=== PATIENT | male | born 1950 | race Caucasian/White ===

== ENCOUNTER 2018-03-16 10:18 | Outpatient (RCR) | payer MEDICARE, BC, SELFPAY ==
--- NOTE | 2018-03-17 09:36 | PT.OIE ---
Current Diagnoses Dizziness and giddiness (03/16/18) Past Surgical History History of carpal tunnel repair History of knee replacement Status post cholecystectomy Status post hernia repair Provider Visit Care Team Role Provider Type Hammad Tucker MD Family Provider Physician Primary Care Provider Specialty: Family Practice Address: [address] [place] [address], [id number] Email: [email or web address] Lior Bejarano MD Attending Provider Physician Specialty: Ear, Nose, Throat Address: [address] [place] [address], [id number] Email: Physical Therapy Initial Evaluation PT-OP-A Visit Information Start: 03/17/18 08:35 Freq: Status: Active Protocol: Document 03/16/18 10:30 DCW (Rec: 03/17/18 08:53 DCW [id number]) Out-Patient Physical Therapy Visit Information Visit Information Visit Type Initial Evaluation Visit Start Time 10:30 Visit Stop Time 11:15 Total Visit Minutes 45 Visit Number 1 Number of ASSOCIATE ACCOUNTANT Visits 0 Evaluation Information Evaluation Date 03/16/18 PT-OP-B Current Condition Start: 03/17/18 08:35 Freq: Status: Active Protocol: Document 03/16/18 10:30 DCW (Rec: 03/17/18 08:53 DCW [id number]) Current Condition History of Current Condition Onset Date s/p one month Current Complaints Worsening balance History of Current Condition Pt is a 67 year old male complaining of a one month history of worsening balance. Pt has previously been treated for BPPV multiple times at this clinic, but feels like his current symptoms are different than they have been in the past. Pt does not that he will still occasionally get some symptoms when rolling over in bed, but it is more an issue when he is walking outside or working in his garden. Patient notes his medical history has not changed since his prior visits , however does admit that his back and neck are worsening, and he has been told he should think about surgical intervention for his low back. Pt denies recent hearing changes, tinnitus, diplopia, dysarthria, discoordination, or decreased mentation/ consciousness. Pt reports symptoms are waxing/waning in nature, noting that they switch off and on constantly. Prior Treatments and Tests Previously successfully treated BPPV with Brittney maneuver Future Testing and Treatments Planned Pt reports he is being sent to [facility] for a full balance work-up. Treatment Goals Patient/Caregiver Goals Pt is curious if his current symptoms are still associated with BPPV, or if he has something else going on. Prior Functional Status Baseline Function- ADL's Independent Baseline Function- Mobility Independent Baseline Function- Recreation/Hobbies Hiking, Fishing, Camping, Gardening Current Functional Impairments (Reported) Functional Limitations- Recreation/ Pt reports he has been more Hobbies active in the garden over the past month, notes that his decreased balance will occasionally bother him, but when he gets out in the [place] walking around, it's generally pretty good. Personal Factors Other Personal Factors That May Effect Cervical and Lumbar DJD Therapy/Recovery PT-OP-C Subjective Start: 03/17/18 08:35 Freq: Status: Active Protocol: Document 03/16/18 10:30 DCW (Rec: 03/17/18 08:53 DCW [id number]) Patient Questionnaires Dizziness Handicap Inventory DHI Score 64 DHI Functional Impairment 60 to 79% Impaired (Score 60- 79) PT-OP-E Functional Tests Start: 03/17/18 08:56 Freq: Status: Active Protocol: Document 03/16/18 10:30 DCW (Rec: 03/17/18 08:58 DCW [id number]) Functional Tests Dynamic Gait Index (DGI) Score 21 DGI Impairment Rating 1 to <20% Impaired (Score 20- 23) Functional Gait Assessment Score 26 Functional Gait Assessment Impairment 1 to <20% Impaired (Score 25- Rating 29) PT-OP-O Vestibular Start: 03/17/18 08:35 Freq: Status: Active Protocol: Document 03/16/18 10:30 DCW (Rec: 03/17/18 08:53 DCW [id number]) Vestibular Assessment Screening Tests Vestibular Artery Screen Negative Auditory Tests Mcgraw Test Negative Rinne Test Negative Air Conduction Results Equal Visual Testing Smooth Pursuits Horizontal Negative Saccades Horizontal Negative Gaze Evoked Nystagmus With Fixation Negative Gaze Evoked Nystagmus Without Fixation Negative Heave Test Negative Thrust Head Negative Positional Testing Locke-Hallpike Negative Left Negative Right Rolling Test Negative Left Negative Right Sidelying Test Negative Left Negative Right PT-OP-T Assessment and Plan Start: 03/17/18 08:35 Freq: Status: Active Protocol: Document 03/16/18 10:30 DCW (Rec: 03/17/18 09:36 DCW [id number]) Physical Therapy Assessment Rehab Potential Rehabilitation Potential Fair Evaluation Complexity Number of Personal Factors/Comorbidities 3 or More Number of Body Systems Impaired 1-2 Clinical Presentation at Evaluation Stable Impairments Impairments Balance Assessment Summary Assessment Patient's vestibular examination is largely negative, with his only impairment being a few points off during both the DGI and FGA, however he is still well within the normal expected limits for his age. discussed findings with the patient, and he agrees that there is nothing specific to work in for skilled therapy, and he is hoping to get more answers from his upcoming complete balance test in [place]. Pt does not have any more appointments scheduled at this time, and he will be discharged, with the understanding that he can return with a new referral if needed after his balance test in [place]. Physical Therapy Plan Frequency and Duration Frequency of Treatment Discharge Duration of Treatment 1 Day Plan of Care Start Date 03/16/18 Plan of Care End Date 03/17/18 Discharge Physical Therapy Discharge Comments Further skilled therapy not indicated at this time. Next Visit Focus/Plan Next Visit Plan Discharge Provider Signature Date
--- NOTE | 2018-03-17 09:36 | PT.OPPOC ---
Current Diagnoses Dizziness and giddiness (03/16/18) Provider Visit Care Team Role Provider Type Hammad Tucker MD Family Provider Physician Primary Care Provider Specialty: Family Practice Address: [address] [place] [address], [id number] Email: [email or web address] Lior Bejarano MD Attending Provider Physician Specialty: Ear, Nose, Throat Address: [address] [place] [address], [phone] Email: Plan Of Care PT-OP-T Assessment and Plan Start: 03/17/18 08:35 Freq: Status: Active Protocol: Document 03/16/18 10:30 DCW (Rec: 03/17/18 09:36 DCW [id number]) Physical Therapy Assessment Rehab Potential Rehabilitation Potential Fair Evaluation Complexity Number of Personal Factors/Comorbidities 3 or More Number of Body Systems Impaired 1-2 Clinical Presentation at Evaluation Stable Impairments Impairments Balance Assessment Summary Assessment Patient's vestibular examination is largely negative, with his only impairment being a few points off during both the DGI and FGA, however he is still well within the normal expected limits for his age. discussed findings with the patient, and he agrees that there is nothing specific to work in for skilled therapy, and he is hoping to get more answers from his upcoming complete balance test in [place]. Pt does not have any more appointments scheduled at this time, and he will be discharged, with the understanding that he can return with a new referral if needed after his balance test in [place]. Physical Therapy Plan Frequency and Duration Frequency of Treatment Discharge Duration of Treatment 1 Day Plan of Care Start Date 03/16/18 Plan of Care End Date 03/17/18 Discharge Physical Therapy Discharge Comments Further skilled therapy not indicated at this time. Next Visit Focus/Plan Next Visit Plan Discharge Plan of Care Dates Plan of Care Start Date 03/16/18 Plan of Care End Date 03/17/18 Please Sign and Return: I have reviewed this Plan of Care and certify that the skilled therapy services above are required to meet the patient???s needs. Physician Signature Date Printed Name and Credentials
== END 2018-04-05 10:47 ==
LOC: PHYS 10:18
PROVIDERS: Family Provider Family Medicine; PCP Family Medicine; Visit Provider Otolaryngology
DX: R42 Dizziness and giddiness (principal)
CPT/HCPCS: 97161

== ENCOUNTER → 2018-04-26 09:30 | Outpatient (CLI) | payer MEDICARE, BC, SELFPAY ==
[2018-04-26 10:16] LABS: Hemoglobin A1C% w Est Avg Glu 7.2 % (4.0-6.0)
[2018-04-26 10:46] LABS: Thyroid Stimulating Hormone 2.77 uIU/mL (0.47-4.68)
== END ==
PROVIDERS: Family Provider Family Medicine; PCP Family Medicine; Visit Provider Family Medicine
DX: E11.9 Type 2 diabetes mellitus without complications (principal)
CPT/HCPCS: 36415; 83036; 84443

== ENCOUNTER → 2018-10-09 12:04 | Outpatient (CLI) | payer MEDICARE, BC, SELFPAY ==
[2018-10-09 13:03] LABS: Hemoglobin A1C% w Est Avg Glu 8.5 % (4.0-6.0)
[2018-10-09 13:57] LABS: BUN Creatinine Ratio 13.8 (6-22); Blood Urea Nitrogen 11 mg/dL (9-20); Calcium 9.8 mg/dL (8.4-10.2); Carbon Dioxide 24 mmol/L (22-32); Chloride 103 mmol/L (98-107); Estimated Glomerular Filt Rate > 60.0 mL/min (>60); Glucose 170 mg/dL (80-110); HEMOLYSIS < 15 (0-50); Potassium 4.4 mmol/L (3.4-5.1); Sodium 141 mmol/L (137-145)
[2018-10-09 14:28] LABS: Thyroid Stimulating Hormone 2.64 uIU/mL (0.47-4.68)
[2018-10-09 15:37] LABS: Creatinine Urine Random 179.9 mg/dL
[2018-10-09 15:42] LABS: Microalbumi Creatinin Ratio Ur 7.7 ug/mg CR (<30); Microalbumin Urine Random 1.4 mg/dL (0-1.6)
== END ==
PROVIDERS: Family Provider Family Medicine; PCP Family Medicine; Visit Provider Family Medicine
DX: E11.9 Type 2 diabetes mellitus without complications (principal); I10 Essential (primary) hypertension
CPT/HCPCS: 36415; 80048; 82043; 82570; 83036; 84443

== ENCOUNTER → 2019-03-12 15:35 | Outpatient (CLI) | payer MEDICARE, BC, SELFPAY ==
[2019-03-12 16:27] LABS: Add Manual Diff / Slide Review NO; Basophils Absolute Auto 0 /uL (0-100); Basophils Percent Auto 0.6 % (0-2); Eosinophils Absolute Auto 200 /uL (0-450); Eosinophils Percent Auto 3.6 % (2-4); Hematocrit 44.6 % (41-53); Hemoglobin 15.6 g/dL (13.5-17.5); Lymphocytes Absolute Auto 1400 /uL (1100-4500); Lymphocytes Percent Auto 22.9 % (25-40); Mean Corpuscular HGB Conc 34.9 % (30-36); Mean Corpuscular Hemoglobin 35.3 PG (26-34); Mean Corpuscular Volume 101.2 fL (80-100); Monocytes Absolute Auto 500 /uL (0-900); Monocytes Percent Auto 7.8 % (3-14); Neutrophils Absolute Auto 4000 /uL (1500-7000); Neutrophils Percent Auto 65.1 % (50-75); Platelet Count 206 X10^3/uL (150-400); Red Blood Cell Count 4.41 X10^6/uL (4.5-5.9); Red Cell Distribution Width 13.1 % (11.6-14.8); White Blood Cell Count 6.1 X10^3/uL (4.5-11.0)
[2019-03-12 16:37] LABS: Hemoglobin A1C% w Est Avg Glu 7.3 % (4.0-6.0)
[2019-03-12 16:57] LABS: Alanine Aminotransferase 36 IU/L (21-72); Albumin 4.3 g/dL (3.5-5.0); Albumin Globulin Ratio 1.9 (1.0-2.8); Alkaline Phosphatase 87 U/L (38-126); Aspartate Aminotransferase 50 IU/L (17-59); BUN Creatinine Ratio 21.1 (6-22); Bilirubin Total 0.6 mg/dL (0.2-1.3); Blood Urea Nitrogen 19 mg/dL (9-20); Calcium 9.9 mg/dL (8.4-10.2); Carbon Dioxide 25 mmol/L (22-32); Chloride 105 mmol/L (98-107); Cholesterol 157 mg/dL (140-199); Estimated Glomerular Filt Rate > 60.0 mL/min (>60); Globulin 2.3 g/dL (1.7-4.1); Glucose 138 mg/dL (80-110); HDL Cholesterol 53 mg/dL (40-60); HEMOLYSIS < 15 (0-50); LDL Cholesterol Calculated 82 mg/dL (<100); Potassium 4.1 mmol/L (3.4-5.1); Sodium 140 mmol/L (137-145); Total Protein 6.6 g/dL (6.3-8.2); Triglycerides 109 mg/dL (35-150)
[2019-03-12 17:25] LABS: Prostate Specific Antigen Scrn 1.37 ng/mL (0.1-4.0); Thyroid Stimulating Hormone 1.64 uIU/mL (0.47-4.68)
== END ==
PROVIDERS: Family Provider Family Medicine; PCP Family Medicine; Visit Provider Family Medicine
DX: E78.2 Mixed hyperlipidemia (principal); E03.9 Hypothyroidism, unspecified; Z12.5 Encounter for screening for malignant neoplasm of prostate; E11.9 Type 2 diabetes mellitus without complications
CPT/HCPCS: 36415; 80053; 80061; 83036; 84443; 85025; G0103

== ENCOUNTER → 2019-07-11 15:24 | Outpatient (CLI) | payer MEDICARE, BC, SELFPAY ==
[2019-07-11 16:17] LABS: Blood Urea Nitrogen 18 mg/dL (9-20); Calcium 9.9 mg/dL (8.4-10.2); Carbon Dioxide 25 mmol/L (22-32); Chloride 104 mmol/L (98-107); Estimated Glomerular Filt Rate > 60.0 mL/min (>60); Glucose 174 mg/dL (80-110); HEMOLYSIS < 15 (0-50); Potassium 4.2 mmol/L (3.4-5.1); Sodium 140 mmol/L (137-145)
== END ==
PROVIDERS: PCP Family Medicine; Visit Provider Family Medicine
DX: E11.9 Type 2 diabetes mellitus without complications (principal)
CPT/HCPCS: 36415; 80048; 83036

== ENCOUNTER → 2019-08-02 10:46 | Outpatient (CLI) | payer MEDICARE, BC, SELFPAY | PROVIDERS: PCP Family Medicine; Visit Provider Family Medicine | DX: M79.601 Pain in right arm (principal); R25.2 Cramp and spasm | CPT/HCPCS: 95885; 95886; 95910 ==

== ENCOUNTER → 2019-08-14 12:13 | Outpatient (CLI) | payer MEDICARE, BC, SELFPAY ==
[2019-08-14 13:46] LABS: BUN Creatinine Ratio 18.6 (6-22); Blood Urea Nitrogen 13 mg/dL (9-20); Calcium 9.6 mg/dL (8.4-10.2); Carbon Dioxide 24 mmol/L (22-32); Chloride 101 mmol/L (98-107); Estimated Glomerular Filt Rate > 60.0 mL/min (>60); Glucose 262 mg/dL (80-110); HEMOLYSIS < 15 (0-50); Potassium 4.1 mmol/L (3.4-5.1); Sodium 138 mmol/L (137-145)
[2019-08-14 13:57] LABS: Vitamin D 25 Hydroxy (D3) 32.7 ng/mL (30.0-100.0)
[2019-08-14 14:29] LABS: Vitamin B12 450 pg/mL (239-931)
[2019-08-16 18:33] LABS: Folate, RBC 440 ng/mL RBC (> 280)
== END ==
PROVIDERS: PCP Family Medicine; Visit Provider Hospitalist
DX: R53.83 Other fatigue (principal); I10 Essential (primary) hypertension
CPT/HCPCS: 36415; 80048; 82306; 82607; 82747

== ENCOUNTER → 2019-08-21 10:43 | Outpatient (CLI) | payer MEDICARE, BC, SELFPAY ==
[2019-08-21 11:45] LABS: Hemoglobin A1C% w Est Avg Glu 7.1 % (4.0-6.0)
[2019-08-21 12:02] LABS: Blood Urea Nitrogen 16 mg/dL (9-20); Calcium 9.8 mg/dL (8.4-10.2); Carbon Dioxide 22 mmol/L (22-32); Chloride 104 mmol/L (98-107); Estimated Glomerular Filt Rate > 60.0 mL/min (>60); Glucose 128 mg/dL (80-110); HEMOLYSIS < 15 (0-50); Potassium 4.5 mmol/L (3.4-5.1); Sodium 138 mmol/L (137-145)
== END ==
PROVIDERS: PCP Family Medicine; Visit Provider Family Medicine
DX: E11.9 Type 2 diabetes mellitus without complications (principal)
CPT/HCPCS: 36415; 80048; 83036

== ENCOUNTER 2019-09-25 16:41 | Emergency (ER) | payer MEDICARE, BC, SELFPAY ==
[2019-09-25 16:48] VITALS: BP 153/101; PULSE 77; RESP 16; TEMP 36.6; O2SAT 95
--- NOTE | 2019-09-25 16:53 | ED.EYEPROB ---
HPI - Eye Problem <Slime Atwood PA-C - Last Filed: 09/25/19 19:25> General Chief complaint: Eye Problems Stated complaint: VISION GWEN BLACK WHEN DRIVING Time Seen by Provider: 09/25/19 16:53 Source: patient Mode of arrival: Ambulatory Limitations: no limitations History of Present Illness HPI Narrative: This 69-year-old gentleman drove to ED secondary to transient visual change while driving. He states that his vision just got somewhat cloudy in both eyes for 3 or 4 seconds, and he felt a little bit flushed, then back to normal. He states that he has been feeling fine today, no recent illness or fever. He states he has had some stress dealing with his 's illness so is somewhat tired but other than that feels normal. He has not had any chest pain, palpitations or dyspnea. He denies any difficulty with speech, swallowing or coordination today, and states he is currently feeling at his baseline. He does have history of atrial fibrillation and had cardioversion for that years ago, not symptomatic now. Has a history of diabetes that is currently diet controlled and hyperlipidemia, denies history of HTN, no history of CVA or PR Related Data Home Medications Medication Instructions Recorded Confirmed omeprazole 20 mg capsule,delayed 20 mg PO BID 08/28/19 09/25/19 release clindamycin phosphate 1 applic TOPICAL DIRECTED 09/25/19 09/25/19 ketoconazole TOPICAL 09/25/19 levothyroxine 100 mcg PO DAILY 09/25/19 09/25/19 Allergies Allergy/AdvReac Type Severity Reaction Status Date / Time No Known Allergies Allergy Uncoded 08/28/19 09:46 Review of Systems <Slime Atwood PA-C - Last Filed: 09/25/19 19:25> Review of Systems ROS Unobtainable: All systems reviewed & are unremarkable except as noted in HPI and below Patient History <Slime Atwood PA-C - Last Filed: 09/25/19 19:25> Medical History (Updated 09/25/19 @ 18:25 by Slime Awtood PA-C) Atrial fibrillation (Resolved 03/12/14) Hyperlipidemia (Chronic) Type 2 diabetes mellitus without complication (Chronic 11/16/17) Surgical History History of carpal tunnel repair History of knee replacement Status post cholecystectomy Status post hernia repair Social History marital status: number of children: 1 household members: spouse lives independently: Yes caregiver/support person: No housing: house pets and animals: No education level: college occupational status: other (Retired) current occupational exposures/hazards: No 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 HEENT: PERRLA, EOMI, vision OS 20/20, OD 20/20, OU 20/15 NECK: Supple LUNGS: Clear to auscultation bilaterally. HEART: Rate and rhythm regular without murmur, normal S1 and S2, no S3 or S4. ABDOMEN: Soft, NT, ND, + BS x 4 quadrants NEUROLOGIC: Alert and oriented, normal speech, gait and coordination. Cranial nerves III-XII grossly intact, strength intact throughout the extremities without pronator drift MUSCULOSKELETAL: No ROM deficit, it help desk associate strength 5/5 bilaterally, hip flexor strength 5/5 bilaterally DERMATOLOGIC: No exanthem Initial Vital Signs Initial Vital Signs: Vital Signs Temperature 97.8 F 09/25/19 16:48 Pulse Rate 77 09/25/19 16:48 Respiratory Rate 16 09/25/19 16:48 Blood Pressure 153/101 H 09/25/19 16:48 Pulse Oximetry 95 09/25/19 16:48 <Kristen Javier DO - Last Filed: 09/26/19 07:50> Initial Vital Signs Initial Vital Signs: Vital Signs Temperature 97.8 F 09/25/19 16:48 Pulse Rate 77 09/25/19 16:48 Respiratory Rate 16 09/25/19 16:48 Blood Pressure 153/101 H 09/25/19 16:48 Pulse Oximetry 95 09/25/19 16:48 Scores <JOEDE Penny Last Filed: 09/25/19 19:25> NIH Stroke Scale Level of Conciousness: Alert, keenly responsive Ask month/age: Answers both questions correctly. Open/close eyes, close hand: Performs both tasks correctly Best gaze horizontal: Normal Visual adorno: No visual loss Facial palsy: Normal symetrical movement Left arm drift: No drift for full 10 sec Right arm drift: No drift for full 10 sec Left leg drift: No drift for full 10 sec Right leg drift: No drift for full 10 sec Limb ataxia: Absent Sensory on face/arms/legs: Normal, no sensory loss Best language: No aphasia, normal Dysarthria: Normal Extinction or inattention: No abnormality Total NIH Stroke scale score: 0 Course <Slime Atwood PA-C - Last Filed: 09/25/19 19:25> Course Additional Information: Reviewed findings with attending Dr. Javier, who agrees binocular symptoms of this nature would be atypical for TIA. Patient is feeling well currently. No acute findings on workup. Advised trial of 81 mg ASA daily while waiting follow-up with PCP since patient does have history of AFib. He is agreeable with this as well as plan to return right away if any recurrent or concerning new symptoms. Orders Ordered: ED Orders 09/25/19 17:00 Basic Metabolic Panel Stat Complete Blood Count AUTO DIFF Stat Partial Thromboplastin Time Stat Prothrombin Time INR Stat 09/25/19 17:05 CT head/brain wo con Stat EKG-12 Lead Stat Vital Signs Vital signs: Vital Signs - 8 hr 09/25/19 16:48 Temperature 97.8 F Pulse Rate 77 Respiratory Rate 16 Blood Pressure 153/101 H Pulse Oximetry 95 <Kristen Javier DO - Last Filed: 09/26/19 07:50> Orders Ordered: ED Orders 09/25/19 17:00 Basic Metabolic Panel Stat Complete Blood Count AUTO DIFF Stat Partial Thromboplastin Time Stat Prothrombin Time INR Stat 09/25/19 17:05 CT head/brain wo con Stat EKG-12 Lead Stat Vital Signs Vital signs: Vital Signs - 8 hr 09/25/19 16:48 Temperature 97.8 F Pulse Rate 77 Respiratory Rate 16 Blood Pressure 153/101 H Pulse Oximetry 95 MDM - Eye Problem <Slime Atwood PA-C - Last Filed: 09/25/19 19:25> Lab Data Attestation: I reviewed the patient's lab results. Result diagrams: 09/25/19 17:00 09/25/19 17:00 Labs: Lab Results 09/25/19 09/25/19 09/25/19 Range/Units 17:00 17:00 17:00 WBC 6.8 (4.5-11.0) X10^3/uL RBC 4.91 (4.5-5.9) X10^6/uL Hgb 17.3 (13.5-17.5) g/dL Hct 49.0 (41-53) % MCV 100.0 (80-100) fL MCH 35.3 H (26-34) PG MCHC 35.3 (30-36) % RDW 13.5 (11.6-14.8) % Plt Count 202 (150-400) X10^3/uL Neut % (Auto) 57.7 (50-75) % Lymph % (Auto) 25.8 (25-40) % Dougherty % (Auto) 11.1 (3-14) % Eos % (Auto) 4.3 H (2-4) % Baso % (Auto) 1.1 (0-2) % Neut # (Auto) 3900 (9387-2201) /uL Lymph # (Auto) 1800 (2883-0474) /uL Dougherty # (Auto) 800 (0-900) /uL Eos # (Auto) 300 (0-450) /uL Baso # (Auto) 100 (0-100) /uL PT 12.4 (10.1-12.7) SECONDS INR 1.1 (0.9-1.3) APTT 31 (26.4-36.2) SECONDS Sodium 136 L (137-145) mmol/L Potassium 4.2 (3.4-5.1) mmol/L Chloride 105 (98-107) mmol/L Carbon Dioxide 22 (22-32) mmol/L BUN 13 (9-20) mg/dL Creatinine 0.80 (0.66-1.25) mg/dL Estimated GFR > 60.0 (>60) mL/min BUN/Creatinine Ratio 16.3 (6-22) Glucose 189 H (80-110) mg/dL Calcium 9.4 (8.4-10.2) mg/dL Point of Care Testing Glucose POC [address] scan - head: Radiologist's impression: [facility] [address] [place] [address] CT Scan Report Signed Patient: Joel Moreland BMR#: [id number] : 8Acct:[id number] Age/Sex: 69 / MDate of Service: 09/25/19 Loc: ED Accession Number: [id number] Procedure: CT head/brain wo con Ordering Provider: Slime Atwood P.A-C PROCEDURE: CT HEAD/BRAIN WO CON INDICATIONS: transient vision change TECHNIQUE: Noncontrast 4.5 mm thick angled axial sections acquired from the foramen magnum to the vertex, with coronal and sagittal reformats. For radiation dose reduction, the following was used: automated exposure control, adjustment of mA and/or kV according to patient size. COMPARISON: [facility], CT, HEAD WITHOUT CONTRAST, 10/30/2014, 12:04. FINDINGS: Image quality: Excellent. CSF spaces: Basal cisterns are patent. No extra-axial fluid collections. The ventricles are symmetric in size and shape. Brain: No intracranial bleeds or masses. There is cerebral volume loss for age, with resultant ventricular and sulcal prominence. There are periventricular and deep white matter chronic small vessel ischemic changes. There is intracranial internal carotid artery atherosclerosis. Skull and face: Calvarium and visualized facial bones appear intact, without suspicious lesions. Sinuses: Visualized sinuses and mastoids are clear. IMPRESSION: 1. No acute intracranial process. 2. Mild atrophy and chronic microvascular ischemic changes. Dictated by: Jeri Castro M.D. on 09/25/2019 at 18:02 Approved by: Jeri Castro M.D. on 09/25/2019 at 18:03 ECG Data Attestation: I personally reviewed and interpreted this ECG as follows: (NSR rate 73, nl axis) Prior ECG tracings: available for review <Kristen Javier, - Last Filed: 09/26/19 07:50> Lab Data Labs: Lab Results 09/25/19 09/25/19 09/25/19 Range/Units 17:00 17:00 17:00 WBC 6.8 (4.5-11.0) X10^3/uL RBC 4.91 (4.5-5.9) X10^6/uL Hgb 17.3 (13.5-17.5) g/dL Hct 49.0 (41-53) % MCV 100.0 (80-100) fL MCH 35.3 H (26-34) PG MCHC 35.3 (30-36) % RDW 13.5 (11.6-14.8) % Plt Count 202 (150-400) X10^3/uL Neut % (Auto) 57.7 (50-75) % Lymph % (Auto) 25.8 (25-40) % Dougherty % (Auto) 11.1 (3-14) % Eos % (Auto) 4.3 H (2-4) % Baso % (Auto) 1.1 (0-2) % Neut # (Auto) 3900 (5046-0936) /uL Lymph # (Auto) 1800 (1320-4925) /uL Dougherty # (Auto) 800 (0-900) /uL Eos # (Auto) 300 (0-450) /uL Baso # (Auto) 100 (0-100) /uL PT 12.4 (10.1-12.7) SECONDS INR 1.1 (0.9-1.3) APTT 31 (26.4-36.2) SECONDS Sodium 136 L (137-145) mmol/L Potassium 4.2 (3.4-5.1) mmol/L Chloride 105 (98-107) mmol/L Carbon Dioxide 22 (22-32) mmol/L BUN 13 (9-20) mg/dL Creatinine 0.80 (0.66-1.25) mg/dL Estimated GFR > 60.0 (>60) mL/min BUN/Creatinine Ratio 16.3 (6-22) Glucose 189 H (80-110) mg/dL Calcium 9.4 (8.4-10.2) mg/dL Point of Care Testing Glucose POC 155 ECG Data Attestation: I personally reviewed and interpreted this ECG as follows: Prior ECG tracings: available for review Interpretation: Normal sinus rhythm rate 73 p.r. interval 156 QRS [address] changes no T-wave inversions similar to previous EKG in 2017 Discharge Plan Departure Patient Disposition: Home Clinical Impression: Binocular visual disturbance Discharge Date/Time: 09/25/19 18:42 Activity Restrictions/Additional Instructions: The source of your brief episode of cloudy vision today is not clear, there was no evidence of a stroke and this was not typical for a TIA or mini-stroke. We did not find any problems on your testing to explain this. It is reasonable for you to monitor at home for now, but please call your PCP office tomorrow and set up a follow-up visit. Please start taking a baby aspirin (81 mg) daily until then and discuss with your PCP when you follow-up since you do have a history of atrial fibrillation. As we talked about, you should return if you have any recurrent symptoms or new symptoms such as weakness, difficulty with speech or swallowing, or irregular heartbeat or palpitations. Thank you for the your service and happy Thanksgiving Prescriptions: No Action omeprazole 20 mg capsule,delayed release(DR/EC) 20 mg PO BID RF: 0 ketoconazole 2 % shampoo TOPICAL RF: 0 levothyroxine 100 mcg tablet 100 mcg PO DAILY RF: 0 clindamycin phosphate 1 % solution 1 applic TOPICAL DIRECTED RF: 0 Referrals: Hammad Tucker MD [Primary Care Provider] -
--- NOTE | 2019-09-25 17:05 | DI.CT.S_ITS ---
PROCEDURE: CT HEAD/BRAIN WO CON INDICATIONS: transient vision change TECHNIQUE: Noncontrast 4.5 mm thick angled axial sections acquired from the foramen magnum to the vertex, with coronal and sagittal reformats. For radiation dose reduction, the following was used: automated exposure control, adjustment of mA and/or kV according to patient size. COMPARISON: [facility], CT, HEAD WITHOUT CONTRAST, 10/30/2014, 12:04. FINDINGS: Image quality: Excellent. CSF spaces: Basal cisterns are patent. No extra-axial fluid collections. The ventricles are symmetric in size and shape. Brain: No intracranial bleeds or masses. There is cerebral volume loss for age, with resultant ventricular and sulcal prominence. There are periventricular and deep white matter chronic small vessel ischemic changes. There is intracranial internal carotid artery atherosclerosis. Skull and face: Calvarium and visualized facial bones appear intact, without suspicious lesions. Sinuses: Visualized sinuses and mastoids are clear. IMPRESSION: 1. No acute intracranial process. 2. Mild atrophy and chronic microvascular ischemic changes. Dictated by: Jeri Castro M.D. on 09/25/2019 at 18:02 Approved by: Jeri Castro M.D. on 09/25/2019 at 18:03
[2019-09-25 17:11] LABS: Add Manual Diff / Slide Review NO; Basophils Absolute Auto 100 /uL (0-100); Basophils Percent Auto 1.1 % (0-2); Eosinophils Absolute Auto 300 /uL (0-450); Eosinophils Percent Auto 4.3 % (2-4); Hemoglobin 17.3 g/dL (13.5-17.5); Lymphocytes Absolute Auto 1800 /uL (1100-4500); Lymphocytes Percent Auto 25.8 % (25-40); Mean Corpuscular HGB Conc 35.3 % (30-36); Mean Corpuscular Hemoglobin 35.3 PG (26-34); Monocytes Absolute Auto 800 /uL (0-900); Monocytes Percent Auto 11.1 % (3-14); Neutrophils Absolute Auto 3900 /uL (1500-7000); Neutrophils Percent Auto 57.7 % (50-75); Platelet Count 202 X10^3/uL (150-400); Red Blood Cell Count 4.91 X10^6/uL (4.5-5.9); Red Cell Distribution Width 13.5 % (11.6-14.8); White Blood Cell Count 6.8 X10^3/uL (4.5-11.0)
[2019-09-25 17:12] LABS: INR 1.1 (0.9-1.3); Prothrombin Time 12.4 SECONDS (10.1-12.7)
[2019-09-25 17:15] LABS: PTT Partial Thromboplastin Tim 31 SECONDS (26.4-36.2)
[2019-09-25 17:16] LABS: BUN Creatinine Ratio 16.3 (6-22); Blood Urea Nitrogen 13 mg/dL (9-20); Calcium 9.4 mg/dL (8.4-10.2); Carbon Dioxide 22 mmol/L (22-32); Chloride 105 mmol/L (98-107); Estimated Glomerular Filt Rate > 60.0 mL/min (>60); Glucose 189 mg/dL (80-110); Potassium 4.2 mmol/L (3.4-5.1); Sodium 136 mmol/L (137-145)
[2019-09-25 17:17] LABS: HEMOLYSIS 51 (0-50)
== END 2019-09-25 18:42 | disposition home or self-care (01) ==
PROVIDERS: Emergency Provider Internal Medicine; PCP Family Medicine
DX: H53.30 Unspecified disorder of binocular vision (principal); E11.9 Type 2 diabetes mellitus without complications; E78.2 Mixed hyperlipidemia
CPT/HCPCS: 36415; 70450; 80048; 82962; 85025; 85610; 85730; 93005; 99283; 99285

== ENCOUNTER → 2019-10-09 10:13 | Outpatient (CLI) | payer MEDICARE, BC, SELFPAY ==
--- NOTE | 2019-10-09 10:14 | DI.US.S_ITS ---
PROCEDURE: US CAROTID DOPPLER BI INDICATIONS: VISION CHANGES, DIZZINESS TECHNIQUE: Color and pulse Doppler interrogation was performed of both carotid systems, with image documentation and velocity measurements. COMPARISON: None. FINDINGS: Stenosis calculations are based on SRU (Society of Radiologists in Ultrasound) criteria. Right side: Brachial blood pressure: 137/84 mm Hg. Common carotid artery peak systolic velocity: 82 cm/sec. Internal carotid artery peak systolic velocity: 60 cm/sec. Internal carotid artery end diastolic velocity: 20 cm/sec. External carotid artery peak systolic velocity: 71 cm/sec. ICA/CCA peak systolic ratio: 0.7. Guerrero scale imaging description: Mild scattered plaque. Percent internal carotid artery stenosis: Less than 50%. Vertebral artery: Flow direction is antegrade. Left side: Brachial blood pressure: 167/94 mm Hg. Common carotid artery peak systolic velocity: 93 cm/sec. Internal carotid artery peak systolic velocity: 70 cm/sec. Internal carotid artery end diastolic velocity: 33 cm/sec. External carotid artery peak systolic velocity: 76 cm/sec. ICA/CCA peak systolic ratio: 0.8. Guerrero scale imaging description: Mild scattered plaque. Percent internal carotid artery stenosis: Less than 50%. Vertebral artery: Flow direction is antegrade. IMPRESSION: Less than 50% bilateral internal carotid artery stenosis. Dictated by: Taj Wall [facility] Interpreted: Jeri Castro MD on 10/09/2019 at 13:03 Approved by: Jeri Castro M.D. on 10/09/2019 at 15:47
--- NOTE | 2019-10-09 10:14 | DI.MRI.S_ITS ---
PROCEDURE: MR STROKE Pre- and post-contrast brain MRI, non-contrast brain MR angiogram, pre- and postcontrast neck MR angiogram INDICATIONS: blurry vision, dizziness TECHNIQUE: Brain: Noncontrast axial T1 spin echo, axial T2 fast spin echo, sagittal and axial FLAIR, coronal T2 fast spin echo, axial gradient echo, axial diffusion and ADC through the brain. After the administration of contrast, axial 3D VIBE of the cranial vasculature and brain. Brain MRA: Non-contrast 3-D time of flight MR angiogram, with multiple xcgdmce-vggwankgq-mxiaxgrdag (MIP) reformats performed. Neck MRA: Axial and sagittal TruFISP through the neck. Coronal dynamic MR angiogram during administration of contrast in the arterial and venous phases, with 3-dimenstional yfyaqpy-efbbqktsn-cdzysfaylf (MIP) reformats constructed from subtraction images. COMPARISON: [facility], MR, BRAIN (IAC) W&WO CONTRAST, 12/06/2012, 8:32. [facility], CT, CT HEAD/BRAIN WO CON, 09/25/2019, 17:35. FINDINGS: Image quality: Excellent. BRAIN: CSF spaces: Ventricles are normal in size and shape. Basal cisterns are patent. No extra-axial fluid collections. Brain: No intracranial bleeds or mass effects. Guerrero-white matter interface is normal. There is a small focus of T2 hyperintensity in the right christiansen radiata. Diffusion weighted images show no acute ischemic insults. Brainstem appears normal. Normal intravascular flow voids are present. No abnormal intracranial enhancement. Skull and face: Calvarial marrow signal is normal. Orbits appear normal. Sinuses: Sinuses and mastoids are clear. BRAIN MR ANGIOGRAM: Anterior circulation: Intracranial internal carotid arteries are normal in size and enhancement. The flow within the paired anterior cerebral arteries is normal and symmetric. The flow within the middle cerebral arteries is normal and symmetric. The anterior communicating artery is seen. No stenoses, occlusions, or aneurysms. Posterior circulation: The visualized portions of the vertebral arteries demonstrate normal caliber, and join to form a normal appearing basilar artery. The flow within the posterior cerebral arteries is normal and symmetric. No stenoses, occlusions, or aneurysms. NECK MR ANGIOGRAM: Carotids: Great vessels demonstrate a conventional anatomy as they arise from the aortic arch. The origins of the common carotid arteries appear patent. The calibers and courses of both common carotid arteries are normal. The bifurcation regions appear normal bilaterally. The internal carotid arteries demonstrate normal course and caliber. Posterior circulation: The origins of the vertebral arteries appear patent. More superior portions of both vertebral arteries demonstrate normal course and caliber, and join to form a normal appearing basilar artery. Miscellaneous: Subclavian arteries appear patent. Pre-contrast images through the neck show no soft tissue abnormalities. IMPRESSION: BRAIN MRI: 1. No acute intracranial abnormalities. 2. There is a small focus of T2 hyperintensity in the right christiansen radiata, most likely secondary to chronic small vessel ischemic change. BRAIN MR ANGIOGRAM: 1. No high-grade stenosis or occlusion in anterior or posterior circulations. NECK MR ANGIOGRAM: 1. No significant stenosis in cervical carotid arteries. 2. No significant stenosis in cervical vertebral arteries. Dictated by: Rosanne Penn M.D. on 10/09/2019 at 14:07 Approved by: Rosanne Penn M.D. on 10/09/2019 at 14:17
== END ==
PROVIDERS: PCP Family Medicine; Referring Provider Orthopaedic Surgery Orthopaedic Surgery of the Spine; Visit Provider Family Medicine
DX: I65.23 Occlusion and stenosis of bilateral carotid arteries (principal); R42 Dizziness and giddiness; H53.8 Other visual disturbances
CPT/HCPCS: 70548; 70553; 93880

== ENCOUNTER → 2019-11-28 06:35 | Outpatient (CLI) | payer MEDICARE, BC, SELFPAY ==
--- NOTE | 2019-11-28 06:37 | DI.ECHO.S_ITS ---
[facility]---------+ [facility] +---------+ : : [address] : : : : [id number] : : : : Phone: [phone]+ Echocardiogram Report + + :Name: AURY ANDREW Study Date: 11/28/2019 Height: 71 in : :[facility] Weight: 210 lb : : Gender: Male BSA: 2.2 m2 : :: 1950 Age: 69 yrs BP: 148/92 mmHg: :Reason For Study: AFIB : :Ordering Physician: Dr. Cueva : :[place] Performed By: Hong Becerra : :Referring: VASU LOPEZ : + + Interpretation Summary The left ventricle is normal in size. The ejection fraction is estimated to be 55-60%. The right ventricle is at the upper limits of normal in size. The right ventricular systolic function is normal. There is mild tricuspid regurgitation. Compared to the prior echo exam, there has been no change in TR severity. Right ventricular systolic pressure is estimated to be 16 mmHg plus the clinically estimated CVP which cannot be estimated on this exam. Procedure: A two-dimensional transthoracic echocardiogram with color flow and Doppler was performed. The study quality was technically adequate. Prior echo performed on 03/07/14. The patient was in sinus bradycardia with heart rates between 54-58 bpm during the exam. Left Ventricle: The left ventricle is normal in size. Left ventricular wall thickness is mildly increased. There is no thrombus. The ejection fraction is estimated to be 55-60%. There are no focal wall motion abnormalities. Diastolic parameters suggest a relaxation abnormality of the left ventricle, consistent with probable normal filling pressures. Right Ventricle: The right ventricle is at the upper limits of normal in size. The right ventricular systolic function is normal. Atria: The left atrium is mildly dilated. The left atrium has remained unchanged in size since the prior echo exam. The right atrium is mild to moderately dilated. The interatrial septum is intact with no evidence for an atrial septal defect. Mitral Valve: There is mild mitral annular calcification. There is trace mitral regurgitation. Aortic Valve: The aortic valve is trileaflet. The aortic valve opens well. There is trace aortic regurgitation. Tricuspid Valve: The tricuspid valve is normal. There is mild tricuspid regurgitation. Right ventricular systolic pressure is estimated to be 16 mmHg plus the clinically estimated CVP which cannot be estimated on this exam. Compared to the prior echo exam, there has been no change in TR severity. Pulmonic Valve: The pulmonic valve is not well seen, but is grossly normal. There is trace pulmonic regurgitation. Great Vessels: The aortic root is normal size. The ascending aorta is at the upper limits of normal in size. The inferior vena cava was not well visualized. Pericardium/ Pleura There is no pericardial effusion. There is no pleural effusion. MMode/2D Measurements & Calculations LVIDd: 4.6 cm LVOT diam: 2.2 cm LVIDs: 3.0 cm Ao root diam: 3.9 cm FS: 33.6 % asc Aorta Diam: 3.9 cm EPSS: 1.0 cm Ao Arch Diam (Prox Trans): 3.0 cm IVSd: 1.2 cm LVPWd: 1.3 cm LV flaherty. diameter/BSA (cm/m^2): 2.1 LV sys. diameter/BSA (cm/m^2): 1.4 LA A2 area: 27.8 cm2 RA long axis: 5.7 cm LA A4 area: 19.3 cm2 RA area: 22.5 cm2 LA length (vol): 5.5 cm RA vol: 76.0 ml LA vol: 83.7 ml RA : 35.3 ml/m2 LA vol index: 38.9 ml/m2 TAPSE: 2.5 cm Doppler Measurements & Calculations Ao V2 max: 118.2 cm/sec LVOT Max Sterling: 119.1 cm/sec Ao V2 mean: 79.7 cm/sec LV V1 max P.7 mmHg Ao max P.6 mmHg LV V1 VTI: 26.8 cm Ao mean P.9 mmHg JEAN(I,D): 4.1 cm2 Ao V2 VTI: 24.3 cm JEAN(V,D): 3.8 cm2 sev ratio: 1.1 JEAN indexed to BSA (cm^2/m^2): 1.9 MV E max sterling: 42.2 cm/sec TR max sterling: 199.8 cm/sec MV A max sterling: 62.2 cm/sec TR max P.0 mmHg MV E/A: 0.68 PA V2 max: 70.6 cm/sec Med Peak E' Sterling: 8.2 cm/sec PA V2 mean: 51.1 cm/sec E/E' med: 5.2 PA mean P.2 mmHg Lat Peak E' Sterling: 8.2 cm/sec PA Accel Time: 0.11 sec E/E' lat: 5.1 E/e' average: 5.2 MV dec time: 0.34 sec SV(LVOT): 100.1 ml Reading Physician:07:23 PM
== END ==
PROVIDERS: PCP Family Medicine; Visit Provider Family Medicine
DX: I07.1 Rheumatic tricuspid insufficiency (principal); I48.91 Unspecified atrial fibrillation
CPT/HCPCS: 93306

== ENCOUNTER → 2019-12-06 09:23 | Outpatient (CLI) | payer MEDICARE, BC, SELFPAY | PROVIDERS: PCP Family Medicine; Referring Provider Family Medicine; Visit Provider Family Medicine | DX: I48.91 Unspecified atrial fibrillation (principal) | CPT/HCPCS: 0296T ==

== ENCOUNTER → 2020-02-22 12:05 | Outpatient (CLI) | payer MEDICARE, BC, SELFPAY ==
[2020-02-22 14:50] LABS: Add Manual Diff / Slide Review NO; Basophils Absolute Auto 0 /uL (0-100); Basophils Percent Auto 0.6 % (0-2); Eosinophils Absolute Auto 200 /uL (0-450); Eosinophils Percent Auto 2.5 % (2-4); Hematocrit 47.2 % (41-53); Hemoglobin 16.7 g/dL (13.5-17.5); Lymphocytes Absolute Auto 1400 /uL (1100-4500); Lymphocytes Percent Auto 22.8 % (25-40); Mean Corpuscular HGB Conc 35.4 % (30-36); Mean Corpuscular Hemoglobin 36.4 PG (26-34); Mean Corpuscular Volume 102.9 fL (80-100); Monocytes Absolute Auto 600 /uL (0-900); Neutrophils Absolute Auto 3900 /uL (1500-7000); Neutrophils Percent Auto 64.1 % (50-75); Platelet Count 193 X10^3/uL (150-400); Red Blood Cell Count 4.59 X10^6/uL (4.5-5.9); Red Cell Distribution Width 13.2 % (11.6-14.8); White Blood Cell Count 6.2 X10^3/uL (4.5-11.0)
[2020-02-22 16:07] LABS: Alanine Aminotransferase 36 IU/L (<50); Albumin 4.3 g/dL (3.5-5.0); Albumin Globulin Ratio 1.5 (1.0-2.8); Alkaline Phosphatase 127 U/L (38-126); Aspartate Aminotransferase 36 IU/L (17-59); BUN Creatinine Ratio 17.3 (6-22); Bilirubin Total 0.6 mg/dL (0.2-1.3); Blood Urea Nitrogen 13 mg/dL (9-20); Calcium 9.8 mg/dL (8.4-10.2); Carbon Dioxide 24 mmol/L (22-32); Chloride 102 mmol/L (98-107); Estimated Glomerular Filt Rate > 60.0 mL/min (>60); Globulin 2.9 g/dL (1.7-4.1); Glucose 282 mg/dL (80-110); HEMOLYSIS < 15 (0-50); Magnesium 1.9 mg/dL (1.6-2.3); Potassium 4.2 mmol/L (3.4-5.1); Sodium 136 mmol/L (137-145); Total Protein 7.2 g/dL (6.3-8.2)
[2020-02-22 16:27] LABS: Hemoglobin A1C% w Est Avg Glu 9.4 % (4.0-6.0)
[2020-02-22 16:30] LABS: Thyroid Stimulating Hormone 4.28 uIU/mL (0.47-4.68)
[2020-02-22 17:00] LABS: TSH w/ Reflex to FT4 4.23 uIU/mL (0.47-4.68)
== END ==
PROVIDERS: PCP Family Medicine; Referring Provider Family Medicine; Visit Provider Family Medicine
DX: I48.91 Unspecified atrial fibrillation (principal)
CPT/HCPCS: 36415; 80053; 83036; 83735; 84443; 85025

== ENCOUNTER → 2020-03-21 09:53 | Outpatient (CLI) | payer MEDICARE, BC, SELFPAY ==
[2020-03-21 11:15] LABS: Hemoglobin A1C% w Est Avg Glu 9.1 % (4.0-6.0)
[2020-03-21 11:27] LABS: Alanine Aminotransferase 33 IU/L (<50); Albumin 4.2 g/dL (3.5-5.0); Albumin Globulin Ratio 1.4 (1.0-2.8); Alkaline Phosphatase 96 U/L (38-126); Aspartate Aminotransferase 40 IU/L (17-59); BUN Creatinine Ratio 18.2 (6-22); Bilirubin Total 0.4 mg/dL (0.2-1.3); Blood Urea Nitrogen 14 mg/dL (9-20); Calcium 9.6 mg/dL (8.4-10.2); Carbon Dioxide 26 mmol/L (22-32); Chloride 102 mmol/L (98-107); Estimated Glomerular Filt Rate > 60.0 mL/min (>60); Globulin 2.9 g/dL (1.7-4.1); Glucose 259 mg/dL (80-110); HEMOLYSIS < 15 (0-50); Potassium 4.2 mmol/L (3.4-5.1); Sodium 136 mmol/L (137-145); Total Protein 7.1 g/dL (6.3-8.2)
[2020-03-21 11:56] LABS: Thyroid Stimulating Hormone 3.26 uIU/mL (0.47-4.68)
== END ==
PROVIDERS: PCP Family Medicine; Referring Provider Family Medicine; Visit Provider Family Medicine
DX: E11.9 Type 2 diabetes mellitus without complications (principal)
CPT/HCPCS: 36415; 80053; 83036; 84443

== ENCOUNTER → 2020-04-30 13:03 | Outpatient (CLI) | payer MEDICARE, BC, SELFPAY ==
--- NOTE | 2020-04-30 13:04 | DI.CT.S_ITS ---
PROCEDURE: CT CERVICAL SPINE WO CON INDICATIONS: pain and swelling of right proximal clavical TECHNIQUE: Noncontrast 3 mm thick sections acquired from the skull base to the T4 level. Sagittal and coronal reformats were then constructed. For radiation dose reduction, the following was used: automated exposure control, adjustment of mA and/or kV according to patient size. COMPARISON: None. FINDINGS: Image quality: Excellent. Bones: No fractures or dislocations. There is mild, approximately 3 mm of C2-C3, 2 mm of C6-C7 and 2 mm of C7-T1 degenerative anterolisthesis. Visualized superior ribs are intact. Postsurgical changes compatible with C4-C6 ACDF are noted. The orthopedic hardware is intact. No lucencies are identified the bone hardware interface. Spine degenerative disc disease and facet arthropathy. No significant central canal narrowing. Severe bilateral C3-C4, C4-C5 and C6-C7 neural foraminal narrowing. Severe left C5-C6 neural foraminal narrowing. Mild osteophytic degenerative changes are noted in the sternoclavicular joints bilaterally. No definite sternoclavicular joint effusions identified. No osseous erosive changes at the sternoclavicular joints. There is widening of the right acromioclavicular joint which could be due to prior acromioplasty; please correlate with surgical history. Soft tissues: Prevertebral soft tissues are normal in thickness. No paravertebral hematomas. No apical pneumothoraces. No soft tissue inflammation or fluid collections noted adjacent to the sternoclavicular joints. IMPRESSION: No abnormal mass, joint effusion or osseous erosive changes involving the right sternoclavicular joint. Dictated by: Evie Man MD, PhD on 04/30/2020 at 15:49 Approved by: Evie Man MD, PhD on 04/30/2020 at 15:58
--- NOTE | 2020-04-30 13:04 | DI.RAD.S_ITS ---
PROCEDURE: FL BARIUM SWALLOW INDICATIONS: swelling and fullness right clavical COMPARISON: None. FINDINGS: Function: There is decreased esophageal peristalsis. Delayed esophageal clearance No elicited gastroesophageal reflux. There is normal transit of a calibrated barium tablet through the esophagus into the stomach. Morphology: Air-contrast images are suboptimal secondary to under distention however grossly unremarkable. Single contrast views show no esophageal strictures, extrinsic mass effects, or diverticula. Limited images of the stomach demonstrate normal appearance. IMPRESSION: Esophageal dysmotility Dictated by: Selvin King M.D. on 04/30/2020 at 15:45 Approved by: Selvin King M.D. on 04/30/2020 at 15:47
== END ==
PROVIDERS: PCP Family Medicine; Referring Provider Family Medicine; Visit Provider Family Medicine
DX: M54.2 Cervicalgia (principal); K22.4 Dyskinesia of esophagus; R22.2 Localized swelling, mass and lump, trunk; M89.8X1 Other specified disorders of bone, shoulder
CPT/HCPCS: 72125; 74220

== ENCOUNTER → 2020-05-05 10:59 | Outpatient (CLI) | payer MEDICARE, BC, SELFPAY ==
[2020-05-05 12:36] LABS: Hemoglobin A1C% w Est Avg Glu 9.3 % (4.0-6.0)
[2020-05-05 12:59] LABS: Alanine Aminotransferase 32 IU/L (<50); Albumin 4.2 g/dL (3.5-5.0); Albumin Globulin Ratio 1.8 (1.0-2.8); Alkaline Phosphatase 123 U/L (38-126); Aspartate Aminotransferase 32 IU/L (17-59); BUN Creatinine Ratio 19.4 (6-22); Bilirubin Total 0.7 mg/dL (0.2-1.3); Blood Urea Nitrogen 14 mg/dL (9-20); Calcium 9.6 mg/dL (8.4-10.2); Carbon Dioxide 27 mmol/L (22-32); Chloride 101 mmol/L (98-107); Estimated Glomerular Filt Rate > 60.0 mL/min (>60); Globulin 2.4 g/dL (1.7-4.1); Glucose 379 mg/dL (80-110); HEMOLYSIS < 15 (0-50); Potassium 4.2 mmol/L (3.4-5.1); Sodium 135 mmol/L (137-145); Total Protein 6.6 g/dL (6.3-8.2)
== END ==
PROVIDERS: PCP Family Medicine; Referring Provider Family Medicine; Visit Provider Family Medicine
DX: E11.9 Type 2 diabetes mellitus without complications (principal); I10 Essential (primary) hypertension
CPT/HCPCS: 36415; 80053; 83036

== ENCOUNTER → 2020-06-26 11:18 | Outpatient (CLI) | payer MEDICARE, BC, SELFPAY ==
[2020-06-26 11:48] LABS: Hematocrit 47.6 % (41-53); Hemoglobin 16.8 g/dL (13.5-17.5)
[2020-06-26 12:18] LABS: BUN Creatinine Ratio 18.5 (6-22); Blood Urea Nitrogen 15 mg/dL (9-20); Calcium 9.8 mg/dL (8.4-10.2); Carbon Dioxide 22 mmol/L (22-32); Chloride 102 mmol/L (98-107); Cholesterol 175 mg/dL (140-199); Estimated Glomerular Filt Rate > 60.0 mL/min (>60); Glucose 316 mg/dL (80-110); HDL Cholesterol 58 mg/dL (40-60); HEMOLYSIS < 15 (0-50); LDL Cholesterol Calculated 86 mg/dL (<100); Potassium 4.4 mmol/L (3.4-5.1); Sodium 133 mmol/L (137-145); Triglycerides 156 mg/dL (35-150)
== END ==
PROVIDERS: PCP Family Medicine; Referring Provider Family Medicine; Visit Provider Family Medicine
DX: E78.5 Hyperlipidemia, unspecified (principal); E11.9 Type 2 diabetes mellitus without complications
CPT/HCPCS: 36415; 80048; 80061; 85014; 85018

== ENCOUNTER → 2020-08-19 11:59 | Outpatient (CLI) | payer MEDICARE, BC, SELFPAY ==
[2020-08-19 15:36] LABS: Hemoglobin A1C% w Est Avg Glu 10.5 % (4.0-6.0)
== END ==
PROVIDERS: Family Provider Family Medicine; PCP Family Medicine; Referring Provider Family Medicine; Visit Provider Family Medicine
DX: E11.9 Type 2 diabetes mellitus without complications (principal); Z12.5 Encounter for screening for malignant neoplasm of prostate
CPT/HCPCS: 36415; 83036; G0103

== ENCOUNTER → 2020-10-20 14:38 | Outpatient (CLI) | payer MEDICARE, BC, SELFPAY ==
[2020-10-20 15:30] LABS: BUN Creatinine Ratio 22.4 (6-22); Blood Urea Nitrogen 15 mg/dL (9-20); Calcium 9.8 mg/dL (8.4-10.2); Carbon Dioxide 28 mmol/L (22-32); Chloride 102 mmol/L (98-107); Estimated Glomerular Filt Rate > 60.0 mL/min (>60); Glucose 408 mg/dL (80-110); HEMOLYSIS < 15 (0-50); Potassium 4.2 mmol/L (3.4-5.1); Sodium 135 mmol/L (137-145)
[2020-10-20 16:01] LABS: TSH w/ Reflex to FT4 6.52 uIU/mL (0.47-4.68)
[2020-10-20 16:25] LABS: Free T4, Direct Thyroxine 0.82 ng/dL (0.78-2.19)
== END ==
PROVIDERS: Family Provider Family Medicine; PCP Internal Medicine; Referring Provider Internal Medicine; Visit Provider Internal Medicine
DX: E11.65 Type 2 diabetes mellitus with hyperglycemia (principal); I10 Essential (primary) hypertension; I48.0 Paroxysmal atrial fibrillation
CPT/HCPCS: 36415; 80048; 83036; 84439; 84443

== ENCOUNTER → 2020-12-23 14:48 | Outpatient (CLI) | payer MEDICARE, BC, SELFPAY ==
[2020-12-23 15:59] LABS: Hemoglobin A1C% w Est Avg Glu 10.2 % (4.0-6.0)
[2020-12-23 16:21] LABS: BUN Creatinine Ratio 22.8 (6-22); Blood Urea Nitrogen 18 mg/dL (9-20); Calcium 9.3 mg/dL (8.4-10.2); Carbon Dioxide 26 mmol/L (22-32); Chloride 100 mmol/L (98-107); Estimated Glomerular Filt Rate > 60.0 mL/min (>60); Glucose 442 mg/dL (80-110); HEMOLYSIS < 15 (0-50); Sodium 134 mmol/L (137-145)
== END ==
PROVIDERS: Family Provider Internal Medicine; PCP Internal Medicine; Referring Provider Internal Medicine; Visit Provider Internal Medicine
DX: E11.65 Type 2 diabetes mellitus with hyperglycemia (principal); I48.0 Paroxysmal atrial fibrillation
CPT/HCPCS: 36415; 80048; 83036

== ENCOUNTER → 2020-12-31 14:43 | Outpatient (CLI) | payer MEDICARE, BC, SELFPAY ==
[2020-12-31 15:14] LABS: COVID19 -Nasal RAPID Negative (Negative)
== END ==
PROVIDERS: Family Provider Internal Medicine; PCP Internal Medicine; Visit Provider Physician Assistant
DX: J34.89 Other specified disorders of nose and nasal sinuses (principal); R05 Cough; Z20.822 Contact with and (suspected) exposure to COVID-19
CPT/HCPCS: 87635

== ENCOUNTER → 2021-01-15 09:26 | Outpatient (CLI) | payer MEDICARE, BC, SELFPAY ==
--- NOTE | 2021-02-18 09:46 | P.HOLT.S_ITS ---
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 Grade Teacher Report Referral & Results Date Patient Seen: 01/15/21 Requesting provider: Tripp Spears Indication: Atrial fibrillation Duration of monitoring (days): 14 Diary information: There were 2 patient triggered events, that were both associated with (within 45 seconds) sinus rhythm and PVCs Data: Minimum heart rate identified was 40 beats per minute at 05:12 on 01/27/2021 Maximum sinus heart rate was 127 beats per minute at 17:23 on 01/24/2021 Maximum overall heart rate was 218 beats per minute at 10:43 on 01/20/2021 during a 5 beat run of SVT Less than 1% of identified beats were supraventricular ectopic in origin which would classify them as rare Approximately 8.3% of identified beats were ventricular ectopic in origin which would classify them as frequent. This includes about 1% couplets which would suggest ventricular couplets are occasional. In addition there were runs of ventricular bigeminy and trigeminy the longest of which was a 2 minutes 12nd run of ventricular trigeminy There were 2 runs of nonsustained monomorphic ventricular tachycardia with the longest lasting 6 beats There were 64 runs of SVT the longest lasting 23.5 seconds at a rate of 152 beats per minute There was atrial fibrillation also identified during this study that was approximately 1% of study time. 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 Clinical correlation suggested
== END ==
PROVIDERS: Family Provider Internal Medicine; PCP Internal Medicine; Referring Provider Internal Medicine; Visit Provider Internal Medicine
DX: I48.91 Unspecified atrial fibrillation (principal)
CPT/HCPCS: 93246; 93248; 93798

== ENCOUNTER → 2021-01-29 13:49 | Outpatient (CLI) | payer MEDICARE, BC, SELFPAY ==
--- NOTE | 2021-01-29 15:14 | DIET.PN ---
Diabetes Intake: Initial Assessment Assess: Mr. Moreland is a 70 yom referred for newly diagnosed type 2 diabetes. He endorses unhealthy eating habits, especially since the loss of his 1 year ago. Since diagnosis, he is eating more fruits/veggies from his garden and nuts, seeds, and grains. 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 He does not have a glucometer, but requests one. Labs: Per pt report: A1c: 10.2 Meds: glipizide BID Diet: per 24 hr recall: B: raisin bran; smoothies w/ seeds, nuts, fruit D: veggies from garden, some protein Wt: 210lb Ht: 71in BMI: 29.3 BP: DX: Altered nutrition related laboratory values related to impaired glucose metabolism, lack of previous exposure to nutrition information as evidenced by pt report, diagnosis of diabetes, previous diet high in refined carbohydrates. Intervention: 1. Completed intake assessment. Discussed barriers to care. 2. Discussed pathophysiology of diabetes. Reviewed A1c and its correlation to blood glucose numbers. Discussed recommended BG ranges. 3. Discussed importance of self-monitoring, how often, and when to check. 4. Reviewed hyper/hypoglycemia and treatment. 5. Reviewed safe disposal of equipment (strip/lancets/insulin needles). 6. Created SMART goals for pt self-care and success. 7. Discussed program curriculum outline and class needs based on individual goals. SMART Goals: 1. Pt goal to lower A1c by monitoring blood glucose 1-2 x/day, learn carbohydrate counting, and daily exercise. Monitor/Evaluate: Pt will attend full DSME program. Basic Nutrition class scheduled for Feb 03.
== END ==
PROVIDERS: Family Provider Internal Medicine; PCP Internal Medicine; Referring Provider Internal Medicine; Visit Provider Internal Medicine
DX: E11.9 Type 2 diabetes mellitus without complications (principal); Z79.84 Long term (current) use of oral hypoglycemic drugs
CPT/HCPCS: G0108

== ENCOUNTER 2021-02-03 11:15 | Outpatient (RCR) | payer MEDICARE, BC, SELFPAY ==
--- NOTE | 2021-01-01 16:57 | PT.OIE ---
Current Diagnoses Primary osteoarthritis, left shoulder (01/01/21) Spinal stenosis, cervical region (01/01/21) Incomplete rotator cuff tear or rupture of left shoulder, not specified as traumatic (01/01/21) Past Medical History (Last Reviewed 10/20/20 @ 14:29 by Tripp Spears MD) Atrial fibrillation (03/12/14) Chronic cholecystitis Esophageal dysmotility Essential hypertension (11/16/17) Hyperlipidemia Hypothyroidism Paroxysmal atrial fibrillation 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/17) Type 2 diabetes mellitus without complication (11/16/17) Unspecified asthma (06/08/11) Past Surgical History (Last Reviewed 10/20/20 @ 14:29 by Tripp Spears MD) History of carpal tunnel repair History of knee replacement Status post cholecystectomy Status post hernia repair Visit Care Team Role Provider Type Tripp Spears MD Family Provider Physician Primary Care Provider Specialty: Internal Medicine Address: [address] [place] [address], [id number] Email: [email or web address] Gavino Stratton MD Attending Provider Physician Referring Provider Specialty: Orthopedic Surgery Address: [address] [place] [address], [id number] Email: [email or web address] Physical Therapy Initial Evaluation PT-OP-A Visit Information Start: 12/25/20 19:24 Freq: Status: Active Protocol: Document 01/01/21 13:42 LRN (Rec: 01/01/21 14:33 LRN [id number]) Out-Patient Physical Therapy Visit Information Visit Information Visit Type Initial Evaluation Visit Start Time 13:42 Visit Stop Time 14:32 Total Visit Minutes 50 Visit Number 1 Evaluation Information Evaluation Date 01/01/21 Precautions Precautions Paroxysmal A. Fib - uncontrolled, Type II Diabetes, Cervical anterior fusion of C3 , C4, C5, C6 - 8 yrs ago, Essential HTN, Hypothyroidism, Hernia repair. PT-OP-B Current Condition Start: 12/25/20 19:24 Freq: Status: Active Protocol: Document 01/01/21 13:42 LRN (Rec: 01/01/21 14:33 LRN [id number]) Current Condition History of Current Condition Onset Date 8 yrs ago after cervical fusion Current Complaints Unable to lower L arm after lifting due to L shoulder pain , & neck pain. History of Current Condition Posterior neck and L shoulder pain onset after anterior cervical fusion C3-C6. Can sit in recliner chair, without neck pain, if pillow placed behind his head to prevent neck from tiring. States he can move his head around for exercise. He states his L shoulder pain is worse than the neck pain. He can only lie down on L side if he doesn 't lie entirely on his side, and he reports shooting pain in the shoulder with reaching upward, and he requires support of opposite arm to lower the L arm, otherwise he gets sharp shocking pain in the shoulder joint. He denies locking or catch or locking of the shoulder. Neck pain is rated 3/10 and at worst 5/ 10, L shoulder pain is 5/10. Prior Treatments and Tests Record review indicates report of partial L shoulder rotator cuff tear. Future Testing and Treatments Planned No scheduled follow up visit with referring physician, Dr. Hoang. Treatment Goals Patient/Caregiver Goals Pt goal is: Learn what to do to prevent neck pain from geting worse. L shoulder goal to use the arm with less pain. Prior Functional Status Baseline Function- ADL's Independent Baseline Function- Mobility Independent Baseline Function- Recreation/Hobbies Able to hold and use chain saw for 3-6 hours. Baseline Function- Other Can only lift arm to shoulder height after neck surgery. No pain with lowering L arm holding a towel before surgery , not able to do after the surgery. Current Functional Impairments (Reported) Functional Limitations- ADL's Now have shocking pain when lowering the L arm after reaching upward. Intermittent neck pain. Personal Factors Other Personal Factors That May Effect Pt lives alone, recently Therapy/Recovery . Significant PMH (see Precautions above) PT-OP-C Subjective Start: 12/25/20 19:24 Freq: Status: Active Protocol: Document 01/01/21 13:42 LRN (Rec: 01/01/21 14:33 LRN [id number]) Patient Questionnaires Neck Disability Index NDI Score 11 Neck Disability Index Impairment 20 to 39% Impaired (Score 10- 19) Quick Dash- Upper Extremity Quick Dash UE Score 36.36 Quick Dash UE Impairment 20 to 39% Impaired (Score 20- 39) OP-PT Pain Assessment Pain Assessment Grid Paper Pain Assessment Grid Completed Yes Location Neck Pain Location Details Suboccipital bilaterally Intensity 5 Scale Used Numeric (0 - 10) Description Throbbing Frequency Intermittent Pain Aggravating Factors Exercise,Bending Other Pain Aggravating Factors Bouncing Other Pain Alleviating Factors Aleve L shoulder Pain Location Details L Posterior acromion to anterior shoulder (Biceps tendon) Intensity 5 Scale Used Numeric (0 - 10) Description Sharp,Stabbing Description- Other Reaching up causes sharp pain on descent, at rest constant dull ache. Frequency Intermittent Pain Duration Sometimes at rest Pain Aggravating Factors Position Other Pain Aggravating Factors Lying on it is worst, constant dull pain. Pain Alleviating Factors Heat Other Pain Alleviating Factors Aleve when aches, occasional heat at neck PT-OP-E Functional Tests Start: 12/25/20 19:24 Freq: Status: Active Protocol: Document 01/01/21 13:42 LRN (Rec: 01/01/21 14:33 LRN [id number]) Functional Tests Apley's Scratch Test Action 1- Left Anterior R shoulder (pec minor ) Action 1- Right Behind the shoulder/neck Action 2- Left T2 Action 2- Right T2 Action 3- Left T6 Action 3- Right L2 PT-OP-H Neuro Start: 12/25/20 19:24 Freq: Status: Active Protocol: Document 01/01/21 13:42 LRN (Rec: 01/01/21 14:33 LRN [id number]) Sensation Evaluation Gross Sensation Gross Sensation WNL PT-OP-J Posture/Palpation/Skin Start: 12/25/20 19:24 Freq: Status: Active Protocol: Document 01/01/21 13:42 LRN (Rec: 01/01/21 14:33 LRN [id number]) Posture Evaluation Position Standing Head/C-Spine Posture Forward Head T-Spine Posture Flattened Shoulder Posture (R) Rounded,(R) Forward Comments Posture Comments R UT muscle tightness. Palpation Assessment Location L Posterior Deltoid & Supraspinatus Palpation Location Posterior Deltoid & Supraspinatus Palpation Details Muscle Atrophy Neck Palpation Location Subacromial, Upper trapezius Palpation Findings Muscle Guarding L shoulder Palpation Location Posterior aspect of Acrominon, subacromial, and anterior shoulder Palpation Findings Tenderness PT-OP-K Range of Motion Start: 12/25/20 19:24 Freq: Status: Active Protocol: Document 01/01/21 13:42 LRN (Rec: 01/01/21 14:33 LRN [id number]) Cervical Spine Range of Motion Cervical Spine Active Degrees Testing Position Sitting Flexion 43 Extension 30 Rotation Left 40 Rotation Right 40 ROM Limitations Pain Comments Posterior neck pain with extension Shoulder Goniometric Range of Motion Shoulder Right Active Shoulder ROM WFL Yes Testing Position Sitting Flexion 150 Extension 55 Abduction 145 Comments Pain with lowering arm Left Active Shoulder ROM WFL No Testing Position Sitting Flexion 155 Extension 55 Abduction 143 Comments Pain with lowering of arm Elbow/Forearm Range of Motion Elbow/Forearm Right Active ROM Testing Position Sitting Comments WNL Left Active ROM Testing Position Sitting Comments WNL PT-OP-L Special Tests Start: 12/25/20 19:24 Freq: Status: Active Protocol: Document 01/01/21 13:42 LRN (Rec: 01/01/21 14:33 LRN [id number]) Special Tests Shoulder Special Tests Drop Arm Rotator Cuff Test Results Positive bilaterally Comments Rotator cuff dysfunction Belly Press Test Results Negative bilaterally PT-OP-M Strength Start: 12/25/20 19:24 Freq: Status: Active Protocol: Document 01/01/21 13:42 LRN (Rec: 01/01/21 14:33 LRN [id number]) Cervical Spine Strength Cervical Spine Manual Muscle Testing Testing Position Sitting Shoulder Strength Shoulder Manual Muscle Testing Right Flexion 3+ Fair+ Abduction (C5) 3 Fair External Rotation 4+ Good+ Internal Rotation 5 Normal Left Flexion 3- Fair- Abduction (C5) 3- Fair- External Rotation 4- Good- Internal Rotation 5 Normal Elbow/Forearm Strength Elbow and Forearm Manual Muscle Testing Right Flexion (C6) 5 Normal Extension (C7) 5 Normal Left Flexion (C6) 5 Normal Extension (C7) 4- Good- PT-OP-Q Treatments Start: 12/25/20 19:24 Freq: Status: Active Protocol: Document 01/01/21 13:42 LRN (Rec: 01/01/21 14:33 LRN [id number]) Self-Care/Home Management Treatment Education Patient Education Home Exercise Program Other Education Discussed and reviewed results of evaluation, goals, and plan of care. PT-OP-T Assessment and Plan Start: 12/25/20 19:24 Freq: Status: Active Protocol: Document 01/01/21 13:42 LRN (Rec: 01/01/21 14:33 LRN [id number]) Physical Therapy Assessment Rehab Potential Rehabilitation Potential Excellent Evaluation Complexity Number of Personal Factors/Comorbidities 3 or More Number of Body Systems Impaired 4 or More Clinical Presentation at Evaluation Evolving Impairments Impairments Activity Tolerance,Pain,ROM, Strength Goals Three Impairment Neck pain Short Term Goal (STG) Pt will be educated in self care neck stabilization and AROM exercises. Senior Sales Operations Analyst Goal (LTG) Decrease onset of neck pain and decrease pain to 3/10. Two Impairment L shoulder pain. Short Term Goal (STG) Pt will be independent on home rotator cuff and shoulder stabilizing exercises. Senior Sales Operations Analyst Goal (LTG) Pt will be able to use the L arm with less shoulder pain on lowering the arm from shoulder height. One Impairment Lacks self care HEP Residential Goal (LTG) Pt will be independent in a self care HEP of neck and shoulder exercises to prevent pain from worsening. Assessment Summary Assessment Pt presents with neck pain due to decreased neck stability due to weakness and limited cervical neck extension due to pain in the suboccipital region. There is no recent imaging reports; therefore it is unknown if he has any bony disfunction associated to his pain. He does show soft tissue dysfunction with muscle guarding and tightness of his cervical region and upper trapezius. The pt's L and R shoulder demonstrates a +Drop Arm Test; therefore indicating rotator cuff dysfunction. Pt 's medical history indicates he has a L rotator cuff tear. The pt will benefit from skilled physical therapy for education in a self care program of neck stabilization and ROM ex's to decrease neck pain, and for rotator cuff strengthening (conc, ecc) to decrease pain with lowering of the arms. Pt's R arm also displays similar symptoms of dysfunction that the L arm exhibits. Physical Therapy Plan Frequency and Duration Frequency of Treatment 2x/Week Plan of Care Start Date 01/01/21 Plan of Care End Date 03/02/21 Therapeutic Interventions Therapeutic Interventions Home Exercise Program,Joint Mobilizations,Manual Therapy, Patient/Caregiver Education, Self-Care/Home Management,Soft Tissue Mobilization,Taping, Therapeutic Exercises Modalities Cold Pack/Ice Massage,Electric Stimulation,Hot Packs, Ultrasound Other Therapeutic Interventions Neck - only MH/Ice. EStim & US only to the shoulders. Next Visit Focus/Plan Next Note Type Treatment Note Next Visit Plan Initiate Cervical stabilization and rotator cuff and shoulder ext strengthening exercises, and issue HEP. Use of US to subacromial region and STM to neck/shoulders. 2-[address] on HEP, then weekly to progress his program. End ice if needed.
--- NOTE | 2021-01-01 16:58 | PT.OPPOC ---
Physical, Occupational & Speech Therapy At [facility] Current Diagnoses Primary osteoarthritis, left shoulder (01/01/21) Spinal stenosis, cervical region (01/01/21) Incomplete rotator cuff tear or rupture of left shoulder, not specified as traumatic (01/01/21) Visit Care Team Role Provider Type Tripp Spears MD Family Provider Physician Primary Care Provider Specialty: Internal Medicine Address: [address] [place] [address], [address], [place], [address] Email: [email or web address] Gavino Stratton MD Attending Provider Physician Referring Provider Specialty: Orthopedic Surgery Address: [address] [place] [address], [id number] Email: [email or web address] Plan Of Care PT-OP-T Assessment and Plan Start: 12/25/20 19:24 Freq: Status: Active Protocol: Document 01/01/21 13:42 LRN (Rec: 01/01/21 14:33 LRN [id number]) Physical Therapy Assessment Rehab Potential Rehabilitation Potential Excellent Evaluation Complexity Number of Personal Factors/Comorbidities 3 or More Number of Body Systems Impaired 4 or More Clinical Presentation at Evaluation Evolving Impairments Impairments Activity Tolerance,Pain,ROM, Strength Goals Three Impairment Neck pain Short Term Goal (STG) Pt will be educated in self care neck stabilization and AROM exercises. Mcc Goal (LTG) Decrease onset of neck pain and decrease pain to 3/10. Two Impairment L shoulder pain. Short Term Goal (STG) Pt will be independent on home rotator cuff and shoulder stabilizing exercises. Mcc Goal (LTG) Pt will be able to use the L arm with less shoulder pain on lowering the arm from shoulder height. One Impairment Lacks self care HEP Mcc Goal (LTG) Pt will be independent in a self care HEP of neck and shoulder exercises to prevent pain from worsening. Assessment Summary Assessment Pt presents with neck pain due to decreased neck stability due to weakness and limited cervical neck extension due to pain in the suboccipital region. There is no recent imaging reports; therefore it is unknown if he has any bony disfunction associated to his pain. He does show soft tissue dysfunction with muscle guarding and tightness of his cervical region and upper trapezius. The pt's L and R shoulder demonstrates a +Drop Arm Test; therefore indicating rotator cuff dysfunction. Pt 's medical history indicates he has a L rotator cuff tear. The pt will benefit from skilled physical therapy for education in a self care program of neck stabilization and ROM ex's to decrease neck pain, and for rotator cuff strengthening (conc, ecc) to decrease pain with lowering of the arms. Pt's R arm also displays similar symptoms of dysfunction that the L arm exhibits. Physical Therapy Plan Frequency and Duration Frequency of Treatment 2x/Week Plan of Care Start Date 01/01/21 Plan of Care End Date 03/02/21 Therapeutic Interventions Therapeutic Interventions Home Exercise Program,Joint Mobilizations,Manual Therapy, Patient/Caregiver Education, Self-Care/Home Management,Soft Tissue Mobilization,Taping, Therapeutic Exercises Modalities Cold Pack/Ice Massage,Electric Stimulation,Hot Packs, Ultrasound Other Therapeutic Interventions Neck - only MH/Ice. EStim & US only to the shoulders. Next Visit Focus/Plan Next Note Type Treatment Note Next Visit Plan Initiate Cervical stabilization and rotator cuff and shoulder ext strengthening exercises, and issue HEP. Use of US to subacromial region and STM to neck/shoulders. 2-[address] on HEP, then weekly to progress his program. End ice if needed. Plan of Care Dates Plan of Care Start Date 01/01/21 Plan of Care End Date 03/02/21 Electronically Signed by: Darby Lewis, PT 01/02/21 3517 Please Sign and Return: I have reviewed this Plan of Care and certify that the skilled therapy services above are required to meet the patient?s needs. Physician Signature Date Printed Name and Credentials Clinical Instructor Signature Printed Name and Credentials
--- NOTE | 2021-01-02 15:30 | PT.OPPOC ---
Physical, Occupational & Speech Therapy At [facility] Current Diagnoses Primary osteoarthritis, left shoulder (01/06/21) Spinal stenosis, cervical region (01/06/21) Incomplete rotator cuff tear or rupture of left shoulder, not specified as traumatic (01/06/21) Visit Care Team Role Provider Type Tripp Spears MD Family Provider Physician Primary Care Provider Specialty: Internal Medicine Address: [address] [place] [address], [address], [address] Email: [email or web address] Gavino Stratton MD Attending Provider Physician Referring Provider Specialty: Orthopedic Surgery Address: [address] [place] [address], [id number] Email: [email or web address] Plan Of Care PT-OP-T Assessment and Plan Start: 12/25/20 19:24 Freq: Status: Active Protocol: Document 01/01/21 13:42 LRN (Rec: 01/01/21 14:33 LRN [id number]) Physical Therapy Assessment Rehab Potential Rehabilitation Potential Excellent Evaluation Complexity Number of Personal Factors/Comorbidities 3 or More Number of Body Systems Impaired 4 or More Clinical Presentation at Evaluation Evolving Impairments Impairments Activity Tolerance,Pain,ROM, Strength Goals Three Impairment Neck pain Short Term Goal (STG) Pt will be educated in self care neck stabilization and AROM exercises. STG Duration 01/31/21 Buncher Machine Goal (LTG) Decrease onset of neck pain and decrease pain to 3/10. LTG Duration 03/02/21 Two Impairment L shoulder pain. Short Term Goal (STG) Pt will be independent on home rotator cuff and shoulder stabilizing exercises. STG Duration 01/31/21 Buncher Machine Goal (LTG) Pt will be able to use the L arm with less shoulder pain on lowering the arm from shoulder height. LTG Duration 03/02/21 One Impairment Lacks self care HEP Buncher Machine Goal (LTG) Pt will be independent in a self care HEP of neck and shoulder exercises to prevent pain from worsening. LTG Duration 03/02/21 Assessment Summary Assessment Pt presents with neck pain due to decreased neck stability due to weakness and limited cervical neck extension due to pain in the suboccipital region. There is no recent imaging reports; therefore it is unknown if he has any bony disfunction associated to his pain. He does show soft tissue dysfunction with muscle guarding and tightness of his cervical region and upper trapezius. The pt's L and R shoulder demonstrates a +Drop Arm Test; therefore indicating rotator cuff dysfunction. Pt 's medical history indicates he has a L rotator cuff tear. The pt will benefit from skilled physical therapy for education in a self care program of neck stabilization and ROM ex's to decrease neck pain, and for rotator cuff strengthening (conc, ecc) to decrease pain with lowering of the arms. Pt's R arm also displays similar symptoms of dysfunction that the L arm exhibits. Physical Therapy Plan Frequency and Duration Frequency of Treatment 2x/Week Plan of Care Start Date 01/01/21 Plan of Care End Date 03/02/21 Therapeutic Interventions Therapeutic Interventions Home Exercise Program,Joint Mobilizations,Manual Therapy, Patient/Caregiver Education, Self-Care/Home Management,Soft Tissue Mobilization,Taping, Therapeutic Exercises Modalities Cold Pack/Ice Massage,Electric Stimulation,Hot Packs, Ultrasound Other Therapeutic Interventions Neck - only MH/Ice. EStim & US only to the shoulders. Next Visit Focus/Plan Next Note Type Treatment Note Next Visit Plan Initiate Cervical stabilization and rotator cuff and shoulder ext strengthening exercises, and issue HEP. Use of US to subacromial region and STM to neck/shoulders. 2-[address] on HEP, then weekly to progress his program. End ice if needed. Plan of Care Dates Plan of Care Start Date 01/01/21 Plan of Care End Date 03/02/21 Electronically Signed by: Darby Lewis, PT 01/06/21 [id number] Please Sign and Return: I have reviewed this Plan of Care and certify that the skilled therapy services above are required to meet the patient?s needs. Physician Signature Date Printed Name and Credentials Clinical Instructor Signature Printed Name and Credentials
--- NOTE | 2021-01-02 15:30 | PT.OIE ---
Current Diagnoses Primary osteoarthritis, left shoulder (01/06/21) Spinal stenosis, cervical region (01/06/21) Incomplete rotator cuff tear or rupture of left shoulder, not specified as traumatic (01/06/21) Past Medical History (Last Reviewed 10/20/20 @ 14:29 by Tripp Spears MD) Atrial fibrillation (03/12/14) Chronic cholecystitis Esophageal dysmotility Essential hypertension (11/16/17) Hyperlipidemia Hypothyroidism Paroxysmal atrial fibrillation 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/17) Type 2 diabetes mellitus without complication (11/16/17) Unspecified asthma (06/08/11) Past Surgical History (Last Reviewed 10/20/20 @ 14:29 by Tripp Spears MD) History of carpal tunnel repair History of knee replacement Status post cholecystectomy Status post hernia repair Visit Care Team Role Provider Type Tripp Spears MD Family Provider Physician Primary Care Provider Specialty: Internal Medicine Address: [address] [place] [address], [address] Email: [email or web address] Gavino Stratton MD Attending Provider Physician Referring Provider Specialty: Orthopedic Surgery Address: [address] [place] [address], [address] Email: [email or web address] Physical Therapy Initial Evaluation PT-OP-A Visit Information Start: 12/25/20 19:24 Freq: Status: Active Protocol: Document 01/01/21 13:42 LRN (Rec: 01/01/21 14:33 LRN [id number]) Out-Patient Physical Therapy Visit Information Visit Information Visit Type Initial Evaluation Visit Start Time 13:42 Visit Stop Time 14:32 Total Visit Minutes 50 Visit Number 1 Evaluation Information Evaluation Date 01/01/21 Precautions Precautions Paroxysmal A. Fib - uncontrolled, Type II Diabetes, Cervical anterior fusion of C3 , C4, C5, C6 - 8 yrs ago, Essential HTN, Hypothyroidism, Hernia repair. PT-OP-B Current Condition Start: 12/25/20 19:24 Freq: Status: Active Protocol: Document 01/01/21 13:42 LRN (Rec: 01/01/21 14:33 LRN [id number]) Current Condition History of Current Condition Onset Date 8 yrs ago after cervical fusion Current Complaints Unable to lower L arm after lifting due to L shoulder pain , & neck pain. History of Current Condition Posterior neck and L shoulder pain onset after anterior cervical fusion C3-C6. Can sit in recliner chair, without neck pain, if pillow placed behind his head to prevent neck from tiring. States he can move his head around for exercise. He states his L shoulder pain is worse than the neck pain. He can only lie down on L side if he doesn 't lie entirely on his side, and he reports shooting pain in the shoulder with reaching upward, and he requires support of opposite arm to lower the L arm, otherwise he gets sharp shocking pain in the shoulder joint. He denies locking or catch or locking of the shoulder. Neck pain is rated 3/10 and at worst 5/ 10, L shoulder pain is 5/10. Prior Treatments and Tests Record review indicates report of partial L shoulder rotator cuff tear. Future Testing and Treatments Planned No scheduled follow up visit with referring physician, Dr. Hoang. Treatment Goals Patient/Caregiver Goals Pt goal is: Learn what to do to prevent neck pain from geting worse. L shoulder goal to use the arm with less pain. Prior Functional Status Baseline Function- ADL's Independent Baseline Function- Mobility Independent Baseline Function- Recreation/Hobbies Able to hold and use chain saw for 3-6 hours. Baseline Function- Other Can only lift arm to shoulder height after neck surgery. No pain with lowering L arm holding a towel before surgery , not able to do after the surgery. Current Functional Impairments (Reported) Functional Limitations- ADL's Now have shocking pain when lowering the L arm after reaching upward. Intermittent neck pain. Personal Factors Other Personal Factors That May Effect Pt lives alone, recently Therapy/Recovery . Significant PMH (see Precautions above) PT-OP-C Subjective Start: 12/25/20 19:24 Freq: Status: Active Protocol: Document 01/01/21 13:42 LRN (Rec: 01/01/21 14:33 LRN [id number]) Patient Questionnaires Neck Disability Index NDI Score 11 Neck Disability Index Impairment 20 to 39% Impaired (Score 10- 19) Quick Dash- Upper Extremity Quick Dash UE Score 36.36 Quick Dash UE Impairment 20 to 39% Impaired (Score 20- 39) OP-PT Pain Assessment Pain Assessment Grid Paper Pain Assessment Grid Completed Yes Location Neck Pain Location Details Suboccipital bilaterally Intensity 5 Scale Used Numeric (0 - 10) Description Throbbing Frequency Intermittent Pain Aggravating Factors Exercise,Bending Other Pain Aggravating Factors Bouncing Other Pain Alleviating Factors Aleve L shoulder Pain Location Details L Posterior acromion to anterior shoulder (Biceps tendon) Intensity 5 Scale Used Numeric (0 - 10) Description Sharp,Stabbing Description- Other Reaching up causes sharp pain on descent, at rest constant dull ache. Frequency Intermittent Pain Duration Sometimes at rest Pain Aggravating Factors Position Other Pain Aggravating Factors Lying on it is worst, constant dull pain. Pain Alleviating Factors Heat Other Pain Alleviating Factors Aleve when aches, occasional heat at neck PT-OP-E Functional Tests Start: 12/25/20 19:24 Freq: Status: Active Protocol: Document 01/01/21 13:42 LRN (Rec: 01/01/21 14:33 LRN [id number]) Functional Tests Apley's Scratch Test Action 1- Left Anterior R shoulder (pec minor ) Action 1- Right Behind the shoulder/neck Action 2- Left T2 Action 2- Right T2 Action 3- Left T6 Action 3- Right L2 PT-OP-H Neuro Start: 12/25/20 19:24 Freq: Status: Active Protocol: Document 01/01/21 13:42 LRN (Rec: 01/01/21 14:33 LRN [id number]) Sensation Evaluation Gross Sensation Gross Sensation WNL PT-OP-J Posture/Palpation/Skin Start: 12/25/20 19:24 Freq: Status: Active Protocol: Document 01/01/21 13:42 LRN (Rec: 01/01/21 14:33 LRN [id number]) Posture Evaluation Position Standing Head/C-Spine Posture Forward Head T-Spine Posture Flattened Shoulder Posture (R) Rounded,(R) Forward Comments Posture Comments R UT muscle tightness. Palpation Assessment Location L Posterior Deltoid & Supraspinatus Palpation Location Posterior Deltoid & Supraspinatus Palpation Details Muscle Atrophy Neck Palpation Location Subacromial, Upper trapezius Palpation Findings Muscle Guarding L shoulder Palpation Location Posterior aspect of Acrominon, subacromial, and anterior shoulder Palpation Findings Tenderness PT-OP-K Range of Motion Start: 12/25/20 19:24 Freq: Status: Active Protocol: Document 01/01/21 13:42 LRN (Rec: 01/01/21 14:33 LRN [id number]) Cervical Spine Range of Motion Cervical Spine Active Degrees Testing Position Sitting Flexion 43 Extension 30 Rotation Left 40 Rotation Right 40 ROM Limitations Pain Comments Posterior neck pain with extension Shoulder Goniometric Range of Motion Shoulder Right Active Shoulder ROM WFL Yes Testing Position Sitting Flexion 150 Extension 55 Abduction 145 Comments Pain with lowering arm Left Active Shoulder ROM WFL No Testing Position Sitting Flexion 155 Extension 55 Abduction 143 Comments Pain with lowering of arm Elbow/Forearm Range of Motion Elbow/Forearm Right Active ROM Testing Position Sitting Comments WNL Left Active ROM Testing Position Sitting Comments WNL PT-OP-L Special Tests Start: 12/25/20 19:24 Freq: Status: Active Protocol: Document 01/01/21 13:42 LRN (Rec: 01/01/21 14:33 LRN [id number]) Special Tests Shoulder Special Tests Drop Arm Rotator Cuff Test Results Positive bilaterally Comments Rotator cuff dysfunction Belly Press Test Results Negative bilaterally PT-OP-M Strength Start: 12/25/20 19:24 Freq: Status: Active Protocol: Document 01/01/21 13:42 LRN (Rec: 01/01/21 14:33 LRN [id number]) Cervical Spine Strength Cervical Spine Manual Muscle Testing Testing Position Sitting Shoulder Strength Shoulder Manual Muscle Testing Right Flexion 3+ Fair+ Abduction (C5) 3 Fair External Rotation 4+ Good+ Internal Rotation 5 Normal Left Flexion 3- Fair- Abduction (C5) 3- Fair- External Rotation 4- Good- Internal Rotation 5 Normal Elbow/Forearm Strength Elbow and Forearm Manual Muscle Testing Right Flexion (C6) 5 Normal Extension (C7) 5 Normal Left Flexion (C6) 5 Normal Extension (C7) 4- Good- PT-OP-Q Treatments Start: 12/25/20 19:24 Freq: Status: Active Protocol: Document 01/01/21 13:42 LRN (Rec: 01/01/21 14:33 LRN [id number]) Self-Care/Home Management Treatment Education Patient Education Home Exercise Program Other Education Discussed and reviewed results of evaluation, goals, and plan of care. PT-OP-T Assessment and Plan Start: 12/25/20 19:24 Freq: Status: Active Protocol: Document 01/01/21 13:42 LRN (Rec: 01/01/21 14:33 LRN [id number]) Physical Therapy Assessment Rehab Potential Rehabilitation Potential Excellent Evaluation Complexity Number of Personal Factors/Comorbidities 3 or More Number of Body Systems Impaired 4 or More Clinical Presentation at Evaluation Evolving Impairments Impairments Activity Tolerance,Pain,ROM, Strength Goals Three Impairment Neck pain Short Term Goal (STG) Pt will be educated in self care neck stabilization and AROM exercises. STG Duration 01/31/21 Assisted Goal (LTG) Decrease onset of neck pain and decrease pain to 3/10. LTG Duration 03/02/21 Two Impairment L shoulder pain. Short Term Goal (STG) Pt will be independent on home rotator cuff and shoulder stabilizing exercises. STG Duration 01/31/21 Glass Blowing Lathe Operator Goal (LTG) Pt will be able to use the L arm with less shoulder pain on lowering the arm from shoulder height. LTG Duration 03/02/21 One Impairment Lacks self care HEP Assisted Goal (LTG) Pt will be independent in a self care HEP of neck and shoulder exercises to prevent pain from worsening. LTG Duration 03/02/21 Assessment Summary Assessment Pt presents with neck pain due to decreased neck stability due to weakness and limited cervical neck extension due to pain in the suboccipital region. There is no recent imaging reports; therefore it is unknown if he has any bony disfunction associated to his pain. He does show soft tissue dysfunction with muscle guarding and tightness of his cervical region and upper trapezius. The pt's L and R shoulder demonstrates a +Drop Arm Test; therefore indicating rotator cuff dysfunction. Pt 's medical history indicates he has a L rotator cuff tear. The pt will benefit from skilled physical therapy for education in a self care program of neck stabilization and ROM ex's to decrease neck pain, and for rotator cuff strengthening (conc, ecc) to decrease pain with lowering of the arms. Pt's R arm also displays similar symptoms of dysfunction that the L arm exhibits. Physical Therapy Plan Frequency and Duration Frequency of Treatment 2x/Week Plan of Care Start Date 01/01/21 Plan of Care End Date 03/02/21 Therapeutic Interventions Therapeutic Interventions Home Exercise Program,Joint Mobilizations,Manual Therapy, Patient/Caregiver Education, Self-Care/Home Management,Soft Tissue Mobilization,Taping, Therapeutic Exercises Modalities Cold Pack/Ice Massage,Electric Stimulation,Hot Packs, Ultrasound Other Therapeutic Interventions Neck - only MH/Ice. EStim & US only to the shoulders. Next Visit Focus/Plan Next Note Type Treatment Note Next Visit Plan Initiate Cervical stabilization and rotator cuff and shoulder ext strengthening exercises, and issue HEP. Use of US to subacromial region and STM to neck/shoulders. 2-[address] on HEP, then weekly to progress his program. End ice if needed.
--- NOTE | 2021-01-06 12:27 | PT.OTN ---
Current Diagnoses Primary osteoarthritis, left shoulder (01/06/21) Spinal stenosis, cervical region (01/06/21) Incomplete rotator cuff tear or rupture of left shoulder, not specified as traumatic (01/06/21) Physical Therapy Treatment Note PT-OP-A Visit Information Start: 12/25/20 19:24 Freq: Status: Active Protocol: Document 01/06/21 11:20 LRN (Rec: 01/06/21 12:26 LRN [id number]) Out-Patient Physical Therapy Visit Information Visit Information Visit Type Treatment Note Visit Start Time 11:20 Visit Stop Time 12:15 Total Visit Minutes 55 Visit Number 2 Evaluation Information Evaluation Date 01/01/21 Precautions Precautions Paroxysmal A. Fib - uncontrolled, Type II Diabetes, Cervical anterior fusion of C3 , C4, C5, C6 - 8 yrs ago, Essential HTN, Hypothyroidism, Hernia repair. PT-OP-B Current Condition Start: 12/25/20 19:24 Freq: Status: Active Protocol: Document 01/01/21 13:42 LRN (Rec: 01/01/21 14:33 LRN [id number]) Current Condition History of Current Condition Onset Date 8 yrs ago after cervical fusion Current Complaints Unable to lower L arm after lifting due to L shoulder pain , & neck pain. History of Current Condition Posterior neck and L shoulder pain onset after anterior cervical fusion C3-C6. Can sit in recliner chair, without neck pain, if pillow placed behind his head to prevent neck from tiring. States he can move his head around for exercise. He states his L shoulder pain is worse than the neck pain. He can only lie down on L side if he doesn 't lie entirely on his side, and he reports shooting pain in the shoulder with reaching upward, and he requires support of opposite arm to lower the L arm, otherwise he gets sharp shocking pain in the shoulder joint. He denies locking or catch or locking of the shoulder. Neck pain is rated 3/10 and at worst 5/ 10, L shoulder pain is 5/10. Prior Treatments and Tests Record review indicates report of partial L shoulder rotator cuff tear. Future Testing and Treatments Planned No scheduled follow up visit with referring physician, Dr. Hoang. Treatment Goals Patient/Caregiver Goals Pt goal is: Learn what to do to prevent neck pain from geting worse. L shoulder goal to use the arm with less pain. Prior Functional Status Baseline Function- ADL's Independent Baseline Function- Mobility Independent Baseline Function- Recreation/Hobbies Able to hold and use chain saw for 3-6 hours. Baseline Function- Other Can only lift arm to shoulder height after neck surgery. No pain with lowering L arm holding a towel before surgery , not able to do after the surgery. Current Functional Impairments (Reported) Functional Limitations- ADL's Now have shocking pain when lowering the L arm after reaching upward. Intermittent neck pain. Personal Factors Other Personal Factors That May Effect Pt lives alone, recently Therapy/Recovery . Significant PMH (see Precautions above) PT-OP-C Subjective Start: 12/25/20 19:24 Freq: Status: Active Protocol: Document 01/06/21 11:20 LRN (Rec: 01/06/21 12:26 LRN [id number]) OP-PT Subjective Patient Comments Patient Comments Doing better, doing ex's and can sleep on L shoulder and it is not the reason for waking at night. PT-OP-E Functional Tests Start: 12/25/20 19:24 Freq: Status: Active Protocol: Document 01/01/21 13:42 LRN (Rec: 01/01/21 14:33 LRN [id number]) Functional Tests Apley's Scratch Test Action 1- Left Anterior R shoulder (pec minor ) Action 1- Right Behind the shoulder/neck Action 2- Left T2 Action 2- Right T2 Action 3- Left T6 Action 3- Right L2 PT-OP-H Neuro Start: 12/25/20 19:24 Freq: Status: Active Protocol: Document 01/01/21 13:42 LRN (Rec: 01/01/21 14:33 LRN [id number]) Sensation Evaluation Gross Sensation Gross Sensation WNL PT-OP-J Posture/Palpation/Skin Start: 12/25/20 19:24 Freq: Status: Active Protocol: Document 01/01/21 13:42 LRN (Rec: 01/01/21 14:33 LRN [id number]) Posture Evaluation Position Standing Head/C-Spine Posture Forward Head T-Spine Posture Flattened Shoulder Posture (R) Rounded,(R) Forward Comments Posture Comments R UT muscle tightness. Palpation Assessment Location L Posterior Deltoid & Supraspinatus Palpation Location Posterior Deltoid & Supraspinatus Palpation Details Muscle Atrophy Neck Palpation Location Subacromial, Upper trapezius Palpation Findings Muscle Guarding L shoulder Palpation Location Posterior aspect of Acrominon, subacromial, and anterior shoulder Palpation Findings Tenderness PT-OP-K Range of Motion Start: 12/25/20 19:24 Freq: Status: Active Protocol: Document 01/01/21 13:42 LRN (Rec: 01/01/21 14:33 LRN [id number]) Cervical Spine Range of Motion Cervical Spine Active Degrees Testing Position Sitting Flexion 43 Extension 30 Rotation Left 40 Rotation Right 40 ROM Limitations Pain Comments Posterior neck pain with extension Shoulder Goniometric Range of Motion Shoulder Right Active Shoulder ROM WFL Yes Testing Position Sitting Flexion 150 Extension 55 Abduction 145 Comments Pain with lowering arm Left Active Shoulder ROM WFL No Testing Position Sitting Flexion 155 Extension 55 Abduction 143 Comments Pain with lowering of arm Elbow/Forearm Range of Motion Elbow/Forearm Right Active ROM Testing Position Sitting Comments WNL Left Active ROM Testing Position Sitting Comments WNL PT-OP-L Special Tests Start: 12/25/20 19:24 Freq: Status: Active Protocol: Document 01/01/21 13:42 LRN (Rec: 01/01/21 14:33 LRN [id number]) Special Tests Shoulder Special Tests Drop Arm Rotator Cuff Test Results Positive bilaterally Comments Rotator cuff dysfunction Belly Press Test Results Negative bilaterally PT-OP-M Strength Start: 12/25/20 19:24 Freq: Status: Active Protocol: Document 01/01/21 13:42 LRN (Rec: 01/01/21 14:33 LRN [id number]) Cervical Spine Strength Cervical Spine Manual Muscle Testing Testing Position Sitting Shoulder Strength Shoulder Manual Muscle Testing Right Flexion 3+ Fair+ Abduction (C5) 3 Fair External Rotation 4+ Good+ Internal Rotation 5 Normal Left Flexion 3- Fair- Abduction (C5) 3- Fair- External Rotation 4- Good- Internal Rotation 5 Normal Elbow/Forearm Strength Elbow and Forearm Manual Muscle Testing Right Flexion (C6) 5 Normal Extension (C7) 5 Normal Left Flexion (C6) 5 Normal Extension (C7) 4- Good- PT-OP-Q Treatments Start: 12/25/20 19:24 Freq: Status: Active Protocol: Document 01/06/21 11:20 LRN (Rec: 01/06/21 12:26 LRN [id number]) Therapeutic Exercises Sitting Exercises Shoulder EXT Sitting Exercise Name Isometric Shoulder EXT Reps/Minutes 4' Shoulder AB Sitting Exercise Name Active shoulder AB Side bilateral Reps/Minutes 10x each Standing Exercises Scapular retract/depression Standing Exercise Name Lat pull down scapular action Side bilateral Reps/Minutes 10x Shoulder IR Standing Exercise Name Shoulder IR Equipment Used Lev 1 Shoulder ER Standing Exercise Name Shoulder ER Side bilateral Equipment Used Lev 1 Reps/Minutes 3 on left, 10x on right Row Standing Exercise Name Row Side bilateral Equipment Used Lev 1 Other Exercises Semi-reclined Other Exercise Name Cervical isometric ext/flex Reps/Minutes 6' Comments Extra time for training. Self-Care/Home Management Treatment Education Patient Education Home Exercise Program Other Education Educated pt in Cervical Isometric Ext and Isometric Deep Cervical neck flex ex while sitting in home recliner . Discussed precautions of limiting pressure of extension and working to tolerance of isometric neck flex. Activities Self-Care/Home Management Activities Issued white strap & Lev 1 TB for home ex's. Issued & reviewed HEP: STRENGTHENING: TBand: * Shoulder ER, *Shoulder IR, * Scapular retract, *Row PT-OP-R Modalities Start: 12/25/20 19:24 Freq: Status: Active Protocol: Document 01/06/21 11:20 LRN (Rec: 01/06/21 12:26 LRN [id number]) Hot Pack/Cold Pack Treatment Cold Pack Location Bilateral shoulders Treatment Duration (minutes) 10 Comments Position: Semi-reclined. PT-OP-T Assessment and Plan Start: 12/25/20 19:24 Freq: Status: Active Protocol: Document 01/06/21 11:20 LRN (Rec: 01/06/21 12:26 LRN [id number]) Physical Therapy Assessment Goals Three Impairment Neck pain Short Term Goal (STG) Pt will be educated in self care neck stabilization and AROM exercises. (01/06/21: Pt I/S in cervical Gideon neck ext and deep cervical neck flex, sitting in recliner chair at home) STG Duration 01/31/21 (01/06/21: Progressing) Residential Goal (LTG) Decrease onset of neck pain and decrease pain to 3/10. LTG Duration 03/02/21 Two Impairment L shoulder pain. Short Term Goal (STG) Pt will be independent on home rotator cuff and shoulder stabilizing exercises. (01/06/21: HEP: STRENGTHENING: TBand: *Shoulder ER, * Shoulder IR, *Scapular retract , *Row) STG Duration 01/31/21 (01/06/21: Progressing) Machine Shorthand Teacher Goal (LTG) Pt will be able to use the L arm with less shoulder pain on lowering the arm from shoulder height. LTG Duration 03/02/21 One Impairment Lacks self care HEP Machine Shorthand Teacher Goal (LTG) Pt will be independent in a self care HEP of neck and shoulder exercises to prevent pain from worsening. (01/06/21: HEP: STRENGTHENING: TBand: *Shoulder ER, * Shoulder IR, *Scapular retract , *Row) LTG Duration 03/02/21 (01/06/21: Progressing ) Progress Towards Goals Progress Comments Started HEP. Assessment Summary Assessment Pt doing some online ex's and is feeling better (Pendulums, shoulder: ER/IR/AB and CKC shoulder flex). Good tolerance to ex except ER restricted due to posterior shoulder pain. Physical Therapy Plan Frequency and Duration Frequency of Treatment 2x/Week Plan of Care Start Date 01/01/21 Plan of Care End Date 03/02/21 Next Visit Focus/Plan Next Note Type Treatment Note Next Visit Plan HEP for Cervical stabilization . Review rotator cuff and cervical gideon stab ex. Progress shoulder ext strengthening. STM to neck/ shoulders. 2-[address] on HEP, then weekly to progress his program. Use of US to subacromial region if needed. End ice .
--- NOTE | 2021-01-08 16:25 | PT.OTN ---
Current Diagnoses Primary osteoarthritis, left shoulder (01/08/21) Spinal stenosis, cervical region (01/08/21) Incomplete rotator cuff tear or rupture of left shoulder, not specified as traumatic (01/08/21) Physical Therapy Treatment Note PT-OP-A Visit Information Start: 12/25/20 19:24 Freq: Status: Active Protocol: Document 01/08/21 13:40 LRN (Rec: 01/08/21 14:24 LRN [id number]) Out-Patient Physical Therapy Visit Information Visit Information Visit Type Treatment Note Visit Start Time 13:40 Visit Stop Time 14:23 Total Visit Minutes 43 Visit Number 3 Evaluation Information Evaluation Date 01/01/21 Precautions Precautions Paroxysmal A. Fib - uncontrolled, Type II Diabetes, Cervical anterior fusion of C3 , C4, C5, C6 - 8 yrs ago, Essential HTN, Hypothyroidism, Hernia repair. PT-OP-B Current Condition Start: 12/25/20 19:24 Freq: Status: Active Protocol: Document 01/01/21 13:42 LRN (Rec: 01/01/21 14:33 LRN [id number]) Current Condition History of Current Condition Onset Date 8 yrs ago after cervical fusion Current Complaints Unable to lower L arm after lifting due to L shoulder pain , & neck pain. History of Current Condition Posterior neck and L shoulder pain onset after anterior cervical fusion C3-C6. Can sit in recliner chair, without neck pain, if pillow placed behind his head to prevent neck from tiring. States he can move his head around for exercise. He states his L shoulder pain is worse than the neck pain. He can only lie down on L side if he doesn 't lie entirely on his side, and he reports shooting pain in the shoulder with reaching upward, and he requires support of opposite arm to lower the L arm, otherwise he gets sharp shocking pain in the shoulder joint. He denies locking or catch or locking of the shoulder. Neck pain is rated 3/10 and at worst 5/ 10, L shoulder pain is 5/10. Prior Treatments and Tests Record review indicates report of partial L shoulder rotator cuff tear. Future Testing and Treatments Planned No scheduled follow up visit with referring physician, Dr. Hoang. Treatment Goals Patient/Caregiver Goals Pt goal is: Learn what to do to prevent neck pain from geting worse. L shoulder goal to use the arm with less pain. Prior Functional Status Baseline Function- ADL's Independent Baseline Function- Mobility Independent Baseline Function- Recreation/Hobbies Able to hold and use chain saw for 3-6 hours. Baseline Function- Other Can only lift arm to shoulder height after neck surgery. No pain with lowering L arm holding a towel before surgery , not able to do after the surgery. Current Functional Impairments (Reported) Functional Limitations- ADL's Now have shocking pain when lowering the L arm after reaching upward. Intermittent neck pain. Personal Factors Other Personal Factors That May Effect Pt lives alone, recently Therapy/Recovery . Significant PMH (see Precautions above) PT-OP-C Subjective Start: 12/25/20 19:24 Freq: Status: Active Protocol: Document 01/08/21 13:40 LRN (Rec: 01/08/21 14:24 LRN [id number]) OP-PT Subjective Patient Comments Patient Comments States he is using his cultivator for strengthening. Has headache, nothing in the back of the head. L shoulder is without pain today. PT-OP-E Functional Tests Start: 12/25/20 19:24 Freq: Status: Active Protocol: Document 01/01/21 13:42 LRN (Rec: 01/01/21 14:33 LRN [id number]) Functional Tests Apley's Scratch Test Action 1- Left Anterior R shoulder (pec minor ) Action 1- Right Behind the shoulder/neck Action 2- Left T2 Action 2- Right T2 Action 3- Left T6 Action 3- Right L2 PT-OP-H Neuro Start: 12/25/20 19:24 Freq: Status: Active Protocol: Document 01/01/21 13:42 LRN (Rec: 01/01/21 14:33 LRN [id number]) Sensation Evaluation Gross Sensation Gross Sensation WNL PT-OP-J Posture/Palpation/Skin Start: 12/25/20 19:24 Freq: Status: Active Protocol: Document 01/01/21 13:42 LRN (Rec: 01/01/21 14:33 LRN [id number]) Posture Evaluation Position Standing Head/C-Spine Posture Forward Head T-Spine Posture Flattened Shoulder Posture (R) Rounded,(R) Forward Comments Posture Comments R UT muscle tightness. Palpation Assessment Location L Posterior Deltoid & Supraspinatus Palpation Location Posterior Deltoid & Supraspinatus Palpation Details Muscle Atrophy Neck Palpation Location Subacromial, Upper trapezius Palpation Findings Muscle Guarding L shoulder Palpation Location Posterior aspect of Acrominon, subacromial, and anterior shoulder Palpation Findings Tenderness PT-OP-K Range of Motion Start: 12/25/20 19:24 Freq: Status: Active Protocol: Document 01/01/21 13:42 LRN (Rec: 01/01/21 14:33 LRN [id number]) Cervical Spine Range of Motion Cervical Spine Active Degrees Testing Position Sitting Flexion 43 Extension 30 Rotation Left 40 Rotation Right 40 ROM Limitations Pain Comments Posterior neck pain with extension Shoulder Goniometric Range of Motion Shoulder Right Active Shoulder ROM WFL Yes Testing Position Sitting Flexion 150 Extension 55 Abduction 145 Comments Pain with lowering arm Left Active Shoulder ROM WFL No Testing Position Sitting Flexion 155 Extension 55 Abduction 143 Comments Pain with lowering of arm Elbow/Forearm Range of Motion Elbow/Forearm Right Active ROM Testing Position Sitting Comments WNL Left Active ROM Testing Position Sitting Comments WNL PT-OP-L Special Tests Start: 12/25/20 19:24 Freq: Status: Active Protocol: Document 01/01/21 13:42 LRN (Rec: 01/01/21 14:33 LRN [id number]) Special Tests Shoulder Special Tests Drop Arm Rotator Cuff Test Results Positive bilaterally Comments Rotator cuff dysfunction Belly Press Test Results Negative bilaterally PT-OP-M Strength Start: 12/25/20 19:24 Freq: Status: Active Protocol: Document 01/01/21 13:42 LRN (Rec: 01/01/21 14:33 LRN [id number]) Cervical Spine Strength Cervical Spine Manual Muscle Testing Testing Position Sitting Shoulder Strength Shoulder Manual Muscle Testing Right Flexion 3+ Fair+ Abduction (C5) 3 Fair External Rotation 4+ Good+ Internal Rotation 5 Normal Left Flexion 3- Fair- Abduction (C5) 3- Fair- External Rotation 4- Good- Internal Rotation 5 Normal Elbow/Forearm Strength Elbow and Forearm Manual Muscle Testing Right Flexion (C6) 5 Normal Extension (C7) 5 Normal Left Flexion (C6) 5 Normal Extension (C7) 4- Good- PT-OP-Q Treatments Start: 12/25/20 19:24 Freq: Status: Active Protocol: Document 01/08/21 13:40 LRN (Rec: 01/08/21 14:24 LRN [id number]) Cardio Equipment Upper Body Ergometer (UBE) Duration (Minutes) 8 RPM 70 Seat Position 13 Height 2.5 Therapeutic Exercises Standing Exercises Shoulder Ext Standing Exercise Name Shoulder Ext Reps/Minutes 4' Comments Phys cuing to keep shoulders from shrugging Scapular retract/depression Standing Exercise Name Lat pull down scapular action Side bilateral Reps/Minutes 8' Shoulder IR Standing Exercise Name Shoulder IR Equipment Used Lev 1 Reps/Minutes 10x 3 Comments Extra time for proper positioning Shoulder ER Standing Exercise Name Shoulder ER Side bilateral Equipment Used Lev 1 Reps/Minutes 5x on left, 10x on right Comments Extra time for proper positioning Other Exercises Semi-reclined Other Exercise Name Cervical isometric ext/flex/SB , I/S in rot Reps/Minutes 10' Comments Extra time for training. Self-Care/Home Management Treatment Education Patient Education Home Exercise Program Activities Self-Care/Home Management Activities Issued & reviewed HEP: SHOULDERS: *Ext w/TB. NECK: GIDEON: *flex, *ext, *SB, *rot. PT-OP-R Modalities Start: 12/25/20 19:24 Freq: Status: Active Protocol: Document 01/06/21 11:20 LRN (Rec: 01/06/21 12:26 LRN [id number]) Hot Pack/Cold Pack Treatment Cold Pack Location Bilateral shoulders Treatment Duration (minutes) 10 Comments Position: Semi-reclined. PT-OP-T Assessment and Plan Start: 12/25/20 19:24 Freq: Status: Active Protocol: Document 01/08/21 13:40 LRN (Rec: 01/08/21 14:24 LRN [id number]) Physical Therapy Assessment Goals Three Impairment Neck pain Short Term Goal (STG) Pt will be educated in self care neck stabilization and AROM exercises. (01/06/21: Pt I/S in cervical Gideon neck ext and deep cervical neck flex, sitting in recliner chair at home) STG Duration 01/31/21 (01/06/21: Progressing) Dry Wall Sprayer Goal (LTG) Decrease onset of neck pain and decrease pain to 01/07. LTG Duration 03/02/21 Two Impairment L shoulder pain. Short Term Goal (STG) Pt will be independent on home rotator cuff and shoulder stabilizing exercises. (01/06/21: HEP: STRENGTHENING: TBand: *Shoulder ER, * Shoulder IR, *Scapular retract , *Row STRENGTHENING: TBand: *Shoulder ER, *Shoulder IR, * Scapular retract, *Row) STG Duration 01/31/21 (01/08/21: MET GOAL, Initial HEP) Dry Wall Sprayer Goal (LTG) Pt will be able to use the L arm with less shoulder pain on lowering the arm from shoulder height. LTG Duration 03/02/21 One Impairment Lacks self care HEP Dry Wall Sprayer Goal (LTG) Pt will be independent in a self care HEP of neck and shoulder exercises to prevent pain from worsening. HEP TO DATE: STRENGTHENING: TBand: SHOULDERS: * ER, * IR , *Row, *Ext w/TB. SCAPULA: *Retract. NECK: GIDEON: *flex, *ext, *SB, *rot. LTG Duration 03/02/21 (01/08/21: Progressing) Progress Towards Goals Progress Comments Progressed HEP. Pt is on a RC strengthening program (STG #2 MET) Assessment Summary Assessment Pt does well with HEP. Good tolerance to strengthening, but L shoulder ER tolerance is less than R side. Pt has poor scapular depression ability. Physical Therapy Plan Frequency and Duration Frequency of Treatment 2x/Week Plan of Care Start Date 01/01/21 Plan of Care End Date 03/02/21 Next Visit Focus/Plan Next Note Type Treatment Note Next Visit Plan Review HEP of Cervical stabilization and add C AROM ex to home program with handouts. Review shoulder ex' s and cervical gideon stab ex. Progress strengthening. STM to neck/shoulders. 2-[address] on HEP, then weekly to progress his program. Use of US to subacromial region if needed. End ice. Recheck painfree AROM of shoulders.
--- NOTE | 2021-01-13 12:17 | PT.OTN ---
Current Diagnoses Primary osteoarthritis, left shoulder (01/13/21) Spinal stenosis, cervical region (01/13/21) Incomplete rotator cuff tear or rupture of left shoulder, not specified as traumatic (01/13/21) Physical Therapy Treatment Note PT-OP-A Visit Information Start: 12/25/20 19:24 Freq: Status: Active Protocol: Document 01/13/21 11:16 LRN (Rec: 01/13/21 12:13 LRN [id number]) Out-Patient Physical Therapy Visit Information Visit Information Visit Type Treatment Note Visit Start Time 11:16 Visit Stop Time 12:02 Total Visit Minutes 46 Visit Number 4 Evaluation Information Evaluation Date 01/01/21 Precautions Precautions Paroxysmal A. Fib - uncontrolled, Type II Diabetes, Cervical anterior fusion of C3 , C4, C5, C6 - 8 yrs ago, Essential HTN, Hypothyroidism, Hernia repair. PT-OP-B Current Condition Start: 12/25/20 19:24 Freq: Status: Active Protocol: Document 01/01/21 13:42 LRN (Rec: 01/01/21 14:33 LRN [id number]) Current Condition History of Current Condition Onset Date 8 yrs ago after cervical fusion Current Complaints Unable to lower L arm after lifting due to L shoulder pain , & neck pain. History of Current Condition Posterior neck and L shoulder pain onset after anterior cervical fusion C3-C6. Can sit in recliner chair, without neck pain, if pillow placed behind his head to prevent neck from tiring. States he can move his head around for exercise. He states his L shoulder pain is worse than the neck pain. He can only lie down on L side if he doesn 't lie entirely on his side, and he reports shooting pain in the shoulder with reaching upward, and he requires support of opposite arm to lower the L arm, otherwise he gets sharp shocking pain in the shoulder joint. He denies locking or catch or locking of the shoulder. Neck pain is rated 3/10 and at worst 5/ 10, L shoulder pain is 5/10. Prior Treatments and Tests Record review indicates report of partial L shoulder rotator cuff tear. Future Testing and Treatments Planned No scheduled follow up visit with referring physician, Dr. Hoang. Treatment Goals Patient/Caregiver Goals Pt goal is: Learn what to do to prevent neck pain from geting worse. L shoulder goal to use the arm with less pain. Prior Functional Status Baseline Function- ADL's Independent Baseline Function- Mobility Independent Baseline Function- Recreation/Hobbies Able to hold and use chain saw for 3-6 hours. Baseline Function- Other Can only lift arm to shoulder height after neck surgery. No pain with lowering L arm holding a towel before surgery , not able to do after the surgery. Current Functional Impairments (Reported) Functional Limitations- ADL's Now have shocking pain when lowering the L arm after reaching upward. Intermittent neck pain. Personal Factors Other Personal Factors That May Effect Pt lives alone, recently Therapy/Recovery . Significant PMH (see Precautions above) PT-OP-C Subjective Start: 12/25/20 19:24 Freq: Status: Active Protocol: Document 01/13/21 11:16 LRN (Rec: 01/13/21 12:13 LRN [id number]) OP-PT Subjective Patient Comments Patient Comments Able to sleep on L shoulder for a little bit uncomfortable. PT-OP-E Functional Tests Start: 12/25/20 19:24 Freq: Status: Active Protocol: Document 01/01/21 13:42 LRN (Rec: 01/01/21 14:33 LRN [id number]) Functional Tests Apley's Scratch Test Action 1- Left Anterior R shoulder (pec minor ) Action 1- Right Behind the shoulder/neck Action 2- Left T2 Action 2- Right T2 Action 3- Left T6 Action 3- Right L2 PT-OP-H Neuro Start: 12/25/20 19:24 Freq: Status: Active Protocol: Document 01/01/21 13:42 LRN (Rec: 01/01/21 14:33 LRN [id number]) Sensation Evaluation Gross Sensation Gross Sensation WNL PT-OP-J Posture/Palpation/Skin Start: 12/25/20 19:24 Freq: Status: Active Protocol: Document 01/01/21 13:42 LRN (Rec: 01/01/21 14:33 LRN [id number]) Posture Evaluation Position Standing Head/C-Spine Posture Forward Head T-Spine Posture Flattened Shoulder Posture (R) Rounded,(R) Forward Comments Posture Comments R UT muscle tightness. Palpation Assessment Location L Posterior Deltoid & Supraspinatus Palpation Location Posterior Deltoid & Supraspinatus Palpation Details Muscle Atrophy Neck Palpation Location Subacromial, Upper trapezius Palpation Findings Muscle Guarding L shoulder Palpation Location Posterior aspect of Acrominon, subacromial, and anterior shoulder Palpation Findings Tenderness PT-OP-K Range of Motion Start: 12/25/20 19:24 Freq: Status: Active Protocol: Document 01/01/21 13:42 LRN (Rec: 01/01/21 14:33 LRN [id number]) Cervical Spine Range of Motion Cervical Spine Active Degrees Testing Position Sitting Flexion 43 Extension 30 Rotation Left 40 Rotation Right 40 ROM Limitations Pain Comments Posterior neck pain with extension Shoulder Goniometric Range of Motion Shoulder Right Active Shoulder ROM WFL Yes Testing Position Sitting Flexion 150 Extension 55 Abduction 145 Comments Pain with lowering arm Left Active Shoulder ROM WFL No Testing Position Sitting Flexion 155 Extension 55 Abduction 143 Comments Pain with lowering of arm Elbow/Forearm Range of Motion Elbow/Forearm Right Active ROM Testing Position Sitting Comments WNL Left Active ROM Testing Position Sitting Comments WNL PT-OP-L Special Tests Start: 12/25/20 19:24 Freq: Status: Active Protocol: Document 01/01/21 13:42 LRN (Rec: 01/01/21 14:33 LRN [id number]) Special Tests Shoulder Special Tests Drop Arm Rotator Cuff Test Results Positive bilaterally Comments Rotator cuff dysfunction Belly Press Test Results Negative bilaterally PT-OP-M Strength Start: 12/25/20 19:24 Freq: Status: Active Protocol: Document 01/01/21 13:42 LRN (Rec: 01/01/21 14:33 LRN [id number]) Cervical Spine Strength Cervical Spine Manual Muscle Testing Testing Position Sitting Shoulder Strength Shoulder Manual Muscle Testing Right Flexion 3+ Fair+ Abduction (C5) 3 Fair External Rotation 4+ Good+ Internal Rotation 5 Normal Left Flexion 3- Fair- Abduction (C5) 3- Fair- External Rotation 4- Good- Internal Rotation 5 Normal Elbow/Forearm Strength Elbow and Forearm Manual Muscle Testing Right Flexion (C6) 5 Normal Extension (C7) 5 Normal Left Flexion (C6) 5 Normal Extension (C7) 4- Good- PT-OP-Q Treatments Start: 12/25/20 19:24 Freq: Status: Active Protocol: Document 01/13/21 11:16 LRN (Rec: 01/13/21 12:13 LRN [id number]) Cardio Equipment Upper Body Ergometer (UBE) Duration (Minutes) 9 RPM 70 Seat Position 12 Height 2.5 Other 2' back/fwd, last 1' - [address] Therapeutic Exercises Sitting Exercises C AROM Sitting Exercise Name C. AROM: ext, rotation Side bilateral Reps/Minutes 3' Shoulder AB Sitting Exercise Name Active shoulder AB Side bilateral Reps/Minutes 4x each Standing Exercises Shoulder Ext Standing Exercise Name Shoulder Ext Equipment Used Lev 2 Reps/Minutes 4' Comments Phys cuing to keep shoulders from shrugging Shoulder IR Standing Exercise Name Shoulder IR Equipment Used Lev 2 Reps/Minutes 10x 2 Comments Extra time for proper positioning Shoulder ER Standing Exercise Name Shoulder ER Side bilateral Equipment Used Lev 2 TB Reps/Minutes 2' Comments Extra time for proper positioning Row Standing Exercise Name Row Side bilateral Equipment Used Lev 2 Reps/Minutes 10 x 2 Other Exercises Semi-reclined Other Exercise Name Cervical isometric ext/flex/SB , I/S in rot Reps/Minutes 8' Comments Extra time for review Self-Care/Home Management Treatment Education Patient Education Home Exercise Program Activities Self-Care/Home Management Activities Issued & reviewed HEP: C. AROM: rot & ext exercise. PT-OP-R Modalities Start: 12/25/20 19:24 Freq: Status: Active Protocol: Document 01/06/21 11:20 LRN (Rec: 01/06/21 12:26 LRN [id number]) Hot Pack/Cold Pack Treatment Cold Pack Location Bilateral shoulders Treatment Duration (minutes) 10 Comments Position: Semi-reclined. PT-OP-T Assessment and Plan Start: 12/25/20 19:24 Freq: Status: Active Protocol: Document 01/13/21 11:16 LRN (Rec: 01/13/21 12:13 LRN [id number]) Physical Therapy Assessment Goals Three Impairment Neck pain Short Term Goal (STG) Pt will be educated in self care neck stabilization and AROM exercises. (01/13/21: HEP issued for C. isometrics, and C. AROM ext & rot) STG Duration 01/31/21 (01/13/21: GOALS MET) Tow Operator Goal (LTG) Decrease onset of neck pain and decrease pain to 3/10. LTG Duration 03/02/21 Two Impairment L shoulder pain. Short Term Goal (STG) Pt will be independent on home rotator cuff and shoulder stabilizing exercises. (01/06/21: HEP: STRENGTHENING: TBand: *Shoulder ER, * Shoulder IR, *Scapular retract , *Row STRENGTHENING: TBand: *Shoulder ER, *Shoulder IR, * Scapular retract, *Row) STG Duration 01/31/21 (01/08/21: MET GOAL, Initial HEP) Long-Term Goal (LTG) Pt will be able to use the L arm with less shoulder pain on lowering the arm from shoulder height. (01/13/21: A little pain on return from AB on L shoulder). LTG Duration 03/02/21 (01/13/21: Progressing) One Impairment Lacks self care HEP Tow Operator Goal (LTG) Pt will be independent in a self care HEP of neck and shoulder exercises to prevent pain from worsening. HEP TO DATE: STRENGTHENING: TBand: SHOULDERS: * ER, * IR , *Row, *Ext w/TB. SCAPULA: *Retract. NECK: YOUSUF: *flex, *ext, *SB, *rot. AROM: *Rot & *Ext. LTG Duration 03/02/21 (01/13/21: Progressing) Progress Towards Goals Progress Comments Progressed HEP. Improved tolerance to shoulder strengthening and neck isometric exercises. Able to increase reps and and position for yousuf ex with less onset of R shoulder pain. Assessment Summary Assessment Pt appears to have good understanding of his HEP previously issued. Shoulder endurance is low, pt fatigued after 8' on UBE, but tolerated 1' more today. Scapular depression increased Lateral R shoulder pain. Pt having less pain with active descent of arms in AB. No pain in neck with ROM ex's and generally at rest. Physical Therapy Plan Frequency and Duration Frequency of Treatment 2x/Week Plan of Care Start Date 01/01/21 Plan of Care End Date 03/02/21 Next Visit Focus/Plan Next Note Type Treatment Note Next Visit Plan Review HEP of C AROM ex's. Progress to 10 on UBE for endurance strengthening. STM to neck/shoulders if needed. If pt able to lower arms with mild to no pain from overhead (flex, AB), then DC to HEP or 1-2 visits for painfree L shoulder & independence on HEP . US to subacromial region or ice if needed. Recheck painfree AROM of shoulders.
--- NOTE | 2021-01-15 14:27 | PT.OTN ---
Current Diagnoses Primary osteoarthritis, left shoulder (01/15/21) Spinal stenosis, cervical region (01/15/21) Incomplete rotator cuff tear or rupture of left shoulder, not specified as traumatic (01/15/21) Physical Therapy Treatment Note PT-OP-A Visit Information Start: 12/25/20 19:24 Freq: Status: Active Protocol: Document 01/15/21 13:43 LRN (Rec: 01/15/21 14:26 LRN [id number]) Out-Patient Physical Therapy Visit Information Visit Information Visit Type Treatment Note Visit Start Time 13:43 Visit Stop Time 14:23 Total Visit Minutes 40 Visit Number 5 Evaluation Information Evaluation Date 01/01/21 Precautions Precautions Paroxysmal A. Fib - uncontrolled, Type II Diabetes, Cervical anterior fusion of C3 , C4, C5, C6 - 8 yrs ago, Essential HTN, Hypothyroidism, Hernia repair. PT-OP-B Current Condition Start: 12/25/20 19:24 Freq: Status: Active Protocol: Document 01/01/21 13:42 LRN (Rec: 01/01/21 14:33 LRN [id number]) Current Condition History of Current Condition Onset Date 8 yrs ago after cervical fusion Current Complaints Unable to lower L arm after lifting due to L shoulder pain , & neck pain. History of Current Condition Posterior neck and L shoulder pain onset after anterior cervical fusion C3-C6. Can sit in recliner chair, without neck pain, if pillow placed behind his head to prevent neck from tiring. States he can move his head around for exercise. He states his L shoulder pain is worse than the neck pain. He can only lie down on L side if he doesn 't lie entirely on his side, and he reports shooting pain in the shoulder with reaching upward, and he requires support of opposite arm to lower the L arm, otherwise he gets sharp shocking pain in the shoulder joint. He denies locking or catch or locking of the shoulder. Neck pain is rated 3/10 and at worst 5/ 10, L shoulder pain is 5/10. Prior Treatments and Tests Record review indicates report of partial L shoulder rotator cuff tear. Future Testing and Treatments Planned No scheduled follow up visit with referring physician, Dr. Hoang. Treatment Goals Patient/Caregiver Goals Pt goal is: Learn what to do to prevent neck pain from geting worse. L shoulder goal to use the arm with less pain. Prior Functional Status Baseline Function- ADL's Independent Baseline Function- Mobility Independent Baseline Function- Recreation/Hobbies Able to hold and use chain saw for 3-6 hours. Baseline Function- Other Can only lift arm to shoulder height after neck surgery. No pain with lowering L arm holding a towel before surgery , not able to do after the surgery. Current Functional Impairments (Reported) Functional Limitations- ADL's Now have shocking pain when lowering the L arm after reaching upward. Intermittent neck pain. Personal Factors Other Personal Factors That May Effect Pt lives alone, recently Therapy/Recovery . Significant PMH (see Precautions above) PT-OP-C Subjective Start: 12/25/20 19:24 Freq: Status: Active Protocol: Document 01/15/21 13:43 LRN (Rec: 01/15/21 14:26 LRN [id number]) OP-PT Subjective Patient Comments Patient Comments States he is 80% better in L shoulder. Was using a demo hammer without pain I know how to use it properly. Depending on what he does, his neck can still bother him, like use of laptop or the way he sleeps at night. Able to lift bath towel off hook and lower it down without the L shoulder hurting. PT-OP-E Functional Tests Start: 12/25/20 19:24 Freq: Status: Active Protocol: Document 01/01/21 13:42 LRN (Rec: 01/01/21 14:33 LRN [id number]) Functional Tests Apley's Scratch Test Action 1- Left Anterior R shoulder (pec minor ) Action 1- Right Behind the shoulder/neck Action 2- Left T2 Action 2- Right T2 Action 3- Left T6 Action 3- Right L2 PT-OP-H Neuro Start: 12/25/20 19:24 Freq: Status: Active Protocol: Document 01/01/21 13:42 LRN (Rec: 01/01/21 14:33 LRN [id number]) Sensation Evaluation Gross Sensation Gross Sensation WNL PT-OP-J Posture/Palpation/Skin Start: 12/25/20 19:24 Freq: Status: Active Protocol: Document 01/01/21 13:42 LRN (Rec: 01/01/21 14:33 LRN [id number]) Posture Evaluation Position Standing Head/C-Spine Posture Forward Head T-Spine Posture Flattened Shoulder Posture (R) Rounded,(R) Forward Comments Posture Comments R UT muscle tightness. Palpation Assessment Location L Posterior Deltoid & Supraspinatus Palpation Location Posterior Deltoid & Supraspinatus Palpation Details Muscle Atrophy Neck Palpation Location Subacromial, Upper trapezius Palpation Findings Muscle Guarding L shoulder Palpation Location Posterior aspect of Acrominon, subacromial, and anterior shoulder Palpation Findings Tenderness PT-OP-K Range of Motion Start: 12/25/20 19:24 Freq: Status: Active Protocol: Document 01/01/21 13:42 LRN (Rec: 01/01/21 14:33 LRN [id number]) Cervical Spine Range of Motion Cervical Spine Active Degrees Testing Position Sitting Flexion 43 Extension 30 Rotation Left 40 Rotation Right 40 ROM Limitations Pain Comments Posterior neck pain with extension Shoulder Goniometric Range of Motion Shoulder Right Active Shoulder ROM WFL Yes Testing Position Sitting Flexion 150 Extension 55 Abduction 145 Comments Pain with lowering arm Left Active Shoulder ROM WFL No Testing Position Sitting Flexion 155 Extension 55 Abduction 143 Comments Pain with lowering of arm Elbow/Forearm Range of Motion Elbow/Forearm Right Active ROM Testing Position Sitting Comments WNL Left Active ROM Testing Position Sitting Comments WNL PT-OP-L Special Tests Start: 12/25/20 19:24 Freq: Status: Active Protocol: Document 01/01/21 13:42 LRN (Rec: 01/01/21 14:33 LRN [id number]) Special Tests Shoulder Special Tests Drop Arm Rotator Cuff Test Results Positive bilaterally Comments Rotator cuff dysfunction Belly Press Test Results Negative bilaterally PT-OP-M Strength Start: 12/25/20 19:24 Freq: Status: Active Protocol: Document 01/01/21 13:42 LRN (Rec: 01/01/21 14:33 LRN [id number]) Cervical Spine Strength Cervical Spine Manual Muscle Testing Testing Position Sitting Shoulder Strength Shoulder Manual Muscle Testing Right Flexion 3+ Fair+ Abduction (C5) 3 Fair External Rotation 4+ Good+ Internal Rotation 5 Normal Left Flexion 3- Fair- Abduction (C5) 3- Fair- External Rotation 4- Good- Internal Rotation 5 Normal Elbow/Forearm Strength Elbow and Forearm Manual Muscle Testing Right Flexion (C6) 5 Normal Extension (C7) 5 Normal Left Flexion (C6) 5 Normal Extension (C7) 4- Good- PT-OP-Q Treatments Start: 12/25/20 19:24 Freq: Status: Active Protocol: Document 01/15/21 13:43 LRN (Rec: 01/15/21 14:26 LRN [id number]) Cardio Equipment Upper Body Ergometer (UBE) Duration (Minutes) 10 RPM 70 Seat Position 12 Height 2.5 Other 2' back/fwd, last 1' - [address] Therapeutic Exercises Sitting Exercises C. Gideon ex Sitting Exercise Name C. Isometric ext, SB Reps/Minutes 8' C AROM Sitting Exercise Name C. AROM: ext, rotation Side bilateral Reps/Minutes 3' Shoulder AB Sitting Exercise Name Active shoulder AB Side bilateral Reps/Minutes 10x each Standing Exercises Shoulder Ext Standing Exercise Name Shoulder Ext Equipment Used Lev 2 Reps/Minutes 15 x 2 Comments Phys cuing to keep shoulders from shrugging Shoulder IR Standing Exercise Name Shoulder IR Equipment Used Lev 2 Reps/Minutes 15x 2 Comments Extra time for proper positioning Shoulder ER Standing Exercise Name Shoulder ER Side bilateral Equipment Used Lev 2 TB Reps/Minutes 15 x 2 Comments Extra time for proper positioning Row Standing Exercise Name Row Side bilateral Equipment Used Lev 2 Reps/Minutes 15 x 2 Comments Burning at medial scapular border at end PT-OP-R Modalities Start: 12/25/20 19:24 Freq: Status: Active Protocol: Document 01/06/21 11:20 LRN (Rec: 01/06/21 12:26 LRN [id number]) Hot Pack/Cold Pack Treatment Cold Pack Location Bilateral shoulders Treatment Duration (minutes) 10 Comments Position: Semi-reclined. PT-OP-T Assessment and Plan Start: 12/25/20 19:24 Freq: Status: Active Protocol: Document 01/15/21 13:43 LRN (Rec: 01/15/21 14:26 LRN [id number]) Physical Therapy Assessment Goals Three Impairment Neck pain Short Term Goal (STG) Pt will be educated in self care neck stabilization and AROM exercises. (01/13/21: HEP issued for C. isometrics, and C. AROM ext & rot) STG Duration 01/31/21 (01/13/21: GOALS MET) Retirement Goal (LTG) Decrease onset of neck pain and decrease pain to 3/10. LTG Duration 03/02/21 Two Impairment L shoulder pain. Short Term Goal (STG) Pt will be independent on home rotator cuff and shoulder stabilizing exercises. (01/06/21: HEP: STRENGTHENING: TBand: *Shoulder ER, * Shoulder IR, *Scapular retract , *Row STRENGTHENING: TBand: *Shoulder ER, *Shoulder IR, * Scapular retract, *Row) STG Duration 01/31/21 (01/08/21: MET GOAL, Initial HEP) Retirement Goal (LTG) Pt will be able to use the L arm with less shoulder pain on lowering the arm from shoulder height. (01/15/21: No pain on return from AB on L shoulder). LTG Duration 03/02/21 (01/15/21: MET GOAL) One Impairment Lacks self care HEP Retirement Goal (LTG) Pt will be independent in a self care HEP of neck and shoulder exercises to prevent pain from worsening. HEP TO DATE: STRENGTHENING: TBand: SHOULDERS: * ER, * IR , *Row, *Ext w/TB. SCAPULA: *Retract. NECK: GIDEON: *flex, *ext, *SB, *rot. AROM: *Rot & *Ext. LTG Duration 03/02/21 (01/13/21: Progressing) Progress Towards Goals Progress Comments Increasing ex tolerance. LTGoal #2 MET. Assessment Summary Assessment Pt able to perform ex's without pain or discomfort. Good tolerance to isometric cervical exercises. Pt endurance improving. Pt now able to lower arms without shoulder pain. Physical Therapy Plan Frequency and Duration Frequency of Treatment 2x/Week Plan of Care Start Date 01/01/21 Plan of Care End Date 03/02/21 Next Visit Focus/Plan Next Note Type Treatment Note Next Visit Plan STM to neck/shoulders if needed. Pt able to lower arms with mild to no pain from overhead (flex, AB); therefore DC to HEP 1-2 visits for painfree L shoulder & independence on HEP. US to subacromial region or ice if needed. Recheck painfree AROM of shoulders.
--- NOTE | 2021-01-23 12:11 | PT.OTN ---
Current Diagnoses Primary osteoarthritis, left shoulder (01/23/21) Spinal stenosis, cervical region (01/23/21) Incomplete rotator cuff tear or rupture of left shoulder, not specified as traumatic (01/23/21) Physical Therapy Treatment Note PT-OP-A Visit Information Start: 12/25/20 19:24 Freq: Status: Active Protocol: Document 01/23/21 11:17 LRN (Rec: 01/23/21 12:08 LRN [id number]) Out-Patient Physical Therapy Visit Information Visit Information Visit Type Treatment Note Visit Start Time 11:17 Visit Stop Time 12:07 Total Visit Minutes 50 Visit Number 6 Evaluation Information Evaluation Date 01/01/21 Precautions Precautions Paroxysmal A. Fib - uncontrolled, Type II Diabetes, Cervical anterior fusion of C3 , C4, C5, C6 - 8 yrs ago, Essential HTN, Hypothyroidism, Hernia repair. PT-OP-B Current Condition Start: 12/25/20 19:24 Freq: Status: Active Protocol: Document 01/01/21 13:42 LRN (Rec: 01/01/21 14:33 LRN [id number]) Current Condition History of Current Condition Onset Date 8 yrs ago after cervical fusion Current Complaints Unable to lower L arm after lifting due to L shoulder pain , & neck pain. History of Current Condition Posterior neck and L shoulder pain onset after anterior cervical fusion C3-C6. Can sit in recliner chair, without neck pain, if pillow placed behind his head to prevent neck from tiring. States he can move his head around for exercise. He states his L shoulder pain is worse than the neck pain. He can only lie down on L side if he doesn 't lie entirely on his side, and he reports shooting pain in the shoulder with reaching upward, and he requires support of opposite arm to lower the L arm, otherwise he gets sharp shocking pain in the shoulder joint. He denies locking or catch or locking of the shoulder. Neck pain is rated 3/10 and at worst 5/ 10, L shoulder pain is 5/10. Prior Treatments and Tests Record review indicates report of partial L shoulder rotator cuff tear. Future Testing and Treatments Planned No scheduled follow up visit with referring physician, Dr. Hoang. Treatment Goals Patient/Caregiver Goals Pt goal is: Learn what to do to prevent neck pain from geting worse. L shoulder goal to use the arm with less pain. Prior Functional Status Baseline Function- ADL's Independent Baseline Function- Mobility Independent Baseline Function- Recreation/Hobbies Able to hold and use chain saw for 3-6 hours. Baseline Function- Other Can only lift arm to shoulder height after neck surgery. No pain with lowering L arm holding a towel before surgery , not able to do after the surgery. Current Functional Impairments (Reported) Functional Limitations- ADL's Now have shocking pain when lowering the L arm after reaching upward. Intermittent neck pain. Personal Factors Other Personal Factors That May Effect Pt lives alone, recently Therapy/Recovery . Significant PMH (see Precautions above) PT-OP-C Subjective Start: 12/25/20 19:24 Freq: Status: Active Protocol: Document 01/23/21 11:17 LRN (Rec: 01/23/21 12:08 LRN [id number]) OP-PT Subjective Patient Comments Patient Comments R shoulder is sore from sleeping on it and using it to drive his tractor. 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 PT-OP-E Functional Tests Start: 12/25/20 19:24 Freq: Status: Active Protocol: Document 01/01/21 13:42 LRN (Rec: 01/01/21 14:33 LRN [id number]) Functional Tests Apley's Scratch Test Action 1- Left Anterior R shoulder (pec minor ) Action 1- Right Behind the shoulder/neck Action 2- Left T2 Action 2- Right T2 Action 3- Left T6 Action 3- Right L2 PT-OP-H Neuro Start: 12/25/20 19:24 Freq: Status: Active Protocol: Document 01/01/21 13:42 LRN (Rec: 01/01/21 14:33 LRN [id number]) Sensation Evaluation Gross Sensation Gross Sensation WNL PT-OP-J Posture/Palpation/Skin Start: 12/25/20 19:24 Freq: Status: Active Protocol: Document 01/01/21 13:42 LRN (Rec: 01/01/21 14:33 LRN [id number]) Posture Evaluation Position Standing Head/C-Spine Posture Forward Head T-Spine Posture Flattened Shoulder Posture (R) Rounded,(R) Forward Comments Posture Comments R UT muscle tightness. Palpation Assessment Location L Posterior Deltoid & Supraspinatus Palpation Location Posterior Deltoid & Supraspinatus Palpation Details Muscle Atrophy Neck Palpation Location Subacromial, Upper trapezius Palpation Findings Muscle Guarding L shoulder Palpation Location Posterior aspect of Acrominon, subacromial, and anterior shoulder Palpation Findings Tenderness PT-OP-K Range of Motion Start: 12/25/20 19:24 Freq: Status: Active Protocol: Document 01/01/21 13:42 LRN (Rec: 01/01/21 14:33 LRN [id number]) Cervical Spine Range of Motion Cervical Spine Active Degrees Testing Position Sitting Flexion 43 Extension 30 Rotation Left 40 Rotation Right 40 ROM Limitations Pain Comments Posterior neck pain with extension Shoulder Goniometric Range of Motion Shoulder Right Active Shoulder ROM WFL Yes Testing Position Sitting Flexion 150 Extension 55 Abduction 145 Comments Pain with lowering arm Left Active Shoulder ROM WFL No Testing Position Sitting Flexion 155 Extension 55 Abduction 143 Comments Pain with lowering of arm Elbow/Forearm Range of Motion Elbow/Forearm Right Active ROM Testing Position Sitting Comments WNL Left Active ROM Testing Position Sitting Comments WNL PT-OP-L Special Tests Start: 12/25/20 19:24 Freq: Status: Active Protocol: Document 01/01/21 13:42 LRN (Rec: 01/01/21 14:33 LRN [id number]) Special Tests Shoulder Special Tests Drop Arm Rotator Cuff Test Results Positive bilaterally Comments Rotator cuff dysfunction Belly Press Test Results Negative bilaterally PT-OP-M Strength Start: 12/25/20 19:24 Freq: Status: Active Protocol: Document 01/01/21 13:42 LRN (Rec: 01/01/21 14:33 LRN [id number]) Cervical Spine Strength Cervical Spine Manual Muscle Testing Testing Position Sitting Shoulder Strength Shoulder Manual Muscle Testing Right Flexion 3+ Fair+ Abduction (C5) 3 Fair External Rotation 4+ Good+ Internal Rotation 5 Normal Left Flexion 3- Fair- Abduction (C5) 3- Fair- External Rotation 4- Good- Internal Rotation 5 Normal Elbow/Forearm Strength Elbow and Forearm Manual Muscle Testing Right Flexion (C6) 5 Normal Extension (C7) 5 Normal Left Flexion (C6) 5 Normal Extension (C7) 4- Good- PT-OP-Q Treatments Start: 12/25/20 19:24 Freq: Status: Active Protocol: Document 01/23/21 11:17 LRN (Rec: 01/23/21 12:08 LRN [id number]) Cardio Equipment Upper Body Ergometer (UBE) Duration (Minutes) 10 RPM 70 Seat Position 12 Height 2.5 Other 2' back/fwd, last 1' - [address] Therapeutic Exercises Supine Exercises Shoulder ER stretch Supine Exercise Name Shoulder ER stretch Side bilateral Reps/Minutes 4' Standing Exercises Shoulder AROM Standing Exercise Name Flex/AB Side bilateral Comments Pain on return with R shoulder , discomfort on L shoulder [facility] Shoulder Flex Standing Exercise Name FITTER: [facility] Shoulder Flex Equipment Used Small Band, Ext w/med band Reps/Minutes 6' [facility] Horiz AB/AD Standing Exercise Name FITTER: [facility] Shoulder Horiz AB /AD Side bilateral Equipment Used Small band, Reps/Minutes 3' Shoulder IR Standing Exercise Name Shoulder IR Equipment Used Lev 2 Reps/Minutes 15x 2 Shoulder ER Standing Exercise Name Shoulder ER Side bilateral Equipment Used Lev 1 & Lev 2 TB Reps/Minutes 15 x each Row Standing Exercise Name Row Side bilateral Equipment Used Lev 2 Reps/Minutes 15 x 2 Self-Care/Home Management Treatment Activities Self-Care/Home Management Activities Pt I/S to do ROW ex as well as shoulder ext exercise with HEP. PT-OP-R Modalities Start: 12/25/20 19:24 Freq: Status: Active Protocol: Document 01/06/21 11:20 LRN (Rec: 01/06/21 12:26 LRN [id number]) Hot Pack/Cold Pack Treatment Cold Pack Location Bilateral shoulders Treatment Duration (minutes) 10 Comments Position: Semi-reclined. PT-OP-T Assessment and Plan Start: 12/25/20 19:24 Freq: Status: Active Protocol: Document 01/23/21 11:17 LRN (Rec: 01/23/21 12:08 LRN [id number]) Physical Therapy Assessment Goals Three Impairment Neck pain Short Term Goal (STG) Pt will be educated in self care neck stabilization and AROM exercises. (01/13/21: HEP issued for C. isometrics, and C. AROM ext & rot) STG Duration 01/31/21 (01/13/21: GOALS MET) [facility] Goal (LTG) Decrease onset of neck pain and decrease pain to 3/10. LTG Duration 03/02/21 Two Impairment L shoulder pain. Short Term Goal (STG) Pt will be independent on home rotator cuff and shoulder stabilizing exercises. (01/06/21: HEP: STRENGTHENING: TBand: *Shoulder ER, * Shoulder IR, *Scapular retract , *Row STRENGTHENING: TBand: *Shoulder ER, *Shoulder IR, * Scapular retract, *Row) STG Duration 01/31/21 (01/08/21: MET GOAL, Initial HEP) [facility] Goal (LTG) Pt will be able to use the L arm with less shoulder pain on lowering the arm from shoulder height. (01/15/21: No pain on return from AB on L shoulder). LTG Duration 03/02/21 (01/15/21: MET GOAL) One Impairment Lacks self care HEP [facility] Goal (LTG) Pt will be independent in a self care HEP of neck and shoulder exercises to prevent pain from worsening. HEP TO DATE: STRENGTHENING: TBand: SHOULDERS: * ER, * IR , *Row, *Ext w/TB. SCAPULA: *Retract. NECK: YOUSUF: *flex, *ext, *SB, *rot. AROM: *Rot & *Ext. LTG Duration 03/02/21 (01/13/21: Progressing) Assessment Summary Assessment Pt increasing in level of activity; therefore he has onset of R shoulder pain, mild L shoulder pain, and neck discomfort today. Pt demonstrates improved range during shoulder ER strengthening. Pt shows substitution of R shoulder with shoulder flex & AB, L shoulder mobility is normal. Physical Therapy Plan Frequency and Duration Frequency of Treatment 2x/Week Plan of Care Start Date 01/01/21 Plan of Care End Date 03/02/21 Next Visit Focus/Plan Next Note Type Treatment Note Next Visit Plan Recheck painfree AROM of shoulders. Cont strengthen posterior shoulder muscles. If pt able to lower arms with mild to no pain from overhead (flex, AB); therefore DC to HEP 1-2 visits for painfree L shoulder & independence on HEP . US to subacromial region, STM to neck/shoulders, or ice if needed.
--- NOTE | 2021-01-29 12:30 | PT.OTN ---
Current Diagnoses Primary osteoarthritis, left shoulder (01/29/21) Spinal stenosis, cervical region (01/29/21) Incomplete rotator cuff tear or rupture of left shoulder, not specified as traumatic (01/29/21) Physical Therapy Treatment Note PT-OP-A Visit Information Start: 12/25/20 19:24 Freq: Status: Active Protocol: Document 01/29/21 11:20 LRN (Rec: 01/29/21 12:08 LRN [id number]) Out-Patient Physical Therapy Visit Information Visit Information Visit Type Treatment Note Visit Start Time 11:20 Visit Stop Time 12:00 Total Visit Minutes 40 Visit Number 7 Evaluation Information Evaluation Date 01/01/21 Precautions Precautions Paroxysmal A. Fib - uncontrolled, Type II Diabetes, Cervical anterior fusion of C3 , C4, C5, C6 - 8 yrs ago, Essential HTN, Hypothyroidism, Hernia repair. PT-OP-B Current Condition Start: 12/25/20 19:24 Freq: Status: Active Protocol: Document 01/01/21 13:42 LRN (Rec: 01/01/21 14:33 LRN [id number]) Current Condition History of Current Condition Onset Date 8 yrs ago after cervical fusion Current Complaints Unable to lower L arm after lifting due to L shoulder pain , & neck pain. History of Current Condition Posterior neck and L shoulder pain onset after anterior cervical fusion C3-C6. Can sit in recliner chair, without neck pain, if pillow placed behind his head to prevent neck from tiring. States he can move his head around for exercise. He states his L shoulder pain is worse than the neck pain. He can only lie down on L side if he doesn 't lie entirely on his side, and he reports shooting pain in the shoulder with reaching upward, and he requires support of opposite arm to lower the L arm, otherwise he gets sharp shocking pain in the shoulder joint. He denies locking or catch or locking of the shoulder. Neck pain is rated 3/10 and at worst 5/ 10, L shoulder pain is 5/10. Prior Treatments and Tests Record review indicates report of partial L shoulder rotator cuff tear. Future Testing and Treatments Planned No scheduled follow up visit with referring physician, Dr. Hoang. Treatment Goals Patient/Caregiver Goals Pt goal is: Learn what to do to prevent neck pain from geting worse. L shoulder goal to use the arm with less pain. Prior Functional Status Baseline Function- ADL's Independent Baseline Function- Mobility Independent Baseline Function- Recreation/Hobbies Able to hold and use chain saw for 3-6 hours. Baseline Function- Other Can only lift arm to shoulder height after neck surgery. No pain with lowering L arm holding a towel before surgery , not able to do after the surgery. Current Functional Impairments (Reported) Functional Limitations- ADL's Now have shocking pain when lowering the L arm after reaching upward. Intermittent neck pain. Personal Factors Other Personal Factors That May Effect Pt lives alone, recently Therapy/Recovery . Significant PMH (see Precautions above) PT-OP-C Subjective Start: 12/25/20 19:24 Freq: Status: Active Protocol: Document 01/29/21 11:20 LRN (Rec: 01/29/21 12:08 LRN [id number]) OP-PT Subjective Patient Comments Patient Comments States shoulder feels fine, neck still bothers with pain level 5-6/10, it pretty much goes away when stopping working. Feel neck when sleeping wrong or when bending over. PT-OP-E Functional Tests Start: 12/25/20 19:24 Freq: Status: Active Protocol: Document 01/01/21 13:42 LRN (Rec: 01/01/21 14:33 LRN [id number]) Functional Tests Apley's Scratch Test Action 1- Left Anterior R shoulder (pec minor ) Action 1- Right Behind the shoulder/neck Action 2- Left T2 Action 2- Right T2 Action 3- Left T6 Action 3- Right L2 PT-OP-H Neuro Start: 12/25/20 19:24 Freq: Status: Active Protocol: Document 01/01/21 13:42 LRN (Rec: 01/01/21 14:33 LRN [id number]) Sensation Evaluation Gross Sensation Gross Sensation WNL PT-OP-J Posture/Palpation/Skin Start: 12/25/20 19:24 Freq: Status: Active Protocol: Document 01/01/21 13:42 LRN (Rec: 01/01/21 14:33 LRN [id number]) Posture Evaluation Position Standing Head/C-Spine Posture Forward Head T-Spine Posture Flattened Shoulder Posture (R) Rounded,(R) Forward Comments Posture Comments R UT muscle tightness. Palpation Assessment Location L Posterior Deltoid & Supraspinatus Palpation Location Posterior Deltoid & Supraspinatus Palpation Details Muscle Atrophy Neck Palpation Location Subacromial, Upper trapezius Palpation Findings Muscle Guarding L shoulder Palpation Location Posterior aspect of Acrominon, subacromial, and anterior shoulder Palpation Findings Tenderness PT-OP-K Range of Motion Start: 12/25/20 19:24 Freq: Status: Active Protocol: Document 01/29/21 11:20 LRN (Rec: 01/29/21 12:08 LRN [id number]) Shoulder Goniometric Range of Motion Shoulder Right Active Testing Position Sitting Flexion 158 Abduction 180 Internal Rotation Behind Back (text) L2 Left Active Testing Position Sitting Flexion 165 Abduction 180 External Rotation at 0 degrees Abduction 48 Internal Rotation Behind Back (text) T8 PT-OP-L Special Tests Start: 12/25/20 19:24 Freq: Status: Active Protocol: Document 01/01/21 13:42 LRN (Rec: 01/01/21 14:33 LRN [id number]) Special Tests Shoulder Special Tests Drop Arm Rotator Cuff Test Results Positive bilaterally Comments Rotator cuff dysfunction Belly Press Test Results Negative bilaterally PT-OP-M Strength Start: 12/25/20 19:24 Freq: Status: Active Protocol: Document 01/01/21 13:42 LRN (Rec: 01/01/21 14:33 LRN [id number]) Cervical Spine Strength Cervical Spine Manual Muscle Testing Testing Position Sitting Shoulder Strength Shoulder Manual Muscle Testing Right Flexion 3+ Fair+ Abduction (C5) 3 Fair External Rotation 4+ Good+ Internal Rotation 5 Normal Left Flexion 3- Fair- Abduction (C5) 3- Fair- External Rotation 4- Good- Internal Rotation 5 Normal Elbow/Forearm Strength Elbow and Forearm Manual Muscle Testing Right Flexion (C6) 5 Normal Extension (C7) 5 Normal Left Flexion (C6) 5 Normal Extension (C7) 4- Good- PT-OP-Q Treatments Start: 12/25/20 19:24 Freq: Status: Active Protocol: Document 01/29/21 11:20 LRN (Rec: 01/29/21 12:08 LRN [id number]) Cardio Equipment Upper Body Ergometer (UBE) Duration (Minutes) 10 RPM 70 Seat Position 12 Height 3 Other 2' back/fwd Therapeutic Exercises Sitting Exercises Trunk rot Sitting Exercise Name Trunk Rot Reps/Minutes 5' C. Gideon ex Sitting Exercise Name C. Isometric ext, SB, rot in semi-reclined Reps/Minutes 8' C AROM Sitting Exercise Name C. AROM: ext, rotation Side bilateral Reps/Minutes 3' Shoulder AB Sitting Exercise Name Active shoulder AB Side bilateral Reps/Minutes 4' Manual Therapy Treatment Soft Tissue Mobilization Cervical posterior paraspinals Body Location Cervical posterior paraspinals Mobilization Type Strumming,Sustained Pressure Intensity/Depth Superficial > Moderate Body Position Semi-reclined supine Comments Some complaints of suboccipital pain. Anterior Scalenes Body Location Anterior Scalenes Mobilization Type Strumming,Sustained Pressure Intensity/Depth Superficial Body Position Semi-reclined supine Comments Some complaints of Lateral neck and ear pain. PT-OP-R Modalities Start: 12/25/20 19:24 Freq: Status: Active Protocol: Document 01/06/21 11:20 LRN (Rec: 01/06/21 12:26 LRN [id number]) Hot Pack/Cold Pack Treatment Cold Pack Location Bilateral shoulders Treatment Duration (minutes) 10 Comments Position: Semi-reclined. PT-OP-T Assessment and Plan Start: 12/25/20 19:24 Freq: Status: Active Protocol: Document 01/29/21 11:20 LRN (Rec: 01/29/21 12:08 LRN [id number]) Physical Therapy Assessment Goals Three Impairment Neck pain Short Term Goal (STG) Pt will be educated in self care neck stabilization and AROM exercises. (01/13/21: HEP issued for C. isometrics, and C. AROM ext & rot) STG Duration 01/31/21 (01/13/21: GOALS MET) [employer] Goal (LTG) Decrease onset of neck pain and decrease pain to 3/10. LTG Duration 03/02/21 Two Impairment L shoulder pain. Short Term Goal (STG) Pt will be independent on home rotator cuff and shoulder stabilizing exercises. (01/06/21: HEP: STRENGTHENING: TBand: *Shoulder ER, * Shoulder IR, *Scapular retract , *Row STRENGTHENING: TBand: *Shoulder ER, *Shoulder IR, * Scapular retract, *Row) STG Duration 01/31/21 (01/08/21: MET GOAL, Initial HEP) [employer] Goal (LTG) Pt will be able to use the L arm with less shoulder pain on lowering the arm from shoulder height. (01/15/21: No pain on return from AB on L shoulder). LTG Duration 03/02/21 (01/15/21: MET GOAL) One Impairment Lacks self care HEP [facility] Goal (LTG) Pt will be independent in a self care HEP of neck and shoulder exercises to prevent pain from worsening. HEP TO DATE: STRENGTHENING: TBand: SHOULDERS: * ER, * IR , *Row, *Ext w/TB. SCAPULA: *Retract. NECK: GIDEON: *flex, *ext, *SB, *rot. AROM: *Rot & *Ext. LTG Duration 03/02/21 (01/13/21: Progressing) Progress Towards Goals Progress Towards Goals Slow Progress due to Activity Tolerance Progress Comments Today deep cervical neck strengthening was limited due to onset of pain Assessment Summary Assessment Pt shoulders show very good AROM with minimal pain from AB . Assess pain with return from flexion. Pt neck is primary area of variable pain. He has pain first in AM and with bending over; probably from strain on neck extensors. The pt has neck pain with strengthening of his deep cervical neck flexors, showing low tolerance due to pain. Massage may be benefical to help decrease his pain since the anterior neck muscles are tight and pt is not able to stretch them due to his cervical fusion. Physical Therapy Plan Frequency and Duration Frequency of Treatment 2x/Week Plan of Care Start Date 01/01/21 Plan of Care End Date 03/02/21 Next Visit Focus/Plan Next Note Type Treatment Note Next Visit Plan Recheck painfree AROM of shoulders. Focus treatment on Neck/Back STM to see if ROM/ strengthening neck pain can be reduced following STM. If no change, then pain is probably due to strain; therefore would recommend massage therapy for post activity pain management. If pt able to lower arms with mild to no pain from overhead (flex, AB); DC to HEP. US to subacromial region, STM to neck/shoulders, or ice if needed.
--- NOTE | 2021-02-03 12:30 | PT.OTN ---
Current Diagnoses Primary osteoarthritis, left shoulder (02/03/21) Spinal stenosis, cervical region (02/03/21) Incomplete rotator cuff tear or rupture of left shoulder, not specified as traumatic (02/03/21) Physical Therapy Treatment Note PT-OP-A Visit Information Start: 12/25/20 19:24 Freq: Status: Active Protocol: Document 02/03/21 11:10 LRN (Rec: 02/03/21 12:28 LRN [id number]) Out-Patient Physical Therapy Visit Information Visit Information Visit Type Treatment Note Visit Start Time 11:15 Visit Stop Time 12:00 Total Visit Minutes 45 Visit Number 8 Evaluation Information Evaluation Date 01/01/21 Precautions Precautions Paroxysmal A. Fib - uncontrolled, Type II Diabetes, Cervical anterior fusion of C3 , C4, C5, C6 - 8 yrs ago, Essential HTN, Hypothyroidism, Hernia repair. PT-OP-B Current Condition Start: 12/25/20 19:24 Freq: Status: Active Protocol: Document 01/01/21 13:42 LRN (Rec: 01/01/21 14:33 LRN [id number]) Current Condition History of Current Condition Onset Date 8 yrs ago after cervical fusion Current Complaints Unable to lower L arm after lifting due to L shoulder pain , & neck pain. History of Current Condition Posterior neck and L shoulder pain onset after anterior cervical fusion C3-C6. Can sit in recliner chair, without neck pain, if pillow placed behind his head to prevent neck from tiring. States he can move his head around for exercise. He states his L shoulder pain is worse than the neck pain. He can only lie down on L side if he doesn 't lie entirely on his side, and he reports shooting pain in the shoulder with reaching upward, and he requires support of opposite arm to lower the L arm, otherwise he gets sharp shocking pain in the shoulder joint. He denies locking or catch or locking of the shoulder. Neck pain is rated 3/10 and at worst 5/ 10, L shoulder pain is 5/10. Prior Treatments and Tests Record review indicates report of partial L shoulder rotator cuff tear. Future Testing and Treatments Planned No scheduled follow up visit with referring physician, Dr. Hoang. Treatment Goals Patient/Caregiver Goals Pt goal is: Learn what to do to prevent neck pain from geting worse. L shoulder goal to use the arm with less pain. Prior Functional Status Baseline Function- ADL's Independent Baseline Function- Mobility Independent Baseline Function- Recreation/Hobbies Able to hold and use chain saw for 3-6 hours. Baseline Function- Other Can only lift arm to shoulder height after neck surgery. No pain with lowering L arm holding a towel before surgery , not able to do after the surgery. Current Functional Impairments (Reported) Functional Limitations- ADL's Now have shocking pain when lowering the L arm after reaching upward. Intermittent neck pain. Personal Factors Other Personal Factors That May Effect Pt lives alone, recently Therapy/Recovery . 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 States after last session had no lasting pain in the neck. Uses Alleve to get pain under control but gets up hurting all over. Can sleep on L shoulder, but it wakes him up. Patient Questionnaires Neck Disability Index NDI Score 28 Quick Dash- Upper Extremity Quick Dash UE Score 29.54 Quick Dash UE Impairment 20 to 39% Impaired (Score 20- 39) OP-PT Pain Assessment Pain Assessment Grid Paper Pain Assessment Grid Completed Yes Location Neck Pain Location Details Suboccipital bilaterally Intensity 3 Scale Used Numeric (0 - 10) L shoulder Pain Location Details L Posterior acromion to anterior shoulder (Biceps tendon) Intensity 1 Scale Used Numeric (0 - 10) PT-OP-E Functional Tests Start: 12/25/20 19:24 Freq: Status: Active Protocol: Document 01/01/21 13:42 LRN (Rec: 01/01/21 14:33 LRN [id number]) Functional Tests Apley's Scratch Test Action 1- Left Anterior R shoulder (pec minor ) Action 1- Right Behind the shoulder/neck Action 2- Left T2 Action 2- Right T2 Action 3- Left T6 Action 3- Right L2 PT-OP-H Neuro Start: 12/25/20 19:24 Freq: Status: Active Protocol: Document 01/01/21 13:42 LRN (Rec: 01/01/21 14:33 LRN [id number]) Sensation Evaluation Gross Sensation Gross Sensation WNL PT-OP-J Posture/Palpation/Skin Start: 12/25/20 19:24 Freq: Status: Active Protocol: Document 01/01/21 13:42 LRN (Rec: 01/01/21 14:33 LRN [id number]) Posture Evaluation Position Standing Head/C-Spine Posture Forward Head T-Spine Posture Flattened Shoulder Posture (R) Rounded,(R) Forward Comments Posture Comments R UT muscle tightness. Palpation Assessment Location L Posterior Deltoid & Supraspinatus Palpation Location Posterior Deltoid & Supraspinatus Palpation Details Muscle Atrophy Neck Palpation Location Subacromial, Upper trapezius Palpation Findings Muscle Guarding L shoulder Palpation Location Posterior aspect of Acrominon, subacromial, and anterior shoulder Palpation Findings Tenderness PT-OP-K Range of Motion Start: 12/25/20 19:24 Freq: Status: Active Protocol: Document 02/03/21 11:10 LRN (Rec: 02/03/21 12:28 LRN [id number]) Shoulder Goniometric Range of Motion Shoulder Right Active Testing Position Sitting Flexion 155 Abduction 155 Internal Rotation Behind Back (text) L2 Left Active Testing Position Sitting Flexion 165 Abduction 180 Internal Rotation Behind Back (text) T8 PT-OP-L Special Tests Start: 12/25/20 19:24 Freq: Status: Active Protocol: Document 01/01/21 13:42 LRN (Rec: 01/01/21 14:33 LRN [id number]) Special Tests Shoulder Special Tests Drop Arm Rotator Cuff Test Results Positive bilaterally Comments Rotator cuff dysfunction Belly Press Test Results Negative bilaterally PT-OP-M Strength Start: 12/25/20 19:24 Freq: Status: Active Protocol: Document 01/01/21 13:42 LRN (Rec: 01/01/21 14:33 LRN [id number]) Cervical Spine Strength Cervical Spine Manual Muscle Testing Testing Position Sitting Shoulder Strength Shoulder Manual Muscle Testing Right Flexion 3+ Fair+ Abduction (C5) 3 Fair External Rotation 4+ Good+ Internal Rotation 5 Normal Left Flexion 3- Fair- Abduction (C5) 3- Fair- External Rotation 4- Good- Internal Rotation 5 Normal Elbow/Forearm Strength Elbow and Forearm Manual Muscle Testing Right Flexion (C6) 5 Normal Extension (C7) 5 Normal Left Flexion (C6) 5 Normal Extension (C7) 4- Good- PT-OP-Q Treatments Start: 02/25/21 19:24 Freq: Status: Active Protocol: Document 02/03/21 11:10 LRN (Rec: 02/03/21 12:28 LRN [id number]) Cardio Equipment Upper Body Ergometer (UBE) Duration (Minutes) 10 RPM 70 Seat Position 12 Height 3 Other 5' back/fwd Therapeutic Exercises Standing Exercises Shoulder AROM Standing Exercise Name Flex/AB Side bilateral Comments ROM taken Shoulder Ext Standing Exercise Name Shoulder Ext Side bilateral Reps/Minutes 3' Shoulder IR Standing Exercise Name Shoulder IR Side left Equipment Used Lev 2 Reps/Minutes 15x 2 Shoulder ER Standing Exercise Name Shoulder ER Side bilateral Equipment Used Lev 2 TB Reps/Minutes 6' Manual Therapy Treatment Soft Tissue Mobilization UT Body Location R > L UT Mobilization Type Trigger Point Release Intensity/Depth Moderate Comments Multiple trigger points presesnt. R Lev Scapula Body Location R Lev Scapula Mobilization Type Trigger Point Release Intensity/Depth Moderate Body Position Supine Cervical posterior paraspinals Body Location Cervical posterior paraspinals Mobilization Type Strumming,Sustained Pressure Intensity/Depth Superficial > Moderate Body Position Semi-reclined supine Comments Some complaints of suboccipital pain. Self-Care/Home Management Treatment Education Patient Education Home Exercise Program Activities Self-Care/Home Management Activities Reviewed pt's self long term program. PT-OP-R Modalities Start: 12/25/20 19:24 Freq: Status: Active Protocol: Document 01/06/21 11:20 LRN (Rec: 01/06/21 12:26 LRN [id number]) Hot Pack/Cold Pack Treatment Cold Pack Location Bilateral shoulders Treatment Duration (minutes) 10 Comments Position: Semi-reclined. PT-OP-T Assessment and Plan Start: 12/25/20 19:24 Freq: Status: Active Protocol: Document 02/03/21 11:10 LRN (Rec: 02/03/21 12:28 LRN [id number]) Physical Therapy Assessment Goals Three Impairment Neck pain Short Term Goal (STG) Pt will be educated in self care neck stabilization and AROM exercises. (01/13/21: HEP issued for C. isometrics, and C. AROM ext & rot) STG Duration 01/31/21 (01/13/21: GOALS MET) Back Winder Goal (LTG) Decrease onset of neck pain and decrease pain to 3/10. LTG Duration 03/02/21 (02/03/21: MET GOAL) Two Impairment L shoulder pain. Short Term Goal (STG) Pt will be independent on home rotator cuff and shoulder stabilizing exercises. (01/06/21: HEP: STRENGTHENING: TBand: *Shoulder ER, * Shoulder IR, *Scapular retract , *Row STRENGTHENING: TBand: *Shoulder ER, *Shoulder IR, * Scapular retract, *Row) STG Duration 01/31/21 (01/08/21: MET GOAL) Back Winder Goal (LTG) Pt will be able to use the L arm with less shoulder pain on lowering the arm from shoulder height. (01/15/21: No pain on return from AB on L shoulder). LTG Duration 03/02/21 (01/15/21: MET GOAL) One Impairment Lacks self care HEP Back Winder Goal (LTG) Pt will be independent in a self care HEP of neck and shoulder exercises to prevent pain from worsening. HEP TO DATE: STRENGTHENING: TBand: SHOULDERS: * ER, * IR , *Row, *Ext w/TB. SCAPULA: *Retract. NECK: YOUSUF: *flex, *ext, *SB, *rot. AROM: *Rot & *Ext. LTG Duration 03/02/21 (02/02/21: MET GOAL) Progress Towards Goals Progress Comments Function mildly improved from score 36.36 to 29. 54 (20 to 39% Impaired (Score 20-39)). Neck pain is 3/5 (was 5/5) Shoulder pain is 1/5 (was 5/5) . Assessment Summary Assessment Pt presents with pain free L shoulder ROM with raising and lowering the arm from flex and AB. Today he is having more discomfort from his R shoulder with lowering his arm. The pt demonstrated good knowledge of his HEP with review of exercises. He has weakness in his neck muscles due to pain limitations with strengtheniing. He appears to have good knowledge of his physical limitations and takes appropriate rests as needed. Occasioinal massage to the neck and shoulders would probably be beneficial in helping the pt manage his cervical pain. The pt is ready for discharge to his self care HEP. Physical Therapy Plan Discharge Physical Therapy Discharge Reasons Goals Met Discharge Comments Thank you for your referral.
== END 2021-02-04 08:20 | disposition home or self-care (01) ==
LOC: PHYS 11:15
PROVIDERS: Family Provider Internal Medicine; PCP Internal Medicine; Referring Provider Orthopaedic Surgery; Visit Provider Orthopaedic Surgery
DX: M48.02 Spinal stenosis, cervical region (principal); M19.012 Primary osteoarthritis, left shoulder; M75.112 Incomplete rotator cuff tear or rupture of left shoulder, not specified as traumatic
CPT/HCPCS: 97110; 97140; 97162; 97535

== ENCOUNTER → 2021-02-03 13:45 | Outpatient (CLI) | payer MEDICARE, BC, SELFPAY ==
--- NOTE | 2021-02-03 15:17 | DIET.PN ---
Diabetes: Healthy Eating 1 Intervention: ? Discussed pathophysiology of diabetes and impact of nutrition/diet on blood sugar control.? Discussed fed versus non-fed state.?? ? Reviewed importance of Balance, Variety, and Moderation. ? Discussed the effect of carbohydrates/protein/fat on blood sugar control.? ? Stressed importance of consistent carbohydrate intake at each meal and provided instructions for recommended servings/portions of carbohydrates/protein per meal. Provided educational material. ? Reviewed carbohydrate counting and measuring carbohydrate content via serving sizes and reading nutrition labels.? Provided handouts.?? ? Discussed the difference between simple versus complex carbohydrates and the effect of fiber on blood sugar control.? Discussed various methods to increase fiber content in diet. ? Discussed the plate method for creating more carbohydrate conscious balanced meals. ? Stressed importance of meal timing and not going >4-5 hours between meals. Encouraged adding protein to evening snack to support glucose control overnight. ? Discussed importance of making dietary habits part of lifestyle change.
== END ==
PROVIDERS: Family Provider Internal Medicine; PCP Internal Medicine; Referring Provider Internal Medicine; Visit Provider Internal Medicine
DX: E11.9 Type 2 diabetes mellitus without complications (principal); Z71.3 Dietary counseling and surveillance
CPT/HCPCS: G0109

== ENCOUNTER → 2021-02-10 13:40 | Outpatient (CLI) | payer MEDICARE, BC, SELFPAY ==
--- NOTE | 2021-02-10 15:56 | DIET.PN ---
Diabetes: Healthy Eating 2 Intervention: Fats effects on glucose, weight, heart disease, cholesterol Sat Vs Unsat Protein- animal and plant based options Low, med, high fat meats Sugar substitutes Sodium Health claims Grocery shopping guidelines Eating away from home Alcohol Sick day guidelines Ketone Testing
== END ==
PROVIDERS: Family Provider Internal Medicine; PCP Internal Medicine; Referring Provider Internal Medicine; Visit Provider Internal Medicine
DX: E11.9 Type 2 diabetes mellitus without complications (principal); Z71.3 Dietary counseling and surveillance
CPT/HCPCS: G0109

== ENCOUNTER → 2021-04-08 12:08 | Outpatient (CLI) | payer MEDICARE, BC, SELFPAY ==
[2021-04-08 13:15] LABS: Hemoglobin A1C% w Est Avg Glu 7.2 % (4.0-6.0)
[2021-04-08 13:16] LABS: BUN Creatinine Ratio 25.4 (6-22); Blood Urea Nitrogen 17 mg/dL (9-20); Calcium 9.6 mg/dL (8.4-10.2); Carbon Dioxide 23 mmol/L (22-32); Chloride 108 mmol/L (98-107); Estimated Glomerular Filt Rate > 60.0 mL/min (>60); Glucose 118 mg/dL (80-110); HEMOLYSIS < 15 (0-50); Potassium 4.2 mmol/L (3.4-5.1); Sodium 138 mmol/L (137-145)
== END ==
PROVIDERS: Family Provider Internal Medicine; PCP Internal Medicine; Referring Provider Internal Medicine; Visit Provider Internal Medicine
DX: E11.65 Type 2 diabetes mellitus with hyperglycemia (principal); I10 Essential (primary) hypertension; I48.0 Paroxysmal atrial fibrillation
CPT/HCPCS: 36415; 80048; 83036

== ENCOUNTER 2021-04-10 15:15 | Emergency (ER) | payer MEDICARE, BC, SELFPAY ==
[2021-04-10 15:21] VITALS: PULSE 75; RESP 17; O2SAT 96
[2021-04-10 15:23] VITALS: BP 126/91; PULSE 76; RESP 18; TEMP 36.3; O2SAT 96; BMI 29.2
--- NOTE | 2021-04-10 15:27 | DI.RAD.S_ITS ---
PROCEDURE: XR CHEST 1V INDICATIONS: Chest pain TECHNIQUE: One view of the chest was acquired. COMPARISON: None. FINDINGS: Surgical changes and devices: None. Lungs and pleura: Lungs are clear. No pleural effusions or pneumothorax. Mediastinum: Mediastinal contours appear normal. Heart size is normal. Bones and chest wall: No suspicious bony lesions. Overlying soft tissues appear unremarkable. IMPRESSION: No acute cardiopulmonary process demonstrated radiographically. Dictated by: Kumar Richter M.D. on 04/10/2021 at 16:13 Approved by: Kumar Richter M.D. on 04/10/2021 at 16:13
--- NOTE | 2021-04-10 15:28 | ED_ITS ---
HPI - Weakness General Chief complaint: Weakness Stated complaint: WEAKNESS FAINTING Time Seen by Provider: 04/10/21 15:28 Source: patient Mode of arrival: Ambulatory Limitations: no limitations History of Present Illness HPI Narrative: 70M nonsmoker with a history of diabetes, hypertension and PVCs presents with upwards of 6 months of occasional dizziness, light headedness and fluttering in his chest. He denies any new symptoms but states he was unable to get a hold of his primary care doctor so he came here. He is not currently dizzy and denies any blurred vision, trouble speech or trouble ambulating. He denies any chest pain or shortness of breath. He denies any fever or chills. He has had no nausea, vomiting or diarrhea. He denies any dysuria, frequency or urgency. Denies any recent medication change or dietary change. He states that he thinks he symptoms probably started when he started taking glipizide a few months ago MD Complaint: generalized weakness Onset (ago): month(s) Duration: intermittent Location: generalized Severity: moderate Relieving factors: none Exacerbating factors: none Related Data Home Medications Medication Instructions Recorded Confirmed clindamycin phosphate 1 applic TOPICAL DIRECTED 09/25/19 02/23/21 Previous Rx's Medication Instructions Recorded glipizide 5 mg tablet 5 mg PO BID #60 tab 10/21/20 metoprolol succinate 50 mg 50 mg PO DAILY #30 tab 03/20/21 tablet,extended release 24 hr blood sugar diagnostic #100 ea 04/03/21 blood-glucose meter #1 ea 04/03/21 lancets #100 ea 04/03/21 Allergies Allergy/AdvReac Type Severity Reaction Status Date / Time metformin AdvReac Intermediate unkown Verified 04/10/21 15:26 Review of Systems Constitutional Constitutional: Denies chills, Reports fatigue, Denies fever(s), Denies frequent falls, Denies lethargy and Denies weakness Eyes Eyes: Denies change in vision, Denies eye discharge, Denies irritation and Denies loss of vision ENT Ears, Nose, Mouth, and Throat: Denies change in voice, Reports dizziness, Denies neck pain, Denies sore throat and Denies throat swelling Cardiovascular Cardiovascular: Denies chest pain, Denies irregular heart rhythm, Denies lightheadedness, Denies palpitations, Denies dyspnea, Denies dyspnea on exertion and Denies orthopnea Respiratory Respiratory: Denies cough, Denies dyspnea, Denies dyspnea on exertion and Denies wheezing Gastrointestinal Gastrointestinal: Denies abdominal pain, Denies change in bowel habits, Denies diarrhea, Denies nausea and Denies vomiting Musculoskeletal Musculoskeletal: Denies neck pain and Denies numbness Integumentary/Breasts Skin/Breast: Denies pruritus, Denies erythema, Denies rash and Denies wounds Neurologic Neurologic: Denies behavioral changes, Denies confusion, Reports dizziness, Denies frequent falls, Denies loss of vision, Denies numbness and Denies weakness Psychiatric Psychiatric: Denies anxiety, Denies behavioral changes, Denies confusion, Denies depression, Denies homicidal ideation and Denies suicidal ideation Endocrine Endocrine: Reports fatigue, Denies flushing and Denies palpitations Hematologic/Lymphatic Hematologic/Lymphatic: Denies easy bruising Allergic/Immunologic Allergic/Immunologic: Denies urticaria, Denies throat swelling and Denies wheezing Patient History Medical History Atrial fibrillation (03/12/14) Chronic cholecystitis Esophageal dysmotility Essential hypertension (11/16/17) Hyperlipidemia Hypothyroidism Paroxysmal atrial fibrillation 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/17) Type 2 diabetes mellitus without complication (11/16/17) Unspecified asthma (06/08/11) Surgical History History of carpal tunnel repair History of knee replacement Status post cholecystectomy Status post hernia repair Family History Mother Hypertension Gallstones Father Hypertension Cancer Grandmother Hypertension Heart disease Cancer Social History marital status: number of children: 1 household members: spouse lives independently: Yes caregiver/support person: No housing: house pets and animals: No education level: college occupational status: other (Retired) current occupational exposures/hazards: No 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 Well- developed patient, in mild distress. HEAD: Atraumatic. Normocephalic. EYES: Pupils equal round and reactive. Extraocular motions intact. No scleral icterus. No injection or drainage. ENT: Nose without bleeding, purulent drainage. Throat without erythema, tonsillar hypertrophy or exudate. Airway patent. NECK: Trachea midline. Non tender CARDIOVASCULAR: Regular rate and rhythm without murmurs, gallops, or rubs. RESPIRATORY: Clear to auscultation. Breath sounds equal bilaterally. No wheezes, rales, or rhonchi. GASTROINTESTINAL: Abdomen soft, non-tender, nondistended. EXTREMITIES: No edema or joint tenderness. BACK: Nontender without deformity or crepitance. No flank tenderness. NEURO: AOx3. SKIN: No rash or erythema of visible areas NIH Stroke Scale 1a. LOC: Patient is alert and keenly responsive (0) 1b. LOC Questions: Patient answers both LOC questions accurately (0) 1c. LOC Commands: Patient performs both tasks correctly (0) 2. Best Gaze: Normal (0) 3. Visual: No visual loss (0) 4. Facial palsy: Normal symmetrical movements (0) 5. Motor arm: No drift (0) 6. Motor leg: No drift (0) 7. Limb ataxia: Absent (0) 8. Sensory: Normal (0) 9. Best language: No aphasia; normal (0) 10. Dysarthria: Normal (0) 11. Extinction and inattention: No abnormality (0) NIHSS: 0 Initial Vital Signs Initial Vital Signs: Vital Signs Pulse Rate 75 04/10/21 15:21 Respiratory Rate 17 04/10/21 15:21 Pulse Oximetry 96 04/10/21 15:21 Course Orders Ordered: ED Orders 04/10/21 15:27 XR chest 1V Stat Complete Blood Count AUTO DIFF Stat Comprehensive Metabolic Panel Stat Lipase Stat Troponin & CK Cardiac Panel Stat EKG-12 Lead Stat Vital Signs Vital signs: Vital Signs - 8 hr 04/10/21 15:23 Temperature 97.4 F L Pulse Rate 76 Respiratory Rate 18 Blood Pressure 126/91 H Pulse Oximetry 96 MDM - Weakness Lab Data Result diagrams: 04/10/21 15:35 04/10/21 15:35 Labs: Lab Results 04/10/21 04/10/21 Range/Units 15:35 15:35 WBC 4.9 (4.5-11.0) X10^3/uL RBC 4.54 (4.5-5.9) X10^6/uL Hgb 16.0 (13.5-17.5) g/dL Hct 46.4 (41-53) % MCV 102.2 H (80-100) fL MCH 35.3 H (26-34) PG MCHC 34.5 (30-36) % RDW 13.6 (11.6-14.8) % Plt Count 161 (150-400) X10^3/uL Neut % (Auto) 65.3 (50-75) % Lymph % (Auto) 21.3 L (25-40) % Maries % (Auto) 9.8 (3-14) % Eos % (Auto) 2.8 (2-4) % Baso % (Auto) 0.8 (0-2) % Neut # (Auto) 3200 (5029-1881) /uL Lymph # (Auto) 1100 (4128-1573) /uL Maries # (Auto) 500 (0-900) /uL Eos # (Auto) 100 (0-450) /uL Baso # (Auto) 0 (0-100) /uL Sodium 136 L (137-145) mmol/L Potassium 3.7 (3.4-5.1) mmol/L Chloride 104 (98-107) mmol/L Carbon Dioxide 24 (22-32) mmol/L BUN 17 (9-20) mg/dL Creatinine 0.68 (0.66-1.25) mg/dL Estimated GFR > 60.0 (>60) mL/min BUN/Creatinine Ratio 25.0 H (6-22) Glucose 190 H (80-110) mg/dL Calcium 9.5 (8.4-10.2) mg/dL Total Bilirubin 0.6 (0.2-1.3) mg/dL AST 35 (17-59) IU/L ALT 27 (<50) IU/L Alkaline Phosphatase 82 (38-126) U/L Total Creatine Kinase 79 (55-170) U/L CK-MB (CK-2) TNP CK-MB (CK-2) Rel Index TNP Troponin I < 0.012 (0.01-0.034) ng/mL Total Protein 7.0 (6.3-8.2) g/dL Albumin 4.2 (3.5-5.0) g/dL Globulin 2.8 (1.7-4.1) g/dL Albumin/Globulin Ratio 1.5 (1.0-2.8) Lipase 122 (23-300) U/L ECG Data Interpretation: Normal sinus rhythm with rate of 70, NE 140, QRS 98, occasional PVCs. No ST segmental elevation or depression. No T-wave inversions or hyper acuity. MDM Narrative Medical decision making narrative: Multiple etiologies for patient's symptoms considered including: [Side effect of glipizide versus occasional hypoglycemia versus symptomatic PVCs versus other] Patient's symptoms improved over duration of stay with above-stated therapies. Findings and discharge diagnosis discussed with patient/family followed by verbalization of understanding Return precautions discussed with patient/family whom verbalize understanding. Discharge Plan Departure Patient Disposition: Home Clinical Impression: Frequent unifocal PVCs Fatigue Qualifiers: Fatigue type: chronic, unspecified Qualified Code(s): R53.82 - Chronic fatigue, unspecified Activity Restrictions/Additional Instructions: *You have been diagnosed with [chronic fatigue and dizziness, could certainly be a consequence of your medications or dietary change. Today your physical exam, labs, EKG are very reassuring] *What to do: *Please continue to take your regular medications as directed. [ ] New medication prescriptions sent to your pharmacy: [ ] [ ] New medication written as a paper prescription [x ] No new medications given *Please follow up with your primary care provider in 2-3 days, call for an appointment. Let them know you were seen in the Emergency Department and that we ask that you be seen in follow up. We will electronically transmit a record of dru navas's note if your PCP is in our system *If you do not have a primary care provider please contact the [facility] Resource line at [phone]. They will ask some questions about your medical history and help get you set up with a doctor in the community. *Return to Emergency Department if you should have any new, worsening or concerning symptoms, such as [fever greater than 101 F, shaking chills, worsening pain, persistent vomiting or other bothersome symptoms] Prescriptions: No Action glipizide 5 mg tablet 5 mg PO BID Qty: 60 RF: 5 metoprolol succinate 50 mg tablet extended release 24 hr 50 mg PO DAILY Qty: 30 RF: 3 (DME) blood-glucose meter Misc See Rx Instructions .ROUTE .MEDSUPPLY Qty: 1 RF: 0 (DME) Blood Glucose Test Strip See Rx Instructions .ROUTE .MEDSUPPLY Qty: 100 RF: 3 (DME) lancets Misc See Rx Instructions .ROUTE .MEDSUPPLY Qty: 100 RF: 0 clindamycin phosphate 1 % solution 1 applic TOPICAL DIRECTED RF: 0 Referrals: Tripp Spears MD [Primary Care Provider] -
[2021-04-10 15:30] VITALS: BP 103/70; PULSE 71; RESP 17; O2SAT 94
[2021-04-10 15:44] LABS: Add Manual Diff / Slide Review NO; Basophils Absolute Auto 0 /uL (0-100); Basophils Percent Auto 0.8 % (0-2); Eosinophils Absolute Auto 100 /uL (0-450); Eosinophils Percent Auto 2.8 % (2-4); Hematocrit 46.4 % (41-53); Lymphocytes Absolute Auto 1100 /uL (1100-4500); Lymphocytes Percent Auto 21.3 % (25-40); Mean Corpuscular HGB Conc 34.5 % (30-36); Mean Corpuscular Hemoglobin 35.3 PG (26-34); Mean Corpuscular Volume 102.2 fL (80-100); Monocytes Absolute Auto 500 /uL (0-900); Monocytes Percent Auto 9.8 % (3-14); Neutrophils Absolute Auto 3200 /uL (1500-7000); Neutrophils Percent Auto 65.3 % (50-75); Platelet Count 161 X10^3/uL (150-400); Red Blood Cell Count 4.54 X10^6/uL (4.5-5.9); Red Cell Distribution Width 13.6 % (11.6-14.8); White Blood Cell Count 4.9 X10^3/uL (4.5-11.0)
[2021-04-10 15:56] LABS: Alanine Aminotransferase 27 IU/L (<50); Albumin 4.2 g/dL (3.5-5.0); Albumin Globulin Ratio 1.5 (1.0-2.8); Alkaline Phosphatase 82 U/L (38-126); Aspartate Aminotransferase 35 IU/L (17-59); Bilirubin Total 0.6 mg/dL (0.2-1.3); Blood Urea Nitrogen 17 mg/dL (9-20); Calcium 9.5 mg/dL (8.4-10.2); Carbon Dioxide 24 mmol/L (22-32); Chloride 104 mmol/L (98-107); Creatine Kinase 79 U/L (55-170); Estimated Glomerular Filt Rate > 60.0 mL/min (>60); Globulin 2.8 g/dL (1.7-4.1); Glucose 190 mg/dL (80-110); HEMOLYSIS < 15 (0-50); Lipase 122 U/L (23-300); Potassium 3.7 mmol/L (3.4-5.1); Sodium 136 mmol/L (137-145)
[2021-04-10 16:00] VITALS: BP 116/76; PULSE 75; RESP 28; O2SAT 94
[2021-04-10 16:07] LABS: Troponin I < 0.012 ng/mL (0.01-0.034)
== END 2021-04-10 16:33 | disposition home or self-care (01) ==
PROVIDERS: Emergency Medicine; Emergency Provider Emergency Medicine; Family Provider Internal Medicine; PCP Internal Medicine
DX: I49.3 Ventricular premature depolarization (principal); R53.82 Chronic fatigue, unspecified
CPT/HCPCS: 36415; 71045; 80053; 82550; 83690; 84484; 85025; 93005; 99283; 99284

== ENCOUNTER → 2021-04-29 09:39 | Outpatient (CLI) | payer MEDICARE, BC, SELFPAY | PROVIDERS: Family Provider Internal Medicine; PCP Internal Medicine; Referring Provider Orthopaedic Surgery; Visit Provider Orthopaedic Surgery | DX: M19.012 Primary osteoarthritis, left shoulder (principal); Z53.20 Procedure and treatment not carried out because of patient's decision for unspecified reasons ==

== ENCOUNTER → 2021-07-29 14:57 | Outpatient (CLI) | payer MEDICARE, BC, SELFPAY ==
[2021-07-29 15:47] LABS: Hemoglobin A1C% w Est Avg Glu 8.3 % (4.0-6.0)
[2021-07-29 15:58] LABS: Alanine Aminotransferase 25 IU/L (<50); Albumin 4.1 g/dL (3.5-5.0); Albumin Globulin Ratio 1.6 (1.0-2.8); Alkaline Phosphatase 81 U/L (38-126); Aspartate Aminotransferase 31 IU/L (17-59); BUN Creatinine Ratio 20.8 (6-22); Bilirubin Total 0.7 mg/dL (0.2-1.3); Blood Urea Nitrogen 15 mg/dL (9-20); Carbon Dioxide 26 mmol/L (22-32); Chloride 103 mmol/L (98-107); Estimated Glomerular Filt Rate > 60.0 mL/min (>60); Globulin 2.6 g/dL (1.7-4.1); Glucose 294 mg/dL (80-110); HEMOLYSIS < 15 (0-50); Potassium 3.8 mmol/L (3.4-5.1); Sodium 135 mmol/L (137-145); Total Protein 6.7 g/dL (6.3-8.2)
== END ==
PROVIDERS: Family Provider Internal Medicine; PCP Internal Medicine; Referring Provider Internal Medicine; Visit Provider Internal Medicine
DX: E11.65 Type 2 diabetes mellitus with hyperglycemia (principal); I10 Essential (primary) hypertension
CPT/HCPCS: 36415; 80053; 83036

== ENCOUNTER 2021-09-19 11:39 | Emergency (ER) | payer MEDICARE, BC, SELFPAY ==
[2021-09-19 11:57] VITALS: PULSE 80; RESP 27; O2SAT 95
[2021-09-19 11:58] VITALS: BP 159/87; PULSE 74; RESP 20; O2SAT 94
[2021-09-19 12:00] VITALS: BP 158/97; PULSE 74; PULSE 76; RESP 18; RESP 32; TEMP 36.8; O2SAT 94; O2SAT 95; BMI 29.2
--- NOTE | 2021-09-19 12:11 | DI.RAD.S_ITS ---
PROCEDURE: XR CHEST 1V INDICATIONS: chest pain TECHNIQUE: One view of the chest was acquired. COMPARISON: [facility], CHEST 1 VIEW, 10/08/2017, 13:24. [facility], , XR CHEST 1V, 04/10/2021, 15:52. FINDINGS: Surgical changes and devices: Cervical spine fixation hardware is seen. Prior surgical truncation of the right distal clavicle can be seen. Lungs and pleura: Lungs are clear. No pleural effusions or pneumothorax. Mediastinum: The cardiac contours are within normal limits. The aorta demonstrates calcification and tortuosity. Bones and chest wall: No suspicious bony lesions. Age-appropriate bony degenerative changes are seen. Mild dextroconvex scoliotic curvature is seen. Overlying soft tissues appear unremarkable. IMPRESSION: Portable chest within normal limits for age. Dictated by: Warner Ross M.D. on 09/19/2021 at 11:32 Approved by: Warner Ross M.D. on 09/19/2021 at 11:33
[2021-09-19 12:20] LABS: Add Manual Diff / Slide Review NO; Basophils Absolute Auto 0 /uL (0-100); Basophils Percent Auto 0.7 % (0-2); Eosinophils Absolute Auto 200 /uL (0-450); Eosinophils Percent Auto 2.8 % (2-4); Hematocrit 46.9 % (41-53); Hemoglobin 16.4 g/dL (13.5-17.5); Lymphocytes Absolute Auto 1400 /uL (1100-4500); Lymphocytes Percent Auto 25.6 % (25-40); Mean Corpuscular HGB Conc 34.9 % (30-36); Mean Corpuscular Hemoglobin 35.1 PG (26-34); Mean Corpuscular Volume 100.6 fL (80-100); Monocytes Absolute Auto 500 /uL (0-900); Monocytes Percent Auto 9.4 % (3-14); Neutrophils Absolute Auto 3400 /uL (1500-7000); Neutrophils Percent Auto 61.5 % (50-75); Platelet Count 174 X10^3/uL (150-400); Red Blood Cell Count 4.67 X10^6/uL (4.5-5.9); Red Cell Distribution Width 13.4 % (11.6-14.8); White Blood Cell Count 5.5 X10^3/uL (4.5-11.0)
[2021-09-19 12:27] LABS: Alanine Aminotransferase 34 IU/L (<50); Albumin 4.3 g/dL (3.5-5.0); Albumin Globulin Ratio 1.7 (1.0-2.8); Alkaline Phosphatase 104 U/L (38-126); Aspartate Aminotransferase 40 IU/L (17-59); BUN Creatinine Ratio 15.9 (6-22); Bilirubin Total 1.1 mg/dL (0.2-1.3); Blood Urea Nitrogen 11 mg/dL (9-20); Calcium 9.3 mg/dL (8.4-10.2); Carbon Dioxide 24 mmol/L (22-32); Chloride 99 mmol/L (98-107); Creatine Kinase 65 U/L (55-170); Estimated Glomerular Filt Rate > 60.0 mL/min (>60); Globulin 2.5 g/dL (1.7-4.1); Glucose 369 mg/dL (80-110); HEMOLYSIS < 15 (0-50); Lipase 48 U/L (23-300); Sodium 133 mmol/L (137-145); Total Protein 6.8 g/dL (6.3-8.2)
[2021-09-19 12:30] VITALS: BP 165/109; PULSE 81; RESP 22; O2SAT 95
[2021-09-19 12:35] LABS: NT-proBNP (BNP-Adult 18+) 69 pg/mL (<125)
[2021-09-19 12:39] LABS: Troponin I < 0.012 ng/mL (0.01-0.034)
[2021-09-19 12:50] LABS: COVID19 -Nasal RAPID Negative (Negative)
--- NOTE | 2021-09-19 13:07 | ED.ARRPALP ---
HPI - Arrhythmia/Palpitations General Chief Complaint: Arrhythmia/Palpitations Stated Complaint: Dizzy spells, afib, borderline diabetic Time Seen by Provider: 09/19/21 12:23 Source: patient Mode of arrival: Ambulatory Limitations: no limitations History of Present Illness HPI narrative: The patient has vague symptoms of dizziness. He has a history of AFib. He has periodic palpitations, none at this moment. He is followed by cardiology. Is noted he takes metoprolol. He denies chest pain, or dyspnea at this time. He denies URI symptoms, headache or sore throat. He has no fever. He denies cough or dyspnea. He has no peripheral edema. He is a , with more time injuries resulting in a fractured clavicle, and seirous neck injuries. He require delayed neck surgery, about 9 years ago. His of 47 years 2 years ago. He has moments of depression still associated with her . He is having flashbacks. He has no suicidal or homicidal thoughts. He describes 2 relationships since his 's that have not worked out, not that he has actively being working for relationship. He denies insomnia. He has occasional sad/tearful moments. He feels depressed. We discussed depression. He is not interested in taking medications for depression. Related Data Home Medications Medication Instructions Recorded Confirmed clindamycin phosphate 1 % topical 1 applic TOPICAL DIRECTED 09/25/19 08/04/21 solution Previous Rx's Medication Instructions Recorded metoprolol succinate 50 mg 50 mg PO DAILY #30 tab 03/20/21 tablet,extended release 24 hr blood sugar diagnostic (Blood #100 ea 04/03/21 Glucose Test) blood-glucose meter #1 ea 04/03/21 lancets #100 ea 04/03/21 Allergies Allergy/AdvReac Type Severity Reaction Status Date / Time metformin AdvReac Intermediate unkown Verified 09/19/21 12:00 Review of Systems Constitutional Constitutional: Reports as per HPI, Denies chills, Denies fatigue, Denies fever(s), Denies headache(s) and Denies night sweats Comments: Complains of dizziness. Eyes Eyes: Denies change in vision and Denies diplopia ENT Ears, Nose, Mouth, and Throat: Denies vertigo, Reports dizziness, Denies headache(s) and Denies neck pain Comments: No ENT complaints. See HPI. Cardiovascular Cardiovascular: Denies chest pain, Denies syncope, Reports irregular heart rhythm, Denies leg edema, Reports lightheadedness and Denies dyspnea Respiratory Respiratory: Denies chest congestion, Denies cough and Denies dyspnea Gastrointestinal Gastrointestinal: Denies abdominal pain, Denies nausea and Denies vomiting Genitourinary Comments: No urinary complaints Musculoskeletal Musculoskeletal: Denies back pain, Denies deformity and Denies neck pain Integumentary/Breasts Skin/Breast: Denies pruritus, Denies lesions and Denies rash Neurologic Neurologic: Denies confusion, Denies vertigo, Reports dizziness, Denies syncope, Denies headache(s) and Denies localized weakness Psychiatric Psychiatric: Denies confusion Endocrine Endocrine: Denies fatigue Patient History Medical History Atrial fibrillation (03/12/14) Chronic cholecystitis Esophageal dysmotility Essential hypertension (11/16/17) Hyperlipidemia Hypothyroidism Paroxysmal atrial fibrillation 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/17) Type 2 diabetes mellitus without complication (11/16/17) Unspecified asthma (06/08/11) Surgical History History of carpal tunnel repair History of knee replacement Status post cholecystectomy Status post hernia repair Family History Mother Hypertension Gallstones Father Hypertension Cancer Grandmother Hypertension Heart disease Cancer Social History marital status: number of children: 1 household members: spouse lives independently: Yes caregiver/support person: No housing: house pets and animals: No education level: college occupational status: other (Retired) current occupational exposures/hazards: No 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: None leisure activities: fishing and other (Shooting, working in the [place], gardening.) Smoking Status: Never smoker Tobacco: How many years used: 0 quit status: quit date established (Never Started) second hand exposure: Yes alcohol intake: never substance use type: does not use eating out: 1-3 times/week Type(s) of exercise: other and normal ROM and activity Smoking Status: Never smoker alcohol intake frequency: holidays/special occasions only Substance Use Type: does not use Exam Initial Vital Signs Initial Vital Signs: Vital Signs Pulse Rate 80 09/19/21 11:57 Respiratory Rate 27 H 09/19/21 11:57 Pulse Oximetry 95 09/19/21 11:57 Const General: cooperative, healthy appearing, comfortable, well developed and well groomed [facility] Head: normocephalic and atraumatic Eyes Sclera: sclerae normal Cornea: corneas normal Pupils: PERRL EOM: EOM intact bilaterally Neck Neck: No JVD Thyroid: thyroid normal Resp Auscultation: clear to auscultation bilaterally Cardio Rate: regular rate Rhythm: regular rhythm Heart Sounds: S1 normal, S2 normal and no murmurs Back/Spine/Pelvis Back: No CVA tenderness Skin General: no rashes or lesions noted Neuro General: patient alert, patient awake, patient oriented x3 and no focal motor deficits Extrem General: normal to inspection, full ROM, no pedal edema and no calf tenderness Psych Speech and Movement: speech and movement normal Mood: congruent mood Affect: normal affect Attitude: cooperative Thought Content: no homicidality and suicidality Other: See HPI. Course Course Course Narrative: We discussed his cardiac workup. His vitals are stable, his EKG looks good. His labs have no significant changes. We discussed his were experience, and his emotional/social status since his . I believehe has depression. He declined medications. I am recommending he talk to his PCM about seeing a therapist. Orders Ordered: ED Orders 09/19/21 11:45 EKG-12 Lead Stat 09/19/21 12:00 COVID19 -Nasal swab/Pre-Proc Stat 09/19/21 12:01 BNP [NT-proBNP (BNP-Adult 18+)] Stat Complete Blood Count AUTO DIFF Stat Comprehensive Metabolic Panel Stat Lipase Stat Troponin & CK Cardiac Panel Stat 09/19/21 12:11 XR chest 1V Stat Vital Signs Vital signs: Vital Signs - 8 hr 09/19/21 11:57 09/19/21 11:58 09/19/21 12:00 Temperature 98.3 F Pulse Rate 80 74 76 Respiratory Rate 27 H 20 32 H Blood Pressure 159/87 H 158/97 H Pulse Oximetry 95 94 94 MDM - Arrhythmia/Palpitations Lab Data Result diagrams: 09/19/21 12:01 11/20/21 12:01 Labs: Lab Results 09/19/21 09/19/21 09/19/21 Range/Units 12:00 12:01 12:01 WBC 5.5 (4.5-11.0) X10^3/uL RBC 4.67 (4.5-5.9) X10^6/uL Hgb 16.4 (13.5-17.5) g/dL Hct 46.9 (41-53) % MCV 100.6 H (80-100) fL MCH 35.1 H (26-34) PG MCHC 34.9 (30-36) % RDW 13.4 (11.6-14.8) % Plt Count 174 (150-400) X10^3/uL Neut % (Auto) 61.5 (50-75) % Lymph % (Auto) 25.6 (25-40) % Hanson % (Auto) 9.4 (3-14) % Eos % (Auto) 2.8 (2-4) % Baso % (Auto) 0.7 (0-2) % Neut # (Auto) 3400 (2895-8805) /uL Lymph # (Auto) 1400 (3525-0426) /uL Hanson # (Auto) 500 (0-900) /uL Eos # (Auto) 200 (0-450) /uL Baso # (Auto) 0 (0-100) /uL Sodium 133 L (137-145) mmol/L Potassium 4.0 (3.4-5.1) mmol/L Chloride 99 (98-107) mmol/L Carbon Dioxide 24 (22-32) mmol/L BUN 11 (9-20) mg/dL Creatinine 0.69 (0.66-1.25) mg/dL Estimated GFR > 60.0 (>60) mL/min BUN/Creatinine Ratio 15.9 (6-22) Glucose 369 H (80-110) mg/dL Calcium 9.3 (8.4-10.2) mg/dL Total Bilirubin 1.1 (0.2-1.3) mg/dL AST 40 (17-59) IU/L ALT 34 (<50) IU/L Alkaline Phosphatase 104 (38-126) U/L Total Creatine Kinase 65 (55-170) U/L CK-MB (CK-2) TNP CK-MB (CK-2) Rel Index TNP Troponin I < 0.012 (0.01-0.034) ng/mL NT-Pro-B Natriuret Pep (<125) pg/mL Total Protein 6.8 (6.3-8.2) g/dL Albumin 4.3 (3.5-5.0) g/dL Globulin 2.5 (1.7-4.1) g/dL Albumin/Globulin Ratio 1.7 (1.0-2.8) Lipase 48 (23-300) U/L SARS-CoV-2 (PCR) Negative (Negative) 09/19/21 Range/Units 12:01 WBC (4.5-11.0) X10^3/uL RBC (4.5-5.9) X10^6/uL Hgb (13.5-17.5) g/dL Hct (41-53) % MCV (80-100) fL MCH (26-34) PG MCHC (30-36) % RDW (11.6-14.8) % Plt Count (150-400) X10^3/uL Neut % (Auto) (50-75) % Lymph % (Auto) (25-40) % Hanson % (Auto) (3-14) % Eos % (Auto) (2-4) % Baso % (Auto) (0-2) % Neut # (Auto) (5941-1219) /uL Lymph # (Auto) (9065-4034) /uL Hanson # (Auto) (0-900) /uL Eos # (Auto) (0-450) /uL Baso # (Auto) (0-100) /uL Sodium (137-145) mmol/L Potassium (3.4-5.1) mmol/L Chloride (98-107) mmol/L Carbon Dioxide (22-32) mmol/L BUN (9-20) mg/dL Creatinine (0.66-1.25) mg/dL Estimated GFR (>60) mL/min BUN/Creatinine Ratio (6-22) Glucose (80-110) mg/dL Calcium (8.4-10.2) mg/dL Total Bilirubin (0.2-1.3) mg/dL AST (17-59) IU/L ALT (<50) IU/L Alkaline Phosphatase (38-126) U/L Total Creatine Kinase (55-170) U/L CK-MB (CK-2) CK-MB (CK-2) Rel Index Troponin I (0.01-0.034) ng/mL NT-Pro-B Natriuret Pep 69 (<125) pg/mL Total Protein (6.3-8.2) g/dL Albumin (3.5-5.0) g/dL Globulin (1.7-4.1) g/dL Albumin/Globulin Ratio (1.0-2.8) Lipase (23-300) U/L SARS-CoV-2 (PCR) (Negative) Imaging Data Chest x-ray: Radiologist's Impresson: No acute findings. ECG Data Attestation: I personally reviewed and interpreted this ECG as follows: (Normal sinus rhythm. Frequent PVCs. Normal intervals. No acute ST T wave changes.) Prior ECG tracings: available for review Discharge Plan Departure Patient Disposition: Home Clinical Impression: Heart palpitations, Atrial fibrillation, Depression Instructions: Depression Activity Restrictions/Additional Instructions: You may benefit from counseling. Discussed this with her PCM. If he of returns of chest pain, difficulty breathing, or weakness/dizziness return the ER. Prescriptions: No Action metoprolol succinate 50 mg tablet extended release 24 hr 50 mg PO DAILY Qty: 30 3RF (DME) blood-glucose meter Misc See Rx Instructions .ROUTE .MEDSUPPLY Qty: 1 0RF Rx Instructions: As directed (DME) Blood Glucose Test Strip See Rx Instructions .ROUTE .MEDSUPPLY Qty: 100 3RF Rx Instructions: Use to check 1-2x a day for blood sugar (DME) lancets Misc See Rx Instructions .ROUTE .MEDSUPPLY Qty: 100 0RF Rx Instructions: Use to check blood sugars 1-2x a day clindamycin phosphate 1 % solution 1 applic TOPICAL DIRECTED 0RF Referrals: Tripp Spears MD [Primary Care Provider] -
[2021-09-19 14:08] VITALS: BP 171/93; PULSE 75; RESP 20; O2SAT 97
== END 2021-09-19 14:10 | disposition home or self-care (01) ==
PROVIDERS: Emergency Provider Emergency Medicine; Family Provider Internal Medicine; PCP Internal Medicine
DX: I48.0 Paroxysmal atrial fibrillation (principal); F32.9 Major depressive disorder, single episode, unspecified; Z20.822 Contact with and (suspected) exposure to COVID-19
CPT/HCPCS: 36415; 71045; 80053; 82550; 83690; 83880; 84484; 85025; 87635; 93005; 99284; C9803

== ENCOUNTER → 2021-10-29 11:18 | Outpatient (CLI) | payer MEDICARE, BC, SELFPAY ==
[2021-10-29 12:38] LABS: Hemoglobin A1C% w Est Avg Glu 11.2 % (4.0-6.0)
[2021-10-29 12:46] LABS: BUN Creatinine Ratio 16.7 (6-22); Blood Urea Nitrogen 13 mg/dL (9-20); Calcium 9.7 mg/dL (8.4-10.2); Carbon Dioxide 25 mmol/L (22-32); Chloride 102 mmol/L (98-107); Estimated Glomerular Filt Rate > 60.0 mL/min (>60); Glucose 337 mg/dL (80-110); HEMOLYSIS < 15 (0-50); Potassium 4.1 mmol/L (3.4-5.1); Sodium 135 mmol/L (137-145)
[2021-10-29 13:03] LABS: Free T4, Direct Thyroxine 0.78 ng/dL (0.78-2.19)
[2021-10-29 13:17] LABS: Thyroid Stimulating Hormone 5.48 uIU/mL (0.47-4.68)
== END ==
PROVIDERS: Family Provider Internal Medicine; PCP Internal Medicine; Referring Provider Internal Medicine; Visit Provider Internal Medicine
DX: E11.65 Type 2 diabetes mellitus with hyperglycemia (principal); E78.5 Hyperlipidemia, unspecified; E03.9 Hypothyroidism, unspecified
CPT/HCPCS: 36415; 80048; 83036; 84439; 84443

== ENCOUNTER → 2022-01-22 10:48 | Outpatient (CLI) | payer MEDICARE, BC, SELFPAY ==
[2022-01-22 12:22] LABS: BUN Creatinine Ratio 15.8 (6-22); Blood Urea Nitrogen 12 mg/dL (9-20); Calcium 9.8 mg/dL (8.4-10.2); Carbon Dioxide 23 mmol/L (22-32); Chloride 102 mmol/L (98-107); Estimated Glomerular Filt Rate > 60.0 mL/min (>60); Glucose 367 mg/dL (80-110); HEMOLYSIS < 15 (0-50); Potassium 4.1 mmol/L (3.4-5.1); Sodium 135 mmol/L (137-145)
[2022-01-22 12:28] LABS: Hemoglobin A1C% w Est Avg Glu 11.7 % (4.0-6.0)
== END ==
PROVIDERS: Family Provider Internal Medicine; PCP Internal Medicine; Referring Provider Internal Medicine; Visit Provider Internal Medicine
DX: E11.65 Type 2 diabetes mellitus with hyperglycemia (principal)
CPT/HCPCS: 36415; 80048; 83036

== ENCOUNTER → 2022-04-18 10:23 | Outpatient (CLI) | payer MEDICARE, BC, SELFPAY ==
--- NOTE | 2022-04-18 10:24 | DI.MRI.S_ITS ---
PROCEDURE: MR LUMBAR SPINE WO CON INDICATIONS: LUMBAR PAIN TECHNIQUE: Noncontrast sagittal T1 spin echo and T2 fast echo, sagittal STIR, and T2 fast spin echo through the lumbar spine. In cases with scoliosis, additional coronal T2 fast spin echo may be performed. COMPARISON: [facility], MR, L-SPINE WITHOUT CONTRAST, 03/14/2017, 7:15. FINDINGS: Image quality: Excellent. Alignment and Curvature: There is normal bony alignment. Bone Marrow: Mild Modic type 1 degenerative endplate changes noted at L1-2 Spinal Cord: Conus medullaris terminates at the L1 level. Visualized cord demonstrates normal signal and size. Paraspinous Soft Tissues: No paravertebral masses. T12-L1: Disc space narrowing and circumferential disc bulge results in mild central stenosis. No foraminal stenosis. L1-L2: Disc space narrowing and circumferential disc bulge results in mild central stenosis. Mild bilateral foraminal stenosis L2-L3: Disc space narrowing and circumferential disc bulge with hypertrophic facet joints results in moderate central stenosis. Moderate bilateral foraminal stenosis. L3-L4: Disc space narrowing with circumferential disc bulge and hypertrophic facet joints combined with ligamentum flavum laxity to result in severe central stenosis. Moderate bilateral foraminal stenosis present. L4-L5: Disc space narrowing and circumferential disc bulge with hypertrophic facet joints results in moderate central stenosis. Moderate bilateral foraminal stenosis is greater on the left. L5-S1: Disc space narrowing with circumferential disc bulge and hypertrophic facet joints present. No central stenosis. Moderate right and severe left foraminal stenosis. IMPRESSION: Multilevel degenerative disc disease and arthropathy results in varying degrees of central and foraminal stenosis including severe central stenosis at L3-4, increased from the prior exam Approved by: Dinesh Sanchez M.D. on 04/18/2022 at 10:40
== END ==
PROVIDERS: Family Provider Internal Medicine; PCP Internal Medicine; Referring Provider Orthopaedic Surgery Orthopaedic Surgery of the Spine; Visit Provider Orthopaedic Surgery Orthopaedic Surgery of the Spine
DX: M48.061 Spinal stenosis, lumbar region without neurogenic claudication (principal); M48.07 Spinal stenosis, lumbosacral region; M51.36 Other intervertebral disc degeneration, lumbar region; M51.37 Other intervertebral disc degeneration, lumbosacral region; M47.816 Spondylosis without myelopathy or radiculopathy, lumbar region; M47.817 Spondylosis without myelopathy or radiculopathy, lumbosacral region
CPT/HCPCS: 72148

== ENCOUNTER → 2022-05-04 08:14 | Outpatient (CLI) | payer MEDICARE, BC, SELFPAY ==
[2022-05-04 09:39] LABS: Hemoglobin A1C% w Est Avg Glu 8.4 % (4.0-6.0)
[2022-05-04 10:43] LABS: Vitamin B12 364 pg/mL (239-931)
== END ==
PROVIDERS: Family Provider Internal Medicine; PCP Internal Medicine; Referring Provider Internal Medicine; Visit Provider Internal Medicine
DX: E11.65 Type 2 diabetes mellitus with hyperglycemia (principal); R53.83 Other fatigue
CPT/HCPCS: 36415; 82607; 83036

== ENCOUNTER → 2022-06-04 16:19 | Outpatient (CLI) | payer MEDICARE, BC, SELFPAY ==
--- NOTE | 2022-06-04 16:20 | DI.MRI.S_ITS ---
PROCEDURE: MR STROKE Pre- and post-contrast brain MRI, non-contrast brain MR angiogram, pre- and postcontrast neck MR angiogram INDICATIONS: dizziness/headache TECHNIQUE: Brain: Noncontrast axial T1 spin echo, axial T2 fast spin echo, sagittal and axial FLAIR, coronal T2 fast spin echo, axial gradient echo, axial diffusion and ADC through the brain. After the administration of contrast, axial 3D VIBE of the cranial vasculature and brain. Brain MRA: Non-contrast 3-D time of flight MR angiogram, with multiple jvpusbh-agwvbcbmv-qklcrqsvgd (MIP) reformats performed. Neck MRA: Axial and sagittal TruFISP through the neck. Coronal dynamic MR angiogram during administration of contrast in the arterial and venous phases, with 3-dimenstional imgthpu-dmfmozonk-jezdbrjrlu (MIP) reformats constructed from subtraction images. COMPARISON: [facility], , MR STROKE, 10/09/2019, 11:54. FINDINGS: Image quality: There is mild motion artifact. CSF spaces: There is mild cerebral volume loss with prominence of the ventricles and sulci. Basal cisterns are patent. No extra-axial fluid collections. Brain: Diffusion weighted images demonstrate no acute infarcts. No intracranial hemorrhage, mass, or mass effect. There are a few periventricular foci of white matter T2 hyperintensity consistent with mild chronic small vessel ischemic changes. Brainstem appears normal. Normal intravascular flow voids are present. No abnormal intracranial enhancement. Skull and face: Calvarial marrow signal is normal. Orbits appear normal. Sinuses: There is mild mucosal thickening within the ethmoid and maxillary sinuses. Mastoid air cells are clear. The BRAIN MR ANGIOGRAM: Anterior circulation: Intracranial internal carotid arteries are normal in size and patent bilaterally. The flow within the paired anterior cerebral arteries is symmetric and patent bilaterally. The flow within the middle cerebral arteries is symmetric and patent bilaterally. The anterior communicating artery is patent. No high-grade stenoses, occlusions, or aneurysms. Posterior circulation: The visualized portions of the vertebral arteries are patent and join to form a patent basilar artery. The flow within the posterior cerebral arteries is symmetric and patent bilaterally. No high-grade stenoses, occlusions, or aneurysms. NECK MR ANGIOGRAM: Carotids: Great vessels demonstrate conventional anatomy as they arise from the aortic arch. The origins of the common carotid arteries appear patent. The calibers and courses of both common carotid arteries are normal. The carotid bulbs appear widely patent. The internal carotid arteries demonstrate normal course and caliber. Posterior circulation: The origins of the vertebral arteries appear patent. More superior portions of both vertebral arteries demonstrate normal course and caliber, and join to form a normal appearing basilar artery. Miscellaneous: Subclavian arteries appear patent. Pre-contrast images through the neck demonstrate no soft tissue abnormalities. IMPRESSION: BRAIN MRI: 1. No infarct or other acute intracranial abnormality. 2. Mild cerebral volume loss and mild chronic white matter small vessel ischemic changes. BRAIN MR ANGIOGRAM: 1. No high-grade stenosis or occlusion of the central intracranial arteries. NECK MR ANGIOGRAM: 1. No high-grade stenosis or occlusion of the head and neck arteries. The carotid bulbs appear widely patent. Dictated by: Nayan Perez M.D. on 06/05/2022 at 1:08 Approved by: Nayan Perez M.D. on 06/05/2022 at 1:15
--- NOTE | 2022-06-04 16:20 | DI.US.S_ITS ---
PROCEDURE: US CAROTID DOPPLER BI INDICATIONS: dizziness TECHNIQUE: Color and pulse Doppler interrogation was performed of both carotid systems, with image documentation and velocity measurements. COMPARISON: [facility], , CAROTID DOPPLER BI, 10/09/2019, 10:35. FINDINGS: Stenosis calculations are based on SRU (Society of Radiologists in Ultrasound) criteria. The flow velocities and the arterial waveforms are normal within both carotid arterial systems. Mild atherosclerotic plaque is seen on both sides. The estimated degree of internal carotid artery stenosis is less than 50%. Antegrade flow is confirmed within both vertebral arteries. IMPRESSION: No hemodynamically significant stenosis is seen. No significant change from the prior. Dictated by: Warner Ross M.D. on 06/04/2022 at 17:06 Approved by: Warner Ross M.D. on 06/04/2022 at 17:06
== END ==
PROVIDERS: Family Provider Internal Medicine; PCP Internal Medicine; Referring Provider Internal Medicine; Visit Provider Internal Medicine
DX: R42 Dizziness and giddiness (principal); R51.9 Headache, unspecified; E11.65 Type 2 diabetes mellitus with hyperglycemia; I10 Essential (primary) hypertension
CPT/HCPCS: 70548; 70553; 93880; A9579

== ENCOUNTER → 2022-06-18 07:52 | Outpatient (CLI) | payer MEDICARE, BC, SELFPAY ==
[2022-06-18 09:11] LABS: Hemoglobin A1C% w Est Avg Glu 8.3 % (4.0-6.0)
[2022-06-18 09:43] LABS: BUN Creatinine Ratio 22.5 (6-22); Blood Urea Nitrogen 18 mg/dL (9-20); Carbon Dioxide 23 mmol/L (22-32); Chloride 105 mmol/L (98-107); Estimated Glomerular Filt Rate > 60 mL/min (>60); Glucose 176 mg/dL (80-110); HEMOLYSIS < 15 (0-50); Potassium 4.4 mmol/L (3.4-5.1); Sodium 135 mmol/L (137-145)
== END ==
PROVIDERS: Family Provider Internal Medicine; PCP Internal Medicine; Referring Provider Internal Medicine; Visit Provider Internal Medicine
DX: E11.65 Type 2 diabetes mellitus with hyperglycemia (principal); I10 Essential (primary) hypertension
CPT/HCPCS: 36415; 80048; 83036

== ENCOUNTER → 2022-08-17 07:32 | Outpatient (CLI) | payer MEDICARE, BC, SELFPAY ==
[2022-08-17 09:00] LABS: Hemoglobin A1C% w Est Avg Glu 8.2 % (4.0-6.0)
[2022-08-17 09:17] LABS: BUN Creatinine Ratio 20.5 (6-22); Blood Urea Nitrogen 15 mg/dL (9-20); Carbon Dioxide 23 mmol/L (22-32); Chloride 103 mmol/L (98-107); Estimated Glomerular Filt Rate > 60 mL/min (>60); Glucose 168 mg/dL (80-110); HEMOLYSIS 16 (0-50); Potassium 3.9 mmol/L (3.4-5.1); Sodium 138 mmol/L (137-145)
== END ==
PROVIDERS: Family Provider Internal Medicine; PCP Internal Medicine; Referring Provider Internal Medicine; Visit Provider Internal Medicine
DX: E11.65 Type 2 diabetes mellitus with hyperglycemia (principal); I10 Essential (primary) hypertension
CPT/HCPCS: 36415; 80048; 83036

== ENCOUNTER 2023-01-27 09:00 | Outpatient (RCR) | payer MEDICARE, BC, SELFPAY ==
--- NOTE | 2022-11-08 13:38 | PT.OIE ---
Current Diagnoses Cervicalgia (11/08/22) Other abnormalities of gait and mobility (11/08/22) Abnormal posture (11/08/22) Weakness (11/08/22) Arthrodesis status (11/08/22) Past Medical History (Last Reviewed 09/19/21 @ 13:33 by Yoan Bray MD) Atrial fibrillation (03/12/14) Chronic cholecystitis Esophageal dysmotility Essential hypertension (11/16/17) Hyperlipidemia Hypothyroidism Paroxysmal atrial fibrillation 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/17) Type 2 diabetes mellitus without complication (11/16/17) Unspecified asthma (06/08/11) Past Surgical History (Last Reviewed 09/19/21 @ 13:33 by Yoan Bray MD) History of carpal tunnel repair History of knee replacement Status post cholecystectomy Status post hernia repair Visit Care Team Role Provider Type Tripp Spears MD Attending Provider Physician Family Provider Primary Care Provider Referring Provider Specialty: Internal Medicine Address: [address] [place] [address], [address], [facility] Email: [email or web address] Physical Therapy Initial Evaluation PT-OP-A Visit Information Start: 11/03/22 13:37 Freq: Status: Active Protocol: Document 11/08/22 10:35 [facility] (Rec: 11/08/22 11:30 [facility] [id number]) Out-Patient Physical Therapy Visit Information Visit Information Visit Type Initial Evaluation Visit Start Time 10:38 Visit Stop Time 11:16 Total Visit Minutes 38 Number of COATING MIXER Visits 0 PT-OP-B Current Condition Start: 11/03/22 13:37 Freq: Status: Active Protocol: Document 11/08/22 10:35 [facility] (Rec: 11/08/22 11:30 [facility] [id number]) Current Condition History of Current Condition Onset Date neck pain about 12 years ago; balance 3 years ago or more Current Complaints Neck pain/head pain and balance issues History of Current Condition Pt reportsbroke his [place] in [place] is an attack but was pushed out of the hospital too quickly before Xrays and was off for 6 days. 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 He was working [employer] at the same time. Pt had C3-6 fusion about 11 years ago. about 7 months later, he lost some of the muscle in post shoulders. Pt reports head pain on R side of head and R arm has some problems sometimes. 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 he has been doing balance exercises from [employer]. Pt has issue w/clavicle pressing on trachea and some things cause coughing. He started [employer] a while ago but stopped unsure why. He has managed it okay so far.He can feel the pressure when rolling in bed. B RC issues. Pt has hx of L HS tear about 9 years ago Prior Treatments and Tests Carotid Doppler: IMPRESSION: No hemodynamically significant stenosis is seen. No significant change from the prior. Massage therapy: helps Brain MRI: IMPRESSION: BRAIN MRI: 1. No infarct or other acute intracranial abnormality. 2. Mild cerebral volume loss and mild chronic white matter small vessel ischemic changes. BRAIN MR ANGIOGRAM: 1. No high-grade stenosis or occlusion of the central intracranial arteries. NECK MR ANGIOGRAM: 1. No high-grade stenosis or occlusion of the head and neck arteries. The carotid bulbs appear widely patent. Cervical CT: Bones: No fractures or dislocations. There is mild, approximately 3 mm of C2-C3, 2 mm of C6-C7 and 2 mm of C7-T1 degenerative anterolisthesis. Visualized superior ribs are intact. Postsurgical changes compatible with C4-C6 ACDF are noted. The orthopedic hardware is intact. No lucencies are identified the bone hardware interface. Spine degenerative disc disease and facet arthropathy. No significant central canal narrowing. Severe bilateral C3-C4, C4-C5 and C6-C7 neural foraminal narrowing. Severe left C5-C6 neural foraminal narrowing. Mild osteophytic degenerative changes are noted in the sternoclavicular joints bilaterally. No definite sternoclavicular joint effusions identified. No osseous erosive changes at the sternoclavicular joints. There is widening of the right acromioclavicular joint which could be due to prior acromioplasty; please correlate with surgical history. Soft tissues: Prevertebral soft tissues are normal in thickness. No paravertebral hematomas. No apical pneumothoraces. No soft tissue inflammation or fluid collections noted adjacent to the sternoclavicular joints. Treatment Goals Patient/Caregiver Goals improve strength & balance PT-OP-C Subjective Start: 11/03/22 13:37 Freq: Status: Active Protocol: Document 11/08/22 10:35 [facility] (Rec: 11/08/22 11[facility]30 [id number] Patient Questionnaires ABC- Activity Specific Balance Confidence Scale ABC Score 75 OP-PT Pain Assessment Location cervical Pain Location Details R side neck and head Intensity 4 Scale Used worst 8/10 Frequency Intermittent Pain Aggravating Factors Sitting Other Pain Aggravating Factors pulling on things, comes/goes Pain Alleviating Factors Heat PT-OP-D Balance Start: 11/03/22 13:37 Freq: Status: Active Protocol: Document 11/08/22 10:35 [facility] (Rec: 11/08/22 11:30 [id number] Balance Tests Single Limb Standing Single Limb- Right 9 sec Single Limb- Left 5 sec PT-OP-E Functional Tests Start: 11/03/22 13:37 Freq: Status: Active Protocol: Document 11/08/22 10:35 [facility] (Rec: 11/08/22 11:30 [id number] Functional Tests Dynamic Gait Index (DGI) Score 22 Functional Gait Assessment Score PT-OP-F Manual Assessment Start: 11/03/22 13:37 Freq: Status: Active Protocol: Document 11/08/22 10:35 [facility] (Rec: 11/08/22 11:30 [id number] Manual Assessments Soft Tissue Assessment Soft Tissue Mobility Assessment R>L cervical and cranial tightness PT-OP-G Mobility & Gait Start: 11/03/22 13:37 Freq: Status: Active Protocol: Document 11/08/22 10:35 [facility] (Rec: 11/08/22 11:30 [facility] [id number]) OP Gait Assessment Comments Gait Comments dec push off PT-OP-J Posture/Palpation/Skin Start: 11/03/22 13:37 Freq: Status: Active Protocol: Document 11/08/22 10:35 [facility] (Rec: 11/08/22 11:30 [facility] [id number]) Posture Evaluation Comments Posture Comments fwd head and neck & inc kyphosis PT-OP-K Range of Motion Start: 11/03/22 13:37 Freq: Status: Active Protocol: Document 11/08/22 10:35 [facility] (Rec: 11/08/22 11:30 [facility] [id number]) Cervical Spine Range of Motion Cervical Spine Active Degrees Flexion 55 Extension 21 Rotation Left 36 Rotation Right 37 Lateral Flexion Left 10 Lateral Flexion Right 10 ROM Limitations Pain PT-OP-L Special Tests Start: 11/03/22 13:37 Freq: Status: Active Protocol: Document 11/08/22 10:35 [facility] (Rec: 11/08/22 11:30 [facility] [id number]) Special Tests Cervical Spine Special Tests Spurling's Test Test Results neg Vertebral Artery Test Results neg Alar Ligament Test Results neg Neural Special Tests- Upper Body Median Nerve Tension Test Results positive B Ulnar Nerve Tension Test Results neg B Radial Nerve Tension Test Results neg B PT-OP-M Strength Start: 11/03/22 13:37 Freq: Status: Active Protocol: Document 11/08/22 10:35 [facility] (Rec: 11/08/22 11:30 [facility] [id number]) Shoulder Strength Shoulder Manual Muscle Testing Right Flexion 3+ Fair+ Extension 4 Good Abduction (C5) 3+ Fair+ External Rotation 3+ Fair+ Internal Rotation 4+ Good+ Left Flexion 3+ Fair+ Extension 4 Good Abduction (C5) 3+ Fair+ External Rotation 3 Fair Internal Rotation 4+ Good+ Hip Strength Hip Manual Muscle Testing Right Flexion (L2) 4- Good- Extension (S1) 3+ Fair+ Abduction 4- Good- External Rotation 3+ Fair+ Internal Rotation 5 Normal Left Flexion (L2) 4- Good- Extension (S1) 3+ Fair+ Abduction 4- Good- External Rotation 3+ Fair+ Internal Rotation 5 Normal Knee Strength Knee Manual Muscle Testing Right Flexion (S2) 5 Normal Extension (L3) 5 Normal Left Flexion (S2) 5 Normal Extension (L3) 5 Normal Ankle/Foot Strength Ankle and Foot Manual Muscle Testing Right Dorsiflexion (L4) 5 Normal Plantarflexion (S1) 5 Normal Inversion 4+ Good+ Eversion (S1) 5 Normal Left Dorsiflexion (L4) 5 Normal Plantarflexion (S1) 5 Normal Inversion 4+ Good+ Eversion (S1) 5 Normal Comments PF tested seated B PT-OP-T Assessment and Plan Start: 11/03/22 13:37 Freq: Status: Active Protocol: Document 11/08/22 10:35 [facility] (Rec: 11/08/22 11:30 [facility] [id number]) Physical Therapy Assessment Rehab Potential Rehabilitation Potential Good Evaluation Complexity Number of Personal Factors/Comorbidities 3 or More Number of Body Systems Impaired 4 or More Clinical Presentation at Evaluation Evolving Impairments Impairments Activity Tolerance,Balance, Functional Activities, Functional Mobility,Gait,Pain, Posture,ROM,Soft Tissue Mobility,Strength Goals pain Green Pipefitter Goal (LTG) Pt will report worst pain in neck for a week to be no greater than 4/10. LTG Duration 01.31.23 Strength Short Term Goal (STG) Pt will be indep w/HEP STG Duration 12/29/22 Snf Goal (LTG) Pt will score at least 4+/5 on all LE strength to imrpove LE stability and improve balance LTG Duration 01/31 ROM Short Term Goal (STG) Pt will improve rotation B cervically to at least 45 deg. STG Duration 12/29/22 Green Pipefitter Goal (LTG) Pt will report min pain w/all ROM in cervical region. LTG Duration 01/31/23 SLS Green Pipefitter Goal (LTG) Pt will be able to do SLS for 15 sec B. LTG Duration 01/31/23 Assessment Summary Assessment Pt presents with c/o dec balance and neck pain worsening recently. He still is very active, but has changed all his yard tools to battery operated vs pull start . He does cont to do [place] and can feel off balance when bending over. He has long history of neck issues since [place] where he thinks he fractured his neck but wasn't treated ( recent MD found old fractures) . He does show some dec overall balance, but did overall well iwth testing.He does do very high level activities outside though so the deficits that were noted in his balance do make him at greater risk for falls d/t the activities he still continues in his yard. He has significnat restriction in neck ROM, posture and UE strength (complicated by B RC tears and multilevel fusion). He would beneift from skilled PT to improve neck ROM & dec pain and improve balance. Physical Therapy Plan Frequency and Duration Frequency of Treatment 1-2x/wk Duration of treatment (weeks) 12 Plan of Care Start Date 11/08/22 Plan of Care End Date 01/31/23 Therapeutic Interventions Therapeutic Interventions Aquatic Therapy,Balance Training,Gait Training,Home Exercise Program,Joint Mobilizations,Manual Therapy, Neuromuscular Re-education, Orthotic/Prosthetic Management ,Patient/Caregiver Education, Self-Care/Home Management,Soft Tissue Mobilization,Taping, Therapeutic Activities, Therapeutic Exercises, Vestibular Rehabilitation Modalities Cold Pack/Ice Massage,Electric Stimulation,Hot Packs, Infrared Therapy,Ultrasound Next Visit Focus/Plan Next Note Type Treatment Note Next Visit Plan red clips balance, SLS activities, uneven surfaces w/ hurdles, rows,
--- NOTE | 2022-11-08 13:38 | PT.OPPOC ---
Physical, Occupational & Speech Therapy At [facility] Current Diagnoses Cervicalgia (11/08/22) Other abnormalities of gait and mobility (11/08/22) Abnormal posture (11/08/22) Weakness (11/08/22) Arthrodesis status (11/08/22) Visit Care Team Role Provider Type Tripp Spears MD Attending Provider Physician Family Provider Primary Care Provider Referring Provider Specialty: Internal Medicine Address: [address] [place] [address], [address], [facility] Email: [email or web address] Plan Of Care PT-OP-T Assessment and Plan Start: 11/03/22 13:37 Freq: Status: Active Protocol: Document 11/08/22 10:35 [facility] (Rec: 11/08/22 11:30 [facility] [id number]) Physical Therapy Assessment Rehab Potential Rehabilitation Potential Good Evaluation Complexity Number of Personal Factors/Comorbidities 3 or More Number of Body Systems Impaired 4 or More Clinical Presentation at Evaluation Evolving Impairments Impairments Activity Tolerance,Balance, Functional Activities, Functional Mobility,Gait,Pain, Posture,ROM,Soft Tissue Mobility,Strength Goals pain Prison Goal (LTG) Pt will report worst pain in neck for a week to be no greater than 4/10. LTG Duration 01.31.23 Strength Short Term Goal (STG) Pt will be indep w/HEP STG Duration 12/29/22 Lumber Inspector Goal (LTG) Pt will score at least 4+/5 on all LE strength to imrpove LE stability and improve balance LTG Duration 01/31 ROM Short Term Goal (STG) Pt will improve rotation B cervically to at least 45 deg. STG Duration 12/29/22 Lumber Inspector Goal (LTG) Pt will report min pain w/all ROM in cervical region. LTG Duration 01/31/23 SLS Prison Goal (LTG) Pt will be able to do SLS for 15 sec B. LTG Duration 01/31/23 Assessment Summary Assessment Pt presents with c/o dec balance and neck pain worsening recently. He still is very active, but has changed all his yard tools to battery operated vs pull start . He does cont to do [place] and can feel off balance when bending over. He has long history of neck issues since [place] where he thinks he fractured his neck but wasn't treated ( recent MD found old fractures) . He does show some dec overall balance, but did overall well iwth testing.He does do very high level activities outside though so the deficits that were noted in his balance do make him at greater risk for falls d/t the activities he still continues in his yard. He has significnat restriction in neck ROM, posture and UE strength (complicated by B RC tears and multilevel fusion). He would beneift from skilled PT to improve neck ROM & dec pain and improve balance. Physical Therapy Plan Frequency and Duration Frequency of Treatment 1-2x/wk Duration of treatment (weeks) 12 Plan of Care Start Date 11/08/22 Plan of Care End Date 01/31/23 Therapeutic Interventions Therapeutic Interventions Aquatic Therapy,Balance Training,Gait Training,Home Exercise Program,Joint Mobilizations,Manual Therapy, Neuromuscular Re-education, Orthotic/Prosthetic Management ,Patient/Caregiver Education, Self-Care/Home Management,Soft Tissue Mobilization,Taping, Therapeutic Activities, Therapeutic Exercises, Vestibular Rehabilitation Modalities Cold Pack/Ice Massage,Electric Stimulation,Hot Packs, Infrared Therapy,Ultrasound Next Visit Focus/Plan Next Note Type Treatment Note Next Visit Plan red clips balance, SLS activities, uneven surfaces w/ hurdles, rows, Plan of Care Dates Plan of Care Start Date 11/08/22 Plan of Care End Date 01/31/23 Electronically Signed by: Shelly Bejarano, PT 11/08/22 6125 If you are in agreement with this Plan of Care, please return a signed and dated copy. I have reviewed this Plan of Care and certify that the skilled therapy services above are required to meet the patient?s needs. Physician Signature Date Printed Name and Credentials Clinical Instructor Signature Printed Name and Credentials
--- NOTE | 2022-11-11 13:10 | PT.OTN ---
Current Diagnoses Cervicalgia (11/11/22) Other abnormalities of gait and mobility (11/11/22) Abnormal posture (11/11/22) Weakness (11/11/22) Arthrodesis status (11/11/22) Physical Therapy Treatment Note PT-OP-A Visit Information Start: 11/03/22 13:37 Freq: Status: Active Protocol: Document 11/11/22 10:33 [facility] (Rec: 11/11/22 13:09 [facility] [id number]) Out-Patient Physical Therapy Visit Information Visit Information Visit Type Treatment Note Visit Note 12/10 Visit Start Time 10:38 Visit Stop Time 11:31 Total Visit Minutes 53 Visit Number 2 Number of WELLNESS NURSE Visits 0 PT-OP-B Current Condition Start: 11/03/22 13:37 Freq: Status: Active Protocol: Document 11/08/22 10:35 [facility] (Rec: 11/08/22 11:30 [facility] [id number]) Current Condition History of Current Condition Onset Date neck pain about 12 years ago; balance 3 years ago or more Current Complaints Neck pain/head pain and balance issues History of Current Condition Pt reportsbroke his neck in [place] is an attack but was pushed out of the hospital too quickly before Xrays and was off for 6 days. 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 He was working [employer] at the same time. Pt had C3-6 fusion about 11 years ago. about 7 months later, he lost some of the muscle in post shoulders. Pt reports head pain on R side of head and R arm has some problems sometimes. 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 he has been doing balance exercises from [employer]. Pt has issue w/clavicle pressing on trachea and some things cause coughing. 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 He has managed it okay so far.He can feel the pressure when rolling in bed. B RC issues. Pt has hx of L HS tear about 9 years ago Prior Treatments and Tests Carotid Doppler: IMPRESSION: No hemodynamically significant stenosis is seen. No significant change from the prior. Massage therapy: helps Brain MRI: IMPRESSION: BRAIN MRI: 1. No infarct or other acute intracranial abnormality. 2. Mild cerebral volume loss and mild chronic white matter small vessel ischemic changes. BRAIN MR ANGIOGRAM: 1. No high-grade stenosis or occlusion of the central intracranial arteries. NECK MR ANGIOGRAM: 1. No high-grade stenosis or occlusion of the head and neck arteries. The carotid bulbs appear widely patent. Cervical CT: Bones: No fractures or dislocations. There is mild, approximately 3 mm of C2-C3, 2 mm of C6-C7 and 2 mm of C7-T1 degenerative anterolisthesis. Visualized superior ribs are intact. Postsurgical changes compatible with C4-C6 ACDF are noted. The orthopedic hardware is intact. No lucencies are identified the bone hardware interface. Spine degenerative disc disease and facet arthropathy. No significant central canal narrowing. Severe bilateral C3-C4, C4-C5 and C6-C7 neural foraminal narrowing. Severe left C5-C6 neural foraminal narrowing. Mild osteophytic degenerative changes are noted in the sternoclavicular joints bilaterally. No definite sternoclavicular joint effusions identified. No osseous erosive changes at the sternoclavicular joints. There is widening of the right acromioclavicular joint which could be due to prior acromioplasty; please correlate with surgical history. Soft tissues: Prevertebral soft tissues are normal in thickness. No paravertebral hematomas. No apical pneumothoraces. No soft tissue inflammation or fluid collections noted adjacent to the sternoclavicular joints. Treatment Goals Patient/Caregiver Goals improve strength & balance PT-OP-C Subjective Start: 11/03/22 13:37 Freq: Status: Active Protocol: Document 11/11/22 10:33 [facility] (Rec: 11/11/22 13:09 [facility] [id number]) OP-PT Subjective Patient Comments Patient Comments pt reports doing [employer] balance PT-OP-D Balance Start: 11/03/22 13:37 Freq: Status: Active Protocol: Document 11/08/22 10:35 [facility] (Rec: 11/08/22 11:30 [facility] [id number]) Balance Tests Single Limb Standing Single Limb- Right 9 sec Single Limb- Left 5 sec PT-OP-E Functional Tests Start: 11/03/22 13:37 Freq: Status: Active Protocol: Document 11/08/22 10:35 [facility] (Rec: 11/08/22 11:30 [facility] [id number]) Functional Tests Dynamic Gait Index (DGI) Score 22 Functional Gait Assessment Score PT-OP-F Manual Assessment Start: 11/03/22 13:37 Freq: Status: Active Protocol: Document 11/08/22 10:35 [facility] (Rec: 11/08/22 11:30 [facility] [id number]) Manual Assessments Soft Tissue Assessment Soft Tissue Mobility Assessment R>L cervical and cranial tightness PT-OP-G Mobility & Gait Start: 11/03/22 13:37 Freq: Status: Active Protocol: Document 11/08/22 10:35 [facility] (Rec: 11/08/22 11:30 [facility] [id number]) OP Gait Assessment Comments Gait Comments dec push off PT-OP-J Posture/Palpation/Skin Start: 11/03/22 13:37 Freq: Status: Active Protocol: Document 11/08/22 10:35 [facility] (Rec: 11/08/22 11:30 [facility] [id number]) Posture Evaluation Comments Posture Comments fwd head and neck & inc kyphosis PT-OP-K Range of Motion Start: 11/03/22 13:37 Freq: Status: Active Protocol: Document 11/08/22 10:35 [facility] (Rec: 11/08/22 11:30 [facility] [id number]) Cervical Spine Range of Motion Cervical Spine Active Degrees Flexion 55 Extension 21 Rotation Left 36 Rotation Right 37 Lateral Flexion Left 10 Lateral Flexion Right 10 ROM Limitations Pain PT-OP-L Special Tests Start: 11/03/22 13:37 Freq: Status: Active Protocol: Document 11/08/22 10:35 [facility] (Rec: 11/08/22 11:30 [facility] [id number]) Special Tests Cervical Spine Special Tests Spurling's Test Test Results neg Vertebral Artery Test Results neg Alar Ligament Test Results neg Neural Special Tests- Upper Body Median Nerve Tension Test Results positive B Ulnar Nerve Tension Test Results neg B Radial Nerve Tension Test Results neg B PT-OP-M Strength Start: 11/03/22 13:37 Freq: Status: Active Protocol: Document 11/08/22 10:35 [facility] (Rec: 11/08/22 11:30 [facility] [id number]) Shoulder Strength Shoulder Manual Muscle Testing Right Flexion 3+ Fair+ Extension 4 Good Abduction (C5) 3+ Fair+ External Rotation 3+ Fair+ Internal Rotation 4+ Good+ Left Flexion 3+ Fair+ Extension 4 Good Abduction (C5) 3+ Fair+ External Rotation 3 Fair Internal Rotation 4+ Good+ Hip Strength Hip Manual Muscle Testing Right Flexion (L2) 4- Good- Extension (S1) 3+ Fair+ Abduction 4- Good- External Rotation 3+ Fair+ Internal Rotation 5 Normal Left Flexion (L2) 4- Good- Extension (S1) 3+ Fair+ Abduction 4- Good- External Rotation 3+ Fair+ Internal Rotation 5 Normal Knee Strength Knee Manual Muscle Testing Right Flexion (S2) 5 Normal Extension (L3) 5 Normal Left Flexion (S2) 5 Normal Extension (L3) 5 Normal Ankle/Foot Strength Ankle and Foot Manual Muscle Testing Right Dorsiflexion (L4) 5 Normal Plantarflexion (S1) 5 Normal Inversion 4+ Good+ Eversion (S1) 5 Normal Left Dorsiflexion (L4) 5 Normal Plantarflexion (S1) 5 Normal Inversion 4+ Good+ Eversion (S1) 5 Normal Comments PF tested seated B PT-OP-Q Treatments Start: 11/03/22 13:37 Freq: Status: Active Protocol: Document 11/11/22 10:33 [facility] (Rec: 11/11/22 13:09 [facility] [id number]) Gym Equipment Shuttle Balance red clips Comments fwd & side: WBOS & NBOS fwd: staggered stance Therapeutic Exercises Sidelying Exercises open book Side bilateral Reps/Minutes 10 ea Sitting Exercises stretches Sitting Exercise Name 1. UT 2. LS Side bilateral Reps/Minutes 30 sec ea Standing Exercises rows Side bilateral Equipment Used L2 Reps/Minutes 15 Manual Therapy Treatment Soft Tissue Mobilization UT/LS Body Location B Mobilization Type Rolling Intensity/Depth Moderate SCM/scalenes Body Location B Mobilization Type Rolling Intensity/Depth Moderate Body Position Supine paraspinals Body Location B Mobilization Type Rolling,Strumming Intensity/Depth Moderate Body Position Supine Neuro Re-Education Treatment Balance Activities tandem stance Details B trials hurdles Details fwd Surface tpads btwn Equipment hurdles Reps/Duration 6 hurdles x8 PT-OP-R Modalities Start: 11/03/22 13:37 Freq: Status: Active Protocol: Document 11/11/22 10:33 [facility] (Rec: 11/11/22 13:09 [facility] [id number]) Hot Pack/Cold Pack Treatment Hot Pack Location cervical Patient Position Hooklying Treatment Duration (minutes) 15 PT-OP-T Assessment and Plan Start: 11/03/22 13:37 Freq: Status: Active Protocol: Document 11/11/22 10:33 [facility] (Rec: 11/11/22 13:09 [facility] [id number]) Physical Therapy Assessment Goals pain Design Printer Balloon Goal (LTG) Pt will report worst pain in neck for a week to be no greater than 4/10. LTG Duration 01.31.23 Strength Short Term Goal (STG) Pt will be indep w/HEP STG Duration 12/29/22 Retirement Goal (LTG) Pt will score at least 4+/5 on all LE strength to imrpove LE stability and improve balance LTG Duration 01/31 ROM Short Term Goal (STG) Pt will improve rotation B cervically to at least 45 deg. STG Duration 12/29/22 Design Printer Balloon Goal (LTG) Pt will report min pain w/all ROM in cervical region. LTG Duration 01/31/23 SLS Retirement Goal (LTG) Pt will be able to do SLS for 15 sec B. LTG Duration 01/31/23 Assessment Summary Assessment Pt did well with cueing for exercises especially with rows for scap movement and w/ stretcehs to hold for full amt of time. Had some challenge with balance activities but overall did well. Relief noted after. Physical Therapy Plan Frequency and Duration Frequency of Treatment 1-2x/wk Duration of treatment (weeks) 12 Plan of Care Start Date 11/08/22 Plan of Care End Date 01/31/23 Next Visit Focus/Plan Next Note Type Treatment Note Next Visit Plan cont red clips balance, SLS activities, uneven surfaces w/ hurdles, review rows, and stretches
--- NOTE | 2022-11-15 11:39 | PT.OTN ---
Current Diagnoses Cervicalgia (11/15/22) Other abnormalities of gait and mobility (11/15/22) Abnormal posture (11/15/22) Weakness (11/15/22) Arthrodesis status (11/15/22) Physical Therapy Treatment Note PT-OP-A Visit Information Start: 11/03/22 13:37 Freq: Status: Active Protocol: Document 11/15/22 10:36 [facility] (Rec: 11/15/22 11:39 [facility] [id number]) Out-Patient Physical Therapy Visit Information Visit Information Visit Type Treatment Note Visit Note 01/07 Visit Start Time 10:36 Visit Stop Time 11:30 Total Visit Minutes 54 Visit Number 3 Number of T[employer] PROTE[employer] SPECIALIST Visits 0 PT-OP-B Current Condition Start: 11/03/22 13:37 Freq: Status: Active Protocol: Document 11/08/22 10:35 [facility] (Rec: 11/08/22 11:30 [facility] [id number]) Current Condition History of Current Condition Onset Date neck pain about 12 years ago; balance 3 years ago or more Current Complaints Neck pain/head pain and balance issues History of Current Condition Pt reportsbroke his neck in [place] is an attack but was pushed out of the hospital too quickly before Xrays and was off for 6 days. 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 He was working [employer] at the same time. Pt had C3-6 fusion about 11 years ago. about 7 months later, he lost some of the muscle in post shoulders. Pt reports head pain on R side of head and R arm has some problems sometimes. 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 he has been doing balance exercises from [employer]. Pt has issue w/clavicle pressing on trachea and some things cause coughing. He started [employer] a while ago but stopped unsure why. He has managed it okay so far.He can feel the pressure when rolling in bed. B RC issues. Pt has hx of L HS tear about 9 years ago Prior Treatments and Tests Carotid Doppler: IMPRESSION: No hemodynamically significant stenosis is seen. No significant change from the prior. Massage therapy: helps Brain MRI: IMPRESSION: BRAIN MRI: 1. No infarct or other acute intracranial abnormality. 2. Mild cerebral volume loss and mild chronic white matter small vessel ischemic changes. BRAIN MR ANGIOGRAM: 1. No high-grade stenosis or occlusion of the central intracranial arteries. NECK MR ANGIOGRAM: 1. No high-grade stenosis or occlusion of the head and neck arteries. The carotid bulbs appear widely patent. Cervical CT: Bones: No fractures or dislocations. There is mild, approximately 3 mm of C2-C3, 2 mm of C6-C7 and 2 mm of C7-T1 degenerative anterolisthesis. Visualized superior ribs are intact. Postsurgical changes compatible with C4-C6 ACDF are noted. The orthopedic hardware is intact. No lucencies are identified the bone hardware interface. Spine degenerative disc disease and facet arthropathy. No significant central canal narrowing. Severe bilateral C3-C4, C4-C5 and C6-C7 neural foraminal narrowing. Severe left C5-C6 neural foraminal narrowing. Mild osteophytic degenerative changes are noted in the sternoclavicular joints bilaterally. No definite sternoclavicular joint effusions identified. No osseous erosive changes at the sternoclavicular joints. There is widening of the right acromioclavicular joint which could be due to prior acromioplasty; please correlate with surgical history. Soft tissues: Prevertebral soft tissues are normal in thickness. No paravertebral hematomas. No apical pneumothoraces. No soft tissue inflammation or fluid collections noted adjacent to the sternoclavicular joints. Treatment Goals Patient/Caregiver Goals improve strength & balance PT-OP-C Subjective Start: 11/03/22 13:37 Freq: Status: Active Protocol: Document 11/15/22 10:36 [facility] (Rec: 11/15/22 11:39 [facility] [id number]) OP-PT Subjective Patient Comments Patient Comments Pt reports he did well after last session PT-OP-D Balance Start: 11/03/22 13:37 Freq: Status: Active Protocol: Document 11/08/22 10:35 [facility] (Rec: 11/08/22 11:30 [facility] [id number]) Balance Tests Single Limb Standing Single Limb- Right 9 sec Single Limb- Left 5 sec PT-OP-E Functional Tests Start: 11/03/22 13:37 Freq: Status: Active Protocol: Document 11/08/22 10:35 [facility] (Rec: 11/08/22 11:30 [facility] [id number]) Functional Tests Dynamic Gait Index (DGI) Score 22 Functional Gait Assessment Score PT-OP-F Manual Assessment Start: 11/03/22 13:37 Freq: Status: Active Protocol: Document 11/08/22 10:35 [facility] (Rec: 11/08/22 11:30 [facility] [id number]) Manual Assessments Soft Tissue Assessment Soft Tissue Mobility Assessment R>L cervical and cranial tightness PT-OP-G Mobility & Gait Start: 11/03/22 13:37 Freq: Status: Active Protocol: Document 11/08/22 10:35 [facility] (Rec: 11/08/22 11:30 [facility] [id number]) OP Gait Assessment Comments Gait Comments dec push off PT-OP-J Posture/Palpation/Skin Start: 11/03/22 13:37 Freq: Status: Active Protocol: Document 11/08/22 10:35 [facility] (Rec: 11/08/22 11:30 [facility] [id number]) Posture Evaluation Comments Posture Comments fwd head and neck & inc kyphosis PT-OP-K Range of Motion Start: 11/03/22 13:37 Freq: Status: Active Protocol: Document 11/08/22 10:35 [facility] (Rec: 11/08/22 11:30 [facility] [id number]) Cervical Spine Range of Motion Cervical Spine Active Degrees Flexion 55 Extension 21 Rotation Left 36 Rotation Right 37 Lateral Flexion Left 10 Lateral Flexion Right 10 ROM Limitations Pain PT-OP-L Special Tests Start: 11/03/22 13:37 Freq: Status: Active Protocol: Document 11/08/22 10:35 [facility] (Rec: 11/08/22 11:30 [facility] [id number]) Special Tests Cervical Spine Special Tests Spurling's Test Test Results neg Vertebral Artery Test Results neg Alar Ligament Test Results neg Neural Special Tests- Upper Body Median Nerve Tension Test Results positive B Ulnar Nerve Tension Test Results neg B Radial Nerve Tension Test Results neg B PT-OP-M Strength Start: 11/03/22 13:37 Freq: Status: Active Protocol: Document 11/08/22 10:35 [facility] (Rec: 11/08/22 11:30 [facility] [id number]) Shoulder Strength Shoulder Manual Muscle Testing Right Flexion 3+ Fair+ Extension 4 Good Abduction (C5) 3+ Fair+ External Rotation 3+ Fair+ Internal Rotation 4+ Good+ Left Flexion 3+ Fair+ Extension 4 Good Abduction (C5) 3+ Fair+ External Rotation 3 Fair Internal Rotation 4+ Good+ Hip Strength Hip Manual Muscle Testing Right Flexion (L2) 4- Good- Extension (S1) 3+ Fair+ Abduction 4- Good- External Rotation 3+ Fair+ Internal Rotation 5 Normal Left Flexion (L2) 4- Good- Extension (S1) 3+ Fair+ Abduction 4- Good- External Rotation 3+ Fair+ Internal Rotation 5 Normal Knee Strength Knee Manual Muscle Testing Right Flexion (S2) 5 Normal Extension (L3) 5 Normal Left Flexion (S2) 5 Normal Extension (L3) 5 Normal Ankle/Foot Strength Ankle and Foot Manual Muscle Testing Right Dorsiflexion (L4) 5 Normal Plantarflexion (S1) 5 Normal Inversion 4+ Good+ Eversion (S1) 5 Normal Left Dorsiflexion (L4) 5 Normal Plantarflexion (S1) 5 Normal Inversion 4+ Good+ Eversion (S1) 5 Normal Comments PF tested seated B PT-OP-Q Treatments Start: 11/03/22 13:37 Freq: Status: Active Protocol: Document 11/15/22 10:36 [facility] (Rec: 11/15/22 11:39 [facility] [id number]) Gym Equipment Shuttle Balance red clips Details head turns when able (WBOS & fwd NBOS) Comments fwd & side: WBOS & NBOS fwd: staggered stance Therapeutic Exercises Sidelying Exercises open book Side bilateral Reps/Minutes 6 ea Sitting Exercises chin tucks Reps/Minutes 15 stretches Sitting Exercise Name 1. UT 2. LS Side bilateral Reps/Minutes 30 sec ea Standing Exercises rows Side bilateral Equipment Used L2 Reps/Minutes 15 Manual Therapy Treatment Soft Tissue Mobilization UT/LS Body Location B Mobilization Type Rolling Intensity/Depth Moderate SCM/scalenes Body Location B Mobilization Type Rolling Intensity/Depth Moderate Body Position Supine paraspinals Body Location B Mobilization Type Rolling,Strumming Intensity/Depth Moderate Body Position Supine Neuro Re-Education Treatment Balance Activities hurdles Details fwd Surface tpads btwn Equipment hurdles Reps/Duration 6 hurdles x8 PT-OP-R Modalities Start: 11/03/22 13:37 Freq: Status: Active Protocol: Document 11/15/22 10:36 [facility] (Rec: 11/15/22 11:39 [facility] [id number]) Hot Pack/Cold Pack Treatment Hot Pack Location cervical Patient Position Hooklying Treatment Duration (minutes) 15 PT-OP-T Assessment and Plan Start: 11/03/22 13:37 Freq: Status: Active Protocol: Document 11/15/22 10:36 [facility] (Rec: 11/15/22 11:39 [facility] [id number]) Physical Therapy Assessment Goals pain Manager Integration Goal (LTG) Pt will report worst pain in neck for a week to be no greater than 4/10. LTG Duration 01.31.23 Strength Short Term Goal (STG) Pt will be indep w/HEP STG Duration 12/29/22 Jail Goal (LTG) Pt will score at least 4+/5 on all LE strength to imrpove LE stability and improve balance LTG Duration 01/31 ROM Short Term Goal (STG) Pt will improve rotation B cervically to at least 45 deg. STG Duration 12/29/22 Manager Integration Goal (LTG) Pt will report min pain w/all ROM in cervical region. LTG Duration 01/31/23 SLS Jail Goal (LTG) Pt will be able to do SLS for 15 sec B. LTG Duration 01/31/23 Assessment Summary Assessment Pt did better with balance today and had added challenge of head utrns in WBOS on red clips. he needed min cues with prior ther ext. Physical Therapy Plan Frequency and Duration Frequency of Treatment 1-2x/wk Duration of treatment (weeks) 12 Plan of Care Start Date 11/08/22 Plan of Care End Date 01/31/23 Next Visit Focus/Plan Next Note Type Treatment Note Next Visit Plan cont red clips balance, SLS activities, uneven surfaces w/ hurdles, review rows, and stretches
--- NOTE | 2022-11-22 11:19 | PT.OTN ---
Current Diagnoses Cervicalgia (11/22/22) Other abnormalities of gait and mobility (11/22/22) Abnormal posture (11/22/22) Weakness (11/22/22) Arthrodesis status (11/22/22) Physical Therapy Treatment Note PT-OP-A Visit Information Start: 11/03/22 13:37 Freq: Status: Active Protocol: Document 11/22/22 10:33 [facility] (Rec: 11/22/22 11:18 [facility] [id number]) Out-Patient Physical Therapy Visit Information Visit Information Visit Type Treatment Note Visit Note 02/07 Visit Start Time 10:34 Visit Stop Time 11:28 Total Visit Minutes 54 Visit Number 4 Number of LINUX KERNEL ENGINEER Visits 0 PT-OP-B Current Condition Start: 11/03/22 13:37 Freq: Status: Active Protocol: Document 11/08/22 10:35 [facility] (Rec: 11/08/22 11:30 [facility] [id number]) Current Condition History of Current Condition Onset Date neck pain about 12 years ago; balance 3 years ago or more Current Complaints Neck pain/head pain and balance issues History of Current Condition Pt reportsbroke his neck in [place] is an attack but was pushed out of the hospital too quickly before Xrays and was off for 6 days. 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 He was working [employer] at the same time. Pt had C3-6 fusion about 11 years ago. about 7 months later, he lost some of the muscle in post shoulders. Pt reports head pain on R side of head and R arm has some problems sometimes. 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 he has been doing balance exercises from judo. Pt has issue w/clavicle pressing on trachea and some things cause coughing. He started [employer] a while ago but stopped unsure why. He has managed it okay so far.He can feel the pressure when rolling in bed. B RC issues. Pt has hx of L HS tear about 9 years ago Prior Treatments and Tests Carotid Doppler: IMPRESSION: No hemodynamically significant stenosis is seen. No significant change from the prior. Massage therapy: helps Brain MRI: IMPRESSION: BRAIN MRI: 1. No infarct or other acute intracranial abnormality. 2. Mild cerebral volume loss and mild chronic white matter small vessel ischemic changes. BRAIN MR ANGIOGRAM: 1. No high-grade stenosis or occlusion of the central intracranial arteries. NECK MR ANGIOGRAM: 1. No high-grade stenosis or occlusion of the head and neck arteries. The carotid bulbs appear widely patent. Cervical CT: Bones: No fractures or dislocations. There is mild, approximately 3 mm of C2-C3, 2 mm of C6-C7 and 2 mm of C7-T1 degenerative anterolisthesis. Visualized superior ribs are intact. Postsurgical changes compatible with C4-C6 ACDF are noted. The orthopedic hardware is intact. No lucencies are identified the bone hardware interface. Spine degenerative disc disease and facet arthropathy. No significant central canal narrowing. Severe bilateral C3-C4, C4-C5 and C6-C7 neural foraminal narrowing. Severe left C5-C6 neural foraminal narrowing. Mild osteophytic degenerative changes are noted in the sternoclavicular joints bilaterally. No definite sternoclavicular joint effusions identified. No osseous erosive changes at the sternoclavicular joints. There is widening of the right acromioclavicular joint which could be due to prior acromioplasty; please correlate with surgical history. Soft tissues: Prevertebral soft tissues are normal in thickness. No paravertebral hematomas. No apical pneumothoraces. No soft tissue inflammation or fluid collections noted adjacent to the sternoclavicular joints. Treatment Goals Patient/Caregiver Goals improve strength & balance PT-OP-C Subjective Start: 11/03/22 13:37 Freq: Status: Active Protocol: Document 11/22/22 10:33 [facility] (Rec: 11/22/22 11:18 [facility] [id number]) OP-PT Subjective Patient Comments Patient Comments Pt reports HR was elevated last week but MD gross told him to go get seen only if it oges over 100 PT-OP-D Balance Start: 11/03/22 13:37 Freq: Status: Active Protocol: Document 11/08/22 10:35 [facility] (Rec: 11/08/22 11:30 [facility] [id number]) Balance Tests Single Limb Standing Single Limb- Right 9 sec Single Limb- Left 5 sec PT-OP-E Functional Tests Start: 11/03/22 13:37 Freq: Status: Active Protocol: Document 11/08/22 10:35 [facility] (Rec: 11/08/22 11:30 [facility] [id number]) Functional Tests Dynamic Gait Index (DGI) Score 22 Functional Gait Assessment Score PT-OP-F Manual Assessment Start: 11/03/22 13:37 Freq: Status: Active Protocol: Document 11/08/22 10:35 [facility] (Rec: 11/08/22 11:30 [facility] [id number]) Manual Assessments Soft Tissue Assessment Soft Tissue Mobility Assessment R>L cervical and cranial tightness PT-OP-G Mobility & Gait Start: 11/03/22 13:37 Freq: Status: Active Protocol: Document 11/08/22 10:35 [facility] (Rec: 11/08/22 11:30 [facility] [id number]) OP Gait Assessment Comments Gait Comments dec push off PT-OP-J Posture/Palpation/Skin Start: 11/03/22 13:37 Freq: Status: Active Protocol: Document 11/08/22 10:35 [facility] (Rec: 11/08/22 11:30 [facility] [id number]) Posture Evaluation Comments Posture Comments fwd head and neck & inc kyphosis PT-OP-K Range of Motion Start: 11/03/22 13:37 Freq: Status: Active Protocol: Document 11/08/22 10:35 [facility] (Rec: 11/08/22 11:30 [facility] [id number]) Cervical Spine Range of Motion Cervical Spine Active Degrees Flexion 55 Extension 21 Rotation Left 36 Rotation Right 37 Lateral Flexion Left 10 Lateral Flexion Right 10 ROM Limitations Pain PT-OP-L Special Tests Start: 11/03/22 13:37 Freq: Status: Active Protocol: Document 11/08/22 10:35 [facility] (Rec: 11/08/22 11:30 [facility] [id number]) Special Tests Cervical Spine Special Tests Spurling's Test Test Results neg Vertebral Artery Test Results neg Alar Ligament Test Results neg Neural Special Tests- Upper Body Median Nerve Tension Test Results positive B Ulnar Nerve Tension Test Results neg B Radial Nerve Tension Test Results neg B PT-OP-M Strength Start: 11/03/22 13:37 Freq: Status: Active Protocol: Document 11/08/22 10:35 [facility] (Rec: 11/08/22 11:30 [facility] [id number]) Shoulder Strength Shoulder Manual Muscle Testing Right Flexion 3+ Fair+ Extension 4 Good Abduction (C5) 3+ Fair+ External Rotation 3+ Fair+ Internal Rotation 4+ Good+ Left Flexion 3+ Fair+ Extension 4 Good Abduction (C5) 3+ Fair+ External Rotation 3 Fair Internal Rotation 4+ Good+ Hip Strength Hip Manual Muscle Testing Right Flexion (L2) 4- Good- Extension (S1) 3+ Fair+ Abduction 4- Good- External Rotation 3+ Fair+ Internal Rotation 5 Normal Left Flexion (L2) 4- Good- Extension (S1) 3+ Fair+ Abduction 4- Good- External Rotation 3+ Fair+ Internal Rotation 5 Normal Knee Strength Knee Manual Muscle Testing Right Flexion (S2) 5 Normal Extension (L3) 5 Normal Left Flexion (S2) 5 Normal Extension (L3) 5 Normal Ankle/Foot Strength Ankle and Foot Manual Muscle Testing Right Dorsiflexion (L4) 5 Normal Plantarflexion (S1) 5 Normal Inversion 4+ Good+ Eversion (S1) 5 Normal Left Dorsiflexion (L4) 5 Normal Plantarflexion (S1) 5 Normal Inversion 4+ Good+ Eversion (S1) 5 Normal Comments PF tested seated B PT-OP-Q Treatments Start: 11/03/22 13:37 Freq: Status: Active Protocol: Document 11/22/22 10:33 [facility] (Rec: 11/22/22 11:18 [facility] [id number]) Gym Equipment Shuttle Balance red clips Details head turns when able (WBOS & NBOS) Comments fwd & side: WBOS & NBOS fwd: staggered stance Therapeutic Exercises Sitting Exercises chin tucks Reps/Minutes 15 Standing Exercises rows Standing Exercise Name B row & B ext Side bilateral Equipment Used L2 Reps/Minutes 15 ea Manual Therapy Treatment Soft Tissue Mobilization SOR Mobilization Type Sustained Pressure UT/LS Body Location B Mobilization Type Rolling Intensity/Depth Moderate SCM/scalenes Body Location B Mobilization Type Rolling Intensity/Depth Moderate Body Position Supine paraspinals Body Location B Mobilization Type Rolling,Strumming Intensity/Depth Moderate Body Position Supine Neuro Re-Education Treatment Balance Activities SLS Comments 1. alt toe taps to 12 in step x10 B 2. SLS w/alt LE ball roll hurdles Details fwd Surface tpads btwn Equipment hurdles Reps/Duration 6 hurdles x6 PT-OP-R Modalities Start: 11/03/22 13:37 Freq: Status: Active Protocol: Document 11/22/22 10:33 [facility] (Rec: 11/22/22 11:18 [facility] [id number]) Hot Pack/Cold Pack Treatment Hot Pack Location cervical Patient Position Hooklying Treatment Duration (minutes) 15 PT-OP-T Assessment and Plan Start: 11/03/22 13:37 Freq: Status: Active Protocol: Document 11/22/22 10:33 [facility] (Rec: 11/22/22 11:18 [facility] [id number]) Physical Therapy Assessment Goals pain Usp Goal (LTG) Pt will report worst pain in neck for a week to be no greater than 4/10. LTG Duration 01.31.23 Strength Short Term Goal (STG) Pt will be indep w/HEP STG Duration 12/29/22 Usp Goal (LTG) Pt will score at least 4+/5 on all LE strength to imrpove LE stability and improve balance LTG Duration 01/31 ROM Short Term Goal (STG) Pt will improve rotation B cervically to at least 45 deg. STG Duration 12/29/22 Health Diagnostics Teacher Goal (LTG) Pt will report min pain w/all ROM in cervical region. LTG Duration 01/31/23 SLS Health Diagnostics Teacher Goal (LTG) Pt will be able to do SLS for 15 sec B. LTG Duration 01/31/23 Assessment Summary Assessment Pt required cues for form w/ cervical retraction and required cues w/exercises to work on more slow and controlled motion Physical Therapy Plan Frequency and Duration Frequency of Treatment 1-2x/wk Duration of treatment (weeks) 12 Plan of Care Start Date 11/08/22 Plan of Care End Date 01/31/23 Next Visit Focus/Plan Next Note Type Treatment Note Next Visit Plan cont red clips balance, SLS activities, uneven surfaces w/ hurdles, review rows, and stretches, advance cervical stabiltiy
--- NOTE | 2022-11-25 13:01 | PT.OTN ---
Current Diagnoses Cervicalgia (11/25/22) Other abnormalities of gait and mobility (11/25/22) Abnormal posture (11/25/22) Weakness (11/25/22) Arthrodesis status (11/25/22) Physical Therapy Treatment Note PT-OP-A Visit Information Start: 11/03/22 13:37 Freq: Status: Active Protocol: Document 11/25/22 10:51 [facility] (Rec: 11/25/22 13:01 [facility] [id number]) Out-Patient Physical Therapy Visit Information Visit Information Visit Type Treatment Note Visit Note 03/09 Visit Start Time 10:37 Visit Stop Time 11:15 Total Visit Minutes 38 Visit Number 5 Number of INSTRUCTIONAL SYSTEMS SPECIALIST Visits 0 PT-OP-B Current Condition Start: 11/03/22 13:37 Freq: Status: Active Protocol: Document 11/08/22 10:35 [facility] (Rec: 11/08/22 11:30 [facility] [id number]) Current Condition History of Current Condition Onset Date neck pain about 12 years ago; balance 3 years ago or more Current Complaints Neck pain/head pain and balance issues History of Current Condition Pt reportsbroke his neck in [place] is an attack but was pushed out of the hospital too quickly before Xrays and was off for 6 days. 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 He was working [employer] at the same time. Pt had C3-6 fusion about 11 years ago. about 7 months later, he lost some of the muscle in post shoulders. Pt reports head pain on R side of head and R arm has some problems sometimes. 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 he has been doing balance exercises from [employer]. Pt has issue w/clavicle pressing on trachea and some things cause coughing. He started [employer] a while ago but stopped unsure why. He has managed it okay so far.He can feel the pressure when rolling in bed. B RC issues. Pt has hx of L HS tear about 9 years ago Prior Treatments and Tests Carotid Doppler: IMPRESSION: No hemodynamically significant stenosis is seen. No significant change from the prior. Massage therapy: helps Brain MRI: IMPRESSION: BRAIN MRI: 1. No infarct or other acute intracranial abnormality. 2. Mild cerebral volume loss and mild chronic white matter small vessel ischemic changes. BRAIN MR ANGIOGRAM: 1. No high-grade stenosis or occlusion of the central intracranial arteries. NECK MR ANGIOGRAM: 1. No high-grade stenosis or occlusion of the head and neck arteries. The carotid bulbs appear widely patent. Cervical CT: Bones: No fractures or dislocations. There is mild, approximately 3 mm of C2-C3, 2 mm of C6-C7 and 2 mm of C7-T1 degenerative anterolisthesis. Visualized superior ribs are intact. Postsurgical changes compatible with C4-C6 ACDF are noted. The orthopedic hardware is intact. No lucencies are identified the bone hardware interface. Spine degenerative disc disease and facet arthropathy. No significant central canal narrowing. Severe bilateral C3-C4, C4-C5 and C6-C7 neural foraminal narrowing. Severe left C5-C6 neural foraminal narrowing. Mild osteophytic degenerative changes are noted in the sternoclavicular joints bilaterally. No definite sternoclavicular joint effusions identified. No osseous erosive changes at the sternoclavicular joints. There is widening of the right acromioclavicular joint which could be due to prior acromioplasty; please correlate with surgical history. Soft tissues: Prevertebral soft tissues are normal in thickness. No paravertebral hematomas. No apical pneumothoraces. No soft tissue inflammation or fluid collections noted adjacent to the sternoclavicular joints. Treatment Goals Patient/Caregiver Goals improve strength & balance PT-OP-C Subjective Start: 11/03/22 13:37 Freq: Status: Active Protocol: Document 11/25/22 10:51 [facility] (Rec: 11/25/22 13:01 [facility] [id number]) OP-PT Subjective Patient Comments Patient Comments Pt reports L ant thigh still uncomfortable PT-OP-D Balance Start: 11/03/22 13:37 Freq: Status: Active Protocol: Document 11/08/22 10:35 [facility] (Rec: 11/08/22 11:30 [facility] [id number]) Balance Tests Single Limb Standing Single Limb- Right 9 sec Single Limb- Left 5 sec PT-OP-E Functional Tests Start: 11/03/22 13:37 Freq: Status: Active Protocol: Document 11/08/22 10:35 [facility] (Rec: 11/08/22 11:30 [facility] [id number]) Functional Tests Dynamic Gait Index (DGI) Score 22 Functional Gait Assessment Score PT-OP-F Manual Assessment Start: 11/03/22 13:37 Freq: Status: Active Protocol: Document 11/08/22 10:35 [facility] (Rec: 11/08/22 11:30 [facility] [id number]) Manual Assessments Soft Tissue Assessment Soft Tissue Mobility Assessment R>L cervical and cranial tightness PT-OP-G Mobility & Gait Start: 11/03/22 13:37 Freq: Status: Active Protocol: Document 11/08/22 10:35 [facility] (Rec: 11/08/22 11:30 [facility] [id number]) OP Gait Assessment Comments Gait Comments dec push off PT-OP-J Posture/Palpation/Skin Start: 11/03/22 13:37 Freq: Status: Active Protocol: Document 11/08/22 10:35 [facility] (Rec: 11/08/22 11:30 [facility] [id number]) Posture Evaluation Comments Posture Comments fwd head and neck & inc kyphosis PT-OP-K Range of Motion Start: 11/03/22 13:37 Freq: Status: Active Protocol: Document 11/08/22 10:35 [facility] (Rec: 11/08/22 11:30 [facility] [id number]) Cervical Spine Range of Motion Cervical Spine Active Degrees Flexion 55 Extension 21 Rotation Left 36 Rotation Right 37 Lateral Flexion Left 10 Lateral Flexion Right 10 ROM Limitations Pain PT-OP-L Special Tests Start: 11/03/22 13:37 Freq: Status: Active Protocol: Document 11/08/22 10:35 [facility] (Rec: 11/08/22 11:30 [facility] [id number]) Special Tests Cervical Spine Special Tests Spurling's Test Test Results neg Vertebral Artery Test Results neg Alar Ligament Test Results neg Neural Special Tests- Upper Body Median Nerve Tension Test Results positive B Ulnar Nerve Tension Test Results neg B Radial Nerve Tension Test Results neg B PT-OP-M Strength Start: 11/03/22 13:37 Freq: Status: Active Protocol: Document 11/08/22 10:35 [facility] (Rec: 11/08/22 11:30 [facility] [id number]) Shoulder Strength Shoulder Manual Muscle Testing Right Flexion 3+ Fair+ Extension 4 Good Abduction (C5) 3+ Fair+ External Rotation 3+ Fair+ Internal Rotation 4+ Good+ Left Flexion 3+ Fair+ Extension 4 Good Abduction (C5) 3+ Fair+ External Rotation 3 Fair Internal Rotation 4+ Good+ Hip Strength Hip Manual Muscle Testing Right Flexion (L2) 4- Good- Extension (S1) 3+ Fair+ Abduction 4- Good- External Rotation 3+ Fair+ Internal Rotation 5 Normal Left Flexion (L2) 4- Good- Extension (S1) 3+ Fair+ Abduction 4- Good- External Rotation 3+ Fair+ Internal Rotation 5 Normal Knee Strength Knee Manual Muscle Testing Right Flexion (S2) 5 Normal Extension (L3) 5 Normal Left Flexion (S2) 5 Normal Extension (L3) 5 Normal Ankle/Foot Strength Ankle and Foot Manual Muscle Testing Right Dorsiflexion (L4) 5 Normal Plantarflexion (S1) 5 Normal Inversion 4+ Good+ Eversion (S1) 5 Normal Left Dorsiflexion (L4) 5 Normal Plantarflexion (S1) 5 Normal Inversion 4+ Good+ Eversion (S1) 5 Normal Comments PF tested seated B PT-OP-Q Treatments Start: 11/03/22 13:37 Freq: Status: Active Protocol: Document 11/25/22 10:51 [facility] (Rec: 11/25/22 13:01 [facility] [id number]) Gym Equipment Shuttle Balance red clips Details head turns Comments fwd & side: WBOS & NBOS fwd: staggered stance Therapeutic Exercises Supine Exercises axial elonation Reps/Minutes 5 sec x8 core engagement Supine Exercise Name B flex isometric Side bilateral Reps/Minutes 2x15 sec Sitting Exercises stretches Sitting Exercise Name 1. HS 2. figure 4 Side left Reps/Minutes 30 sec ea Standing Exercises stretch Standing Exercise Name quad on stool Side left Equipment Used rail Reps/Minutes 1 min Manual Therapy Treatment Soft Tissue Mobilization SOR Mobilization Type Sustained Pressure UT/LS Body Location B Mobilization Type Rolling Intensity/Depth Moderate SCM/scalenes Body Location B Mobilization Type Rolling Intensity/Depth Moderate Body Position Supine paraspinals Body Location B Mobilization Type Rolling,Strumming Intensity/Depth Moderate Body Position Supine Joint Mobilizations Cervical Joint C 1 transerse R Grade I PT-OP-R Modalities Start: 11/03/22 13:37 Freq: Status: Active Protocol: Document 11/22/22 10:33 [facility] (Rec: 11/22/22 11:18 [facility] [id number]) Hot Pack/Cold Pack Treatment Hot Pack Location cervical Patient Position Hooklying Treatment Duration (minutes) 15 PT-OP-T Assessment and Plan Start: 11/03/22 13:37 Freq: Status: Active Protocol: Document 11/25/22 10:51 [facility] (Rec: 11/25/22 13:01 [facility] [id number]) Physical Therapy Assessment Goals pain Pot Liner Goal (LTG) Pt will report worst pain in neck for a week to be no greater than 4/10. LTG Duration 01.31.23 Strength Short Term Goal (STG) Pt will be indep w/HEP STG Duration 12/29/22 Jail Goal (LTG) Pt will score at least 4+/5 on all LE strength to imrpove LE stability and improve balance LTG Duration 01/31 ROM Short Term Goal (STG) Pt will improve rotation B cervically to at least 45 deg. STG Duration 12/29/22 Pot Liner Goal (LTG) Pt will report min pain w/all ROM in cervical region. LTG Duration 01/31/23 SLS Jail Goal (LTG) Pt will be able to do SLS for 15 sec B. LTG Duration 01/31/23 Assessment Summary Assessment Pt did well with exercsies. He is doing well with balance and is showing less difficulty and challenge w/that. he reports relief w/manual. Physical Therapy Plan Frequency and Duration Frequency of Treatment 1-2x/wk Duration of treatment (weeks) 12 Plan of Care Start Date 11/08/22 Plan of Care End Date 01/31/23 Next Visit Focus/Plan Next Note Type Treatment Note Next Visit Plan cont red clips balance, SLS activities, uneven surfaces w/ hurdles, advance cervical stabiltiy
--- NOTE | 2022-12-02 13:30 | PT.OTN ---
Current Diagnoses Cervicalgia (12/02/22) Other abnormalities of gait and mobility (12/02/22) Abnormal posture (12/02/22) Weakness (12/02/22) Arthrodesis status (12/02/22) Physical Therapy Treatment Note PT-OP-A Visit Information Start: 11/03/22 13:37 Freq: Status: Active Protocol: Document 12/02/22 09:00 LRN (Rec: 12/02/22 09:43 LRN [id number]) Out-Patient Physical Therapy Visit Information Visit Information Visit Type Treatment Note Visit Start Time 09:00 Visit Stop Time 09:38 Total Visit Minutes 38 Visit Number 6 PT-OP-B Current Condition Start: 11/03/22 13:37 Freq: Status: Active Protocol: Document 11/08/22 10:35 [facility] (Rec: 11/08/22 11:30 [facility] [id number]) Current Condition History of Current Condition Onset Date neck pain about 12 years ago; balance 3 years ago or more Current Complaints Neck pain/head pain and balance issues History of Current Condition Pt reportsbroke his neck in [place] is an attack but was pushed out of the hospital too quickly before Xrays and was off for 6 days. 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 He was working [employer]ing at the same time. Pt had C3-6 fusion about 11 years ago. about 7 months later, he lost some of the muscle in post shoulders. Pt reports head pain on R side of head and R arm has some problems sometimes. 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 he has been doing balance exercises from [employer]. Pt has issue w/clavicle pressing on trachea and some things cause coughing. 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 He has managed it okay so far.He can feel the pressure when rolling in bed. B RC issues. Pt has hx of L HS tear about 9 years ago Prior Treatments and Tests Carotid Doppler: IMPRESSION: No hemodynamically significant stenosis is seen. No significant change from the prior. Massage therapy: helps Brain MRI: IMPRESSION: BRAIN MRI: 1. No infarct or other acute intracranial abnormality. 2. Mild cerebral volume loss and mild chronic white matter small vessel ischemic changes. BRAIN MR ANGIOGRAM: 1. No high-grade stenosis or occlusion of the central intracranial arteries. NECK MR ANGIOGRAM: 1. No high-grade stenosis or occlusion of the head and neck arteries. The carotid bulbs appear widely patent. Cervical CT: Bones: No fractures or dislocations. There is mild, approximately 3 mm of C2-C3, 2 mm of C6-C7 and 2 mm of C7-T1 degenerative anterolisthesis. Visualized superior ribs are intact. Postsurgical changes compatible with C4-C6 ACDF are noted. The orthopedic hardware is intact. No lucencies are identified the bone hardware interface. Spine degenerative disc disease and facet arthropathy. No significant central canal narrowing. Severe bilateral C3-C4, C4-C5 and C6-C7 neural foraminal narrowing. Severe left C5-C6 neural foraminal narrowing. Mild osteophytic degenerative changes are noted in the sternoclavicular joints bilaterally. No definite sternoclavicular joint effusions identified. No osseous erosive changes at the sternoclavicular joints. There is widening of the right acromioclavicular joint which could be due to prior acromioplasty; please correlate with surgical history. Soft tissues: Prevertebral soft tissues are normal in thickness. No paravertebral hematomas. No apical pneumothoraces. No soft tissue inflammation or fluid collections noted adjacent to the sternoclavicular joints. Treatment Goals Patient/Caregiver Goals improve strength & balance PT-OP-C Subjective Start: 11/03/22 13:37 Freq: Status: Active Protocol: Document 12/02/22 09:00 LRN (Rec: 12/02/22 09:43 LRN [id number]) OP-PT Subjective Patient Comments Patient Comments No change. Neck still bothers him once in a while. Working in the back yard. Have not fallen down in the philip. Can move around in the shower easier. His toe/heel walk is better; therefore overall improvement in balance. Having L UNI-knee pain. PT-OP-D Balance Start: 11/03/22 13:37 Freq: Status: Active Protocol: Document 11/08/22 10:35 LR (Rec: 11/08/22 11:30 [facility] [id number]) Balance Tests Single Limb Standing Single Limb- Right 9 sec Single Limb- Left 5 sec PT-OP-E Functional Tests Start: 11/03/22 13:37 Freq: Status: Active Protocol: Document 11/08/22 10:35 [facility] (Rec: 11/08/22 11:30 [facility] [id number]) Functional Tests Dynamic Gait Index (DGI) Score 22 Functional Gait Assessment Score PT-OP-F Manual Assessment Start: 11/03/22 13:37 Freq: Status: Active Protocol: Document 11/08/22 10:35 [facility] (Rec: 11/08/22 11:30 [facility] [id number]) Manual Assessments Soft Tissue Assessment Soft Tissue Mobility Assessment R>L cervical and cranial tightness PT-OP-G Mobility & Gait Start: 11/03/22 13:37 Freq: Status: Active Protocol: Document 11/08/22 10:35 [facility] (Rec: 11/08/22 11:30 [facility] [id number]) OP Gait Assessment Comments Gait Comments dec push off PT-OP-J Posture/Palpation/Skin Start: 11/03/22 13:37 Freq: Status: Active Protocol: Document 11/08/22 10:35 [facility] (Rec: 11/08/22 11:30 [facility] [id number]) Posture Evaluation Comments Posture Comments fwd head and neck & inc kyphosis PT-OP-K Range of Motion Start: 11/03/22 13:37 Freq: Status: Active Protocol: Document 11/08/22 10:35 [facility] (Rec: 11/08/22 11:30 [facility] [id number]) Cervical Spine Range of Motion Cervical Spine Active Degrees Flexion 55 Extension 21 Rotation Left 36 Rotation Right 37 Lateral Flexion Left 10 Lateral Flexion Right 10 ROM Limitations Pain PT-OP-L Special Tests Start: 11/03/22 13:37 Freq: Status: Active Protocol: Document 11/08/22 10:35 [facility] (Rec: 11/08/22 11:30 [facility] [id number]) Special Tests Cervical Spine Special Tests Spurling's Test Test Results neg Vertebral Artery Test Results neg Alar Ligament Test Results neg Neural Special Tests- Upper Body Median Nerve Tension Test Results positive B Ulnar Nerve Tension Test Results neg B Radial Nerve Tension Test Results neg B PT-OP-M Strength Start: 11/03/22 13:37 Freq: Status: Active Protocol: Document 11/08/22 10:35 [facility] (Rec: 11/08/22 11:30 [facility] [id number]) Shoulder Strength Shoulder Manual Muscle Testing Right Flexion 3+ Fair+ Extension 4 Good Abduction (C5) 3+ Fair+ External Rotation 3+ Fair+ Internal Rotation 4+ Good+ Left Flexion 3+ Fair+ Extension 4 Good Abduction (C5) 3+ Fair+ External Rotation 3 Fair Internal Rotation 4+ Good+ Hip Strength Hip Manual Muscle Testing Right Flexion (L2) 4- Good- Extension (S1) 3+ Fair+ Abduction 4- Good- External Rotation 3+ Fair+ Internal Rotation 5 Normal Left Flexion (L2) 4- Good- Extension (S1) 3+ Fair+ Abduction 4- Good- External Rotation 3+ Fair+ Internal Rotation 5 Normal Knee Strength Knee Manual Muscle Testing Right Flexion (S2) 5 Normal Extension (L3) 5 Normal Left Flexion (S2) 5 Normal Extension (L3) 5 Normal Ankle/Foot Strength Ankle and Foot Manual Muscle Testing Right Dorsiflexion (L4) 5 Normal Plantarflexion (S1) 5 Normal Inversion 4+ Good+ Eversion (S1) 5 Normal Left Dorsiflexion (L4) 5 Normal Plantarflexion (S1) 5 Normal Inversion 4+ Good+ Eversion (S1) 5 Normal Comments PF tested seated B PT-OP-Q Treatments Start: 11/03/22 13:37 Freq: Status: Active Protocol: Document 12/02/22 09:00 LRN (Rec: 12/02/22 09:43 LRN [id number]) Gym Equipment Shuttle Balance red clips Details head turns, arm swings Comments fwd: staggered stance Therapeutic Exercises Supine Exercises axial elonation Reps/Minutes 5 sec x8 core engagement Supine Exercise Name B flex isometric - hands/knees push Side bilateral Reps/Minutes 10 sec x 10 Sitting Exercises Axial Elongation Sitting Exercise Name Elongation with slight resistance for SB [place] Side bilateral Reps/Minutes 5 SH x 8 stretches Sitting Exercise Name 1. HS 2. Fig 4 Side left Reps/Minutes 30 sec ea Comments Break btn stretch due to uniknee pain. Manual Therapy Treatment Soft Tissue Mobilization UT/LS Body Location R Mobilization Type Rolling Intensity/Depth Moderate SCM/scalenes Body Location B Mobilization Type Rolling Intensity/Depth Moderate Body Position Supine paraspinals Body Location L Mobilization Type Rolling,Strumming Intensity/Depth Moderate Body Position Supine Neuro Re-Education Treatment Balance Activities SLS Comments 2. SLS w/alt LE ball roll PT-OP-R Modalities Start: 11/03/22 13:37 Freq: Status: Active Protocol: Document 11/22/22 10:33 LR (Rec: 11/22/22 11:18 LR [id number]) Hot Pack/Cold Pack Treatment Hot Pack Location cervical Patient Position Hooklying Treatment Duration (minutes) 15 PT-OP-T Assessment and Plan Start: 11/03/22 13:37 Freq: Status: Active Protocol: Document 12/02/22 09:00 LRN (Rec: 12/02/22 09:43 LRN [id number]) Physical Therapy Assessment Goals pain Soil Expert Goal (LTG) Pt will report worst pain in neck for a week to be no greater than 4/10. LTG Duration 01.31.23 Strength Short Term Goal (STG) Pt will be indep w/HEP STG Duration 12/29/22 Penitentiary Goal (LTG) Pt will score at least 4+/5 on all LE strength to imrpove LE stability and improve balance LTG Duration 01/31 ROM Short Term Goal (STG) Pt will improve rotation B cervically to at least 45 deg. STG Duration 12/29/22 Penitentiary Goal (LTG) Pt will report min pain w/all ROM in cervical region. LTG Duration 01/31/23 SLS Penitentiary Goal (LTG) Pt will be able to do SLS for 15 sec B. LTG Duration 01/31/23 Assessment Summary Assessment Pt balance improving as subjectively pt notes no falling down in the philip and less instability feeling while in the shower. He still needs to steady himself against the shower tang for safety. Physical Therapy Plan Frequency and Duration Frequency of Treatment 1-2x/wk Duration of treatment (weeks) 12 Plan of Care Start Date 11/08/22 Plan of Care End Date 01/31/23 Next Visit Focus/Plan Next Note Type Treatment Note Next Visit Plan Cont red clips balance, SLS activities, uneven surfaces w/ hurdles, advance cervical stability as tolerated.
--- NOTE | 2022-12-09 16:58 | PT.OTN ---
Current Diagnoses Cervicalgia (12/09/22) Other abnormalities of gait and mobility (12/09/22) Abnormal posture (12/09/22) Weakness (12/09/22) Arthrodesis status (12/09/22) Physical Therapy Treatment Note PT-OP-A Visit Information Start: 11/03/22 13:37 Freq: Status: Active Protocol: Document 12/09/22 13:04 LRN (Rec: 12/09/22 13:43 LRN [id number]) Out-Patient Physical Therapy Visit Information Visit Information Visit Type Treatment Note Visit Start Time 13:04 Visit Stop Time 13:42 Total Visit Minutes 40 Visit Number 7 PT-OP-B Current Condition Start: 11/03/22 13:37 Freq: Status: Active Protocol: Document 11/08/22 10:35 [facility] (Rec: 11/08/22 11:30 [facility] [id number]) Current Condition History of Current Condition Onset Date neck pain about 12 years ago; balance 3 years ago or more Current Complaints Neck pain/head pain and balance issues History of Current Condition Pt reportsbroke his neck in [place] is an attack but was pushed out of the hospital too quickly before Xrays and was off for 6 days. 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 He was working [employer] at the same time. Pt had C3-6 fusion about 11 years ago. about 7 months later, he lost some of the muscle in post shoulders. Pt reports head pain on R side of head and R arm has some problems sometimes. 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 he has been doing balance exercises from [employer]. Pt has issue w/clavicle pressing on trachea and some things cause coughing. 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 He has managed it okay so far.He can feel the pressure when rolling in bed. B RC issues. Pt has hx of L HS tear about 9 years ago Prior Treatments and Tests Carotid Doppler: IMPRESSION: No hemodynamically significant stenosis is seen. No significant change from the prior. Massage therapy: helps Brain MRI: IMPRESSION: BRAIN MRI: 1. No infarct or other acute intracranial abnormality. 2. Mild cerebral volume loss and mild chronic white matter small vessel ischemic changes. BRAIN MR ANGIOGRAM: 1. No high-grade stenosis or occlusion of the central intracranial arteries. NECK MR ANGIOGRAM: 1. No high-grade stenosis or occlusion of the head and neck arteries. The carotid bulbs appear widely patent. Cervical CT: Bones: No fractures or dislocations. There is mild, approximately 3 mm of C2-C3, 2 mm of C6-C7 and 2 mm of C7-T1 degenerative anterolisthesis. Visualized superior ribs are intact. Postsurgical changes compatible with C4-C6 ACDF are noted. The orthopedic hardware is intact. No lucencies are identified the bone hardware interface. Spine degenerative disc disease and facet arthropathy. No significant central canal narrowing. Severe bilateral C3-C4, C4-C5 and C6-C7 neural foraminal narrowing. Severe left C5-C6 neural foraminal narrowing. Mild osteophytic degenerative changes are noted in the sternoclavicular joints bilaterally. No definite sternoclavicular joint effusions identified. No osseous erosive changes at the sternoclavicular joints. There is widening of the right acromioclavicular joint which could be due to prior acromioplasty; please correlate with surgical history. Soft tissues: Prevertebral soft tissues are normal in thickness. No paravertebral hematomas. No apical pneumothoraces. No soft tissue inflammation or fluid collections noted adjacent to the sternoclavicular joints. Treatment Goals Patient/Caregiver Goals improve strength & balance PT-OP-C Subjective Start: 11/03/22 13:37 Freq: Status: Active Protocol: Document 12/09/22 13:04 LRN (Rec: 12/09/22 13:43 N [id number]) OP-PT Subjective Patient Comments Patient Comments Everything is going okay. L knee hurts, has ortho appt the . Neck bothers him once in a while. R now has intermittent R ear and neck pain, rated 3-4/10. PT-OP-D Balance Start: 11/03/22 13:37 Freq: Status: Active Protocol: Document 11/08/22 10:35 LR (Rec: 11/08/22 11:30 [facility] [id number]) Balance Tests Single Limb Standing Single Limb- Right 9 sec Single Limb- Left 5 sec PT-OP-E Functional Tests Start: 11/03/22 13:37 Freq: Status: Active Protocol: Document 11/08/22 10:35 LR (Rec: 11/08/22 11:30 [facility] [id number]) Functional Tests Dynamic Gait Index (DGI) Score 22 Functional Gait Assessment Score PT-OP-F Manual Assessment Start: 11/03/22 13:37 Freq: Status: Active Protocol: Document 11/08/22 10:35 [facility] (Rec: 11/08/22 11:30 [facility] [id number]) Manual Assessments Soft Tissue Assessment Soft Tissue Mobility Assessment R>L cervical and cranial tightness PT-OP-G Mobility & Gait Start: 11/03/22 13:37 Freq: Status: Active Protocol: Document 11/08/22 10:35 [facility] (Rec: 11/08/22 11:30 [facility] [id number]) OP Gait Assessment Comments Gait Comments dec push off PT-OP-J Posture/Palpation/Skin Start: 11/03/22 13:37 Freq: Status: Active Protocol: Document 11/08/22 10:35 [facility] (Rec: 11/08/22 11:30 [facility] [id number]) Posture Evaluation Comments Posture Comments fwd head and neck & inc kyphosis PT-OP-K Range of Motion Start: 11/03/22 13:37 Freq: Status: Active Protocol: Document 11/08/22 10:35 [facility] (Rec: 11/08/22 11:30 [facility] [id number]) Cervical Spine Range of Motion Cervical Spine Active Degrees Flexion 55 Extension 21 Rotation Left 36 Rotation Right 37 Lateral Flexion Left 10 Lateral Flexion Right 10 ROM Limitations Pain PT-OP-L Special Tests Start: 11/03/22 13:37 Freq: Status: Active Protocol: Document 11/08/22 10:35 [facility] (Rec: 11/08/22 11:30 [facility] [id number]) Special Tests Cervical Spine Special Tests Spurling's Test Test Results neg Vertebral Artery Test Results neg Alar Ligament Test Results neg Neural Special Tests- Upper Body Median Nerve Tension Test Results positive B Ulnar Nerve Tension Test Results neg B Radial Nerve Tension Test Results neg B PT-OP-M Strength Start: 11/03/22 13:37 Freq: Status: Active Protocol: Document 11/08/22 10:35 [facility] (Rec: 11/08/22 11:30 [facility] [id number]) Shoulder Strength Shoulder Manual Muscle Testing Right Flexion 3+ Fair+ Extension 4 Good Abduction (C5) 3+ Fair+ External Rotation 3+ Fair+ Internal Rotation 4+ Good+ Left Flexion 3+ Fair+ Extension 4 Good Abduction (C5) 3+ Fair+ External Rotation 3 Fair Internal Rotation 4+ Good+ Hip Strength Hip Manual Muscle Testing Right Flexion (L2) 4- Good- Extension (S1) 3+ Fair+ Abduction 4- Good- External Rotation 3+ Fair+ Internal Rotation 5 Normal Left Flexion (L2) 4- Good- Extension (S1) 3+ Fair+ Abduction 4- Good- External Rotation 3+ Fair+ Internal Rotation 5 Normal Knee Strength Knee Manual Muscle Testing Right Flexion (S2) 5 Normal Extension (L3) 5 Normal Left Flexion (S2) 5 Normal Extension (L3) 5 Normal Ankle/Foot Strength Ankle and Foot Manual Muscle Testing Right Dorsiflexion (L4) 5 Normal Plantarflexion (S1) 5 Normal Inversion 4+ Good+ Eversion (S1) 5 Normal Left Dorsiflexion (L4) 5 Normal Plantarflexion (S1) 5 Normal Inversion 4+ Good+ Eversion (S1) 5 Normal Comments PF tested seated B PT-OP-Q Treatments Start: 11/03/22 13:37 Freq: Status: Active Protocol: Document 12/09/22 13:04 [facility] (Rec: 12/09/22 13:43 [facility] [id number]) Gym Equipment Shuttle Balance red clips Details head turns, arm swings Comments Stances: feet neutral, staggered, and obliques neutral. Manual Therapy Treatment Soft Tissue Mobilization UT/LS Body Location R Mobilization Type Rolling Intensity/Depth Moderate paraspinals Body Location L Mobilization Type Rolling,Strumming Intensity/Depth Moderate Body Position Supine Neuro Re-Education Treatment Balance Activities SLS Details SLS bilaterally Surface Soft (Black mat) Equipment Black mat Comments 1. SLS w/alt LE ball roll. tandem stance Details Tandem Surface Soft (Black mat) Equipment Black mat hurdles Details fwd Surface Level and soft (black mat) Equipment hurdles, Black mat Reps/Duration 6 hurdles x6 PT-OP-R Modalities Start: 11/03/22 13:37 Freq: Status: Active Protocol: Document 11/22/22 10:33 [facility] (Rec: 11/22/22 11:18 [facility] [id number]) Hot Pack/Cold Pack Treatment Hot Pack Location cervical Patient Position Hooklying Treatment Duration (minutes) 15 PT-OP-T Assessment and Plan Start: 11/03/22 13:37 Freq: Status: Active Protocol: Document 12/09/22 13:04 LRN (Rec: 12/09/22 13:43 LRN [id number]) Physical Therapy Assessment Goals pain Senior Living Goal (LTG) Pt will report worst pain in neck for a week to be no greater than 4/10. LTG Duration 01.31.23 Strength Short Term Goal (STG) Pt will be indep w/HEP STG Duration 12/29/22 Filterer Goal (LTG) Pt will score at least 4+/5 on all LE strength to imrpove LE stability and improve balance LTG Duration 01/31 ROM Short Term Goal (STG) Pt will improve rotation B cervically to at least 45 deg. STG Duration 12/29/22 Filterer Goal (LTG) Pt will report min pain w/all ROM in cervical region. LTG Duration 01/31/23 SLS Senior Living Goal (LTG) Pt will be able to do SLS for 15 sec B. LTG Duration 01/31/23 Assessment Summary Assessment Pt has some difficulty with oblique standing on Shuttle Balance. He was able to perform una walking on a mat without LOB. Physical Therapy Plan Frequency and Duration Frequency of Treatment 1-2x/wk Duration of treatment (weeks) 12 Plan of Care Start Date 11/08/22 Plan of Care End Date 01/31/23 Next Visit Focus/Plan Next Note Type Treatment Note Next Visit Plan Try STM treatment in sitting to minimize dizziness at end of treatment. Cont red clips balance, SLS activities adding more challenging uneven surface training, uneven surfaces w/walking, advance cervical stability as tolerated.
--- NOTE | 2022-12-15 07:43 | PT-OP ANOTE ---
Pt did not show for today's appt has been sick for the past 2 days from grandchildren, not feeling well forgot to call and cancel appt. PHYS ASST reminded of [facility] policy and reminded of next appt 12/21/22, verbalized confirmation.
--- NOTE | 2022-12-21 08:15 | PT.OTN ---
Current Diagnoses Cervicalgia (12/21/22) Other abnormalities of gait and mobility (12/21/22) Abnormal posture (12/21/22) Weakness (12/21/22) Arthrodesis status (12/21/22) Physical Therapy Treatment Note PT-OP-A Visit Information Start: 11/03/22 13:37 Freq: Status: Active Protocol: Document 12/21/22 07:34 SP (Rec: 12/21/22 08:16 SP [id number]) Out-Patient Physical Therapy Visit Information Visit Information Visit Type Treatment Note Visit Start Time 07:34 Visit Stop Time 08:15 Total Visit Minutes 41 Visit Number 8 Number of HOGSHEAD ROLLER Visits 1 PT-OP-B Current Condition Start: 11/03/22 13:37 Freq: Status: Active Protocol: Document 11/08/22 10:35 [facility] (Rec: 11/08/22 11:30 [facility] [id number]) Current Condition History of Current Condition Onset Date neck pain about 12 years ago; balance 3 years ago or more Current Complaints Neck pain/head pain and balance issues History of Current Condition Pt reportsbroke his neck in [place] is an attack but was pushed out of the hospital too quickly before Xrays and was off for 6 days. 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 He was working [employer] at the same time. Pt had C3-6 fusion about 11 years ago. about 7 months later, he lost some of the muscle in post shoulders. Pt reports head pain on R side of head and R arm has some problems sometimes. 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 he has been doing balance exercises from [employer]. Pt has issue w/clavicle pressing on trachea and some things cause coughing. 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 He has managed it okay so far.He can feel the pressure when rolling in bed. B RC issues. Pt has hx of L HS tear about 9 years ago Prior Treatments and Tests Carotid Doppler: IMPRESSION: No hemodynamically significant stenosis is seen. No significant change from the prior. Massage therapy: helps Brain MRI: IMPRESSION: BRAIN MRI: 1. No infarct or other acute intracranial abnormality. 2. Mild cerebral volume loss and mild chronic white matter small vessel ischemic changes. BRAIN MR ANGIOGRAM: 1. No high-grade stenosis or occlusion of the central intracranial arteries. NECK MR ANGIOGRAM: 1. No high-grade stenosis or occlusion of the head and neck arteries. The carotid bulbs appear widely patent. Cervical CT: Bones: No fractures or dislocations. There is mild, approximately 3 mm of C2-C3, 2 mm of C6-C7 and 2 mm of C7-T1 degenerative anterolisthesis. Visualized superior ribs are intact. Postsurgical changes compatible with C4-C6 ACDF are noted. The orthopedic hardware is intact. No lucencies are identified the bone hardware interface. Spine degenerative disc disease and facet arthropathy. No significant central canal narrowing. Severe bilateral C3-C4, C4-C5 and C6-C7 neural foraminal narrowing. Severe left C5-C6 neural foraminal narrowing. Mild osteophytic degenerative changes are noted in the sternoclavicular joints bilaterally. No definite sternoclavicular joint effusions identified. No osseous erosive changes at the sternoclavicular joints. There is widening of the right acromioclavicular joint which could be due to prior acromioplasty; please correlate with surgical history. Soft tissues: Prevertebral soft tissues are normal in thickness. No paravertebral hematomas. No apical pneumothoraces. No soft tissue inflammation or fluid collections noted adjacent to the sternoclavicular joints. Treatment Goals Patient/Caregiver Goals improve strength & balance PT-OP-C Subjective Start: 11/03/22 13:37 Freq: Status: Active Protocol: Document 12/21/22 07:34 SP (Rec: 12/21/22 08:16 SP [id number]) OP-PT Subjective Patient Comments Patient Comments Pt reports seeing an orthopedic Dr Joyce for his L knee later this afternoon due to pain having. Neck stiff/bothersome depending on how sleeps want massage this am and avoid balance board today . PT-OP-D Balance Start: 11/03/22 13:37 Freq: Status: Active Protocol: Document 11/08/22 10:35 LR (Rec: 11/08/22 11:30 LR [id number]) Balance Tests Single Limb Standing Single Limb- Right 9 sec Single Limb- Left 5 sec PT-OP-E Functional Tests Start: 11/03/22 13:37 Freq: Status: Active Protocol: Document 11/08/22 10:35 [facility] (Rec: 11/08/22 11:30 [facility] [id number]) Functional Tests Dynamic Gait Index (DGI) Score 22 Functional Gait Assessment Score PT-OP-F Manual Assessment Start: 11/03/22 13:37 Freq: Status: Active Protocol: Document 11/08/22 10:35 [facility] (Rec: 11/08/22 11:30 [facility] [id number]) Manual Assessments Soft Tissue Assessment Soft Tissue Mobility Assessment R>L cervical and cranial tightness PT-OP-G Mobility & Gait Start: 11/03/22 13:37 Freq: Status: Active Protocol: Document 11/08/22 10:35 [facility] (Rec: 11/08/22 11:30 [facility] [id number]) OP Gait Assessment Comments Gait Comments dec push off PT-OP-J Posture/Palpation/Skin Start: 11/03/22 13:37 Freq: Status: Active Protocol: Document 11/08/22 10:35 [facility] (Rec: 11/08/22 11:30 [facility] [id number]) Posture Evaluation Comments Posture Comments fwd head and neck & inc kyphosis PT-OP-K Range of Motion Start: 11/03/22 13:37 Freq: Status: Active Protocol: Document 11/08/22 10:35 [facility] (Rec: 11/08/22 11:30 [facility] [id number]) Cervical Spine Range of Motion Cervical Spine Active Degrees Flexion 55 Extension 21 Rotation Left 36 Rotation Right 37 Lateral Flexion Left 10 Lateral Flexion Right 10 ROM Limitations Pain PT-OP-L Special Tests Start: 11/03/22 13:37 Freq: Status: Active Protocol: Document 11/08/22 10:35 [facility] (Rec: 11/08/22 11:30 [facility] [id number]) Special Tests Cervical Spine Special Tests Spurling's Test Test Results neg Vertebral Artery Test Results neg Alar Ligament Test Results neg Neural Special Tests- Upper Body Median Nerve Tension Test Results positive B Ulnar Nerve Tension Test Results neg B Radial Nerve Tension Test Results neg B PT-OP-M Strength Start: 11/03/22 13:37 Freq: Status: Active Protocol: Document 11/08/22 10:35 [facility] (Rec: 11/08/22 11:30 [facility] [id number]) Shoulder Strength Shoulder Manual Muscle Testing Right Flexion 3+ Fair+ Extension 4 Good Abduction (C5) 3+ Fair+ External Rotation 3+ Fair+ Internal Rotation 4+ Good+ Left Flexion 3+ Fair+ Extension 4 Good Abduction (C5) 3+ Fair+ External Rotation 3 Fair Internal Rotation 4+ Good+ Hip Strength Hip Manual Muscle Testing Right Flexion (L2) 4- Good- Extension (S1) 3+ Fair+ Abduction 4- Good- External Rotation 3+ Fair+ Internal Rotation 5 Normal Left Flexion (L2) 4- Good- Extension (S1) 3+ Fair+ Abduction 4- Good- External Rotation 3+ Fair+ Internal Rotation 5 Normal Knee Strength Knee Manual Muscle Testing Right Flexion (S2) 5 Normal Extension (L3) 5 Normal Left Flexion (S2) 5 Normal Extension (L3) 5 Normal Ankle/Foot Strength Ankle and Foot Manual Muscle Testing Right Dorsiflexion (L4) 5 Normal Plantarflexion (S1) 5 Normal Inversion 4+ Good+ Eversion (S1) 5 Normal Left Dorsiflexion (L4) 5 Normal Plantarflexion (S1) 5 Normal Inversion 4+ Good+ Eversion (S1) 5 Normal Comments PF tested seated B PT-OP-Q Treatments Start: 11/03/22 13:37 Freq: Status: Active Protocol: Document 12/21/22 07:34 SP (Rec: 12/21/22 08:16 SP [id number]) Therapeutic Exercises Supine Exercises axial elonation Supine Exercise Name HEP reviewed Reps/Minutes 5 sec x8 core engagement Supine Exercise Name B flex isometric - hands/knees push Side bilateral Reps/Minutes 10 sec x 10 Sidelying Exercises open book Side bilateral Reps/Minutes 5 ea Sitting Exercises chin tucks Sitting Exercise Name w/ scap retraction Reps/Minutes 5 SH x5 stretches Sitting Exercise Name 1. HS 2. Fig 4 Side left Reps/Minutes 30 sec ea Comments Break btn stretch due to uniknee pain. Standing Exercises lateral band walk Standing Exercise Name initiated in PT Resistance TB #3 loop at mid fried Reps/Minutes 20 ft x2 laps Comments cued slow eccentric control Neuro Re-Education Treatment Balance Activities tandem stance Details Tandem Surface blue oval cushions Equipment near rail Reps/Duration 60SH each position hurdles Details fwd Surface Level and soft (black mat) Equipment hurdles, 4 oval cushions, 1 pod Reps/Duration 6 hurdles x6 Comments Min A, cues for PT-OP-R Modalities Start: 11/03/22 13:37 Freq: Status: Active Protocol: Document 11/22/22 10:33 LR (Rec: 11/22/22 11:18 [facility] [id number]) Hot Pack/Cold Pack Treatment Hot Pack Location cervical Patient Position Hooklying Treatment Duration (minutes) 15 PT-OP-T Assessment and Plan Start: 11/03/22 13:37 Freq: Status: Active Protocol: Document 12/21/22 07:34 SP (Rec: 12/21/22 08:16 SP [id number]) Physical Therapy Assessment Goals pain Correction Goal (LTG) Pt will report worst pain in neck for a week to be no greater than 4/10. LTG Duration 01.31.23 Strength Short Term Goal (STG) Pt will be indep w/HEP STG Duration 12/29/22 Restaurant Line Cook Goal (LTG) Pt will score at least 4+/5 on all LE strength to imrpove LE stability and improve balance LTG Duration 01/31 ROM Short Term Goal (STG) Pt will improve rotation B cervically to at least 45 deg. STG Duration 12/29/22 Restaurant Line Cook Goal (LTG) Pt will report min pain w/all ROM in cervical region. LTG Duration 01/31/23 SLS Correction Goal (LTG) Pt will be able to do SLS for 15 sec B. LTG Duration 01/31/23 Assessment Summary Assessment Pt requires cues for HEP CS alignment and core isometrics. Pt better understanding with cues for posturing and core fac with for improved stability and gait over uneven surfaces. Pt would benefit from continued PT with challenge balance recovery and WB as tolerated. Physical Therapy Plan Frequency and Duration Frequency of Treatment 1-2x/wk Duration of treatment (weeks) 12 Plan of Care Start Date 11/08/22 Plan of Care End Date 01/31/23 Therapeutic Interventions Therapeutic Interventions Aquatic Therapy,Balance Training,Gait Training,Home Exercise Program,Joint Mobilizations,Manual Therapy, Neuromuscular Re-education, Orthotic/Prosthetic Management ,Patient/Caregiver Education, Self-Care/Home Management,Soft Tissue Mobilization,Taping, Therapeutic Activities, Therapeutic Exercises, Vestibular Rehabilitation Modalities Cold Pack/Ice Massage,Electric Stimulation,Hot Packs, Infrared Therapy,Ultrasound Next Visit Focus/Plan Next Note Type Treatment Note Next Visit Plan Ask finding L knee ortho appt. Try STM treatment in sitting to minimize dizziness at end of treatment. Cont red clips balance, SLS activities adding more challenging uneven surface training, uneven surfaces w/walking, advance cervical stability as tolerated.
--- NOTE | 2022-12-28 12:18 | PT.OTN ---
Current Diagnoses Cervicalgia (12/28/22) Other abnormalities of gait and mobility (12/28/22) Abnormal posture (12/28/22) Weakness (12/28/22) Arthrodesis status (12/28/22) Physical Therapy Treatment Note PT-OP-A Visit Information Start: 11/03/22 13:37 Freq: Status: Active Protocol: Document 12/28/22 11:24 NB (Rec: 12/28/22 12:18 NB [id number]) Out-Patient Physical Therapy Visit Information Visit Information Visit Type Treatment Note Visit Start Time 11:24 Visit Stop Time 12:04 Total Visit Minutes 40 Visit Number 9 Number of LOGISTICS PROGRAM MANAGER Visits 2 PT-OP-B Current Condition Start: 11/03/22 13:37 Freq: Status: Active Protocol: Document 11/08/22 10:35 [facility] (Rec: 11/08/22 11:30 [facility] [id number]) Current Condition History of Current Condition Onset Date neck pain about 12 years ago; balance 3 years ago or more Current Complaints Neck pain/head pain and balance issues History of Current Condition Pt reportsbroke his neck in [place] is an attack but was pushed out of the hospital too quickly before Xrays and was off for 6 days. 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 He was working [employer] at the same time. Pt had C3-6 fusion about 11 years ago. about 7 months later, he lost some of the muscle in post shoulders. Pt reports head pain on R side of head and R arm has some problems sometimes. 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 he has been doing balance exercises from [employer]. Pt has issue w/clavicle pressing on trachea and some things cause coughing. 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 He has managed it okay so far.He can feel the pressure when rolling in bed. B RC issues. Pt has hx of L HS tear about 9 years ago Prior Treatments and Tests Carotid Doppler: IMPRESSION: No hemodynamically significant stenosis is seen. No significant change from the prior. Massage therapy: helps Brain MRI: IMPRESSION: BRAIN MRI: 1. No infarct or other acute intracranial abnormality. 2. Mild cerebral volume loss and mild chronic white matter small vessel ischemic changes. BRAIN MR ANGIOGRAM: 1. No high-grade stenosis or occlusion of the central intracranial arteries. NECK MR ANGIOGRAM: 1. No high-grade stenosis or occlusion of the head and neck arteries. The carotid bulbs appear widely patent. Cervical CT: Bones: No fractures or dislocations. There is mild, approximately 3 mm of C2-C3, 2 mm of C6-C7 and 2 mm of C7-T1 degenerative anterolisthesis. Visualized superior ribs are intact. Postsurgical changes compatible with C4-C6 ACDF are noted. The orthopedic hardware is intact. No lucencies are identified the bone hardware interface. Spine degenerative disc disease and facet arthropathy. No significant central canal narrowing. Severe bilateral C3-C4, C4-C5 and C6-C7 neural foraminal narrowing. Severe left C5-C6 neural foraminal narrowing. Mild osteophytic degenerative changes are noted in the sternoclavicular joints bilaterally. No definite sternoclavicular joint effusions identified. No osseous erosive changes at the sternoclavicular joints. There is widening of the right acromioclavicular joint which could be due to prior acromioplasty; please correlate with surgical history. Soft tissues: Prevertebral soft tissues are normal in thickness. No paravertebral hematomas. No apical pneumothoraces. No soft tissue inflammation or fluid collections noted adjacent to the sternoclavicular joints. Treatment Goals Patient/Caregiver Goals improve strength & balance PT-OP-C Subjective Start: 11/03/22 13:37 Freq: Status: Active Protocol: Document 12/28/22 11:24 [facility] (Rec: 12/28/22 12:18 [facility] [id number]) OP-PT Subjective Patient Comments Patient Comments Pt reports ortho advised him he has loose screws in the L knee, and recommends knee replacement. He plans to get a second opinion, but his knee is currently feeling numb, which comes and goes with gentle exercise or walking. PT-OP-D Balance Start: 11/03/22 13:37 Freq: Status: Active Protocol: Document 11/08/22 10:35 [facility] (Rec: 11/08/22 11:30 [facility] [id number]) Balance Tests Single Limb Standing Single Limb- Right 9 sec Single Limb- Left 5 sec PT-OP-E Functional Tests Start: 11/03/22 13:37 Freq: Status: Active Protocol: Document 11/08/22 10:35 [facility] (Rec: 11/08/22 11:30 [facility] [id number]) Functional Tests Dynamic Gait Index (DGI) Score 22 Functional Gait Assessment Score PT-OP-F Manual Assessment Start: 11/03/22 13:37 Freq: Status: Active Protocol: Document 11/08/22 10:35 [facility] (Rec: 11/08/22 11:30 [facility] [id number]) Manual Assessments Soft Tissue Assessment Soft Tissue Mobility Assessment R>L cervical and cranial tightness PT-OP-G Mobility & Gait Start: 11/03/22 13:37 Freq: Status: Active Protocol: Document 11/08/22 10:35 [facility] (Rec: 11/08/22 11:30 [facility] [id number]) OP Gait Assessment Comments Gait Comments dec push off PT-OP-J Posture/Palpation/Skin Start: 11/03/22 13:37 Freq: Status: Active Protocol: Document 11/08/22 10:35 [facility] (Rec: 11/08/22 11:30 [facility] [id number]) Posture Evaluation Comments Posture Comments fwd head and neck & inc kyphosis PT-OP-K Range of Motion Start: 11/03/22 13:37 Freq: Status: Active Protocol: Document 11/08/22 10:35 [facility] (Rec: 11/08/22 11:30 [facility] [id number]) Cervical Spine Range of Motion Cervical Spine Active Degrees Flexion 55 Extension 21 Rotation Left 36 Rotation Right 37 Lateral Flexion Left 10 Lateral Flexion Right 10 ROM Limitations Pain PT-OP-L Special Tests Start: 11/03/22 13:37 Freq: Status: Active Protocol: Document 11/08/22 10:35 [facility] (Rec: 11/08/22 11:30 [facility] [id number]) Special Tests Cervical Spine Special Tests Spurling's Test Test Results neg Vertebral Artery Test Results neg Alar Ligament Test Results neg Neural Special Tests- Upper Body Median Nerve Tension Test Results positive B Ulnar Nerve Tension Test Results neg B Radial Nerve Tension Test Results neg B PT-OP-M Strength Start: 11/03/22 13:37 Freq: Status: Active Protocol: Document 11/08/22 10:35 [facility] (Rec: 11/08/22 11:30 [facility] [id number]) Shoulder Strength Shoulder Manual Muscle Testing Right Flexion 3+ Fair+ Extension 4 Good Abduction (C5) 3+ Fair+ External Rotation 3+ Fair+ Internal Rotation 4+ Good+ Left Flexion 3+ Fair+ Extension 4 Good Abduction (C5) 3+ Fair+ External Rotation 3 Fair Internal Rotation 4+ Good+ Hip Strength Hip Manual Muscle Testing Right Flexion (L2) 4- Good- Extension (S1) 3+ Fair+ Abduction 4- Good- External Rotation 3+ Fair+ Internal Rotation 5 Normal Left Flexion (L2) 4- Good- Extension (S1) 3+ Fair+ Abduction 4- Good- External Rotation 3+ Fair+ Internal Rotation 5 Normal Knee Strength Knee Manual Muscle Testing Right Flexion (S2) 5 Normal Extension (L3) 5 Normal Left Flexion (S2) 5 Normal Extension (L3) 5 Normal Ankle/Foot Strength Ankle and Foot Manual Muscle Testing Right Dorsiflexion (L4) 5 Normal Plantarflexion (S1) 5 Normal Inversion 4+ Good+ Eversion (S1) 5 Normal Left Dorsiflexion (L4) 5 Normal Plantarflexion (S1) 5 Normal Inversion 4+ Good+ Eversion (S1) 5 Normal Comments PF tested seated B PT-OP-Q Treatments Start: 11/03/22 13:37 Freq: Status: Active Protocol: Document 12/28/22 11:24 [facility] (Rec: 12/28/22 12:18 [facility] [id number]) Therapeutic Exercises Supine Exercises PPT Reps/Minutes 10x5SH Comments inital tactile cues core engagement Supine Exercise Name B flex isometric - hands/knees push Side bilateral Reps/Minutes 10 sec x 10 Comments pt cued for TrA activation, improves low back pain but dc' d d/t c/o neck pn Sidelying Exercises open book Side bilateral Reps/Minutes 15 ea Manual Therapy Treatment Soft Tissue Mobilization SOR Mobilization Type Sustained Pressure UT/LS Body Location R Mobilization Type Rolling Intensity/Depth Moderate paraspinals Body Location L Mobilization Type Rolling,Strumming Intensity/Depth Moderate Body Position Supine PT-OP-R Modalities Start: 11/03/22 13:37 Freq: Status: Active Protocol: Document 11/22/22 10:33 [facility] (Rec: 11/22/22 11:18 [facility] [id number]) Hot Pack/Cold Pack Treatment Hot Pack Location cervical Patient Position Hooklying Treatment Duration (minutes) 15 PT-OP-T Assessment and Plan Start: 11/03/22 13:37 Freq: Status: Active Protocol: Document 12/28/22 11:24 [facility] (Rec: 12/28/22 12:18 [facility] [id number]) Physical Therapy Assessment Impairments Impairments Activity Tolerance,Balance, Functional Activities, Functional Mobility,Gait,Pain, Posture,ROM,Soft Tissue Mobility,Strength Goals pain Chcf Goal (LTG) Pt will report worst pain in neck for a week to be no greater than 4/10. LTG Duration 01.31.23 Strength Short Term Goal (STG) Pt will be indep w/HEP STG Duration 12/29/22 [facility] Goal (LTG) Pt will score at least 4+/5 on all LE strength to imrpove LE stability and improve balance LTG Duration 01/31 ROM Short Term Goal (STG) Pt will improve rotation B cervically to at least 45 deg. STG Duration 12/29/22 Category Development Analyst Goal (LTG) Pt will report min pain w/all ROM in cervical region. LTG Duration 01/31/23 SLS Category Development Analyst Goal (LTG) Pt will be able to do SLS for 15 sec B. LTG Duration 01/31/23 Assessment Summary Assessment Treatment focus on core and cervicalgia per pt's report that L knee has loose screws and may need knee replacement. Pt has palbable tightness to [place]/LS which improves w/ manual. Good feedback response to manual cervical traction and suboccipital release. Physical Therapy Plan Frequency and Duration Frequency of Treatment 1-2x/wk Duration of treatment (weeks) 12 Plan of Care Start Date 11/08/22 Plan of Care End Date 01/31/23 Therapeutic Interventions Therapeutic Interventions Aquatic Therapy,Balance Training,Gait Training,Home Exercise Program,Joint Mobilizations,Manual Therapy, Neuromuscular Re-education, Orthotic/Prosthetic Management ,Patient/Caregiver Education, Self-Care/Home Management,Soft Tissue Mobilization,Taping, Therapeutic Activities, Therapeutic Exercises, Vestibular Rehabilitation Modalities Cold Pack/Ice Massage,Electric Stimulation,Hot Packs, Infrared Therapy,Ultrasound Next Visit Focus/Plan Next Note Type Treatment Note Next Visit Plan Ask finding L knee ortho appt. Try STM treatment in sitting to minimize dizziness at end of treatment. Cont red clips balance, SLS activities adding more challenging uneven surface training, uneven surfaces w/walking, advance cervical stability as tolerated.
--- NOTE | 2022-12-31 08:15 | PT.OTN ---
Current Diagnoses Cervicalgia (12/31/22) Other abnormalities of gait and mobility (12/31/22) Abnormal posture (12/31/22) Weakness (12/31/22) Arthrodesis status (12/31/22) Physical Therapy Treatment Note PT-OP-A Visit Information Start: 11/03/22 13:37 Freq: Status: Active Protocol: Document 12/31/22 07:34 SP (Rec: 12/31/22 08:18 SP [id number]) Out-Patient Physical Therapy Visit Information Visit Information Visit Type Treatment Note Visit Start Time 07:34 Visit Stop Time 08:15 Total Visit Minutes 41 Visit Number 10 Number of LASTER HAND Visits 3 PT-OP-B Current Condition Start: 11/03/22 13:37 Freq: Status: Active Protocol: Document 11/08/22 10:35 [facility] (Rec: 11/08/22 11:30 [facility] [id number]) Current Condition History of Current Condition Onset Date neck pain about 12 years ago; balance 3 years ago or more Current Complaints Neck pain/head pain and balance issues History of Current Condition Pt reportsbroke his neck in [place] is an attack but was pushed out of the hospital too quickly before Xrays and was off for 6 days. 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 He was working [employer] at the same time. Pt had C3-6 fusion about 11 years ago. about 7 months later, he lost some of the muscle in post shoulders. Pt reports head pain on R side of head and R arm has some problems sometimes. 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 he has been doing balance exercises from [employer]. Pt has issue w/clavicle pressing on trachea and some things cause coughing. 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 He has managed it okay so far.He can feel the pressure when rolling in bed. B RC issues. Pt has hx of L HS tear about 9 years ago Prior Treatments and Tests Carotid Doppler: IMPRESSION: No hemodynamically significant stenosis is seen. No significant change from the prior. Massage therapy: helps Brain MRI: IMPRESSION: BRAIN MRI: 1. No infarct or other acute intracranial abnormality. 2. Mild cerebral volume loss and mild chronic white matter small vessel ischemic changes. BRAIN MR ANGIOGRAM: 1. No high-grade stenosis or occlusion of the central intracranial arteries. NECK MR ANGIOGRAM: 1. No high-grade stenosis or occlusion of the head and neck arteries. The carotid bulbs appear widely patent. Cervical CT: Bones: No fractures or dislocations. There is mild, approximately 3 mm of C2-C3, 2 mm of C6-C7 and 2 mm of C7-T1 degenerative anterolisthesis. Visualized superior ribs are intact. Postsurgical changes compatible with C4-C6 ACDF are noted. The orthopedic hardware is intact. No lucencies are identified the bone hardware interface. Spine degenerative disc disease and facet arthropathy. No significant central canal narrowing. Severe bilateral C3-C4, C4-C5 and C6-C7 neural foraminal narrowing. Severe left C5-C6 neural foraminal narrowing. Mild osteophytic degenerative changes are noted in the sternoclavicular joints bilaterally. No definite sternoclavicular joint effusions identified. No osseous erosive changes at the sternoclavicular joints. There is widening of the right acromioclavicular joint which could be due to prior acromioplasty; please correlate with surgical history. Soft tissues: Prevertebral soft tissues are normal in thickness. No paravertebral hematomas. No apical pneumothoraces. No soft tissue inflammation or fluid collections noted adjacent to the sternoclavicular joints. Treatment Goals Patient/Caregiver Goals improve strength & balance PT-OP-C Subjective Start: 11/03/22 13:37 Freq: Status: Active Protocol: Document 12/31/22 07:34 SP (Rec: 12/31/22 08:18 SP [id number]) OP-PT Subjective Patient Comments Patient Comments Pt reports saw ortho and told to discontinue working with L knee due to crunching and increased irritation. Looking into L knee replacement, unsure when. Pt wants to focus on neck. PT-OP-D Balance Start: 11/03/22 13:37 Freq: Status: Active Protocol: Document 11/08/22 10:35 [facility] (Rec: 11/08/22 11:30 [facility] [id number]) Balance Tests Single Limb Standing Single Limb- Right 9 sec Single Limb- Left 5 sec PT-OP-E Functional Tests Start: 11/03/22 13:37 Freq: Status: Active Protocol: Document 11/08/22 10:35 [facility] (Rec: 11/08/22 11:30 [facility] [id number]) Functional Tests Dynamic Gait Index (DGI) Score 22 Functional Gait Assessment Score PT-OP-F Manual Assessment Start: 11/03/22 13:37 Freq: Status: Active Protocol: Document 11/08/22 10:35 [facility] (Rec: 11/08/22 11:30 [facility] [id number]) Manual Assessments Soft Tissue Assessment Soft Tissue Mobility Assessment R>L cervical and cranial tightness PT-OP-G Mobility & Gait Start: 11/03/22 13:37 Freq: Status: Active Protocol: Document 11/08/22 10:35 [facility] (Rec: 11/08/22 11:30 [facility] [id number]) OP Gait Assessment Comments Gait Comments dec push off PT-OP-J Posture/Palpation/Skin Start: 11/03/22 13:37 Freq: Status: Active Protocol: Document 11/08/22 10:35 [facility] (Rec: 11/08/22 11:30 [facility] [id number]) Posture Evaluation Comments Posture Comments fwd head and neck & inc kyphosis PT-OP-K Range of Motion Start: 11/03/22 13:37 Freq: Status: Active Protocol: Document 11/08/22 10:35 [facility] (Rec: 11/08/22 11:30 [facility] [id number]) Cervical Spine Range of Motion Cervical Spine Active Degrees Flexion 55 Extension 21 Rotation Left 36 Rotation Right 37 Lateral Flexion Left 10 Lateral Flexion Right 10 ROM Limitations Pain PT-OP-L Special Tests Start: 11/03/22 13:37 Freq: Status: Active Protocol: Document 11/08/22 10:35 [facility] (Rec: 11/08/22 11:30 [facility] [id number]) Special Tests Cervical Spine Special Tests Spurling's Test Test Results neg Vertebral Artery Test Results neg Alar Ligament Test Results neg Neural Special Tests- Upper Body Median Nerve Tension Test Results positive B Ulnar Nerve Tension Test Results neg B Radial Nerve Tension Test Results neg B PT-OP-M Strength Start: 11/03/22 13:37 Freq: Status: Active Protocol: Document 11/08/22 10:35 [facility] (Rec: 11/08/22 11:30 [facility] [id number]) Shoulder Strength Shoulder Manual Muscle Testing Right Flexion 3+ Fair+ Extension 4 Good Abduction (C5) 3+ Fair+ External Rotation 3+ Fair+ Internal Rotation 4+ Good+ Left Flexion 3+ Fair+ Extension 4 Good Abduction (C5) 3+ Fair+ External Rotation 3 Fair Internal Rotation 4+ Good+ Hip Strength Hip Manual Muscle Testing Right Flexion (L2) 4- Good- Extension (S1) 3+ Fair+ Abduction 4- Good- External Rotation 3+ Fair+ Internal Rotation 5 Normal Left Flexion (L2) 4- Good- Extension (S1) 3+ Fair+ Abduction 4- Good- External Rotation 3+ Fair+ Internal Rotation 5 Normal Knee Strength Knee Manual Muscle Testing Right Flexion (S2) 5 Normal Extension (L3) 5 Normal Left Flexion (S2) 5 Normal Extension (L3) 5 Normal Ankle/Foot Strength Ankle and Foot Manual Muscle Testing Right Dorsiflexion (L4) 5 Normal Plantarflexion (S1) 5 Normal Inversion 4+ Good+ Eversion (S1) 5 Normal Left Dorsiflexion (L4) 5 Normal Plantarflexion (S1) 5 Normal Inversion 4+ Good+ Eversion (S1) 5 Normal Comments PF tested seated B PT-OP-Q Treatments Start: 11/03/22 13:37 Freq: Status: Active Protocol: Document 12/31/22 07:34 SP (Rec: 12/31/22 08:18 SP [id number]) Therapeutic Exercises Supine Exercises posture press Supine Exercise Name initiated in PT Side bilateral Reps/Minutes 5SH x10 Comments CS nod neutral, long arm press into table axial elonation Supine Exercise Name HEP reviewed Reps/Minutes 5 sec x8 Sidelying Exercises open book Side bilateral Reps/Minutes 15 ea Comments cued head turn with arm-good fdbk ROM/stretch Standing Exercises wall posture Standing Exercise Name added to HEP- arms at side ER Equipment Used back to wall Reps/Minutes 10SH x5 Comments cued TA, CS chin nod neutral ext- good form stretch Standing Exercise Name CS SB (UT), Rotation Resistance AROM Reps/Minutes 5SH x3 reps B Comments limited SB, increased good stretch response rows Standing Exercise Name B row & B ext Side bilateral Equipment Used L2 Reps/Minutes 15 ea Comments cued CS neutral Manual Therapy Treatment Soft Tissue Mobilization SOR Mobilization Type Sustained Pressure Comments good feedback releases UT/LS Body Location R>L Mobilization Type Myofascial Release,Strumming Intensity/Depth Moderate Body Position Hooklying SCM/scalenes Body Location B Mobilization Type Myofascial Release,Rolling Intensity/Depth Moderate Body Position Supine Comments manual and reviewed self at home- states compliant paraspinals Body Location L CS Mobilization Type Rolling,Strumming Intensity/Depth Moderate Body Position Supine Manual Traction CS Details gentle superior distraction Body Position Hooklying Comments good feedback response PT-OP-R Modalities Start: 11/03/22 13:37 Freq: Status: Active Protocol: Document 11/22/22 10:33 LR (Rec: 11/22/22 11:18 LR [id number]) Hot Pack/Cold Pack Treatment Hot Pack Location cervical Patient Position Hooklying Treatment Duration (minutes) 15 PT-OP-T Assessment and Plan Start: 11/03/22 13:37 Freq: Status: Active Protocol: Document 12/31/22 07:34 SP (Rec: 12/31/22 08:18 SP [id number]) Physical Therapy Assessment Goals pain Mcc Goal (LTG) Pt will report worst pain in neck for a week to be no greater than 4/10. 12/31/22: GOAL MET: occasionally gets a shocking pain when turns head lately 2-3/10. Pt report stopping doing things that irritate it: bending over and looking down to much. Has started holding book up in front read and neck posture with activiteis in front him. LTG Duration 01.31.23 GOAL MET 12/31/22 Strength Short Term Goal (STG) Pt will be indep w/HEP 12/31/22: added open book, wall posture to HEP. STG Duration 12/29/22 Documentation Billing Clerk Goal (LTG) Pt will score at least 4+/5 on all LE strength to imrpove LE stability and improve balance LTG Duration 01/31 ROM Short Term Goal (STG) Pt will improve rotation B cervically to at least 45 deg. STG Duration 12/29/22 Mcc Goal (LTG) Pt will report min pain w/all ROM in cervical region. LTG Duration 01/31/23 SLS Mcc Goal (LTG) Pt will be able to do SLS for 15 sec B. LTG Duration 01/31/23 Assessment Summary Assessment Pt good feedback response to manual and review cervical AROM and stretching. Cues as needed for proper from open book toallow scapuar ROM and TS rotation mobility. Pt good response to added supine posture press and carryover wall posture to allow improved standing posture awareness post performance. Encouraged pt continue stretching and posture HEP in between forward activities as computer, and outdoor activities. Good feedback back/neck more ROM end tx. Physical Therapy Plan Frequency and Duration Frequency of Treatment 1-2x/wk Duration of treatment (weeks) 12 Plan of Care Start Date 11/08/22 Plan of Care End Date 01/31/23 Therapeutic Interventions Therapeutic Interventions Aquatic Therapy,Balance Training,Gait Training,Home Exercise Program,Joint Mobilizations,Manual Therapy, Neuromuscular Re-education, Orthotic/Prosthetic Management ,Patient/Caregiver Education, Self-Care/Home Management,Soft Tissue Mobilization,Taping, Therapeutic Activities, Therapeutic Exercises, Vestibular Rehabilitation Modalities Cold Pack/Ice Massage,Electric Stimulation,Hot Packs, Infrared Therapy,Ultrasound Next Visit Focus/Plan Next Note Type Treatment Note Next Visit Plan Review HEP. Add pec stretch next tx. POC: Try STM treatment in sitting to minimize dizziness at end of treatment. Cont red clips balance, SLS activities adding more challenging uneven surface training, uneven surfaces w/walking, advance cervical stability as tolerated.
--- NOTE | 2023-01-04 12:07 | PT.OTN ---
Current Diagnoses Cervicalgia (01/04/23) Other abnormalities of gait and mobility (01/04/23) Abnormal posture (01/04/23) Weakness (01/04/23) Arthrodesis status (01/04/23) Physical Therapy Treatment Note PT-OP-A Visit Information Start: 11/03/22 13:37 Freq: Status: Active Protocol: Document 01/04/23 11:23 [facility] (Rec: 01/04/23 12:06 [facility] [id number]) Out-Patient Physical Therapy Visit Information Visit Information Visit Type Progress Note Visit Note 11/09 Visit Start Time 11:21 Visit Stop Time 12:15 Total Visit Minutes 54 Visit Number 11 Number of ENTERTAINMENT MANAGER Visits 0 PT-OP-B Current Condition Start: 11/03/22 13:37 Freq: Status: Active Protocol: Document 11/08/22 10:35 [facility] (Rec: 11/08/22 11:30 [facility] [id number]) Current Condition History of Current Condition Onset Date neck pain about 12 years ago; balance 3 years ago or more Current Complaints Neck pain/head pain and balance issues History of Current Condition Pt reportsbroke his neck in [place] is an attack but was pushed out of the hospital too quickly before Xrays and was off for 6 days. 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 He was working [employer] at the same time. Pt had C3-6 fusion about 11 years ago. about 7 months later, he lost some of the muscle in post shoulders. Pt reports head pain on R side of head and R arm has some problems sometimes. 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 he has been doing balance exercises from [employer]. Pt has issue w/clavicle pressing on trachea and some things cause coughing. 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 He has managed it okay so far.He can feel the pressure when rolling in bed. B RC issues. Pt has hx of L HS tear about 9 years ago Prior Treatments and Tests Carotid Doppler: IMPRESSION: No hemodynamically significant stenosis is seen. No significant change from the prior. Massage therapy: helps Brain MRI: IMPRESSION: BRAIN MRI: 1. No infarct or other acute intracranial abnormality. 2. Mild cerebral volume loss and mild chronic white matter small vessel ischemic changes. BRAIN MR ANGIOGRAM: 1. No high-grade stenosis or occlusion of the central intracranial arteries. NECK MR ANGIOGRAM: 1. No high-grade stenosis or occlusion of the head and neck arteries. The carotid bulbs appear widely patent. Cervical CT: Bones: No fractures or dislocations. There is mild, approximately 3 mm of C2-C3, 2 mm of C6-C7 and 2 mm of C7-T1 degenerative anterolisthesis. Visualized superior ribs are intact. Postsurgical changes compatible with C4-C6 ACDF are noted. The orthopedic hardware is intact. No lucencies are identified the bone hardware interface. Spine degenerative disc disease and facet arthropathy. No significant central canal narrowing. Severe bilateral C3-C4, C4-C5 and C6-C7 neural foraminal narrowing. Severe left C5-C6 neural foraminal narrowing. Mild osteophytic degenerative changes are noted in the sternoclavicular joints bilaterally. No definite sternoclavicular joint effusions identified. No osseous erosive changes at the sternoclavicular joints. There is widening of the right acromioclavicular joint which could be due to prior acromioplasty; please correlate with surgical history. Soft tissues: Prevertebral soft tissues are normal in thickness. No paravertebral hematomas. No apical pneumothoraces. No soft tissue inflammation or fluid collections noted adjacent to the sternoclavicular joints. Treatment Goals Patient/Caregiver Goals improve strength & balance PT-OP-C Subjective Start: 11/03/22 13:37 Freq: Status: Active Protocol: Document 01/04/23 11:23 [facility] (Rec: 01/04/23 12:06 [facility] [id number]) OP-PT Subjective Patient Comments Patient Comments Pt reports his neck is up and down but he is careful to move properly PT-OP-D Balance Start: 11/03/22 13:37 Freq: Status: Active Protocol: Document 11/08/22 10:35 [facility] (Rec: 11/08/22 11:30 [facility] [id number]) Balance Tests Single Limb Standing Single Limb- Right 9 sec Single Limb- Left 5 sec PT-OP-E Functional Tests Start: 11/03/22 13:37 Freq: Status: Active Protocol: Document 11/08/22 10:35 [facility] (Rec: 11/08/22 11:30 [facility] [id number]) Functional Tests Dynamic Gait Index (DGI) Score 22 Functional Gait Assessment Score 2430 PT-OP-F Manual Assessment Start: 11/03/22 13:37 Freq: Status: Active Protocol: Document 11/08/22 10:35 [facility] (Rec: 11/08/22 11:30 [facility] [id number]) Manual Assessments Soft Tissue Assessment Soft Tissue Mobility Assessment R>L cervical and cranial tightness PT-OP-G Mobility & Gait Start: 11/03/22 13:37 Freq: Status: Active Protocol: Document 11/08/22 10:35 [facility] (Rec: 11/08/22 11:30 [facility] [id number]) OP Gait Assessment Comments Gait Comments dec push off PT-OP-J Posture/Palpation/Skin Start: 11/03/22 13:37 Freq: Status: Active Protocol: Document 11/08/22 10:35 [facility] (Rec: 11/08/22 11:30 [facility] [id number]) Posture Evaluation Comments Posture Comments fwd head and neck & inc kyphosis PT-OP-K Range of Motion Start: 11/03/22 13:37 Freq: Status: Active Protocol: Document 01/04/23 11:23 [facility] (Rec: 01/04/23 12:06 [facility] [id number]) Cervical Spine Range of Motion Cervical Spine Active Degrees Flexion 57 Extension 32 Rotation Left 56 Rotation Right 60 Lateral Flexion Left 14 Lateral Flexion Right 21 ROM Limitations Pain Comments some pain PT-OP-L Special Tests Start: 11/03/22 13:37 Freq: Status: Active Protocol: Document 11/08/22 10:35 [facility] (Rec: 11/08/22 11:30 [facility] [id number]) Special Tests Cervical Spine Special Tests Spurling's Test Test Results neg Vertebral Artery Test Results neg Alar Ligament Test Results neg Neural Special Tests- Upper Body Median Nerve Tension Test Results positive B Ulnar Nerve Tension Test Results neg B Radial Nerve Tension Test Results neg B PT-OP-M Strength Start: 11/03/22 13:37 Freq: Status: Active Protocol: Document 11/08/22 10:35 [facility] (Rec: 11/08/22 11:30 [facility] [id number]) Shoulder Strength Shoulder Manual Muscle Testing Right Flexion 3+ Fair+ Extension 4 Good Abduction (C5) 3+ Fair+ External Rotation 3+ Fair+ Internal Rotation 4+ Good+ Left Flexion 3+ Fair+ Extension 4 Good Abduction (C5) 3+ Fair+ External Rotation 3 Fair Internal Rotation 4+ Good+ Hip Strength Hip Manual Muscle Testing Right Flexion (L2) 4- Good- Extension (S1) 3+ Fair+ Abduction 4- Good- External Rotation 3+ Fair+ Internal Rotation 5 Normal Left Flexion (L2) 4- Good- Extension (S1) 3+ Fair+ Abduction 4- Good- External Rotation 3+ Fair+ Internal Rotation 5 Normal Knee Strength Knee Manual Muscle Testing Right Flexion (S2) 5 Normal Extension (L3) 5 Normal Left Flexion (S2) 5 Normal Extension (L3) 5 Normal Ankle/Foot Strength Ankle and Foot Manual Muscle Testing Right Dorsiflexion (L4) 5 Normal Plantarflexion (S1) 5 Normal Inversion 4+ Good+ Eversion (S1) 5 Normal Left Dorsiflexion (L4) 5 Normal Plantarflexion (S1) 5 Normal Inversion 4+ Good+ Eversion (S1) 5 Normal Comments PF tested seated B PT-OP-Q Treatments Start: 11/03/22 13:37 Freq: Status: Active Protocol: Document 01/04/23 11:23 [facility] (Rec: 01/04/23 12:06 [facility] [id number]) Therapeutic Exercises Sidelying Exercises open book Side bilateral Reps/Minutes 10 ea Comments cued head turn with arm- requierd cues for set up Standing Exercises wall posture Standing Exercise Name added to HEP- arms at side ER Equipment Used back to wall Reps/Minutes 10SH x5 Comments cued TA, CS chin nod neutral ext- cues all of back on wall stretch Standing Exercise Name doorway straight arm pec stretch Side bilateral Reps/Minutes 30 sec Manual Therapy Treatment Soft Tissue Mobilization SOR Mobilization Type Sustained Pressure UT/LS Body Location R>L Mobilization Type Myofascial Release,Strumming Intensity/Depth Moderate Body Position Hooklying SCM/scalenes Body Location B Mobilization Type Myofascial Release,Rolling Intensity/Depth Moderate Body Position Supine paraspinals Body Location L CS Mobilization Type Rolling,Strumming Intensity/Depth Moderate Body Position Supine Joint Mobilizations thoracic Comments transverse R T1 &2 FM Manual Traction CS Details gentle superior distraction Body Position Hooklying Comments good feedback response PT-OP-R Modalities Start: 11/03/22 13:37 Freq: Status: Active Protocol: Document 01/04/23 11:23 [facility] (Rec: 01/04/23 12:06 [facility] [id number]) Hot Pack/Cold Pack Treatment Hot Pack Location cervical Patient Position Hooklying Treatment Duration (minutes) 15 PT-OP-T Assessment and Plan Start: 11/03/22 13:37 Freq: Status: Active Protocol: Document 01/04/23 11:23 [facility] (Rec: 01/04/23 12:06 [facility] [id number]) Physical Therapy Assessment Goals pain [facility] Goal (LTG) Pt will report worst pain in neck for a week to be no greater than 4/10. 12/31/22: GOAL MET: occasionally gets a shocking pain when turns head lately 2-3. Pt report stopping doing things that irritate it: bending over and looking down to much. Has started holding book up in front read and neck posture with activiteis in front him. LTG Duration 01.31.23 GOAL MET 12/31/22 Strength Short Term Goal (STG) Pt will be indep w/HEP 12/31/22: added open book, wall posture to HEP. STG Duration 12/29/22 Product Applications Engineer Goal (LTG) Pt will score at least 4+/5 on all LE strength to imrpove LE stability and improve balance LTG Duration discontinue d/t ortho MD wanting to discontinue LE strength til surgery ROM Short Term Goal (STG) Pt will improve rotation B cervically to at least 45 deg. STG Duration achieved 01/04 [facility] Goal (LTG) Pt will report min pain w/all ROM in cervical region. LTG Duration 01/31/23 SLS [facility] Goal (LTG) Pt will be able to do SLS for 15 sec B. LTG Duration discontinue goals d/t L knee pain and ortho MD told him to hold on LE ex Assessment Summary Assessment Pt still required cues during exercises for set up but is improving overall w/exercises. he is showing good improvement with ROM at this time, but his L knee ortho MD has asked to stop wokring on L knee as pt needs surgery. Physical Therapy Plan Frequency and Duration Frequency of Treatment 1-2x/wk Duration of treatment (weeks) 12 Plan of Care Start Date 11/08/22 Plan of Care End Date 01/31/23 Therapeutic Interventions Therapeutic Interventions Aquatic Therapy,Balance Training,Gait Training,Home Exercise Program,Joint Mobilizations,Manual Therapy, Neuromuscular Re-education, Orthotic/Prosthetic Management ,Patient/Caregiver Education, Self-Care/Home Management,Soft Tissue Mobilization,Taping, Therapeutic Activities, Therapeutic Exercises, Vestibular Rehabilitation Modalities Cold Pack/Ice Massage,Electric Stimulation,Hot Packs, Infrared Therapy,Ultrasound Next Visit Focus/Plan Next Note Type Treatment Note Next Visit Plan review pec stretch next tx. Work on manual to improve ROM and cont to work on exercises for neck stability
--- NOTE | 2023-01-06 08:15 | PT.OTN ---
Current Diagnoses Cervicalgia (01/06/23) Other abnormalities of gait and mobility (01/06/23) Abnormal posture (01/06/23) Weakness (01/06/23) Arthrodesis status (01/06/23) Physical Therapy Treatment Note PT-OP-A Visit Information Start: 11/03/22 13:37 Freq: Status: Active Protocol: Document 01/06/23 07:33 [facility] (Rec: 01/06/23 08:15 [facility] [id number]) Out-Patient Physical Therapy Visit Information Visit Information Visit Type Treatment Note Visit Note 12/10 Visit Start Time 07:34 Visit Stop Time 08:13 Total Visit Minutes 39 Visit Number 12 Number of ACID POLYMERIZATION OPERATOR Visits 0 PT-OP-B Current Condition Start: 11/03/22 13:37 Freq: Status: Active Protocol: Document 11/08/22 10:35 [facility] (Rec: 11/08/22 11:30 [facility] [id number]) Current Condition History of Current Condition Onset Date neck pain about 12 years ago; balance 3 years ago or more Current Complaints Neck pain/head pain and balance issues History of Current Condition Pt reportsbroke his neck in [place] is an attack but was pushed out of the hospital too quickly before Xrays and was off for 6 days. 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 He was working [employer] at the same time. Pt had C3-6 fusion about 11 years ago. about 7 months later, he lost some of the muscle in post shoulders. Pt reports head pain on R side of head and R arm has some problems sometimes. 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 he has been doing balance exercises from [employer]. Pt has issue w/clavicle pressing on trachea and some things cause coughing. 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 He has managed it okay so far.He can feel the pressure when rolling in bed. B RC issues. Pt has hx of L HS tear about 9 years ago Prior Treatments and Tests Carotid Doppler: IMPRESSION: No hemodynamically significant stenosis is seen. No significant change from the prior. Massage therapy: helps Brain MRI: IMPRESSION: BRAIN MRI: 1. No infarct or other acute intracranial abnormality. 2. Mild cerebral volume loss and mild chronic white matter small vessel ischemic changes. BRAIN MR ANGIOGRAM: 1. No high-grade stenosis or occlusion of the central intracranial arteries. NECK MR ANGIOGRAM: 1. No high-grade stenosis or occlusion of the head and neck arteries. The carotid bulbs appear widely patent. Cervical CT: Bones: No fractures or dislocations. There is mild, approximately 3 mm of C2-C3, 2 mm of C6-C7 and 2 mm of C7-T1 degenerative anterolisthesis. Visualized superior ribs are intact. Postsurgical changes compatible with C4-C6 ACDF are noted. The orthopedic hardware is intact. No lucencies are identified the bone hardware interface. Spine degenerative disc disease and facet arthropathy. No significant central canal narrowing. Severe bilateral C3-C4, C4-C5 and C6-C7 neural foraminal narrowing. Severe left C5-C6 neural foraminal narrowing. Mild osteophytic degenerative changes are noted in the sternoclavicular joints bilaterally. No definite sternoclavicular joint effusions identified. No osseous erosive changes at the sternoclavicular joints. There is widening of the right acromioclavicular joint which could be due to prior acromioplasty; please correlate with surgical history. Soft tissues: Prevertebral soft tissues are normal in thickness. No paravertebral hematomas. No apical pneumothoraces. No soft tissue inflammation or fluid collections noted adjacent to the sternoclavicular joints. Treatment Goals Patient/Caregiver Goals improve strength & balance PT-OP-C Subjective Start: 11/03/22 13:37 Freq: Status: Active Protocol: Document 01/06/23 07:33 [facility] (Rec: 01/06/23 08:15 [facility] [id number]) OP-PT Subjective Patient Comments Patient Comments pt reports neck is feeling pretty good today PT-OP-D Balance Start: 11/03/22 13:37 Freq: Status: Active Protocol: Document 11/08/22 10:35 [facility] (Rec: 11/08/22 11:30 [facility] [id number]) Balance Tests Single Limb Standing Single Limb- Right 9 sec Single Limb- Left 5 sec PT-OP-E Functional Tests Start: 11/03/22 13:37 Freq: Status: Active Protocol: Document 11/08/22 10:35 [facility] (Rec: 11/08/22 11:30 [facility] [id number]) Functional Tests Dynamic Gait Index (DGI) Score 22 Functional Gait Assessment Score PT-OP-F Manual Assessment Start: 11/03/22 13:37 Freq: Status: Active Protocol: Document 11/08/22 10:35 [facility] (Rec: 11/08/22 11:30 [facility] [id number]) Manual Assessments Soft Tissue Assessment Soft Tissue Mobility Assessment R>L cervical and cranial tightness PT-OP-G Mobility & Gait Start: 11/03/22 13:37 Freq: Status: Active Protocol: Document 11/08/22 10:35 [facility] (Rec: 11/08/22 11:30 [facility] [id number]) OP Gait Assessment Comments Gait Comments dec push off PT-OP-J Posture/Palpation/Skin Start: 11/03/22 13:37 Freq: Status: Active Protocol: Document 11/08/22 10:35 [facility] (Rec: 11/08/22 11:30 [facility] [id number]) Posture Evaluation Comments Posture Comments fwd head and neck & inc kyphosis PT-OP-K Range of Motion Start: 11/03/22 13:37 Freq: Status: Active Protocol: Document 01/04/23 11:23 [facility] (Rec: 01/04/23 12:06 [facility] [id number]) Cervical Spine Range of Motion Cervical Spine Active Degrees Flexion 57 Extension 32 Rotation Left 56 Rotation Right 60 Lateral Flexion Left 14 Lateral Flexion Right 21 ROM Limitations Pain Comments some pain PT-OP-L Special Tests Start: 11/03/22 13:37 Freq: Status: Active Protocol: Document 11/08/22 10:35 [facility] (Rec: 11/08/22 11:30 [facility] [id number]) Special Tests Cervical Spine Special Tests Spurling's Test Test Results neg Vertebral Artery Test Results neg Alar Ligament Test Results neg Neural Special Tests- Upper Body Median Nerve Tension Test Results positive B Ulnar Nerve Tension Test Results neg B Radial Nerve Tension Test Results neg B PT-OP-M Strength Start: 11/03/22 13:37 Freq: Status: Active Protocol: Document 11/08/22 10:35 [facility] (Rec: 11/08/22 11:30 [facility] [id number]) Shoulder Strength Shoulder Manual Muscle Testing Right Flexion 3+ Fair+ Extension 4 Good Abduction (C5) 3+ Fair+ External Rotation 3+ Fair+ Internal Rotation 4+ Good+ Left Flexion 3+ Fair+ Extension 4 Good Abduction (C5) 3+ Fair+ External Rotation 3 Fair Internal Rotation 4+ Good+ Hip Strength Hip Manual Muscle Testing Right Flexion (L2) 4- Good- Extension (S1) 3+ Fair+ Abduction 4- Good- External Rotation 3+ Fair+ Internal Rotation 5 Normal Left Flexion (L2) 4- Good- Extension (S1) 3+ Fair+ Abduction 4- Good- External Rotation 3+ Fair+ Internal Rotation 5 Normal Knee Strength Knee Manual Muscle Testing Right Flexion (S2) 5 Normal Extension (L3) 5 Normal Left Flexion (S2) 5 Normal Extension (L3) 5 Normal Ankle/Foot Strength Ankle and Foot Manual Muscle Testing Right Dorsiflexion (L4) 5 Normal Plantarflexion (S1) 5 Normal Inversion 4+ Good+ Eversion (S1) 5 Normal Left Dorsiflexion (L4) 5 Normal Plantarflexion (S1) 5 Normal Inversion 4+ Good+ Eversion (S1) 5 Normal Comments PF tested seated B PT-OP-Q Treatments Start: 11/03/22 13:37 Freq: Status: Active Protocol: Document 01/06/23 07:33 [facility] (Rec: 01/06/23 08:15 [facility] [id number]) Therapeutic Exercises Supine Exercises axial elonation Supine Exercise Name self resisted Reps/Minutes 5 sec x10 Sidelying Exercises open book Side bilateral Reps/Minutes 8ea Sitting Exercises chin tucks Reps/Minutes 10 Standing Exercises wall posture Standing Exercise Name added to HEP- arms at side ER Equipment Used back to wall Reps/Minutes 1 min Comments cued TA, CS chin nod neutral ext- cues all of back on wall stretch Standing Exercise Name doorway straight arm pec stretch Side bilateral Reps/Minutes 30 sec Manual Therapy Treatment Soft Tissue Mobilization SOR Mobilization Type Sustained Pressure UT/LS Body Location R>L Mobilization Type Myofascial Release,Strumming Intensity/Depth Moderate Body Position Hooklying SCM/scalenes Body Location B Mobilization Type Myofascial Release,Rolling Intensity/Depth Moderate Body Position Supine paraspinals Body Location L CS Mobilization Type Rolling,Strumming Intensity/Depth Moderate Body Position Supine Joint Mobilizations thoracic Comments transverse L T1 &2 & 3 FM PA T1-3 FM PT-OP-R Modalities Start: 11/03/22 13:37 Freq: Status: Active Protocol: Document 01/04/23 11:23 [facility] (Rec: 01/04/23 12:06 [facility] [id number]) Hot Pack/Cold Pack Treatment Hot Pack Location cervical Patient Position Hooklying Treatment Duration (minutes) 15 PT-OP-T Assessment and Plan Start: 11/03/22 13:37 Freq: Status: Active Protocol: Document 01/06/23 07:33 [facility] (Rec: 01/06/23 08:15 [facility] [id number]) Physical Therapy Assessment Goals pain Bus Person Dishwasher Goal (LTG) Pt will report worst pain in neck for a week to be no greater than 4/10. 12/31/22: GOAL MET: occasionally gets a shocking pain when turns head lately 2-310. Pt report stopping doing things that irritate it: bending over and looking down to much. Has started holding book up in front read and neck posture with activiteis in front him. LTG Duration 01.31.23 GOAL MET 12/31/22 Strength Short Term Goal (STG) Pt will be indep w/HEP 12/31/22: added open book, wall posture to HEP. STG Duration 12/29/22 Custodial Goal (LTG) Pt will score at least 4+/5 on all LE strength to imrpove LE stability and improve balance LTG Duration discontinue d/t ortho MD wanting to discontinue LE strength til surgery ROM Short Term Goal (STG) Pt will improve rotation B cervically to at least 45 deg. STG Duration achieved 01/04 Bus Person Dishwasher Goal (LTG) Pt will report min pain w/all ROM in cervical region. LTG Duration 01/31/23 SLS Custodial Goal (LTG) Pt will be able to do SLS for 15 sec B. LTG Duration discontinue goals d/t L knee pain and ortho MD told him to hold on LE ex Assessment Summary Assessment Pt required much less cueing for exercises today but still some small cues for form. He does requires cues for his posture duirng exercises. Improved R rot w/manual Physical Therapy Plan Frequency and Duration Frequency of Treatment 1-2x/wk Duration of treatment (weeks) 12 Plan of Care Start Date 11/08/22 Plan of Care End Date 01/31/23 Next Visit Focus/Plan Next Note Type Treatment Note Next Visit Plan Work on manual to improve ROM and cont to work on exercises for neck stability
--- NOTE | 2023-01-10 08:15 | PT.OTN ---
Current Diagnoses Cervicalgia (01/10/23) Other abnormalities of gait and mobility (01/10/23) Abnormal posture (01/10/23) Weakness (01/10/23) Arthrodesis status (01/10/23) Physical Therapy Treatment Note PT-OP-A Visit Information Start: 11/03/22 13:37 Freq: Status: Active Protocol: Document 01/10/23 07:35 [facility] (Rec: 01/10/23 08:17 SP [id number]) Out-Patient Physical Therapy Visit Information Visit Information Visit Type Treatment Note Visit Note 01/07 Visit Start Time 07:35 Visit Stop Time 08:15 Total Visit Minutes 40 Visit Number 13 Number of DAM OPERATOR Visits 1 PT-OP-B Current Condition Start: 11/03/22 13:37 Freq: Status: Active Protocol: Document 11/08/22 10:35 [facility] (Rec: 11/08/22 11:30 [facility] [id number]) Current Condition History of Current Condition Onset Date neck pain about 12 years ago; balance 3 years ago or more Current Complaints Neck pain/head pain and balance issues History of Current Condition Pt reportsbroke his neck in [place] is an attack but was pushed out of the hospital too quickly before Xrays and was off for 6 days. 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 He was working [employer] at the same time. Pt had C3-6 fusion about 11 years ago. about 7 months later, he lost some of the muscle in post shoulders. Pt reports head pain on R side of head and R arm has some problems sometimes. 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 he has been doing balance exercises from [employer]. Pt has issue w/clavicle pressing on trachea and some things cause coughing. 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 He has managed it okay so far.He can feel the pressure when rolling in bed. B RC issues. Pt has hx of L HS tear about 9 years ago Prior Treatments and Tests Carotid Doppler: IMPRESSION: No hemodynamically significant stenosis is seen. No significant change from the prior. Massage therapy: helps Brain MRI: IMPRESSION: BRAIN MRI: 1. No infarct or other acute intracranial abnormality. 2. Mild cerebral volume loss and mild chronic white matter small vessel ischemic changes. BRAIN MR ANGIOGRAM: 1. No high-grade stenosis or occlusion of the central intracranial arteries. NECK MR ANGIOGRAM: 1. No high-grade stenosis or occlusion of the head and neck arteries. The carotid bulbs appear widely patent. Cervical CT: Bones: No fractures or dislocations. There is mild, approximately 3 mm of C2-C3, 2 mm of C6-C7 and 2 mm of C7-T1 degenerative anterolisthesis. Visualized superior ribs are intact. Postsurgical changes compatible with C4-C6 ACDF are noted. The orthopedic hardware is intact. No lucencies are identified the bone hardware interface. Spine degenerative disc disease and facet arthropathy. No significant central canal narrowing. Severe bilateral C3-C4, C4-C5 and C6-C7 neural foraminal narrowing. Severe left C5-C6 neural foraminal narrowing. Mild osteophytic degenerative changes are noted in the sternoclavicular joints bilaterally. No definite sternoclavicular joint effusions identified. No osseous erosive changes at the sternoclavicular joints. There is widening of the right acromioclavicular joint which could be due to prior acromioplasty; please correlate with surgical history. Soft tissues: Prevertebral soft tissues are normal in thickness. No paravertebral hematomas. No apical pneumothoraces. No soft tissue inflammation or fluid collections noted adjacent to the sternoclavicular joints. Treatment Goals Patient/Caregiver Goals improve strength & balance PT-OP-C Subjective Start: 11/03/22 13:37 Freq: Status: Active Protocol: Document 01/10/23 07:35 [facility] (Rec: 01/10/23 08:17 [facility] [id number]) OP-PT Subjective Patient Comments Patient Comments Pt reports neck stiff. Has an appt with neurologist after PT tx in [facility]. PT-OP-D Balance Start: 11/03/22 13:37 Freq: Status: Active Protocol: Document 11/08/22 10:35 [facility] (Rec: 11/08/22 11:30 [facility] [id number]) Balance Tests Single Limb Standing Single Limb- Right 9 sec Single Limb- Left 5 sec PT-OP-E Functional Tests Start: 11/03/22 13:37 Freq: Status: Active Protocol: Document 11/08/22 10:35 [facility] (Rec: 11/08/22 11:30 [facility] [id number]) Functional Tests Dynamic Gait Index (DGI) Score 22 Functional Gait Assessment Score PT-OP-F Manual Assessment Start: 11/03/22 13:37 Freq: Status: Active Protocol: Document 11/08/22 10:35 [facility] (Rec: 11/08/22 11:30 [facility] [id number]) Manual Assessments Soft Tissue Assessment Soft Tissue Mobility Assessment R>L cervical and cranial tightness PT-OP-G Mobility & Gait Start: 11/03/22 13:37 Freq: Status: Active Protocol: Document 11/08/22 10:35 [facility] (Rec: 11/08/22 11:30 [facility] [id number]) OP Gait Assessment Comments Gait Comments dec push off PT-OP-J Posture/Palpation/Skin Start: 11/03/22 13:37 Freq: Status: Active Protocol: Document 11/08/22 10:35 [facility] (Rec: 11/08/22 11:30 [facility] [id number]) Posture Evaluation Comments Posture Comments fwd head and neck & inc kyphosis PT-OP-K Range of Motion Start: 11/03/22 13:37 Freq: Status: Active Protocol: Document 01/04/23 11:23 [facility] (Rec: 01/04/23 12:06 [facility] [id number]) Cervical Spine Range of Motion Cervical Spine Active Degrees Flexion 57 Extension 32 Rotation Left 56 Rotation Right 60 Lateral Flexion Left 14 Lateral Flexion Right 21 ROM Limitations Pain Comments some pain PT-OP-L Special Tests Start: 11/03/22 13:37 Freq: Status: Active Protocol: Document 11/08/22 10:35 [facility] (Rec: 11/08/22 11:30 [facility] [id number]) Special Tests Cervical Spine Special Tests Spurling's Test Test Results neg Vertebral Artery Test Results neg Alar Ligament Test Results neg Neural Special Tests- Upper Body Median Nerve Tension Test Results positive B Ulnar Nerve Tension Test Results neg B Radial Nerve Tension Test Results neg B PT-OP-M Strength Start: 11/03/22 13:37 Freq: Status: Active Protocol: Document 11/08/22 10:35 [facility] (Rec: 11/08/22 11:30 [facility] [id number]) Shoulder Strength Shoulder Manual Muscle Testing Right Flexion 3+ Fair+ Extension 4 Good Abduction (C5) 3+ Fair+ External Rotation 3+ Fair+ Internal Rotation 4+ Good+ Left Flexion 3+ Fair+ Extension 4 Good Abduction (C5) 3+ Fair+ External Rotation 3 Fair Internal Rotation 4+ Good+ Hip Strength Hip Manual Muscle Testing Right Flexion (L2) 4- Good- Extension (S1) 3+ Fair+ Abduction 4- Good- External Rotation 3+ Fair+ Internal Rotation 5 Normal Left Flexion (L2) 4- Good- Extension (S1) 3+ Fair+ Abduction 4- Good- External Rotation 3+ Fair+ Internal Rotation 5 Normal Knee Strength Knee Manual Muscle Testing Right Flexion (S2) 5 Normal Extension (L3) 5 Normal Left Flexion (S2) 5 Normal Extension (L3) 5 Normal Ankle/Foot Strength Ankle and Foot Manual Muscle Testing Right Dorsiflexion (L4) 5 Normal Plantarflexion (S1) 5 Normal Inversion 4+ Good+ Eversion (S1) 5 Normal Left Dorsiflexion (L4) 5 Normal Plantarflexion (S1) 5 Normal Inversion 4+ Good+ Eversion (S1) 5 Normal Comments PF tested seated B PT-OP-Q Treatments Start: 11/03/22 13:37 Freq: Status: Active Protocol: Document 01/10/23 07:35 [facility] (Rec: 01/10/23 08:17 [facility] [id number]) Therapeutic Exercises Sitting Exercises Axial Elongation Sitting Exercise Name w /chin tuck Side bilateral Reps/Minutes 5 SH x 8 Standing Exercises Ys off wall Standing Exercise Name initiated in PT Side bilateral Reps/Minutes x5 reps Comments good feedback response interscap/LT facilitation shld ext/ CS rotation nods Standing Exercise Name sustained hold Side bilateral Resistance TB #2 Reps/Minutes x10 Comments good feedback response wall posture Standing Exercise Name reviewed HEP- arms at side ER Equipment Used back to wall Reps/Minutes 20 SH x5 reps Comments cued TA, CS chin nod neutral, back on wall rows Standing Exercise Name B row & B ext Side bilateral Equipment Used L2>5 Reps/Minutes 15 ea Comments cued CS neutral Manual Therapy Treatment Soft Tissue Mobilization SOR Mobilization Type Sustained Pressure UT/LS Body Location R>L Mobilization Type Myofascial Release,Strumming Intensity/Depth Moderate Body Position Hooklying SCM/scalenes Body Location B Mobilization Type Myofascial Release,Rolling Intensity/Depth Moderate Body Position Supine paraspinals Body Location L CS Mobilization Type Rolling,Strumming Intensity/Depth Moderate Body Position Supine Manual Traction CS Details gentle superior distraction Body Position Hooklying Comments good feedback response PT-OP-R Modalities Start: 11/03/22 13:37 Freq: Status: Active Protocol: Document 01/04/23 11:23 [facility] (Rec: 01/04/23 12:06 [facility] [id number]) Hot Pack/Cold Pack Treatment Hot Pack Location cervical Patient Position Hooklying Treatment Duration (minutes) 15 PT-OP-T Assessment and Plan Start: 11/03/22 13:37 Freq: Status: Active Protocol: Document 01/10/23 07:35 SP (Rec: 01/10/23 08:17 SP [id number]) Physical Therapy Assessment Goals pain Duct Layer Goal (LTG) Pt will report worst pain in neck for a week to be no greater than 4/10. 12/31/22: GOAL MET: occasionally gets a shocking pain when turns head lately 2-310. Pt report stopping doing things that irritate it: bending over and looking down to much. Has started holding book up in front read and neck posture with activiteis in front him. LTG Duration 01.31.23 GOAL MET 12/31/22 Strength Short Term Goal (STG) Pt will be indep w/HEP 12/31/22: added open book, wall posture to HEP. STG Duration 12/29/22 Fdc Goal (LTG) Pt will score at least 4+/5 on all LE strength to imrpove LE stability and improve balance LTG Duration discontinue d/t ortho MD wanting to discontinue LE strength til surgery ROM Short Term Goal (STG) Pt will improve rotation B cervically to at least 45 deg. STG Duration achieved 01/04 Fdc Goal (LTG) Pt will report min pain w/all ROM in cervical region. LTG Duration 01/31/23 SLS Duct Layer Goal (LTG) Pt will be able to do SLS for 15 sec B. LTG Duration discontinue goals d/t L knee pain and ortho MD told him to hold on LE ex Assessment Summary Assessment Pt responded well to manual, able turn head further, good feedback mid thoracic LT recruitment painfree neck resisted rows, ext w/ HT nods this tx and wall posture. Pt feels posture improving, more aware. Little limited FF OH during Ys off wall but felt good interscap recruitment. Physical Therapy Plan Frequency and Duration Frequency of Treatment 1-2x/wk Duration of treatment (weeks) 12 Plan of Care Start Date 11/08/22 Plan of Care End Date 01/31/23 Therapeutic Interventions Therapeutic Interventions Aquatic Therapy,Balance Training,Gait Training,Home Exercise Program,Joint Mobilizations,Manual Therapy, Neuromuscular Re-education, Orthotic/Prosthetic Management ,Patient/Caregiver Education, Self-Care/Home Management,Soft Tissue Mobilization,Taping, Therapeutic Activities, Therapeutic Exercises, Vestibular Rehabilitation Modalities Cold Pack/Ice Massage,Electric Stimulation,Hot Packs, Infrared Therapy,Ultrasound Next Visit Focus/Plan Next Note Type Treatment Note Next Visit Plan Review HEP, recheck if Ys offwall ok for home. Work on manual to improve ROM and cont to work on exercises for neck stability
--- NOTE | 2023-01-12 10:34 | PT.OTN ---
Current Diagnoses Cervicalgia (01/12/23) Other abnormalities of gait and mobility (01/12/23) Abnormal posture (01/12/23) Weakness (01/12/23) Arthrodesis status (01/12/23) Physical Therapy Treatment Note PT-OP-A Visit Information Start: 11/03/22 13:37 Freq: Status: Active Protocol: Document 01/12/23 09:10 [facility] (Rec: 01/12/23 10:34 [facility] [id number]) Out-Patient Physical Therapy Visit Information Visit Information Visit Type Treatment Note Visit Note 02/07 Visit Start Time 09:06 Visit Stop Time 10:00 Total Visit Minutes 54 Visit Number 14 Number of JOINER Visits 0 PT-OP-B Current Condition Start: 11/03/22 13:37 Freq: Status: Active Protocol: Document 11/08/22 10:35 [facility] (Rec: 11/08/22 11:30 [facility] [id number]) Current Condition History of Current Condition Onset Date neck pain about 12 years ago; balance 3 years ago or more Current Complaints Neck pain/head pain and balance issues History of Current Condition Pt reportsbroke his [place] in [place] is an attack but was pushed out of the hospital too quickly before Xrays and was off for 6 days. 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 He was working [employer] at the same time. Pt had C3-6 fusion about 11 years ago. about 7 months later, he lost some of the muscle in post shoulders. Pt reports head pain on R side of head and R arm has some problems sometimes. 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 he has been doing balance exercises from [employer]. Pt has issue w/clavicle pressing on trachea and some things cause coughing. 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 He has managed it okay so far.He can feel the pressure when rolling in bed. B RC issues. Pt has hx of L HS tear about 9 years ago Prior Treatments and Tests Carotid Doppler: IMPRESSION: No hemodynamically significant stenosis is seen. No significant change from the prior. Massage therapy: helps Brain MRI: IMPRESSION: BRAIN MRI: 1. No infarct or other acute intracranial abnormality. 2. Mild cerebral volume loss and mild chronic white matter small vessel ischemic changes. BRAIN MR ANGIOGRAM: 1. No high-grade stenosis or occlusion of the central intracranial arteries. NECK MR ANGIOGRAM: 1. No high-grade stenosis or occlusion of the head and neck arteries. The carotid bulbs appear widely patent. Cervical CT: Bones: No fractures or dislocations. There is mild, approximately 3 mm of C2-C3, 2 mm of C6-C7 and 2 mm of C7-T1 degenerative anterolisthesis. Visualized superior ribs are intact. Postsurgical changes compatible with C4-C6 ACDF are noted. The orthopedic hardware is intact. No lucencies are identified the bone hardware interface. Spine degenerative disc disease and facet arthropathy. No significant central canal narrowing. Severe bilateral C3-C4, C4-C5 and C6-C7 neural foraminal narrowing. Severe left C5-C6 neural foraminal narrowing. Mild osteophytic degenerative changes are noted in the sternoclavicular joints bilaterally. No definite sternoclavicular joint effusions identified. No osseous erosive changes at the sternoclavicular joints. There is widening of the right acromioclavicular joint which could be due to prior acromioplasty; please correlate with surgical history. Soft tissues: Prevertebral soft tissues are normal in thickness. No paravertebral hematomas. No apical pneumothoraces. No soft tissue inflammation or fluid collections noted adjacent to the sternoclavicular joints. Treatment Goals Patient/Caregiver Goals improve strength & balance PT-OP-C Subjective Start: 11/03/22 13:37 Freq: Status: Active Protocol: Document 01/12/23 09:10 [facility] (Rec: 01/12/23 10:34 [facility] [id number]) OP-PT Subjective Patient Comments Patient Comments Pt reports sometimes sleeping, overhead and bending over activities irritate neck PT-OP-D Balance Start: 11/03/22 13:37 Freq: Status: Active Protocol: Document 11/08/22 10:35 [facility] (Rec: 11/08/22 11:30 [facility] [id number]) Balance Tests Single Limb Standing Single Limb- Right 9 sec Single Limb- Left 5 sec PT-OP-E Functional Tests Start: 11/03/22 13:37 Freq: Status: Active Protocol: Document 11/08/22 10:35 [facility] (Rec: 11/08/22 11:30 [facility] [id number]) Functional Tests Dynamic Gait Index (DGI) Score 22 Functional Gait Assessment Score 2430 PT-OP-F Manual Assessment Start: 11/03/22 13:37 Freq: Status: Active Protocol: Document 11/08/22 10:35 [facility] (Rec: 11/08/22 11:30 [facility] [id number]) Manual Assessments Soft Tissue Assessment Soft Tissue Mobility Assessment R>L cervical and cranial tightness PT-OP-G Mobility & Gait Start: 11/03/22 13:37 Freq: Status: Active Protocol: Document 11/08/22 10:35 [facility] (Rec: 11/08/22 11:30 [facility] [id number]) OP Gait Assessment Comments Gait Comments dec push off PT-OP-J Posture/Palpation/Skin Start: 11/03/22 13:37 Freq: Status: Active Protocol: Document 11/08/22 10:35 [facility] (Rec: 11/08/22 11:30 [facility] [id number]) Posture Evaluation Comments Posture Comments fwd head and neck & inc kyphosis PT-OP-K Range of Motion Start: 11/03/22 13:37 Freq: Status: Active Protocol: Document 01/04/23 11:23 [facility] (Rec: 01/04/23 12:06 [facility] [id number]) Cervical Spine Range of Motion Cervical Spine Active Degrees Flexion 57 Extension 32 Rotation Left 56 Rotation Right 60 Lateral Flexion Left 14 Lateral Flexion Right 21 ROM Limitations Pain Comments some pain PT-OP-L Special Tests Start: 11/03/22 13:37 Freq: Status: Active Protocol: Document 11/08/22 10:35 [facility] (Rec: 11/08/22 11:30 [facility] [id number]) Special Tests Cervical Spine Special Tests Spurling's Test Test Results neg Vertebral Artery Test Results neg Alar Ligament Test Results neg Neural Special Tests- Upper Body Median Nerve Tension Test Results positive B Ulnar Nerve Tension Test Results neg B Radial Nerve Tension Test Results neg B PT-OP-M Strength Start: 11/03/22 13:37 Freq: Status: Active Protocol: Document 11/08/22 10:35 [facility] (Rec: 11/08/22 11:30 [facility] [id number]) Shoulder Strength Shoulder Manual Muscle Testing Right Flexion 3+ Fair+ Extension 4 Good Abduction (C5) 3+ Fair+ External Rotation 3+ Fair+ Internal Rotation 4+ Good+ Left Flexion 3+ Fair+ Extension 4 Good Abduction (C5) 3+ Fair+ External Rotation 3 Fair Internal Rotation 4+ Good+ Hip Strength Hip Manual Muscle Testing Right Flexion (L2) 4- Good- Extension (S1) 3+ Fair+ Abduction 4- Good- External Rotation 3+ Fair+ Internal Rotation 5 Normal Left Flexion (L2) 4- Good- Extension (S1) 3+ Fair+ Abduction 4- Good- External Rotation 3+ Fair+ Internal Rotation 5 Normal Knee Strength Knee Manual Muscle Testing Right Flexion (S2) 5 Normal Extension (L3) 5 Normal Left Flexion (S2) 5 Normal Extension (L3) 5 Normal Ankle/Foot Strength Ankle and Foot Manual Muscle Testing Right Dorsiflexion (L4) 5 Normal Plantarflexion (S1) 5 Normal Inversion 4+ Good+ Eversion (S1) 5 Normal Left Dorsiflexion (L4) 5 Normal Plantarflexion (S1) 5 Normal Inversion 4+ Good+ Eversion (S1) 5 Normal Comments PF tested seated B PT-OP-Q Treatments Start: 11/03/22 13:37 Freq: Status: Active Protocol: Document 01/12/23 09:10 [facility] (Rec: 01/12/23 10:34 [facility] [id number]) Therapeutic Exercises Standing Exercises Ys off wall Standing Exercise Name cues for posture Side bilateral Reps/Minutes x5 reps shld ext/ CS rotation nods Standing Exercise Name sustained hold Side bilateral Resistance TB #2 Reps/Minutes x10 Comments good feedback response wall posture Standing Exercise Name reviewed HEP- arms at side ER Equipment Used back to wall Reps/Minutes 30 Sec x2 Comments cued TA, CS chin nod neutral, back on wall, cues to keep feet away from wa Manual Therapy Treatment Soft Tissue Mobilization SOR Mobilization Type Sustained Pressure UT/LS Body Location R>L Mobilization Type Myofascial Release,Strumming Intensity/Depth Moderate Body Position Hooklying SCM/scalenes Body Location B Mobilization Type Myofascial Release,Rolling Intensity/Depth Moderate Body Position Supine paraspinals Body Location L CS Mobilization Type Rolling,Strumming Intensity/Depth Moderate Body Position Supine Joint Mobilizations thoracic Comments PA and L UPA T1-3 FM Cervical Comments C2 transverse R FM Self-Care/Home Management Treatment Education Other Education edu re: lifting head as he lifts his arm vs looking up first when dong over head tasks. Edu w/hip hinge and using availabe hip range first then using knees as able prior to bending at spine at to stay in bent position for only short time. Edu for sleep alignment and how to use towel to offload shoulder 10 min PT-OP-R Modalities Start: 11/03/22 13:37 Freq: Status: Active Protocol: Document 01/12/23 09:10 [facility] (Rec: 01/12/23 10:34 [facility] [id number]) Hot Pack/Cold Pack Treatment Hot Pack Location cervical Patient Position Hooklying Treatment Duration (minutes) 15 PT-OP-T Assessment and Plan Start: 11/03/22 13:37 Freq: Status: Active Protocol: Document 01/12/23 09:10 [facility] (Rec: 01/12/23 10:34 [facility] [id number]) Physical Therapy Assessment Goals pain Fur Joiner Goal (LTG) Pt will report worst pain in neck for a week to be no greater than 4/10. 12/31/22: GOAL MET: occasionally gets a shocking pain when turns head lately 2-3. Pt report stopping doing things that irritate it: bending over and looking down to much. Has started holding book up in front read and neck posture with activiteis in front him. LTG Duration 01.31.23 GOAL MET 12/31/22 Strength Short Term Goal (STG) Pt will be indep w/HEP 12/31/22: added open book, wall posture to HEP. STG Duration 12/29/22 [facility] Goal (LTG) Pt will score at least 4+/5 on all LE strength to imrpove LE stability and improve balance LTG Duration discontinue d/t ortho MD wanting to discontinue LE strength til surgery ROM Short Term Goal (STG) Pt will improve rotation B cervically to at least 45 deg. STG Duration achieved 01/04 Fur Joiner Goal (LTG) Pt will report min pain w/all ROM in cervical region. LTG Duration 01/31/23 SLS [facility] Goal (LTG) Pt will be able to do SLS for 15 sec B. LTG Duration discontinue goals d/t L knee pain and ortho MD told him to hold on LE ex Assessment Summary Assessment Pt did well with education and verbailized understanding. Ceus still needed w/exercises but doing better w/those. He is improving with thoraicc mobility which should help to offload neck w/up/down motions Physical Therapy Plan Frequency and Duration Frequency of Treatment 1-2x/wk Duration of treatment (weeks) 12 Plan of Care Start Date 11/08/22 Plan of Care End Date 01/31/23 Next Visit Focus/Plan Next Note Type Treatment Note Next Visit Plan Work on manual to improve ROM and cont to work on exercises for neck stability
--- NOTE | 2023-01-17 09:45 | PT.OTN ---
Current Diagnoses Cervicalgia (01/17/23) Other abnormalities of gait and mobility (01/17/23) Abnormal posture (01/17/23) Weakness (01/17/23) Arthrodesis status (01/17/23) Physical Therapy Treatment Note PT-OP-A Visit Information Start: 11/03/22 13:37 Freq: Status: Active Protocol: Document 01/17/23 09:02 [facility] (Rec: 01/17/23 09:49 [facility] [id number]) Out-Patient Physical Therapy Visit Information Visit Information Visit Type Treatment Note Visit Note 03/09 POC update pre 01/31. Visit Start Time 09:02 Visit Stop Time 09:45 Total Visit Minutes 43 Visit Number 15 Number of RECYCLING TECH Visits 1 PT-OP-B Current Condition Start: 11/03/22 13:37 Freq: Status: Active Protocol: Document 11/08/22 10:35 [facility] (Rec: 11/08/22 11:30 [facility] [id number]) Current Condition History of Current Condition Onset Date neck pain about 12 years ago; balance 3 years ago or more Current Complaints Neck pain/head pain and balance issues History of Current Condition Pt reportsbroke his neck in [place] is an attack but was pushed out of the hospital too quickly before Xrays and was off for 6 days. 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 He was working [employer] at the same time. Pt had C3-6 fusion about 11 years ago. about 7 months later, he lost some of the muscle in post shoulders. Pt reports head pain on R side of head and R arm has some problems sometimes. 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 he has been doing balance exercises from [email or web address]. Pt has issue w/clavicle pressing on trachea and some things cause coughing. 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 He has managed it okay so far.He can feel the pressure when rolling in bed. B RC issues. Pt has hx of L HS tear about 9 years ago Prior Treatments and Tests Carotid Doppler: IMPRESSION: No hemodynamically significant stenosis is seen. No significant change from the prior. Massage therapy: helps Brain MRI: IMPRESSION: BRAIN MRI: 1. No infarct or other acute intracranial abnormality. 2. Mild cerebral volume loss and mild chronic white matter small vessel ischemic changes. BRAIN MR ANGIOGRAM: 1. No high-grade stenosis or occlusion of the central intracranial arteries. NECK MR ANGIOGRAM: 1. No high-grade stenosis or occlusion of the head and neck arteries. The carotid bulbs appear widely patent. Cervical CT: Bones: No fractures or dislocations. There is mild, approximately 3 mm of C2-C3, 2 mm of C6-C7 and 2 mm of C7-T1 degenerative anterolisthesis. Visualized superior ribs are intact. Postsurgical changes compatible with C4-C6 ACDF are noted. The orthopedic hardware is intact. No lucencies are identified the bone hardware interface. Spine degenerative disc disease and facet arthropathy. No significant central canal narrowing. Severe bilateral C3-C4, C4-C5 and C6-C7 neural foraminal narrowing. Severe left C5-C6 neural foraminal narrowing. Mild osteophytic degenerative changes are noted in the sternoclavicular joints bilaterally. No definite sternoclavicular joint effusions identified. No osseous erosive changes at the sternoclavicular joints. There is widening of the right acromioclavicular joint which could be due to prior acromioplasty; please correlate with surgical history. Soft tissues: Prevertebral soft tissues are normal in thickness. No paravertebral hematomas. No apical pneumothoraces. No soft tissue inflammation or fluid collections noted adjacent to the sternoclavicular joints. Treatment Goals Patient/Caregiver Goals improve strength & balance PT-OP-C Subjective Start: 11/03/22 13:37 Freq: Status: Active Protocol: Document 01/17/23 09:02 [facility] (Rec: 01/17/23 09:49 [facility] [id number]) OP-PT Subjective Patient Comments Patient Comments Pt PT-OP-D Balance Start: 11/03/22 13:37 Freq: Status: Active Protocol: Document 11/08/22 10:35 [facility] (Rec: 11/08/22 11:30 [facility] [id number]) Balance Tests Single Limb Standing Single Limb- Right 9 sec Single Limb- Left 5 sec PT-OP-E Functional Tests Start: 11/03/22 13:37 Freq: Status: Active Protocol: Document 11/08/22 10:35 [facility] (Rec: 11/08/22 11:30 [facility] [id number]) Functional Tests Dynamic Gait Index (DGI) Score 22 Functional Gait Assessment Score 24/30 PT-OP-F Manual Assessment Start: 11/03/22 13:37 Freq: Status: Active Protocol: Document 11/08/22 10:35 [facility] (Rec: 11/08/22 11:30 [facility] [id number]) Manual Assessments Soft Tissue Assessment Soft Tissue Mobility Assessment R>L cervical and cranial tightness PT-OP-G Mobility & Gait Start: 11/03/22 13:37 Freq: Status: Active Protocol: Document 11/08/22 10:35 [facility] (Rec: 11/08/22 11:30 [facility] [id number]) OP Gait Assessment Comments Gait Comments dec push off PT-OP-J Posture/Palpation/Skin Start: 11/03/22 13:37 Freq: Status: Active Protocol: Document 11/08/22 10:35 [facility] (Rec: 11/08/22 11:30 [facility] [id number]) Posture Evaluation Comments Posture Comments fwd head and neck & inc kyphosis PT-OP-K Range of Motion Start: 11/03/22 13:37 Freq: Status: Active Protocol: Document 01/04/23 11:23 [facility] (Rec: 01/04/23 12:06 [facility] [id number]) Cervical Spine Range of Motion Cervical Spine Active Degrees Flexion 57 Extension 32 Rotation Left 56 Rotation Right 60 Lateral Flexion Left 14 Lateral Flexion Right 21 ROM Limitations Pain Comments some pain PT-OP-L Special Tests Start: 11/03/22 13:37 Freq: Status: Active Protocol: Document 11/08/22 10:35 [facility] (Rec: 11/08/22 11:30 [facility] [id number]) Special Tests Cervical Spine Special Tests Spurling's Test Test Results neg Vertebral Artery Test Results neg Alar Ligament Test Results neg Neural Special Tests- Upper Body Median Nerve Tension Test Results positive B Ulnar Nerve Tension Test Results neg B Radial Nerve Tension Test Results neg B PT-OP-M Strength Start: 11/03/22 13:37 Freq: Status: Active Protocol: Document 11/08/22 10:35 [facility] (Rec: 11/08/22 11:30 [facility] [id number]) Shoulder Strength Shoulder Manual Muscle Testing Right Flexion 3+ Fair+ Extension 4 Good Abduction (C5) 3+ Fair+ External Rotation 3+ Fair+ Internal Rotation 4+ Good+ Left Flexion 3+ Fair+ Extension 4 Good Abduction (C5) 3+ Fair+ External Rotation 3 Fair Internal Rotation 4+ Good+ Hip Strength Hip Manual Muscle Testing Right Flexion (L2) 4- Good- Extension (S1) 3+ Fair+ Abduction 4- Good- External Rotation 3+ Fair+ Internal Rotation 5 Normal Left Flexion (L2) 4- Good- Extension (S1) 3+ Fair+ Abduction 4- Good- External Rotation 3+ Fair+ Internal Rotation 5 Normal Knee Strength Knee Manual Muscle Testing Right Flexion (S2) 5 Normal Extension (L3) 5 Normal Left Flexion (S2) 5 Normal Extension (L3) 5 Normal Ankle/Foot Strength Ankle and Foot Manual Muscle Testing Right Dorsiflexion (L4) 5 Normal Plantarflexion (S1) 5 Normal Inversion 4+ Good+ Eversion (S1) 5 Normal Left Dorsiflexion (L4) 5 Normal Plantarflexion (S1) 5 Normal Inversion 4+ Good+ Eversion (S1) 5 Normal Comments PF tested seated B PT-OP-Q Treatments Start: 11/03/22 13:37 Freq: Status: Active Protocol: Document 01/17/23 09:02 [facility] (Rec: 01/17/23 09:49 [facility] [id number]) Therapeutic Exercises Supine Exercises axial elonation Supine Exercise Name self resisted Reps/Minutes 5 sec x10 Sidelying Exercises open book Side bilateral Reps/Minutes 5 Comments good form Standing Exercises shld ext/ CS rotation nods Standing Exercise Name sustained hold Side bilateral Resistance TB #2 Reps/Minutes 5 reps, nod x5 reps each side Comments good feedback response wall posture Standing Exercise Name reviewed HEP- arms at side ER Equipment Used back to wall Reps/Minutes 30 Sec x2 Comments cued TA, CS chin nod neutral, back on wall, cues to keep feet away from wa stretch Standing Exercise Name pec, UT, LS Side bilateral Reps/Minutes 30 sec each Comments good feedback, light over pressure if needed Other Exercises median nerve glide Other Exercise Name initiated in PT Reps/Minutes x3 reps Comments good feedback stretch quadruped Other Exercise Name 1. neck elongation 2. UE ext 3 . thread needle Reps/Minutes x3 reps each Comments initiated in PT 01/17 Manual Therapy Treatment Soft Tissue Mobilization SOR Mobilization Type Sustained Pressure UT/LS Body Location R>L Mobilization Type Myofascial Release,Strumming Intensity/Depth Moderate Body Position Hooklying SCM/scalenes Body Location B Mobilization Type Myofascial Release,Rolling Intensity/Depth Moderate Body Position Supine paraspinals Body Location L CS Mobilization Type Rolling,Strumming Intensity/Depth Moderate Body Position Supine PT-OP-R Modalities Start: 11/03/22 13:37 Freq: Status: Active Protocol: Document 01/12/23 09:10 [facility] (Rec: 01/12/23 10:34 [facility] [id number]) Hot Pack/Cold Pack Treatment Hot Pack Location cervical Patient Position Hooklying Treatment Duration (minutes) 15 PT-OP-T Assessment and Plan Start: 11/03/22 13:37 Freq: Status: Active Protocol: Document 01/17/23 09:02 [facility] (Rec: 01/17/23 09:49 [facility] [id number]) Physical Therapy Assessment Goals pain [facility]iary Goal (LTG) Pt will report worst pain in neck for a week to be no greater than 4/10. 12/31/22: GOAL MET: occasionally gets a shocking pain when turns head lately 2-3/10. Pt report stopping doing things that irritate it: bending over and looking down to much. Has started holding book up in front read and neck posture with activiteis in front him. LTG Duration 01.31.23 GOAL MET 12/31/22 Strength Short Term Goal (STG) Pt will be indep w/HEP 12/31/22: added open book, wall posture to HEP. STG Duration 12/29/22 Pilot Plant Supervisor Goal (LTG) Pt will score at least 4+/5 on all LE strength to imrpove LE stability and improve balance LTG Duration discontinue d/t ortho MD wanting to discontinue LE strength til surgery ROM Short Term Goal (STG) Pt will improve rotation B cervically to at least 45 deg. STG Duration achieved 01/04 [facility] Goal (LTG) Pt will report min pain w/all ROM in cervical region. LTG Duration 01/31/23 SLS [facility] Goal (LTG) Pt will be able to do SLS for 15 sec B. LTG Duration discontinue goals d/t L knee pain and ortho MD told him to hold on LE ex Assessment Summary Assessment Pt good carryover cues for neck elongation, chin nod CS neutral positioning and no UT recruitment during stretches, shld ext nods. Pt reports performs alot stretching/ ROM throughout day. Pt tolerated quadruped if cushion under knees. Reassess next tx for home. Physical Therapy Plan Frequency and Duration Frequency of Treatment 1-2x/wk Duration of treatment (weeks) 12 Plan of Care Start Date 11/08/22 Plan of Care End Date 01/31/23 Therapeutic Interventions Therapeutic Interventions Aquatic Therapy,Balance Training,Gait Training,Home Exercise Program,Joint Mobilizations,Manual Therapy, Neuromuscular Re-education, Orthotic/Prosthetic Management ,Patient/Caregiver Education, Self-Care/Home Management,Soft Tissue Mobilization,Taping, Therapeutic Activities, Therapeutic Exercises, Vestibular Rehabilitation Modalities Cold Pack/Ice Massage,Electric Stimulation,Hot Packs, Infrared Therapy,Ultrasound Next Visit Focus/Plan Next Note Type Treatment Note Next Visit Plan recheck quadruped for HEP. POC: Work on manual to improve ROM and cont to work on exercises for neck stability
--- NOTE | 2023-01-20 09:47 | PT.OPPN ---
Current Diagnoses Cervicalgia (01/20/23) Other abnormalities of gait and mobility (01/20/23) Abnormal posture (01/20/23) Weakness (01/20/23) Arthrodesis status (01/20/23) Physical Therapy Progress Note PT-OP-A Visit Information Start: 11/03/22 13:37 Freq: Status: Active Protocol: Document 01/20/23 08:29 [facility] (Rec: 01/20/23 09:11 [facility] [id number]) Out-Patient Physical Therapy Visit Information Visit Information Visit Type Progress Note Visit Note 04/09 Visit Start Time 08:28 Visit Stop Time 09:10 Total Visit Minutes 42 Visit Number 16 Number of DIRECTOR OF BILLING Visits 0 PT-OP-B Current Condition Start: 11/03/22 13:37 Freq: Status: Active Protocol: Document 11/08/22 10:35 [facility] (Rec: 11/08/22 11:30 [facility] [id number]) Current Condition History of Current Condition Onset Date neck pain about 12 years ago; balance 3 years ago or more Current Complaints Neck pain/head pain and balance issues History of Current Condition Pt reportsbroke his [place] in [place] is an attack but was pushed out of the hospital too quickly before Xrays and was off for 6 days. 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 He was working [employer] at the same time. Pt had C3-6 fusion about 11 years ago. about 7 months later, he lost some of the muscle in post shoulders. Pt reports head pain on R side of head and R arm has some problems sometimes. 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 he has been doing balance exercises from [employer]. Pt has issue w/clavicle pressing on trachea and some things cause coughing. He started [employer] a while ago but stopped unsure why. He has managed it okay so far.He can feel the pressure when rolling in bed. B RC issues. Pt has hx of L HS tear about 9 years ago Prior Treatments and Tests Carotid Doppler: IMPRESSION: No hemodynamically significant stenosis is seen. No significant change from the prior. Massage therapy: helps Brain MRI: IMPRESSION: BRAIN MRI: 1. No infarct or other acute intracranial abnormality. 2. Mild cerebral volume loss and mild chronic white matter small vessel ischemic changes. BRAIN MR ANGIOGRAM: 1. No high-grade stenosis or occlusion of the central intracranial arteries. NECK MR ANGIOGRAM: 1. No high-grade stenosis or occlusion of the head and neck arteries. The carotid bulbs appear widely patent. Cervical CT: Bones: No fractures or dislocations. There is mild, approximately 3 mm of C2-C3, 2 mm of C6-C7 and 2 mm of C7-T1 degenerative anterolisthesis. Visualized superior ribs are intact. Postsurgical changes compatible with C4-C6 ACDF are noted. The orthopedic hardware is intact. No lucencies are identified the bone hardware interface. Spine degenerative disc disease and facet arthropathy. No significant central canal narrowing. Severe bilateral C3-C4, C4-C5 and C6-C7 neural foraminal narrowing. Severe left C5-C6 neural foraminal narrowing. Mild osteophytic degenerative changes are noted in the sternoclavicular joints bilaterally. No definite sternoclavicular joint effusions identified. No osseous erosive changes at the sternoclavicular joints. There is widening of the right acromioclavicular joint which could be due to prior acromioplasty; please correlate with surgical history. Soft tissues: Prevertebral soft tissues are normal in thickness. No paravertebral hematomas. No apical pneumothoraces. No soft tissue inflammation or fluid collections noted adjacent to the sternoclavicular joints. Treatment Goals Patient/Caregiver Goals improve strength & balance PT-OP-C Subjective Start: 11/03/22 13:37 Freq: Status: Active Protocol: Document 01/20/23 08:29 [facility] (Rec: 01/20/23 09:11 [facility] [id number]) OP-PT Subjective Patient Comments Patient Comments Pt reports some stiffness in R neck yesterday. NOtes pain hasn't been more than 3/10. better as the day goes on Patient Questionnaires Neck Disability Index NDI Score 16/50 PT-OP-D Balance Start: 11/03/22 13:37 Freq: Status: Active Protocol: Document 11/08/22 10:35 [facility] (Rec: 11/08/22 11:30 [facility] [id number]) Balance Tests Single Limb Standing Single Limb- Right 9 sec Single Limb- Left 5 sec PT-OP-E Functional Tests Start: 11/03/22 13:37 Freq: Status: Active Protocol: Document 11/08/22 10:35 [facility] (Rec: 11/08/22 11:30 [facility] [id number]) Functional Tests Dynamic Gait Index (DGI) Score 22 Functional Gait Assessment Score PT-OP-F Manual Assessment Start: 11/03/22 13:37 Freq: Status: Active Protocol: Document 11/08/22 10:35 [facility] (Rec: 11/08/22 11:30 [facility] [id number]) Manual Assessments Soft Tissue Assessment Soft Tissue Mobility Assessment R>L cervical and cranial tightness PT-OP-G Mobility & Gait Start: 11/03/22 13:37 Freq: Status: Active Protocol: Document 11/08/22 10:35 [facility] (Rec: 11/08/22 11:30 [facility] [id number]) OP Gait Assessment Comments Gait Comments dec push off PT-OP-J Posture/Palpation/Skin Start: 11/03/22 13:37 Freq: Status: Active Protocol: Document 11/08/22 10:35 [facility] (Rec: 11/08/22 11:30 [facility] [id number]) Posture Evaluation Comments Posture Comments fwd head and neck & inc kyphosis PT-OP-K Range of Motion Start: 11/03/22 13:37 Freq: Status: Active Protocol: Document 01/20/23 08:29 [facility] (Rec: 01/20/23 09:11 [facility] [id number]) Cervical Spine Range of Motion Cervical Spine Active Degrees Flexion 54 Extension 40 Rotation Left 54 Rotation Right 36 Lateral Flexion Left 20 Lateral Flexion Right 21 ROM Limitations Pain Comments stiff flex, some pain ext & to R PT-OP-L Special Tests Start: 11/03/22 13:37 Freq: Status: Active Protocol: Document 11/08/22 10:35 [facility] (Rec: 11/08/22 11:30 [facility] [id number]) Special Tests Cervical Spine Special Tests Spurling's Test Test Results neg Vertebral Artery Test Results neg Alar Ligament Test Results neg Neural Special Tests- Upper Body Median Nerve Tension Test Results positive B Ulnar Nerve Tension Test Results neg B Radial Nerve Tension Test Results neg B PT-OP-M Strength Start: 11/03/22 13:37 Freq: Status: Active Protocol: Document 11/08/22 10:35 [facility] (Rec: 11/08/22 11:30 [facility] [id number]) Shoulder Strength Shoulder Manual Muscle Testing Right Flexion 3+ Fair+ Extension 4 Good Abduction (C5) 3+ Fair+ External Rotation 3+ Fair+ Internal Rotation 4+ Good+ Left Flexion 3+ Fair+ Extension 4 Good Abduction (C5) 3+ Fair+ External Rotation 3 Fair Internal Rotation 4+ Good+ Hip Strength Hip Manual Muscle Testing Right Flexion (L2) 4- Good- Extension (S1) 3+ Fair+ Abduction 4- Good- External Rotation 3+ Fair+ Internal Rotation 5 Normal Left Flexion (L2) 4- Good- Extension (S1) 3+ Fair+ Abduction 4- Good- External Rotation 3+ Fair+ Internal Rotation 5 Normal Knee Strength Knee Manual Muscle Testing Right Flexion (S2) 5 Normal Extension (L3) 5 Normal Left Flexion (S2) 5 Normal Extension (L3) 5 Normal Ankle/Foot Strength Ankle and Foot Manual Muscle Testing Right Dorsiflexion (L4) 5 Normal Plantarflexion (S1) 5 Normal Inversion 4+ Good+ Eversion (S1) 5 Normal Left Dorsiflexion (L4) 5 Normal Plantarflexion (S1) 5 Normal Inversion 4+ Good+ Eversion (S1) 5 Normal Comments PF tested seated B PT-OP-T Assessment and Plan Start: 11/03/22 13:37 Freq: Status: Active Protocol: Document 01/20/23 08:29 [facility] (Rec: 01/20/23 09:11 [facility] [id number]) Physical Therapy Assessment Goals NDI Impairment 16/50 Ehs Teacher Goal (LTG) Pt will improve NDI score to no greater than 8/50 to show improved functional ability LTG Duration 02/17 pain Short Term Goal (STG) Pt will report worst pain in neck for a week to be no greater than 4/10. 12/31/22: GOAL MET: occasionally gets a shocking pain when turns head lately 2-310. Pt report stopping doing things that irritate it: bending over and looking down to much. Has started holding book up in front read and neck posture with activiteis in front him. STG Duration GOAL MET 12/31/22 Ehs Teacher Goal (LTG) Pt will report worst pain in neck for a week to be no greater than 1/10. LTG Duration 02/17 Strength Short Term Goal (STG) Pt will be indep w/HEP 12/31/22: added open book, wall posture to HEP. STG Duration 12/29/22 Ehs Teacher Goal (LTG) Pt will score at least 4+/5 on all LE strength to imrpove LE stability and improve balance LTG Duration discontinue d/t ortho MD wanting to discontinue LE strength til surgery ROM Short Term Goal (STG) Pt will improve rotation B cervically to at least 45 deg. STG Duration achieved 01/04 Care Home Goal (LTG) Pt will report min pain w/all ROM in cervical region. 01/20-improving LTG Duration 02/17/23 SLS Ehs Teacher Goal (LTG) Pt will be able to do SLS for 15 sec B. LTG Duration discontinue goals d/t L knee pain and ortho MD told him to hold on LE ex Assessment Summary Assessment Discontinue hands and knee exercises d/t pt concern re: knee pain as it hurts his knees a lot to be on his knees . He is amking good progess w/ PT at this time and is showing improved range and dec pain. Physical Therapy Plan Frequency and Duration Frequency of Treatment 2x/Week Duration of treatment (weeks) 4 Plan of Care Start Date 01/20/23 Plan of Care End Date 02/17/23 Therapeutic Interventions Therapeutic Interventions Aquatic Therapy,Balance Training,Gait Training,Home Exercise Program,Joint Mobilizations,Manual Therapy, Neuromuscular Re-education, Orthotic/Prosthetic Management ,Patient/Caregiver Education, Self-Care/Home Management,Soft Tissue Mobilization,Taping, Therapeutic Activities, Therapeutic Exercises, Vestibular Rehabilitation Modalities Cold Pack/Ice Massage,Electric Stimulation,Hot Packs, Infrared Therapy,Ultrasound Next Visit Focus/Plan Next Note Type Treatment Note Next Visit Plan POC: Work on manual to improve ROM and cont to work on exercises for neck stability
--- NOTE | 2023-01-20 09:47 | PT.OPPOC ---
Physical, Occupational & Speech Therapy At [facility] Current Diagnoses Cervicalgia (01/20/23) Other abnormalities of gait and mobility (01/20/23) Abnormal posture (01/20/23) Weakness (01/20/23) Arthrodesis status (01/20/23) Visit Care Team Role Provider Type Tripp Spears MD Attending Provider Physician Family Provider Primary Care Provider Referring Provider Specialty: Internal Medicine Address: [address] [place] [address], [address], [address] Email: [email or web address] Plan Of Care PT-OP-T Assessment and Plan Start: 11/03/22 13:37 Freq: Status: Active Protocol: Document 01/20/23 08:29 [facility] (Rec: 01/20/23 09:11 [facility] [id number]) Physical Therapy Assessment Goals NDI Impairment 16/50 [facility] Goal (LTG) Pt will improve NDI score to no greater than 8/50 to show improved functional ability LTG Duration 02/17 pain Short Term Goal (STG) Pt will report worst pain in neck for a week to be no greater than 4/10. 12/31/22: GOAL MET: occasionally gets a shocking pain when turns head lately 2-3/10. Pt report stopping doing things that irritate it: bending over and looking down to much. Has started holding book up in front read and neck posture with activiteis in front him. STG Duration GOAL MET 12/31/22 [facility]iary Goal (LTG) Pt will report worst pain in neck for a week to be no greater than 1/10. LTG Duration 02/17 Strength Short Term Goal (STG) Pt will be indep w/HEP 12/31/22: added open book, wall posture to HEP. STG Duration 12/29/22 [facility]iary Goal (LTG) Pt will score at least 4+/5 on all LE strength to imrpove LE stability and improve balance LTG Duration discontinue d/t ortho MD wanting to discontinue LE strength til surgery ROM Short Term Goal (STG) Pt will improve rotation B cervically to at least 45 deg. STG Duration achieved 01/04 [facility] Goal (LTG) Pt will report min pain w/all ROM in cervical region. 01/20-improving LTG Duration 02/17/23 SLS [facility]iary Goal (LTG) Pt will be able to do SLS for 15 sec B. LTG Duration discontinue goals d/t L knee pain and ortho MD told him to hold on LE ex Assessment Summary Assessment Discontinue hands and knee exercises d/t pt concern re: knee pain as it hurts his knees a lot to be on his knees . He is amking good progess w/ PT at this time and is showing improved range and dec pain. Physical Therapy Plan Frequency and Duration Frequency of Treatment 2x/Week Duration of treatment (weeks) 4 Plan of Care Start Date 01/20/23 Plan of Care End Date 02/17/23 Therapeutic Interventions Therapeutic Interventions Aquatic Therapy,Balance Training,Gait Training,Home Exercise Program,Joint Mobilizations,Manual Therapy, Neuromuscular Re-education, Orthotic/Prosthetic Management ,Patient/Caregiver Education, Self-Care/Home Management,Soft Tissue Mobilization,Taping, Therapeutic Activities, Therapeutic Exercises, Vestibular Rehabilitation Modalities Cold Pack/Ice Massage,Electric Stimulation,Hot Packs, Infrared Therapy,Ultrasound Next Visit Focus/Plan Next Note Type Treatment Note Next Visit Plan POC: Work on manual to improve ROM and cont to work on exercises for neck stability Plan of Care Dates Plan of Care Start Date 01/20/23 Plan of Care End Date 02/17/23 Electronically Signed by: Shelly Bejarano, PT 01/20/23 0947 If you are in agreement with this Plan of Care, please return a signed and dated copy. I have reviewed this Plan of Care and certify that the skilled therapy services above are required to meet the patient?s needs. Physician Signature Date Printed Name and Credentials Clinical Instructor Signature Printed Name and Credentials
--- NOTE | 2023-01-24 09:45 | PT.OTN ---
Current Diagnoses Cervicalgia (01/24/23) Other abnormalities of gait and mobility (01/24/23) Abnormal posture (01/24/23) Weakness (01/24/23) Arthrodesis status (01/24/23) Physical Therapy Treatment Note PT-OP-A Visit Information Start: 11/03/22 13:37 Freq: Status: Active Protocol: Document 01/24/23 09:03 SP (Rec: 01/24/23 09:49 SP [id number]) Out-Patient Physical Therapy Visit Information Visit Information Visit Type Treatment Note Visit Note 11/09 after PN Visit Start Time 09:03 Visit Stop Time 09:45 Total Visit Minutes 42 Visit Number 17 Number of NOZZLE AND SLEEVE WORKER Visits 1 PT-OP-B Current Condition Start: 11/03/22 13:37 Freq: Status: Active Protocol: Document 11/08/22 10:35 [facility] (Rec: 11/08/22 11:30 [facility] [id number]) Current Condition History of Current Condition Onset Date neck pain about 12 years ago; balance 3 years ago or more Current Complaints Neck pain/head pain and balance issues History of Current Condition Pt reportsbroke his neck in [place] is an attack but was pushed out of the hospital too quickly before Xrays and was off for 6 days. 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 He was working [employer] at the same time. Pt had C3-6 fusion about 11 years ago. about 7 months later, he lost some of the muscle in post shoulders. Pt reports head pain on R side of head and R arm has some problems sometimes. 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 he has been doing balance exercises from [employer]. Pt has issue w/clavicle pressing on trachea and some things cause coughing. 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 He has managed it okay so far.He can feel the pressure when rolling in bed. B RC issues. Pt has hx of L HS tear about 9 years ago Prior Treatments and Tests Carotid Doppler: IMPRESSION: No hemodynamically significant stenosis is seen. No significant change from the prior. Massage therapy: helps Brain MRI: IMPRESSION: BRAIN MRI: 1. No infarct or other acute intracranial abnormality. 2. Mild cerebral volume loss and mild chronic white matter small vessel ischemic changes. BRAIN MR ANGIOGRAM: 1. No high-grade stenosis or occlusion of the central intracranial arteries. NECK MR ANGIOGRAM: 1. No high-grade stenosis or occlusion of the head and neck arteries. The carotid bulbs appear widely patent. Cervical CT: Bones: No fractures or dislocations. There is mild, approximately 3 mm of C2-C3, 2 mm of C6-C7 and 2 mm of C7-T1 degenerative anterolisthesis. Visualized superior ribs are intact. Postsurgical changes compatible with C4-C6 ACDF are noted. The orthopedic hardware is intact. No lucencies are identified the bone hardware interface. Spine degenerative disc disease and facet arthropathy. No significant central canal narrowing. Severe bilateral C3-C4, C4-C5 and C6-C7 neural foraminal narrowing. Severe left C5-C6 neural foraminal narrowing. Mild osteophytic degenerative changes are noted in the sternoclavicular joints bilaterally. No definite sternoclavicular joint effusions identified. No osseous erosive changes at the sternoclavicular joints. There is widening of the right acromioclavicular joint which could be due to prior acromioplasty; please correlate with surgical history. Soft tissues: Prevertebral soft tissues are normal in thickness. No paravertebral hematomas. No apical pneumothoraces. No soft tissue inflammation or fluid collections noted adjacent to the sternoclavicular joints. Treatment Goals Patient/Caregiver Goals improve strength & balance PT-OP-C Subjective Start: 11/03/22 13:37 Freq: Status: Active Protocol: Document 01/24/23 09:03 SP (Rec: 01/24/23 09:49 SP [id number]) OP-PT Subjective Patient Comments Patient Comments Pt reports went [place] to mountains and cut down trees with help of older youth. PT-OP-D Balance Start: 11/03/22 13:37 Freq: Status: Active Protocol: Document 11/08/22 10:35 [facility] (Rec: 11/08/22 11:30 [facility] [id number]) Balance Tests Single Limb Standing Single Limb- Right 9 sec Single Limb- Left 5 sec PT-OP-E Functional Tests Start: 11/03/22 13:37 Freq: Status: Active Protocol: Document 11/08/22 10:35 [facility] (Rec: 11/08/22 11:30 [facility] [id number]) Functional Tests Dynamic Gait Index (DGI) Score 22 Functional Gait Assessment Score 2430 PT-OP-F Manual Assessment Start: 11/03/22 13:37 Freq: Status: Active Protocol: Document 11/08/22 10:35 [facility] (Rec: 11/08/22 11:30 [facility] [id number]) Manual Assessments Soft Tissue Assessment Soft Tissue Mobility Assessment R>L cervical and cranial tightness PT-OP-G Mobility & Gait Start: 11/03/22 13:37 Freq: Status: Active Protocol: Document 11/08/22 10:35 [facility] (Rec: 11/08/22 11:30 [facility] [id number]) OP Gait Assessment Comments Gait Comments dec push off PT-OP-J Posture/Palpation/Skin Start: 11/03/22 13:37 Freq: Status: Active Protocol: Document 11/08/22 10:35 [facility] (Rec: 11/08/22 11:30 [facility] [id number]) Posture Evaluation Comments Posture Comments fwd head and neck & inc kyphosis PT-OP-K Range of Motion Start: 11/03/22 13:37 Freq: Status: Active Protocol: Document 01/20/23 08:29 [facility] (Rec: 01/20/23 09:11 [facility] [id number]) Cervical Spine Range of Motion Cervical Spine Active Degrees Flexion 54 Extension 40 Rotation Left 54 Rotation Right 36 Lateral Flexion Left 20 Lateral Flexion Right 21 ROM Limitations Pain Comments stiff flex, some pain ext & to R PT-OP-L Special Tests Start: 11/03/22 13:37 Freq: Status: Active Protocol: Document 11/08/22 10:35 [facility] (Rec: 11/08/22 11:30 [facility] [id number]) Special Tests Cervical Spine Special Tests Spurling's Test Test Results neg Vertebral Artery Test Results neg Alar Ligament Test Results neg Neural Special Tests- Upper Body Median Nerve Tension Test Results positive B Ulnar Nerve Tension Test Results neg B Radial Nerve Tension Test Results neg B PT-OP-M Strength Start: 11/03/22 13:37 Freq: Status: Active Protocol: Document 11/08/22 10:35 [facility] (Rec: 11/08/22 11:30 [facility] [id number]) Shoulder Strength Shoulder Manual Muscle Testing Right Flexion 3+ Fair+ Extension 4 Good Abduction (C5) 3+ Fair+ External Rotation 3+ Fair+ Internal Rotation 4+ Good+ Left Flexion 3+ Fair+ Extension 4 Good Abduction (C5) 3+ Fair+ External Rotation 3 Fair Internal Rotation 4+ Good+ Hip Strength Hip Manual Muscle Testing Right Flexion (L2) 4- Good- Extension (S1) 3+ Fair+ Abduction 4- Good- External Rotation 3+ Fair+ Internal Rotation 5 Normal Left Flexion (L2) 4- Good- Extension (S1) 3+ Fair+ Abduction 4- Good- External Rotation 3+ Fair+ Internal Rotation 5 Normal Knee Strength Knee Manual Muscle Testing Right Flexion (S2) 5 Normal Extension (L3) 5 Normal Left Flexion (S2) 5 Normal Extension (L3) 5 Normal Ankle/Foot Strength Ankle and Foot Manual Muscle Testing Right Dorsiflexion (L4) 5 Normal Plantarflexion (S1) 5 Normal Inversion 4+ Good+ Eversion (S1) 5 Normal Left Dorsiflexion (L4) 5 Normal Plantarflexion (S1) 5 Normal Inversion 4+ Good+ Eversion (S1) 5 Normal Comments PF tested seated B PT-OP-Q Treatments Start: 11/03/22 13:37 Freq: Status: Active Protocol: Document 01/24/23 09:03 SP (Rec: 01/24/23 09:49 SP [id number]) Cardio Equipment Upper Body Ergometer (UBE) Duration (Minutes) 6 RPM 100 Seat Position 12 Height 3 Other 1 min f/b Therapeutic Exercises Supine Exercises axial elonation Supine Exercise Name self resisted Reps/Minutes 5 sec x5 Sidelying Exercises open book Side bilateral Reps/Minutes 5 Comments good form Sitting Exercises cat camel Sitting Exercise Name modified seated Reps/Minutes x5 reps Comments cues for proper form scap and CS Axial Elongation Side bilateral Equipment Used lvl 1 band Reps/Minutes 3 SH x 8 stretches Sitting Exercise Name SB, LS Side bilateral Reps/Minutes 30 sec ea Comments good feedback stretch SL/ rotate R more limited Standing Exercises Ys off wall Standing Exercise Name cues for posture: glides, no lift off wall Side bilateral Reps/Minutes x8 reps, 5 SH Comments cued chin nod CS neutral shld ext/ CS rotation nods Standing Exercise Name isometric ext Side bilateral Resistance TB #2>#3 Reps/Minutes 8 reps, nod x5 reps each side Comments good feedback response wall posture Standing Exercise Name reviewed HEP- straight arms at side ER Equipment Used back to wall Reps/Minutes 30 Sec Comments cued TA, CS chin nod neutral, back on wall, cues to keep feet away from wa Other Exercises quadruped Other Exercise Name declined hurts knees Manual Therapy Treatment Soft Tissue Mobilization SOR Mobilization Type Sustained Pressure Intensity/Depth Moderate Body Position Hooklying UT/LS Body Location R>L Mobilization Type Myofascial Release,Strumming Intensity/Depth Moderate Body Position Hooklying SCM/scalenes Body Location B Mobilization Type Myofascial Release,Rolling Intensity/Depth Moderate Body Position Supine paraspinals Body Location L CS Mobilization Type Rolling,Strumming Intensity/Depth Moderate Body Position Supine PT-OP-R Modalities Start: 11/03/22 13:37 Freq: Status: Active Protocol: Document 01/20/23 08:29 [facility] (Rec: 01/20/23 09:11 [facility] [id number]) Hot Pack/Cold Pack Treatment Hot Pack Location cervical Patient Position Hooklying Treatment Duration (minutes) 10 PT-OP-T Assessment and Plan Start: 11/03/22 13:37 Freq: Status: Active Protocol: Document 01/24/23 09:03 SP (Rec: 01/24/23 09:49 SP [id number]) Physical Therapy Assessment Goals NDI Impairment 16/50 Jail Goal (LTG) Pt will improve NDI score to no greater than 8/50 to show improved functional ability LTG Duration 02/17 pain Short Term Goal (STG) Pt will report worst pain in neck for a week to be no greater than 4/10. 12/31/22: GOAL MET: occasionally gets a shocking pain when turns head lately 2-3/10. Pt report stopping doing things that irritate it: bending over and looking down to much. Has started holding book up in front read and neck posture with activiteis in front him. STG Duration GOAL MET 12/31/22 Jail Goal (LTG) Pt will report worst pain in neck for a week to be no greater than 1/10. LTG Duration 02/17 Strength Short Term Goal (STG) Pt will be indep w/HEP 12/31/22: added open book, wall posture to HEP. STG Duration 12/29/22 Jail Goal (LTG) Pt will score at least 4+/5 on all LE strength to imrpove LE stability and improve balance LTG Duration discontinue d/t ortho MD wanting to discontinue LE strength til surgery ROM Short Term Goal (STG) Pt will improve rotation B cervically to at least 45 deg. STG Duration achieved 01/04 Co Op Goal (LTG) Pt will report min pain w/all ROM in cervical region. 01/20-improving LTG Duration 02/17/23 SLS Co Op Goal (LTG) Pt will be able to do SLS for 15 sec B. LTG Duration discontinue goals d/t L knee pain and ortho MD told him to hold on LE ex Assessment Summary Assessment Pt improved no UT recruitment with cues during HEP. Reports decreased stiffness end tx. Physical Therapy Plan Frequency and Duration Frequency of Treatment 2x/Week Duration of treatment (weeks) 4 Plan of Care Start Date 01/20/23 Plan of Care End Date 02/17/23 Therapeutic Interventions Therapeutic Interventions Aquatic Therapy,Balance Training,Gait Training,Home Exercise Program,Joint Mobilizations,Manual Therapy, Neuromuscular Re-education, Orthotic/Prosthetic Management ,Patient/Caregiver Education, Self-Care/Home Management,Soft Tissue Mobilization,Taping, Therapeutic Activities, Therapeutic Exercises, Vestibular Rehabilitation Modalities Cold Pack/Ice Massage,Electric Stimulation,Hot Packs, Infrared Therapy,Ultrasound Next Visit Focus/Plan Next Note Type Treatment Note Next Visit Plan POC: Work on manual to improve ROM and cont to work on exercises for neck stability
--- NOTE | 2023-01-27 09:48 | PT.OTN ---
Current Diagnoses Cervicalgia (01/27/23) Other abnormalities of gait and mobility (01/27/23) Abnormal posture (01/27/23) Weakness (01/27/23) Arthrodesis status (01/27/23) Physical Therapy Treatment Note PT-OP-A Visit Information Start: 11/03/22 13:37 Freq: Status: Active Protocol: Document 01/27/23 09:05 [facility] (Rec: 01/27/23 09:48 [facility] [id number]) Out-Patient Physical Therapy Visit Information Visit Information Visit Type Treatment Note Visit Start Time 09:14 Visit Stop Time 09:45 Total Visit Minutes 31 Visit Number 18 Number of INSPECTOR AND SORTER Visits 0 PT-OP-B Current Condition Start: 11/03/22 13:37 Freq: Status: Active Protocol: Document 11/08/22 10:35 [facility] (Rec: 11/08/22 11:30 [facility] [id number]) Current Condition History of Current Condition Onset Date neck pain about 12 years ago; balance 3 years ago or more Current Complaints Neck pain/head pain and balance issues History of Current Condition Pt reportsbroke his neck in [place] is an attack but was pushed out of the hospital too quickly before Xrays and was off for 6 days. 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 He was working [employer] at the same time. Pt had C3-6 fusion about 11 years ago. about 7 months later, he lost some of the muscle in post shoulders. Pt reports head pain on R side of head and R arm has some problems sometimes. 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 he has been doing balance exercises from [employer]. Pt has issue w/clavicle pressing on trachea and some things cause coughing. 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 He has managed it okay so far.He can feel the pressure when rolling in bed. B RC issues. Pt has hx of L HS tear about 9 years ago Prior Treatments and Tests Carotid Doppler: IMPRESSION: No hemodynamically significant stenosis is seen. No significant change from the prior. Massage therapy: helps Brain MRI: IMPRESSION: BRAIN MRI: 1. No infarct or other acute intracranial abnormality. 2. Mild cerebral volume loss and mild chronic white matter small vessel ischemic changes. BRAIN MR ANGIOGRAM: 1. No high-grade stenosis or occlusion of the central intracranial arteries. NECK MR ANGIOGRAM: 1. No high-grade stenosis or occlusion of the head and neck arteries. The carotid bulbs appear widely patent. Cervical CT: Bones: No fractures or dislocations. There is mild, approximately 3 mm of C2-C3, 2 mm of C6-C7 and 2 mm of C7-T1 degenerative anterolisthesis. Visualized superior ribs are intact. Postsurgical changes compatible with C4-C6 ACDF are noted. The orthopedic hardware is intact. No lucencies are identified the bone hardware interface. Spine degenerative disc disease and facet arthropathy. No significant central canal narrowing. Severe bilateral C3-C4, C4-C5 and C6-C7 neural foraminal narrowing. Severe left C5-C6 neural foraminal narrowing. Mild osteophytic degenerative changes are noted in the sternoclavicular joints bilaterally. No definite sternoclavicular joint effusions identified. No osseous erosive changes at the sternoclavicular joints. There is widening of the right acromioclavicular joint which could be due to prior acromioplasty; please correlate with surgical history. Soft tissues: Prevertebral soft tissues are normal in thickness. No paravertebral hematomas. No apical pneumothoraces. No soft tissue inflammation or fluid collections noted adjacent to the sternoclavicular joints. Treatment Goals Patient/Caregiver Goals improve strength & balance PT-OP-C Subjective Start: 11/03/22 13:37 Freq: Status: Active Protocol: Document 01/24/23 09:03 SP (Rec: 01/24/23 09:49 SP [id number]) OP-PT Subjective Patient Comments Patient Comments Pt reports [place] and [place] trees with help of older youth. PT-OP-D Balance Start: 11/03/22 13:37 Freq: Status: Active Protocol: Document 11/08/22 10:35 [facility] (Rec: 11/08/22 11:30 [facility] [id number]) Balance Tests Single Limb Standing Single Limb- Right 9 sec Single Limb- Left 5 sec PT-OP-E Functional Tests Start: 11/03/22 13:37 Freq: Status: Active Protocol: Document 11/08/22 10:35 [facility] (Rec: 11/08/22 11:30 [facility] [id number]) Functional Tests Dynamic Gait Index (DGI) Score 22 Functional Gait Assessment Score PT-OP-F Manual Assessment Start: 11/03/22 13:37 Freq: Status: Active Protocol: Document 11/08/22 10:35 [facility] (Rec: 11/08/22 11:30 [facility] [id number]) Manual Assessments Soft Tissue Assessment Soft Tissue Mobility Assessment R>L cervical and cranial tightness PT-OP-G Mobility & Gait Start: 11/03/22 13:37 Freq: Status: Active Protocol: Document 11/08/22 10:35 [facility] (Rec: 11/08/22 11:30 [facility] [id number]) OP Gait Assessment Comments Gait Comments dec push off PT-OP-J Posture/Palpation/Skin Start: 11/03/22 13:37 Freq: Status: Active Protocol: Document 11/08/22 10:35 [facility] (Rec: 11/08/22 11:30 [facility] [id number]) Posture Evaluation Comments Posture Comments fwd head and neck & inc kyphosis PT-OP-K Range of Motion Start: 11/03/22 13:37 Freq: Status: Active Protocol: Document 01/20/23 08:29 [facility] (Rec: 01/20/23 09:11 [facility] [id number]) Cervical Spine Range of Motion Cervical Spine Active Degrees Flexion 54 Extension 40 Rotation Left 54 Rotation Right 36 Lateral Flexion Left 20 Lateral Flexion Right 21 ROM Limitations Pain Comments stiff flex, some pain ext & to R PT-OP-L Special Tests Start: 11/03/22 13:37 Freq: Status: Active Protocol: Document 11/08/22 10:35 [facility] (Rec: 11/08/22 11:30 [facility] [id number]) Special Tests Cervical Spine Special Tests Spurling's Test Test Results neg Vertebral Artery Test Results neg Alar Ligament Test Results neg Neural Special Tests- Upper Body Median Nerve Tension Test Results positive B Ulnar Nerve Tension Test Results neg B Radial Nerve Tension Test Results neg B PT-OP-M Strength Start: 11/03/22 13:37 Freq: Status: Active Protocol: Document 11/08/22 10:35 [facility] (Rec: 11/08/22 11:30 [facility] [id number]) Shoulder Strength Shoulder Manual Muscle Testing Right Flexion 3+ Fair+ Extension 4 Good Abduction (C5) 3+ Fair+ External Rotation 3+ Fair+ Internal Rotation 4+ Good+ Left Flexion 3+ Fair+ Extension 4 Good Abduction (C5) 3+ Fair+ External Rotation 3 Fair Internal Rotation 4+ Good+ Hip Strength Hip Manual Muscle Testing Right Flexion (L2) 4- Good- Extension (S1) 3+ Fair+ Abduction 4- Good- External Rotation 3+ Fair+ Internal Rotation 5 Normal Left Flexion (L2) 4- Good- Extension (S1) 3+ Fair+ Abduction 4- Good- External Rotation 3+ Fair+ Internal Rotation 5 Normal Knee Strength Knee Manual Muscle Testing Right Flexion (S2) 5 Normal Extension (L3) 5 Normal Left Flexion (S2) 5 Normal Extension (L3) 5 Normal Ankle/Foot Strength Ankle and Foot Manual Muscle Testing Right Dorsiflexion (L4) 5 Normal Plantarflexion (S1) 5 Normal Inversion 4+ Good+ Eversion (S1) 5 Normal Left Dorsiflexion (L4) 5 Normal Plantarflexion (S1) 5 Normal Inversion 4+ Good+ Eversion (S1) 5 Normal Comments PF tested seated B PT-OP-Q Treatments Start: 11/03/22 13:37 Freq: Status: Active Protocol: Document 01/27/23 09:05 [facility] (Rec: 01/27/23 09:48 [facility] [id number]) Manual Therapy Treatment Soft Tissue Mobilization UT/LS Body Location R>L Mobilization Type Myofascial Release,Strumming Intensity/Depth Moderate Body Position Sitting Comments FM SCM/scalenes Body Location R>L Mobilization Type Myofascial Release,Rolling Intensity/Depth Moderate Body Position Supine paraspinals Body Location thoracic upper Mobilization Type Rolling,Strumming Intensity/Depth Moderate Body Position Sitting Joint Mobilizations thoracic Comments T1-3 PA T1-3 L UPA Tt-5 R UPA transverse L T1-4 FM PT-OP-R Modalities Start: 11/03/22 13:37 Freq: Status: Active Protocol: Document 01/20/23 08:29 [facility] (Rec: 01/20/23 09:11 [facility] [id number]) Hot Pack/Cold Pack Treatment Hot Pack Location cervical Patient Position Hooklying Treatment Duration (minutes) 10 PT-OP-T Assessment and Plan Start: 11/03/22 13:37 Freq: Status: Active Protocol: Document 01/27/23 09:05 [facility] (Rec: 01/27/23 09:48 [facility] [id number]) Physical Therapy Assessment Goals NDI Impairment 16/50 [employer] Goal (LTG) Pt will improve NDI score to no greater than 8/50 to show improved functional ability LTG Duration 02/17 pain Short Term Goal (STG) Pt will report worst pain in neck for a week to be no greater than 4/10. 12/31/22: GOAL MET: occasionally gets a shocking pain when turns head lately 2-3/10. Pt report stopping doing things that irritate it: bending over and looking down to much. Has started holding book up in front read and neck posture with activiteis in front him. STG Duration GOAL MET 12/31/22 [employer]ia Table Attendant Goal (LTG) Pt will report worst pain in neck for a week to be no greater than 1/10. LTG Duration 02/17 Strength Short Term Goal (STG) Pt will be indep w/HEP 12/31/22: added open book, wall posture to HEP. STG Duration 12/29/22 [employer]ia Table Attendant Goal (LTG) Pt will score at least 4+/5 on all LE strength to imrpove LE stability and improve balance LTG Duration discontinue d/t ortho MD wanting to discontinue LE strength til surgery ROM Short Term Goal (STG) Pt will improve rotation B cervically to at least 45 deg. STG Duration achieved 01/04 Longterm Goal (LTG) Pt will report min pain w/all ROM in cervical region. 01/20-improving LTG Duration 02/17/23 SLS [employer]ia Table Attendant Goal (LTG) Pt will be able to do SLS for 15 sec B. LTG Duration discontinue goals d/t L knee pain and ortho MD told him to hold on LE ex Assessment Summary Assessment Pt had improved rotation and reported relief w/manual. He also was able to sit up straighter and get scap more into retraction w/manual. Physical Therapy Plan Frequency and Duration Frequency of Treatment 2x/Week Duration of treatment (weeks) 4 Plan of Care Start Date 01/20/23 Plan of Care End Date 02/17/23 Next Visit Focus/Plan Next Note Type Treatment Note Next Visit Plan dc on 02/14 visit POC: Work on manual to improve ROM and cont to work on exercises for neck stability
--- NOTE | 2023-02-22 13:21 | PT.OPDS ---
Current Diagnoses Cervicalgia (01/27/23) Other abnormalities of gait and mobility (01/27/23) Abnormal posture (01/27/23) Weakness (01/27/23) Arthrodesis status (01/27/23) Visit Care Team Role Provider Type Tripp Spears MD Attending Provider Physician Family Provider Primary Care Provider Referring Provider Specialty: Internal Medicine Address: [address] [place] [address], [address], [facility] Email: [email or web address] Number Visit Number [id number] Discharge Summary PT-OP-B Current Condition Start: 11/03/22 13:37 Freq: Status: Active Protocol: Document 11/08/22 10:35 [facility] (Rec: 11/08/22 11:30 [facility] [id number]) Current Condition History of Current Condition Onset Date neck pain about 12 years ago; balance 3 years ago or more Current Complaints Neck pain/head pain and balance issues History of Current Condition Pt reportsbroke his [place] in [place] is an attack but was pushed out of the hospital too quickly before Xrays and was off for 6 days. 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 He was working [employer] at the same time. Pt had C3-6 fusion about 11 years ago. about 7 months later, he lost some of the muscle in post shoulders. Pt reports head pain on R side of head and R arm has some problems sometimes. 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 he has been doing balance exercises from [employer]. Pt has issue w/clavicle pressing on trachea and some things cause coughing. He started [employer]ENT[employer]ATION WORK[employer] a while ago but stopped unsure why. He has managed it okay so far.He can feel the pressure when rolling in bed. B RC issues. Pt has hx of L HS tear about 9 years ago Prior Treatments and Tests Carotid Doppler: IMPRESSION: No hemodynamically significant stenosis is seen. No significant change from the prior. Massage therapy: helps Brain MRI: IMPRESSION: BRAIN MRI: 1. No infarct or other acute intracranial abnormality. 2. Mild cerebral volume loss and mild chronic white matter small vessel ischemic changes. BRAIN MR ANGIOGRAM: 1. No high-grade stenosis or occlusion of the central intracranial arteries. NECK MR ANGIOGRAM: 1. No high-grade stenosis or occlusion of the head and neck arteries. The carotid bulbs appear widely patent. Cervical CT: Bones: No fractures or dislocations. There is mild, approximately 3 mm of C2-C3, 2 mm of C6-C7 and 2 mm of C7-T1 degenerative anterolisthesis. Visualized superior ribs are intact. Postsurgical changes compatible with C4-C6 ACDF are noted. The orthopedic hardware is intact. No lucencies are identified the bone hardware interface. Spine degenerative disc disease and facet arthropathy. No significant central canal narrowing. Severe bilateral C3-C4, C4-C5 and C6-C7 neural foraminal narrowing. Severe left C5-C6 neural foraminal narrowing. Mild osteophytic degenerative changes are noted in the sternoclavicular joints bilaterally. No definite sternoclavicular joint effusions identified. No osseous erosive changes at the sternoclavicular joints. There is widening of the right acromioclavicular joint which could be due to prior acromioplasty; please correlate with surgical history. Soft tissues: Prevertebral soft tissues are normal in thickness. No paravertebral hematomas. No apical pneumothoraces. No soft tissue inflammation or fluid collections noted adjacent to the sternoclavicular joints. 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 PT-OP-D Balance Start: 11/03/22 13:37 Freq: Status: Active Protocol: Document 11/08/22 10:35 [facility] (Rec: 11/08/22 11:30 [facility] [id number]) Balance Tests Single Limb Standing Single Limb- Right 9 sec Single Limb- Left 5 sec PT-OP-E Functional Tests Start: 11/03/22 13:37 Freq: Status: Active Protocol: Document 11/08/22 10:35 [facility] (Rec: 11/08/22 11:30 [facility] [id number]) Functional Tests Dynamic Gait Index (DGI) Score 22 Functional Gait Assessment Score 24/30 PT-OP-F Manual Assessment Start: 11/03/22 13:37 Freq: Status: Active Protocol: Document 11/08/22 10:35 [facility] (Rec: 11/08/22 11:30 [facility] [id number]) Manual Assessments Soft Tissue Assessment Soft Tissue Mobility Assessment R>L cervical and cranial tightness PT-OP-G Mobility & Gait Start: 11/03/22 13:37 Freq: Status: Active Protocol: Document 11/08/22 10:35 [facility] (Rec: 11/08/22 11:30 [facility] [id number]) OP Gait Assessment Comments Gait Comments dec push off PT-OP-J Posture/Palpation/Skin Start: 11/03/22 13:37 Freq: Status: Active Protocol: Document 11/08/22 10:35 [facility] (Rec: 11/08/22 11:30 [facility] [id number]) Posture Evaluation Comments Posture Comments fwd head and neck & inc kyphosis PT-OP-K Range of Motion Start: 11/03/22 13:37 Freq: Status: Active Protocol: Document 01/20/23 08:29 [facility] (Rec: 01/20/23 09:11 [facility] [id number]) Cervical Spine Range of Motion Cervical Spine Active Degrees Flexion 54 Extension 40 Rotation Left 54 Rotation Right 36 Lateral Flexion Left 20 Lateral Flexion Right 21 ROM Limitations Pain Comments stiff flex, some pain ext & to R PT-OP-L Special Tests Start: 11/03/22 13:37 Freq: Status: Active Protocol: Document 11/08/22 10:35 [facility] (Rec: 11/08/22 11:30 [facility] [id number]) Special Tests Cervical Spine Special Tests Spurling's Test Test Results neg Vertebral Artery Test Results neg Alar Ligament Test Results neg Neural Special Tests- Upper Body Median Nerve Tension Test Results positive B Ulnar Nerve Tension Test Results neg B Radial Nerve Tension Test Results neg B PT-OP-M Strength Start: 11/03/22 13:37 Freq: Status: Active Protocol: Document 11/08/22 10:35 [facility] (Rec: 11/08/22 11:30 [facility] [id number]) Shoulder Strength Shoulder Manual Muscle Testing Right Flexion 3+ Fair+ Extension 4 Good Abduction (C5) 3+ Fair+ External Rotation 3+ Fair+ Internal Rotation 4+ Good+ Left Flexion 3+ Fair+ Extension 4 Good Abduction (C5) 3+ Fair+ External Rotation 3 Fair Internal Rotation 4+ Good+ Hip Strength Hip Manual Muscle Testing Right Flexion (L2) 4- Good- Extension (S1) 3+ Fair+ Abduction 4- Good- External Rotation 3+ Fair+ Internal Rotation 5 Normal Left Flexion (L2) 4- Good- Extension (S1) 3+ Fair+ Abduction 4- Good- External Rotation 3+ Fair+ Internal Rotation 5 Normal Knee Strength Knee Manual Muscle Testing Right Flexion (S2) 5 Normal Extension (L3) 5 Normal Left Flexion (S2) 5 Normal Extension (L3) 5 Normal Ankle/Foot Strength Ankle and Foot Manual Muscle Testing Right Dorsiflexion (L4) 5 Normal Plantarflexion (S1) 5 Normal Inversion 4+ Good+ Eversion (S1) 5 Normal Left Dorsiflexion (L4) 5 Normal Plantarflexion (S1) 5 Normal Inversion 4+ Good+ Eversion (S1) 5 Normal Comments PF tested seated B PT-OP-T Assessment and Plan Start: 11/03/22 13:37 Freq: Status: Active Protocol: Document 02/22/23 13:20 [facility] (Rec: 02/22/23 13:21 [facility] [id number]) Physical Therapy Assessment Goals NDI Impairment 16/50 Care Home Goal (LTG) Pt will improve NDI score to no greater than 8/50 to show improved functional ability LTG Duration 02/17 pain Short Term Goal (STG) Pt will report worst pain in neck for a week to be no greater than 4/10. 12/31/22: GOAL MET: occasionally gets a shocking pain when turns head lately 2-3/10. Pt report stopping doing things that irritate it: bending over and looking down to much. Has started holding book up in front read and neck posture with activiteis in front him. STG Duration GOAL MET 12/31/22 Care Home Goal (LTG) Pt will report worst pain in neck for a week to be no greater than 1/10. LTG Duration 02/17 Strength Short Term Goal (STG) Pt will be indep w/HEP 12/31/22: added open book, wall posture to HEP. STG Duration 12/29/22 Care Home Goal (LTG) Pt will score at least 4+/5 on all LE strength to imrpove LE stability and improve balance LTG Duration discontinue d/t ortho MD wanting to discontinue LE strength til surgery ROM Short Term Goal (STG) Pt will improve rotation B cervically to at least 45 deg. STG Duration achieved 01/04 Care Home Goal (LTG) Pt will report min pain w/all ROM in cervical region. 01/20-improving LTG Duration 02/17/23 SLS School Clerk Goal (LTG) Pt will be able to do SLS for 15 sec B. LTG Duration discontinue goals d/t L knee pain and ortho MD told him to hold on LE ex Assessment Summary Assessment Pt was to DC at the end of this month w/last appt but got sick w/COVID and was out for a few weeks then out of town. POC is now so pt is DC at this time d/t POC expiration. Pt made good progress w/PT and had improved neck ROM and improved pain. Pt will require a new referral to return to PT. Physical Therapy Plan Discharge Physical Therapy Discharge Reasons No Longer Attending PT
== END 2023-02-24 10:29 | disposition home or self-care (01) ==
LOC: PHYS 09:00
PROVIDERS: Family Provider Internal Medicine; PCP Internal Medicine; Referring Provider Internal Medicine; Visit Provider Internal Medicine
DX: R26.89 Other abnormalities of gait and mobility (principal); M54.2 Cervicalgia; Z98.1 Arthrodesis status; R53.1 Weakness; R29.3 Abnormal posture
CPT/HCPCS: 97010; 97110; 97112; 97140; 97162; 97535

== ENCOUNTER → 2023-02-21 12:37 | Outpatient (CLI) | payer MEDICARE, BC, SELFPAY ==
[2023-02-21 14:05] LABS: Alanine Aminotransferase 41 IU/L (<50); Albumin 3.9 g/dL (3.5-5.0); Albumin Globulin Ratio 1.6 (1.0-2.8); Alkaline Phosphatase 143 U/L (38-126); Aspartate Aminotransferase 30 IU/L (17-59); BUN Creatinine Ratio 20.3 (6-22); Bilirubin Total 0.9 mg/dL (0.2-1.3); Blood Urea Nitrogen 13 mg/dL (9-20); Calcium 8.9 mg/dL (8.4-10.2); Carbon Dioxide 24 mmol/L (22-32); Chloride 100 mmol/L (98-107); Estimated Glomerular Filt Rate > 60 mL/min (>60); Globulin 2.5 g/dL (1.7-4.1); Glucose 379 mg/dL (80-110); HEMOLYSIS < 15 (0-50); Sodium 133 mmol/L (137-145); Total Protein 6.4 g/dL (6.3-8.2)
[2023-02-21 14:21] LABS: Free T4, Direct Thyroxine 1.05 ng/dL (0.78-2.19)
[2023-02-21 14:35] LABS: Thyroid Stimulating Hormone 4.36 uIU/mL (0.47-4.68)
[2023-02-22 08:37] LABS: x Labcorp Estim. Avg Glu (eAG) 329 mg/dL (.); x Labcorp Hemoglobin A1c 13.1 % (4.8-5.6)
== END ==
PROVIDERS: Family Provider Internal Medicine; PCP Internal Medicine; Referring Provider Internal Medicine; Visit Provider Internal Medicine
DX: E03.9 Hypothyroidism, unspecified; E78.2 Mixed hyperlipidemia; I10 Essential (primary) hypertension; E11.9 Type 2 diabetes mellitus without complications
CPT/HCPCS: 36415; 80053; 83036; 84439; 84443

== ENCOUNTER → 2023-03-12 08:31 | Outpatient (CLI) | payer MEDICARE, BC, SELFPAY ==
--- NOTE | 2023-03-12 08:34 | DI.MRI.S_ITS ---
PROCEDURE: MR LUMBAR SPINE WO CON INDICATIONS: Spinal stenosis, lumbar region with neurogenic cla TECHNIQUE: Noncontrast sagittal T1 spin echo and T2 fast echo, sagittal STIR, and T2 fast spin echo through the lumbar spine. In cases with scoliosis, additional coronal T2 fast spin echo may be performed. COMPARISON: [facility], MR, MR LUMBAR SPINE WO CON, 04/18/2022, 10:33. FINDINGS: Image quality: Excellent. Alignment and Curvature: Trace show a retrolisthesis of L1 on L2, trace retrolisthesis of L2 on L3, trace retrolisthesis of L4 on L5. Trace retrolisthesis of L5 on S1. Bone Marrow: Marrow is of normal overall signal. No acute vertebral body compression fractures. Spinal Cord: Conus medullaris terminates at the L1-L2 level. Visualized cord demonstrates normal signal and size. Paraspinous Soft Tissues: No paravertebral masses. T12-L1: Mild disc bulge. Mild facet hypertrophy. Macro canal L1-L2: Mild interval progression. Disc bulge. Facet hypertrophy. Gwty-eu-jbciyxem canal stenosis. Mild bilateral foraminal stenosis. L2-L3: No significant change. Disc bulge. Facet and ligament hypertrophy. Moderate canal stenosis. Mild bilateral foraminal stenosis. L3-L4: Interval progression. Diffuse disc bulge. Bilateral facet hypertrophy. Interval development of superimposed left paracentral disc protrusion/extrusion inferiorly. Severe canal stenosis. There is also a free disc fragment in the left foramen which contributes to a degree of left foraminal L3 nerve root impingement. L4-L5: No significant change. Posterior disc post osteophyte. Facet hypertrophy. Mild canal stenosis. Mild bilateral foraminal stenosis. L5-S1: Interval progression. Disc bulge. Facet hypertrophy. No significant central canal stenosis. Progression of right foraminal narrowing, secondary to foraminal disc protrusion, severe, with right foraminal L5 nerve root impingement. IMPRESSION: 1. Diffuse degenerative change, as before. Multilevel underlying facet arthropathy. 2. Interval progression at L3-L4. There is severe canal stenosis. There is interval development of a superimposed left paracentral disc protrusion/extrusion. Also, there is now a free disc fragment in the left foramen which results in a degree of left foraminal L3 nerve root impingement. 3. Progression at L5-S1. Right foraminal narrowing is now severe. 4. Canal stenosis is mild to moderate at L1-L2, moderate at L2-L3, severe at L3-L4, and mild at L4-L5. Dictated by: Joaquim Reynoso M.D. on 03/14/2023 at 9:17 Approved by: Joaquim Reynoso M.D. on 03/14/2023 at 9:27
== END ==
PROVIDERS: Family Provider Internal Medicine; PCP Internal Medicine; Referring Provider Orthopaedic Surgery; Visit Provider Orthopaedic Surgery
DX: M48.062 Spinal stenosis, lumbar region with neurogenic claudication (principal); M48.07 Spinal stenosis, lumbosacral region; M47.816 Spondylosis without myelopathy or radiculopathy, lumbar region; M47.817 Spondylosis without myelopathy or radiculopathy, lumbosacral region
CPT/HCPCS: 72148

== ENCOUNTER → 2023-05-05 12:03 | Outpatient (CLI) | payer MEDICARE, BC, SELFPAY ==
[2023-05-05 13:32] LABS: Add Manual Diff / Slide Review NO; Basophils Absolute Auto 0 /uL (0-100); Basophils Percent Auto 0.5 % (0-2); Eosinophils Absolute Auto 100 /uL (0-450); Eosinophils Percent Auto 2.3 % (2-4); Hematocrit 44.8 % (41-53); Hemoglobin 15.8 g/dL (13.5-17.5); Lymphocytes Absolute Auto 1100 /uL (1100-4500); Lymphocytes Percent Auto 19.4 % (25-40); Mean Corpuscular HGB Conc 35.1 % (30-36); Mean Corpuscular Hemoglobin 35.2 PG (26-34); Mean Corpuscular Volume 100.2 fL (80-100); Monocytes Absolute Auto 900 /uL (0-900); Neutrophils Absolute Auto 3400 /uL (1500-7000); Neutrophils Percent Auto 61.8 % (50-75); Platelet Count 209 X10^3/uL (150-400); Red Blood Cell Count 4.48 X10^6/uL (4.5-5.9); Red Cell Distribution Width 13.6 % (11.6-14.8); White Blood Cell Count 5.4 X10^3/uL (4.5-11.0)
[2023-05-05 13:58] LABS: BUN Creatinine Ratio 27.6 (6-22); Blood Urea Nitrogen 21 mg/dL (9-20); Calcium 9.6 mg/dL (8.4-10.2); Carbon Dioxide 24 mmol/L (22-32); Chloride 104 mmol/L (98-107); Estimated Glomerular Filt Rate > 60 mL/min (>60); Glucose 135 mg/dL (80-110); HEMOLYSIS < 15 (0-50); Potassium 4.1 mmol/L (3.4-5.1); Sodium 137 mmol/L (137-145)
[2023-05-06 06:35] LABS: Labcorp Hemoglobin (Hb) A1c 8.3 % (4.8-5.6)
== END ==
PROVIDERS: Family Provider Internal Medicine; PCP Internal Medicine; Referring Provider Orthopaedic Surgery Orthopaedic Surgery of the Spine; Visit Provider Orthopaedic Surgery Orthopaedic Surgery of the Spine
DX: Z01.818 Encounter for other preprocedural examination (principal); R73.9 Hyperglycemia, unspecified; Z01.812 Encounter for preprocedural laboratory examination
CPT/HCPCS: 36415; 80048; 83036; 85025; 93005; 93010

== ENCOUNTER 2023-05-16 10:03 | Inpatient (IN) | payer MEDICARE, BC, SELFPAY ==
[2023-05-09 08:31] VITALS: BMI 29.1
[2023-05-16] VITALS (12 sets, daily range): BP systolic 111–145; BP diastolic 56–96; PULSE 54–95; RESP 10–18; TEMP 35.6–36.6; O2SAT 92–98; BMI 26.4
--- NOTE | 2023-05-16 10:31 | PM.PREOP ---
Pre-operative Note COVID-19 Criteria for continued procedure: Expected advancement of disease process, Possibility delay results in more complex future surgery or treatment, Increased loss of function, Continuing or worsening of significant or severe pain, Deterioration of the patient's condition or overall health and Delay expected to result in less-positive ultimate med/surg outcome Interval Note History & Physical reviewed/Exam performed by Physician: Yes Changes to H&P: No
[2023-05-16] MEDS: LACTATED RINGERS 1,000 ML 42 ML IV (10:36)
[2023-05-16] MEDS: CEFAZOLIN 2 GM/100 ML PREMIX 100 ML IV ×2 (11:10→18:46)
--- NOTE | 2023-05-16 11:24 | SUR.OPER ---
Prone on spine table, head in foam head support, padded chest and pelvic supports, gel pad at knees, lower legs supported by pillows; nipples, genitalia and toes free of pressure, arms secured on foam padded arm boards at <90 degrees abduction. Tape over blanket at thigh secured to table.
[2023-05-16] MEDS: BUPIVACAINE 0.25% (PF) 60 ML, EPINEPHrine 0.15 MG INJ (12:31)
[2023-05-16] MEDS: BUPIVACAINE LIPOSOME 266 MG/20 ML VIAL INJ (12:34)
--- NOTE | 2023-05-16 13:22 | P.OP_ITS ---
Operative Date/Time/Diagnoses Date of procedure: 05/16/23 Time of procedure: 11:00 Pre-op diagnosis: 1. L3-4 spinal stenosis with neurogenic claudication 2. Lumbar spondylosis with radiculopathy Post-op diagnosis: same Procedure & Clinicians Procedure: 1. L3-4 Postero-lateral and posterior interbody fusion 2. L3-4 interbody cage placement. 3. L3-4 decompressive laminectomy with bilateral facetecomies 4. L3-4 Posterior non-segmental instrumentation 5. [place] of bone marrow from iliac crest 6. Utilization of microsurgical technique and operating microscope Same procedure as scheduled: Yes Indications: Patient has been having chronic back pain and worsening lumbar radiculopathy and symptoms of neurogenic claudication. Patient failed multiple conservative management with worsening pain weakness and numbness in his lower extremity. Patient has been having difficulty performing activity of daily living. After discussing risks benefits of treatment options, patient elected proceed with surgery. Surgeon: Kenya Chow Director Of Food And Beverage Services: Felicity Parada Click Yes if Unassisted: No Anesthesia Type: General Operative Notes Closure Type: primary Specimen(s): none sent Prosthetic devices, grafts, tissues, transplants, or devices: Globus revolve screws, Rise cage Estimated Blood Loss (mL): 150 Blood products transfused: none Procedure in detail: Patient was seen in the preoperative area. Risks and benefits of the surgery was discussed with the patient. Informed consent was obtained from the patient and placed in the chart. Surgical site was marked. Patient was taken to the operative room. General anesthesia was administered. Prophylactic antibiotic was given to the patient less than 30 min before the incision was made. Patient was placed into a prone position on the Isaiah table. Patient's back was then prepped and draped in the sterile fashion. Time-out was performed at this time. Using AP and lateral C-arm imaging the interval between L3-4 was identified and marked on patient's back. A 2 inch incision 2 in from midline was made on the left side first. The fascia was incised in line with skin incision. Globus MARS retractors was placed inside the incision and docked onto the L3 lamina. Using microsurgical technique and operating microscope, a L3 laminectomy and L3-4 facetectomy was performed using a Kerrison rongeur. The laminectomy and facetectomy was performed in order to decompress patient's cauda equina as well as the nerve roots exiting at the L3-4 level. The disc space at L3-4 was identified. And a total diskectomy was performed at L3-4 level. The endplates were decorticated using a rasp and shaver. The total diskectomy and decortication was performed at L3-4 level in order to to accomplish a L3-4 fusion. The local bone from the laminectomy and facetectomy was saved for local bone grafting. After the total diskectomy and decortication was completed, Trifecta bone graft material was combined with local bone that was harvested earlier. At this time, a separate skin is incision was made over the iliac crest. A Jamshidi needle was inserted into the iliac crest through a separate skin incision. 5 cc of bone marrow aspiration was obtained through the separate skin incision using a Jamshidi needle from the iliac crest. The bone marrow aspiration was combined with local bone and the Trifecta bone grafting material. The bone grafting material was placed into the L3-4 interbody space along with a expandable cage. The cage was expanded to its maximum height using the torque limiting screwdriver. During the process of laminectomy, patient was found have significant amount of steroid crystals with significant adhesion adjacent to ligamentum flavum at the L3-4 interval in the epidural space. Patient had significant adhesion between the dura and the ligamentum flavum. Upon removal of the ligamentum flavum, there were 2 small pinholes indicating possible previous dural puncture at the time of prior epidural steroid injection. The pinhole-sized dural defect was patched with DuraGen and Tisseel. There was no CSF leakage. At this time a mirror image incision was made on the right side. The fascia was incised in line with the skin incision. Globus MARS retractor was inserted and docked onto the L3-4 posterolateral gutter. Using the power drill, posterior- lateral decortication was performed at L3-4 level until bleeding cortical bone was identified. The remaining bone grafting material was placed into the L3-4 posterior lateral gutter he order to accomplish posterolateral fusion at the L3- 4 level. Using the double C-arm technique, pedicle screws were placed into the L3-4 pedicles bilaterally. This was done by placing the Jamshidi needle into the pedicles, then placing the guidewires over the Jamshidi needle, and finally placing the cannulated screws over the guidewires bilaterally. After the pedicle screws were placed, 2 titanium rods was locked into the heads of the pedicle screws using locking caps and torque limiting screwdriver. After all the hardware was placed, and confirmed with AP and lateral C-arm imaging, the wound was then irrigated with sterile normal saline and packed with Ray-Stu gauze for 3 min to accomplish hemostasis. After the gauze was removed the deep fascia was closed with #1 Vicryl suture. The subcutaneous layer was closed with 2-0 Vicryl. The skin was closed with skin delia. Patient tolerated the procedure well. There were no complications. The Operation could not have been safely performed without compromising the technical result or length of the procedure, without the assistance of a skilled operating room surgical technician. The operating room surgical technician was medically necessary for proper positioning, retraction and manipulation of instruments, proper exposure, surgical preparation, and manipulation of tissue. As a precaution for CSF leakage, patient will be kept head of bed flat until tomorrow morning. Patient's head of bed will be elevated starting at 30? and then progressed to 60 if no headaches. Complications: none Post-operative Condition: stable Disposition: PACU Plan for aftercare: Admit to inpatient hospital Keep head of bed flat except for eating until tomorrow 7AM. Then gradually elevate 30 degrees and then to 60 in 30 min. Then progress activities as tolerated with PT.
--- NOTE | 2023-05-16 13:27 | DI.RAD.S_ITS ---
PROCEDURE: XR LUMBAR SPINE 2-3V INDICATIONS: L3-4 TLIF TECHNIQUE: 2 views of the lumbar spine were acquired. COMPARISON: [facility], , L-SPINE 2-3 VIEWS, 09/08/2015, 9:27. FINDINGS: 2 intraoperative fluoroscopic images of the lumbar spine demonstrate postsurgical changes of interval spinal fusion of L3 and L4 and discectomy of the L3-4 disc. Placement of interbody disc spacer at L3-4. No gross hardware complication seen. Overall alignment appears anatomic. IMPRESSION: Intraoperative fluoroscopic support for posterior lumbar fusion of L3-4. No gross hardware complication seen. Please see separate procedure note for further details. Dictated by: Jerman Lunsford M.D. on 05/16/2023 at 13:27 Approved by: Jerman Lunsford M.D. on 05/16/2023 at 13:29
[2023-05-16] MEDS: OXYCODONE IR 5 MG TABLET PO (14:09)
--- NOTE | 2023-05-16 15:55 | PC.NURSE ---
Addendum entered by Karoline Moura R.N. 05/16/23 18:55: When patient admitted earlier, questions about suicide asked. Pt states that his 3 years ago and that he had thoughts of not being here at times but he is not actively suicidal or looking to hurt himself. He states that he has made more friends and that this has not recently been an issue. At this time patient came out to be low suicide risk. Just making a note of this. Original Note: Patients dressing to lower back is cdi, no drainage noted. He has voided 300+ in the urinal and was just repositioned from his left side to back. Patient tolerating ivf and cms wnl. Denies any numbness or tingling at this time. Daughter visiting in room.
[2023-05-16] MEDS: LACTATED RINGERS 1,000 ML 125 ML IV (16:08)
[2023-05-16] MEDS: OXYCODONE IR 10 MG TABLET PO ×2 (16:12→21:11)
[2023-05-16] MEDS: SENNOSIDES 8.6 MG TABLET 17.2 MG PO (21:11)
[2023-05-16] MEDS: ACETAMINOPHEN 325 MG TABLET 650 MG PO (21:11)
[2023-05-16] MEDS: DOCUSATE 100 MG CAPSULE PO (21:11)
[2023-05-16] MEDS: glipiZIDE 5 MG TABLET PO (21:11)
[2023-05-17 00:41] VITALS: BP 141/86; PULSE 88; RESP 18; TEMP 36; O2SAT 93
[2023-05-17] MEDS: CEFAZOLIN 2 GM/100 ML PREMIX 100 ML IV (02:41)
[2023-05-17] MEDS: hydrOXYzine pamoate 25 MG CAPSULE PO ×3 (02:44→22:11)
--- NOTE | 2023-05-17 04:09 | PC.NURSE ---
0300: Pt requested IVF to be turned off d/t unable to sleep d/t voiding multiple times during the night. Pt has been tolerating PO liquids; no c/o N&V. No acute distress noted.
--- NOTE | 2023-05-17 08:03 | P.PN_ITS ---
Subjective Subjective Date Patient Seen: 05/17/23 Time Patient Seen: 08:03 Interval history: Patient's pain is mild. Denies headache. Denies fever or chills. No nausea or vomiting. Patient lives alone. Patient states he may be able to stay with friends or have some friends checking on him at home. Exam Vital Signs (past 8 hours): - 05/17/23 00:41 Temperature 96.8 F L Pulse Rate 88 Respiratory Rate 18 Blood Pressure 141/86 H Pulse Oximetry 93 Oxygen Flow Rate 0 Oxygen Delivery Method Room Air Oxygen Flow Rate 0 Narrative Exam Narrative: 73-year-old male sitting up in bedside chair having breakfast. Motor functions intact bilateral lower extremities. Sensation grossly intact to light touch bilateral lower extremities. Const General: cooperative and comfortable FOR[facility]LY [facility], [facility] Medical History Atrial fibrillation (03/12/14) Chronic cholecystitis COPD (chronic obstructive pulmonary disease) Esophageal dysmotility Essential hypertension (11/16/17) History of cardioversion History of COVID-19 (~2020) Hyperlipidemia Hypothyroidism Paroxysmal atrial fibrillation PTSD (post-traumatic stress disorder) 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/17) Type 2 diabetes mellitus without complication (11/16/17) Unspecified asthma (06/08/11) Surgical History H/O vasectomy History of arthroscopy of right shoulder History of carpal tunnel repair History of knee replacement Hx of arthroscopy of left knee Hx of arthroscopy of right knee Hx of bilateral cataract extraction Hx of eye surgery Hx of fusion of cervical spine (2017) Hx of shoulder surgery Status post cholecystectomy Status post hernia repair Family History Mother Hypertension Gallstones Father Hypertension Cancer Grandmother Hypertension Heart disease Cancer Social History marital status: number of children: 1 household members: none lives independently: Yes caregiver/support person: No housing: house pets and animals: No education level: college occupational status: other current occupational exposures/hazards: No 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: None leisure activities: fishing and other Smoking Status: Never smoker Tobacco: How many years used: 0 quit status: quit date established second hand exposure: Yes alcohol intake: current substance use type: does not use eating out: 1-3 times/week Type(s) of exercise: other and normal ROM and activity Assessment & Plan Post-op Postoperative Procedures: Procedures Operation Date: 05/16/23 12:15 Actual Procedure Side Surgeon p L3-4 TLIF Kenya Chow MD Postoperative day: 1 Postoperative status: doing well Postoperative status narrative: Progressing as expected status post L3-L4 posterolateral and posterior interbody fusion Patient had significant adhesion between the dura and the ligamentum flavum. Upon removal of the ligamentum flavum, there were 2 small pinholes indicating possible previous dural puncture at the time of prior epidural steroid injection. The pinhole-sized dural defect was patched with DuraGen and Tisseel. There was no CSF leakage. Postoperative plan narrative: Keep head of bed flat except for eating until tomorrow 7AM. Then gradually elevate 30 degrees and then to 60 in 30 min. Then progress activities as tolerated with PT. Multimodal pain management Disposition to be determined Quality VTE Deep Vein Thrombosis/Pulmonary Embolism Present on Admission: No
[2023-05-17] MEDS: ACETAMINOPHEN 325 MG TABLET 650 MG PO ×2 (08:37→18:07)
[2023-05-17] MEDS: polyethylene glycoL 3350 17 GM POWD.PACK PO (08:38)
[2023-05-17] MEDS: glipiZIDE 5 MG TABLET PO ×2 (08:38→22:11)
[2023-05-17] MEDS: DOCUSATE 100 MG CAPSULE PO ×2 (08:38→22:11)
[2023-05-17 10:00] VITALS: BP 137/79; PULSE 83; RESP 18; TEMP 37; O2SAT 94
[2023-05-17] MEDS: OXYCODONE IR 10 MG TABLET PO ×2 (13:18→22:10)
--- NOTE | 2023-05-17 13:25 | PT.IIE ---
Current Diagnoses Spondylosis without myelopathy or radiculopathy, lumbar region (05/16/23) Spinal stenosis, lumbar region with neurogenic claudication (05/16/23) Surgery Performed Operation Date: 05/16/23 12:15 Actual Procedures p L3-4 TLIF - Kenya Chow MD Surgical History (Last Reviewed 05/17/23 @ 08:04 by Aaron Gaytan PA-C) H/O vasectomy History of arthroscopy of right shoulder History of carpal tunnel repair History of knee replacement Hx of arthroscopy of left knee Hx of arthroscopy of right knee Hx of bilateral cataract extraction Hx of eye surgery Hx of fusion of cervical spine (2017) Hx of shoulder surgery Status post cholecystectomy Status post hernia repair Medical History (Last Reviewed 05/17/23 @ 08:04 by Aaron Gaytan PA-C) Atrial fibrillation (03/12/14) Chronic cholecystitis COPD (chronic obstructive pulmonary disease) Esophageal dysmotility Essential hypertension (11/16/17) History of cardioversion History of COVID-19 (~2020) Hyperlipidemia Hypothyroidism Paroxysmal atrial fibrillation PTSD (post-traumatic stress disorder) 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/17) Type 2 diabetes mellitus without complication (11/16/17) Unspecified asthma (06/08/11) Physical Therapy Inpatient Evaluation/Re-Eval M1 PT/OT-IP Prior Functional Status Start: 05/16/23 15:08 Freq: NEEDED Status: Active Protocol: Document 05/17/23 13:25 AB (Rec: 05/17/23 17:00 AB [id number]) Medical Review Prior Functional Status Medical History Reviewed Yes Communication able to make needs known Mobility and Gait pt stated that he is modified independent with all mobilities and ambulation without AD Activities of Daily Living and IADL's per OT notes: Pt states having pain during ADL needs and difficulties to richi his shoes and socks. Social History Household Members none Living Arrangements House Number of Floors (Floors) One Floor Number of Stairs To Enter/Railing? 1 step to enter Home Environment High Toilet,Walk in Shower Home Equipment Front Wheel Walker,Shower Seat with Backrest,Hand Held Shower,Lift Recliner Additional Social History Comment pt plans to sleep on his lift chair pt stated that his daughter or neighbors will be able to assist and stay with him if needed M1 PT/OT-IP Prior Functional Status Start: 05/17/23 15:11 Freq: NEEDED Status: Active Protocol: Document 05/17/23 14:45 [facility] (Rec: 05/17/23 15:31 [facility] [id number]) Medical Review Prior Functional Status Medical History Reviewed Yes Communication Independent Mobility and Gait Pt prior having pain during mobility needs. Activities of Daily Living and IADL's Pt states having pain during ADL needs and difficulties to richi his shoes and socks. Social History Household Members none Living Arrangements House Number of Floors (Floors) One Floor Number of Stairs To Enter/Railing? None Home Environment High Toilet,Walk in Shower Home Equipment Front Wheel Walker,Straight Cane,Shower Seat with Backrest ,Hand Held Shower,Shirt Folder M2 PT-IP Current Condition Start: 05/16/23 15:08 Freq: NEEDED Status: Active Protocol: Document 05/17/23 13:25 AB (Rec: 05/17/23 17:00 AB [email or web address]) Physical Therapy Current Condition Current Condition Evaluation Date 05/17/23 Treatment Diagnosis s/p L3-4 TLIF; difficulty in walking Onset Date 05/16/23 M3 PT-IP Subjective Start: 05/16/23 15:08 Freq: NEEDED Status: Active Protocol: Document 05/17/23 13:25 AB (Rec: 05/17/23 17:00 AB [email or web address]) Subjective Physical Therapy Visit Type Type Initial Evaluation Visit Start Time 13:25 Visit Stop Time 14:11 Total Visit Minutes 46 Number of SALES MARKET LEADER Visits 0 Physical Therapy Visit Comments Patient Comments agreeable to do PT Therapy Pain Assessment Pain When Pain Assessed At Rest Pain Present Pain Present Pain Reported Location Lower Back Intensity 4 Scale Used Numeric (0 - 10) Pain Behaviors Guarding Pain Management Techniques Distraction,Modification of Treatment,Re-positioning, Timing of Activity with Medications M4 PT-IP Mobility and Gait Start: 05/16/23 15:08 Freq: NEEDED Status: Active Protocol: Document 05/17/23 13:25 AB (Rec: 05/17/23 17:00 AB [id number]) PT-Bed Mobility Assessment Rolling Type of Rolling Log Rolling Level of Assist Standby Assistance Supine to Sit Supine to Sit Standby Assistance Sit to Supine Sit to Supine Standby Assistance PT-Transfer Assessment Sit to and From Stand Sit to and from Stand Moderate Assistance,Maximum Assistance,1 Person Assistance ,Use of Upper Extremities Equipment Transfer Assistive Device Gait Belt,Front Wheeled Walker Orthotic/Prosthetic Devices or Brace: No Transfers Transfer Destination Bed,Chair Transfer Technique ambulated Transfer Ability Level of Assist Minimal Assistance,1 Person Assistance,Use of Upper Extremities Comments Mobility Comments pt able to recall his back precautions. completed sit to stand mod to max A and max cues. ambulated in room using FWW CGA ~ 40 ft. sat on EOB and completed log roll sit<> supine SBA. educated pt for sit<>stand techniques. completed sit <>stand mod to max A and max cues. repeated x 2. step transfer to chair using FWW CGA. educated on sit <>stand again and completed from the chair x 3 and continues to require mod to max A and cues. pt want to stay on the chair. positioned on the chair. call light and table placed within reach. Gait Assessment Gait Gait Assistance Required: Contact Guard Assist Distance (Feet) 40 Able to Maintain Weight Bearing Status Yes During Gait Assistive Devices Assistive Device Gait Belt,Front Wheeled Walker Orthotic/Prosthetic Devices or Brace: No Gait Deviations General Gait Pattern Decreased Stride Length, Decreased Feet Clearance Factors Limiting Gait Function Factors Limiting Gait Function Decreased Activity Tolerance, Decreased Strength,Limited Range of Motion,Pain,Poor Balance,Poor Safety Awareness PT-Balance Assessment Sitting Balance and Reactions Static Sitting Balance Ability Normal Dynamic Sitting Balance Ability Normal Standing Balance and Reactions Static Standing Balance Ability Fair Dynamic Standing Balance Ability Fair Device Used FWW M5 PT-IP Objective Assessments Start: 05/16/23 15:08 Freq: NEEDED Status: Active Protocol: Document 05/17/23 13:25 AB (Rec: 05/17/23 17:00 [email or web address]) Orientation Orientation/Cognition Level of Alertness Alert Orientation Name,Place,Situation Safety Awareness Decreased Safety Awareness Memory Description Short Term Impaired Gross Range of Motion Lower Extremity ROM Assessment Within Functional Limits Strength Lower Extremity Strength Assessment Within Functional Limits Sensation Assessment Sensation Gross Sensation WNL Muscle Tone Muscle Tone WNL Yes M6 PT-IP Treatment Start: 05/16/23 15:08 Freq: NEEDED Status: Active Protocol: Document 05/17/23 13:25 AB (Rec: 05/17/23 17:00 AB [email or web address]) Physical Therapy Treatment Education Education Provided Precautions,Weight Bearing Status,Post-Op Packet,Safety M7 PT-IP Assessment and Plan Start: 05/16/23 15:08 Freq: NEEDED Status: Active Protocol: Document 05/17/23 13:25 AB (Rec: 05/17/23 17:00 AB [id number]) PT Summary Assessment and Plan Potential Rehabilitation Potential Good Status of Condition at Evaluation Evolving Summary Impairments Pain,ROM,Strength,Balance, Coordination,Sensation,Tone, Cognition,Bed Mobility, Transfers,Gait,Activity Tolerance Assessment Summary Pt s/p L3-4 TLIF POD 1. pt requiring mod to max A for sit to stand but able to ambulation CGA using FWW. pt plans to go home and stated that he has his daughter and neighbors that can assist him if needed. will continue to assess mobility for safe d/c plans. Goals Bed Mobility Goal Independent Transfer Goal Independent,Front Wheeled Walker Gait Goal Independent,Front Wheel Walker Gait Distance 200 Other Goals up/down 1 step using FWW SBA Days to Meet Goals 5 Frequency of Treatment Frequency Of Treatment Twice a Day Treatment Plan Physical Therapy Treatment Plan Bed Mobility Training,Transfer Training,Gait Training, Therapeutic Exercise,Balance Retraining,Post Op Education, Discharge Planning,Hot or Cold Pack,Neuromuscular Re-ed, Coordination Retraining,Manual Therapy Precautions Lumbar Precautions Log Roll,No Twisting,Limit Bending,Lifting Restriction of 10 lbs,Gait Belt above Incisional Area Weight Bearing Status Weight Bearing Status Weight Bear as Tolerated Recommendations To Nursing Amount of Assist Needed 1 Person Assist Discharge Recommendations PT Discharge Recommendations Home with Assistance,Home Health Transportation Needs at Discharge Private Vehicle
--- NOTE | 2023-05-17 15:07 | OT.IP.EVAL ---
Current Diagnoses Spondylosis without myelopathy or radiculopathy, lumbar region (05/16/23) Spinal stenosis, lumbar region with neurogenic claudication (05/16/23) Surgery Performed Operation Date: 05/16/23 12:15 Actual Procedures p L3-4 TLIF - Kenya Chow MD Past Medical History (Last Reviewed 05/17/23 @ 08:04 by JAVIER LlamasC) Atrial fibrillation (03/12/14) Chronic cholecystitis COPD (chronic obstructive pulmonary disease) Esophageal dysmotility Essential hypertension (11/16/17) History of cardioversion History of COVID-19 (~2020) Hyperlipidemia Hypothyroidism Paroxysmal atrial fibrillation PTSD (post-traumatic stress disorder) 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/17) Type 2 diabetes mellitus without complication (11/16/17) Unspecified asthma (06/08/11) Surgical History (Last Reviewed 05/17/23 @ 08:04 by JAVIER LlamasC) H/O vasectomy History of arthroscopy of right shoulder History of carpal tunnel repair History of knee replacement Hx of arthroscopy of left knee Hx of arthroscopy of right knee Hx of bilateral cataract extraction Hx of eye surgery Hx of fusion of cervical spine (2018) Hx of shoulder surgery Status post cholecystectomy Status post hernia repair Occupational Therapy Inpatient Evaluation/Re-Eval M1 PT/OT-IP Prior Functional Status Start: 05/17/23 15:11 Freq: NEEDED Status: Active Protocol: Document 05/17/23 14:45 [facility] (Rec: 05/17/23 15:31 [facility] [id number]) Medical Review Prior Functional Status Medical History Reviewed Yes Communication Independent Mobility and Gait Pt prior having pain during mobility needs. Activities of Daily Living and IADL's Pt states having pain during ADL needs and difficulties to richi his shoes and socks. Social History Household Members none Living Arrangements House Number of Floors (Floors) One Floor Number of Stairs To Enter/Railing? None Home Environment High Toilet,Walk in Shower Home Equipment Front Wheel Walker,Straight Cane,Shower Seat with Backrest ,Hand Held Shower,Microfilm Camera Operator M2 OT-IP Current Condition Start: 05/17/23 15:11 Freq: Status: Active Protocol: Document 05/17/23 14:45 [facility] (Rec: 05/17/23 15:31 [facility] [id number]) Occupational Therapy Current Condition Current Condition Evaluation Date 05/17/23 Treatment Diagnosis S/p L3-4 TLIF Diagnosis Onset Date 05/16/23 Post Operative Precautions Lumbar Precautions Log Roll,No Twisting,Limit Bending,Lifting Restriction of 10 lbs,Gait Belt above Incisional Area M3 OT- IP Subjective and Pain Start: 05/17/23 15:11 Freq: Status: Active Protocol: Document 05/17/23 14:45 [facility] (Rec: 05/17/23 15:31 [facility] [id number]) OT- Subjective Occupational Therapy Visit Type Type Initial Evaluation Visit Start Time 14:40 Visit Stop Time 15:07 Total Visit Minutes 27 Occupational Therapy Visit Comments Patient Comments Pt agreed to get up. Patient/Caregiver Goals To go home OT Pain Assessment Pain When Pain Assessed At Rest Pain Present Pain Present Pain Reported Location Lower Back Intensity 4 Scale Used Numeric (0 - 10) M4 OT- IP ADL's Start: 05/17/23 15:11 Freq: Status: Active Protocol: Document 05/17/23 14:45 [facility] (Rec: 05/17/23 15:31 [facility] [id number]) OT [id number] General Evaluation Self-Feeding Ability Independent OT ADL-Grooming Comments OT Grooming Comments Pt states did prior. OT ADL-Oral Care Comments Oral Care Comments Pt aware to spit into a cup or hinge at his hips for oral care needs. OT ADL-Dressing General Eval Lower Body Dressing Ability Maximum Assistance Areas Needing Assistance Socks Comments OT Dressing Comments Able to show pt use of sock aid and circuit tester for LB dressing needs. Pt states will not be wearing socks at this time. OT ADL-Toileting Comments OT Toileting Comments Pt not having to go. Pt able to reach appropriately while standing to wipe. OT ADL-Bathing Comments OT Bathing Comments NOt performed. M5 OT- IP IADL's Start: 05/17/23 15:11 Freq: Status: Active Protocol: Document 05/17/23 14:45 [facility] (Rec: 05/17/23 15:31 [facility] [id number]) OT-Instrumental Activities of Daily Living Deficits IADL Deficits Identified Deficits Home Safety Awareness Awareness of Need for Assistance at Home Good Awareness Ability to Problem Solve Emergency Able to Problem Solve Situations Home Safety Comments Pt has good awareness of his precautions and needs and to have friends come to assist with his needs. M6 OT- IP Functional Cognition Start: 05/17/23 15:11 Freq: Status: Active Protocol: Document 05/17/23 14:45 [facility] (Rec: 05/17/23 15:31 [facility] [id number]) Cognitive Factors Limiting Selfcare Function Cognitive Ability Level of Alertness Alert Patient Orientation Name,Place,Situation Attention Span Ability Capable of Focused Attention, Capable of Sustained Attention Ability to Follow Commands Able to Follow Multi-Step Commands Cognitive Comments Cognitive Assessment Comments Pt intact for needs and able to incorporate his precautions for ADL and mobility needs. M7 OT- IP Mobility and Balance Start: 05/17/23 15:11 Freq: Status: Active Protocol: Document 05/17/23 14:45 [facility] (Rec: 05/17/23 15:31 [facility] [id number]) OT-Transfer Assessment Sit to and From Stand Sit to and from Stand Standby Assistance Transfers Transfer Ability Standby Assistance Technique Transfer Destination Chair Transfer Technique Stand Step Pivot Devices Transfer Assistive Devices Gait Belt,Front Wheeled Walker Comments Mobility Comments SBA to stand and walk in the room with FWW. Pt states to sleep in his lift chair. OT- Balance Assessment Sitting Balance and Reactions Static Sitting Balance Ability Normal Dynamic Sitting Balance Ability Good Standing Balance and Reactions Static Standing Balance Ability Good Dynamic Standing Balance Ability Fair M9 OT- IP Assessment and Plan Start: 05/17/23 15:11 Freq: Status: Active Protocol: Document 05/17/23 14:45 [facility] (Rec: 05/17/23 15:31 [facility] [id number]) OT Summary Assessment and Plan Potential Rehabilitation Potential Excellent Analytic Complexity at Evaluation Low Summary OT Impairments Pain,Balance,Functional Mobility,Dressing,Bathing, Shower Transfers Progress Towards Goals Progressing Toward Goals Assessment Summary Pt low complexity , main barriers are pain and decreased dynamic balance and will not have to use a FWW to get around. Pt has good understanding for ADL needs and has a circuit tester to use and considering getting sock aid, but prior able to richi his socks with his circuit tester. Pt states can have a friend come and stay with him initially. Pt suggested to have a bag on his FWW so able to carry items . Pt to go home with assist when medically stable. Goals Dressing Goal Independent Toileting Goal Independent Bathing Goal Independent Toilet Transfer Goal Independent Shower Transfer Goal Independent Days to Meet Goals 27 Frequency of Treatment Frequency Of Treatment Once a Day Treatment Plan OT Treatment Plan ADL Training,Functional Mobility,Patient/Family Education,Discharge Planning Discharge Recommendations OT Discharge Recommendations Home with Assistance Transportation Needs at Discharge Private Vehicle
--- NOTE | 2023-05-17 15:41 | CM.DANOTE ---
DCP Assessment: Patient is a 73yo Male here under inpatient status for a planned TLIF with Dr. Chow on 05/16. PCP: Dr. Spears Payer: Medicare and [facility] ART TRACER reviewed EMR. Per MARY Gaytan note, patient is doing well and has friends in the area that can assist him through his recovery. ART TRACER and ERICK Vuong entered room and introduced selves and role. Patient was sitting up in bed and appeared A/Ox4 and was very talkative throughout interaction. Patient was accompanied by friend Karl. Patient reports he lives alone in [facility]. Patient has a walker/cane/shower seat at home. Patient is independent at baseline and drives. Patient's house is one story. 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 Patient reports he has plenty of friends that can help care for him upon d/c. Patient has a friend/neighbor that can give him a ride home when medically stable. Per OT, they are recommending home with assistance for d/c. Plan: patient will d/c home with assistance when medically stable. Patient will utilize friends for transportation in POV plus assistance at home. CM team will continue to follow closely. LUCIEN Masterson Discharge Planning/Care Management Advanced directive, confirm from FAMILY Start: 05/16/23 14:38 Freq: Q24H Status: Active Protocol: Document 05/16/23 15:52 CLL (Rec: 05/16/23 15:55 CLL [id number]) Co-signed By Smita Ruano RN Advance Directive, confirm on record Time 15:55 Person contacted Patient Copy received No CM Discharge Assessment Start: 05/17/23 15:39 Freq: Status: Active Protocol: Document 05/17/23 15:39 SL (Rec: 05/17/23 15:41 SL [id number]) Discharge Planning Assessment Assigned Monument Carver LUCIEN Dang DPOA/Assigned Designee Name Kevin (brother) Contact Information [phone] Advance Directives? Yes Advance Directives on File No History Provided By Patient,Medical Record Prior Living Arrangements House Household Members none Type of transporation used prior to Drives own vehicle admit Independent with ADL's Yes Is patient alert and oriented? Yes Caregiver for Another No DME Already Rented / Owned FWW / Walker,Cane Comment shower seat Barriers to Discharge No Discharge Plan Home Transportation Arrangement friend Whiteboard Updated in Patient Room with Yes name and ext. # of Monument Carver Review Status In Process Next Review Type Continued Stay Review Pre-Anesthesia Assessment Start: 05/09/23 08:31 Freq: Status: Active Protocol: Document 05/09/23 08:31 [facility] (Rec: 05/09/23 09:30 [facility] [id number]) Pre-Anesthesia Assessment Preferred Name Saran Patient Information Reviewed Via Phone Assessment Assessment Completed With Patient Diagnostic Results BMP/CMP,CBC,EKG Comment Labs/EKG @ 05/05/23 Primary Care Provider Tripp Spears Seen Specialist in Last 12 Months Yes Specialist Seen Orthopedist,Other Comment Neurology for neck pain Primary Language Palestinian Painter Supervisor Required No Height 180.34 cm Weight 94.801 kg Body Mass Index (BMI) 29.1 Hearing Ability Normal Visual Assist Magnifying Glass Dentition Type Teeth, Natural Present Barriers to Learning None Hx Anesthesia Reactions No Hx Family Anesthesia Reaction No Hx Malignant Hyperthermia No Hx Blood Transfusions No Anesthesia Review Requested No Company Truck Driver Yes: Pt does not have any available help @ [place]-lives alone alcohol intake current alcohol intake frequency holidays/special occasions only Smoking Status Never smoker Substance Use Type does not use Pain Present Pain Reported Musculoskeletal Symptoms Back Pain,Neck Pain,Radiating Pain into Limb History of Falling (Recent or History of Yes ) Patient is completely paralyzed or No completely immobile Mental Status Oriented to own ability Is patient on oxygen? No Does patient have TERRY/SOB No Hx Sleep Apnea No Currently Taking a Beta [place] No Hx Chest Pain No Hx SOB No Hx Syncope or Dizziness No Anti-Coagulant Therapy No Has a Acid Leveler No Cardiac Testing No Hx Pacemaker/ICD No Pacemaker Rep Required? No Diet Type At Home Diabetic Dysphagia Yes: Once in a while Gastrointestinal Symptoms None Chronic UTI No Bladder Pattern Nocturia Urinary Catheter Present No Hx Urinary Self Catheterization No Diabetes Yes: Pt does not check blood sugar at home HgbA1C 8.3 Date 05/05/23 Presence of External or Internal Medical Yes: Partial bilat knee Devices prosthesis, neck fusion Received a COVID vaccine? Yes Received all doses? Yes Marital Status / Lives With none Current Living Arrangements House Number of Floors (Floors) One Floor Number of Stairs To Enter/Railing? None Support System None Comment Pt is looking to see if someone can assist w/care @ [place] Patient Discharge Plan Description Return Home Comment Pt advised overnight length of stay per surgeon Feels Safe in Current Environment Yes Been Physically Hurt or Threatened By a No Person in Current Environment Do you have thoughts of harming yourself None or others? Are you currently considering suicide? No Do you have a plan to hurt yourself or No Plan others? Do You Have Any Spiritual Beliefs That No May Affect Your HC Choices? Do You Have Any Cultural Practices That No May Affect Your HC Choices? Who Can We Speak to About Patient's Care Family, friends Identifying Code for Release of Patient Declines to issue Information Health Care Proxy/Next of Kin Jason Moreland (brother) Health Care Proxy Emergency Contact Name Jason Moreland (brother) Emergency Contact Advance Directives? Yes Advance Directives on File No Requested Patient Bring Advanced Yes Directives DOS Power of Boiler Installer No PAC Instructions Diabetes instructions,Durable medical equipment,Medications to take/avoid,Nasal antibiotic ,No ETOH/petroleum product on skin DOS,NPO,Pre-surgical wash ,Sensory aids,Sturdy shoes/ comfortable clothes,Do not bring valuables and remove jewelry
[2023-05-17 20:55] VITALS: BP 120/76; PULSE 80; RESP 16; TEMP 37.2; O2SAT 93
[2023-05-17] MEDS: SENNOSIDES 8.6 MG TABLET 17.2 MG PO (22:11)
[2023-05-18] MEDS: OXYCODONE IR 10 MG TABLET PO ×3 (05:24→17:47)
[2023-05-18] MEDS: ACETAMINOPHEN 325 MG TABLET 650 MG PO ×3 (05:24→17:46)
[2023-05-18 08:00] VITALS: BP 130/86; PULSE 70; RESP 18; TEMP 36.8; O2SAT 94
--- NOTE | 2023-05-18 08:05 | PM.PNPO.1 ---
Subjective Subjective Date Patient Seen: 05/18/23 Time Patient Seen: 08:05 Interval history: Pt sitting up comfortably in a chair. He is having some difficulty getting help at home; he has a daughter who is available, but she has balance issues and will not be able to help steady him. He has some friends who can help sporadically. He would like to discuss the possibility of going to a rehab facility. He denies headache or visual changes. He c/o back pain, denies leg pain. Exam Vital Signs (past 8 hours): Oxygen Delivery Method Room Air Oxygen Flow Rate 0 Narrative Exam Narrative: 5/5 strength in hip flexors, quadiceps, hamstrings, DF, PF, EHL bilaterally. Sensation to light touch intact throughout BLE. Calves soft, compressible, nontender and without palpable cords or masses. Dressing placed intraoperatively is CDI. [facility] Medical History Atrial fibrillation (03/12/14) Chronic cholecystitis COPD (chronic obstructive pulmonary disease) Esophageal dysmotility Essential hypertension (11/16/17) History of cardioversion History of COVID-19 (~2020) Hyperlipidemia Hypothyroidism Paroxysmal atrial fibrillation PTSD (post-traumatic stress disorder) 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/17) Type 2 diabetes mellitus without complication (11/16/17) Unspecified asthma (06/08/11) Surgical History H/O vasectomy History of arthroscopy of right shoulder History of carpal tunnel repair History of knee replacement Hx of arthroscopy of left knee Hx of arthroscopy of right knee Hx of bilateral cataract extraction Hx of eye surgery Hx of fusion of cervical spine (2017) Hx of shoulder surgery Status post cholecystectomy Status post hernia repair Family History Mother Hypertension Gallstones Father Hypertension Cancer Grandmother Hypertension Heart disease Cancer Social History marital status: number of children: 1 household members: none lives independently: Yes caregiver/support person: No housing: house pets and animals: No education level: college occupational status: other current occupational exposures/hazards: No 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 Will ask CM to discuss SNF or other options w/ pt. Plan to d/c tomorrow. (2) Type 2 diabetes mellitus with hyperglycemia: Assessment and Plan narrative: No glucose check since day of surgery; will order fingersticks. Postoperative Procedures: Procedures Operation Date: 05/16/23 12:15 Actual Procedure Side Surgeon p L3-4 TLIF Kenya Chow MD Postoperative day: 2 Quality VTE Deep Vein Thrombosis/Pulmonary Embolism Present on Admission: No
[2023-05-18] MEDS: DOCUSATE 100 MG CAPSULE PO ×2 (10:44→22:23)
[2023-05-18] MEDS: glipiZIDE 5 MG TABLET PO ×2 (10:44→22:23)
--- NOTE | 2023-05-18 11:10 | PT.IPTN ---
Current Diagnoses Type 2 diabetes mellitus with hyperglycemia (05/16/23) Spondylosis without myelopathy or radiculopathy, lumbar region (05/16/23) Spinal stenosis, lumbar region with neurogenic claudication (05/16/23) Arthrodesis status (05/16/23) Surgery Performed Operation Date: 05/16/23 12:15 Actual Procedures p L3-4 TLIF - Kenya Chow MD Physical Therapy Treatment Note M2 PT-IP Current Condition Start: 05/16/23 15:08 Freq: NEEDED Status: Active Protocol: Document 05/17/23 13:25 AB (Rec: 05/17/23 17:00 AB [id number]) Physical Therapy Current Condition Current Condition Evaluation Date 05/17/23 Treatment Diagnosis s/p L3-4 TLIF; difficulty in walking Onset Date 05/16/23 M3 PT-IP Subjective Start: 05/16/23 15:08 Freq: NEEDED Status: Active Protocol: Document 05/18/23 11:26 TS (Rec: 05/18/23 11:40 TS [id number]) Subjective Physical Therapy Visit Type Type Treatment Note Visit Start Time 11:10 Visit Stop Time 11:25 Total Visit Minutes 15 Number of CHEMICAL ENGINEERING INTERN Visits 1 Physical Therapy Visit Comments Patient Comments agreeable to do PT Therapy Pain Assessment Pain When Pain Assessed At Rest Pain Present Pain Present Pain Reported M4 PT-IP Mobility and Gait Start: 05/16/23 15:08 Freq: NEEDED Status: Active Protocol: Document 05/18/23 11:26 TS (Rec: 05/18/23 11:40 TS [id number]) PT-Transfer Assessment Sit to and From Stand Sit to and from Stand Minimal Assistance Equipment Transfer Assistive Device Gait Belt,Front Wheeled Walker Orthotic/Prosthetic Devices or Brace: No Comments Mobility Comments Sit to stand Sylvie for posterior lean with FWW, required cues for feet underneath him. Pt ambulated ~ 175' SBA with FWW step thru gait, no buckling or LOB. He performed stairs x1 with a platform step CGA, no buckling or LOB. Pt was left in chair with call light nearby, all need met. Gait Assessment Gait Gait Assistance Required: Standby Assistance Distance (Feet) 175 Able to Maintain Weight Bearing Status Yes During Gait Assistive Devices Assistive Device Gait Belt,Front Wheeled Walker Orthotic/Prosthetic Devices or Brace: No Gait Deviations General Gait Pattern Decreased Stride Length, Decreased Feet Clearance Factors Limiting Gait Function Factors Limiting Gait Function Decreased Activity Tolerance, Decreased Strength,Limited Range of Motion,Pain,Poor Balance,Poor Safety Awareness Comments Gait Comments See mobility comments. Stair Climbing Assessment Evaluation Level of Assist On Stairs Contact Guard Assistance Devices Stair Climbing Assistive Devices Front Wheel Walker Technique/Endurance Stair Climbing Direction Ascend and Descend Stair Climbing Technique Step to Step Number of Steps Climbed 1 Comments Stair Climbing Comments See mobility comments. PT-Balance Assessment Sitting Balance and Reactions Static Sitting Balance Ability Normal Dynamic Sitting Balance Ability Good Standing Balance and Reactions Static Standing Balance Ability Good Dynamic Standing Balance Ability Good Device Used FWW M5 PT-IP Objective Assessments Start: 05/16/23 15:08 Freq: NEEDED Status: Active Protocol: Document 05/17/23 13:25 AB (Rec: 05/17/23 17:00 AB [id number]) Orientation Orientation/Cognition Level of Alertness Alert Orientation Name,Place,Situation Safety Awareness Decreased Safety Awareness Memory Description Short Term Impaired Gross Range of Motion Lower Extremity ROM Assessment Within Functional Limits Strength Lower Extremity Strength Assessment Within Functional Limits Sensation Assessment Sensation Gross Sensation WNL Muscle Tone Muscle Tone WNL Yes M6 PT-IP Treatment Start: 05/16/23 15:08 Freq: NEEDED Status: Active Protocol: Document 05/18/23 11:26 TS (Rec: 05/18/23 11:40 TS [id number]) Physical Therapy Treatment Education Education Provided Precautions,Weight Bearing Status,Post-Op Packet,Safety M7 PT-IP Assessment and Plan Start: 05/16/23 15:08 Freq: NEEDED Status: Active Protocol: Document 05/18/23 11:26 TS (Rec: 05/18/23 11:40 TS [id number]) PT Summary Assessment and Plan Potential Rehabilitation Potential Good Summary Impairments Pain,ROM,Strength,Balance, Coordination,Sensation,Tone, Cognition,Bed Mobility, Transfers,Gait,Activity Tolerance Assessment Summary Pt is progressing well with his mobility. He performed sit to stand with Sylvie for posterior lean, pt has lift recliner at home. He progressed his gait to ~175' SBA with FWW and step thru gait. He performed platform step with FWW CGA with no buckling or LOB. Pt has 24/7 assist at home and all DME. He does not want HHPT. Spoke with primary PT compensation administrator today and she agreed with CHEMICAL ENGINEERING INTERN assessment of returning home with assist. Goals Bed Mobility Goal Independent Transfer Goal Independent,Front Wheeled Walker Gait Goal Independent,Front Wheel Walker Gait Distance 200 Other Goals up/down 1 step using FWW SBA Days to Meet Goals 5 Frequency of Treatment Frequency Of Treatment Twice a Day Treatment Plan Physical Therapy Treatment Plan Bed Mobility Training,Transfer Training,Gait Training, Therapeutic Exercise,Balance Retraining,Post Op Education, Discharge Planning,Hot or Cold Pack,Neuromuscular Re-ed, Coordination Retraining,Manual Therapy Precautions Lumbar Precautions Log Roll,No Twisting,Limit Bending,Lifting Restriction of 10 lbs,Gait Belt above Incisional Area Weight Bearing Status Weight Bearing Status Weight Bear as Tolerated Recommendations To Nursing Amount of Assist Needed 1 Person Assist Discharge Recommendations PT Discharge Recommendations Home with Assistance Transportation Needs at Discharge Private Vehicle
--- NOTE | 2023-05-18 12:20 | CM.DPC ---
DCP Continued: AUTOMOTIVE SALES ASSOCIATE reviewed EMR. Per PT/OT, patient is cleared to go home with assistance. Per PT verbal report, patient is doing well today. AUTOMOTIVE SALES ASSOCIATE entered room and reintroduced self and role. Patient reports he now does not have assistance at home, which is contradictory to what he said to this author yesterday. Patient now does not feel like he is able to go home alone due to pain when he stands up. AUTOMOTIVE SALES ASSOCIATE informed MARY Gaytan of patient's concerns. MARY Gaytan entered room and discussed d/c timeline with patient. MARY Gaytan agreed to have patient d/c tomorrow and stay one more night. Plan: patient will discharge tomorrow with assistance from friends. CM team will continue to follow closely. LUCIEN Masterson
--- NOTE | 2023-05-18 13:04 | OT.IPNOTE ---
Pt states going to stay another night. His daughter will come assist him at home especially for IADL needs. Pt insisting to have the FWW next to him and reminded pt to use call light for assist for now.
[2023-05-18] MEDS: polyethylene glycoL 3350 17 GM POWD.PACK PO (17:49)
[2023-05-18] MEDS: SENNOSIDES 8.6 MG TABLET 17.2 MG PO (22:23)
[2023-05-19 00:04] VITALS: BP 135/91; PULSE 57; RESP 20; TEMP 36.4; O2SAT 94
[2023-05-19] MEDS: OXYCODONE IR 10 MG TABLET PO ×2 (02:25→09:19)
[2023-05-19] MEDS: ACETAMINOPHEN 325 MG TABLET 650 MG PO (02:25)
[2023-05-19 07:00] VITALS: BP 118/71; PULSE 76; RESP 18; TEMP 37.1; O2SAT 95
--- NOTE | 2023-05-19 07:08 | P.DS_ITS ---
History of Present Illness History of Present Illness Date Patient Seen: 05/19/23 Time Patient Seen: 07:08 Chief complaint: TLIF Narrative: Operative Date/Time/Diagnoses Date of procedure: 05/16/23 Time of procedure: 11:00 Pre-op diagnosis: 1. L3-4 spinal stenosis with neurogenic claudication 2. Lumbar spondylosis with radiculopathy Post-op diagnosis: same Procedure & Clinicians Procedure: 1. L3-4 Postero-lateral and posterior interbody fusion 2. L3-4 interbody cage placement. 3. L3-4 decompressive laminectomy with bilateral facetecomies 4. L3-4 Posterior non-segmental instrumentation 5. [place] of bone marrow from iliac crest 6. Utilization of microsurgical technique and operating microscope Same procedure as scheduled: Yes Indications: Patient has been having chronic back pain and worsening lumbar radiculopathy and symptoms of neurogenic claudication. Patient failed multiple conservative management with worsening pain weakness and numbness in his lower extremity.? Patient has been having difficulty performing activity of daily living.? After discussing risks benefits of treatment options, patient elected proceed with surgery. Surgeon: Kenya Chow Visual Merchandise Manager: Felicity Parada Click Yes if Unassisted: No Anesthesia Type: General Operative Notes Closure Type: primary Specimen(s): none sent Prosthetic devices, grafts, tissues, transplants, or devices: Globus revolve screws, Rise cage Estimated Blood Loss (mL): 150 Blood products transfused: none Discharge Providers Provider Date of admission: 05/16/23 10:03 Discharge Date: 05/19/23 Primary care physician: Tripp Spears MD Consults: 05/09/23 09:30 Consult to Peoplesoft Functional Analyst Routine Comment: -does not have help @ DC 05/16/23 14:25 Consult to Occupational Therapy Evaluate & Treat Comment: Physician Instructions: Evaluate and treat Consult to Physical Therapy Evaluate & Treat Comment: Physician Instructions: Evaluate and Treat 05/18/23 08:04 Consult to Discharge Planning Routine Comment: pt would like to discuss SNF options Discharge provider: Natali Flood PA-C Summary Hospital Course Discharge Diagnosis: L3-4 spinal stenosis with neurogenic claudication, Lumbar spondylosis with radiculopathy; s/p lumbar fusion Hospital Course: Mr Moreland's hospital course was remarkable for slow progress w/ PT. ON the morning of POD# 3 he was feeling well and wanted to go home. He was doing better with mobility than he had anticipated and felt that he could discharge with his daughter, who does have some balance issues but should be able to help him. He was eating and voiding without difficulty, and his pain was well- controlled with oral medication. Exam Vital Signs (past 8 hours): - 05/19/23 00:04 Temperature 97.5 F L Pulse Rate 57 L Respiratory Rate 20 Blood Pressure 135/91 H Pulse Oximetry 94 Oxygen Flow Rate 0 Oxygen Delivery Method Room Air Oxygen Flow Rate 0 Narrative Exam Narrative: 5/5 strength in hip flexors, quadriceps, hamstrings, DF, PF, EHL bilaterally. Sensation to light touch intact throughout BLE. Calves soft, compressible, nontender and without palpable cords or masses. Dressing placed intraoperatively is CDI. [facility] Medical History Atrial fibrillation (03/12/14) Chronic cholecystitis COPD (chronic obstructive pulmonary disease) Esophageal dysmotility Essential hypertension (11/16/17) History of cardioversion History of COVID-19 (~2020) Hyperlipidemia Hypothyroidism Paroxysmal atrial fibrillation PTSD (post-traumatic stress disorder) 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/17) Type 2 diabetes mellitus without complication (11/16/17) Unspecified asthma (06/08/11) Surgical History H/O vasectomy History of arthroscopy of right shoulder History of carpal tunnel repair History of knee replacement Hx of arthroscopy of left knee Hx of arthroscopy of right knee Hx of bilateral cataract extraction Hx of eye surgery Hx of fusion of cervical spine (2017) Hx of shoulder surgery Status post cholecystectomy Status post hernia repair Family History Mother Hypertension Gallstones Father Hypertension Cancer Grandmother Hypertension Heart disease Cancer Social History marital status: number of children: 1 household members: none lives independently: Yes caregiver/support person: No housing: house pets and animals: No education level: college occupational status: other current occupational exposures/hazards: No 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 Discharge Plan Discharge Plan Patient Disposition: Home Discharge orders & Medications Prescriptions: New oxycodone 5 mg tablet 5 mg PO Q4-6H PRN (Reason: pain (scale score 4-6)) Qty: 60 0RF docusate sodium 100 mg Capsule 100 mg PO BID PRN (Reason: constipation) Qty: 60 1RF acetaminophen 325 mg Tablet 650 mg PO Q6H PRN (Reason: Fever/Mild Pain (1-3)) Qty: 240 0RF hydroxyzine pamoate 25 mg Capsule 25 mg PO Q4HR PRN (Reason: muscle spasm) Qty: 90 0RF Continued (DME) blood-glucose meter Misc See Rx Instructions .ROUTE .MEDSUPPLY Qty: 1 0RF Rx Instructions: As directed (DME) Blood Glucose Test Strip See Rx Instructions .ROUTE .MEDSUPPLY Qty: 100 3RF Rx Instructions: Use to check 1-2x a day for blood sugar (DME) lancets Misc See Rx Instructions .ROUTE .MEDSUPPLY Qty: 100 0RF Rx Instructions: Use to check blood sugars 1-2x a day lorazepam 0.5 mg tablet 0.5 mg PO BID PRN (Reason: anxiety) Qty: 60 0RF (DME) Disabled Parking See Rx Instructions .ROUTE .MEDSUPPLY Qty: 1 0RF Rx Instructions: Patient qualifies for disabled parking as per the attached form. glipizide 5 mg tablet 5 mg PO BID Qty: 180 3RF acetaminophen 500 mg Tablet 500 mg PO DAILY PRN (Reason: Pain) Follow up/Referrals: Kenya Chow MD [Physician] - As previously scheduled (Follow up with Dr Chow on 05/26/2023 @ 10:30 am at [facility] office in [place].) Tripp Spears MD [Primary Care Provider] - Diet/Activity/Treatments Diet: Diet as Tolerated Activity: No deep bending or twisting at the waist. No lifting more than 10 pounds. Cold/Heat Therapy: Heating pad to low back as needed for pain. Skin/Wound/Dressing Care Report to your healthcare provider any signs of infection, such as:: chills, fever, night sweats, unusual drainage and unusual redness Dressing: May shower; keep dressing as dry as possible. If dressing becomes wet or dirty, may remove and replace with clean, dry gauze. No bathing or otherwise soaking incisions. Do not apply any creams, lotions, or ointments to incisions. Visit Report/Discharge Packet Instructions: DI for Prescription Opioid Use, DI for Transforaminal Lumbar Interbody Fusion Stand Alone Forms: Patient Portal/API, Stroke Signs & Symptoms, Surgery Discharge Discharge Data Primary Care Provider: Tripp Spears Quality VTE Deep Vein Thrombosis/Pulmonary Embolism Present on Admission: No
[2023-05-19] MEDS: glipiZIDE 5 MG TABLET PO (09:19)
[2023-05-19] MEDS: DOCUSATE 100 MG CAPSULE PO (09:19)
--- NOTE | 2023-05-19 09:56 | PT.IPTN ---
Current Diagnoses Type 2 diabetes mellitus with hyperglycemia (05/16/23) Spondylosis without myelopathy or radiculopathy, lumbar region (05/16/23) Spinal stenosis, lumbar region with neurogenic claudication (05/16/23) Arthrodesis status (05/16/23) Surgery Performed Operation Date: 05/16/23 12:15 Actual Procedures p L3-4 TLIF - Kenya Chow MD Physical Therapy Treatment Note M2 PT-IP Current Condition Start: 05/16/23 15:08 Freq: NEEDED Status: Discharge Protocol: Document 05/17/23 13:25 AB (Rec: 05/17/23 17:00 AB [id number]) Physical Therapy Current Condition Current Condition Evaluation Date 05/17/23 Treatment Diagnosis s/p L3-4 TLIF; difficulty in walking Onset Date 05/16/23 M3 PT-IP Subjective Start: 05/16/23 15:08 Freq: NEEDED Status: Discharge Protocol: Document 05/19/23 09:36 KS (Rec: 05/19/23 12:51 KS [id number]) Subjective Physical Therapy Visit Type Type Treatment Note Visit Start Time 09:36 Visit Stop Time 09:56 Total Visit Minutes 20 Number of DISABILITY CASE MANAGER Visits 2 Physical Therapy Visit Comments Patient Comments agreeable to do PT M4 PT-IP Mobility and Gait Start: 05/16/23 15:08 Freq: NEEDED Status: Discharge Protocol: Document 05/19/23 09:36 KS (Rec: 05/19/23 12:51 KS [id number]) PT-Transfer Assessment Sit to and From Stand Sit to and from Stand Contact Guard Assistance,1 Person Assistance,Use of Upper Extremities Equipment Transfer Assistive Device Gait Belt,Front Wheeled Walker Orthotic/Prosthetic Devices or Brace: No Transfers Transfer Destination Chair Transfer Technique ambulated Transfer Ability Level of Assist Standby Assistance,Contact Guard Assistance Comments Mobility Comments Pt sitting in chair upon arrival, CGA for sit<>stand w/ FWW, pt ambulated 100 ft w/ FWW SBA and returned to chair SBA. Able to use BUE for slow descent. Recalls 3/3 precautions. Gait Assessment Gait Gait Assistance Required: Standby Assistance Distance (Feet) 100 Assistive Devices Assistive Device Gait Belt,Front Wheeled Walker Orthotic/Prosthetic Devices or Brace: No Gait Deviations General Gait Pattern Decreased Stride Length, Decreased Feet Clearance Factors Limiting Gait Function Factors Limiting Gait Function Decreased Activity Tolerance, Decreased Strength,Limited Range of Motion,Pain,Poor Balance,Poor Safety Awareness Comments Gait Comments No LOB PT-Balance Assessment Sitting Balance and Reactions Static Sitting Balance Ability Normal Dynamic Sitting Balance Ability Good Standing Balance and Reactions Static Standing Balance Ability Good Dynamic Standing Balance Ability Good Device Used FWW M5 PT-IP Objective Assessments Start: 05/16/23 15:08 Freq: NEEDED Status: Discharge Protocol: Document 05/17/23 13:25 AB (Rec: 05/17/23 17:00 AB [id number]) Orientation Orientation/Cognition Level of Alertness Alert Orientation Name,Place,Situation Safety Awareness Decreased Safety Awareness Memory Description Short Term Impaired Gross Range of Motion Lower Extremity ROM Assessment Within Functional Limits Strength Lower Extremity Strength Assessment Within Functional Limits Sensation Assessment Sensation Gross Sensation WNL Muscle Tone Muscle Tone WNL Yes M6 PT-IP Treatment Start: 05/16/23 15:08 Freq: NEEDED Status: Discharge Protocol: Document 05/19/23 09:36 KS (Rec: 05/19/23 12:51 KS [id number]) Physical Therapy Treatment Education Education Provided Precautions,Weight Bearing Status,Post-Op Packet,Safety M7 PT-IP Assessment and Plan Start: 05/16/23 15:08 Freq: NEEDED Status: Discharge Protocol: Document 05/19/23 09:36 KS (Rec: 05/19/23 12:51 KS [id number]) PT Summary Assessment and Plan Potential Rehabilitation Potential Good Summary Impairments Pain,ROM,Strength,Balance, Coordination,Sensation,Tone, Cognition,Bed Mobility, Transfers,Gait,Activity Tolerance Progress Towards Goals Progressing Toward Goals Assessment Summary Pt BA to CGA throughout treatment today and able to ambulate 100 ft w/ FWW. Has FWW at home, demosntrated good safety awareness, proper technique w/ transfer, and recalls 3/3 precautions. Has daughter who will assist him at home. Goals Bed Mobility Goal Independent Transfer Goal Independent,Front Wheeled Walker Gait Goal Independent,Front Wheel Walker Gait Distance 200 Other Goals up/down 1 step using FWW SBA Days to Meet Goals 5 Frequency of Treatment Frequency Of Treatment Twice a Day Treatment Plan Physical Therapy Treatment Plan Bed Mobility Training,Transfer Training,Gait Training, Therapeutic Exercise,Balance Retraining,Post Op Education, Discharge Planning,Hot or Cold Pack,Neuromuscular Re-ed, Coordination Retraining,Manual Therapy Precautions Lumbar Precautions Log Roll,No Twisting,Limit Bending,Lifting Restriction of 10 lbs,Gait Belt above Incisional Area Weight Bearing Status Weight Bearing Status Weight Bear as Tolerated Recommendations To Nursing Amount of Assist Needed 1 Person Assist Discharge Recommendations PT Discharge Recommendations Home with Assistance Transportation Needs at Discharge Private Vehicle
--- NOTE | 2023-05-19 10:26 | PC.NURSE ---
Dressing to lower back is cdi. Given 10mg of po oxycodone and helpful with discomfort. Patient is ambulating well and will be going home when his daughter arrives soon.
== END 2023-05-19 11:08 | disposition home or self-care (01) | DRG 454 ==
PROVIDERS: Admitting Provider Orthopaedic Surgery Orthopaedic Surgery of the Spine; Family Provider Internal Medicine; PCP Internal Medicine; Referring Provider Orthopaedic Surgery Orthopaedic Surgery of the Spine; Visit Provider Orthopaedic Surgery Orthopaedic Surgery of the Spine
PROC: 0SG00AJ Fusion of Lumbar Vertebral Joint with Interbody Fusion Device, Posterior Approach, Anterior Column, Open Approach (ICD-10-PCS; principal; 2023-05-16 12:15)
DX: M48.062 Spinal stenosis, lumbar region with neurogenic claudication (principal); G96.11 Dural tear; M47.26 Other spondylosis with radiculopathy, lumbar region; E11.65 Type 2 diabetes mellitus with hyperglycemia; Z79.84 Long term (current) use of oral hypoglycemic drugs
CPT/HCPCS: 72100; 76000; 82962; 97116; 97162; 97165; 97530; 97535; C1713; C9290; J0171; J0330; J0690; J1100; J1170; J2405; J2704; J3010

== ENCOUNTER 2023-05-21 13:17 | Emergency (ER) | payer MEDICARE, BC, SELFPAY ==
[2023-05-16 10:11] VITALS: BMI 26.4
[2023-05-21] VITALS (11 sets, daily range): BP systolic 132–141; BP diastolic 83–98; PULSE 75–94; RESP 16–23; TEMP 37.1; O2SAT 94–97; BMI 26.4
--- NOTE | 2023-05-21 13:58 | DI.RAD.S_ITS ---
PROCEDURE: XR CHEST 1V INDICATIONS: chest pain TECHNIQUE: One view of the chest was acquired. COMPARISON: [facility], CR, XR CHEST 1V, 09/19/2021, 12:14. FINDINGS: Surgical changes and devices: None. Lungs and pleura: Lungs are clear. No pleural effusions or pneumothorax. Mediastinum: Mediastinal contours appear normal. Heart size is normal. Bones and chest wall: No suspicious bony lesions. Overlying soft tissues appear unremarkable. IMPRESSION: No acute cardiopulmonary abnormalities or focal airspace disease. Dictated by: Jerman Lunsford M.D. on 05/21/2023 at 13:14 Approved by: Jerman Lunsford M.D. on 05/21/2023 at 13:22
--- NOTE | 2023-05-21 14:21 | PC.NURSE ---
Pt arrives in no apparent distress. Reports hiccups x 4 days. Recent ortho spine surgery with Dr. Massey. Pt was d/c from inpatient stay at [facility] with ongoing hiccups. Pt states he was told the hiccups would likely resolve on their own. Pt reports no back pain and no complications from recent spine surgery.
[2023-05-21 14:22] LABS: Add Manual Diff / Slide Review NO; Basophils Absolute Auto 0 /uL (0-100); Basophils Percent Auto 0.6 % (0-2); Eosinophils Absolute Auto 200 /uL (0-450); Eosinophils Percent Auto 2.7 % (2-4); Hematocrit 40.4 % (41-53); Hemoglobin 14.4 g/dL (13.5-17.5); Lymphocytes Absolute Auto 900 /uL (1100-4500); Lymphocytes Percent Auto 15.4 % (25-40); Mean Corpuscular HGB Conc 35.6 % (30-36); Mean Corpuscular Hemoglobin 35.1 PG (26-34); Mean Corpuscular Volume 98.5 fL (80-100); Monocytes Absolute Auto 800 /uL (0-900); Monocytes Percent Auto 13.9 % (3-14); Neutrophils Absolute Auto 4100 /uL (1500-7000); Neutrophils Percent Auto 67.4 % (50-75); Platelet Count 244 X10^3/uL (150-400); Red Cell Distribution Width 13.3 % (11.6-14.8); White Blood Cell Count 6.1 X10^3/uL (4.5-11.0)
[2023-05-21 14:35] LABS: Alanine Aminotransferase 38 IU/L (<50); Albumin Globulin Ratio 1.4 (1.0-2.8); Alkaline Phosphatase 99 U/L (38-126); Aspartate Aminotransferase 43 IU/L (17-59); BUN Creatinine Ratio 23.9 (6-22); Bilirubin Total 1.5 mg/dL (0.2-1.3); Blood Urea Nitrogen 17 mg/dL (9-20); Carbon Dioxide 26 mmol/L (22-32); Chloride 100 mmol/L (98-107); Creatine Kinase 59 U/L (55-170); Estimated Glomerular Filt Rate > 60 mL/min (>60); Globulin 2.9 g/dL (1.7-4.1); Glucose 154 mg/dL (80-110); HEMOLYSIS < 15 (0-50); Lipase 22 U/L (23-300); Potassium 3.8 mmol/L (3.4-5.1); Sodium 134 mmol/L (137-145); Total Protein 6.9 g/dL (6.3-8.2)
[2023-05-21 14:43] LABS: Appearance Urine UA CLEAR; Bilirubin Urine UA 1+ (NEGATIVE); Glucose Urine UA NEGATIVE (Negative); Ketones Urine UA NEGATIVE (NEGATIVE); Leukocyte Esterase Urine UA NEGATIVE (NEGATIVE); Nitrite Urine UA NEGATIVE (Negative); Occult Blood Urine UA NEGATIVE (Negative); Protein Urine UA TRACE (Negative); Specific Gravity Urine UA >=1.030 (1.000-1.035); pH Urine UA 5.5 (4.5-8.0)
[2023-05-21 14:46] LABS: NT-proBNP (BNP-Adult 18+) 46 pg/mL (<450); Troponin I < 0.012 ng/mL (0.01-0.034)
[2023-05-21 14:55] LABS: Bacteria Urine None Seen; Color Urine UA Dark Yellow; Culture Indicated Urine Cult Not Indicated; Hyaline Casts Urine 0-1/LPF; Ictotest Urine Negative (Negative); RBC Urine 0-1/HPF (0-5/HPF); Squamous Epithelial Cell Urine 0-1 /HPF (0-5/HPF); WBC Urine 0-1/HPF (0-5/HPF)
--- NOTE | 2023-05-21 15:53 | ED_ITS ---
HPI - SOB/Dyspnea General Chief Complaint: Shortness of Breath/Dyspnea Stated Complaint: Hiccups, trouble breathing, Time Seen by Provider: 05/21/23 15:53 Source: patient Mode of arrival: Ambulatory History of Present Illness HPI Narrative: Patient is a 73-year-old male history of chronic back pain, cervical spinal stenosis, diabetes, atrial fibrillation, asthma presenting today post up day number 5 after L3-L4 decompressive laminectomy with bilateral facetectomies on 05/16/2023 he was discharged from the hospital on 05/19/2023 presenting today with diaphragm spasm. He reports that he was out in the sun working seem to be doing well however he really feels like his diaphragm is spasming he feels like he can not take a deep breath. It was happening fairly regularly however after being in the emergency department for awhile he has not had any episodes for 45 minutes it is feeling better and like to go home. He is no numbness or tingling down his legs no painful or frequent urination he is not had any fevers he denies any cough. He has no actual chest pain. He is hungry and asking for sushi. Related Data Home Medications Medication Instructions Recorded Confirmed acetaminophen 500 mg tablet 500 mg PO DAILY PRN Pain 05/09/23 05/16/23 Previous Rx's Medication Instructions Recorded blood sugar diagnostic (Blood #100 ea 04/03/21 Glucose Test strips) blood-glucose meter #1 ea 04/03/21 lancets #100 ea 04/03/21 lorazepam 0.5 mg tablet 0.5 mg PO BID PRN anxiety #60 tabs 01/28/23 glipizide 5 mg tablet 5 mg PO BID #180 tabs 02/22/23 Disabled Parking #1 ea 03/17/23 acetaminophen 325 mg tablet 650 mg PO Q6H PRN Fever/Mild Pain 05/19/23 (1-3) #240 tabs docusate sodium 100 mg capsule 100 mg PO BID PRN constipation #60 05/19/23 caps hydroxyzine pamoate 25 mg capsule 25 mg PO Q4HR PRN muscle spasm #90 05/19/23 caps oxycodone 5 mg tablet 5 mg PO Q4-6H PRN pain (scale 05/19/23 score 4-6) #60 tabs Allergies Allergy/AdvReac Type Severity Reaction Status Date / Time metformin AdvReac Severe I had all Verified 05/09/23 09:05 the side effects Review of Systems Review of Systems ROS Unobtainable: All systems reviewed & are unremarkable except as noted in HPI and below Patient History Medical History Atrial fibrillation (03/12/14) Chronic cholecystitis COPD (chronic obstructive pulmonary disease) Esophageal dysmotility Essential hypertension (11/16/17) History of cardioversion History of COVID-19 (~2020) Hyperlipidemia Hypothyroidism Paroxysmal atrial fibrillation PTSD (post-traumatic stress disorder) 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/17) Type 2 diabetes mellitus without complication (11/16/17) Unspecified asthma (06/08/11) Surgical History H/O vasectomy History of arthroscopy of right shoulder History of carpal tunnel repair History of knee replacement Hx of arthroscopy of left knee Hx of arthroscopy of right knee Hx of bilateral cataract extraction Hx of eye surgery Hx of fusion of cervical spine (2017) Hx of shoulder surgery Status post cholecystectomy Status post hernia repair Family History Mother Hypertension Gallstones Father Hypertension Cancer Grandmother Hypertension Heart disease Cancer Social History marital status: number of children: 1 household members: none lives independently: Yes caregiver/support person: No housing: house pets and animals: No education level: college occupational status: other current occupational exposures/hazards: No 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 [employer]: None leisure activities: fishing and other Smoking Status: Never smoker Tobacco: How many years used: 0 quit status: quit date established second hand exposure: Yes alcohol intake: current substance use type: does not use eating out: 1-3 times/week Type(s) of exercise: other and normal ROM and activity Smoking Status: Never smoker alcohol intake frequency: holidays/special occasions only Substance Use Type: does not use Exam Initial Vital Signs Initial Vital Signs: Vital Signs Temperature 98.7 F 05/21/23 13:21 Pulse Rate 94 H 05/21/23 13:21 Respiratory Rate 18 05/21/23 13:21 Blood Pressure 138/85 05/21/23 13:21 Pulse Oximetry 97 05/21/23 13:21 Oxygen Delivery Method Room Air 05/21/23 13:21 GENERAL: Alert very pleasant 73-year-old male HEENT: Head atraumatic,EOMI, pupils reactive, face symmetric, moist mucous membranes CARDIOVASCULAR: Regular rate and rhythm without murmurs, rubs or gallops. RESPIRATORY: Breath sounds equal bilaterally, no wheezes rales or rhonchi. ABDOMEN: Soft, nontender. Normoactive bowel sounds all 4 quadrants. No guarding or rebound. EXTREMITIES: Normal range of motion, no clubbing or edema. Neurovascularly intact NEUROLOGICAL: Alert and oriented x4. SKIN: Warm, dry, no laceration, no petechiae, no rashes or lesions. Course Orders Ordered: Discontinued Medications Al Hydrox/Mg Hydrox/Simethicone (Mag Hydrox/Alum/Simeth 30 Ml Udc) 30 ml PO NOW ONE Stop: 05/21/23 17:20 Last Admin: 05/21/23 17:28 Dose: 30 ml Documented By: MARITZA Vital Signs Vital signs: Vital Signs - 8 hr 05/21/23 13:21 05/21/23 13:34 05/21/23 14:00 Temperature 98.7 F Pulse Rate 94 H 84 83 Respiratory Rate 18 Blood Pressure 138/85 Pulse Oximetry 97 95 96 Oxygen Delivery Method Room Air 05/21/23 14:28 05/21/23 14:28 05/21/23 14:30 Temperature Pulse Rate 85 84 Respiratory Rate 16 18 Blood Pressure 138/83 Pulse Oximetry 95 95 Oxygen Delivery Method 05/21/23 14:31 05/21/23 14:31 05/21/23 15:00 Temperature Pulse Rate 83 Respiratory Rate 22 Blood Pressure 132/86 133/98 H Pulse Oximetry 95 Oxygen Delivery Method 05/21/23 15:00 05/21/23 15:30 05/21/23 15:30 Temperature Pulse Rate 84 86 Respiratory Rate 23 19 Blood Pressure 141/94 H Pulse Oximetry 95 94 Oxygen Delivery Method 05/21/23 16:00 05/21/23 16:00 Temperature Pulse Rate 79 Respiratory Rate 16 Blood Pressure 138/86 Pulse Oximetry 96 Oxygen Delivery Method MDM - SOB/Dyspnea Lab Data 05/21/23 14:16 05/21/23 14:16 Labs: Lab Results 05/21/23 05/21/23 05/21/23 Range/Units 14:16 14:16 14:16 WBC 6.1 (4.5-11.0) X10^3/uL RBC 4.10 L (4.5-5.9) X10^6/uL Hgb 14.4 (13.5-17.5) g/dL Hct 40.4 L (41-53) % MCV 98.5 (80-100) fL MCH 35.1 H (26-34) PG MCHC 35.6 (30-36) % RDW 13.3 (11.6-14.8) % Plt Count 244 (150-400) X10^3/uL Neut % (Auto) 67.4 (50-75) % Lymph % (Auto) 15.4 L (25-40) % [place] % (Auto) 13.9 (3-14) % Eos % (Auto) 2.7 (2-4) % Baso % (Auto) 0.6 (0-2) % Neut # (Auto) 4100 (1073-9762) /uL Lymph # (Auto) 900 L (3897-0495) /uL [place] # (Auto) 800 (0-900) /uL Eos # (Auto) 200 (0-450) /uL Baso # (Auto) 0 (0-100) /uL D-Dimer 969 H (<500) ng/ml Sodium 134 L (137-145) mmol/L Potassium 3.8 (3.4-5.1) mmol/L Chloride 100 (98-107) mmol/L Carbon Dioxide 26 (22-32) mmol/L BUN 17 (9-20) mg/dL Creatinine 0.71 (0.66-1.25) mg/dL Estimated GFR > 60 (>60) mL/min BUN/Creatinine Ratio 23.9 H (6-22) Glucose 154 H (80-110) mg/dL Calcium 9.0 (8.4-10.2) mg/dL Total Bilirubin 1.5 H (0.2-1.3) mg/dL AST 43 (17-59) IU/L ALT 38 (<50) IU/L Alkaline Phosphatase 99 (38-126) U/L Total Creatine Kinase 59 (55-170) U/L Troponin I < 0.012 (0.01-0.034) ng/mL NT-Pro-B Natriuret Pep 46 (<450) pg/mL Total Protein 6.9 (6.3-8.2) g/dL Albumin 4.0 (3.5-5.0) g/dL Globulin 2.9 (1.7-4.1) g/dL Albumin/Globulin Ratio 1.4 (1.0-2.8) Lipase 22 L (23-300) U/L Urine Color Urine Appearance Urine pH (4.5-8.0) Ur Specific [place] (1.000-1.035) Urine Protein (Negative) Urine Glucose (UA) (Negative) g/dL Urine Ketones (NEGATIVE) Urine Occult Blood (Negative) Urine Nitrate (Negative) Urine Bilirubin (NEGATIVE) Ur Bilirubin Confirm (Negative) Urine Urobilinogen (0.2) E.U./dL Ur Leukocyte Esterase (NEGATIVE) Urine RBC (0-5/HPF) Urine WBC (0-5/HPF) Ur Squamous Epith Cells (0-5/HPF) Urine Bacteria (None) Hyaline Casts (None) Ur Culture Indicated? 05/21/23 Range/Units 14:28 WBC (4.5-11.0) X10^3/uL RBC (4.5-5.9) X10^6/uL Hgb (13.5-17.5) g/dL Hct (41-53) % MCV (80-100) fL MCH (26-34) PG MCHC (30-36) % RDW (11.6-14.8) % Plt Count (150-400) X10^3/uL Neut % (Auto) (50-75) % Lymph % (Auto) (25-40) % [place] % (Auto) (3-14) % Eos % (Auto) (2-4) % Baso % (Auto) (0-2) % Neut # (Auto) (0244-0657) /uL Lymph # (Auto) (9655-1580) /uL [place] # (Auto) (0-900) /uL Eos # (Auto) (0-450) /uL Baso # (Auto) (0-100) /uL D-Dimer (<500) ng/ml Sodium (137-145) mmol/L Potassium (3.4-5.1) mmol/L Chloride (98-107) mmol/L Carbon Dioxide (22-32) mmol/L BUN (9-20) mg/dL Creatinine (0.66-1.25) mg/dL Estimated GFR (>60) mL/min BUN/Creatinine Ratio (6-22) Glucose (80-110) mg/dL Calcium (8.4-10.2) mg/dL Total Bilirubin (0.2-1.3) mg/dL AST (17-59) IU/L ALT (<50) IU/L Alkaline Phosphatase (38-126) U/L Total Creatine Kinase (55-170) U/L Troponin I (0.01-0.034) ng/mL NT-Pro-B Natriuret Pep (<450) pg/mL Total Protein (6.3-8.2) g/dL Albumin (3.5-5.0) g/dL Globulin (1.7-4.1) g/dL Albumin/Globulin Ratio (1.0-2.8) Lipase (23-300) U/L Urine Color Dark yellow Urine Appearance Clear Urine pH 5.5 (4.5-8.0) Ur Specific [place] >=1.030 H (1.000-1.035) Urine Protein Trace H (Negative) Urine Glucose (UA) Negative (Negative) g/dL Urine Ketones Negative (NEGATIVE) Urine Occult Blood Negative (Negative) Urine Nitrate Negative (Negative) Urine Bilirubin 1+ H (NEGATIVE) Ur Bilirubin Confirm Negative (Negative) Urine Urobilinogen 2.0 H (0.2) E.U./dL Ur Leukocyte Esterase Negative (NEGATIVE) Urine RBC 0-1/hpf (0-5/HPF) Urine WBC 0-1/hpf (0-5/HPF) Ur Squamous Epith Cells 0-1 /hpf (0-5/HPF) Urine Bacteria None seen (None) Hyaline Casts 0-1/lpf (None) Ur Culture Indicated? Cult not indicated Urine Dip Bedside Urine Glucose Negative Bedside Urine Bilirubin + 1 Bedside Urine Ketone +/- 5 Urine Specific [place] 1.030 Bedside Urine Occult Blood - Negative Bedside Urine pH 6.0 Bedside Urine Protein +/- 15 Bedside Urine Urobilinogen +/- 1mg Bedside Urine Nitrite - Negative Bedside Urine Leukocytes - Negative Esterase Imaging Data Chest x-ray: Radiologist's Impression: PROCEDURE:? XR CHEST 1V ? INDICATIONS:? chest pain ? TECHNIQUE:? One view of the chest was acquired.? ? COMPARISON:? [facility], CR, XR CHEST 1V, 09/19/2021, 12:14. ? FINDINGS:? ? Surgical changes and devices:? None.? ? Lungs and pleura:? Lungs are clear.? No pleural effusions or pneumothorax.? ? Mediastinum:? Mediastinal contours appear normal.? Heart size is normal.? ? Bones and chest wall:? No suspicious bony lesions.? Overlying soft tissues appear unremarkable.? ? IMPRESSION:? No acute cardiopulmonary abnormalities or focal airspace disease. ? Dictated by: Jerman Lunsford M.D. on 05/21/2023 at 13:14 ? CT scan - chest: Radiologist's Impression: PROCEDURE:? CT ANGIO CHEST PE PROTOCOL ? INDICATIONS:? short of breath post op ? TECHNIQUE:? After the administration of intravenous contrast, 2 mm thick sections acquired from the pulmonary apices to the posterior costophrenic angles.? 3-dimensional maximum intensity projection (MIP) coronal and sagittal reformats were then acquired through the thorax.? For radiation dose reduction, the following was used:? automated exposure co ntrol, adjustment of mA and/or kV according to patient size.? ? COMPARISON:? None. ? FINDINGS:? Image quality:? Mildly degraded by respiratory motion inferiorly.? Diagnostic information is obtained..? ? Pulmonary arteries:? Pulmonary arteries are normal in size, and demonstrate no intraluminal filling defects to suggest central pulmonary embolism.? ? Lungs and pleura:? Small cluster of tree-in-bud nodules is seen at the posterolateral aspect of the right lower lobe (131/5).? Probable similar findings at the posterolateral left upper lobe.? No acute consolidation.? No pleural effusions or pneum othorax.? Central and peripheral airways are patent.? ? Mediastinum:? Heart size is normal, without pericardial effusion.? Moderate coronary artery calcifications.? No mediastinal or hilar adenopathy.? Thoracic aorta is normal in caliber and enhancement.? Esophagus is normal in caliber, without hiatal hernia.? ? Bones and chest wall:? No suspicious bony lesions.? Postsurgical changes partially included in the cervical spine.? Degenerative changes are seen in the thoracic spine.? Ribs and thoracic spine appear intact throughout.? Thyroid is unremarkable.? No axillary or supraclavicular adenopathy.? ? Abdomen:? Status post cholecystectomy.? Visualized upper abdominal solid organs appear normal in the early arterial phase of enhancement.? ? IMPRESSION:? 1. No acute pulmonary embolus.? 2. Small clusters of tree-in-bud nodularity in the lungs are likely due to nonspecific infectious or inflammatory process.? Approved by: Felton Yoo M.D. on 05/21/2023 at 17:08? ECG Data Interpretation: Normal sinus rhythm rate 82 MN interval 142 QRS [address] changes no T- wave inversions PVC noted MDM Narrative Medical decision making narrative: Patient is 73-year-old male postop laminectomy presenting today with hiccups. He reports that he feels like his diaphragm is spasming. He is having like some shortness of breath. At bedside I do see that he is actively having. He is not hypoxic or tachycardic. CT angio was done to rule out PE. EKG troponin, are also negative. There is no anemia ANANDA or electrolyte abnormality. No evidence of pneumonia. He has not having fever postop infection. No evidence of a surgery complication. He was given a GI cocktail some Maalox. He overall is feeling much better and would just like to go home. At this time I see no need for any further workup. Dr. 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 Discharge Plan Departure Patient Disposition: Home Clinical Impression: Atypical chest pain, Hiccup Instructions: DI for Atypical Chest Pain Activity Restrictions/Additional Instructions: *You have been diagnosed with atypical chest pain *What to do: At this time please take pain medications and muscle relaxers as needed. No evidence of a blood clot. *Continue to take medications as directed *Follow up with your primary care provider in 2-3 days or call [phone] *Return to ER if you should have increasing chest pain shortness of breath numbness tingling weakness loss of urine or any new, worsening or concerning symptoms Prescriptions: No Action (DME) blood-glucose meter Misc See Rx Instructions .ROUTE .MEDSUPPLY Qty: 1 0RF Rx Instructions: As directed (DME) Blood Glucose Test Strip See Rx Instructions .ROUTE .MEDSUPPLY Qty: 100 3RF Rx Instructions: Use to check 1-2x a day for blood sugar (DME) lancets Misc See Rx Instructions .ROUTE .MEDSUPPLY Qty: 100 0RF Rx Instructions: Use to check blood sugars 1-2x a day lorazepam 0.5 mg tablet 0.5 mg PO BID PRN (Reason: anxiety) Qty: 60 0RF (DME) Disabled Parking See Rx Instructions .ROUTE .MEDSUPPLY Qty: 1 0RF Rx Instructions: Patient qualifies for disabled parking as per the attached form. glipizide 5 mg tablet 5 mg PO BID Qty: 180 3RF acetaminophen 500 mg Tablet 500 mg PO DAILY PRN (Reason: Pain) acetaminophen 325 mg Tablet 650 mg PO Q6H PRN (Reason: Fever/Mild Pain (1-3)) Qty: 240 0RF docusate sodium 100 mg Capsule 100 mg PO BID PRN (Reason: constipation) Qty: 60 1RF hydroxyzine pamoate 25 mg Capsule 25 mg PO Q4HR PRN (Reason: muscle spasm) Qty: 90 0RF oxycodone 5 mg tablet 5 mg PO Q4-6H PRN (Reason: pain (scale score 4-6)) Qty: 60 0RF Referrals: Tripp Spears MD [Primary Care Provider] - Stand Alone Forms: Patient Portal/API
[2023-05-21 16:31] LABS: D Dimer 969 ng/ml (<500)
--- NOTE | 2023-05-21 16:39 | DI.CT.S_ITS ---
PROCEDURE: CT ANGIO CHEST PE PROTOCOL INDICATIONS: short of breath post op TECHNIQUE: After the administration of intravenous contrast, 2 mm thick sections acquired from the pulmonary apices to the posterior costophrenic angles. 3-dimensional maximum intensity projection (MIP) coronal and sagittal reformats were then acquired through the thorax. For radiation dose reduction, the following was used: automated exposure control, adjustment of mA and/or kV according to patient size. COMPARISON: None. FINDINGS: Image quality: Mildly degraded by respiratory motion inferiorly. Diagnostic information is obtained.. Pulmonary arteries: Pulmonary arteries are normal in size, and demonstrate no intraluminal filling defects to suggest central pulmonary embolism. Lungs and pleura: Small cluster of tree-in-bud nodules is seen at the posterolateral aspect of the right lower lobe (131/5). Probable similar findings at the posterolateral left upper lobe. No acute consolidation. No pleural effusions or pneumothorax. Central and peripheral airways are patent. Mediastinum: Heart size is normal, without pericardial effusion. Moderate coronary artery calcifications. No mediastinal or hilar adenopathy. Thoracic aorta is normal in caliber and enhancement. Esophagus is normal in caliber, without hiatal hernia. Bones and chest wall: No suspicious bony lesions. Postsurgical changes partially included in the cervical spine. Degenerative changes are seen in the thoracic spine. Ribs and thoracic spine appear intact throughout. Thyroid is unremarkable. No axillary or supraclavicular adenopathy. Abdomen: Status post cholecystectomy. Visualized upper abdominal solid organs appear normal in the early arterial phase of enhancement. IMPRESSION: 1. No acute pulmonary embolus. 2. Small clusters of tree-in-bud nodularity in the lungs are likely due to nonspecific infectious or inflammatory process. Approved by: Felton Yoo M.D. on 05/21/2023 at 17:08
[2023-05-21] MEDS: MAG HYDROX/ALUM/SIMETH 30 ML UDC PO (17:28)
== END 2023-05-21 17:36 | disposition home or self-care (01) ==
PROVIDERS: Emergency Provider Emergency Medicine; Family Provider Internal Medicine; PCP Internal Medicine
DX: R07.89 Other chest pain (principal); R06.6 Hiccough
CPT/HCPCS: 36415; 71045; 71275; 80053; 81001; 81003; 82550; 83690; 83880; 84484; 85025; 85379; 93005; 99284; Q9967

== ENCOUNTER → 2023-06-15 13:49 | Outpatient (CLI) | payer MEDICARE, BC, SELFPAY ==
[2023-05-16 10:11] VITALS: BMI 26.4
[2023-06-15 14:50] LABS: BUN Creatinine Ratio 15.1 (6-22); Blood Urea Nitrogen 14 mg/dL (9-20); Calcium 9.2 mg/dL (8.4-10.2); Carbon Dioxide 23 mmol/L (22-32); Chloride 109 mmol/L (98-107); Estimated Glomerular Filt Rate > 60 mL/min (>60); Glucose 125 mg/dL (80-110); HEMOLYSIS < 15 (0-50); Sodium 140 mmol/L (137-145)
[2023-06-15 15:50] LABS: Creatinine Urine Random 207.3 mg/dL
[2023-06-15 15:55] LABS: Microalbumi Creatinin Ratio Ur 4.3 ug/mg CR (<30); Microalbumin Urine Random 0.9 mg/dL (0-1.6)
[2023-06-16 05:16] LABS: x Labcorp Estim. Avg Glu (eAG) 146 mg/dL (.); x Labcorp Hemoglobin A1c 6.7 % (4.8-5.6)
== END ==
PROVIDERS: Family Provider Internal Medicine; PCP Internal Medicine; Referring Provider Internal Medicine; Visit Provider Internal Medicine
DX: I10 Essential (primary) hypertension (principal); E11.65 Type 2 diabetes mellitus with hyperglycemia; E11.9 Type 2 diabetes mellitus without complications
CPT/HCPCS: 36415; 80048; 82043; 82570; 83036

== ENCOUNTER → 2023-08-18 11:43 | Outpatient (CLI) | payer MEDICARE, BC, SELFPAY ==
[2023-05-16 10:11] VITALS: BMI 26.4
--- NOTE | 2023-08-18 | DI.MRI.S_ITS ---
PROCEDURE: MR SHOULDER LT WO CON INDICATIONS: ROTATOR CUFF TEAM TECHNIQUE: Noncontrast oblique coronal T2 fast spin echo with fat saturation, oblique sagittal T1 spin echo and T2 fast spin echo with fat saturation, axial T1 spin echo and T2 fast spin echo with fat saturation through the shoulder. COMPARISON: None. FINDINGS: Image quality: Excellent. Rotator cuff: Full-thickness rupture involving distal supraspinatus at its insertion on the humeral head is seen with up to 1.8 cm medial retraction of torn tendon fibers. Tendinosis and low-grade articular surface partial-thickness tear involving distal infraspinatus is seen. Low-grade intrasubstance partial-thickness tear involving distal subscapularis is also noted. Sagittal images demonstrate moderate supraspinatus muscle atrophy. Bones and bursae: No bone marrow contusions or fractures. Moderate acromioclavicular joint osteoarthritic changes are seen with joint space narrowing and downward osteophyte formation depressing the musculotendinous junction of supraspinatus. The acromion demonstrates conventional anatomy, without an os acromiale. Moderate amount of joint effusion and subacromial subdeltoid bursal fluid is seen. No gross intra-articular loose bodies. Capsule and soft tissues: There is signal abnormality and contour irregularity involving superior anterior labrum at 1 to 2 o'clock position suggestive of superior anterior labral tear. Similar signal abnormality and contour irregularity involving anterior inferior labrum at 5 to 6 o'clock position is also seen. The long head of the biceps tendon is markedly attenuated at the level of humeral head suggestive of moderate grade partial-thickness tear. The rotator interval appears normal, without fibrosis. The coracohumeral ligament is normal in thickness. IMPRESSION: 1. Full-thickness rupture of distal supraspinatus at its insertion on humeral head with up to 1.8 cm medial retraction of torn tendon fibers . Low-grade articular surface partial-thickness tear involving distal infraspinatus. Low-grade intrasubstance partial-thickness tear involving distal subscapularis. Moderate supraspinatus muscle atrophy. 2. Suggestion of moderate to high-grade partial-thickness tear involving proximal long head of biceps tendon. 3. Moderate acromioclavicular joint osteoarthritis. No fracture or dislocation. Moderate amount of joint effusion and subacromial subdeltoid bursal fluid. 4. Finding is suggestive of superior anterior labral tear at 1-2 o'clock position and anterior-inferior labral tear at 5 to 6 o'clock position. Dictated by: Anthony Collins M.D. on 08/18/2023 at 16:40 Approved by: Anthony Collins M.D. on 08/18/2023 at 16:44
== END ==
PROVIDERS: Family Provider Internal Medicine; PCP Internal Medicine; Referring Provider Orthopaedic Surgery; Visit Provider Orthopaedic Surgery
DX: M75.122 Complete rotator cuff tear or rupture of left shoulder, not specified as traumatic (principal); M62.512 Muscle wasting and atrophy, not elsewhere classified, left shoulder; S46.112A Strain of muscle, fascia and tendon of long head of biceps, left arm, initial encounter; M19.012 Primary osteoarthritis, left shoulder; M25.412 Effusion, left shoulder
CPT/HCPCS: 73221

== ENCOUNTER 2023-10-25 08:00 | Outpatient (RCR) | payer MEDICARE, BC, SELFPAY ==
[2023-05-16 10:11] VITALS: BMI 26.4
--- NOTE | 2023-09-09 17:59 | PT.OPPOC ---
Physical, Occupational & Speech Therapy At [facility] Current Diagnoses Other specified joint disorders, left shoulder (09/09/23) Visit Care Team Role Provider Type Tripp Spears MD Family Provider Physician Primary Care Provider Specialty: Internal Medicine Address: [address] [place] [address], [facility] [address], [place], [address] Email: [email or web address] Gavino Stratton MD Attending Provider Physician Referring Provider Specialty: Orthopedics Orthopedic Surgery Address: [address] [place] [address], [id number] Email: [email or web address] Plan Of Care PT-OP-T Assessment and Plan Start: 09/06/23 16:57 Freq: Status: Active Protocol: Document 09/09/23 09:48 LRN (Rec: 09/09/23 10:32 LRN [id number]) Physical Therapy Assessment Rehab Potential Rehabilitation Potential Good Evaluation Complexity Number of Personal Factors/Comorbidities 3 or More Number of Body Systems Impaired 3 Clinical Presentation at Evaluation Stable Impairments Impairments Activity Tolerance,Pain, Posture,Strength Goals Three Impairment Decreased function due to L shoulder pain Impairment UE Quickdash score 36 (20-39% impaired, score 20-39). Sharp pain rated 3/10. 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 LTG Duration 9 wks-11/11/23 Two Impairment L shoulder pain with functional mobility Impairment Pain with picking objects off the ground and with reaching out with arm to the side and with lowering the arm after reaching overhead. 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 LTG Duration 9 wks-11/11/23 One Impairment Pt lacks appropriate self care HEP. Short Term Goal (STG) Pt will be educated in self care for pain management STG Duration 1 wk-11/17/23 Fpc Goal (LTG) Pt will be educated in HEP of RC and scapular stabilizer strengthening ex's as well as core stabilization. 09/09/23: HEP: Active L shoulder ER (sit, sidelie, stand) and resistive ER (Lev1 TB issued) LTG Duration 9 wks-11/11/23 Assessment Summary Assessment Pt is a 73 yo male who is reportedly 4 wks s/p 3rd cortisone injection to the L shoulder, and imaging indicating extensive tearing of his L rotator cuff (subscap , infraspinatus, subscapularis ) and tearing of the superior anterior and anterior inferior labrum and long head of biceps tendon. He presents with a L shoulder painful arc and + drop arm test, indicating rotator cuff (RC) dysfunction, and to a lesser degree, a painful arc of the R shoulder. As expected he has trouble reaching behind his head to due RC dysfunction. Pt progress is expected to be hindered due to multiple tears in his rotator cuff, labrum and long head of biceps. He is expected to be also be limited by cervical restrictions associated to his reported cervical surgery history (fusion with cage in place). The pt will benefit from skilled physical therapy to improve the strength of his muscles around that support the rotator cuff and his scapular stabilizers, to maximize his L shoulder mobility and function. His rehab time may need to be extended due to the coming holiday schedules. Physical Therapy Plan Frequency and Duration Frequency of Treatment 2x/Week Duration of treatment (weeks) 9 Plan of Care Start Date 09/09/23 Plan of Care End Date 11/11/23 Therapeutic Interventions Therapeutic Interventions Home Exercise Program,Manual Therapy,Self-Care/Home Management,Soft Tissue Mobilization,Taping, Therapeutic Exercises Modalities Cold Pack/Ice Massage,Hot Packs Next Visit Focus/Plan Next Note Type Treatment Note Next Visit Plan POC: L RC and scapular stabilizer strengthening, STM- UT/L shoulder, MWM-active ROM w/scap stab, general strengthening (UBE), Education in self care pain management & HEP. Next: UBE, active or AA shoulder ROM strengthening, scap stabilizer strengthening, Pec stretch, STM L neck. Modalities of heat/ice to end if needed. Plan of Care Dates Plan of Care Start Date 09/09/23 Plan of Care End Date 11/11/23 Electronically Signed by: Darby Lewis, PT 09/10/23 1502 If you are in agreement with this Plan of Care, please return a signed and dated copy. I have reviewed this Plan of Care and certify that the skilled therapy services above are required to meet the patient?s needs. Physician Signature Date Printed Name and Credentials Clinical Instructor Signature Printed Name and Credentials
--- NOTE | 2023-09-09 17:59 | PT.OIE ---
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/17) Type 2 diabetes mellitus without complication (11/16/17) Unspecified asthma (06/08/11) Past Surgical History (Last Reviewed 05/21/23 @ 16:36 by Kristen Javier DO) H/O vasectomy History of arthroscopy of right shoulder History of carpal tunnel repair History of knee replacement Hx of arthroscopy of left knee Hx of arthroscopy of right knee Hx of bilateral cataract extraction Hx of eye surgery Hx of fusion of cervical spine (2017) Hx of shoulder surgery Status post cholecystectomy Status post hernia repair Visit Care Team Role Provider Type Tripp Spears MD Family Provider Physician Primary Care Provider Specialty: Internal Medicine Address: [address] [place] [address], [address], [address] Email: [email or web address] Gavino Stratton MD Attending Provider Physician Referring Provider Specialty: Orthopedics Orthopedic Surgery Address: [address] [place] [address], [id number] Email: Physical Therapy Initial Evaluation PT-OP-A Visit Information Start: 09/06/23 16:57 Freq: Status: Active Protocol: Document 09/09/23 09:48 LRN (Rec: 09/09/23 10:32 LRN [id number]) Out-Patient Physical Therapy Visit Information Visit Information Visit Type Initial Evaluation Visit Note Pt in KX Visit Start Time 09:48 Visit Stop Time 10:29 Total Visit Minutes 41 Visit Number 1 Evaluation Information Evaluation Date 09/09/23 Precautions Precautions Arthritis, Diabetes type II, Back pain. Cervical fusion at C3-C6; R distal clavicle resection, 2 Uni-knee arthroplasty, back surgery for wedge placed between L3, L4. PT-OP-B Current Condition Start: 09/06/23 16:57 Freq: Status: Active Protocol: Document 09/09/23 09:48 LRN (Rec: 09/09/23 10:32 LRN [id number]) Current Condition History of Current Condition Onset Date 6-7 months ago. Current Complaints Sharp pain in L shoulder with lowering of arm or reaching out. History of Current Condition Insidious onset of L shoulder pain and sometimes gets sharp pain in the shoulder. Has to use the R arm to help lift the shoulder. When lowering the arm gets a catch or tear. R shoulder is also sore, but doesn't have porter pains. States he has a tear in the L shoulder muscles per MRI. Prior Treatments and Tests [id number] of supraspinatus at its insertion on the humeral head, partial- thickness tear involving distal infraspinatus, and partial-thickness tear involving distal subscapularis . Capsule superior anterior labral and anterior inferior labral tear, long head of biceps tendon is suggestive of moderate grade partial- thickness tear. Cortisone injection 1 month ago at inferior posterior acromion process. Has had 3 total injection. Future Testing and Treatments Planned Cortisone injection in the back for LE pain. 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 Personal Factors Other Personal Factors That May Effect Extensive tearing of L Therapy/Recovery supraspinatus, infraspinatus, & subscapularis ms, labrum, and long head of biceps; Arthritis, Diabetes type II, Back pain. Cervical fusion at C3-C6. PT-OP-C Subjective Start: 09/06/23 16:57 Freq: Status: Active Protocol: Document 09/09/23 09:48 LRN (Rec: 09/09/23 10:32 LRN [id number]) Patient Questionnaires Quick Dash- Upper Extremity Quick Dash UE Score 36.36 Quick Dash UE Impairment 20 to 39% Impaired (Score 20- 39) OP-PT Pain Assessment Pain Assessment Grid Paper Pain Assessment Grid Completed Yes Location L shoulder Pain Location Details Superior and anterior L shoulder Intensity 3 Scale Used Numeric (0 - 10) Description Sharp,Shooting Frequency Intermittent Variations/Patterns With movement, reaching. Pain Aggravating Factors Changing Position Other Pain Aggravating Factors Reaching, change position in bed Pain Alleviating Factors Medication Other Pain Alleviating Factors Alleve, Tylenol PT-OP-E Functional Tests Start: 09/06/23 16:57 Freq: Status: Active Protocol: Document 09/09/23 09:48 LRN (Rec: 09/09/23 10:32 LRN [id number]) Functional Tests Apley's Scratch Test Action 1- Left scapula Action 1- Right scapula Action 2- Left T3 Action 2- Right C7 Action 3- Left L4 Action 3- Right L4 PT-OP-H Neuro Start: 09/06/23 16:57 Freq: Status: Active Protocol: Document 09/09/23 09:48 LRN (Rec: 09/09/23 10:32 LRN [id number]) Sensation Evaluation Gross Sensation Gross Sensation WNL PT-OP-J Posture/Palpation/Skin Start: 09/06/23 16:57 Freq: Status: Active Protocol: Document 09/09/23 09:48 LRN (Rec: 09/09/23 10:32 LRN [id number]) Posture Evaluation Position Sitting Head/C-Spine Posture Forward Head T-Spine Posture Increased Kyphosis Scapula Posture (L) Winged,(R) Winged Arm Posture (L) Internally Rotated,(R) Internally Rotated PT-OP-K Range of Motion Start: 09/06/23 16:57 Freq: Status: Active Protocol: Document 09/09/23 09:48 LRN (Rec: 09/09/23 10:32 LRN [id number]) Cervical Spine Range of Motion Cervical Spine Active Degrees Testing Position Sitting Flexion 25 Extension 38 Rotation Left 35 Rotation Right 42 Lateral Flexion Left 12 Lateral Flexion Right 12 Shoulder Goniometric Range of Motion Shoulder Right Active Testing Position Sitting Flexion 140 Extension 55 Abduction 150 External Rotation at 0 degrees Abduction 65 Internal Rotation Behind Back (text) L4 Comments Reach behind upperback/neck to C7. Left Active Testing Position Sitting Flexion 152 Extension 40 Abduction 158 External Rotation at 0 degrees Abduction 65 Internal Rotation Behind Back (text) L4 Comments Pain with return from flexion. Reach behind upperback/neck to T3. PT-OP-M Strength Start: 09/06/23 16:57 Freq: Status: Active Protocol: Document 09/09/23 09:48 LRN (Rec: 09/09/23 10:32 LRN [id number]) Shoulder Strength Shoulder Manual Muscle Testing Right Flexion 3 Fair Extension 3 Fair Abduction (C5) 5 Normal Adduction 5 Normal External Rotation 4+ Good+ Internal Rotation 4+ Good+ Left Flexion 3 Fair Extension 3 Fair Abduction (C5) 5 Normal Adduction 5 Normal External Rotation 4+ Good+ Internal Rotation 4+ Good+ PT-OP-Q Treatments Start: 09/06/23 16:57 Freq: Status: Active Protocol: Document 09/09/23 09:48 LRN (Rec: 09/09/23 10:32 LRN [id number]) Self-Care/Home Management Treatment Education Patient Education Home Exercise Program Other Education Discussed results of evaluation, goals, and plan of care (POC). Pt agreeable to goals and POC. Activities Self-Care/Home Management Activities Issued & reviewed HEP: active shoulder ER sitting, sidelie & with resistance. Issued Lev 1 TB. PT-OP-T Assessment and Plan Start: 09/06/23 16:57 Freq: Status: Active Protocol: Document 09/09/23 09:48 LRN (Rec: 09/09/23 10:32 LRN [id number]) Physical Therapy Assessment Rehab Potential Rehabilitation Potential Good Evaluation Complexity Number of Personal Factors/Comorbidities 3 or More Number of Body Systems Impaired 3 Clinical Presentation at Evaluation Stable Impairments Impairments Activity Tolerance,Pain, Posture,Strength Goals Three Impairment Decreased function due to L shoulder pain Impairment UE Quickdash score 36 (20-39% impaired, score 20-39). Sharp pain rated 3/10. 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 LTG Duration 9 wks-11/11/23 Two Impairment L shoulder pain with functional mobility Impairment Pain with picking objects off the ground and with reaching out with arm to the side and with lowering the arm after reaching overhead. 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 STG Duration 4 wks-10/07/23 Shelter Goal (LTG) Improve L shoulder and scapular stabilizer strength with pt able to reach fwd to fully extend the arm without pain (forward). LTG Duration 9 wks-11/11/23 One Impairment Pt lacks appropriate self care HEP. Short Term Goal (STG) Pt will be educated in self care for pain management STG Duration 1 wk-09/16/23 Clinical Research Nurse Coordinator Goal (LTG) Pt will be educated in HEP of RC and scapular stabilizer strengthening ex's as well as core stabilization. 09/09/23: HEP: Active L shoulder ER (sit, sidelie, stand) and resistive ER (Lev1 TB issued) LTG Duration 9 wks-11/11/23 Assessment Summary Assessment Pt is a 73 yo male who is reportedly 4 wks s/p 3rd cortisone injection to the L shoulder, and imaging indicating extensive tearing of his L rotator cuff (subscap , infraspinatus, subscapularis ) and tearing of the superior anterior and anterior inferior labrum and long head of biceps tendon. He presents with a L shoulder painful arc and + drop arm test, indicating rotator cuff (RC) dysfunction, and to a lesser degree, a painful arc of the R shoulder. As expected he has trouble reaching behind his head to due RC dysfunction. Pt progress is expected to be hindered due to multiple tears in his rotator cuff, labrum and long head of biceps. He is expected to be also be limited by cervical restrictions associated to his reported cervical surgery history (fusion with cage in place). The pt will benefit from skilled physical therapy to improve the strength of his muscles around that support the rotator cuff and his scapular stabilizers, to maximize his L shoulder mobility and function. His rehab time may need to be extended due to the coming holiday schedules. Physical Therapy Plan Frequency and Duration Frequency of Treatment 2x/Week Duration of treatment (weeks) 9 Plan of Care Start Date 09/09/23 Plan of Care End Date 11/11/23 Therapeutic Interventions Therapeutic Interventions Home Exercise Program,Manual Therapy,Self-Care/Home Management,Soft Tissue Mobilization,Taping, Therapeutic Exercises Modalities Cold Pack/Ice Massage,Hot Packs Next Visit Focus/Plan Next Note Type Treatment Note Next Visit Plan POC: L RC and scapular stabilizer strengthening, STM- UT/L shoulder, MWM-active ROM w/scap stab, general strengthening (UBE), Education in self care pain management & HEP. Next: UBE, active or AA shoulder ROM strengthening, scap stabilizer strengthening, Pec stretch, STM L neck. Modalities of heat/ice to end if needed.
--- NOTE | 2023-09-13 09:53 | PT.OTN ---
Current Diagnoses Other specified joint disorders, left shoulder (09/13/23) Physical Therapy Treatment Note PT-OP-A Visit Information Start: 09/06/23 16:57 Freq: Status: Active Protocol: Document 09/13/23 09:03 LRN (Rec: 09/13/23 09:48 LRN [id number]) Out-Patient Physical Therapy Visit Information Visit Information Visit Type Treatment Note Visit Note KX Visit Start Time 09:03 Visit Stop Time 08:43 Total Visit Minutes 40 Visit Number 2 Evaluation Information Evaluation Date 09/09/23 Precautions Precautions Arthritis, Diabetes type II, Back pain. Cervical fusion at C3-C6; R distal clavicle resection, 2 Uni-knee arthroplasty, back surgery for wedge placed between L3, L4. PT-OP-B Current Condition Start: 09/06/23 16:57 Freq: Status: Active Protocol: Document 09/09/23 09:48 LRN (Rec: 09/09/23 10:32 LRN [id number]) Current Condition History of Current Condition Onset Date 6-7 months ago. Current Complaints Sharp pain in L shoulder with lowering of arm or reaching out. History of Current Condition Insidious onset of L shoulder pain and sometimes gets sharp pain in the shoulder. Has to use the R arm to help lift the shoulder. When lowering the arm gets a catch or tear. R shoulder is also sore, but doesn't have porter pains. States he has a tear in the L shoulder muscles per MRI. Prior Treatments and Tests [id number] of supraspinatus at its insertion on the humeral head, partial- thickness tear involving distal infraspinatus, and partial-thickness tear involving distal subscapularis . Capsule superior anterior labral and anterior inferior labral tear, long head of biceps tendon is suggestive of moderate grade partial- thickness tear. Cortisone injection 1 month ago at inferior posterior acromion process. Has had 3 total injection. Future Testing and Treatments Planned Cortisone injection in the back for LE pain. 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 Personal Factors Other Personal Factors That May Effect Extensive tearing of L Therapy/Recovery supraspinatus, infraspinatus, & subscapularis ms, labrum, and long head of biceps; Arthritis, Diabetes type II, Back pain. Cervical fusion at C3-C6. PT-OP-C Subjective Start: 09/06/23 16:57 Freq: Status: Active Protocol: Document 09/13/23 09:03 LRN (Rec: 09/13/23 09:51 LRN [id number]) OP-PT Subjective Patient Comments Patient Reported Progress Same PT-OP-E Functional Tests Start: 09/06/23 16:57 Freq: Status: Active Protocol: Document 09/09/23 09:48 LRN (Rec: 09/09/23 10:32 LRN [id number]) Functional Tests Apley's Scratch Test Action 1- Left scapula Action 1- Right scapula Action 2- Left T3 Action 2- Right C7 Action 3- Left L4 Action 3- Right L4 PT-OP-H Neuro Start: 09/06/23 16:57 Freq: Status: Active Protocol: Document 09/09/23 09:48 LRN (Rec: 09/09/23 10:32 LRN [id number]) Sensation Evaluation Gross Sensation Gross Sensation WNL PT-OP-J Posture/Palpation/Skin Start: 09/06/23 16:57 Freq: Status: Active Protocol: Document 09/09/23 09:48 LRN (Rec: 09/09/23 10:32 LRN [id number]) Posture Evaluation Position Sitting Head/C-Spine Posture Forward Head T-Spine Posture Increased Kyphosis Scapula Posture (L) Winged,(R) Winged Arm Posture (L) Internally Rotated,(R) Internally Rotated PT-OP-K Range of Motion Start: 09/06/23 16:57 Freq: Status: Active Protocol: Document 09/09/23 09:48 LRN (Rec: 09/09/23 10:32 LRN [id number]) Cervical Spine Range of Motion Cervical Spine Active Degrees Testing Position Sitting Flexion 25 Extension 38 Rotation Left 35 Rotation Right 42 Lateral Flexion Left 12 Lateral Flexion Right 12 Shoulder Goniometric Range of Motion Shoulder Right Active Testing Position Sitting Flexion 140 Extension 55 Abduction 150 External Rotation at 0 degrees Abduction 65 Internal Rotation Behind Back (text) L4 Comments Reach behind upperback/neck to C7. Left Active Testing Position Sitting Flexion 152 Extension 40 Abduction 158 External Rotation at 0 degrees Abduction 65 Internal Rotation Behind Back (text) L4 Comments Pain with return from flexion. Reach behind upperback/neck to T3. PT-OP-M Strength Start: 09/06/23 16:57 Freq: Status: Active Protocol: Document 09/09/23 09:48 LRN (Rec: 09/09/23 10:32 LRN [id number]) Shoulder Strength Shoulder Manual Muscle Testing Right Flexion 3 Fair Extension 3 Fair Abduction (C5) 5 Normal Adduction 5 Normal External Rotation 4+ Good+ Internal Rotation 4+ Good+ Left Flexion 3 Fair Extension 3 Fair Abduction (C5) 5 Normal Adduction 5 Normal External Rotation 4+ Good+ Internal Rotation 4+ Good+ PT-OP-Q Treatments Start: 09/06/23 16:57 Freq: Status: Active Protocol: Document 09/13/23 09:03 LRN (Rec: 09/13/23 09:48 LRN [id number]) Cardio Equipment Upper Body Ergometer (UBE) Duration (Minutes) 6 RPM 80 Seat Position 10 Height 3 Other fwd/bkwd Therapeutic Exercises Sitting Exercises Overhead Araceli Sitting Exercise Name Overhead Pully for assisted flex/AB - alternating sides Side bilateral Reps/Minutes 14' Comments MWM of support to L neck during ex of R shldr, and PA/ infer glide humerus. Manual Therapy Treatment Soft Tissue Mobilization Neck/L shdr Body Location L lateral neck/shoulder/upper back Mobilization Type Strumming Intensity/Depth Moderate Body Position Sidelying Self-Care/Home Management Treatment Education Other Education Education in self care pain management of hot/cold bath. Activities Self-Care/Home Management Activities Issued & reviewed handout for hot/cold bath. PT-OP-T Assessment and Plan Start: 09/06/23 16:57 Freq: Status: Active Protocol: Document 09/13/23 09:03 LRN (Rec: 09/13/23 09:48 LRN [id number]) Physical Therapy Assessment Goals Three Impairment Decreased function due to L shoulder pain Impairment UE Quickdash score 36 (20-39% impaired, score 20-39). Sharp pain rated 3/10. 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 LTG Duration 9 wks-11/11/23 Two Impairment L shoulder pain with functional mobility Impairment Pain with picking objects off the ground and with reaching out with arm to the side and with lowering the arm after reaching overhead. Short Term Goal (STG) Improve RC and scapular stabilizer strength with pt able to reach to picking tech light objects off the ground without L shoulder pain. STG Duration 4 wks-10/07/23 Care Home Goal (LTG) Improve L shoulder and scapular stabilizer strength with pt able to reach fwd to fully extend the arm without pain (forward). LTG Duration 9 wks-11/11/23 One Impairment Pt lacks appropriate self care HEP. Short Term Goal (STG) Pt will be educated in self care for pain management. 09/13/23: Education in self care pain management of hot/ cold treatment. STG Duration 1 wk-09/16/23 (09/13/23: MET GOAL) Care Home Goal (LTG) Pt will be educated in HEP of RC and scapular stabilizer strengthening ex's as well as core stabilization. 09/09/23: HEP: Active L shoulder ER (sit, sidelie, stand) and resistive ER (Lev1 TB issued) LTG Duration 9 wks-11/11/23 Assessment Summary Assessment Pt is a 73 yo male w/extensive tearing of his L rotator cuff & labral tear, s/p cortisone injection in L shldr with pain w/mvmt. Pain with araceli with lowering of arm minimized with MWM. Pain from ex relieved with STM. Physical Therapy Plan Frequency and Duration Frequency of Treatment 2x/Week Duration of treatment (weeks) 9 Plan of Care Start Date 09/09/23 Plan of Care End Date 11/11/23 Next Visit Focus/Plan Next Note Type Treatment Note Next Visit Plan POC: L RC and scapular stabilizer strengthening, STM- UT/L shoulder, MWM-active ROM w/scap stab, general strengthening (UBE), HEP. Next: Review HEP of active shoulder ER sitting, sidelie & w Lev 1 TB. Try adding mat ex's of active or AA shoulder ROM strengthening, scap stabilizer strengthening, Pec stretch. Modalities of heat/ ice to end if needed.
--- NOTE | 2023-09-15 16:44 | PT.OTN ---
Current Diagnoses Other specified joint disorders, left shoulder (09/15/23) Physical Therapy Treatment Note PT-OP-A Visit Information Start: 09/06/23 16:57 Freq: Status: Active Protocol: Document 09/15/23 09:08 LRN (Rec: 09/15/23 09:51 LRN [id number]) Out-Patient Physical Therapy Visit Information Visit Information Visit Type Treatment Note Visit Note KX Visit Start Time 09:08 Visit Stop Time 09:47 Total Visit Minutes 39 Visit Number 3 Evaluation Information Evaluation Date 09/09/23 Precautions Precautions Arthritis, Diabetes type II, Back pain. Cervical fusion at C3-C6; R distal clavicle resection, 2 Uni-knee arthroplasty, back surgery for wedge placed between L3, L4. PT-OP-B Current Condition Start: 09/06/23 16:57 Freq: Status: Active Protocol: Document 09/09/23 09:48 LRN (Rec: 09/09/23 10:32 LRN [id number]) Current Condition History of Current Condition Onset Date 6-7 months ago. Current Complaints Sharp pain in L shoulder with lowering of arm or reaching out. History of Current Condition Insidious onset of L shoulder pain and sometimes gets sharp pain in the shoulder. Has to use the R arm to help lift the shoulder. When lowering the arm gets a catch or tear. R shoulder is also sore, but doesn't have porter pains. States he has a tear in the L shoulder muscles per MRI. Prior Treatments and Tests [id number] of supraspinatus at its insertion on the humeral head, partial- thickness tear involving distal infraspinatus, and partial-thickness tear involving distal subscapularis . Capsule superior anterior labral and anterior inferior labral tear, long head of biceps tendon is suggestive of moderate grade partial- thickness tear. Cortisone injection 1 month ago at inferior posterior acromion process. Has had 3 total injection. Future Testing and Treatments Planned Cortisone injection in the back for LE pain. 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 Personal Factors Other Personal Factors That May Effect Extensive tearing of L Therapy/Recovery supraspinatus, infraspinatus, & subscapularis ms, labrum, and long head of biceps; Arthritis, Diabetes type II, Back pain. Cervical fusion at C3-C6. PT-OP-C Subjective Start: 09/06/23 16:57 Freq: Status: Active Protocol: Document 09/15/23 09:08 LRN (Rec: 09/15/23 09:51 LRN [id number]) OP-PT Subjective Patient Comments Patient Comments No increase in pain after last session. Hot/Cold treatment to the neck was helpful in decreasing pain. Going to get on tractor today for a little bit. PT-OP-E Functional Tests Start: 09/06/23 16:57 Freq: Status: Active Protocol: Document 09/09/23 09:48 LRN (Rec: 09/09/23 10:32 LRN [id number]) Functional Tests Apley's Scratch Test Action 1- Left scapula Action 1- Right scapula Action 2- Left T3 Action 2- Right C7 Action 3- Left L4 Action 3- Right L4 PT-OP-H Neuro Start: 09/06/23 16:57 Freq: Status: Active Protocol: Document 09/09/23 09:48 LRN (Rec: 09/09/23 10:32 LRN [id number]) Sensation Evaluation Gross Sensation Gross Sensation WNL PT-OP-J Posture/Palpation/Skin Start: 09/06/23 16:57 Freq: Status: Active Protocol: Document 09/09/23 09:48 LRN (Rec: 09/09/23 10:32 LRN [id number]) Posture Evaluation Position Sitting Head/C-Spine Posture Forward Head T-Spine Posture Increased Kyphosis Scapula Posture (L) Winged,(R) Winged Arm Posture (L) Internally Rotated,(R) Internally Rotated PT-OP-K Range of Motion Start: 09/06/23 16:57 Freq: Status: Active Protocol: Document 09/09/23 09:48 LRN (Rec: 09/09/23 10:32 LRN [id number]) Cervical Spine Range of Motion Cervical Spine Active Degrees Testing Position Sitting Flexion 25 Extension 38 Rotation Left 35 Rotation Right 42 Lateral Flexion Left 12 Lateral Flexion Right 12 Shoulder Goniometric Range of Motion Shoulder Right Active Testing Position Sitting Flexion 140 Extension 55 Abduction 150 External Rotation at 0 degrees Abduction 65 Internal Rotation Behind Back (text) L4 Comments Reach behind upperback/neck to C7. Left Active Testing Position Sitting Flexion 152 Extension 40 Abduction 158 External Rotation at 0 degrees Abduction 65 Internal Rotation Behind Back (text) L4 Comments Pain with return from flexion. Reach behind upperback/neck to T3. PT-OP-M Strength Start: 09/06/23 16:57 Freq: Status: Active Protocol: Document 09/09/23 09:48 LRN (Rec: 09/09/23 10:32 LRN [id number]) Shoulder Strength Shoulder Manual Muscle Testing Right Flexion 3 Fair Extension 3 Fair Abduction (C5) 5 Normal Adduction 5 Normal External Rotation 4+ Good+ Internal Rotation 4+ Good+ Left Flexion 3 Fair Extension 3 Fair Abduction (C5) 5 Normal Adduction 5 Normal External Rotation 4+ Good+ Internal Rotation 4+ Good+ PT-OP-Q Treatments Start: 09/06/23 16:57 Freq: Status: Active Protocol: Document 09/15/23 09:08 LRN (Rec: 09/15/23 09:51 LRN [id number]) Cardio Equipment Upper Body Ergometer (UBE) Duration (Minutes) 6 RPM 80 Seat Position 11 Height 3 Other fwd/bkwd, an extra 2' set up Therapeutic Exercises Supine Exercises Lat Pull Down Supine Exercise Name Limited range of 0-30 deg's flex Side bilateral Equipment Used Lev 1 TB Reps/Minutes 10x Comments Extra time to determine max tolerated range and resistance . Sidelying Exercises Shoulder IR Sidelying Exercise Name L Shoulder IR strengthening ( adding R shdr ex for symmetry) Side bilateral Reps/Minutes 15x Shoulder ER Sidelying Exercise Name L Shoulder ER strengthening ( adding R shdr ex for symmetry) Side bilateral Reps/Minutes 15x Sitting Exercises Overhead Parvez Sitting Exercise Name Overhead Pully for assisted flex/AB - alternating sides Side bilateral Reps/Minutes 10' Comments MWM of support to L neck during ex of R shldr, and PA/ infer glide humerus. Manual Therapy Treatment Soft Tissue Mobilization Neck/L shdr Body Location L neck/UT Mobilization Type Strumming Intensity/Depth Moderate Body Position Supine PT-OP-T Assessment and Plan Start: 09/06/23 16:57 Freq: Status: Active Protocol: Document 09/15/23 09:08 LRN (Rec: 09/15/23 09:51 LRN [id number]) Physical Therapy Assessment Goals Three Impairment Decreased function due to L shoulder pain Impairment UE Quickdash score 36 (20-39% impaired, score 20-39). Sharp pain rated 3/10. 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 LTG Duration 9 wks-11/11/23 Two Impairment L shoulder pain with functional mobility Impairment Pain with picking objects off the ground and with reaching out with arm to the side and with lowering the arm after reaching overhead. 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 STG Duration 4 wks-10/07/23 Windlasser Goal (LTG) Improve L shoulder and scapular stabilizer strength with pt able to reach fwd to fully extend the arm without pain (forward). LTG Duration 9 wks-11/11/23 One Impairment Pt lacks appropriate self care HEP. Short Term Goal (STG) Pt will be educated in self care for pain management. 09/13/23: Education in self care pain management of hot/ cold treatment. STG Duration 1 wk-09/16/23 (09/13/23: MET GOAL) Senior Care Goal (LTG) Pt will be educated in HEP of RC and scapular stabilizer strengthening ex's as well as core stabilization. 09/09/23: HEP: Active L shoulder ER (sit, sidelie, stand) and resistive ER (Lev1 TB issued) LTG Duration 9 wks-11/11/23 Assessment Summary Assessment + response to self care hot/ cold treatment at neck, was helpful in managing pain. Very little range available for Lat Dorsi strengthening (L shdr flex 0-30 deg's) due to pain. Pt able to perform ER strengthening in sidelie in a painfree range. Physical Therapy Plan Frequency and Duration Frequency of Treatment 2x/Week Duration of treatment (weeks) 9 Plan of Care Start Date 09/09/23 Plan of Care End Date 11/11/23 Next Visit Focus/Plan Next Note Type Treatment Note Next Visit Plan KX. POC: L RC and scapular stabilizer strengthening, STM- UT/L shoulder, MWM-active ROM w/scap stab, general strengthening (UBE), HEP. Next: Review HEP of active shoulder ER sitting, sidelie ER strengthening & lat dorsi strengthening w Lev 1 TB. Try adding reclined mat ex's of active or AA shoulder ROM L shoulder strengthening, cont scap stabilizer strengthening (standing TBand ex), manual pec stretch. Modalities of heat/ice to end if needed.
--- NOTE | 2023-09-19 10:33 | PT.OTN ---
Current Diagnoses Other specified joint disorders, left shoulder (09/19/23) Physical Therapy Treatment Note PT-OP-A Visit Information Start: 09/06/23 16:57 Freq: Status: Active Protocol: Document 09/19/23 09:45 SP (Rec: 09/19/23 10:34 SP [id number]) Out-Patient Physical Therapy Visit Information Visit Information Visit Type Treatment Note Visit Start Time 09:45 Visit Stop Time 10:33 Total Visit Minutes 48 Visit Number 4 Number of PRINTING GREY CLOTH TENDER Visits 1 Evaluation Information Evaluation Date 09/09/23 Precautions Precautions Arthritis, Diabetes type II, Back pain. Cervical fusion at C3-C6; R distal clavicle resection, 2 Uni-knee arthroplasty, back surgery for wedge placed between L3, L4. PT-OP-B Current Condition Start: 09/06/23 16:57 Freq: Status: Active Protocol: Document 09/09/23 09:48 LRN (Rec: 09/09/23 10:32 LRN [id number]) Current Condition History of Current Condition Onset Date 6-7 months ago. Current Complaints Sharp pain in L shoulder with lowering of arm or reaching out. History of Current Condition Insidious onset of L shoulder pain and sometimes gets sharp pain in the shoulder. Has to use the R arm to help lift the shoulder. When lowering the arm gets a catch or tear. R shoulder is also sore, but doesn't have porter pains. States he has a tear in the L shoulder muscles per MRI. Prior Treatments and Tests [id number] of supraspinatus at its insertion on the humeral head, partial- thickness tear involving distal infraspinatus, and partial-thickness tear involving distal subscapularis . Capsule superior anterior labral and anterior inferior labral tear, long head of biceps tendon is suggestive of moderate grade partial- thickness tear. Cortisone injection 1 month ago at inferior posterior acromion process. Has had 3 total injection. Future Testing and Treatments Planned Cortisone injection in the back for LE pain. 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 Personal Factors Other Personal Factors That May Effect Extensive tearing of L Therapy/Recovery supraspinatus, infraspinatus, & subscapularis ms, labrum, and long head of biceps; Arthritis, Diabetes type II, Back pain. Cervical fusion at C3-C6. PT-OP-C Subjective Start: 09/06/23 16:57 Freq: Status: Active Protocol: Document 09/19/23 09:45 SP (Rec: 09/19/23 10:34 SP [id number]) OP-PT Subjective Patient Comments Patient Comments Pt reports see Dr Chow tomorrow for injections for his back but feel doing better. Pt brought in copies of his neck fusion for therapists to view. He reports his neck is stiff more L than R. PT-OP-E Functional Tests Start: 09/06/23 16:57 Freq: Status: Active Protocol: Document 09/09/23 09:48 LRN (Rec: 09/09/23 10:32 LRN [id number]) Functional Tests Apley's Scratch Test Action 1- Left scapula Action 1- Right scapula Action 2- Left T3 Action 2- Right C7 Action 3- Left L4 Action 3- Right L4 PT-OP-H Neuro Start: 09/06/23 16:57 Freq: Status: Active Protocol: Document 09/09/23 09:48 LRN (Rec: 09/09/23 10:32 LRN [id number]) Sensation Evaluation Gross Sensation Gross Sensation WNL PT-OP-J Posture/Palpation/Skin Start: 09/06/23 16:57 Freq: Status: Active Protocol: Document 09/09/23 09:48 LRN (Rec: 09/09/23 10:32 LRN [id number]) Posture Evaluation Position Sitting Head/C-Spine Posture Forward Head T-Spine Posture Increased Kyphosis Scapula Posture (L) Winged,(R) Winged Arm Posture (L) Internally Rotated,(R) Internally Rotated PT-OP-K Range of Motion Start: 09/06/23 16:57 Freq: Status: Active Protocol: Document 09/09/23 09:48 LRN (Rec: 09/09/23 10:32 LRN [id number]) Cervical Spine Range of Motion Cervical Spine Active Degrees Testing Position Sitting Flexion 25 Extension 38 Rotation Left 35 Rotation Right 42 Lateral Flexion Left 12 Lateral Flexion Right 12 Shoulder Goniometric Range of Motion Shoulder Right Active Testing Position Sitting Flexion 140 Extension 55 Abduction 150 External Rotation at 0 degrees Abduction 65 Internal Rotation Behind Back (text) L4 Comments Reach behind upperback/neck to C7. Left Active Testing Position Sitting Flexion 152 Extension 40 Abduction 158 External Rotation at 0 degrees Abduction 65 Internal Rotation Behind Back (text) L4 Comments Pain with return from flexion. Reach behind upperback/neck to T3. PT-OP-M Strength Start: 09/06/23 16:57 Freq: Status: Active Protocol: Document 09/09/23 09:48 LRN (Rec: 09/09/23 10:32 LRN [id number]) Shoulder Strength Shoulder Manual Muscle Testing Right Flexion 3 Fair Extension 3 Fair Abduction (C5) 5 Normal Adduction 5 Normal External Rotation 4+ Good+ Internal Rotation 4+ Good+ Left Flexion 3 Fair Extension 3 Fair Abduction (C5) 5 Normal Adduction 5 Normal External Rotation 4+ Good+ Internal Rotation 4+ Good+ PT-OP-Q Treatments Start: 09/06/23 16:57 Freq: Status: Active Protocol: Document 09/19/23 09:45 SP (Rec: 09/19/23 10:34 SP [id number]) Cardio Equipment Upper Body Ergometer (UBE) Duration (Minutes) 6 RPM 80 Seat Position 12 Height 3 Other fwd/bkwd Therapeutic Exercises Supine Exercises Lat Pull Down Supine Exercise Name Limited range of 0-30 deg's flex Side bilateral Equipment Used Lev 1 TB over dowel (therapist anchors stand above head) Reps/Minutes 10x Comments good form, painfree Sidelying Exercises Shoulder IR Sidelying Exercise Name L Shoulder IR strengthening ( adding R shdr ex for symmetry) Side bilateral Resistance AROM Reps/Minutes 15x Shoulder ER Sidelying Exercise Name L Shoulder ER strengthening ( adding R shdr ex for symmetry) Side bilateral Resistance AROM Reps/Minutes 15x Comments tactile cues for humeral inf glide- less GH pain during ER Sitting Exercises pull down Sitting Exercise Name trialed in PT Side bilateral Resistance TB #1 (anchored high on wall) Equipment Used rearfacing in chair Reps/Minutes x4 Comments causes pain so stopped Overhead Parvez Sitting Exercise Name Overhead Pully for assisted FF & AB - alternating sides Side bilateral Equipment Used mirror front for self awareness Reps/Minutes approx 10 min total Comments MWM of support to L neck during ex of R shldr, and PA/ infer glide humerus. Manual Therapy Treatment Soft Tissue Mobilization Neck/L shdr Body Location L neck/UT, SOR, rhomboid, infraspin, pec, distal Lat Mobilization Type Strumming Intensity/Depth Moderate Body Position Supine Comments manual STMs & MWM scapular AAROM cues slow movement Joint Mobilizations L scapulothoracic Joint L Direction protraction/retraction/ superior/inferior glide Grade II Body Position R SL Comments PROM, AAROM MWM /c STMs PT-OP-T Assessment and Plan Start: 09/06/23 16:57 Freq: Status: Active Protocol: Document 09/19/23 09:45 SP (Rec: 09/19/23 10:34 SP [id number]) Physical Therapy Assessment Goals Three Impairment Decreased function due to L shoulder pain Impairment UE Quickdash score 36 (20-39% impaired, score 20-39). Sharp pain rated 3/10. 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 LTG Duration 9 wks-11/11/23 Two Impairment L shoulder pain with functional mobility Impairment Pain with picking objects off the ground and with reaching out with arm to the side and with lowering the arm after reaching overhead. 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 STG Duration 4 wks-10/07/23 Dialysis Clinical Manager Goal (LTG) Improve L shoulder and scapular stabilizer strength with pt able to reach fwd to fully extend the arm without pain (forward). LTG Duration 9 wks-11/11/23 One Impairment Pt lacks appropriate self care HEP. Short Term Goal (STG) Pt will be educated in self care for pain management. 09/13/23: Education in self care pain management of hot/ cold treatment. STG Duration 1 wk-09/16/23 (09/13/23: MET GOAL) Mcfp Goal (LTG) Pt will be educated in HEP of RC and scapular stabilizer strengthening ex's as well as core stabilization. 09/09/23: HEP: Active L shoulder ER (sit, sidelie, stand) and resistive ER (Lev1 TB issued) LTG Duration 9 wks-11/11/23 Assessment Summary Assessment Pt good feedback response to manual neck and L scapulothoracic PROM, MWM and STMs. Use mirror during pulleys for self awareness of shld/ neck alignment. Improved scapular stabilization during SL shld IR/ER post manual. Physical Therapy Plan Frequency and Duration Frequency of Treatment 2x/Week Duration of treatment (weeks) 9 Plan of Care Start Date 09/09/23 Plan of Care End Date 11/11/23 Therapeutic Interventions Therapeutic Interventions Home Exercise Program,Manual Therapy,Self-Care/Home Management,Soft Tissue Mobilization,Taping, Therapeutic Exercises Modalities Cold Pack/Ice Massage,Hot Packs Next Visit Focus/Plan Next Note Type Treatment Note Next Visit Plan KX. Next tx add standing Shld rows and ext TB. POC: L RC and scapular stabilizer strengthening, STM- UT/L shoulder, MWM-active ROM w/scap stab, general strengthening (UBE), HEP. Next: Review HEP of active shoulder ER sitting, sidelie ER strengthening & lat dorsi strengthening w Lev 1 TB. Try adding reclined mat ex's of active or AA shoulder ROM L shoulder strengthening, cont scap stabilizer strengthening (standing TBand ex), manual pec stretch. Modalities of heat/ice to end if needed.
--- NOTE | 2023-09-21 17:19 | PT.OTN ---
Current Diagnoses Other specified joint disorders, left shoulder (09/21/23) Physical Therapy Treatment Note PT-OP-A Visit Information Start: 09/06/23 16:57 Freq: Status: Active Protocol: Document 09/21/23 14:34 SW (Rec: 09/21/23 15:17 SW [id number]) Out-Patient Physical Therapy Visit Information Visit Information Visit Type Treatment Note Visit Start Time 14:31 Visit Stop Time 15:12 Total Visit Minutes 41 Visit Number 5 Number of MANAGER UTILITY Visits 2 Precautions Precautions Arthritis, Diabetes type II, Back pain. Cervical fusion at C3-C6; R distal clavicle resection, 2 Uni-knee arthroplasty, back surgery for wedge placed between L3, L4. PT-OP-B Current Condition Start: 09/06/23 16:57 Freq: Status: Active Protocol: Document 09/09/23 09:48 LRN (Rec: 09/09/23 10:32 LRN [id number]) Current Condition History of Current Condition Onset Date 6-7 months ago. Current Complaints Sharp pain in L shoulder with lowering of arm or reaching out. History of Current Condition Insidious onset of L shoulder pain and sometimes gets sharp pain in the shoulder. Has to use the R arm to help lift the shoulder. When lowering the arm gets a catch or tear. R shoulder is also sore, but doesn't have porter pains. States he has a tear in the L shoulder muscles per MRI. Prior Treatments and Tests [id number] of supraspinatus at its insertion on the humeral head, partial- thickness tear involving distal infraspinatus, and partial-thickness tear involving distal subscapularis . Capsule superior anterior labral and anterior inferior labral tear, long head of biceps tendon is suggestive of moderate grade partial- thickness tear. Cortisone injection 1 month ago at inferior posterior acromion process. Has had 3 total injection. Future Testing and Treatments Planned Cortisone injection in the back for LE pain. 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 Personal Factors Other Personal Factors That May Effect Extensive tearing of L Therapy/Recovery supraspinatus, infraspinatus, & subscapularis ms, labrum, and long head of biceps; Arthritis, Diabetes type II, Back pain. Cervical fusion at C3-C6. PT-OP-C Subjective Start: 09/06/23 16:57 Freq: Status: Active Protocol: Document 09/21/23 14:34 SW (Rec: 09/21/23 15:17 SW [id number]) OP-PT Subjective Patient Comments Patient Comments Pt reports no increase in pain post last session. PT-OP-E Functional Tests Start: 09/06/23 16:57 Freq: Status: Active Protocol: Document 09/09/23 09:48 LRN (Rec: 09/09/23 10:32 LRN [id number]) Functional Tests Apley's Scratch Test Action 1- Left scapula Action 1- Right scapula Action 2- Left T3 Action 2- Right C7 Action 3- Left L4 Action 3- Right L4 PT-OP-H Neuro Start: 09/06/23 16:57 Freq: Status: Active Protocol: Document 09/09/23 09:48 LRN (Rec: 09/09/23 10:32 LRN [id number]) Sensation Evaluation Gross Sensation Gross Sensation WNL PT-OP-J Posture/Palpation/Skin Start: 09/06/23 16:57 Freq: Status: Active Protocol: Document 09/09/23 09:48 LRN (Rec: 09/09/23 10:32 LRN [id number]) Posture Evaluation Position Sitting Head/C-Spine Posture Forward Head T-Spine Posture Increased Kyphosis Scapula Posture (L) Winged,(R) Winged Arm Posture (L) Internally Rotated,(R) Internally Rotated PT-OP-K Range of Motion Start: 09/06/23 16:57 Freq: Status: Active Protocol: Document 09/09/23 09:48 LRN (Rec: 09/09/23 10:32 LRN [id number]) Cervical Spine Range of Motion Cervical Spine Active Degrees Testing Position Sitting Flexion 25 Extension 38 Rotation Left 35 Rotation Right 42 Lateral Flexion Left 12 Lateral Flexion Right 12 Shoulder Goniometric Range of Motion Shoulder Right Active Testing Position Sitting Flexion 140 Extension 55 Abduction 150 External Rotation at 0 degrees Abduction 65 Internal Rotation Behind Back (text) L4 Comments Reach behind upperback/neck to C7. Left Active Testing Position Sitting Flexion 152 Extension 40 Abduction 158 External Rotation at 0 degrees Abduction 65 Internal Rotation Behind Back (text) L4 Comments Pain with return from flexion. Reach behind upperback/neck to T3. PT-OP-M Strength Start: 09/06/23 16:57 Freq: Status: Active Protocol: Document 09/09/23 09:48 LRN (Rec: 09/09/23 10:32 LRN [id number]) Shoulder Strength Shoulder Manual Muscle Testing Right Flexion 3 Fair Extension 3 Fair Abduction (C5) 5 Normal Adduction 5 Normal External Rotation 4+ Good+ Internal Rotation 4+ Good+ Left Flexion 3 Fair Extension 3 Fair Abduction (C5) 5 Normal Adduction 5 Normal External Rotation 4+ Good+ Internal Rotation 4+ Good+ PT-OP-Q Treatments Start: 09/06/23 16:57 Freq: Status: Active Protocol: Document 09/21/23 14:34 SW (Rec: 09/21/23 15:17 SW [id number]) Therapeutic Exercises Supine Exercises Lat Pull Down Supine Exercise Name Limited range of 0-30 deg's flex Side bilateral Equipment Used Lev 1 TB over dowel (therapist anchors stand above head) Reps/Minutes 10x Comments good form, painfree Sidelying Exercises Shoulder IR Sidelying Exercise Name L Shoulder IR strengthening ( adding R shdr ex for symmetry) Side bilateral Resistance AROM Reps/Minutes 15x Shoulder ER Sidelying Exercise Name L Shoulder ER strengthening ( adding R shdr ex for symmetry) Side bilateral Resistance AROM Reps/Minutes 15x Comments tactile cues for humeral inf glide- less GH pain during ER Sitting Exercises Overhead Parvez Sitting Exercise Name Overhead Pully for assisted FF & AB - alternating sides Side bilateral Equipment Used mirror front for self awareness Reps/Minutes approx 10 min total Comments MWM of support to L neck during ex of R shldr, and PA/ infer glide humerus. Standing Exercises Rows Standing Exercise Name Rows Manual Therapy Treatment Soft Tissue Mobilization Neck/L shdr Body Location L neck/UT, SOR, rhomboid, infraspin, pec, distal Lat Mobilization Type Strumming Intensity/Depth Moderate Body Position Supine Comments manual STMs & MWM scapular AAROM cues slow movement Joint Mobilizations L scapulothoracic Joint L Direction protraction/retraction/ superior/inferior glide Grade II Body Position R SL Comments PROM, AAROM MWM /c STMs PT-OP-T Assessment and Plan Start: 09/06/23 16:57 Freq: Status: Active Protocol: Document 09/21/23 14:34 SW (Rec: 09/21/23 15:17 SW [id number]) Physical Therapy Assessment Goals Three Impairment Decreased function due to L shoulder pain Impairment UE Quickdash score 36 (20-39% impaired, score 20-39). Sharp pain rated 3/10. 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 LTG Duration 9 wks-11/11/23 Two Impairment L shoulder pain with functional mobility Impairment Pain with picking objects off the ground and with reaching out with arm to the side and with lowering the arm after reaching overhead. Short Term Goal (STG) Improve RC and scapular stabilizer strength with pt able to reach to pickling solution maker light objects off the ground without L shoulder pain. STG Duration 4 wks-10/07/23 Residential Goal (LTG) Improve L shoulder and scapular stabilizer strength with pt able to reach fwd to fully extend the arm without pain (forward). LTG Duration 9 wks-11/11/23 One Impairment Pt lacks appropriate self care HEP. Short Term Goal (STG) Pt will be educated in self care for pain management. 09/13/23: Education in self care pain management of hot/ cold treatment. STG Duration 1 wk-09/16/23 (09/13/23: MET GOAL) Residential Goal (LTG) Pt will be educated in HEP of RC and scapular stabilizer strengthening ex's as well as core stabilization. 09/09/23: HEP: Active L shoulder ER (sit, sidelie, stand) and resistive ER (Lev1 TB issued) LTG Duration 9 wks-11/11/23 Assessment Summary Assessment Progressed pt with addition of rows today, cued for scapular setting prior to intiating, tolerated well with no increase in pn. Frequent check in with pt today throughout session for tolerance to exercises, pt denies increased pain throughout session, plan to assess pt response to today's tx and progress as tolerated. Physical Therapy Plan Frequency and Duration Frequency of Treatment 2x/Week Duration of treatment (weeks) 9 Plan of Care Start Date 09/09/23 Plan of Care End Date 11/11/23 Therapeutic Interventions Therapeutic Interventions Home Exercise Program,Manual Therapy,Self-Care/Home Management,Soft Tissue Mobilization,Taping, Therapeutic Exercises Modalities Cold Pack/Ice Massage,Hot Packs Next Visit Focus/Plan Next Note Type Treatment Note Next Visit Plan KX. Next tx add standing Shld rows and ext TB. POC: L RC and scapular stabilizer strengthening, STM- UT/L shoulder, MWM-active ROM w/scap stab, general strengthening (UBE), HEP. Next: Review HEP of active shoulder ER sitting, sidelie ER strengthening & lat dorsi strengthening w Lev 1 TB. Try adding reclined mat ex's of active or AA shoulder ROM L shoulder strengthening, cont scap stabilizer strengthening (standing TBand ex), manual pec stretch. Modalities of heat/ice to end if needed.
--- NOTE | 2023-09-26 10:30 | PT.OTN ---
Current Diagnoses Other specified joint disorders, left shoulder (09/26/23) Physical Therapy Treatment Note PT-OP-A Visit Information Start: 09/06/23 16:57 Freq: Status: Active Protocol: Document 09/26/23 09:49 SP (Rec: 09/26/23 10:36 SP [id number]) Out-Patient Physical Therapy Visit Information Visit Information Visit Type Treatment Note Visit Start Time 09:49 Visit Stop Time 10:30 Total Visit Minutes 41 Visit Number 6 Number of DADO OPERATOR Visits 3 Evaluation Information Evaluation Date 09/09/23 Precautions Precautions Arthritis, Diabetes type II, Back pain. Cervical fusion at C3-C6; R distal clavicle resection, 2 Uni-knee arthroplasty, back surgery for wedge placed between L3, L4. PT-OP-B Current Condition Start: 09/06/23 16:57 Freq: Status: Active Protocol: Document 09/09/23 09:48 LRN (Rec: 09/09/23 10:32 LRN [id number]) Current Condition History of Current Condition Onset Date 6-7 months ago. Current Complaints Sharp pain in L shoulder with lowering of arm or reaching out. History of Current Condition Insidious onset of L shoulder pain and sometimes gets sharp pain in the shoulder. Has to use the R arm to help lift the shoulder. When lowering the arm gets a catch or tear. R shoulder is also sore, but doesn't have porter pains. States he has a tear in the L shoulder muscles per MRI. Prior Treatments and Tests [id number] of supraspinatus at its insertion on the humeral head, partial- thickness tear involving distal infraspinatus, and partial-thickness tear involving distal subscapularis . Capsule superior anterior labral and anterior inferior labral tear, long head of biceps tendon is suggestive of moderate grade partial- thickness tear. Cortisone injection 1 month ago at inferior posterior acromion process. Has had 3 total injection. Future Testing and Treatments Planned Cortisone injection in the back for LE pain. 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 Personal Factors Other Personal Factors That May Effect Extensive tearing of L Therapy/Recovery supraspinatus, infraspinatus, & subscapularis ms, labrum, and long head of biceps; Arthritis, Diabetes type II, Back pain. Cervical fusion at C3-C6. PT-OP-C Subjective Start: 09/06/23 16:57 Freq: Status: Active Protocol: Document 09/26/23 09:49 SP (Rec: 09/26/23 10:36 SP [id number]) OP-PT Subjective Patient Comments Patient Comments Pt reported Sarah espinosa feeling better, hurt when reaching to scratch his back but less pain changing gears using tractor couple hours 2x/day lately cleaning up his yard. Feels like still a catch when reaching out any direction. He states has been performing wall slides after his shower to dry under his arm. PT-OP-E Functional Tests Start: 09/06/23 16:57 Freq: Status: Active Protocol: Document 09/09/23 09:48 LRN (Rec: 09/09/23 10:32 LRN [id number]) Functional Tests Apley's Scratch Test Action 1- Left scapula Action 1- Right scapula Action 2- Left T3 Action 2- Right C7 Action 3- Left L4 Action 3- Right L4 PT-OP-H Neuro Start: 09/06/23 16:57 Freq: Status: Active Protocol: Document 09/09/23 09:48 LRN (Rec: 09/09/23 10:32 LRN [id number]) Sensation Evaluation Gross Sensation Gross Sensation WNL PT-OP-J Posture/Palpation/Skin Start: 09/06/23 16:57 Freq: Status: Active Protocol: Document 09/09/23 09:48 LRN (Rec: 09/09/23 10:32 LRN [id number]) Posture Evaluation Position Sitting Head/C-Spine Posture Forward Head T-Spine Posture Increased Kyphosis Scapula Posture (L) Winged,(R) Winged Arm Posture (L) Internally Rotated,(R) Internally Rotated PT-OP-K Range of Motion Start: 09/06/23 16:57 Freq: Status: Active Protocol: Document 09/09/23 09:48 LRN (Rec: 09/09/23 10:32 LRN [id number]) Cervical Spine Range of Motion Cervical Spine Active Degrees Testing Position Sitting Flexion 25 Extension 38 Rotation Left 35 Rotation Right 42 Lateral Flexion Left 12 Lateral Flexion Right 12 Shoulder Goniometric Range of Motion Shoulder Right Active Testing Position Sitting Flexion 140 Extension 55 Abduction 150 External Rotation at 0 degrees Abduction 65 Internal Rotation Behind Back (text) L4 Comments Reach behind upperback/neck to C7. Left Active Testing Position Sitting Flexion 152 Extension 40 Abduction 158 External Rotation at 0 degrees Abduction 65 Internal Rotation Behind Back (text) L4 Comments Pain with return from flexion. Reach behind upperback/neck to T3. PT-OP-M Strength Start: 09/06/23 16:57 Freq: Status: Active Protocol: Document 09/09/23 09:48 LRN (Rec: 09/09/23 10:32 LRN [id number]) Shoulder Strength Shoulder Manual Muscle Testing Right Flexion 3 Fair Extension 3 Fair Abduction (C5) 5 Normal Adduction 5 Normal External Rotation 4+ Good+ Internal Rotation 4+ Good+ Left Flexion 3 Fair Extension 3 Fair Abduction (C5) 5 Normal Adduction 5 Normal External Rotation 4+ Good+ Internal Rotation 4+ Good+ PT-OP-Q Treatments Start: 09/06/23 16:57 Freq: Status: Active Protocol: Document 09/26/23 09:49 SP (Rec: 09/26/23 10:36 SP [id number]) Therapeutic Exercises Sidelying Exercises ABD Sidelying Exercise Name added to HEP Side left Resistance AAROM>AROM Reps/Minutes x5 reps tactile support, then self x5 reps Comments cued serratus press out during range, more stable/less crunch open book Sidelying Exercise Name added to HEP: modified hand on head Side left Resistance AROM Reps/Minutes 2x5 reps Comments cued serratus press at range needed less/no crunching Standing Exercises IR stretch Standing Exercise Name added to HEP Side left Resistance AAROM Equipment Used towel over R shld, LUE grasp towel Reps/Minutes 5 reps x10 SH Comments good feedback stretch, able get further to allow cratch extension Standing Exercise Name added to HEP Side bilateral Resistance TB #4 dark blue Reps/Minutes 10 reps each Comments painfree, good form Rows Standing Exercise Name HEP reviewed Side bilateral Resistance TB #1 peach> TB #4 Dark blue Reps/Minutes 10 reps each Comments painfree, good form Manual Therapy Treatment Soft Tissue Mobilization Neck/L shdr Body Location L neck/UT, SOR, rhomboid, infraspin, pec, distal Lat Mobilization Type Strumming Intensity/Depth Moderate Body Position Supine Comments manual STMs & MWM scapular AAROM cues slow movement Joint Mobilizations L scapulothoracic Joint L Direction protraction/retraction/ superior/inferior glide Grade II Body Position R SL Comments PROM, AAROM MWM /c STMs Self-Care/Home Management Treatment Education Other Education ed arm swing walking PT-OP-T Assessment and Plan Start: 09/06/23 16:57 Freq: Status: Active Protocol: Document 09/26/23 09:49 SP (Rec: 09/26/23 10:36 SP [id number]) Physical Therapy Assessment Goals Three Impairment Decreased function due to L shoulder pain Impairment UE Quickdash score 36 (20-39% impaired, score 20-39). Sharp pain rated 3/10. 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 09/26/23:5-6/10 achy pain goes away with heating pad. when reach any direction catches with pain. LTG Duration 9 wks-11/11/23 progressing 09/01/23 Two Impairment L shoulder pain with functional mobility Impairment Pain with picking objects off the ground and with reaching out with arm to the side and with lowering the arm after reaching overhead. Short Term Goal (STG) Improve RC and scapular stabilizer strength with pt able to reach to corn picker light objects off the ground without L shoulder pain. STG Duration 4 wks-10/07/23 Fci Goal (LTG) Improve L shoulder and scapular stabilizer strength with pt able to reach fwd to fully extend the arm without pain (forward). LTG Duration 9 wks-11/11/23 One Impairment Pt lacks appropriate self care HEP. Short Term Goal (STG) Pt will be educated in self care for pain management. 09/13/23: Education in self care pain management of hot/ cold treatment. STG Duration 1 wk-09/16/23 (09/13/23: MET GOAL) Cash Teller Goal (LTG) Pt will be educated in HEP of RC and scapular stabilizer strengthening ex's as well as core stabilization. 09/09/23: HEP: Active L shoulder ER (sit, sidelie, stand) and resistive ER (Lev1 TB issued) LTG Duration 9 wks-11/11/23 Assessment Summary Assessment Pt improved Serratus and Low trap activation during sidelying ther ex today with decreased L GH&scapulothoracic crunching instances with no pain reported just annoying. Pt responded well to added resisted shld ther ex with no reports of pain and able to increase resistance with others reviewed. REviewed with pt to be aware of letting his arms swing when walking for GH mobility. Physical Therapy Plan Frequency and Duration Frequency of Treatment 2x/Week Duration of treatment (weeks) 9 Plan of Care Start Date 09/09/23 Plan of Care End Date 11/11/23 Therapeutic Interventions Therapeutic Interventions Home Exercise Program,Manual Therapy,Self-Care/Home Management,Soft Tissue Mobilization,Taping, Therapeutic Exercises Modalities Cold Pack/Ice Massage,Hot Packs Next Visit Focus/Plan Next Note Type Treatment Note Next Visit Plan KX. recheck resisted ext and IR stretch. POC: L RC and scapular stabilizer strengthening, STM- UT/L shoulder, MWM-active ROM w/scap stab, general strengthening (UBE), HEP. Next: Review HEP of active shoulder ER sitting, sidelie ER strengthening & lat dorsi strengthening w Lev 1 TB. Try adding reclined mat ex's of active or AA shoulder ROM L shoulder strengthening, cont scap stabilizer strengthening (standing TBand ex), manual pec stretch. Modalities of heat/ice to end if needed.
--- NOTE | 2023-09-29 09:35 | PT.OTN ---
Current Diagnoses Other specified joint disorders, left shoulder (09/29/23) Physical Therapy Treatment Note PT-OP-A Visit Information Start: 09/06/23 16:57 Freq: Status: Active Protocol: Document 09/29/23 08:44 SP (Rec: 09/29/23 09:38 SP [id number]) Out-Patient Physical Therapy Visit Information Visit Information Visit Type Treatment Note Visit Start Time 08:45 Visit Stop Time 09:35 Total Visit Minutes 50 Visit Number 7 Number of MILLER KILN DRIED SALT Visits 4 Evaluation Information Evaluation Date 09/09/23 Precautions Precautions Arthritis, Diabetes type II, Back pain. Cervical fusion at C3-C6; R distal clavicle resection, 2 Uni-knee arthroplasty, back surgery for wedge placed between L3, L4. PT-OP-B Current Condition Start: 09/06/23 16:57 Freq: Status: Active Protocol: Document 09/09/23 09:48 LRN (Rec: 09/09/23 10:32 LRN [id number]) Current Condition History of Current Condition Onset Date 6-7 months ago. Current Complaints Sharp pain in L shoulder with lowering of arm or reaching out. History of Current Condition Insidious onset of L shoulder pain and sometimes gets sharp pain in the shoulder. Has to use the R arm to help lift the shoulder. When lowering the arm gets a catch or tear. R shoulder is also sore, but doesn't have porter pains. States he has a tear in the L shoulder muscles per MRI. Prior Treatments and Tests [id number] of supraspinatus at its insertion on the humeral head, partial- thickness tear involving distal infraspinatus, and partial-thickness tear involving distal subscapularis . Capsule superior anterior labral and anterior inferior labral tear, long head of biceps tendon is suggestive of moderate grade partial- thickness tear. Cortisone injection 1 month ago at inferior posterior acromion process. Has had 3 total injection. Future Testing and Treatments Planned Cortisone injection in the back for LE pain. 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 Personal Factors Other Personal Factors That May Effect Extensive tearing of L Therapy/Recovery supraspinatus, infraspinatus, & subscapularis ms, labrum, and long head of biceps; Arthritis, Diabetes type II, Back pain. Cervical fusion at C3-C6. PT-OP-C Subjective Start: 09/06/23 16:57 Freq: Status: Active Protocol: Document 09/29/23 08:44 SP (Rec: 09/29/23 09:38 SP [id number]) OP-PT Subjective Patient Comments Patient Comments Pt reports feeling stiff in neck and L shld. He reports able roller picker 50 # rock on grounds and trying be good mechanics PT-OP-E Functional Tests Start: 09/06/23 16:57 Freq: Status: Active Protocol: Document 09/09/23 09:48 LRN (Rec: 09/09/23 10:32 LRN [id number]) Functional Tests Apley's Scratch Test Action 1- Left scapula Action 1- Right scapula Action 2- Left T3 Action 2- Right C7 Action 3- Left L4 Action 3- Right L4 PT-OP-H Neuro Start: 09/06/23 16:57 Freq: Status: Active Protocol: Document 09/09/23 09:48 LRN (Rec: 09/09/23 10:32 LRN [id number]) Sensation Evaluation Gross Sensation Gross Sensation WNL PT-OP-J Posture/Palpation/Skin Start: 09/06/23 16:57 Freq: Status: Active Protocol: Document 09/09/23 09:48 LRN (Rec: 09/09/23 10:32 LRN [id number]) Posture Evaluation Position Sitting Head/C-Spine Posture Forward Head T-Spine Posture Increased Kyphosis Scapula Posture (L) Winged,(R) Winged Arm Posture (L) Internally Rotated,(R) Internally Rotated PT-OP-K Range of Motion Start: 09/06/23 16:57 Freq: Status: Active Protocol: Document 09/09/23 09:48 LRN (Rec: 09/09/23 10:32 LRN [id number]) Cervical Spine Range of Motion Cervical Spine Active Degrees Testing Position Sitting Flexion 25 Extension 38 Rotation Left 35 Rotation Right 42 Lateral Flexion Left 12 Lateral Flexion Right 12 Shoulder Goniometric Range of Motion Shoulder Right Active Testing Position Sitting Flexion 140 Extension 55 Abduction 150 External Rotation at 0 degrees Abduction 65 Internal Rotation Behind Back (text) L4 Comments Reach behind upperback/neck to C7. Left Active Testing Position Sitting Flexion 152 Extension 40 Abduction 158 External Rotation at 0 degrees Abduction 65 Internal Rotation Behind Back (text) L4 Comments Pain with return from flexion. Reach behind upperback/neck to T3. PT-OP-M Strength Start: 09/06/23 16:57 Freq: Status: Active Protocol: Document 09/09/23 09:48 LRN (Rec: 09/09/23 10:32 LRN [id number]) Shoulder Strength Shoulder Manual Muscle Testing Right Flexion 3 Fair Extension 3 Fair Abduction (C5) 5 Normal Adduction 5 Normal External Rotation 4+ Good+ Internal Rotation 4+ Good+ Left Flexion 3 Fair Extension 3 Fair Abduction (C5) 5 Normal Adduction 5 Normal External Rotation 4+ Good+ Internal Rotation 4+ Good+ PT-OP-Q Treatments Start: 09/06/23 16:57 Freq: Status: Active Protocol: Document 09/29/23 08:44 SP (Rec: 09/29/23 09:38 SP [id number]) Cardio Equipment Upper Body Ergometer (UBE) Duration (Minutes) 6 RPM 120 Seat Position 13 Height 3.5 Other 30 sec F/B Therapeutic Exercises Supine Exercises serratus press Supine Exercise Name added to HEP Side left Resistance 1# DB Reps/Minutes x10 Comments tactile cue elbow straight, scapular SA punch Sidelying Exercises open book Sidelying Exercise Name HEP: modified hand on head Side left Resistance AROM Reps/Minutes 5 reps Comments cued serratus press at range, crunching Shoulder ER Sidelying Exercise Name L Shoulder ER strengthening ( adding R shdr ex for symmetry) Side bilateral Resistance AROM Equipment Used towel roll under arm Reps/Minutes 15x Comments tactile cues for humeral inf glide- less GH pain during ER Sitting Exercises putty Sitting Exercise Name full men's golf coach, individual fingers, pick buttons out Resistance red>green Comments good response Overhead Parvez Sitting Exercise Name Overhead Pully seated: FF, ABD , Scaption; standing IR behind back Side bilateral Equipment Used mirror front for self awareness Reps/Minutes 2x10 reps FF, ABD, Scaption; IR 3 breath hold x5reps Comments cued level shld, gentle slower pacing form, improved ROM Standing Exercises FF tball rolling up wall Standing Exercise Name initiated in PT: FF 1. tball wall 2. hand on wall doorframe Side left Resistance 55cm tball Equipment Used slide up wall Reps/Minutes 12 repse each Comments cued slow FF hold/breath IR stretch Standing Exercise Name reviewed HEP Side left Resistance AAROM Equipment Used towel over R shld, LUE grasp towel Reps/Minutes 5 reps x10 SH Comments good feedback stretch, able get further to allow cratch extension Standing Exercise Name HEP reviewed Side bilateral Resistance TB #4 dark blue Reps/Minutes 2x10 Comments painfree, good form Rows Standing Exercise Name HEP reviewed Side bilateral Resistance TB #4 Dark blue> #5 purple TB> cable 1 top plate Equipment Used (blue and peach together home) Reps/Minutes 10 reps each Comments painfree, cued elbows bent cable better effort found Manual Therapy Treatment Soft Tissue Mobilization Neck/L shdr Body Location L neck/UT, SOR, rhomboid, infraspin, pec, distal Lat Mobilization Type Strumming Intensity/Depth Moderate Body Position Supine Comments manual STMs & MWM scapular AAROM cues slow movement Joint Mobilizations L scapulothoracic Joint L Direction protraction/retraction/ superior/inferior glide Grade II Body Position R SL Comments PROM, AAROM MWM /c STMs PT-OP-T Assessment and Plan Start: 09/06/23 16:57 Freq: Status: Active Protocol: Document 09/29/23 08:44 SP (Rec: 09/29/23 09:38 SP [id number]) Physical Therapy Assessment Goals Three Impairment Decreased function due to L shoulder pain Impairment UE Quickdash score 36 (20-39% impaired, score 20-39). Sharp pain rated 3/10. 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 09/26/23:5-6/10 achy pain goes away with heating pad. when reach any direction catches with pain. 09/29/23: reports when moves sharp pain 7-8/10 like changing gears large stick many directions Is getting a steering knob to help with comfort. LTG Duration 9 wks-11/11/23 progressing Two Impairment L shoulder pain with functional mobility Impairment Pain with picking objects off the ground and with reaching out with arm to the side and with lowering the arm after reaching overhead. Short Term Goal (STG) Improve RC and scapular stabilizer strength with pt able to reach to roller picker light objects off the ground without L shoulder pain. 09/29/23: updated he has been rolling rock on grounds vs roller picker. Reports 50# rock able roller picker with good mechanics no pain now. STG Duration 4 wks-10/07/23 progressing Residential Goal (LTG) Improve L shoulder and scapular stabilizer strength with pt able to reach fwd to fully extend the arm without pain (forward). LTG Duration 9 wks-11/11/23 One Impairment Pt lacks appropriate self care HEP. Short Term Goal (STG) Pt will be educated in self care for pain management. 09/13/23: Education in self care pain management of hot/ cold treatment. STG Duration 1 wk-09/16/23 (09/13/23: MET GOAL) Residential Goal (LTG) Pt will be educated in HEP of RC and scapular stabilizer strengthening ex's as well as core stabilization. 09/09/23: HEP: Active L shoulder ER (sit, sidelie, stand) and resistive ER (Lev1 TB issued) 09/29/23: issued putty for men's golf coach strengthening. Resisted serratus press for support scapular ROM carryover. LTG Duration 9 wks-11/11/23 updated Assessment Summary Assessment Pt improves scapular ROM with manual and increase resisted ther ex this tx. He continues to have no tingling in fingers . Provided theraputty for home for assist men's golf coach strength feels weak. Physical Therapy Plan Frequency and Duration Frequency of Treatment 2x/Week Duration of treatment (weeks) 9 Plan of Care Start Date 09/09/23 Plan of Care End Date 11/11/23 Therapeutic Interventions Therapeutic Interventions Home Exercise Program,Manual Therapy,Self-Care/Home Management,Soft Tissue Mobilization,Taping, Therapeutic Exercises Modalities Cold Pack/Ice Massage,Hot Packs Next Visit Focus/Plan Next Note Type Treatment Note Next Visit Plan KX. recheck resisted ext and IR stretch. 5th visit next tx. POC: L RC and scapular stabilizer strengthening, STM- UT/L shoulder, MWM-active ROM w/scap stab, general strengthening (UBE), HEP. Next: Review HEP of active shoulder ER sitting, sidelie ER strengthening & lat dorsi strengthening w Lev 1 TB. Try adding reclined mat ex's of active or AA shoulder ROM L shoulder strengthening, cont scap stabilizer strengthening (standing TBand ex), manual pec stretch. Modalities of heat/ice to end if needed.
--- NOTE | 2023-10-03 09:47 | PT.OTN ---
Current Diagnoses Other specified joint disorders, left shoulder (10/03/23) Physical Therapy Treatment Note PT-OP-A Visit Information Start: 09/06/23 16:57 Freq: Status: Active Protocol: Document 10/03/23 08:55 LRN (Rec: 10/03/23 09:47 LRN [id number]) Out-Patient Physical Therapy Visit Information Visit Information Visit Type Treatment Note Visit Start Time 08:55 Visit Stop Time 09:36 Total Visit Minutes 41 Visit Number 8 Evaluation Information Evaluation Date 09/09/23 Precautions Precautions Arthritis, Diabetes type II, Back pain. Cervical fusion at C3-C6; R distal clavicle resection, 2 Uni-knee arthroplasty, back surgery for wedge placed between L3, L4. PT-OP-B Current Condition Start: 09/06/23 16:57 Freq: Status: Active Protocol: Document 09/09/23 09:48 LRN (Rec: 09/09/23 10:32 LRN [id number]) Current Condition History of Current Condition Onset Date 6-7 months ago. Current Complaints Sharp pain in L shoulder with lowering of arm or reaching out. History of Current Condition Insidious onset of L shoulder pain and sometimes gets sharp pain in the shoulder. Has to use the R arm to help lift the shoulder. When lowering the arm gets a catch or tear. R shoulder is also sore, but doesn't have porter pains. States he has a tear in the L shoulder muscles per MRI. Prior Treatments and Tests [id number]-[id number] of supraspinatus at its insertion on the humeral head, partial- thickness tear involving distal infraspinatus, and partial-thickness tear involving distal subscapularis . Capsule superior anterior labral and anterior inferior labral tear, long head of biceps tendon is suggestive of moderate grade partial- thickness tear. Cortisone injection 1 month ago at inferior posterior acromion process. Has had 3 total injection. Future Testing and Treatments Planned Cortisone injection in the back for LE pain. 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 Personal Factors Other Personal Factors That May Effect Extensive tearing of L Therapy/Recovery supraspinatus, infraspinatus, & subscapularis ms, labrum, and long head of biceps; Arthritis, Diabetes type II, Back pain. Cervical fusion at C3-C6. PT-OP-C Subjective Start: 09/06/23 16:57 Freq: Status: Active Protocol: Document 10/03/23 08:55 LRN (Rec: 10/03/23 09:47 LRN [id number]) OP-PT Subjective Patient Comments Patient Comments Hands get sore from gripping. Patient Reported Progress Same PT-OP-E Functional Tests Start: 09/06/23 16:57 Freq: Status: Active Protocol: Document 09/09/23 09:48 LRN (Rec: 09/09/23 10:32 LRN [id number]) Functional Tests Apley's Scratch Test Action 1- Left scapula Action 1- Right scapula Action 2- Left T3 Action 2- Right C7 Action 3- Left L4 Action 3- Right L4 PT-OP-H Neuro Start: 09/06/23 16:57 Freq: Status: Active Protocol: Document 09/09/23 09:48 LRN (Rec: 09/09/23 10:32 LRN [id number]) Sensation Evaluation Gross Sensation Gross Sensation WNL PT-OP-J Posture/Palpation/Skin Start: 09/06/23 16:57 Freq: Status: Active Protocol: Document 09/09/23 09:48 LRN (Rec: 09/09/23 10:32 LRN [id number]) Posture Evaluation Position Sitting Head/C-Spine Posture Forward Head T-Spine Posture Increased Kyphosis Scapula Posture (L) Winged,(R) Winged Arm Posture (L) Internally Rotated,(R) Internally Rotated PT-OP-K Range of Motion Start: 09/06/23 16:57 Freq: Status: Active Protocol: Document 09/09/23 09:48 LRN (Rec: 09/09/23 10:32 LRN [id number]) Cervical Spine Range of Motion Cervical Spine Active Degrees Testing Position Sitting Flexion 25 Extension 38 Rotation Left 35 Rotation Right 42 Lateral Flexion Left 12 Lateral Flexion Right 12 Shoulder Goniometric Range of Motion Shoulder Right Active Testing Position Sitting Flexion 140 Extension 55 Abduction 150 External Rotation at 0 degrees Abduction 65 Internal Rotation Behind Back (text) L4 Comments Reach behind upperback/neck to C7. Left Active Testing Position Sitting Flexion 152 Extension 40 Abduction 158 External Rotation at 0 degrees Abduction 65 Internal Rotation Behind Back (text) L4 Comments Pain with return from flexion. Reach behind upperback/neck to T3. PT-OP-M Strength Start: 09/06/23 16:57 Freq: Status: Active Protocol: Document 09/09/23 09:48 LRN (Rec: 09/09/23 10:32 LRN [id number]) Shoulder Strength Shoulder Manual Muscle Testing Right Flexion 3 Fair Extension 3 Fair Abduction (C5) 5 Normal Adduction 5 Normal External Rotation 4+ Good+ Internal Rotation 4+ Good+ Left Flexion 3 Fair Extension 3 Fair Abduction (C5) 5 Normal Adduction 5 Normal External Rotation 4+ Good+ Internal Rotation 4+ Good+ PT-OP-Q Treatments Start: 09/06/23 16:57 Freq: Status: Active Protocol: Document 10/03/23 08:55 LRN (Rec: 10/03/23 09:47 LRN [id number]) Cardio Equipment Upper Body Ergometer (UBE) Duration (Minutes) 7 RPM 100 Seat Position 13 Height 3.5 Other 30 sec F/B Therapeutic Exercises Standing Exercises Shldr ER Standing Exercise Name Active shldr ER Side bilateral Reps/Minutes 2' IR stretch Standing Exercise Name reviewed HEP Side left Resistance AAROM Equipment Used towel over R shld, LUE grasp towel Reps/Minutes 5 reps x10 SH Comments good feedback stretch, able get further to allow cratch extension Standing Exercise Name HEP reviewed Side bilateral Resistance TB #4 dark blue Reps/Minutes 1x 15, 1x 10 Comments painfree, good form Manual Therapy Treatment Soft Tissue Mobilization Neck/L shdr Body Location L neck/UT, SOR, rhomboid, infraspin, pec, distal Lat Mobilization Type Strumming Intensity/Depth Moderate Body Position Supine Comments manual STMs & MWM scapular AAROM cues slow movement Joint Mobilizations L scapulothoracic Joint L Direction protraction/retraction/ superior/inferior glide Grade II Body Position R SL Comments PROM, AAROM MWM /c STMs PT-OP-T Assessment and Plan Start: 09/06/23 16:57 Freq: Status: Active Protocol: Document 10/03/23 08:55 LRN (Rec: 10/03/23 09:47 LRN [id number]) Physical Therapy Assessment Goals Three Impairment Decreased function due to L shoulder pain Impairment UE Quickdash score 36 (20-39% impaired, score 20-39). Sharp pain rated 3/10. 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 09/26/23:5-6/10 achy pain goes away with heating pad. when reach any direction catches with pain. 09/29/23: reports when moves sharp pain 7-8/10 like changing gears large stick many directions Is getting a steering knob to help with comfort. LTG Duration 9 wks-11/11/23 progressing Two Impairment L shoulder pain with functional mobility Impairment Pain with picking objects off the ground and with reaching out with arm to the side and with lowering the arm after reaching overhead. Short Term Goal (STG) Improve RC and scapular stabilizer strength with pt able to reach to pick up attendant light objects off the ground without L shoulder pain. 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 Reports 50# rock able pick up attendant with good mechanics no pain now. STG Duration 4 wks-10/07/23 progressing Mechanical Service Specialist Goal (LTG) Improve L shoulder and scapular stabilizer strength with pt able to reach fwd to fully extend the arm without pain (forward). LTG Duration 9 wks-11/11/23 One Impairment Pt lacks appropriate self care HEP. Short Term Goal (STG) Pt will be educated in self care for pain management. 09/13/23: Education in self care pain management of hot/ cold treatment. STG Duration 1 wk-09/16/23 (09/13/23: MET GOAL) Fdc Goal (LTG) Pt will be educated in HEP of RC and scapular stabilizer strengthening ex's as well as core stabilization. 09/09/23: HEP: Active L shoulder ER (sit, sidelie, stand) and resistive ER (Lev1 TB issued) 09/29/23: issued putty for seismograph computer strengthening. Resisted serratus press for support scapular ROM carryover. LTG Duration 9 wks-11/11/23 updated Assessment Summary Assessment Pt is familiar with last HEP issued, needs cuing for gentle stretching. R upper arm pain onset after UBE, resolved after STM. Decr neck/back discomfort and scap ROM with minimal suboccip release and scap/thoracic mob. Physical Therapy Plan Frequency and Duration Frequency of Treatment 2x/Week Duration of treatment (weeks) 9 Plan of Care Start Date 09/09/23 Plan of Care End Date 11/11/23 Next Visit Focus/Plan Next Note Type Treatment Note Next Visit Plan KX. Next: measure L shldr AROM for improvement. Review HEP of active shoulder ER sitting, sidelie ER strengthening & lat dorsi strengthening w Lev 1 TB. Try adding reclined mat ex's of active or AA shoulder ROM L shoulder strengthening, cont scap stabilizer strengthening (standing TBand ex). Modalities of heat/ice to end if needed. POC: L RC and scapular stabilizer strengthening, STM- UT/L shoulder, MWM-active shdr ROM w/scap stab, general strengthening (UBE), HEP.
--- NOTE | 2023-10-06 17:28 | PT.OTN ---
Addendum entered and electronically signed by Darby Lewis, PT 10/06/23 17:31: Adding AROM taken: Sitting: L shoulder: flex 160 deg's, AB 165 deg's, ext 42 deg's, IR (behind back) to T11, ER 55 deg's. R shoulder: flex 150 deg's, AB 125 deg's, ext 45 deg's, IR (behind back) to L2, ER 60 deg's. Original Note: Current Diagnoses Other specified joint disorders, left shoulder (10/06/23) Physical Therapy Treatment Note PT-OP-A Visit Information Start: 09/06/23 16:57 Freq: Status: Active Protocol: Document 10/06/23 09:05 LRN (Rec: 10/06/23 09:50 LRN [id number]) Out-Patient Physical Therapy Visit Information Visit Information Visit Type Progress Note Visit Start Time 09:06 Visit Stop Time 09:50 Total Visit Minutes 44 Visit Number 9 Evaluation Information Evaluation Date 09/09/23 Precautions Precautions Arthritis, Diabetes type II, Back pain. Cervical fusion at C3-C6; R distal clavicle resection, 2 Uni-knee arthroplasty, back surgery for wedge placed between L3, L4. PT-OP-B Current Condition Start: 09/06/23 16:57 Freq: Status: Active Protocol: Document 09/09/23 09:48 LRN (Rec: 09/09/23 10:32 LRN [id number]) Current Condition History of Current Condition Onset Date 6-7 months ago. Current Complaints Sharp pain in L shoulder with lowering of arm or reaching out. History of Current Condition Insidious onset of L shoulder pain and sometimes gets sharp pain in the shoulder. Has to use the R arm to help lift the shoulder. When lowering the arm gets a catch or tear. R shoulder is also sore, but doesn't have porter pains. States he has a tear in the L shoulder muscles per MRI. Prior Treatments and Tests [id number] of supraspinatus at its insertion on the humeral head, partial- thickness tear involving distal infraspinatus, and partial-thickness tear involving distal subscapularis . Capsule superior anterior labral and anterior inferior labral tear, long head of biceps tendon is suggestive of moderate grade partial- thickness tear. Cortisone injection 1 month ago at inferior posterior acromion process. Has had 3 total injection. Future Testing and Treatments Planned Cortisone injection in the back for LE pain. 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 Personal Factors Other Personal Factors That May Effect Extensive tearing of L Therapy/Recovery supraspinatus, infraspinatus, & subscapularis ms, labrum, and long head of biceps; Arthritis, Diabetes type II, Back pain. Cervical fusion at C3-C6. PT-OP-C Subjective Start: 09/06/23 16:57 Freq: Status: Active Protocol: Document 10/06/23 09:05 LRN (Rec: 10/06/23 09:50 LRN [id number]) OP-PT Subjective Patient Comments Patient Comments States generally sore, was not sore in L shoulder after last session. Neck is bothering him more. 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 Patient Questionnaires Quick Dash- Upper Extremity Quick Dash UE Score 38.63 Quick Dash UE Impairment 20 to 39% Impaired (Score 20- 39) PT-OP-E Functional Tests Start: 09/06/23 16:57 Freq: Status: Active Protocol: Document 09/09/23 09:48 LRN (Rec: 09/09/23 10:32 LRN [id number]) Functional Tests Apley's Scratch Test Action 1- Left scapula Action 1- Right scapula Action 2- Left T3 Action 2- Right C7 Action 3- Left L4 Action 3- Right L4 PT-OP-H Neuro Start: 09/06/23 16:57 Freq: Status: Active Protocol: Document 09/09/23 09:48 LRN (Rec: 09/09/23 10:32 LRN [id number]) Sensation Evaluation Gross Sensation Gross Sensation WNL PT-OP-J Posture/Palpation/Skin Start: 09/06/23 16:57 Freq: Status: Active Protocol: Document 09/09/23 09:48 LRN (Rec: 09/09/23 10:32 LRN [id number]) Posture Evaluation Position Sitting Head/C-Spine Posture Forward Head T-Spine Posture Increased Kyphosis Scapula Posture (L) Winged,(R) Winged Arm Posture (L) Internally Rotated,(R) Internally Rotated PT-OP-K Range of Motion Start: 09/06/23 16:57 Freq: Status: Active Protocol: Document 09/09/23 09:48 LRN (Rec: 09/09/23 10:32 LRN [id number]) Cervical Spine Range of Motion Cervical Spine Active Degrees Testing Position Sitting Flexion 25 Extension 38 Rotation Left 35 Rotation Right 42 Lateral Flexion Left 12 Lateral Flexion Right 12 Shoulder Goniometric Range of Motion Shoulder Right Active Testing Position Sitting Flexion 140 Extension 55 Abduction 150 External Rotation at 0 degrees Abduction 65 Internal Rotation Behind Back (text) L4 Comments Reach behind upperback/neck to C7. Left Active Testing Position Sitting Flexion 152 Extension 40 Abduction 158 External Rotation at 0 degrees Abduction 65 Internal Rotation Behind Back (text) L4 Comments Pain with return from flexion. Reach behind upperback/neck to T3. PT-OP-M Strength Start: 09/06/23 16:57 Freq: Status: Active Protocol: Document 09/09/23 09:48 LRN (Rec: 09/09/23 10:32 LRN [id number]) Shoulder Strength Shoulder Manual Muscle Testing Right Flexion 3 Fair Extension 3 Fair Abduction (C5) 5 Normal Adduction 5 Normal External Rotation 4+ Good+ Internal Rotation 4+ Good+ Left Flexion 3 Fair Extension 3 Fair Abduction (C5) 5 Normal Adduction 5 Normal External Rotation 4+ Good+ Internal Rotation 4+ Good+ PT-OP-Q Treatments Start: 09/06/23 16:57 Freq: Status: Active Protocol: Document 10/06/23 09:05 LRN (Rec: 10/06/23 09:50 LRN [id number]) Cardio Equipment Upper Body Ergometer (UBE) Duration (Minutes) 8 RPM 95 Seat Position 13 Height 3.5 Other 60 sec F/B, RX time 7'45 Therapeutic Exercises Sitting Exercises FF ball rolling along table Sitting Exercise Name Active shdr flex rolling ball fwd along table Side left Reps/Minutes 33' Comments Cuing to scap throughout for depression/retraction Standing Exercises Shldr ER Standing Exercise Name Active shldr ER Side bilateral Reps/Minutes 2' FF tball rolling up wall Standing Exercise Name initiated in PT: FF 1. tball wall 2. hand on wall doorframe Side left Resistance 55cm tball Equipment Used slide up wall Reps/Minutes 12 repse each Comments cued slow FF hold/breath IR stretch Standing Exercise Name reviewed HEP Side left Resistance AAROM Equipment Used towel over R shld, LUE grasp towel Reps/Minutes 5 reps x10 SH Comments good feedback stretch, able get further to allow cratch extension Standing Exercise Name HEP reviewed Side bilateral Resistance TB #4 dark blue Reps/Minutes 1x 15, 1x 10 Comments painfree, good form PT-OP-T Assessment and Plan Start: 09/06/23 16:57 Freq: Status: Active Protocol: Document 10/06/23 09:05 LRN (Rec: 10/06/23 09:50 LRN [id number]) Physical Therapy Assessment Rehab Potential Rehabilitation Potential Good Evaluation Complexity Number of Personal Factors/Comorbidities 3 or More Number of Body Systems Impaired 3 Clinical Presentation at Evaluation Stable Impairments Impairments Activity Tolerance,Pain, Posture,Strength Goals Three Impairment Decreased function due to L shoulder pain Impairment UE Quickdash score 36 (20-39% impaired, score 20-39). Sharp pain rated 3/10. 10/06/23: Has pain in L shoulder with WBing thru UEs (sit<>stand), hands hurt more notably. 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 09/26/23:5-6/10 achy pain goes away with heating pad. when reach any direction catches with pain. 09/29/23: reports when moves sharp pain 7-8/10 like changing gears large stick many directions Is getting a steering knob to help with comfort. 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 Has forearm > hand pain. LTG Duration 9 wks-11/11/23 (10/06/23: MET GOAL) Two Impairment L shoulder pain with functional mobility Impairment Pain with picking objects off the ground and with reaching out with arm to the side and with lowering the arm after reaching overhead. Short Term Goal (STG) Improve RC and scapular stabilizer strength with pt able to reach to pickler helper light objects off the ground without L shoulder pain. 09/29/23: updated he has been rolling rock on grounds vs pickler helper. Reports 50# rock able pickler helper with good mechanics no pain now. 10/06/23: Can reach up, but has pain in the L shoulder with lowering arm. STG Duration 4 wks-10/07/23 progressing 10/06/23 Correction Goal (LTG) Improve L shoulder and scapular stabilizer strength with pt able to reach fwd to fully extend the arm without pain (forward). 10/06/23: Pt able to reach forward, but has popping with discomfort at L shoulder. Able to reach forward if AB arm to start, then reaching fwd w/o pain. Not able to lower arm from max tolerated flexed position. LTG Duration 9 wks-11/11/23 progressing 10/06/23. One Impairment Pt lacks appropriate self care HEP. Short Term Goal (STG) Pt will be educated in self care for pain management. 09/13/23: Education in self care pain management of hot/ cold treatment. STG Duration 1 wk-09/16/23 (09/13/23: MET GOAL) Correction Goal (LTG) Pt will be educated in HEP of RC and scapular stabilizer strengthening ex's as well as core stabilization. 09/09/23: HEP: Active L shoulder ER (sit, sidelie, stand) and resistive ER (Lev1 TB issued) 09/29/23: issued putty for waiver analyst strengthening. Resisted serratus press for support scapular ROM carryover. LTG Duration 9 wks-11/11/23 updated Assessment Summary Assessment Pt is a 73 yo male who initially was seen 09/09/23 for s/p cortisone injection in L shldr with pain w/mvmt, pt MRI indicated extensive tearing of his L rotator cuff & labral tear. He has shown good improvement with bilateral shoulder AROM. There is popping in the L shoulder with reaching fwd and he has pain with lowering of the arm when in max tolerated flexion and is not able to control the lowering of his arm, as expected with severe RC dysfunction. Today his R brachium is hurting more than L shoulder and his neck is bothering him more with greater use of his UE's. The pt would benefit from further skilled physical therapy to improve scapular stabilization strength, maximize his function, and to progress onto a HEP. Physical Therapy Plan Frequency and Duration Frequency of Treatment 2x/Week Duration of treatment (weeks) 9 Plan of Care Start Date 09/09/23 Plan of Care End Date 11/11/23 Therapeutic Interventions Therapeutic Interventions Home Exercise Program,Manual Therapy,Self-Care/Home Management,Soft Tissue Mobilization,Therapeutic Activities,Therapeutic Exercises Modalities Cold Pack/Ice Massage,Hot Packs Next Visit Focus/Plan Next Note Type Treatment Note Next Visit Plan KX. Progress towards HEP ( goal #1) and improve scapular stabilization. Manual therapy to neck and L shoulder as needed. Review HEP of active shoulder ER sitting, sidelie ER strengthening & lat dorsi strengthening w Lev 1 TB. Try adding reclined mat ex's of active or AA shoulder ROM L shoulder strengthening, cont scap stabilizer strengthening (standing TBand ex). Modalities of heat/ice to end if needed. POC: L RC and scapular stabilizer strengthening, STM- UT/L shoulder, MWM-active shdr ROM w/scap stab, general strengthening (UBE), HEP.
--- NOTE | 2023-10-11 11:06 | PT.OTN ---
Current Diagnoses Other specified joint disorders, left shoulder (10/11/23) Physical Therapy Treatment Note PT-OP-A Visit Information Start: 09/06/23 16:57 Freq: Status: Active Protocol: Document 10/11/23 09:01 LRN (Rec: 10/11/23 11:04 LRN [id number]) Out-Patient Physical Therapy Visit Information Visit Information Visit Type Treatment Note Visit Start Time 09:01 Visit Stop Time 09:45 Total Visit Minutes 44 Visit Number 10 Evaluation Information Evaluation Date 09/09/23 Precautions Precautions Arthritis, Diabetes type II, Back pain. Cervical fusion at C3-C6; R distal clavicle resection, 2 Uni-knee arthroplasty, back surgery for wedge placed between L3, L4. PT-OP-B Current Condition Start: 09/06/23 16:57 Freq: Status: Active Protocol: Document 09/09/23 09:48 LRN (Rec: 09/09/23 10:32 LRN [id number]) Current Condition History of Current Condition Onset Date 6-7 months ago. Current Complaints Sharp pain in L shoulder with lowering of arm or reaching out. History of Current Condition Insidious onset of L shoulder pain and sometimes gets sharp pain in the shoulder. Has to use the R arm to help lift the shoulder. When lowering the arm gets a catch or tear. R shoulder is also sore, but doesn't have porter pains. States he has a tear in the L shoulder muscles per MRI. Prior Treatments and Tests ROF-Izso-egmjciarc of supraspinatus at its insertion on the humeral head, partial- thickness tear involving distal infraspinatus, and partial-thickness tear involving distal subscapularis . Capsule superior anterior labral and anterior inferior labral tear, long head of biceps tendon is suggestive of moderate grade partial- thickness tear. Cortisone injection 1 month ago at inferior posterior acromion process. Has had 3 total injection. Future Testing and Treatments Planned Cortisone injection in the back for LE pain. 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 Personal Factors Other Personal Factors That May Effect Extensive tearing of L Therapy/Recovery supraspinatus, infraspinatus, & subscapularis ms, labrum, and long head of biceps; Arthritis, Diabetes type II, Back pain. Cervical fusion at C3-C6. PT-OP-C Subjective Start: 09/06/23 16:57 Freq: Status: Active Protocol: Document 10/11/23 09:01 LRN (Rec: 10/11/23 11:04 LRN [id number]) OP-PT Subjective Patient Comments Patient Comments Stopped using the TB because it causes pain in L shoulder. Reaching backward from below is worst. His back is feeling better. PT-OP-E Functional Tests Start: 09/06/23 16:57 Freq: Status: Active Protocol: Document 09/09/23 09:48 LRN (Rec: 09/09/23 10:32 LRN [id number]) Functional Tests Apley's Scratch Test Action 1- Left scapula Action 1- Right scapula Action 2- Left T3 Action 2- Right C7 Action 3- Left L4 Action 3- Right L4 PT-OP-H Neuro Start: 09/06/23 16:57 Freq: Status: Active Protocol: Document 09/09/23 09:48 LRN (Rec: 09/09/23 10:32 LRN [id number]) Sensation Evaluation Gross Sensation Gross Sensation WNL PT-OP-J Posture/Palpation/Skin Start: 09/06/23 16:57 Freq: Status: Active Protocol: Document 09/09/23 09:48 LRN (Rec: 09/09/23 10:32 LRN [id number]) Posture Evaluation Position Sitting Head/C-Spine Posture Forward Head T-Spine Posture Increased Kyphosis Scapula Posture (L) Winged,(R) Winged Arm Posture (L) Internally Rotated,(R) Internally Rotated PT-OP-K Range of Motion Start: 09/06/23 16:57 Freq: Status: Active Protocol: Document 09/09/23 09:48 LRN (Rec: 09/09/23 10:32 LRN [id number]) Cervical Spine Range of Motion Cervical Spine Active Degrees Testing Position Sitting Flexion 25 Extension 38 Rotation Left 35 Rotation Right 42 Lateral Flexion Left 12 Lateral Flexion Right 12 Shoulder Goniometric Range of Motion Shoulder Right Active Testing Position Sitting Flexion 140 Extension 55 Abduction 150 External Rotation at 0 degrees Abduction 65 Internal Rotation Behind Back (text) L4 Comments Reach behind upperback/neck to C7. Left Active Testing Position Sitting Flexion 152 Extension 40 Abduction 158 External Rotation at 0 degrees Abduction 65 Internal Rotation Behind Back (text) L4 Comments Pain with return from flexion. Reach behind upperback/neck to T3. PT-OP-M Strength Start: 09/06/23 16:57 Freq: Status: Active Protocol: Document 09/09/23 09:48 LRN (Rec: 09/09/23 10:32 LRN [id number]) Shoulder Strength Shoulder Manual Muscle Testing Right Flexion 3 Fair Extension 3 Fair Abduction (C5) 5 Normal Adduction 5 Normal External Rotation 4+ Good+ Internal Rotation 4+ Good+ Left Flexion 3 Fair Extension 3 Fair Abduction (C5) 5 Normal Adduction 5 Normal External Rotation 4+ Good+ Internal Rotation 4+ Good+ PT-OP-Q Treatments Start: 09/06/23 16:57 Freq: Status: Active Protocol: Document 10/11/23 09:01 LRN (Rec: 10/11/23 11:04 LRN [id number]) Cardio Equipment Upper Body Ergometer (UBE) Duration (Minutes) 8 RPM 90 Seat Position 13 Height 3.5 Other 60 sec F/B Therapeutic Exercises Sidelying Exercises Shoulder IR Sidelying Exercise Name L Shoulder IR strengthening ( adding R shdr ex for symmetry) Side bilateral Resistance AROM Reps/Minutes 15x Shoulder ER Sidelying Exercise Name L Shoulder ER strengthening ( adding R shdr ex for symmetry) Side bilateral Resistance AROM Equipment Used towel roll under arm Reps/Minutes 15x Comments Cuing to limit lift to 30-35 degs. Sitting Exercises Shdr ER Sitting Exercise Name Active Shdr ER Side bilateral Reps/Minutes 15x Standing Exercises FF tball rolling up wall Standing Exercise Name initiated in PT: FF 1. tball wall 2. hand on wall doorframe Side left Resistance 55cm tball Equipment Used slide up wall Reps/Minutes 5x3 reps each Comments cued slow FF hold/breath IR stretch Standing Exercise Name IR stretch w/towel Side left Resistance AAROM Equipment Used towel over R shld, LUE grasp towel Reps/Minutes 5 reps x10 SH Comments good feedback stretch, able get further to allow cratch extension Standing Exercise Name Shoulder ext for mvmt & strength Side bilateral Resistance TB #4 dark blue Reps/Minutes 1x 15, 1x 10 Comments painfree, good form Rows Standing Exercise Name Row Side bilateral Resistance TB #4 Dark blue Reps/Minutes 15 reps each Comments cued elbows Manual Therapy Treatment Soft Tissue Mobilization Neck/L shdr Body Location 45 deg's reclined: L neck/UT Mobilization Type Strumming Intensity/Depth Moderate Body Position 45 reclined Manual Traction Cervical Details Gentle C. tx Body Position 45 recline Reps/Duration 3' PT-OP-T Assessment and Plan Start: 09/06/23 16:57 Freq: Status: Active Protocol: Document 10/11/23 09:01 LRN (Rec: 10/11/23 11:04 LRN [id number]) Physical Therapy Assessment Goals Three Impairment Decreased function due to L shoulder pain Impairment UE Quickdash score 36 (20-39% impaired, score 20-39). Sharp pain rated 3/10. 10/06/23: Has pain in L shoulder with WBing thru UEs (sit<>stand), hands hurt more notably. 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 09/26/23:5-6/10 achy pain goes away with heating pad. when reach any direction catches with pain. 09/29/23: reports when moves sharp pain 7-8/10 like changing gears large stick many directions Is getting a steering knob to help with comfort. 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 Has forearm > hand pain. LTG Duration 9 wks-11/11/23 (10/06/23: MET GOAL) Two Impairment L shoulder pain with functional mobility Impairment Pain with picking objects off the ground and with reaching out with arm to the side and with lowering the arm after reaching overhead. Short Term Goal (STG) Improve RC and scapular stabilizer strength with pt able to reach to picked edge sewing machine operator light objects off the ground without L shoulder pain. 09/29/23: updated he has been rolling rock on grounds vs picked edge sewing machine operator. 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 10/06/23: Can reach up, but has pain in the L shoulder with lowering arm. STG Duration 4 wks-10/07/23 progressing 10/06/23 Carder Blankets Goal (LTG) Improve L shoulder and scapular stabilizer strength with pt able to reach fwd to fully extend the arm without pain (forward). 10/06/23: Pt able to reach forward, but has popping with discomfort at L shoulder. Able to reach forward if AB arm to start, then reaching fwd w/o pain. Not able to lower arm from max tolerated flexed position. LTG Duration 9 wks-11/11/23 progressing 10/06/23. One Impairment Pt lacks appropriate self care HEP. Short Term Goal (STG) Pt will be educated in self care for pain management. 09/13/23: Education in self care pain management of hot/ cold treatment. STG Duration 1 wk-09/16/23 (09/13/23: MET GOAL) Longterm Goal (LTG) Pt will be educated in HEP of RC and scapular stabilizer strengthening ex's as well as core stabilization. 09/09/23: HEP: Active L shoulder ER (sit, sidelie, stand) and resistive ER (Lev1 TB issued) 09/29/23: issued putty for tailings man strengthening. Resisted serratus press for support scapular ROM carryover. LTG Duration 9 wks-11/11/23 updated Assessment Summary Assessment Pt appears to know his ex limits as he stops when he feels increasing discomfort. Vertigo onset rolling on plinth R to L for shldr ER/IR; therefore finished STM in 45 deg reclined position. Pt limited with IR reaching behind back with both arms due to weakness; therefore needs AAROM. Physical Therapy Plan Frequency and Duration Frequency of Treatment 2x/Week Duration of treatment (weeks) 9 Plan of Care Start Date 09/09/23 Plan of Care End Date 11/11/23 Next Visit Focus/Plan Next Note Type Treatment Note Next Visit Plan KX. Recommend pt seek referral for vestibular assessment after shoulder PT. Pt would like to work towards reaching behind the back w/o pain - add AAROM for reaching up back (to scratch). Progress towards HEP (goal #1) and improve scapular stabilization. Review HEP: lat dorsi strengthening w Lev 1 TB. Try adding reclined mat ex's of active or AA shoulder ROM L shoulder strengthening, cont scap stabilizer strengthening (standing TBand ex). Manual therapy to neck and L shoulder and heat/ice to end as needed. POC: L RC and scapular stabilizer strengthening, STM- UT/L shoulder, MWM-active shdr ROM w/scap stab, general strengthening (UBE), HEP.
--- NOTE | 2023-10-25 08:45 | PT.OTN ---
Current Diagnoses Other specified joint disorders, left shoulder (10/25/23) Physical Therapy Treatment Note PT-OP-A Visit Information Start: 09/06/23 16:57 Freq: Status: Active Protocol: Document 10/25/23 07:56 SP (Rec: 10/25/23 09:15 SP [id number]) Out-Patient Physical Therapy Visit Information Visit Information Visit Type Treatment Note Visit Note 12/10 post PN Visit Start Time 08:00 Visit Stop Time 08:45 Total Visit Minutes 45 Visit Number 11 Number of CHEFS Visits 1 Evaluation Information Evaluation Date 09/09/23 Precautions Precautions Arthritis, Diabetes type II, Back pain. Cervical fusion at C3-C6; R distal clavicle resection, 2 Uni-knee arthroplasty, back surgery for wedge placed between L3, L4. PT-OP-B Current Condition Start: 09/06/23 16:57 Freq: Status: Active Protocol: Document 09/09/23 09:48 LRN (Rec: 09/09/23 10:32 LRN [id number]) Current Condition History of Current Condition Onset Date 6-7 months ago. Current Complaints Sharp pain in L shoulder with lowering of arm or reaching out. History of Current Condition Insidious onset of L shoulder pain and sometimes gets sharp pain in the shoulder. Has to use the R arm to help lift the shoulder. When lowering the arm gets a catch or tear. R shoulder is also sore, but doesn't have porter pains. States he has a tear in the L shoulder muscles per MRI. Prior Treatments and Tests STP-Dbly-[id number] of supraspinatus at its insertion on the humeral head, partial- thickness tear involving distal infraspinatus, and partial-thickness tear involving distal subscapularis . Capsule superior anterior labral and anterior inferior labral tear, long head of biceps tendon is suggestive of moderate grade partial- thickness tear. Cortisone injection 1 month ago at inferior posterior acromion process. Has had 3 total injection. Future Testing and Treatments Planned Cortisone injection in the back for LE pain. 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 Personal Factors Other Personal Factors That May Effect Extensive tearing of L Therapy/Recovery supraspinatus, infraspinatus, & subscapularis ms, labrum, and long head of biceps; Arthritis, Diabetes type II, Back pain. Cervical fusion at C3-C6. PT-OP-C Subjective Start: 09/06/23 16:57 Freq: Status: Active Protocol: Document 10/25/23 07:56 SP (Rec: 10/25/23 09:15 SP [id number]) OP-PT Subjective Patient Comments Patient Comments Pt reports saw Dr Spears in the past 2 weeks and having some dizziness/vestibular issues that really needs to see a specialty PT for support . Dr Spears submitted a Vestibular PT referrral 2 weeks ago for assistance. Pt feels his L shoulder rehab is improving and at this point can progress on own. He is awaiting a new eval appt with Vestibular PT. PT-OP-E Functional Tests Start: 09/06/23 16:57 Freq: Status: Active Protocol: Document 09/09/23 09:48 LRN (Rec: 09/09/23 10:32 LRN [id number]) Functional Tests Apley's Scratch Test Action 1- Left scapula Action 1- Right scapula Action 2- Left T3 Action 2- Right C7 Action 3- Left L4 Action 3- Right L4 PT-OP-H Neuro Start: 09/06/23 16:57 Freq: Status: Active Protocol: Document 09/09/23 09:48 LRN (Rec: 09/09/23 10:32 LRN [id number]) Sensation Evaluation Gross Sensation Gross Sensation WNL PT-OP-J Posture/Palpation/Skin Start: 09/06/23 16:57 Freq: Status: Active Protocol: Document 09/09/23 09:48 LRN (Rec: 09/09/23 10:32 LRN [id number]) Posture Evaluation Position Sitting Head/C-Spine Posture Forward Head T-Spine Posture Increased Kyphosis Scapula Posture (L) Winged,(R) Winged Arm Posture (L) Internally Rotated,(R) Internally Rotated PT-OP-K Range of Motion Start: 09/06/23 16:57 Freq: Status: Active Protocol: Document 10/25/23 07:56 SP (Rec: 10/25/23 09:15 SP [id number]) Shoulder Goniometric Range of Motion Shoulder Left Active Shoulder ROM WFL No Testing Position Sitting Flexion 154 Extension 40 Abduction 175 External Rotation at 0 degrees Abduction 83 Internal Rotation Behind Back (text) T8 Comments AROM L shld seated (gains since 09/09): FF 156* - gain 4 deg ABD 178*- gain 17 deg ER 83*- gain 18 deg IR behind back improved from L4 to T8. Pain with eccentric return from flexion and ABD, need use RUE to support RUE. PT-OP-M Strength Start: 09/06/23 16:57 Freq: Status: Active Protocol: Document 09/09/23 09:48 LRN (Rec: 09/09/23 10:32 LRN [id number]) Shoulder Strength Shoulder Manual Muscle Testing Right Flexion 3 Fair Extension 3 Fair Abduction (C5) 5 Normal Adduction 5 Normal External Rotation 4+ Good+ Internal Rotation 4+ Good+ Left Flexion 3 Fair Extension 3 Fair Abduction (C5) 5 Normal Adduction 5 Normal External Rotation 4+ Good+ Internal Rotation 4+ Good+ PT-OP-Q Treatments Start: 09/06/23 16:57 Freq: Status: Active Protocol: Document 10/25/23 07:56 SP (Rec: 10/25/23 09:15 SP [id number]) Cardio Equipment Upper Body Ergometer (UBE) Duration (Minutes) 8 RPM 90 Seat Position 13 Height 3.5 Other 60 sec F/B Gym Equipment Cable Column (Body Solid) Rows Details cued LT engagement, no UT Resistance 2 plates (seated, 1 plate standing- split stance) Reps/Time x8 before needed to stop due to neck/UT recruitment seated, 8 reps each std pull down Details L shld concentric/eccentric AAROM into FF Resistance 2 plates Reps/Time x20 Therapeutic Exercises Sitting Exercises chest press Sitting Exercise Name assimulation machine at Thrive trial Resistance TB #2 Reps/Minutes x10 Comments tires shoulder but good resistance Shdr ER Sitting Exercise Name Active Shdr ER Side bilateral Resistance AROM Reps/Minutes 15x Comments muscle tires, unable add resistance do to limited ROM Standing Exercises FF tball rolling up wall Standing Exercise Name HEP reviewed hand on wall doorframe Side left Equipment Used slide up wall- almost full range Reps/Minutes 8 reps Comments cued slow FF extension Standing Exercise Name Shoulder ext for mvmt & strength Side bilateral Resistance TB #4 dark blue Reps/Minutes 1x 15, 1x 10 Comments painfree, good form PT-OP-T Assessment and Plan Start: 09/06/23 16:57 Freq: Status: Active Protocol: Document 10/25/23 07:56 SP (Rec: 10/25/23 09:15 SP [id number]) Physical Therapy Assessment Goals Three Impairment Decreased function due to L shoulder pain Impairment UE Quickdash score 36 (20-39% impaired, score 20-39). Sharp pain rated 3/10. 10/06/23: Has pain in L shoulder with WBing thru UEs (sit<>stand), hands hurt more notably. 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 09/26/23:5-6/10 achy pain goes away with heating pad. when reach any direction catches with pain. 09/29/23: reports when moves sharp pain 7-8/10 like changing gears large stick many directions Is getting a steering knob to help with comfort. 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 Has forearm > hand pain. LTG Duration 9 wks-11/11/23 (10/06/23: MET GOAL) Two Impairment L shoulder pain with functional mobility Impairment Pain with picking objects off the ground and with reaching out with arm to the side and with lowering the arm after reaching overhead. Short Term Goal (STG) Improve RC and scapular stabilizer strength with pt able to reach to worm picker light objects off the ground without L shoulder pain. 09/29/23: updated he has been rolling rock on grounds vs worm picker. Reports 50# rock able worm picker with good mechanics no pain now. 10/06/23: Can reach up, but has pain in the L shoulder with lowering arm. 10/25/23: GOAL MET: is able to worm picker heavy rocks in his yard/grounds 30-50 lbs with good body mechanics using nearby elevation to support back/shoulders. STG Duration 4 wks-10/07/23 GOAL MET [facility] Goal (LTG) Improve L shoulder and scapular stabilizer strength with pt able to reach fwd to fully extend the arm without pain (forward). 10/06/23: Progressing: Pt able to reach forward, but has popping with discomfort at L shoulder. Able to reach forward if AB arm to start, then reaching fwd w/o pain. Not able to lower arm from max tolerated flexed position. 10/25/23: needs to use RUE to support LUE forward reaching when needed, can reach OH out to side and scaption plane without pain but unweighted. LTG Duration 9 wks-11/11/23 progressing 10/25/23. One Impairment Pt lacks appropriate self care HEP. Short Term Goal (STG) Pt will be educated in self care for pain management. 09/13/23: Education in self care pain management of hot/ cold treatment. STG Duration 1 wk-09/16/23 (09/13/23: MET GOAL) Newspaper Inserter Goal (LTG) Pt will be educated in HEP of RC and scapular stabilizer strengthening ex's as well as core stabilization. 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 Resisted serratus press for support scapular ROM carryover. 10/25/23: Progressing: states TB at times is to much but does AROM and use of yard tools (pitch fork for wt: bicecp curl/shoulder rolls). LTG Duration 9 wks-11/11/23 updated Progress Towards Goals Progress Towards Goals Progressing Toward Goals Progress Comments AROM L shld seated (gains since 09/09): FF 156* - gain 4 deg ABD 178*- gain 17 deg ER 83*- gain 18 deg IR behind back improved from L4 to T8. Pain with eccentric return from flexion and ABD, need use RUE to support RUE. Assessment Summary Assessment Pt made gains with AROM L shoulder OH and out to side but continues to demonstrate weakness eccentric control lowering from FF, scaption, and ABD. Improves eccentric control but limited reps with cues for rhomboid and LT engagement and use of mirror with neutral back and CS for self awareness of compensations. 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 He feels his vestibular concerns is more pertinent at this time and wanting to DC his L shoulder encounter. CHEFS discussed pt feedback of DC and will complete DC today. Physical Therapy Plan Frequency and Duration Frequency of Treatment 2x/Week Duration of treatment (weeks) 9 Plan of Care Start Date 09/09/23 Plan of Care End Date 11/11/23 Therapeutic Interventions Therapeutic Interventions Home Exercise Program,Manual Therapy,Self-Care/Home Management,Soft Tissue Mobilization,Therapeutic Activities,Therapeutic Exercises Modalities Cold Pack/Ice Massage,Hot Packs Next Visit Focus/Plan Next Note Type Treatment Note Next Visit Plan KX Modifier. PT DC L shoulder encounter. Pt has a Vestibular PT referral and pt hoping to also add strengthening for his neck.
--- NOTE | 2023-10-25 11:03 | PT.OPDS ---
Current Diagnoses Other specified joint disorders, left shoulder (10/25/23) Visit Care Team Role Provider Type Tripp Spears MD Family Provider Physician Primary Care Provider Specialty: Internal Medicine Address: [address] [place] [address], [address], [place], [address] Email: [email or web address] Gavino Stratton MD Attending Provider Physician Referring Provider Specialty: Orthopedics Orthopedic Surgery Address: [address] [place] [address], [id number] Email: [email or web address] Visit Number Visit Number 11 Discharge Summary PT-OP-B Current Condition Start: 09/06/23 16:57 Freq: Status: Active Protocol: Document 09/09/23 09:48 LRN (Rec: 09/09/23 10:32 LRN [id number]) Current Condition History of Current Condition Onset Date 6-7 months ago. Current Complaints Sharp pain in L shoulder with lowering of arm or reaching out. History of Current Condition Insidious onset of L shoulder pain and sometimes gets sharp pain in the shoulder. Has to use the R arm to help lift the shoulder. When lowering the arm gets a catch or tear. R shoulder is also sore, but doesn't have porter pains. States he has a tear in the L shoulder muscles per MRI. Prior Treatments and Tests RIH-Ldnk-qlmbrrtas of supraspinatus at its insertion on the humeral head, partial- thickness tear involving distal infraspinatus, and partial-thickness tear involving distal subscapularis . Capsule superior anterior labral and anterior inferior labral tear, long head of biceps tendon is suggestive of moderate grade partial- thickness tear. Cortisone injection 1 month ago at inferior posterior acromion process. Has had 3 total injection. Future Testing and Treatments Planned Cortisone injection in the back for LE pain. 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 Personal Factors Other Personal Factors That May Effect Extensive tearing of L Therapy/Recovery supraspinatus, infraspinatus, & subscapularis ms, labrum, and long head of biceps; Arthritis, Diabetes type II, Back pain. Cervical fusion at C3-C6. PT-OP-C Subjective Start: 09/06/23 16:57 Freq: Status: Active Protocol: Document 10/25/23 07:56 SP (Rec: 10/25/23 09:15 SP [id number]) OP-PT Subjective Patient Comments Patient Comments Pt reports saw Dr Spears in the past 2 weeks and having some dizziness/vestibular issues that really needs to see a specialty PT for support . Dr Spears submitted a Vestibular PT referrral 2 weeks ago for assistance. Pt feels his L shoulder rehab is improving and at this point can progress on own. He is awaiting a new eval appt with Vestibular PT. PT-OP-E Functional Tests Start: 09/06/23 16:57 Freq: Status: Active Protocol: Document 09/09/23 09:48 LRN (Rec: 09/09/23 10:32 LRN [id number]) Functional Tests Apley's Scratch Test Action 1- Left scapula Action 1- Right scapula Action 2- Left T3 Action 2- Right C7 Action 3- Left L4 Action 3- Right L4 PT-OP-H Neuro Start: 09/06/23 16:57 Freq: Status: Active Protocol: Document 09/09/23 09:48 LRN (Rec: 09/09/23 10:32 LRN [id number]) Sensation Evaluation Gross Sensation Gross Sensation WNL PT-OP-J Posture/Palpation/Skin Start: 09/06/23 16:57 Freq: Status: Active Protocol: Document 09/09/23 09:48 LRN (Rec: 09/09/23 10:32 LRN [id number]) Posture Evaluation Position Sitting Head/C-Spine Posture Forward Head T-Spine Posture Increased Kyphosis Scapula Posture (L) Winged,(R) Winged Arm Posture (L) Internally Rotated,(R) Internally Rotated PT-OP-K Range of Motion Start: 09/06/23 16:57 Freq: Status: Active Protocol: Document 10/25/23 07:56 SP (Rec: 10/25/23 09:15 SP [id number]) Shoulder Goniometric Range of Motion Shoulder Left Active Shoulder ROM WFL No Testing Position Sitting Flexion 154 Extension 40 Abduction 175 External Rotation at 0 degrees Abduction 83 Internal Rotation Behind Back (text) T8 Comments AROM L shld seated (gains since 09/09): FF 156* - gain 4 deg ABD 178*- gain 17 deg ER 83*- gain 18 deg IR behind back improved from L4 to T8. Pain with eccentric return from flexion and ABD, need use RUE to support RUE. PT-OP-M Strength Start: 09/06/23 16:57 Freq: Status: Active Protocol: Document 09/09/23 09:48 LRN (Rec: 09/09/23 10:32 LRN [id number]) Shoulder Strength Shoulder Manual Muscle Testing Right Flexion 3 Fair Extension 3 Fair Abduction (C5) 5 Normal Adduction 5 Normal External Rotation 4+ Good+ Internal Rotation 4+ Good+ Left Flexion 3 Fair Extension 3 Fair Abduction (C5) 5 Normal Adduction 5 Normal External Rotation 4+ Good+ Internal Rotation 4+ Good+ PT-OP-T Assessment and Plan Start: 09/06/23 16:57 Freq: Status: Active Protocol: Document 10/25/23 10:53 LRN (Rec: 10/25/23 11:02 LRN [id number]) Physical Therapy Assessment Goals Three Impairment Decreased function due to L shoulder pain Impairment UE Quickdash score 36 (20-39% impaired, score 20-39). Sharp pain rated 3/10. 10/06/23: Has pain in L shoulder with WBing thru UEs (sit<>stand), hands hurt more notably. 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 09/26/23:5-6/10 achy pain goes away with heating pad. when reach any direction catches with pain. 09/29/23: reports when moves sharp pain 7-8/10 like changing gears large stick many directions Is getting a steering knob to help with comfort. 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 Has forearm > hand pain. LTG Duration 9 wks-11/11/23 (10/06/23: MET GOAL) Two Impairment L shoulder pain with functional mobility Impairment Pain with picking objects off the ground and with reaching out with arm to the side and with lowering the arm after reaching overhead. Short Term Goal (STG) Improve RC and scapular stabilizer strength with pt able to reach to pick up attendant light objects off the ground without L shoulder pain. 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 Reports 50# rock able pick up attendant with good mechanics no pain now. 10/06/23: Can reach up, but has pain in the L shoulder with lowering arm. 10/25/23: GOAL MET: is able to pick up attendant heavy rocks in his yard/grounds 30-50 lbs with good body mechanics using nearby elevation to support back/shoulders. STG Duration 4 wks-10/07/23 GOAL MET Penitentiary Goal (LTG) Improve L shoulder and scapular stabilizer strength with pt able to reach fwd to fully extend the arm without pain (forward). 10/06/23: Progressing: Pt able to reach forward, but has popping with discomfort at L shoulder. Able to reach forward if AB arm to start, then reaching fwd w/o pain. Not able to lower arm from max tolerated flexed position. 10/25/23: needs to use RUE to support LUE forward reaching when needed, can reach OH out to side and scaption plane without pain but unweighted. LTG Duration 9 wks-11/11/23 (10/25/23: NOT MET GOAL) One Impairment Pt lacks appropriate self care HEP. Short Term Goal (STG) Pt will be educated in self care for pain management. 09/13/23: Education in self care pain management of hot/ cold treatment. STG Duration 1 wk-09/16/23 (09/13/23: MET GOAL) Penitentiary Goal (LTG) Pt will be educated in HEP of RC and scapular stabilizer strengthening ex's as well as core stabilization. 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 Resisted serratus press for support scapular ROM carryover. 10/25/23: Progressing: states TB at times is to much but does AROM and use of yard tools (pitch fork for wt: bicecp curl/shoulder rolls). LTG Duration 9 wks-11/11/23 (10/25/23: NOT MET GOAL) Assessment Summary Assessment Pt has improved overall with L shoulder AROM reaching overhead and out to side, but is not able to control eccentric lowering of the arm as expected due to the rotator cuff tears. The pt is having vestibular dysfunction and feels these concerns to reduce dizziness is more pertinent; therefore has requested DC to return for treatment of his vestibular dysfunction and continued therapy for his neck /shoulders. Physical Therapy Plan Discharge Physical Therapy Discharge Reasons Patient Request Discharge Comments DC current L shoulder rehab to begin Vestibular rehab tomorrow, and pt hoping to also add strengthening for his neck/shoulders.
== END 2023-10-26 14:53 | disposition home or self-care (01) ==
LOC: PHYS 08:00
PROVIDERS: Family Provider Internal Medicine; PCP Internal Medicine; Referring Provider Orthopaedic Surgery; Visit Provider Orthopaedic Surgery
DX: M25.812 Other specified joint disorders, left shoulder (principal)
CPT/HCPCS: 97110; 97140; 97161; 97535

== ENCOUNTER → 2023-11-04 13:48 | Outpatient (CLI) | payer MEDICARE, BC, SELFPAY ==
[2023-05-16 10:11] VITALS: BMI 26.4
[2023-11-04 15:48] LABS: Hemoglobin A1C% w Est Avg Glu 8.5 % (4.0-6.0)
[2023-11-04 16:05] LABS: BUN Creatinine Ratio 14.6 (6-22); Blood Urea Nitrogen 13 mg/dL (9-20); Calcium 9.6 mg/dL (8.4-10.2); Carbon Dioxide 21 mmol/L (22-32); Chloride 102 mmol/L (98-107); Estimated Glomerular Filt Rate > 60 mL/min (>60); Glucose 207 mg/dL (80-110); HEMOLYSIS < 15 (0-50); Potassium 3.8 mmol/L (3.4-5.1); Sodium 135 mmol/L (137-145)
== END ==
PROVIDERS: Family Provider Internal Medicine; PCP Internal Medicine; Referring Provider Internal Medicine; Visit Provider Internal Medicine
DX: E11.65 Type 2 diabetes mellitus with hyperglycemia (principal); I10 Essential (primary) hypertension
CPT/HCPCS: 36415; 80048; 83036

== ENCOUNTER 2023-12-20 09:45 | Outpatient (RCR) | payer MEDICARE, BC, SELFPAY ==
[2023-05-16 10:11] VITALS: BMI 26.4
--- NOTE | 2023-10-26 12:39 | PT.OIE ---
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) Dizziness and giddiness (10/26/23) Past Medical History (Last Reviewed 05/21/23 @ 16:36 by Kristen Javier DO) Atrial fibrillation (03/12/14) Chronic cholecystitis COPD (chronic obstructive pulmonary disease) Esophageal dysmotility Essential hypertension (11/16/17) History of cardioversion History of COVID-19 (~2020) Hyperlipidemia Hypothyroidism Paroxysmal atrial fibrillation PTSD (post-traumatic stress disorder) 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/17) Type 2 diabetes mellitus without complication (11/16/17) Unspecified asthma (06/08/11) Past Surgical History (Last Reviewed 05/21/23 @ 16:36 by Kristen Javier DO) H/O vasectomy History of arthroscopy of right shoulder History of carpal tunnel repair History of knee replacement Hx of arthroscopy of left knee Hx of arthroscopy of right knee Hx of bilateral cataract extraction Hx of eye surgery Hx of fusion of cervical spine (2017) Hx of shoulder surgery Status post cholecystectomy Status post hernia repair Visit Care Team Role Provider Type Tripp Spears MD Attending Provider Physician Family Provider Primary Care Provider Referring Provider Specialty: Internal Medicine Address: [address] [place] [address], [address], [facility] Email: [email or web address] Physical Therapy Initial Evaluation PT-OP-A Visit Information Start: 10/26/23 12:24 Freq: Status: Active Protocol: Document 10/26/23 12:00 DCW (Rec: 10/26/23 12:39 DCW [id number]) Out-Patient Physical Therapy Visit Information Visit Information Visit Type Initial Evaluation Visit Start Time 12:00 Visit Stop Time 12:25 Total Visit Minutes 25 Visit Number 1 Number of ACTIVE DIRECTORY ADMINISTRATOR Visits 0 Evaluation Information Evaluation Date 10/26/23 PT-OP-B Current Condition Start: 10/26/23 12:24 Freq: Status: Active Protocol: Document 10/26/23 12:00 DCW (Rec: 10/26/23 12:39 DCW [id number]) Current Condition History of Current Condition Onset Date One month history Current Complaints Positional vertigo History of Current Condition Pt is a 73 year old male complaining of a one month history of motion-induced vertigo. Pt reports episodes last a few seconds. Symptoms are provoked by Looking up or down, or getting into/out of bed. Pt denies recent hearing changes, tinnitus, diplopia, dysarthria, discoordination, or decreased mentation/ consciousness. Pt reports symptoms are waxing/waning in nature. 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 PT-OP-C Subjective Start: 10/26/23 12:24 Freq: Status: Active Protocol: Document 10/26/23 12:00 DCW (Rec: 10/26/23 12:39 DCW [id number]) OP-PT Subjective Patient Comments Patient Comments It's actually been feeling better this past week. Patient Reported Progress Improving Patient Questionnaires Dizziness Handicap Inventory DHI Score 52% DHI Functional Impairment 40 to 59% Impaired (Score 40- 59) PT-OP-O Vestibular Start: 10/26/23 12:24 Freq: Status: Active Protocol: Document 10/26/23 12:00 DCW (Rec: 10/26/23 12:39 DCW [id number]) Vestibular Assessment Visual Testing Smooth Pursuits Horizontal WNL Smooth Pursuits Vertical WNL Saccades Horizontal WNL Saccades Vertical WNL Positional Testing [place]-Hallpike Negative Left,Negative Right Rolling Test Negative Left,Negative Right PT-OP-Q Treatments Start: 10/26/23 12:24 Freq: Status: Active Protocol: Document 10/26/23 12:00 DCW (Rec: 10/26/23 12:39 DCW [id number]) Canalithic Repositioning BPPV Treatment Brittney Affected Canal(s) Left Posterior? Reps x1 Comments Modified Brittney PT-OP-T Assessment and Plan Start: 10/26/23 12:24 Freq: Status: Active Protocol: Document 10/26/23 12:00 DCW (Rec: 10/26/23 12:39 DCW [id number]) Physical Therapy Assessment Rehab Potential Rehabilitation Potential Good Evaluation Complexity Number of Personal Factors/Comorbidities 1-2 Number of Body Systems Impaired 1-2 Clinical Presentation at Evaluation Unstable Assessment Summary Assessment Pt positional testing entirely negative today. Due to pt's subjective complaints, as well as pt's long history of recurrent BPPV, a left-sided modified Brittney was performed, as pt did feel a little something in left [place]- Hallpike. If pt continues to complain of ongoing symptoms with negative positional testing, may need a more complete vestibular assessment , but will attempt to retest positional testing next visit if pt's symptoms persist. Physical Therapy Plan Frequency and Duration Frequency of Treatment 2x/Week Plan of Care Start Date 10/26/23 Plan of Care End Date 12/10/23 Therapeutic Interventions Therapeutic Interventions Canalithic Repositioning,Home Exercise Program,Manual Therapy,Neuromuscular Re- education,Patient/Caregiver Education,Self-Care/Home Management,Therapeutic Exercises,Vestibular Rehabilitation Next Visit Focus/Plan Next Note Type Treatment Note Next Visit Plan Positional testing, CRM as indicated
--- NOTE | 2023-10-26 12:39 | PT.OPPOC ---
Physical, Occupational & Speech Therapy At 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) Dizziness and giddiness (10/26/23) Visit Care Team Role Provider Type Tripp Spears MD Attending Provider Physician Family Provider Primary Care Provider Referring Provider Specialty: Internal Medicine Address: [address] [place] [address], [address], [facility] Email: [email or web address] Plan Of Care PT-OP-T Assessment and Plan Start: 10/26/23 12:24 Freq: Status: Active Protocol: Document 10/26/23 12:00 DCW (Rec: 10/26/23 12:39 DCW [id number]) Physical Therapy Assessment Rehab Potential Rehabilitation Potential Good Evaluation Complexity Number of Personal Factors/Comorbidities 1-2 Number of Body Systems Impaired 1-2 Clinical Presentation at Evaluation Unstable Assessment Summary Assessment Pt positional testing entirely negative today. Due to pt's subjective complaints, as well as pt's long history of recurrent BPPV, a left-sided modified Brittney was performed, as pt did feel a little something in left Carmen- Hallpike. If pt continues to complain of ongoing symptoms with negative positional testing, may need a more complete vestibular assessment , but will attempt to retest positional testing next visit if pt's symptoms persist. Physical Therapy Plan Frequency and Duration Frequency of Treatment 2x/Week Plan of Care Start Date 10/26/23 Plan of Care End Date 12/10/23 Therapeutic Interventions Therapeutic Interventions Canalithic Repositioning,Home Exercise Program,Manual Therapy,Neuromuscular Re- education,Patient/Caregiver Education,Self-Care/Home Management,Therapeutic Exercises,Vestibular Rehabilitation Next Visit Focus/Plan Next Note Type Treatment Note Next Visit Plan Positional testing, CRM as indicated Plan of Care Dates Plan of Care Start Date 10/26/23 Plan of Care End Date 12/10/23 Electronically Signed by: Kal Felix, PT 10/26/23 [id number] If you are in agreement with this Plan of Care, please return a signed and dated copy. I have reviewed this Plan of Care and certify that the skilled therapy services above are required to meet the patient?s needs. Physician Signature Date Printed Name and Credentials Clinical Instructor Signature Printed Name and Credentials
--- NOTE | 2023-10-27 14:25 | PT.OTN ---
Current Diagnoses Congenital malformation of inner ear (10/27/23) Dizziness and giddiness (10/27/23) Physical Therapy Treatment Note PT-OP-A Visit Information Start: 10/26/23 12:24 Freq: Status: Active Protocol: Document 10/27/23 13:45 DCW (Rec: 10/27/23 14:25 DCW [id number]) Out-Patient Physical Therapy Visit Information Visit Information Visit Type Treatment Note Visit Start Time 13:45 Visit Stop Time 14:10 Total Visit Minutes 25 Visit Number 2 Number of JUNIOR GRAPHIC DESIGNER Visits 0 Evaluation Information Evaluation Date 10/26/23 PT-OP-B Current Condition Start: 10/26/23 12:24 Freq: Status: Active Protocol: Document 10/26/23 12:00 DCW (Rec: 10/26/23 12:39 DCW [id number]) Current Condition History of Current Condition Onset Date One month history Current Complaints Positional vertigo History of Current Condition Pt is a 73 year old male complaining of a one month history of motion-induced vertigo. Pt reports episodes last a few seconds. Symptoms are provoked by Looking up or down, or getting into/out of bed. Pt denies recent hearing changes, tinnitus, diplopia, dysarthria, discoordination, or decreased mentation/ consciousness. Pt reports symptoms are waxing/waning in nature. 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 PT-OP-C Subjective Start: 10/26/23 12:24 Freq: Status: Active Protocol: Document 10/27/23 13:45 DCW (Rec: 10/27/23 14:24 DCW [id number]) OP-PT Subjective Patient Comments Patient Comments Has not had any rotational vertigo, but has been having a few instances of feeling suddenly off balance PT-OP-O Vestibular Start: 10/26/23 12:24 Freq: Status: Active Protocol: Document 10/27/23 13:45 DCW (Rec: 10/27/23 14:24 DCW [id number]) Vestibular Assessment Positional Testing Carmen-Hallpike Positive Right,Upbeating,< 60 Seconds PT-OP-Q Treatments Start: 10/26/23 12:24 Freq: Status: Active Protocol: Document 10/27/23 13:45 DCW (Rec: 10/27/23 14:24 DCW [id number]) Manual Therapy Treatment Soft Tissue Mobilization Cervical Spine Body Location Paraspinals, Suboccipitals Mobilization Type Sustained Pressure,Trigger Point Release Body Position Sitting Canalithic Repositioning BPPV Treatment Brittney Affected Canal(s) Right Posterior? Reps x1 Comments Modified Brittney PT-OP-T Assessment and Plan Start: 10/26/23 12:24 Freq: Status: Active Protocol: Document 10/27/23 13:45 DCW (Rec: 10/27/23 14:24 DCW [id number]) Physical Therapy Assessment Impairments Impairments Balance,Functional Activities, Functional Mobility,Vestibular Goals Two Impairment Dizziness with positional changes Birth Attendant Goal (LTG) Pt to report no instances of dizziness when performing bed mobility for one full month. LTG Duration 12/27/23 Assessment Summary Assessment Very mild nystagmus today with right Diux-Hallpike with table in reverse Trendelenburg position due to decreased cervical ROM. Performed modified right-sided Brittney maneuver. Will plan to continue to perform positional testing as needed, will also likely assess for cervicogenic dizziness to determine effect of cervical pain on dizziness . Physical Therapy Plan Frequency and Duration Frequency of Treatment 2x/Week Plan of Care Start Date 10/26/23 Plan of Care End Date 12/10/23 Therapeutic Interventions Therapeutic Interventions Canalithic Repositioning,Home Exercise Program,Manual Therapy,Neuromuscular Re- education,Patient/Caregiver Education,Self-Care/Home Management,Therapeutic Exercises,Vestibular Rehabilitation Next Visit Focus/Plan Next Note Type Treatment Note Next Visit Plan Positional testing, CRM as indicated
--- NOTE | 2023-11-08 17:22 | PT.OTN ---
Current Diagnoses Unspecified disorder of vestibular function, unspecified ear (11/08/23) Pain in unspecified shoulder (11/08/23) Cervicalgia (11/08/23) Congenital malformation of inner ear (11/08/23) Dizziness and giddiness (11/08/23) Physical Therapy Treatment Note PT-OP-A Visit Information Start: 10/26/23 12:24 Freq: Status: Active Protocol: Document 11/08/23 16:49 DCW (Rec: 11/08/23 17:22 DCW [id number]) Out-Patient Physical Therapy Visit Information Visit Information Visit Type Treatment Note Visit Start Time 16:49 Visit Stop Time 17:15 Total Visit Minutes 26 Visit Number 3 Number of FELLED SEAM OPERATOR CHAINSTITCH Visits 0 Evaluation Information Evaluation Date 10/26/23 PT-OP-B Current Condition Start: 10/26/23 12:24 Freq: Status: Active Protocol: Document 10/26/23 12:00 DCW (Rec: 10/26/23 12:39 DCW [id number]) Current Condition History of Current Condition Onset Date One month history Current Complaints Positional vertigo History of Current Condition Pt is a 73 year old male complaining of a one month history of motion-induced vertigo. Pt reports episodes last a few seconds. Symptoms are provoked by Looking up or down, or getting into/out of bed. Pt denies recent hearing changes, tinnitus, diplopia, dysarthria, discoordination, or decreased mentation/ consciousness. Pt reports symptoms are waxing/waning in nature. 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 PT-OP-C Subjective Start: 10/26/23 12:24 Freq: Status: Active Protocol: Document 11/08/23 16:49 DCW (Rec: 11/08/23 17:22 DCW [id number]) OP-PT Subjective Patient Comments Patient Comments Dizziness improving following change in medication, but still present. PT-OP-O Vestibular Start: 10/26/23 12:24 Freq: Status: Active Protocol: Document 11/08/23 16:49 DCW (Rec: 11/08/23 17:22 DCW [id number]) Vestibular Assessment Positional Testing Cash-Hallpike Negative Left,Negative Right PT-OP-Q Treatments Start: 10/26/23 12:24 Freq: Status: Active Protocol: Document 11/08/23 16:49 DCW (Rec: 11/08/23 17:22 DCW [id number]) Manual Therapy Treatment Soft Tissue Mobilization Cervical Spine Body Location Paraspinals, Suboccipitals Mobilization Type Sustained Pressure,Trigger Point Release Body Position Sitting PT-OP-T Assessment and Plan Start: 10/26/23 12:24 Freq: Status: Active Protocol: Document 11/08/23 16:49 DCW (Rec: 11/08/23 17:22 [facility] [id number]) Physical Therapy Assessment Assessment Summary Assessment Positional testing negative today, no further complaints of dizziness. May need to assess cervical/shoulder component of dizziness/balance dysfunction. Physical Therapy Plan Frequency and Duration Frequency of Treatment 2x/Week Plan of Care Start Date 10/26/23 Plan of Care End Date 12/10/23 Therapeutic Interventions Therapeutic Interventions Canalithic Repositioning,Home Exercise Program,Manual Therapy,Neuromuscular Re- education,Patient/Caregiver Education,Self-Care/Home Management,Therapeutic Exercises,Vestibular Rehabilitation Next Visit Focus/Plan Next Note Type Treatment Note Next Visit Plan Positional testing, CRM as indicated
--- NOTE | 2023-11-29 11:13 | PT.OTN ---
Current Diagnoses Unspecified disorder of vestibular function, unspecified ear (11/29/23) Pain in unspecified shoulder (11/29/23) Cervicalgia (11/29/23) Congenital malformation of inner ear (11/29/23) Dizziness and giddiness (11/29/23) Physical Therapy Treatment Note PT-OP-A Visit Information Start: 10/26/23 12:24 Freq: Status: Active Protocol: Document 11/29/23 10:30 DCW (Rec: 11/29/23 11:13 DCW [id number]) Out-Patient Physical Therapy Visit Information Visit Information Visit Type Progress Note Visit Start Time 10:30 Visit Stop Time 11:15 Visit Number 4 Number of CHARTER COACH DRIVER Visits 0 Evaluation Information Evaluation Date 10/26/23 PT-OP-B Current Condition Start: 10/26/23 12:24 Freq: Status: Active Protocol: Document 10/26/23 12:00 DCW (Rec: 10/26/23 12:39 DCW [id number]) Current Condition History of Current Condition Onset Date One month history Current Complaints Positional vertigo History of Current Condition Pt is a 73 year old male complaining of a one month history of motion-induced vertigo. Pt reports episodes last a few seconds. Symptoms are provoked by Looking up or down, or getting into/out of bed. Pt denies recent hearing changes, tinnitus, diplopia, dysarthria, discoordination, or decreased mentation/ consciousness. Pt reports symptoms are waxing/waning in nature. 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 PT-OP-C Subjective Start: 10/26/23 12:24 Freq: Status: Active Protocol: Document 11/29/23 10:30 DCW (Rec: 11/29/23 11:13 DCW [id number]) OP-PT Subjective Patient Comments Patient Comments The dizzy has gone away, I had a medication change, and it's really not bothering me any more. Continues to feel concerned about his shoulder/ neck. OP-PT Pain Assessment Location L shoulder Pain Location Details Left shoulder and cervical Scale Used Numeric (0 - 10) Other Pain Aggravating Factors Looking down PT-OP-F Manual Assessment Start: 11/29/23 10:29 Freq: Status: Active Protocol: Document 11/29/23 10:30 DCW (Rec: 11/29/23 11:13 DCW [id number]) Manual Assessments Soft Tissue Assessment Soft Tissue Mobility Assessment Tenderness to palpation 3/4: Pain with wincing along B suboccipitals, L upper trap PT-OP-K Range of Motion Start: 11/29/23 10:29 Freq: Status: Active Protocol: Document 11/29/23 10:30 DCW (Rec: 11/29/23 11:13 DCW [id number]) Cervical Spine Range of Motion Cervical Spine Active Degrees Testing Position Sitting Flexion 45 Extension 25 Rotation Left 50 Rotation Right 42 Lateral Flexion Left 20 Lateral Flexion Right 15 Comments Prior cervical fusion Shoulder Goniometric Range of Motion Shoulder Left Active Testing Position Sitting Flexion 170 Abduction 180 External Rotation at 0 degrees Abduction 60 Internal Rotation Behind Back (text) T6 PT-OP-L Special Tests Start: 11/29/23 10:29 Freq: Status: Active Protocol: Document 11/29/23 10:30 DCW (Rec: 11/29/23 11:13 DCW [id number]) Special Tests Cervical Spine Special Tests Foraminal Compression Test Results Negative Passive Neck Flexion Test Results Pain/Stiffness in suboccipitals Spurling's Test Test Results Negative Shoulder Special Tests Lift-Off Rotator Cuff Test Results Negative bilaterally Drop Arm Rotator Cuff Test Results Positive left Belly Press Test Results Negative bilaterally PT-OP-M Strength Start: 11/29/23 10:29 Freq: Status: Active Protocol: Document 11/29/23 10:30 DCW (Rec: 11/29/23 11:13 DCW [id number]) Shoulder Strength Shoulder Manual Muscle Testing Right Flexion 4 Good Abduction (C5) 4 Good External Rotation 4- Good- Internal Rotation 4+ Good+ Left Flexion 4- Good- Abduction (C5) 4 Good External Rotation 4- Good- Internal Rotation 4+ Good+ PT-OP-O Vestibular Start: 10/26/23 12:24 Freq: Status: Active Protocol: Document 11/08/23 16:49 DCW (Rec: 11/08/23 17:22 DCW [id number]) Vestibular Assessment Positional Testing Carmen-Hallpike Negative Left,Negative Right PT-OP-Q Treatments Start: 10/26/23 12:24 Freq: Status: Active Protocol: Document 01/30/24 10:30 DCW (Rec: 11/29/23 11:13 DCW [id number]) Manual Therapy Treatment Soft Tissue Mobilization Cervical Spine Body Location Paraspinals, Suboccipitals Mobilization Type Sustained Pressure,Trigger Point Release Body Position Sitting PT-OP-T Assessment and Plan Start: 10/26/23 12:24 Freq: Status: Active Protocol: Document 11/29/23 10:30 DCW (Rec: 11/29/23 11:13 DCW [id number]) Physical Therapy Assessment Goals Three Impairment Limited cervical mobility secondary to increased muscle tone Penitentiary Goal (LTG) Pt to demonstrate increased cervical rotation to 35 degrees bilaterally in order to improve ability to turn head while driving LTG Duration 01/28/24 Two Impairment Dizziness with positional changes Impairment Pain with picking objects off the ground and with reaching out with arm to the side and with lowering the arm after reaching overhead. Grocery Manager Goal (LTG) Pt to report no instances of dizziness when performing bed mobility for one full month. LTG Duration 12/27/23 Assessment Summary Assessment Vertigo doing well at this point. Still struggling some with left shoulder and left cervical tone/tightness. Limited cervical mobility and increased muscle tone throughout suboccipitals resulting in increased pain and headaches. Should benefit from continued therapeutic intervention focusing on STM, flexibility, and cervical/ shoulder strengthening. Physical Therapy Plan Frequency and Duration Frequency of Treatment 2x/Week Plan of Care Start Date 11/29/23 Plan of Care End Date 01/28/24 Therapeutic Interventions Therapeutic Interventions Canalithic Repositioning,Home Exercise Program,Manual Therapy,Neuromuscular Re- education,Patient/Caregiver Education,Self-Care/Home Management,Therapeutic Exercises,Vestibular Rehabilitation Next Visit Focus/Plan Next Note Type Treatment Note Next Visit Plan Positional testing, CRM as indicated, Shoulder/cervical STM
--- NOTE | 2023-11-29 11:14 | PT.OPPOC ---
Physical, Occupational & Speech Therapy At 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) Dizziness and giddiness (11/29/23) Visit Care Team Role Provider Type Tripp Spears MD Attending Provider Physician Family Provider Primary Care Provider Referring Provider Specialty: Internal Medicine Address: [address] [place] [address], [address], [place] Email: [email or web address] Plan Of Care PT-OP-T Assessment and Plan Start: 10/26/23 12:24 Freq: Status: Active Protocol: Document 11/29/23 10:30 DCW (Rec: 11/29/23 11:13 DCW [id number]) Physical Therapy Assessment Goals Three Impairment Limited cervical mobility secondary to increased muscle tone Solar Energy Installation Manager Goal (LTG) Pt to demonstrate increased cervical rotation to 35 degrees bilaterally in order to improve ability to turn head while driving LTG Duration 01/28/24 Two Impairment Dizziness with positional changes Impairment Pain with picking objects off the ground and with reaching out with arm to the side and with lowering the arm after reaching overhead. Solar Energy Installation Manager Goal (LTG) Pt to report no instances of dizziness when performing bed mobility for one full month. LTG Duration 12/27/23 Assessment Summary Assessment Vertigo doing well at this point. Still struggling some with left shoulder and left cervical tone/tightness. Limited cervical mobility and increased muscle tone throughout suboccipitals resulting in increased pain and headaches. Should benefit from continued therapeutic intervention focusing on STM, flexibility, and cervical/ shoulder strengthening. Physical Therapy Plan Frequency and Duration Frequency of Treatment 2x/Week Plan of Care Start Date 11/29/23 Plan of Care End Date 01/28/24 Therapeutic Interventions Therapeutic Interventions Canalithic Repositioning,Home Exercise Program,Manual Therapy,Neuromuscular Re- education,Patient/Caregiver Education,Self-Care/Home Management,Therapeutic Exercises,Vestibular Rehabilitation Next Visit Focus/Plan Next Note Type Treatment Note Next Visit Plan Positional testing, CRM as indicated, Shoulder/cervical STM Plan of Care Dates Plan of Care Start Date 11/29/23 Plan of Care End Date 01/28/24 Electronically Signed by: Kal Felix, PT 11/29/23 [id number] If you are in agreement with this Plan of Care, please return a signed and dated copy. I have reviewed this Plan of Care and certify that the skilled therapy services above are required to meet the patient?s needs. Physician Signature Date Printed Name and Credentials Clinical Instructor Signature Printed Name and Credentials
--- NOTE | 2023-12-02 11:13 | PT.OTN ---
Current Diagnoses Unspecified disorder of vestibular function, unspecified ear (12/02/23) Pain in unspecified shoulder (12/02/23) Cervicalgia (12/02/23) Congenital malformation of inner ear (12/02/23) Dizziness and giddiness (12/02/23) Physical Therapy Treatment Note PT-OP-A Visit Information Start: 10/26/23 12:24 Freq: Status: Active Protocol: Document 12/02/23 10:30 DCW (Rec: 12/02/23 11:13 DCW [id number]) Out-Patient Physical Therapy Visit Information Visit Information Visit Type Treatment Note Visit Start Time 10:30 Visit Stop Time 11:15 Visit Number 5 Number of LIQUEFIED NATURAL GAS OPERATOR Visits 0 Evaluation Information Evaluation Date 10/26/23 PT-OP-B Current Condition Start: 10/26/23 12:24 Freq: Status: Active Protocol: Document 10/26/23 12:00 DCW (Rec: 10/26/23 12:39 DCW [id number]) Current Condition History of Current Condition Onset Date One month history Current Complaints Positional vertigo History of Current Condition Pt is a 73 year old male complaining of a one month history of motion-induced vertigo. Pt reports episodes last a few seconds. Symptoms are provoked by Looking up or down, or getting into/out of bed. Pt denies recent hearing changes, tinnitus, diplopia, dysarthria, discoordination, or decreased mentation/ consciousness. Pt reports symptoms are waxing/waning in nature. 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 PT-OP-C Subjective Start: 10/26/23 12:24 Freq: Status: Active Protocol: Document 12/02/23 10:30 DCW (Rec: 12/02/23 11:13 DCW [id number]) OP-PT Subjective Patient Comments Patient Comments Pt admits his neck is a little tight today, has been doing work tearing out and replacing his fireplace. PT-OP-F Manual Assessment Start: 11/29/23 10:29 Freq: Status: Active Protocol: Document 11/29/23 10:30 DCW (Rec: 11/29/23 11:13 DCW [id number]) Manual Assessments Soft Tissue Assessment Soft Tissue Mobility Assessment Tenderness to palpation 3/4: Pain with wincing along B suboccipitals, L upper trap PT-OP-K Range of Motion Start: 11/29/23 10:29 Freq: Status: Active Protocol: Document 11/29/23 10:30 DCW (Rec: 11/29/23 11:13 DCW [id number]) Cervical Spine Range of Motion Cervical Spine Active Degrees Testing Position Sitting Flexion 45 Extension 25 Rotation Left 50 Rotation Right 42 Lateral Flexion Left 20 Lateral Flexion Right 15 Comments Prior cervical fusion Shoulder Goniometric Range of Motion Shoulder Left Active Testing Position Sitting Flexion 170 Abduction 180 External Rotation at 0 degrees Abduction 60 Internal Rotation Behind Back (text) T6 PT-OP-L Special Tests Start: 11/29/23 10:29 Freq: Status: Active Protocol: Document 11/29/23 10:30 DCW (Rec: 11/29/23 11:13 DCW [id number]) Special Tests Cervical Spine Special Tests Foraminal Compression Test Results Negative Passive Neck Flexion Test Results Pain/Stiffness in suboccipitals Spurling's Test Test Results Negative Shoulder Special Tests Lift-Off Rotator Cuff Test Results Negative bilaterally Drop Arm Rotator Cuff Test Results Positive left Belly Press Test Results Negative bilaterally PT-OP-M Strength Start: 11/29/23 10:29 Freq: Status: Active Protocol: Document 11/29/23 10:30 DCW (Rec: 11/29/23 11:13 DCW [id number]) Shoulder Strength Shoulder Manual Muscle Testing Right Flexion 4 Good Abduction (C5) 4 Good External Rotation 4- Good- Internal Rotation 4+ Good+ Left Flexion 4- Good- Abduction (C5) 4 Good External Rotation 4- Good- Internal Rotation 4+ Good+ PT-OP-O Vestibular Start: 10/26/23 12:24 Freq: Status: Active Protocol: Document 11/08/23 16:49 DCW (Rec: 11/08/23 17:22 DCW [id number]) Vestibular Assessment Positional Testing [place]-Hallpike Negative Left,Negative Right PT-OP-Q Treatments Start: 10/26/23 12:24 Freq: Status: Active Protocol: Document 12/02/23 10:30 DCW (Rec: 12/02/23 11:13 DCW [id number]) Cardio Equipment Upper Body Ergometer (UBE) Duration (Minutes) 6 RPM 60 Seat Position 13 Height 4.5 Therapeutic Exercises Standing Exercises Flexion Standing Exercise Name Shoulder Flexion Side bilateral Equipment Used 3# Abduction Standing Exercise Name Shoulder Abduction Side bilateral Equipment Used 3# Manual Therapy Treatment Soft Tissue Mobilization Cervical Spine Body Location Paraspinals, Suboccipitals Mobilization Type Sustained Pressure,Trigger Point Release Body Position Sitting Manual Traction Cervical Details Cervical traction Body Position Supine PT-OP-T Assessment and Plan Start: 10/26/23 12:24 Freq: Status: Active Protocol: Document 12/02/23 10:30 DCW (Rec: 12/02/23 11:13 DCW [id number]) Physical Therapy Assessment Goals Three Impairment Limited cervical mobility secondary to increased muscle tone Retirement Goal (LTG) Pt to demonstrate increased cervical rotation to 35 degrees bilaterally in order to improve ability to turn head while driving LTG Duration 01/28/24 Two Impairment Dizziness with positional changes Impairment Pain with picking objects off the ground and with reaching out with arm to the side and with lowering the arm after reaching overhead. Computer Methods Analyst Goal (LTG) Pt to report no instances of dizziness when performing bed mobility for one full month. LTG Duration 12/27/23 Assessment Summary Assessment Pt tolerated treatment well today. Trial of shoulder strengthening, pt noted some general pain/weakness especially moving into bilateral abduction. Good response to STM. Physical Therapy Plan Frequency and Duration Frequency of Treatment 2x/Week Plan of Care Start Date 11/29/23 Plan of Care End Date 01/28/24 Therapeutic Interventions Therapeutic Interventions Canalithic Repositioning,Home Exercise Program,Manual Therapy,Neuromuscular Re- education,Patient/Caregiver Education,Self-Care/Home Management,Therapeutic Exercises,Vestibular Rehabilitation Next Visit Focus/Plan Next Note Type Treatment Note Next Visit Plan Positional testing, CRM as indicated, Shoulder/cervical STM
--- NOTE | 2023-12-05 10:27 | PT.OTN ---
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) Dizziness and giddiness (12/05/23) Physical Therapy Treatment Note PT-OP-A Visit Information Start: 10/26/23 12:24 Freq: Status: Active Protocol: Document 12/05/23 09:45 DCW (Rec: 12/05/23 10:27 DCW [id number]) Out-Patient Physical Therapy Visit Information Visit Information Visit Type Treatment Note Visit Start Time 09:45 Visit Stop Time 10:30 Visit Number 6 Number of ANIMAL PATHOLOGY TEACHER Visits 0 Evaluation Information Evaluation Date 10/26/23 PT-OP-B Current Condition Start: 10/26/23 12:24 Freq: Status: Active Protocol: Document 10/26/23 12:00 DCW (Rec: 10/26/23 12:39 DCW [id number]) Current Condition History of Current Condition Onset Date One month history Current Complaints Positional vertigo History of Current Condition Pt is a 73 year old male complaining of a one month history of motion-induced vertigo. Pt reports episodes last a few seconds. Symptoms are provoked by Looking up or down, or getting into/out of bed. Pt denies recent hearing changes, tinnitus, diplopia, dysarthria, discoordination, or decreased mentation/ consciousness. Pt reports symptoms are waxing/waning in nature. 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 PT-OP-C Subjective Start: 10/26/23 12:24 Freq: Status: Active Protocol: Document 12/05/23 09:45 DCW (Rec: 12/05/23 10:27 DCW [id number]) OP-PT Subjective Patient Comments Patient Comments Pt notes he had increased tension in his neck this morning, mainly when he was standing at the sink washing dishes, which caused him to spend an extended period of time looking down into neck flexion PT-OP-F Manual Assessment Start: 11/29/23 10:29 Freq: Status: Active Protocol: Document 11/29/23 10:30 DCW (Rec: 11/29/23 11:13 DCW [id number]) Manual Assessments Soft Tissue Assessment Soft Tissue Mobility Assessment Tenderness to palpation 3/4: Pain with wincing along B suboccipitals, L upper trap PT-OP-K Range of Motion Start: 11/29/23 10:29 Freq: Status: Active Protocol: Document 11/29/23 10:30 DCW (Rec: 11/29/23 11:13 DCW [id number]) Cervical Spine Range of Motion Cervical Spine Active Degrees Testing Position Sitting Flexion 45 Extension 25 Rotation Left 50 Rotation Right 42 Lateral Flexion Left 20 Lateral Flexion Right 15 Comments Prior cervical fusion Shoulder Goniometric Range of Motion Shoulder Left Active Testing Position Sitting Flexion 170 Abduction 180 External Rotation at 0 degrees Abduction 60 Internal Rotation Behind Back (text) T6 PT-OP-L Special Tests Start: 11/29/23 10:29 Freq: Status: Active Protocol: Document 11/29/23 10:30 DCW (Rec: 11/29/23 11:13 DCW [id number]) Special Tests Cervical Spine Special Tests Foraminal Compression Test Results Negative Passive Neck Flexion Test Results Pain/Stiffness in suboccipitals Spurling's Test Test Results Negative Shoulder Special Tests Lift-Off Rotator Cuff Test Results Negative bilaterally Drop Arm Rotator Cuff Test Results Positive left Belly Press Test Results Negative bilaterally PT-OP-M Strength Start: 11/29/23 10:29 Freq: Status: Active Protocol: Document 11/29/23 10:30 DCW (Rec: 11/29/23 11:13 DCW [id number]) Shoulder Strength Shoulder Manual Muscle Testing Right Flexion 4 Good Abduction (C5) 4 Good External Rotation 4- Good- Internal Rotation 4+ Good+ Left Flexion 4- Good- Abduction (C5) 4 Good External Rotation 4- Good- Internal Rotation 4+ Good+ PT-OP-O Vestibular Start: 10/26/23 12:24 Freq: Status: Active Protocol: Document 11/08/23 16:49 DCW (Rec: 11/08/23 17:22 DCW [id number]) Vestibular Assessment Positional Testing Carmen-Hallpike Negative Left,Negative Right PT-OP-Q Treatments Start: 10/26/23 12:24 Freq: Status: Active Protocol: Document 12/05/23 09:45 DCW (Rec: 12/05/23 10:27 DCW [id number]) Cardio Equipment Upper Body Ergometer (UBE) Duration (Minutes) 6 RPM 60 Seat Position 13 Height 4.5 Therapeutic Exercises Standing Exercises Wall walk Standing Exercise Name Walk ball up wall Side left Equipment Used Yellow Comments Flexion, Abduction Flexion Standing Exercise Name Shoulder Flexion Side bilateral Equipment Used 3# Abduction Standing Exercise Name Shoulder Abduction Side bilateral Equipment Used 3# Manual Therapy Treatment Soft Tissue Mobilization Cervical Spine Body Location Paraspinals, Suboccipitals Mobilization Type Sustained Pressure,Trigger Point Release Body Position Sitting Manual Traction Cervical Details Cervical traction Body Position Supine PT-OP-T Assessment and Plan Start: 10/26/23 12:24 Freq: Status: Active Protocol: Document 12/05/23 09:45 DCW (Rec: 12/05/23 10:27 DCW [id number]) Physical Therapy Assessment Impairments Impairments Balance,Functional Activities, Functional Mobility,Pain, Posture,ROM,Strength,Tone, Vestibular Goals Three Impairment Limited cervical mobility secondary to increased muscle tone Rolfer Goal (LTG) Pt to demonstrate increased cervical rotation to 35 degrees bilaterally in order to improve ability to turn head while driving LTG Duration 01/28/24 Two Impairment Dizziness with positional changes Impairment Pain with picking objects off the ground and with reaching out with arm to the side and with lowering the arm after reaching overhead. Rolfer Goal (LTG) Pt to report no instances of dizziness when performing bed mobility for one full month. LTG Duration 12/27/23 Assessment Summary Assessment Pt did better with shoulder strengthening for a brief period of time, however after 5-6 reps, began experiencing increased left-sided pain. Good response to STM and traction Physical Therapy Plan Frequency and Duration Frequency of Treatment 2x/Week Plan of Care Start Date 11/29/23 Plan of Care End Date 01/28/24 Therapeutic Interventions Therapeutic Interventions Canalithic Repositioning,Home Exercise Program,Manual Therapy,Neuromuscular Re- education,Patient/Caregiver Education,Self-Care/Home Management,Therapeutic Exercises,Vestibular Rehabilitation Next Visit Focus/Plan Next Note Type Treatment Note Next Visit Plan Positional testing, CRM as indicated, Shoulder/cervical STM
--- NOTE | 2023-12-16 10:32 | PT.OTN ---
Current Diagnoses Unspecified disorder of vestibular function, unspecified ear (12/16/23) Pain in unspecified shoulder (12/16/23) Cervicalgia (12/16/23) Congenital malformation of inner ear (12/16/23) Dizziness and giddiness (12/16/23) Physical Therapy Treatment Note PT-OP-A Visit Information Start: 10/26/23 12:24 Freq: Status: Active Protocol: Document 12/16/23 09:45 DCW (Rec: 12/16/23 10:32 DCW [id number]) Out-Patient Physical Therapy Visit Information Visit Information Visit Type Treatment Note Visit Start Time 09:45 Visit Stop Time 10:30 Visit Number 7 Number of GIMP BUTTONHOLE MACHINE OPERATOR Visits 0 Evaluation Information Evaluation Date 10/26/23 PT-OP-B Current Condition Start: 10/26/23 12:24 Freq: Status: Active Protocol: Document 10/26/23 12:00 DCW (Rec: 10/26/23 12:39 DCW [id number]) Current Condition History of Current Condition Onset Date One month history Current Complaints Positional vertigo History of Current Condition Pt is a 73 year old male complaining of a one month history of motion-induced vertigo. Pt reports episodes last a few seconds. Symptoms are provoked by Looking up or down, or getting into/out of bed. Pt denies recent hearing changes, tinnitus, diplopia, dysarthria, discoordination, or decreased mentation/ consciousness. Pt reports symptoms are waxing/waning in nature. 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 PT-OP-C Subjective Start: 10/26/23 12:24 Freq: Status: Active Protocol: Document 12/16/23 09:45 DCW (Rec: 12/16/23 10:32 DCW [id number]) OP-PT Subjective Patient Comments Patient Comments I'd rather be home working on my [employer] my [employer]. PT-OP-F Manual Assessment Start: 11/29/23 10:29 Freq: Status: Active Protocol: Document 11/29/23 10:30 DCW (Rec: 11/29/23 11:13 DCW [id number]) Manual Assessments Soft Tissue Assessment Soft Tissue Mobility Assessment Tenderness to palpation 3/4: Pain with wincing along B suboccipitals, L upper trap PT-OP-K Range of Motion Start: 11/29/23 10:29 Freq: Status: Active Protocol: Document 11/29/23 10:30 DCW (Rec: 11/29/23 11:13 DCW [id number]) Cervical Spine Range of Motion Cervical Spine Active Degrees Testing Position Sitting Flexion 45 Extension 25 Rotation Left 50 Rotation Right 42 Lateral Flexion Left 20 Lateral Flexion Right 15 Comments Prior cervical fusion Shoulder Goniometric Range of Motion Shoulder Left Active Testing Position Sitting Flexion 170 Abduction 180 External Rotation at 0 degrees Abduction 60 Internal Rotation Behind Back (text) T6 PT-OP-L Special Tests Start: 11/29/23 10:29 Freq: Status: Active Protocol: Document 11/29/23 10:30 DCW (Rec: 11/29/23 11:13 DCW [id number]) Special Tests Cervical Spine Special Tests Foraminal Compression Test Results Negative Passive Neck Flexion Test Results Pain/Stiffness in suboccipitals Spurling's Test Test Results Negative Shoulder Special Tests Lift-Off Rotator Cuff Test Results Negative bilaterally Drop Arm Rotator Cuff Test Results Positive left Belly Press Test Results Negative bilaterally PT-OP-M Strength Start: 11/29/23 10:29 Freq: Status: Active Protocol: Document 11/29/23 10:30 DCW (Rec: 11/29/23 11:13 DCW [id number]) Shoulder Strength Shoulder Manual Muscle Testing Right Flexion 4 Good Abduction (C5) 4 Good External Rotation 4- Good- Internal Rotation 4+ Good+ Left Flexion 4- Good- Abduction (C5) 4 Good External Rotation 4- Good- Internal Rotation 4+ Good+ PT-OP-O Vestibular Start: 10/26/23 12:24 Freq: Status: Active Protocol: Document 11/08/23 16:49 DCW (Rec: 11/08/23 17:22 DCW [id number]) Vestibular Assessment Positional Testing Carmen-Hallpike Negative Left,Negative Right PT-OP-Q Treatments Start: 10/26/23 12:24 Freq: Status: Active Protocol: Document 12/16/23 09:45 DCW (Rec: 12/16/23 10:32 DCW [id number]) Cardio Equipment Upper Body Ergometer (UBE) Duration (Minutes) 6 RPM 60 Seat Position 13 Height 4.5 Therapeutic Exercises Standing Exercises Extension Standing Exercise Name Shoulder Extension Side bilateral Resistance Green Overhead Press Standing Exercise Name Overhead Press Side bilateral Resistance 3# Flexion Standing Exercise Name Shoulder Flexion Side bilateral Equipment Used 3# Abduction Standing Exercise Name Shoulder Abduction Side bilateral Equipment Used 3# Manual Therapy Treatment Soft Tissue Mobilization Cervical Spine Body Location Paraspinals, Suboccipitals Mobilization Type Sustained Pressure,Trigger Point Release Body Position Sitting Manual Traction Cervical Details Cervical traction Body Position Supine PT-OP-T Assessment and Plan Start: 10/26/23 12:24 Freq: Status: Active Protocol: Document 12/16/23 09:45 DCW (Rec: 12/16/23 10:32 DCW [id number]) Physical Therapy Assessment Impairments Impairments Balance,Functional Activities, Functional Mobility,Pain, Posture,ROM,Strength,Tone, Vestibular Goals Three Impairment Limited cervical mobility secondary to increased muscle tone Group Home Goal (LTG) Pt to demonstrate increased cervical rotation to 35 degrees bilaterally in order to improve ability to turn head while driving LTG Duration 01/28/24 Two Impairment Dizziness with positional changes Impairment Pain with picking objects off the ground and with reaching out with arm to the side and with lowering the arm after reaching overhead. Trim Setter Helper Goal (LTG) Pt to report no instances of dizziness when performing bed mobility for one full month. LTG Duration 12/27/23 Assessment Summary Assessment Still some discomfort with overhead activities/ strengthening, but showing some improvement over the past few weeks. Continue to increase shoulder strength/ mobility, Cervical STM Physical Therapy Plan Frequency and Duration Frequency of Treatment 2x/Week Plan of Care Start Date 11/29/23 Plan of Care End Date 01/28/24 Therapeutic Interventions Therapeutic Interventions Canalithic Repositioning,Home Exercise Program,Manual Therapy,Neuromuscular Re- education,Patient/Caregiver Education,Self-Care/Home Management,Therapeutic Exercises,Vestibular Rehabilitation Next Visit Focus/Plan Next Note Type Treatment Note Next Visit Plan Positional testing, CRM as indicated, Shoulder/cervical STM
--- NOTE | 2023-12-20 10:31 | PT.OTN ---
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) Dizziness and giddiness (12/20/23) Physical Therapy Treatment Note PT-OP-A Visit Information Start: 10/26/23 12:24 Freq: Status: Active Protocol: Document 12/20/23 09:45 DCW (Rec: 12/20/23 10:31 DCW [id number]) Out-Patient Physical Therapy Visit Information Visit Information Visit Type Treatment Note Visit Start Time 09:45 Visit Stop Time 10:30 Visit Number 8 Number of TUBE WRAPPER Visits 0 Evaluation Information Evaluation Date 10/26/23 PT-OP-B Current Condition Start: 10/26/23 12:24 Freq: Status: Active Protocol: Document 10/26/23 12:00 DCW (Rec: 10/26/23 12:39 DCW [id number]) Current Condition History of Current Condition Onset Date One month history Current Complaints Positional vertigo History of Current Condition Pt is a 73 year old male complaining of a one month history of motion-induced vertigo. Pt reports episodes last a few seconds. Symptoms are provoked by Looking up or down, or getting into/out of bed. Pt denies recent hearing changes, tinnitus, diplopia, dysarthria, discoordination, or decreased mentation/ consciousness. Pt reports symptoms are waxing/waning in nature. 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 PT-OP-C Subjective Start: 10/26/23 12:24 Freq: Status: Active Protocol: Document 12/20/23 09:45 DCW (Rec: 12/20/23 10:31 DCW [id number]) OP-PT Subjective Patient Comments Patient Comments Pt notes his allergies are driving me nuts today. PT-OP-F Manual Assessment Start: 11/29/23 10:29 Freq: Status: Active Protocol: Document 11/29/23 10:30 DCW (Rec: 11/29/23 11:13 DCW [id number]) Manual Assessments Soft Tissue Assessment Soft Tissue Mobility Assessment Tenderness to palpation 3/4: Pain with wincing along B suboccipitals, L upper trap PT-OP-K Range of Motion Start: 11/29/23 10:29 Freq: Status: Active Protocol: Document 11/29/23 10:30 DCW (Rec: 11/29/23 11:13 DCW [id number]) Cervical Spine Range of Motion Cervical Spine Active Degrees Testing Position Sitting Flexion 45 Extension 25 Rotation Left 50 Rotation Right 42 Lateral Flexion Left 20 Lateral Flexion Right 15 Comments Prior cervical fusion Shoulder Goniometric Range of Motion Shoulder Left Active Testing Position Sitting Flexion 170 Abduction 180 External Rotation at 0 degrees Abduction 60 Internal Rotation Behind Back (text) T6 PT-OP-L Special Tests Start: 11/29/23 10:29 Freq: Status: Active Protocol: Document 11/29/23 10:30 DCW (Rec: 11/29/23 11:13 DCW [id number]) Special Tests Cervical Spine Special Tests Foraminal Compression Test Results Negative Passive Neck Flexion Test Results Pain/Stiffness in suboccipitals Spurling's Test Test Results Negative Shoulder Special Tests Lift-Off Rotator Cuff Test Results Negative bilaterally Drop Arm Rotator Cuff Test Results Positive left Belly Press Test Results Negative bilaterally PT-OP-M Strength Start: 11/29/23 10:29 Freq: Status: Active Protocol: Document 11/29/23 10:30 DCW (Rec: 11/29/23 11:13 DCW [id number]) Shoulder Strength Shoulder Manual Muscle Testing Right Flexion 4 Good Abduction (C5) 4 Good External Rotation 4- Good- Internal Rotation 4+ Good+ Left Flexion 4- Good- Abduction (C5) 4 Good External Rotation 4- Good- Internal Rotation 4+ Good+ PT-OP-O Vestibular Start: 10/26/23 12:24 Freq: Status: Active Protocol: Document 11/08/23 16:49 DCW (Rec: 11/08/23 17:22 DCW [id number]) Vestibular Assessment Positional Testing Carmen-Hallpike Negative Left,Negative Right PT-OP-Q Treatments Start: 10/26/23 12:24 Freq: Status: Active Protocol: Document 12/20/23 09:45 DCW (Rec: 12/20/23 10:31 DCW [id number]) Cardio Equipment Upper Body Ergometer (UBE) Duration (Minutes) 6 RPM 60 Seat Position 13 Height 4.5 Therapeutic Exercises Standing Exercises Adduction Standing Exercise Name Shoulder Adduction Side bilateral Resistance Blue Extension Standing Exercise Name Shoulder Extension Side bilateral Resistance Blue Flexion Standing Exercise Name Shoulder Flexion Side bilateral Equipment Used 3# Abduction Standing Exercise Name Shoulder Abduction Side bilateral Equipment Used 3# Manual Therapy Treatment Soft Tissue Mobilization Cervical Spine Body Location Paraspinals, Suboccipitals Mobilization Type Sustained Pressure,Trigger Point Release Body Position Sitting Manual Traction Cervical Details Cervical traction Body Position Supine PT-OP-T Assessment and Plan Start: 10/26/23 12:24 Freq: Status: Active Protocol: Document 12/20/23 09:45 DCW (Rec: 12/20/23 10:31 DCW [id number]) Physical Therapy Assessment Impairments Impairments Balance,Functional Activities, Functional Mobility,Pain, Posture,ROM,Strength,Tone, Vestibular Goals Three Impairment Limited cervical mobility secondary to increased muscle tone Mcc Goal (LTG) Pt to demonstrate increased cervical rotation to 35 degrees bilaterally in order to improve ability to turn head while driving LTG Duration 01/28/24 Two Impairment Dizziness with positional changes Impairment Pain with picking objects off the ground and with reaching out with arm to the side and with lowering the arm after reaching overhead. Mcc Goal (LTG) Pt to report no instances of dizziness when performing bed mobility for one full month. LTG Duration 12/27/23 Assessment Summary Assessment Weakness with overhead lifting , but tone management much better recently, slight improvement in cervical mobility and pain levels Physical Therapy Plan Frequency and Duration Frequency of Treatment 2x/Week Plan of Care Start Date 11/29/23 Plan of Care End Date 01/28/24 Therapeutic Interventions Therapeutic Interventions Canalithic Repositioning,Home Exercise Program,Manual Therapy,Neuromuscular Re- education,Patient/Caregiver Education,Self-Care/Home Management,Therapeutic Exercises,Vestibular Rehabilitation Next Visit Focus/Plan Next Note Type Treatment Note Next Visit Plan Positional testing, CRM as indicated, Shoulder/cervical STM
--- NOTE | 2024-03-22 17:40 | PT.OPDS ---
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) Dizziness and giddiness (12/20/23) Visit Care Team Role Provider Type Tripp Spears MD Attending Provider Physician Family Provider Primary Care Provider Referring Provider Specialty: Internal Medicine Address: [address] [place] [address], [address], [facility] Email: [email or web address] Visit Number Visit Number 8 Discharge Summary PT-OP-B Current Condition Start: 10/26/23 12:24 Freq: Status: Active Protocol: Document 10/26/23 12:00 DCW (Rec: 10/26/23 12:39 DCW [id number]) Current Condition History of Current Condition Onset Date One month history Current Complaints Positional vertigo History of Current Condition Pt is a 73 year old male complaining of a one month history of motion-induced vertigo. Pt reports episodes last a few seconds. Symptoms are provoked by Looking up or down, or getting into/out of bed. Pt denies recent hearing changes, tinnitus, diplopia, dysarthria, discoordination, or decreased mentation/ consciousness. Pt reports symptoms are waxing/waning in nature. 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 PT-OP-C Subjective Start: 10/26/23 12:24 Freq: Status: Active Protocol: Document 12/20/23 09:45 DCW (Rec: 12/20/23 10:31 DCW [id number]) OP-PT Subjective Patient Comments Patient Comments Pt notes his allergies are driving me nuts today. PT-OP-F Manual Assessment Start: 11/29/23 10:29 Freq: Status: Active Protocol: Document 11/29/23 10:30 DCW (Rec: 11/29/23 11:13 DCW [id number]) Manual Assessments Soft Tissue Assessment Soft Tissue Mobility Assessment Tenderness to palpation 3/4: Pain with wincing along B suboccipitals, L upper trap PT-OP-K Range of Motion Start: 11/29/23 10:29 Freq: Status: Active Protocol: Document 11/29/23 10:30 DCW (Rec: 11/29/23 11:13 DCW [id number]) Cervical Spine Range of Motion Cervical Spine Active Degrees Testing Position Sitting Flexion 45 Extension 25 Rotation Left 50 Rotation Right 42 Lateral Flexion Left 20 Lateral Flexion Right 15 Comments Prior cervical fusion Shoulder Goniometric Range of Motion Shoulder Left Active Testing Position Sitting Flexion 170 Abduction 180 External Rotation at 0 degrees Abduction 60 Internal Rotation Behind Back (text) T6 PT-OP-L Special Tests Start: 11/29/23 10:29 Freq: Status: Active Protocol: Document 11/29/23 10:30 DCW (Rec: 11/29/23 11:13 DCW [id number]) Special Tests Cervical Spine Special Tests Foraminal Compression Test Results Negative Passive Neck Flexion Test Results Pain/Stiffness in suboccipitals Spurling's Test Test Results Negative Shoulder Special Tests Lift-Off Rotator Cuff Test Results Negative bilaterally Drop Arm Rotator Cuff Test Results Positive left Belly Press Test Results Negative bilaterally PT-OP-M Strength Start: 11/29/23 10:29 Freq: Status: Active Protocol: Document 11/29/23 10:30 DCW (Rec: 11/29/23 11:13 DCW [id number]) Shoulder Strength Shoulder Manual Muscle Testing Right Flexion 4 Good Abduction (C5) 4 Good External Rotation 4- Good- Internal Rotation 4+ Good+ Left Flexion 4- Good- Abduction (C5) 4 Good External Rotation 4- Good- Internal Rotation 4+ Good+ PT-OP-O Vestibular Start: 10/26/23 12:24 Freq: Status: Active Protocol: Document 11/08/23 16:49 DCW (Rec: 11/08/23 17:22 DCW [id number]) Vestibular Assessment Positional Testing [place]pike Negative Left,Negative Right PT-OP-T Assessment and Plan Start: 10/26/23 12:24 Freq: Status: Active Protocol: Document 03/22/24 17:38 DCW (Rec: 03/22/24 17:40 DCW [id number]) Physical Therapy Assessment Assessment Summary Assessment Pt has not been seen in three months, plan to discharge from skilled therapy at this time. Physical Therapy Plan Discharge Physical Therapy Discharge Reasons No Longer Attending PT
== END 2024-03-28 13:41 ==
LOC: PHYS 09:45
PROVIDERS: Family Provider Internal Medicine; PCP Internal Medicine; Referring Provider Internal Medicine; Visit Provider Internal Medicine
DX: Q16.5 Congenital malformation of inner ear (principal); H81.90 Unspecified disorder of vestibular function, unspecified ear; M54.2 Cervicalgia; M25.519 Pain in unspecified shoulder
CPT/HCPCS: 95992; 97110; 97116; 97140; 97161

== ENCOUNTER → 2024-02-24 09:08 | Outpatient (CLI) | payer MEDICARE, BC, SELFPAY ==
[2023-05-16 10:11] VITALS: BMI 26.4
[2024-02-24 10:30] LABS: Hemoglobin A1C% w Est Avg Glu 10.5 % (4.0-6.0)
[2024-02-24 10:48] LABS: Alanine Aminotransferase 33 IU/L (<50); Albumin 4.3 g/dL (3.5-5.0); Albumin Globulin Ratio 1.9 (1.0-2.8); Alkaline Phosphatase 135 U/L (38-126); Aspartate Aminotransferase 33 IU/L (17-59); BUN Creatinine Ratio 16.3 (6-22); Bilirubin Total 0.9 mg/dL (0.2-1.3); Blood Urea Nitrogen 13 mg/dL (9-20); Calcium 9.5 mg/dL (8.4-10.2); Carbon Dioxide 19 mmol/L (22-32); Chloride 106 mmol/L (98-107); Estimated Glomerular Filt Rate > 60 mL/min (>60); Globulin 2.3 g/dL (1.7-4.1); Glucose 244 mg/dL (80-110); HEMOLYSIS < 15 (0-50); Potassium 4.5 mmol/L (3.4-5.1); Sodium 133 mmol/L (137-145); Total Protein 6.6 g/dL (6.3-8.2)
== END ==
PROVIDERS: Family Provider Internal Medicine; PCP Internal Medicine; Referring Provider Internal Medicine; Visit Provider Internal Medicine
DX: E11.65 Type 2 diabetes mellitus with hyperglycemia (principal); I10 Essential (primary) hypertension
CPT/HCPCS: 36415; 80053; 83036

== ENCOUNTER 2024-02-24 16:59 | Inpatient (IN) | payer MEDICARE, BC, SELFPAY ==
[2023-05-16 10:11] VITALS: BMI 26.4
[2024-02-24] VITALS (19 sets, daily range): BP systolic 93–126; BP diastolic 59–89; PULSE 65–156; RESP 18–40; TEMP 36.1–36.6; O2SAT 93–96; BMI 27.1; BMI 27.2
--- NOTE | 2024-02-24 17:27 | PC.NURSE ---
Pt came to the ed today because he has been experiencing cp, pressure and palpitations since about 0700 this morning. Pt reports that his cp started this morning and that he decided to go work in his garden and mow the lawn. Pt continued to feel poorly throughout the day. This afternoon, pt was driving his car and began to feel dizzy, lightheaded and like he was going to faint. Pt has hx of afib, diabetes and does not currently take blood thinners. A&Ox4. Pt HR 155. EKG done and Dr Nobles notified of pt status and came to bedside.
--- NOTE | 2024-02-24 17:28 | ED.CHESTPAIN ---
HPI - Chest Pain <Aguilar Nboles DO - Last Filed: 02/25/24 07:14> General Chief Complaint: Chest Pain Stated Complaint: chest problems/balance issues Time Seen by Provider: 02/24/24 17:21 Source: patient Mode of arrival: Ambulatory Limitations: no limitations History of Present Illness HPI narrative: Patient is a 73-year-old male. History of diabetes, hypertension and paroxysmal atrial fibrillation. Only on glipizide. Has had cardioversions in the past. Is not on a beta-austin or calcium channel austin. Is not on anticoagulation. States he woke up this morning having a heaviness in his chest. It lasted several hours but then resolved and has not had any symptoms since then. He was able to go about his normal daily activities. He stated that within the past couple hours he was driving and had a sudden onset of an uneasy feeling in his chest. It was different than what he felt this morning he states that he is feeling like his heart is beating fast and thinks that it started when he was driving and had the uneasy feeling in his chest. He denies lightheadedness. No lower extremity swelling. Has been taking all of his medications as directed. Related Data Previous Rx's Medication Instructions Recorded blood sugar diagnostic (Blood #100 ea 04/03/21 Glucose Test strips) blood-glucose meter #1 ea 04/03/21 lancets #100 ea 04/03/21 glipizide 5 mg tablet 5 mg PO BID #180 tabs 02/22/23 Disabled Parking #1 ea 03/17/23 Allergies Allergy/AdvReac Type Severity Reaction Status Date / Time metformin AdvReac Severe I had all Verified 11/07/23 15:32 the side effects lorazepam AdvReac Intermediate Headache Verified 11/07/23 15:47 Review of Systems <Aguilar Nobles DO - Last Filed: 02/25/24 07:14> Review of Systems ROS Unobtainable: All systems reviewed & are unremarkable except as noted in HPI and below Patient History <Aguilar Nobles DO - Last Filed: 02/25/24 07:14> Medical History History of COVID-19 (~2020) PTSD (post-traumatic stress disorder) COPD (chronic obstructive pulmonary disease) History of cardioversion Paroxysmal atrial fibrillation Unspecified asthma (06/08/11) Esophageal dysmotility Hyperlipidemia Hypothyroidism Type 2 diabetes mellitus without complication (11/16/17) Essential hypertension (11/16/17) 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/17) Atrial fibrillation (03/12/14) Chronic cholecystitis Surgical History H/O vasectomy History of arthroscopy of right shoulder History of carpal tunnel repair History of knee replacement Hx of arthroscopy of left knee Hx of arthroscopy of right knee Hx of bilateral cataract extraction Hx of eye surgery Hx of fusion of cervical spine (2018) Hx of shoulder surgery Status post cholecystectomy Status post hernia repair Family History Mother Hypertension Gallstones Father Hypertension Cancer Grandmother Hypertension Heart disease Cancer Social History marital status: number of children: 1 household members: none lives independently: Yes caregiver/support person: No housing: house pets and animals: No education level: college occupational status: other current occupational exposures/hazards: No 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 Straight[employer] steve/congregation: None leisure activities: fishing and other Smoking Status: Never smoker Tobacco: How many years used: 0 quit status: quit date established second hand exposure: Yes alcohol intake: current substance use type: does not use eating out: 1-3 times/week Type(s) of exercise: other and normal ROM and activity Smoking Status: Never smoker alcohol intake frequency: holidays/special occasions only Substance Use Type: does not use Exam <Aguilar Nobles DO - Last Filed: 02/25/24 07:14> Initial Vital Signs Initial Vital Signs: Vital Signs Temperature 98 F 02/24/24 17:19 Pulse Rate 156 H 02/24/24 17:19 Respiratory Rate 20 02/24/24 17:19 Blood Pressure 124/72 02/24/24 17:19 Pulse Oximetry 95 02/24/24 17:19 Oxygen Delivery Method Room Air 02/24/24 17:19 Const General: cooperative, comfortable and No ill appearing HENMT Head: normal to inspection and normocephalic Resp Effort & Inspection: normal respiratory effort Auscultation: clear to auscultation bilaterally Cardio Rate: tachycardic Rhythm: abnormal rhythm GI Inspection: normal to inspection and non-distended Skin General: no rashes or lesions noted Neuro General: patient alert, patient awake, patient oriented x3 and moves all extremities Extrem General: normal to inspection, capillary refill normal and No edema <Kristen Javier, DO - Last Filed: 02/25/24 03:47> Initial Vital Signs Initial Vital Signs: Vital Signs Temperature 98 F 02/24/24 17:19 Pulse Rate 156 H 02/24/24 17:19 Respiratory Rate 20 02/24/24 17:19 Blood Pressure 124/72 02/24/24 17:19 Pulse Oximetry 95 02/24/24 17:19 Oxygen Delivery Method Room Air 02/24/24 17:19 Scores <Aguilar Nobles DO - Last Filed: 02/25/24 07:14> GCS [place] coma scale eye opening: Spontaneous [place] coma scale verbal response: Orientated [place] coma scale motor response: Obey commands [place] coma scale total score: 15 <Kristen Javier DO - Last Filed: 02/25/24 03:47> GCS [place] coma scale total score: 15 Course <Aguilar Nobles DO - Last Filed: 02/25/24 07:14> Orders Ordered: Acetaminophen (Acetaminophen 325 Mg Tablet) 650 mg PO Q6H PRN PRN Reason: Fever/Mild Pain (1-3) Hydrocodone Bitart/Acetaminophen (Hydrocodone/Acet 5/325 Tablet) 1 tab PO Q4H PRN PRN Reason: Pain, Moderate (4-6) Al Hydrox/Mg Hydrox/Simethicone (Mag Hydrox/Alum/Simeth 30 Ml Udc) 30 ml PO Q6HR PRN PRN Reason: Dyspepsia Apixaban (Apixaban 5 Mg Tablet) 5 mg PO BID FELICITAS Calcium Carbonate (Calcium Carbonate 500 Mg Tab) 1,000 mg PO Q4HR PRN PRN Reason: Dyspepsia Docusate Sodium (Docusate 100 Mg Capsule) 100 mg PO BID FELICITAS Insulin Human Regular (Insulin Regular 100 Unit/Ml 3 Ml Vial) 0 unit SUBCUT ACHS [facility]; Protocol Metoprolol Tartrate (Metoprolol Tartrate 5 Mg/5 Ml Inj) 5 mg IV Q2HR PRN PRN Reason: Heart Rate- High Naloxone HCl (Naloxone 0.4 Mg/Ml Vial) 0.2 mg IV Q2MIN PRN PRN Reason: Opiate Reversal Ondansetron HCl (Ondansetron 4 Mg/2 Ml Inj) 4 mg IV Q8HR PRN PRN Reason: Nausea And Vomiting Pantoprazole Sodium (Pantoprazole Dr 20 Mg Tablet) 20 mg PO 0600 FELICITAS Last Admin: 02/25/24 06:07 Dose: 20 mg Documented By: SR Discontinued Medications Apixaban (Apixaban 5 Mg Tablet) 5 mg PO NOW ONE Stop: 02/24/24 19:37 Last Admin: 02/24/24 19:59 Dose: 5 mg Documented By: SKYLAR Diltiazem HCl (Diltiazem 5 Mg/Ml Sdv) 20 mg IV NOW ONE Stop: 02/24/24 17:30 Last Admin: 02/24/24 17:38 Dose: 20 mg Documented By: MAXIMO Metoprolol Succinate (Metoprolol Er 25 Mg Tablet) 12.5 mg PO NOW ONE Stop: 02/24/24 20:11 Last Admin: 02/24/24 20:15 Dose: Not Given Documented By: SKYLAR Metoprolol Tartrate (Metoprolol Ir 25 Mg Tablet) 12.5 mg PO NOW ONE Stop: 02/24/24 20:14 Last Admin: 02/24/24 20:30 Dose: 12.5 mg Documented By: SKYLAR Metoprolol Tartrate (Metoprolol Tartrate 5 Mg/5 Ml Inj) 5 mg IV NOW ONE Stop: 02/24/24 21:06 Last Admin: 02/24/24 21:17 Dose: 5 mg Documented By: SKYLAR Vital Signs Vital signs: Vital Signs - 8 hr 02/24/24 20:00 Pulse Rate 119 H Respiratory Rate 26 H <Kristen Javier DO - Last Filed: 02/25/24 03:47> Orders Ordered: Acetaminophen (Acetaminophen 325 Mg Tablet) 650 mg PO Q6H PRN PRN Reason: Fever/Mild Pain (1-3) Hydrocodone Bitart/Acetaminophen (Hydrocodone/Acet 5/325 Tablet) 1 tab PO Q4H PRN PRN Reason: Pain, Moderate (4-6) Al Hydrox/Mg Hydrox/Simethicone (Mag Hydrox/Alum/Simeth 30 Ml Udc) 30 ml PO Q6HR PRN PRN Reason: Dyspepsia Apixaban (Apixaban 5 Mg Tablet) 5 mg PO BID [facility] Calcium Carbonate (Calcium Carbonate 500 Mg Tab) 1,000 mg PO Q4HR PRN PRN Reason: Dyspepsia Docusate Sodium (Docusate 100 Mg Capsule) 100 mg PO BID [facility] Insulin Human Regular (Insulin Regular 100 Unit/Ml 3 Ml Vial) 0 unit SUBCUT ACHS [facility]; Protocol Metoprolol Tartrate (Metoprolol Tartrate 5 Mg/5 Ml Inj) 5 mg IV Q2HR PRN PRN Reason: Heart Rate- High Naloxone HCl (Naloxone 0.4 Mg/Ml Vial) 0.2 mg IV Q2MIN PRN PRN Reason: Opiate Reversal Ondansetron HCl (Ondansetron 4 Mg/2 Ml Inj) 4 mg IV Q8HR PRN PRN Reason: Nausea And Vomiting Pantoprazole Sodium (Pantoprazole Dr 20 Mg Tablet) 20 mg PO 0600 [facility] Last Admin: 02/25/24 06:07 Dose: 20 mg Documented By: Discontinued Medications Apixaban (Apixaban 5 Mg Tablet) 5 mg PO NOW ONE Stop: 02/24/24 19:37 Last Admin: 02/24/24 19:59 Dose: 5 mg Documented By: SKYLAR Diltiazem HCl (Diltiazem 5 Mg/Ml Sdv) 20 mg IV NOW ONE Stop: 02/24/24 17:30 Last Admin: 02/24/24 17:38 Dose: 20 mg Documented By: MAXIMO Metoprolol Succinate (Metoprolol Er 25 Mg Tablet) 12.5 mg PO NOW ONE Stop: 02/24/24 20:11 Last Admin: 02/24/24 20:15 Dose: Not Given Documented By: SKYLAR Metoprolol Tartrate (Metoprolol Ir 25 Mg Tablet) 12.5 mg PO NOW ONE Stop: 02/24/24 20:14 Last Admin: 02/24/24 20:30 Dose: 12.5 mg Documented By: SKYLAR Metoprolol Tartrate (Metoprolol Tartrate 5 Mg/5 Ml Inj) 5 mg IV NOW ONE Stop: 02/24/24 21:06 Last Admin: 02/24/24 21:17 Dose: 5 mg Documented By: SKYLAR Vital Signs Vital signs: Vital Signs - 8 hr 02/24/24 20:00 Pulse Rate 119 H Respiratory Rate 26 H MDM - Chest Pain <Aguilar Nobles DO - Last Filed: 02/25/24 07:14> Lab Data 02/25/24 04:35 02/25/24 04:35 Labs: Lab Results 02/24/24 02/24/24 02/24/24 Range/Units 16:26 17:26 20:03 WBC 7.8 (4.5-11.0) X10^3/uL RBC 4.64 (4.5-5.9) X10^6/uL Hgb 16.2 (13.5-17.5) g/dL Hct 46.5 (41-53) % MCV 100.2 H (80-100) fL MCH 35.0 H (26-34) PG MCHC 34.9 (30-36) % RDW 13.7 (11.6-14.8) % Plt Count 209 (150-400) X10^3/uL Neut % (Auto) 64.8 (50-75) % Lymph % (Auto) 20.7 L (25-40) % [place] % (Auto) 11.6 (3-14) % Eos % (Auto) 2.1 (2-4) % Baso % (Auto) 0.8 (0-2) % Neut # (Auto) 5000 (7842-3224) /uL Lymph # (Auto) 1600 (0033-1221) /uL [place] # (Auto) 900 (0-900) /uL Eos # (Auto) 200 (0-450) /uL Baso # (Auto) 100 (0-100) /uL Sodium 136 L (137-145) mmol/L Potassium 4.4 (3.4-5.1) mmol/L Chloride 106 (98-107) mmol/L Carbon Dioxide 22 (22-32) mmol/L BUN 20 (9-20) mg/dL Creatinine 0.89 (0.66-1.25) mg/dL Estimated GFR > 60 (>60) mL/min BUN/Creatinine Ratio 22.5 H (6-22) Glucose 253 H (80-110) mg/dL Calcium 9.4 (8.4-10.2) mg/dL Magnesium 1.9 2.0 (1.6-2.3) mg/dL Total Bilirubin 0.7 (0.2-1.3) mg/dL AST 36 (17-59) IU/L ALT 33 (<50) IU/L Alkaline Phosphatase 133 H (38-126) U/L Total Creatine Kinase 95 (55-170) U/L Troponin I 0.024 0.052 H (0.01-0.034) ng/mL NT-Pro-B Natriuret Pep 725 H (<450) pg/mL Total Protein 6.7 (6.3-8.2) g/dL Albumin 4.0 (3.5-5.0) g/dL Globulin 2.7 (1.7-4.1) g/dL Albumin/Globulin Ratio 1.5 (1.0-2.8) Lipase 100 (23-300) U/L TSH 8.92 H (0.47-4.68) uIU/mL Free T4 0.93 (0.78-2.19) ng/dL ECG Data Attestation: I personally reviewed and interpreted this ECG as follows: Interpretation: Atrial fibrillation Ventricular rate of 145 Normal axis Normal QRS Nonspecific ST T wave changes MDM Narrative Medical decision making narrative: Patient did have chest discomfort for a couple hours this morning but this is now completely resolved. He has a history of paroxysmal AFib. He arrives in AFib with RVR. It appears to started with in the past couple hours. He has not anticoagulated. He states it in the past he has had cardioversions but his also spontaneously converted on himself with medications. Patient is not currently in heart failure. Will obtain labs. Will try a dose of Cardizem. Cardizem is unsuccessful patient would be a candidate for cardioversion. Care turned over to evening provider to follow-up and disposition. <Kristen Javier, - Last Filed: 02/25/24 03:47> Lab Data Labs: Lab Results 02/24/24 02/24/24 02/24/24 Range/Units 16:26 17:26 20:03 WBC 7.8 (4.5-11.0) X10^3/uL RBC 4.64 (4.5-5.9) X10^6/uL Hgb 16.2 (13.5-17.5) g/dL Hct 46.5 (41-53) % MCV 100.2 H (80-100) fL MCH 35.0 H (26-34) PG MCHC 34.9 (30-36) % RDW 13.7 (11.6-14.8) % Plt Count 209 (150-400) X10^3/uL Neut % (Auto) 64.8 (50-75) % Lymph % (Auto) 20.7 L (25-40) % [place] % (Auto) 11.6 (3-14) % Eos % (Auto) 2.1 (2-4) % Baso % (Auto) 0.8 (0-2) % Neut # (Auto) 5000 (6376-1019) /uL Lymph # (Auto) 1600 (3242-1582) /uL [place] # (Auto) 900 (0-900) /uL Eos # (Auto) 200 (0-450) /uL Baso # (Auto) 100 (0-100) /uL Sodium 136 L (137-145) mmol/L Potassium 4.4 (3.4-5.1) mmol/L Chloride 106 (98-107) mmol/L Carbon Dioxide 22 (22-32) mmol/L BUN 20 (9-20) mg/dL Creatinine 0.89 (0.66-1.25) mg/dL Estimated GFR > 60 (>60) mL/min BUN/Creatinine Ratio 22.5 H (6-22) Glucose 253 H (80-110) mg/dL Calcium 9.4 (8.4-10.2) mg/dL Magnesium 1.9 2.0 (1.6-2.3) mg/dL Total Bilirubin 0.7 (0.2-1.3) mg/dL AST 36 (17-59) IU/L ALT 33 (<50) IU/L Alkaline Phosphatase 133 H (38-126) U/L Total Creatine Kinase 95 (55-170) U/L Troponin I 0.024 0.052 H (0.01-0.034) ng/mL NT-Pro-B Natriuret Pep 725 H (<450) pg/mL Total Protein 6.7 (6.3-8.2) g/dL Albumin 4.0 (3.5-5.0) g/dL Globulin 2.7 (1.7-4.1) g/dL Albumin/Globulin Ratio 1.5 (1.0-2.8) Lipase 100 (23-300) U/L TSH 8.92 H (0.47-4.68) uIU/mL Free T4 0.93 (0.78-2.19) ng/dL Imaging Data Chest x-ray: Radiologist's Impression: PROCEDURE: XR CHEST 1V INDICATIONS: chest pain TECHNIQUE: One view of the chest was acquired. COMPARISON: [facility], CR, XR CHEST 1V, 05/21/2023, 13:54. [facility], CR, XR CHEST 1V, 09/19/2021, 12:14. FINDINGS: Surgical changes and devices: Partially visualized ACDF. Lungs and pleura: Lungs are clear. No pleural effusions or pneumothorax. Mediastinum: Mediastinal contours appear normal. Heart size is normal. Bones and chest wall: No suspicious bony lesions. Overlying soft tissues appear unremarkable. IMPRESSION: No acute cardiopulmonary abnormality is seen. Dictated by: Juan Manuel Hong M.D. on 02/24/2024 at 19:54 Approved by: Juan Manuel Hong M.D. on 02/24/2024 at 19:54 MDM Narrative Medical decision making narrative: Patient did have chest discomfort for a couple hours this morning but this is now completely resolved. He has a history of paroxysmal AFib. He arrives in AFib with RVR. It appears to started with in the past couple hours. He has not anticoagulated. He states it in the past he has had cardioversions but his also spontaneously converted on himself with medications. Patient is not currently in heart failure. Will obtain labs. Will try a dose of Cardizem. Cardizem is unsuccessful patient would be a candidate for cardioversion. Care turned over to evening provider to follow-up and disposition. Dr. Javier-patient signed out to me by Dr. Nobles I have seen evaluated patient myself. Patient has been having some chest heaviness since last week off and on he does not really complain of palpitations or fluttering in his chest. This morning he noticed significant heavy chest this morning. He is under alert stress his recently he now lives alone. He was noted to be in AFib with RVR he received 10 mg of diltiazem his rate is been pretty well-controlled of the heart rate less than 100. Blood pressure has been soft with a systolic 11/02/1997. He reports that he still maybe feels something in his chest. Not convinced that patient is a candidate for cardioversion with symptoms that started last week and he has not on any sort of anticoagulation. He is previously seen cardiology a [facility] but reports he did not like them and has not been back to see them. Last echo was in 2020 he would EF of 55-60%. He states that his feet feel a little bit swollen. Blood work has been reviewed: WBC 7.8 hemoglobin 16.2 hematocrit 46.5 MCV 100.2 platelets 209, sodium 136 potassium 4.4 chloride 106 carbon dioxide 22 BUN 20 creatinine 0.8 no glucose 253, hemoglobin A1c is 10.5, trop 0.024, lipase 100 Patient did have a 6 beat run of V-tach at 5:[address] Serrano, cardiology updated on patient's symptoms including nonsustained run of V-tach. Recommends echo monitoring overnight Eliquis agrees with no cardioversion. Patient is given 12.5 mg of metoprolol as well to keep heart rate down at a lower dose due to soft blood pressure. Heart rate started increasing again without knowing EF he was given IV Lopressor which decreased his heart rate. Dr. Herring updated on patient's symptoms and test results and accepts patient Discharge Plan Departure Patient Disposition: Admitted as Observation Clinical Impression: Atrial fibrillation with rapid ventricular response Admit Date/Time: 02/24/24 20:13 Admit Provider: Marianela Herring
[2024-02-24 17:35] LABS: Add Manual Diff / Slide Review NO; Basophils Absolute Auto 100 /uL (0-100); Basophils Percent Auto 0.8 % (0-2); Eosinophils Absolute Auto 200 /uL (0-450); Eosinophils Percent Auto 2.1 % (2-4); Hematocrit 46.5 % (41-53); Hemoglobin 16.2 g/dL (13.5-17.5); Lymphocytes Absolute Auto 1600 /uL (1100-4500); Lymphocytes Percent Auto 20.7 % (25-40); Mean Corpuscular HGB Conc 34.9 % (30-36); Mean Corpuscular Volume 100.2 fL (80-100); Monocytes Absolute Auto 900 /uL (0-900); Monocytes Percent Auto 11.6 % (3-14); Neutrophils Absolute Auto 5000 /uL (1500-7000); Neutrophils Percent Auto 64.8 % (50-75); Platelet Count 209 X10^3/uL (150-400); Red Blood Cell Count 4.64 X10^6/uL (4.5-5.9); Red Cell Distribution Width 13.7 % (11.6-14.8); White Blood Cell Count 7.8 X10^3/uL (4.5-11.0)
[2024-02-24] MEDS: dilTIAZem 5 MG/ML SDV 20 MG IV (17:38)
[2024-02-24 17:42] LABS: Alanine Aminotransferase 33 IU/L (<50); Albumin Globulin Ratio 1.5 (1.0-2.8); Alkaline Phosphatase 133 U/L (38-126); Aspartate Aminotransferase 36 IU/L (17-59); BUN Creatinine Ratio 22.5 (6-22); Bilirubin Total 0.7 mg/dL (0.2-1.3); Blood Urea Nitrogen 20 mg/dL (9-20); Calcium 9.4 mg/dL (8.4-10.2); Carbon Dioxide 22 mmol/L (22-32); Chloride 106 mmol/L (98-107); Estimated Glomerular Filt Rate > 60 mL/min (>60); Globulin 2.7 g/dL (1.7-4.1); Glucose 253 mg/dL (80-110); HEMOLYSIS 18 (0-50); Lipase 100 U/L (23-300); Magnesium 1.9 mg/dL (1.6-2.3); Potassium 4.4 mmol/L (3.4-5.1); Sodium 136 mmol/L (137-145); Total Protein 6.7 g/dL (6.3-8.2)
[2024-02-24 17:42] LABS: Creatine Kinase 95 U/L (55-170)
[2024-02-24 17:53] LABS: Troponin I 0.024 ng/mL (0.01-0.034)
--- NOTE | 2024-02-24 17:58 | PC.NURSE ---
4 second run of v-tach. Pt a&ox4. Pt stated that he felt funny. Dr Nobles notified.
--- NOTE | 2024-02-24 19:41 | DI.RAD.S_ITS ---
PROCEDURE: XR CHEST 1V INDICATIONS: chest pain TECHNIQUE: One view of the chest was acquired. COMPARISON: [facility], CR, XR CHEST 1V, 05/21/2023, 13:54. Located [facility], CR, XR CHEST 1V, 09/19/2021, 12:14. FINDINGS: Surgical changes and devices: Partially visualized ACDF. Lungs and pleura: Lungs are clear. No pleural effusions or pneumothorax. Mediastinum: Mediastinal contours appear normal. Heart size is normal. Bones and chest wall: No suspicious bony lesions. Overlying soft tissues appear unremarkable. IMPRESSION: No acute cardiopulmonary abnormality is seen. Dictated by: Juan Manuel Hong M.D. on 02/24/2024 at 19:54 Approved by: Juan Manuel Hong M.D. on 02/24/2024 at 19:54
[2024-02-24 19:47] LABS: NT-proBNP (BNP-Adult 18+) 725 pg/mL (<450)
[2024-02-24] MEDS: APIXABAN 5 MG TABLET PO (19:59)
[2024-02-24] MEDS: METOPROLOL IR 25 MG TABLET 12.5 MG PO (20:30)
[2024-02-24 20:34] LABS: Troponin I 0.052 ng/mL (0.01-0.034)
[2024-02-24] MEDS: METOPROLOL TARTRATE 5 MG/5 ML INJ IV (21:17)
--- NOTE | 2024-02-24 21:33 | DI.ECHO.S_ITS ---
[facility]+ [facility] : : [id number] : : [place] : : [id number] : : Phone: [phone] Echocardiogram Report + + :Name: AURY ANDREW Study Date: 02/25/2024 Height: 71 in : :[facility] ReadingLocation: Weight: 195 lb : : Gender: Male BSA: 2.1 m2 : :: 1950 Age: 73 yrs BP: 105/79 mmHg: :Reason For Study: ATRIAL FIBRILLATION : :Ordering Physician: ARRON, : :MU Performed By: Kumar Jorgensen : :Referring: MU HELLER : + + Interpretation Summary The patient was in atrial fibrillation with heart rates between 73-118 bpm during the exam. Left ventricular wall thickness is mildly increased. The ejection fraction is estimated to be 50-55%. The right ventricle is mildly dilated. Right ventricular systolic function is mildly reduced. The right atrium is mildly dilated. There is mild tricuspid regurgitation. Pulmonary artery pressures cannot be estimated because of the lack of a measurable TR jet velocity. Compared to the prior study dated 11/28/2019, both ventricles are less dynamic. Procedure: A two-dimensional transthoracic echocardiogram with color flow and Doppler was performed. The study quality was technically adequate. Comparison is made with the echocardiogram of 11/28/2019. The patient was in atrial fibrillation with heart rates between 73-118 bpm during the exam. Left Ventricle: The left ventricle is normal in size. Left ventricular wall thickness is mildly increased. The ejection fraction is estimated to be 50- 55%. Diastolic function could not be accurately assessed due to atrial fibrillation. Right Ventricle: The right ventricle is mildly dilated. Right ventricular systolic function is mildly reduced. Atria: The left atrial size is normal. The right atrium is mildly dilated. The interatrial septum grossly appears intact with no obvious evidence for an atrial septal defect. Mitral Valve: The mitral valve is normal in structure and function. There is no mitral valve stenosis. There is trace mitral regurgitation. Aortic Valve: The aortic valve is trileaflet. There is no aortic valve stenosis. No aortic regurgitation is present. Tricuspid Valve: The tricuspid valve is normal in structure and function. There is no tricuspid stenosis. There is mild tricuspid regurgitation. Pulmonary artery pressures cannot be estimated because of the lack of a measurable TR jet velocity. Pulmonic Valve: The pulmonic valve is not well seen, but is grossly normal. There is no pulmonic valvular stenosis. There is trace pulmonic regurgitation. Great Vessels: The aortic root is normal size. The dimensions of the ascending aorta are normal. The inferior vena cava was not visualized. Pericardium/ Pleura There is no pericardial effusion. There is no pleural effusion. MMode/2D Measurements & Calculations LVIDd: 4.7 cm LVOT diam: 2.3 cm LVIDs: 3.3 cm Ao root diam: 3.6 cm FS: 30.3 % asc Aorta Diam: 3.4 cm IVSd: 1.4 cm LVPWd: 1.2 cm LV flaherty. diameter/BSA (cm/m^2): 2.3 LV sys. diameter/BSA (cm/m^2): 1.6 LA A2 area: 13.6 cm2 RA long axis: 5.5 cm LA A4 area: 15.4 cm2 RA area: 22.6 cm2 LA length (vol): 5.1 cm RA vol: 78.5 ml LA vol: 35.4 ml RA : 37.6 ml/m2 LA vol index: 16.9 ml/m2 RVD1 (basal): 4.2 cm RVD2 (mid): 3.0 cm TAPSE: 1.4 cm Doppler Measurements & Calculations Ao V2 max: 82.2 cm/sec LVOT Max Sterling: 59.0 cm/sec Ao V2 mean: 60.8 cm/sec LV V1 max P.4 mmHg Ao max P.7 mmHg LV V1 VTI: 10.1 cm Ao mean P.7 mmHg JEAN(I,D): 2.9 cm2 Ao V2 VTI: 14.3 cm JEAN(V,D): 3.0 cm2 sev ratio: 0.70 JEAN indexed to BSA (cm^2/m^2): 1.4 MV E max sterling: 76.0 cm/sec TR max sterling: 196.2 cm/sec MV A max sterling: 22.9 cm/sec TR max P.4 mmHg MV E/A: 3.3 PA V2 max: 57.6 cm/sec MV dec time: 0.17 sec PA V2 mean: 41.0 cm/sec PA mean P.77 mmHg PA pr(Accel): 33.9 mmHg SVWICHO): 41.9 ml Reading Physician:03:39 PM
--- NOTE | 2024-02-24 21:42 | PC.NURSE ---
after pt started moving around HR noted to increased to the 140-150s, medication ordered and given and pt's HR decreased to the 80's, per Dr Javier pt may go the floor now, Bean SUAREZ called and updated on pt's condition
[2024-02-24 22:25] LABS: TSH w/ Reflex to FT4 8.92 uIU/mL (0.47-4.68)
[2024-02-24 23:08] LABS: Free T4, Direct Thyroxine 0.93 ng/dL (0.78-2.19)
[2024-02-25] VITALS (9 sets, daily range): BP systolic 89–112; BP diastolic 55–77; PULSE 65–125; RESP 16–17; TEMP 35.9–36.9; O2SAT 93–100
[2024-02-25 05:09] LABS: Add Manual Diff / Slide Review NO; Basophils Absolute Auto 0 /uL (0-100); Basophils Percent Auto 0.7 % (0-2); Eosinophils Absolute Auto 300 /uL (0-450); Eosinophils Percent Auto 4.3 % (2-4); Hematocrit 46.1 % (41-53); Lymphocytes Absolute Auto 1600 /uL (1100-4500); Lymphocytes Percent Auto 24.4 % (25-40); Mean Corpuscular HGB Conc 34.7 % (30-36); Mean Corpuscular Hemoglobin 34.9 PG (26-34); Mean Corpuscular Volume 100.5 fL (80-100); Monocytes Absolute Auto 800 /uL (0-900); Monocytes Percent Auto 12.5 % (3-14); Neutrophils Absolute Auto 3700 /uL (1500-7000); Neutrophils Percent Auto 58.1 % (50-75); Platelet Count 184 X10^3/uL (150-400); Red Blood Cell Count 4.59 X10^6/uL (4.5-5.9); Red Cell Distribution Width 13.8 % (11.6-14.8); White Blood Cell Count 6.4 X10^3/uL (4.5-11.0)
[2024-02-25 05:15] LABS: Alanine Aminotransferase 29 IU/L (<50); Albumin 3.6 g/dL (3.5-5.0); Albumin Globulin Ratio 1.4 (1.0-2.8); Alkaline Phosphatase 118 U/L (38-126); Aspartate Aminotransferase 28 IU/L (17-59); Bilirubin Total 0.6 mg/dL (0.2-1.3); Blood Urea Nitrogen 17 mg/dL (9-20); Calcium 8.7 mg/dL (8.4-10.2); Carbon Dioxide 22 mmol/L (22-32); Chloride 109 mmol/L (98-107); Creatine Kinase 61 U/L (55-170); Estimated Glomerular Filt Rate > 60 mL/min (>60); Globulin 2.5 g/dL (1.7-4.1); Glucose 247 mg/dL (80-110); HEMOLYSIS 17 (0-50); Sodium 137 mmol/L (137-145); Total Protein 6.1 g/dL (6.3-8.2)
[2024-02-25 05:24] LABS: NT-proBNP (BNP-Adult 18+) 1550 pg/mL (<450)
[2024-02-25 05:27] LABS: Troponin I 0.028 ng/mL (0.01-0.034)
[2024-02-25] MEDS: PANTOPRAZOLE DR 20 MG TABLET PO (06:07)
[2024-02-25] MEDS: APIXABAN 5 MG TABLET PO ×2 (08:11→21:33)
[2024-02-25] MEDS: DOCUSATE 100 MG CAPSULE PO ×2 (08:11→21:33)
[2024-02-25] MEDS: INSULIN REGULAR 100 UNIT/ML 3 ML VIAL SUBCUT ×4 (08:12→21:33)
[2024-02-25] MEDS: ACETAMINOPHEN 325 MG TABLET 650 MG PO (08:16)
[2024-02-25] MEDS: METOPROLOL TARTRATE 5 MG/5 ML INJ IV (08:44)
--- NOTE | 2024-02-25 14:07 | PM.HP.1 ---
History of Present Illness History of Present Illness Date Patient Seen: 02/25/24 Time Patient Seen: 14:08 Chief complaint: chest problems/balance issues Narrative: This is a very pleasant 73-year-old patient of Dr. Spears who presents to the ER with dizziness. Patient states that he has had a to the 3 week history of intermittent dizziness feeling weak and short of breath and having some balance issues maybe some chest tightness but no chest pain. Patient has been active working in his garden with no symptoms. Fairly difficult historian. He presented to the ER and He was found to be in atrial fibrillation with rapid ventricular rate. He was admitted for further treatment and workup. Patient with the past medical history of type 2 diabetes very poorly controlled with a recent hemoglobin A1c of over 10. Also patient with history of PE AFib has had previous cardioversions, COPD, hyperlipidemia, hypothyroidism, hypertension. However the only medications it appears he is on is glipizide. Patient states that previously over 20 years ago he had AFib and underwent cardioversion x3. Has not had any problems since then and has not been on blood thinners. Past medical history: Type 2 diabetes poorly controlled Patient has listed in his clinic chart that he is hyperlipidemia, hypertension, hypothyroidism, COPD but patient states he does not have any of these diagnoses in his not on medications for them. Medications glipizide 5 mg twice daily Allergies metformin unknown reaction. Lorazepam headache Past surgical history: Bilateral medial compartment joint replacements by Dr. Joyce Cholecystectomy C-spine fusion C3 [id number], 2015 Dr. Collins L4-L5 spine surgery Family history: Mom of old age at 95 Dad from Alzheimer's at 77 Maternal grandmother had multiple heart attacks and of a heart attack at 80 Paternal uncle and paternal great uncles at 77 from COPD Health related behavior: Patient does not use alcohol Patient does not smoke Patient is active, [employer] Social history: Patient lives alone in an [facility]. He has a daughter who has a stepdaughter who lives in [place]. He has a his 4 years ago from a rare hepatitis. 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 He served 3 tours in [employer]. Twelve point review of systems otherwise negative Negative for any syncope or presyncope He states his blood pressure at home is normal No change in weight No urine symptoms No GI symptoms No bright red blood per rectum, black tarry stools, GERD, diarrhea or constipation No rashes [facility] Medical History History of COVID-19 (~2020) PTSD (post-traumatic stress disorder) COPD (chronic obstructive pulmonary disease) History of cardioversion Paroxysmal atrial fibrillation Unspecified asthma (06/08/11) Esophageal dysmotility Hyperlipidemia Hypothyroidism Type 2 diabetes mellitus without complication (11/16/17) Essential hypertension (11/16/17) 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/17) Atrial fibrillation (03/12/14) Chronic cholecystitis Surgical History H/O vasectomy History of arthroscopy of right shoulder Hx of shoulder surgery Hx of eye surgery Hx of bilateral cataract extraction Hx of arthroscopy of left knee Hx of arthroscopy of right knee Hx of fusion of cervical spine (2017) History of carpal tunnel repair Status post hernia repair Status post cholecystectomy History of knee replacement Family History Mother Hypertension Gallstones Father Hypertension Cancer Grandmother Hypertension Heart disease Cancer Social History marital status: number of children: 1 household members: none lives independently: Yes caregiver/support person: No housing: house pets and animals: No education level: college occupational status: other current occupational exposures/hazards: No 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: None leisure activities: fishing and other Smoking Status: Never smoker Tobacco: How many years used: 0 quit status: quit date established second hand exposure: Yes alcohol intake: current substance use type: does not use eating out: 1-3 times/week Type(s) of exercise: other and normal ROM and activity Meds Home Medications and Allergies Home Medications Medication Instructions Recorded Confirmed Type blood sugar diagnostic (Blood #100 ea 04/03/21 02/24/24 Rx Glucose Test strips) blood-glucose meter #1 ea 04/03/21 02/24/24 Rx lancets #100 ea 04/03/21 02/24/24 Rx glipizide 5 mg tablet 5 mg PO BID #180 tabs 02/22/23 02/24/24 Rx Disabled Parking #1 ea 03/17/23 02/24/24 Rx Allergies Allergy/AdvReac Type Severity Reaction Status Date / Time metformin AdvReac Severe I had all Verified 11/07/23 15:32 the side effects lorazepam AdvReac Intermediate Headache Verified 11/07/23 15:47 Exam Vital Signs (past 8 hours): - 02/25/24 08:00 02/25/24 08:29 02/25/24 12:00 Temperature 97.7 F 97 F L Pulse Rate 66 71 Respiratory Rate 16 16 Blood Pressure 89/63 L 105/75 90/66 Pulse Oximetry 100 97 Oxygen Flow Rate 0 0 Oxygen Delivery Method Room Air Oxygen Flow Rate 0 Narrative Exam Narrative: Afebrile, vital signs are stable HEENT is unremarkable Neck is supple without adenopathy or thyromegaly, no bruit Lungs are clear to auscultation without wheezes rhonchi or crackles Cor: Irregularly irregular rhythm with current well-controlled rate Abdomen: Positive bowel sounds, soft Extremities: No edema, pulses intact, Moves all extremities well Neurologic exam nonfocal Skin no changes Objective Labs 02/25/24 04:35 02/25/24 04:35 Labs: Laboratory Results - last 24 hr 02/24/24 02/24/24 02/24/24 16:26 17:26 20:03 WBC 7.8 RBC 4.64 Hgb 16.2 Hct 46.5 MCV 100.2 H MCH 35.0 H MCHC 34.9 RDW 13.7 Plt Count 209 Neut % (Auto) 64.8 Lymph % (Auto) 20.7 L [place] % (Auto) 11.6 Eos % (Auto) 2.1 Baso % (Auto) 0.8 Neut # (Auto) 5000 Lymph # (Auto) 1600 [place] # (Auto) 900 Eos # (Auto) 200 Baso # (Auto) 100 Sodium 136 L Potassium 4.4 Chloride 106 Carbon Dioxide 22 BUN 20 Creatinine 0.89 Estimated GFR > 60 BUN/Creatinine Ratio 22.5 H Glucose 253 H Calcium 9.4 Magnesium 1.9 2.0 Total Bilirubin 0.7 AST 36 ALT 33 Alkaline Phosphatase 133 H Total Creatine Kinase 95 Troponin I 0.024 0.052 H NT-Pro-B Natriuret Pep 725 H Total Protein 6.7 Albumin 4.0 Globulin 2.7 Albumin/Globulin Ratio 1.5 Lipase 100 TSH 8.92 H Free T4 0.93 02/25/24 04:35 WBC 6.4 RBC 4.59 Hgb 16.0 Hct 46.1 MCV 100.5 H MCH 34.9 H MCHC 34.7 RDW 13.8 Plt Count 184 Neut % (Auto) 58.1 Lymph % (Auto) 24.4 L [place] % (Auto) 12.5 Eos % (Auto) 4.3 H Baso % (Auto) 0.7 Neut # (Auto) 3700 Lymph # (Auto) 1600 [place] # (Auto) 800 Eos # (Auto) 300 Baso # (Auto) 0 Sodium 137 Potassium 4.0 Chloride 109 H Carbon Dioxide 22 BUN 17 Creatinine 0.74 Estimated GFR > 60 BUN/Creatinine Ratio 23.0 H Glucose 247 H Calcium 8.7 Magnesium Total Bilirubin 0.6 AST 28 ALT 29 Alkaline Phosphatase 118 Total Creatine Kinase 61 Troponin I 0.028 NT-Pro-B Natriuret Pep 1550 H Total Protein 6.1 L Albumin 3.6 Globulin 2.5 Albumin/Globulin Ratio 1.4 Lipase TSH Free T4 Assessment & Plan Assessment & Plan narrative: 73-year-old male with previous history of PE AFib but has not had any symptoms now with new onset AFib with RVR Assessment 1. AFib with RVR patient was admitted to the hospital and placed on telemetry. He received IV metoprolol as needed with good response. His blood pressures are fairly soft in the systolic of upper 80s to low 100s. His heart rate was in the 140s when he initially came in he received 20 mg of IV diltiazem and had a good response and then was switched to metoprolol. Echo is pending. CK and troponins have been negative and stable. Chest x-ray did not show significant pulmonary we will await the echo. BNP was elevated today but suspect this is related to the AFib with RVR but we will go. On oral metoprolol 25 mg today. He was started on Eliquis 5 mg twice daily. Magnesium normal. TSH elevated. Patient requires continued hospitalization due to RVR and hypotension. Assessment 2. Type 2 diabetes very poorly controlled Plan: Will do CBGS q.a.c. and q.h.s., diabetic diet, sliding scale insulin Assessment 3. Elevated TSH Plan: Will not initiate treatment yet pending echo results due to AFib with RVr and concern for making this worse with thyroid supplement. This can be something followed as an outpatient. Assessment 4. Questionable history of COPD without symptoms Plan: Will monitor as we initiate beta-austin treatment Assessment 5. History of hyperlipidemia possibly Plan: Will check fasting lipids in a.m. Code status is full code 80 minutes was spent with patient discussing with ER physician, nursing, care management, reviewing his clinic chart and hospital course and workup and discussing with patient in formulating a plan and documentation Quality VTE Deep Vein Thrombosis/Pulmonary Embolism Present on Admission: No
[2024-02-25] MEDS: METOPROLOL ER 25 MG TABLET PO (14:16)
--- NOTE | 2024-02-25 14:29 | CM.DANOTE ---
Initial DCP Assessment Note Pt is a 73 yo male, resident of [place], presents with dizziness, found to be in afib, admitted for further work up and medical management. PCP: Tripp Spears Payer: [facility] Reviewed chart, met w/patient to introduce self and role. Patient reports living alone since his spouse 4 years ago, has a step daughter that lives out of town that he sees occasionally. Patient is active and indp, drives and manages his property and garden. Patient lists many neighbors and friends that he finds supportive and denies needs from this CM team currently. No barriers identified at this time to patient's safe discharge home w/family and friends to assist as needed; close outpatient f/u recommended. CM team will plan to follow closely in case any DC needs or concerns arise. LUCIEN Ahumada Discharge Planning/Care Management CM Discharge Assessment Start: 02/25/24 14:26 Freq: Status: Active Protocol: Document 02/25/24 14:26 ANTWAN (Rec: 02/25/24 14:29 ANTWAN [id number]) Discharge Planning Assessment Assigned Tourist Information Assistant LUCIEN Alvarenga DPOA/Assigned Designee Name clarisse Cabaer ([place]) Contact Information [phone] Advance Directives? Yes Advance Directives on File No History Provided By Patient,Medical Record Prior Living Arrangements House Household Members none Type of transporation used prior to Drives own vehicle admit Independent with ADL's Yes Is patient alert and oriented? Yes Comment shower seat Barriers to Discharge No Discharge Plan Home Transportation Arrangement friend Referrals Initiated None needed
[2024-02-25 15:29] LABS: Cholesterol 145 mg/dL (140-199); HDL Cholesterol 44 mg/dL (40-60); LDL Cholesterol Calculated 76 mg/dL (<100); Triglycerides 123 mg/dL (35-150)
--- NOTE | 2024-02-25 17:32 | PC.NURSE ---
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 Plan to give IV metoprolol but BP 95/[address] Nevaeh barrera and MD wants to wait on the IV drug at this time. No new orders. Remains on tele and Pt asymptomatic. Eating dinner with no complaints. Call light in reach.
--- NOTE | 2024-02-25 23:03 | PC.NURSE ---
Addendum entered by Paulina Orozco R.N. 02/26/24 06:29: Patient awoke this morning wanting to go on a walk, notified by WHEELCHAIR RENTAL CLERK that his HR has jumped to the 150's-160's. Patient states that he feels fine, denies chest pain, dizziness, SOB. Asked patient to go back to bed. BP: 108/76. IV Metoprolol given. HR currently in 110's. 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 Denies chest pain, nausea, SOB, dizziness, or general discomfort. States that he feels fine. Took a shower before bed. Agrees to use the call-light when getting OOB. Plan of care ongoing.
[2024-02-26] VITALS (10 sets, daily range): BP systolic 96–110; BP diastolic 58–74; PULSE 69–150; RESP 16–22; TEMP 36.2–36.8; O2SAT 94–98
[2024-02-26 05:28] LABS: Add Manual Diff / Slide Review NO; Basophils Absolute Auto 0 /uL (0-100); Basophils Percent Auto 0.7 % (0-2); Eosinophils Absolute Auto 300 /uL (0-450); Eosinophils Percent Auto 4.8 % (2-4); Hematocrit 47.4 % (41-53); Hemoglobin 16.5 g/dL (13.5-17.5); Lymphocytes Absolute Auto 1800 /uL (1100-4500); Lymphocytes Percent Auto 27.3 % (25-40); Mean Corpuscular HGB Conc 34.8 % (30-36); Mean Corpuscular Volume 100.7 fL (80-100); Monocytes Absolute Auto 800 /uL (0-900); Neutrophils Absolute Auto 3600 /uL (1500-7000); Neutrophils Percent Auto 55.2 % (50-75); Platelet Count 189 X10^3/uL (150-400); Red Cell Distribution Width 13.9 % (11.6-14.8); White Blood Cell Count 6.5 X10^3/uL (4.5-11.0)
[2024-02-26] MEDS: PANTOPRAZOLE DR 20 MG TABLET PO (05:28)
[2024-02-26 05:43] LABS: Alanine Aminotransferase 31 IU/L (<50); Albumin 3.7 g/dL (3.5-5.0); Albumin Globulin Ratio 1.4 (1.0-2.8); Alkaline Phosphatase 109 U/L (38-126); Aspartate Aminotransferase 30 IU/L (17-59); BUN Creatinine Ratio 21.3 (6-22); Bilirubin Total 0.8 mg/dL (0.2-1.3); Blood Urea Nitrogen 17 mg/dL (9-20); Carbon Dioxide 22 mmol/L (22-32); Chloride 109 mmol/L (98-107); Estimated Glomerular Filt Rate > 60 mL/min (>60); Globulin 2.6 g/dL (1.7-4.1); Glucose 198 mg/dL (80-110); HEMOLYSIS < 15 (0-50); Sodium 136 mmol/L (137-145); Total Protein 6.3 g/dL (6.3-8.2)
[2024-02-26 05:50] LABS: NT-proBNP (BNP-Adult 18+) 2570 pg/mL (<450)
[2024-02-26] MEDS: METOPROLOL TARTRATE 5 MG/5 ML INJ IV ×3 (06:23→23:41)
[2024-02-26] MEDS: ACETAMINOPHEN 325 MG TABLET 650 MG PO ×2 (06:23→17:50)
[2024-02-26] MEDS: INSULIN REGULAR 100 UNIT/ML 3 ML VIAL SUBCUT ×3 (08:12→17:32)
[2024-02-26] MEDS: APIXABAN 5 MG TABLET PO ×2 (08:13→20:33)
[2024-02-26] MEDS: DOCUSATE 100 MG CAPSULE PO ×2 (08:13→20:33)
--- NOTE | 2024-02-26 14:01 | CM.DPNOTE ---
DCP Note PUMPER GAUGER APPRENTICE reviewed EMR. Per Nevaeh pt not medically stable for dc today. Per nursing staff, HR continues to struggled to be controlled. No barriers identified at this time for safe dc home with friends/neighbors to assist when medically stable. CM team wll continue to follow closely in case of any DC needs that arise. Laurence Edmonds, LUCIEN
[2024-02-26] MEDS: METOPROLOL ER 25 MG TABLET PO ×2 (14:18→20:33)
--- NOTE | 2024-02-26 16:37 | PM.PN.1 ---
Subjective Subjective Date Patient Seen: 02/26/24 Time Patient Seen: 16:38 Interval history: Patient states that he is feeling better. He has not having the lightheadedness dizziness or chest pressure that he was having previously. He has gotten up and ambulated but still his heart rate will rise to 150s. He was receiving metoprolol XL yesterday but this did get held due to blood pressure parameters. He did get 2-3 doses of IV metoprolol. Otherwise patient denies complaints other than having neck and low back pain. He has not having any abdominal pain. Not having any shortness of breath. He has a chronic cough which is unchanged. He is eating p.o. diet without difficulty. Normal urination and stooling. No new problems 12 point review of systems is otherwise negative Exam Vital Signs (past 8 hours): - 02/26/24 12:00 02/26/24 14:18 02/26/24 16:00 Temperature 97.1 F L 98.2 F Pulse Rate 76 98 H 79 Respiratory Rate 16 18 Blood Pressure 101/59 L 101/71 107/58 L Pulse Oximetry 96 98 Oxygen Flow Rate 0 0 Oxygen Delivery Method Room Air Oxygen Flow Rate 0 Narrative Exam Narrative: Afebrile vital signs are stable other than AFib with RVR with ambulation Alert and oriented x3 in no apparent distress HEENT unremarkable Neck: Supple without adenopathy or thyromegaly or bruits Chest: Clear to auscultation without wheezes rhonchi or crackles Cor: Irregularly irregular rhythm with a variable rate, distant S1-S2 no audible murmur Abdomen: Positive bowel sounds, soft, nontender, nondistended Extremities: No edema, pulses intact Neurologic exam is nonfocal Objective Labs 02/26/24 04:45 02/26/24 04:45 Labs: Laboratory Results - last 24 hr 02/26/24 04:45 WBC 6.5 RBC 4.70 Hgb 16.5 Hct 47.4 MCV 100.7 H MCH 35.0 H MCHC 34.8 RDW 13.9 Plt Count 189 Neut % (Auto) 55.2 Lymph % (Auto) 27.3 [place] % (Auto) 12.0 Eos % (Auto) 4.8 H Baso % (Auto) 0.7 Neut # (Auto) 3600 Lymph # (Auto) 1800 [place] # (Auto) 800 Eos # (Auto) 300 Baso # (Auto) 0 Sodium 136 L Potassium 4.0 Chloride 109 H Carbon Dioxide 22 BUN 17 Creatinine 0.80 Estimated GFR > 60 BUN/Creatinine Ratio 21.3 Glucose 198 H Calcium 9.0 Total Bilirubin 0.8 AST 30 ALT 31 Alkaline Phosphatase 109 NT-Pro-B Natriuret Pep 2570 H Total Protein 6.3 Albumin 3.7 Globulin 2.6 Albumin/Globulin Ratio 1.4 PFSH Medical History History of COVID-19 (~2020) PTSD (post-traumatic stress disorder) COPD (chronic obstructive pulmonary disease) History of cardioversion Paroxysmal atrial fibrillation Unspecified asthma (06/08/11) Esophageal dysmotility Hyperlipidemia Hypothyroidism Type 2 diabetes mellitus without complication (11/16/17) Essential hypertension (11/16/17) 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/17) Atrial fibrillation (03/12/14) Chronic cholecystitis Surgical History H/O vasectomy History of arthroscopy of right shoulder Hx of shoulder surgery Hx of eye surgery Hx of bilateral cataract extraction Hx of arthroscopy of left knee Hx of arthroscopy of right knee Hx of fusion of cervical spine (2017) History of carpal tunnel repair Status post hernia repair Status post cholecystectomy History of knee replacement Family History Mother Hypertension Gallstones Father Hypertension Cancer Grandmother Hypertension Heart disease Cancer Social History marital status: number of children: 1 household members: none lives independently: Yes caregiver/support person: No housing: house pets and animals: No education level: college occupational status: other current occupational exposures/hazards: No 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 Patient with a distant history over 20 years ago but has not had any problems since then. Assessment 1. AFib with RVR patient was admitted to the hospital and placed on telemetry. Patient is feeling better clinically and overall improved with improved heart rate. Echo was done yesterday but not read until today and shows EF of 45-50% with mild right atrial dilation mild left ventricle thickening. Not significantly changed from an echo in 2020 other than both ventricles are less dynamic on this echo. CK and troponins were done and no evidence of acute MD or acute coronary syndrome. No other clear etiology for development of AFib with RVR. In retrospect patient thinks probably this has been going on for quite a while. He was started on Eliquis is tolerating it well. He understands the rationale for treatment. He is now on metoprolol XL 25 mg twice daily. Has been some difficulty because his blood pressures are low and it has been held and then he was given IV metoprolol. I think if his rate is not improved then may need to switch to diltiazem tomorrow. Assessment 2. Type 2 diabetes very poorly controlled Plan: Will do CBGS q.a.c. and q.h.s., diabetic diet, sliding scale insulin. Blood sugars are starting to come down. Clearly he needs more aggressive treatment but patient is resistant to this and has been refusing Assessment 3. Elevated TSH Plan: Patient with a history in his clinic chart saying he has hypothyroidism but patient declines this. Will leave this up to the discretion of his PCP whether to initiate thyroid treatment or if this is potentially spurious result related to other medical problems This can be something followed as an outpatient. Assessment 4. Questionable history of COPD without symptoms Plan: Will monitor as we initiate beta-austin treatment Assessment 5. History of hyperlipidemia possibly Plan: Lipids pending Code status is full code 54 minutes was spent with patient discussing with, nursing, care management, reviewing his clinic chart and hospital course and workup and discussing with patient in formulating a plan and documentation Quality VTE Deep Vein Thrombosis/Pulmonary Embolism Present on Admission: No
[2024-02-27] VITALS (10 sets, daily range): BP systolic 89–99; BP diastolic 65–77; PULSE 62–105; RESP 16–19; TEMP 36.1–36.6; O2SAT 92–97
[2024-02-27] MEDS: ACETAMINOPHEN 325 MG TABLET 650 MG PO ×3 (00:58→21:28)
--- NOTE | 2024-02-27 01:12 | PC.NURSE ---
Addendum entered by Paulina Orozco R.N. 02/27/24 06:21: BP 96/65. Addendum entered by Paulina Orozco R.N. 02/27/24 05:22: BP 80/59 (MAP 66), HR in the 90's. Patient is alert and states he feels fine. Notified MD Herring, no new orders at this time. 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 HR increased to 150's-160's while ambulating to the bathroom; denied CP, SOB, dizziness, stating that he felt fine. BP 109/73. IV Metoprolol given, HR decreased to 110's. Patient back in bed. Complaints of 4/10 chronic neck pain, tylenol & warm blankets given. Oriented to call-light. Plan of care ongoing.
[2024-02-27] MEDS: PANTOPRAZOLE DR 20 MG TABLET PO (05:14)
[2024-02-27 05:27] LABS: Add Manual Diff / Slide Review NO; Basophils Absolute Auto 0 /uL (0-100); Basophils Percent Auto 0.7 % (0-2); Eosinophils Absolute Auto 300 /uL (0-450); Eosinophils Percent Auto 4.3 % (2-4); Hematocrit 44.8 % (41-53); Hemoglobin 15.7 g/dL (13.5-17.5); Lymphocytes Absolute Auto 1900 /uL (1100-4500); Lymphocytes Percent Auto 29.2 % (25-40); Mean Corpuscular Hemoglobin 35.3 PG (26-34); Mean Corpuscular Volume 100.9 fL (80-100); Monocytes Absolute Auto 800 /uL (0-900); Monocytes Percent Auto 11.6 % (3-14); Neutrophils Absolute Auto 3600 /uL (1500-7000); Neutrophils Percent Auto 54.2 % (50-75); Platelet Count 182 X10^3/uL (150-400); Red Blood Cell Count 4.44 X10^6/uL (4.5-5.9); Red Cell Distribution Width 13.8 % (11.6-14.8); White Blood Cell Count 6.6 X10^3/uL (4.5-11.0)
[2024-02-27 05:34] LABS: BUN Creatinine Ratio 21.5 (6-22); Blood Urea Nitrogen 20 mg/dL (9-20); Carbon Dioxide 27 mmol/L (22-32); Chloride 105 mmol/L (98-107); Estimated Glomerular Filt Rate > 60 mL/min (>60); Glucose 188 mg/dL (80-110); HEMOLYSIS 18 (0-50); Sodium 136 mmol/L (137-145)
--- NOTE | 2024-02-27 08:23 | PM.PN.1 ---
Subjective Subjective Date Patient Seen: 02/27/24 Time Patient Seen: 08:23 Interval history: 73-year-old male who actually had an appointment to see me later this morning in the clinic to follow-up on his diabetes (which is been horribly controlled likely secondary to diet and patient's refusal of medications), who is admitted via emergency department with atrial fibrillation and rapid ventricular response. Patient had self discontinued all of his cardiac medications several years ago and itself discontinued any cardiology follow-up. He was being followed for the paroxysmal atrial fibrillation as well as nonischemic cardiomyopathy, frequent PVCs, and nonsustained VT. He was last seen as far as we can tell in September 2021 at [facility] In any event he was admitted with the rapid atrial fibrillation. Rate was controlled some what diltiazem in the ER he was switch to oral metoprolol. Been difficult to control his rate as he has ongoing hypotension as well with blood pressure right around 90 systolic despite relatively low-dose metoprolol. Heart rate rises easily 120-150 with any activity on current dose metoprolol, which is keeping his blood pressure at 90s systolic. Patient himself feels fine doing fine. He can feel the tachycardia when his heart rates accelerated but otherwise feeling okay Obviously he has not been really following a diabetic diet and unknown whether he has been taking his oral glipizide or not for his diabetes. Recent A1c done in preparation for today's outpatient clinic visit was 10.5 Exam Vital Signs (past 8 hours): - 02/27/24 04:28 02/27/24 05:30 02/27/24 06:21 Temperature 97.5 F L Pulse Rate 66 Respiratory Rate 19 Blood Pressure 89/65 L 90/69 96/65 Pulse Oximetry 92 Oxygen Flow Rate 0 Oxygen Delivery Method Room Air Oxygen Flow Rate 0 Objective Labs 02/27/24 04:45 02/27/24 04:45 Labs: Laboratory Results - last 24 hr 02/27/24 04:45 WBC 6.6 RBC 4.44 L Hgb 15.7 Hct 44.8 MCV 100.9 H MCH 35.3 H MCHC 35.0 RDW 13.8 Plt Count 182 Neut % (Auto) 54.2 Lymph % (Auto) 29.2 [place] % (Auto) 11.6 Eos % (Auto) 4.3 H Baso % (Auto) 0.7 Neut # (Auto) 3600 Lymph # (Auto) 1900 Amite # (Auto) 800 Eos # (Auto) 300 Baso # (Auto) 0 Sodium 136 L Potassium 4.0 Chloride 105 Carbon Dioxide 27 BUN 20 Creatinine 0.93 Estimated GFR > 60 BUN/Creatinine Ratio 21.5 Glucose 188 H Calcium 9.0 PFSH Medical History History of COVID-19 (~2020) PTSD (post-traumatic stress disorder) COPD (chronic obstructive pulmonary disease) History of cardioversion Paroxysmal atrial fibrillation Unspecified asthma (06/08/11) Esophageal dysmotility Hyperlipidemia Hypothyroidism Type 2 diabetes mellitus without complication (11/16/17) Essential hypertension (11/16/17) 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/17) Atrial fibrillation (03/12/14) Chronic cholecystitis Surgical History H/O vasectomy History of arthroscopy of right shoulder Hx of shoulder surgery Hx of eye surgery Hx of bilateral cataract extraction Hx of arthroscopy of left knee Hx of arthroscopy of right knee Hx of fusion of cervical spine (2017) History of carpal tunnel repair Status post hernia repair Status post cholecystectomy History of knee replacement Family History Mother Hypertension Gallstones Father Hypertension Cancer Grandmother Hypertension Heart disease Cancer Social History marital status: number of children: 1 household members: none lives independently: Yes caregiver/support person: No housing: house pets and animals: No education level: college occupational status: other current occupational exposures/hazards: No 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 Paroxysmal atrial fibrillation with rapid ventricular response-patient needs additional rate control does not seem like his blood pressure is going to tolerate any blood pressure affecting meds. I am going to give him a single dose of parental digoxin and then follow that with oral digoxin and will monitor his heart rate. He has already been started on anticoagulation which is entirely appropriate. Echocardiogram fortunately was essentially unremarkable. He is going to need to be reconnected with Cardiology, and per his request will likely refer him to [facility]. May benefit from cardioversion at some point but that is unknown duration of his current atrial fibrillation so we can rate control him then plan for elective cardioversion down the road that seems like a more appropriate strategy 2. Diabetes-patient's diabetes is super poorly controlled. He has on a controlled diet here receiving insulin I am going to put him back on his oral glipizide. He will need careful management as an outpatient, and I am not prepared to start him on insulin as yet, with him the biggest issue in the past anyway has been dietary indiscretion and he really needs to follow a more diabetic diet. Diabetes education etcetera be entirely appropriate but again that has an outpatient process. For now continue insulin coverage as well as resume his oral glipizide 3. Hypertension-obviously patient is relatively hypotensive if anything. If blood pressure continues to be an issue may need to re-evaluate possibility of cardioversion sooner rather than later, perhaps with prior BANDAR to rule out clot (which will require transfer to an alternate facility) 4. Hypothyroidism-patient with a prior history of hypothyroidism. He was self discontinued all of his meds. Recent TSH was elevated but T4 was within the normal range. Probably does need some degree of thyroid replacement therapy but I am going to hold off on that given the active atrial fibrillation with rapid ventricular response etcetera. I would like to avoid making him hyperthyroid on any level, as this will exacerbate his rhythm issues potentially Quality VTE Deep Vein Thrombosis/Pulmonary Embolism Present on Admission: No PROFEE Charge codes Subsequent inpatient/observation care: [id number]
[2024-02-27] MEDS: METOPROLOL ER 25 MG TABLET PO ×2 (08:56→21:29)
[2024-02-27] MEDS: INSULIN REGULAR 100 UNIT/ML 3 ML VIAL SUBCUT ×3 (08:56→17:11)
[2024-02-27] MEDS: DOCUSATE 100 MG CAPSULE PO (08:56)
[2024-02-27] MEDS: glipiZIDE 5 MG TABLET 10 MG PO ×2 (08:57→17:10)
[2024-02-27] MEDS: DIGOXIN 500 MCG/2 ML AMPUL IV (08:57)
[2024-02-27] MEDS: APIXABAN 5 MG TABLET PO ×2 (08:59→21:31)
--- NOTE | 2024-02-27 12:20 | PC.NURSE ---
Patient is alert and oriented x4, up with sba to use the bathroom. Denies pain or heart palpitation. His heart is irregular upon auscultation. Given 500mcg of iv Digoxin, heart rate 110. He tolerated this well. Tolerating diet and resting comfortably.
--- NOTE | 2024-02-27 12:24 | CM.DPNOTE ---
DCP Note TESTING DIRECTOR reviewed EMR. Per pharmacist in charge owner, pt's HR continues to remain out of control. Per Karoline RN note, pt's HR remains 110. Per Dr. Spears PN, pt is going to have some changes in meds today. Gustavo wants pt to get restablished with Cardiology consult at [facility]. per Gustavo ntoe, diabetes poorly controlled at home. No dietary/diabetes consult at this time- gustavo note reports wanting that to occur in the OP setting. Gustavo note suggests pt would be best served with a diabetic diet at this time. No clear dc timeline at this time. Per previous CM notes, pt denied CM needs and anticipates home with friends/neighbors when stable. No barriers identified at this time to patient's safe discharge home w/family and friends to assist as needed; close outpatient f/u recommended. CM team will plan to follow closely in case any DC needs or concerns arise. LUCIEN Masterson
[2024-02-27] MEDS: DIGOXIN 0.125 MG TABLET 0.25 MG PO (17:18)
[2024-02-28 00:34] VITALS: BP 98/63; PULSE 69; RESP 19; TEMP 36.2; O2SAT 94
[2024-02-28 04:35] VITALS: BP 98/62; PULSE 60; RESP 19; TEMP 36.2; O2SAT 97
[2024-02-28] MEDS: PANTOPRAZOLE DR 20 MG TABLET PO (05:56)
[2024-02-28] MEDS: ACETAMINOPHEN 325 MG TABLET 650 MG PO (05:56)
[2024-02-28] MEDS: glipiZIDE 5 MG TABLET 10 MG PO (06:30)
--- NOTE | 2024-02-28 07:56 | PM.DS.1 ---
History of Present Illness History of Present Illness Date Patient Seen: 02/28/24 Time Patient Seen: 07:56 Chief complaint: chest problems/balance issues Narrative: This is a very pleasant 73-year-old patient of Dr. Spears who presents to the ER with dizziness. Patient states that he has had a to the 3 week history of intermittent dizziness feeling weak and short of breath and having some balance issues maybe some chest tightness but no chest pain. Patient has been active working in his garden with no symptoms. Fairly difficult historian. He presented to the ER and He was found to be in atrial fibrillation with rapid ventricular rate. He was admitted for further treatment and workup. Patient with the past medical history of type 2 diabetes very poorly controlled with a recent hemoglobin A1c of over 10. Also patient with history of PE AFib has had previous cardioversions, COPD, hyperlipidemia, hypothyroidism, hypertension. However the only medications it appears he is on is glipizide. Patient states that previously over 20 years ago he had AFib and underwent cardioversion x3. Has not had any problems since then and has not been on blood thinners. {from Dr. Herring's H&P 02/25/24} Discharge Providers Provider Date of admission: 02/24/24 20:13 Discharge Date: 02/28/24 Primary care physician: Tripp Spears MD Consults: 02/24/24 21:27 Consult to Discharge Planning Routine Comment: Discharge provider: Tripp Spears MD Summary Hospital Course Discharge Diagnosis: 1. Atrial fibrillation with rapid ventricular response 2. Paroxysmal atrial fibrillation 3. Type 2 diabetes uncontrolled with hyperglycemia 4. Hypothyroidism 5. Hypertension Hospital Course: Patient was admitted as above with atrial fibrillation with rapid ventricular response. Rate was controlled with parental medications. He was started on oral metoprolol which was in adequate in controlling his heart rate in part because of inability to escalate doses due to modest hypotension. Digoxin was added to the regimen after echocardiography demonstrated no new findings and no significant valvular heart disease etcetera. With the addition of digoxin patient's heart rate was much better controlled even with activity. Therefore patient was felt to be stable to be discharged home on a combination of metoprolol and digoxin for rate control with early follow-up with Cardiology Patient came into the hospital not taking any medications for his heart including no blood thinners despite his history of known paroxysmal atrial fibrillation. He was started on Eliquis and is agree to continue that upon discharge. He was therefore not a candidate for cardioversion at any point given his lack of anticoagulation Patient's diabetes also very poorly controlled with recent hemoglobin A1c in excess of 10. Patient's blood sugar was much better controlled in the hospital with intermittent insulin and a controlled diet. Patient agreed to resume a higher dose of his glipizide medication and to do his best to follow a diabetic diet and this will be addressed as an outpatient as well Patient's blood pressure as above was soft at best with an average systolic pressure of about 90-95. No need for additional medication Patient will need lipids etcetera checked as an outpatient which has not been done in some time, again as he has declined medication for this in the past Exam Vital Signs (past 8 hours): - 02/28/24 00:34 02/28/24 04:35 Temperature 97.2 F L 97.2 F L Pulse Rate 69 60 Respiratory Rate 19 19 Blood Pressure 98/63 98/62 Pulse Oximetry 94 97 Oxygen Flow Rate 0 0 Oxygen Delivery Method Room Air Oxygen Flow Rate 0 Objective Labs 02/27/24 04:45 02/27/24 04:45 [facility] Medical History History of COVID-19 (~2020) PTSD (post-traumatic stress disorder) COPD (chronic obstructive pulmonary disease) History of cardioversion Paroxysmal atrial fibrillation Unspecified asthma (06/08/11) Esophageal dysmotility Hyperlipidemia Hypothyroidism Type 2 diabetes mellitus without complication (11/16/17) Essential hypertension (11/16/17) 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/17) Atrial fibrillation (03/12/14) Chronic cholecystitis Surgical History H/O vasectomy History of arthroscopy of right shoulder Hx of shoulder surgery Hx of eye surgery Hx of bilateral cataract extraction Hx of arthroscopy of left knee Hx of arthroscopy of right knee Hx of fusion of cervical spine (2017) History of carpal tunnel repair Status post hernia repair Status post cholecystectomy History of knee replacement Family History Mother Hypertension Gallstones Father Hypertension Cancer Grandmother Hypertension Heart disease Cancer Social History marital status: number of children: 1 household members: none lives independently: Yes caregiver/support person: No housing: house pets and animals: No education level: college occupational status: other current occupational exposures/hazards: No 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 Eliquis for anticoagulation for stroke risk reduction. Patient also needs glipizide at full dose 10 mg b.i.d. for better control of his blood sugars and he will need some diabetes education including diet instruction as an outpatient Close follow-up as an outpatient to ensure adequate rate control with his atrial fibrillation and improvement in his blood sugars overall. In addition patient be referred to Cardiology for re-evaluation since he has been lost to follow-up since 2020 (to Cardiology) Discharge Plan Discharge Plan Patient Disposition: Home Discharge orders & Medications Prescriptions: New apixaban 5 mg tablet 5 mg PO BID Qty: 60 3RF metoprolol succinate 25 mg Tablet Extended Release 24 Hr 25 mg PO BID Qty: 60 3RF digoxin 250 mcg (0.25 mg) tablet 250 mcg PO DAILY Qty: 30 3RF glipizide 10 mg tablet 10 mg PO BID Qty: 180 3RF Discontinued glipizide 5 mg tablet 5 mg PO BID Qty: 180 3RF No Action (DME) blood[place]glucose [place] [facility] Instructions .ROUTE .MEDSUPPLY Qty: 1 0RF Rx Instructions: As directed (DME) Blood Glucose Test Strip See Rx Instructions .ROUTE .MEDSUPPLY Qty: 100 3RF Rx Instructions: Use to check 1-2x a day for blood sugar (DME) lancets Misc See Rx Instructions .ROUTE .MEDSUPPLY Qty: 100 0RF Rx Instructions: Use to check blood sugars 1-2x a day (DME) Disabled Parking See Rx Instructions .ROUTE .MEDSUPPLY Qty: 1 0RF Rx Instructions: Patient qualifies for disabled parking as per the attached form. Follow up/Referrals: Tripp Spears MD [Primary Care Provider] - 1 Week (7-10 days) Diet/Activity/Treatments Diet: Diet as Tolerated and Carb-consistent/Diabetic Visit Report/Discharge Packet Instructions: Atrial Fibrillation, DI for Atrial Fibrillation Stand Alone Forms: Patient Portal/API Discharge Data Primary Care Provider: Tripp Spears Quality VTE Deep Vein Thrombosis/Pulmonary Embolism Present on Admission: No IH PROFEE Charge Codes Discharge inpatient/observation: [id number]
[2024-02-28 08:00] VITALS: BP 104/57; PULSE 64; RESP 16; TEMP 36.2; O2SAT 93
[2024-02-28] MEDS: INSULIN REGULAR 100 UNIT/ML 3 ML VIAL SUBCUT (08:37)
[2024-02-28] MEDS: METOPROLOL ER 25 MG TABLET PO (08:37)
[2024-02-28] MEDS: APIXABAN 5 MG TABLET PO (08:38)
--- NOTE | 2024-02-28 09:03 | CM.DPNOTE ---
DCP Note SANITATION MANAGER reviewed EMR. Per chart review, pt to dc home today. SANITATION MANAGER met briefly with pt in room. Eager to dc home. Denies any CM needs. Reports ride will be here at 10am to pick him up. Plan: home today with friend/neighbor support, transport with friend. No CM needs. CM team will continue to follow as needed. LUCIEN Masterson
== END 2024-02-28 09:58 | disposition home or self-care (01) | DRG 310 ==
LOC: ED 20:12 → AC 20:18
PROVIDERS: Emergency Medicine; Family Medicine; Admitting Provider Internal Medicine; Emergency Provider Emergency Medicine; Family Provider Internal Medicine; PCP Internal Medicine; Visit Provider Internal Medicine
DX: I48.0 Paroxysmal atrial fibrillation (principal); E11.65 Type 2 diabetes mellitus with hyperglycemia; I10 Essential (primary) hypertension; E03.9 Hypothyroidism, unspecified; Z79.84 Long term (current) use of oral hypoglycemic drugs
CPT/HCPCS: 36415; 71045; 80048; 80053; 80061; 82550; 82962; 83036; 83690; 83735; 83880; 84439; 84443; 84484; 85025; 93005; 93306; 96374; 96375; 99233; 99238; 99284; 99285; J1160

== ENCOUNTER 2024-03-04 16:34 | Emergency (ER) | payer MEDICARE, BC, SELFPAY ==
[2024-02-24 21:44] VITALS: BMI 27.2
[2024-03-04] VITALS (8 sets, daily range): BP systolic 99–118; BP diastolic 61–82; PULSE 91–120; RESP 14–26; TEMP 37; O2SAT 92–97; BMI 26.4
--- NOTE | 2024-03-04 16:51 | DI.RAD.S_ITS ---
PROCEDURE: XR CHEST 1V INDICATIONS: chest pain TECHNIQUE: One view of the chest was acquired. COMPARISON: [facility], CR, XR CHEST 1V, 05/21/2023, 13:54. [facility], CR, XR CHEST 1V, 02/24/2024, 19:42. FINDINGS: Surgical changes and devices: Lower cervical spine fixation hardware is partially seen. Prior truncation of the right distal clavicle can be seen. Lungs and pleura: An incomplete inspiratory result is noted, causing a crowded appearance to the lung markings. No focal infiltrates are seen. No pneumothorax or significant pleural effusions are seen. Mediastinum: Mediastinal contours appear normal. Heart size is normal. Bones and chest wall: No suspicious bony lesions. Age-appropriate bony degenerative changes are seen. Overlying soft tissues appear unremarkable. IMPRESSION: Low lung volumes, without an acute abnormality seen by plain film. Postoperative and degenerative changes are seen. Dictated by: Warner Ross M.D. on 03/04/2024 at 16:17 Approved by: Warner Ross M.D. on 03/04/2024 at 16:17
--- NOTE | 2024-03-04 17:00 | ED_ITS ---
HPI - Arrhythmia/Palpitations General Chief Complaint: Arrhythmia/Palpitations Stated Complaint: SOB, low BP, high HR, shaky Time Seen by Provider: 03/04/24 16:44 Source: patient Mode of arrival: Family Vehicle History of Present Illness HPI narrative: Patient is 73-year-old male history of atrial fibrillation on Eliquis and digoxin presenting today with elevated heart rate shortness of breath and shakiness. He has not had any fever or chills but is complaining of some shakiness. He was recently admitted to the hospital February 23 were AFib with RVR, was ultimately started on digoxin secondary to hypotension and Eliquis. He feels like he is having many side effects from the new medications including decreased appetite. He has an appointment with his PCP in 4 days for follow-up. He denies any other symptoms including abdominal pain nausea vomiting Related Data Previous Rx's Medication Instructions Recorded blood sugar diagnostic (Blood #100 ea 04/03/21 Glucose Test strips) blood-glucose meter #1 ea 04/03/21 lancets #100 ea 04/03/21 Disabled Parking #1 ea 03/17/23 apixaban 5 mg tablet 5 mg PO BID #60 tabs 02/28/24 digoxin 250 mcg (0.25 mg) tablet 250 mcg PO DAILY #30 tabs 02/28/24 glipizide 10 mg tablet 10 mg PO BID #180 tabs 02/28/24 metoprolol succinate 25 mg 25 mg PO BID #60 tabs 02/28/24 tablet,extended release 24 hr Allergies Allergy/AdvReac Type Severity Reaction Status Date / Time metformin AdvReac Severe I had all Verified 11/07/23 15:32 the side effects lorazepam AdvReac Intermediate Headache Verified 11/07/23 15:47 Patient History Medical History History of COVID-19 (~2020) PTSD (post-traumatic stress disorder) COPD (chronic obstructive pulmonary disease) History of cardioversion Paroxysmal atrial fibrillation Unspecified asthma (06/08/11) Esophageal dysmotility Hyperlipidemia Hypothyroidism Type 2 diabetes mellitus without complication (11/16/17) Essential hypertension (11/16/17) 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/17) Atrial fibrillation (03/12/14) Chronic cholecystitis Surgical History H/O vasectomy History of arthroscopy of right shoulder Hx of shoulder surgery Hx of eye surgery Hx of bilateral cataract extraction Hx of arthroscopy of left knee Hx of arthroscopy of right knee Hx of fusion of cervical spine (2018) History of carpal tunnel repair Status post hernia repair Status post cholecystectomy History of knee replacement Family History Mother Hypertension Gallstones Father Hypertension Cancer Grandmother Hypertension Heart disease Cancer Social History marital status: number of children: 1 household members: none lives independently: Yes caregiver/support person: No housing: house pets and animals: No education level: college occupational status: other current occupational exposures/hazards: No 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/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: None leisure activities: fishing and other Smoking Status: Never smoker Tobacco: How many years used: 0 quit status: quit date established second hand exposure: Yes alcohol intake: current substance use type: does not use eating out: 1-3 times/week Type(s) of exercise: other and normal ROM and activity Smoking Status: Never smoker alcohol intake frequency: holidays/special occasions only Substance Use Type: does not use Exam Initial Vital Signs Initial Vital Signs: Vital Signs Temperature 98.6 F 03/04/24 16:35 Pulse Rate 120 H 03/04/24 16:35 Respiratory Rate 20 03/04/24 16:35 Blood Pressure 113/82 03/04/24 16:35 Pulse Oximetry 96 03/04/24 16:35 Oxygen Delivery Method Room Air 03/04/24 16:35 GENERAL: Alert talkative 73-year-old male HEENT: Head atraumatic,EOMI, pupils reactive, face symmetric, moist mucous membranes CARDIOVASCULAR: Irregular murmur RESPIRATORY: Breath sounds equal bilaterally, no wheezes rales or rhonchi. ABDOMEN: Soft, nontender. Normoactive bowel sounds all 4 quadrants. No guarding or rebound. EXTREMITIES: Normal range of motion, no clubbing or edema. Neurovascularly intact NEUROLOGICAL: Alert and oriented x4.Normal gait and speech. SKIN: Warm, dry, no laceration, no petechiae, no rashes or lesions. Course Orders Ordered: ED Orders 03/04/24 16:51 XR chest 1V Stat EKG-12 Lead Stat 03/04/24 17:09 Complete Blood Count AUTO DIFF Stat Comprehensive Metabolic Panel Stat Digoxin Stat Lipase Stat PTT Partial Thromboplastin Julián Stat Prothrombin Time INR Stat Troponin & CK Cardiac Panel Stat Vital Signs Vital signs: Vital Signs - 8 hr 03/04/24 16:35 03/04/24 16:48 03/04/24 16:49 Temperature 98.6 F Pulse Rate 120 H 115 H 116 H Respiratory Rate 20 14 18 Blood Pressure 113/82 Pulse Oximetry 96 96 97 Oxygen Delivery Method Room Air 03/04/24 16:49 03/04/24 17:00 03/04/24 17:00 Temperature Pulse Rate 97 H Respiratory Rate 24 Blood Pressure 113/82 118/70 Pulse Oximetry 96 Oxygen Delivery Method Room Air 03/04/24 17:30 03/04/24 17:31 03/04/24 17:31 Temperature Pulse Rate 91 H 101 H Respiratory Rate 22 21 Blood Pressure 99/61 Pulse Oximetry 93 92 Oxygen Delivery Method 03/04/24 18:00 03/04/24 18:00 03/04/24 18:05 Temperature Pulse Rate 107 H 102 H Respiratory Rate 21 26 H Blood Pressure 102/63 Pulse Oximetry 93 94 Oxygen Delivery Method Room Air 03/04/24 18:05 Temperature Pulse Rate Respiratory Rate Blood Pressure 107/71 Pulse Oximetry Oxygen Delivery Method MDM - Arrhythmia/Palpitations Lab Data 03/04/24 17:09 03/04/24 17:09 Labs: Lab Results 03/04/24 Range/Units 17:09 WBC 6.9 (4.5-11.0) X10^3/uL RBC 4.28 L (4.5-5.9) X10^6/uL Hgb 15.1 (13.5-17.5) g/dL Hct 43.2 (41-53) % MCV 100.8 H (80-100) fL MCH 35.2 H (26-34) PG MCHC 34.9 (30-36) % RDW 13.9 (11.6-14.8) % Plt Count 189 (150-400) X10^3/uL Neut % (Auto) 65.9 (50-75) % Lymph % (Auto) 20.0 L (25-40) % [place] % (Auto) 10.5 (3-14) % Eos % (Auto) 3.1 (2-4) % Baso % (Auto) 0.5 (0-2) % Neut # (Auto) 4500 (0280-2568) /uL Lymph # (Auto) 1400 (8799-3978) /uL [place] # (Auto) 700 (0-900) /uL Eos # (Auto) 200 (0-450) /uL Baso # (Auto) 0 (0-100) /uL PT 15.2 H (9.4-12.5) SECONDS INR 1.3 (0.9-1.3) APTT 35 (25.1-36.5) SECONDS Sodium 135 L (137-145) mmol/L Potassium 3.8 (3.4-5.1) mmol/L Chloride 106 (98-107) mmol/L Carbon Dioxide 22 (22-32) mmol/L BUN 14 (9-20) mg/dL Creatinine 0.86 (0.66-1.25) mg/dL Estimated GFR > 60 (>60) mL/min BUN/Creatinine Ratio 16.3 (6-22) Glucose 259 H (80-110) mg/dL Calcium 8.9 (8.4-10.2) mg/dL Total Bilirubin 0.6 (0.2-1.3) mg/dL AST 32 (17-59) IU/L ALT 27 (<50) IU/L Alkaline Phosphatase 116 (38-126) U/L Total Creatine Kinase 53 L (55-170) U/L Troponin I < 0.012 (0.01-0.034) ng/mL Total Protein 6.3 (6.3-8.2) g/dL Albumin 3.9 (3.5-5.0) g/dL Globulin 2.4 (1.7-4.1) g/dL Albumin/Globulin Ratio 1.6 (1.0-2.8) Lipase 68 (23-300) U/L Digoxin 0.5 L (0.8-2.0) ng/mL Imaging Data Chest x-ray: Radiologist's Impresson: PROCEDURE: XR CHEST 1V INDICATIONS: chest pain TECHNIQUE: One view of the chest was acquired. COMPARISON: [facility], CR, XR CHEST 1V, 05/21/2023, 13:54. [facility], CR, XR CHEST 1V, 02/24/2024, 19:42. FINDINGS: Surgical changes and devices: Lower cervical spine fixation hardware is partially seen. Prior truncation of the right distal clavicle can be seen. Lungs and pleura: An incomplete inspiratory result is noted, causing a crowded appearance to the lung markings. No focal infiltrates are seen. No pneumothorax or significant pleural effusions are seen. Mediastinum: Mediastinal contours appear normal. Heart size is normal. Bones and chest wall: No suspicious bony lesions. Age-appropriate bony degenerative changes are seen. Overlying soft tissues appear unremarkable. IMPRESSION: Low lung volumes, without an acute abnormality seen by plain film. Postoperative and degenerative changes are seen. Dictated by: Warner Ross M.D. on 03/04/2024 at 16 ECG Data Attestation: I personally reviewed and interpreted this ECG as follows: Prior ECG tracings: available for review Interpretation: Atrial fibrillation rate [address] changes PVCs noted MDM Narrative Medical decision making narrative: Patient is a 73-year-old male history of of atrial fibrillation recently admitted with AFib with RVR started on many new medications presents today with generalized weakness. He reports his blood pressure was low at home although was never under 100. He complains of some shakiness but no signs or symptoms of infection. Blood work has been reviewed: W BC 6.9, hemoglobin 15.1, hematocrit 43.2, platelets 189, INR 1.3, PTT 35, sodium 135 potassium 3.8 chloride 106 carbon dioxide 22 BUN 14 creatinine troponin negative Chest x-ray has been reviewed no acute cardiopulmonary process EKG reviewed as above rate controlled atrial fibrillation with PVC Previous records have been reviewed including last admission prior echo does show an EF of 50-55% Patient comes in today with some generalized weakness. Pressure is a little on the low side but maintains a systolic greater than 100. I suspect that he is adjusting to some of his new medications. He has no evidence of infection. He has an appointment with his PCP in a couple of day. He is currently rate controlled on his medications. At this time I recommend that he take it easy follow up with his doctor he may require some medication adjustment. Discharge Plan Departure Patient Disposition: Home Clinical Impression: Atrial fibrillation Instructions: DI for Atrial Fibrillation Activity Restrictions/Additional Instructions: *You have been diagnosed with atrial fibrillation *What to do: At this time please continue to your blood pressure 1 to 2 times a day. You may be experiencing some side effects of your new medication *Continue to take medications as directed *Follow up with your primary care provider in 2-3 days or call [phone] *Return to ER if you should have dizziness lightheadedness blood pressure less than 95/60, passing or any new, worsening or concerning symptoms Prescriptions: No Action (DME) blood-glucose meter Misc See Rx Instructions .ROUTE .MEDSUPPLY Qty: 1 0RF Rx Instructions: As directed (DME) Blood Glucose Test Strip See Rx Instructions .ROUTE .MEDSUPPLY Qty: 100 3RF Rx Instructions: Use to check 1-2x a day for blood sugar (DME) lancets Misc See Rx Instructions .ROUTE .MEDSUPPLY Qty: 100 0RF Rx Instructions: Use to check blood sugars 1-2x a day (DME) Disabled Parking See Rx Instructions .ROUTE .MEDSUPPLY Qty: 1 0RF Rx Instructions: Patient qualifies for disabled parking as per the attached form. apixaban 5 mg tablet 5 mg PO BID Qty: 60 3RF metoprolol succinate 25 mg Tablet Extended Release 24 Hr 25 mg PO BID Qty: 60 3RF digoxin 250 mcg (0.25 mg) tablet 250 mcg PO DAILY Qty: 30 3RF glipizide 10 mg tablet 10 mg PO BID Qty: 180 3RF Referrals: Tripp Spears MD [Primary Care Provider] - Stand Alone Forms: Patient Portal/API
[2024-03-04 17:35] LABS: Add Manual Diff / Slide Review NO; Basophils Absolute Auto 0 /uL (0-100); Basophils Percent Auto 0.5 % (0-2); Eosinophils Absolute Auto 200 /uL (0-450); Eosinophils Percent Auto 3.1 % (2-4); Hematocrit 43.2 % (41-53); Hemoglobin 15.1 g/dL (13.5-17.5); INR 1.3 (0.9-1.3); Lymphocytes Absolute Auto 1400 /uL (1100-4500); Mean Corpuscular HGB Conc 34.9 % (30-36); Mean Corpuscular Hemoglobin 35.2 PG (26-34); Mean Corpuscular Volume 100.8 fL (80-100); Monocytes Absolute Auto 700 /uL (0-900); Monocytes Percent Auto 10.5 % (3-14); Neutrophils Absolute Auto 4500 /uL (1500-7000); Neutrophils Percent Auto 65.9 % (50-75); Platelet Count 189 X10^3/uL (150-400); Prothrombin Time 15.2 SECONDS (9.4-12.5); Red Blood Cell Count 4.28 X10^6/uL (4.5-5.9); Red Cell Distribution Width 13.9 % (11.6-14.8); White Blood Cell Count 6.9 X10^3/uL (4.5-11.0)
[2024-03-04 17:38] LABS: PTT Partial Thromboplastin Tim 35 SECONDS (25.1-36.5)
[2024-03-04 17:41] LABS: Alanine Aminotransferase 27 IU/L (<50); Albumin 3.9 g/dL (3.5-5.0); Albumin Globulin Ratio 1.6 (1.0-2.8); Alkaline Phosphatase 116 U/L (38-126); Aspartate Aminotransferase 32 IU/L (17-59); BUN Creatinine Ratio 16.3 (6-22); Bilirubin Total 0.6 mg/dL (0.2-1.3); Blood Urea Nitrogen 14 mg/dL (9-20); Calcium 8.9 mg/dL (8.4-10.2); Carbon Dioxide 22 mmol/L (22-32); Chloride 106 mmol/L (98-107); Creatine Kinase 53 U/L (55-170); Estimated Glomerular Filt Rate > 60 mL/min (>60); Globulin 2.4 g/dL (1.7-4.1); Glucose 259 mg/dL (80-110); HEMOLYSIS 24 (0-50); Lipase 68 U/L (23-300); Potassium 3.8 mmol/L (3.4-5.1); Sodium 135 mmol/L (137-145); Total Protein 6.3 g/dL (6.3-8.2)
[2024-03-04 17:52] LABS: Digoxin 0.5 ng/mL (0.8-2.0); Troponin I < 0.012 ng/mL (0.01-0.034)
== END 2024-03-04 18:22 | disposition home or self-care (01) ==
PROVIDERS: Emergency Provider Emergency Medicine; Family Provider Internal Medicine; PCP Internal Medicine
DX: I48.91 Unspecified atrial fibrillation (principal); R07.9 Chest pain, unspecified
CPT/HCPCS: 36415; 71045; 80053; 80162; 82550; 83690; 84484; 85025; 85610; 85730; 93005; 99284

== ENCOUNTER → 2024-03-08 11:05 | Outpatient (CLI) | payer MEDICARE, BC, SELFPAY ==
[2024-02-24 21:44] VITALS: BMI 27.2
[2024-03-08 11:47] LABS: Add Manual Diff / Slide Review NO; Basophils Absolute Auto 0 /uL (0-100); Basophils Percent Auto 0.5 % (0-2); Eosinophils Absolute Auto 200 /uL (0-450); Eosinophils Percent Auto 3.4 % (2-4); Hematocrit 44.7 % (41-53); Hemoglobin 15.3 g/dL (13.5-17.5); Lymphocytes Absolute Auto 1300 /uL (1100-4500); Lymphocytes Percent Auto 24.7 % (25-40); Mean Corpuscular HGB Conc 34.3 % (30-36); Mean Corpuscular Hemoglobin 34.7 PG (26-34); Mean Corpuscular Volume 101.3 fL (80-100); Monocytes Absolute Auto 600 /uL (0-900); Monocytes Percent Auto 10.8 % (3-14); Neutrophils Absolute Auto 3100 /uL (1500-7000); Neutrophils Percent Auto 60.6 % (50-75); Platelet Count 190 X10^3/uL (150-400); Red Blood Cell Count 4.41 X10^6/uL (4.5-5.9); Red Cell Distribution Width 13.7 % (11.6-14.8); White Blood Cell Count 5.2 X10^3/uL (4.5-11.0)
[2024-03-08 12:15] LABS: Alanine Aminotransferase 26 IU/L (<50); Albumin 3.9 g/dL (3.5-5.0); Albumin Globulin Ratio 1.7 (1.0-2.8); Alkaline Phosphatase 130 U/L (38-126); Aspartate Aminotransferase 28 IU/L (17-59); BUN Creatinine Ratio 18.7 (6-22); Bilirubin Total 0.7 mg/dL (0.2-1.3); Blood Urea Nitrogen 14 mg/dL (9-20); Calcium 9.2 mg/dL (8.4-10.2); Carbon Dioxide 23 mmol/L (22-32); Chloride 106 mmol/L (98-107); Estimated Glomerular Filt Rate > 60 mL/min (>60); Globulin 2.3 g/dL (1.7-4.1); Glucose 279 mg/dL (80-110); HEMOLYSIS 17 (0-50); Potassium 4.6 mmol/L (3.4-5.1); Sodium 136 mmol/L (137-145); Total Protein 6.2 g/dL (6.3-8.2)
[2024-03-08 12:25] LABS: Digoxin < 0.4 ng/mL (0.8-2.0)
== END ==
LOC: LAB 11:06
PROVIDERS: Family Provider Internal Medicine; PCP Internal Medicine; Referring Provider Internal Medicine; Visit Provider Internal Medicine
DX: I48.91 Unspecified atrial fibrillation (principal)
CPT/HCPCS: 36415; 80053; 80162; 85025

== ENCOUNTER 2024-04-22 11:30 | Emergency (ER) | payer MEDICARE, BC, SELFPAY ==
[2024-02-24 21:44] VITALS: BMI 27.2
[2024-04-22] VITALS (17 sets, daily range): BP systolic 99–130; BP diastolic 69–84; PULSE 70–149; RESP 15–43; O2SAT 92–96; BMI 29.2
--- NOTE | 2024-04-22 11:51 | DI.RAD.S_ITS ---
PROCEDURE: XR CHEST 1V INDICATIONS: chest pain TECHNIQUE: One view of the chest was acquired. COMPARISON: [facility], CR, XR CHEST 1V, 03/04/2024, 16:56. FINDINGS: Surgical changes and devices: None. Lungs and pleura: Lungs are clear. No pleural effusions or pneumothorax. Mediastinum: Mediastinal contours appear normal. Heart size is normal. Bones and chest wall: No suspicious bony lesions. Overlying soft tissues appear unremarkable. IMPRESSION: No acute cardiopulmonary abnormality is seen. Approved by: Essie Conti M.D.,Ph.D. on 04/22/2024 at 13:04
--- NOTE | 2024-04-22 11:55 | EKG_ITS ---
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
[2024-04-22 12:08] LABS: Add Manual Diff / Slide Review NO; Basophils Absolute Auto 0 /uL (0-100); Basophils Percent Auto 0.8 % (0-2); Eosinophils Absolute Auto 200 /uL (0-450); Eosinophils Percent Auto 3.4 % (2-4); Hemoglobin 15.3 g/dL (13.5-17.5); Lymphocytes Absolute Auto 1500 /uL (1100-4500); Lymphocytes Percent Auto 24.9 % (25-40); Mean Corpuscular HGB Conc 34.7 % (30-36); Mean Corpuscular Hemoglobin 35.6 PG (26-34); Mean Corpuscular Volume 102.7 fL (80-100); Monocytes Absolute Auto 600 /uL (0-900); Monocytes Percent Auto 9.7 % (3-14); Neutrophils Absolute Auto 3600 /uL (1500-7000); Neutrophils Percent Auto 61.2 % (50-75); Platelet Count 158 X10^3/uL (150-400); Red Blood Cell Count 4.29 X10^6/uL (4.5-5.9); Red Cell Distribution Width 14.6 % (11.6-14.8); White Blood Cell Count 5.9 X10^3/uL (4.5-11.0)
[2024-04-22 12:13] LABS: Alanine Aminotransferase 24 IU/L (<50); Albumin 4.1 g/dL (3.5-5.0); Albumin Globulin Ratio 1.5 (1.0-2.8); Alkaline Phosphatase 105 U/L (38-126); Aspartate Aminotransferase 33 IU/L (17-59); BUN Creatinine Ratio 19.2 (6-22); Blood Urea Nitrogen 15 mg/dL (9-20); Calcium 8.9 mg/dL (8.4-10.2); Carbon Dioxide 21 mmol/L (22-32); Chloride 109 mmol/L (98-107); Creatine Kinase 98 U/L (55-170); Estimated Glomerular Filt Rate > 60 mL/min (>60); Globulin 2.7 g/dL (1.7-4.1); Glucose 218 mg/dL (80-110); HEMOLYSIS < 15 (0-50); Lipase 44 U/L (23-300); Potassium 4.1 mmol/L (3.4-5.1); Sodium 137 mmol/L (137-145); Total Protein 6.8 g/dL (6.3-8.2)
[2024-04-22 12:24] LABS: Troponin I < 0.012 ng/mL (0.01-0.034)
[2024-04-22] MEDS: ASPIRIN 81 MG CHEW TAB 324 MG PO (12:38)
[2024-04-22 12:39] LABS: Digoxin < 0.4 ng/mL (0.8-2.0)
[2024-04-22] MEDS: dilTIAZem 25 MG/5 ML SDV 10 MG IV (12:39)
[2024-04-22 12:44] LABS: NT-proBNP (BNP-Adult 18+) 1640 pg/mL (<450)
--- NOTE | 2024-04-22 13:38 | PC.NURSE ---
Addendum entered by Leora Rojas R.N. 04/22/24 13:44: the pt states that the pain has improved from when he first got here Original Note: pain/ discomfort in his chest feels like slugs fighting the patient states
--- NOTE | 2024-04-22 14:18 | ED_ITS ---
HPI - Chest Pain General Chief Complaint: Chest Pain Stated Complaint: AFIB Time Seen by Provider: 04/22/24 12:18 Source: patient Mode of arrival: Ambulatory Limitations: no limitations History of Present Illness HPI narrative: Patient is a 73-year-old male history of atrial fibrillation on Eliquis and digoxin presenting today with chest pain and elevated heart rate. He started taking Eliquis February 27 for persistent atrial fibrillation. He reports that the last 2 days he has not taken his digoxin metoprolol. He does not like how they are making him feel. Presents today with AFib with RVR. According to records he is has primary care provider on 04/06/2024 He reports that he is feeling dizzy lightheaded he stopped taking metoprolol and Eliquis in the mornings. He continues taking his glipizide in the morning and at night as well as digoxin in the morning only time. He presents today with AFib with RVR heart rate in the 150's Related Data Previous Rx's Medication Instructions Recorded blood sugar diagnostic (Blood #100 ea 04/03/21 Glucose Test strips) blood-glucose meter #1 ea 04/03/21 lancets #100 ea 04/03/21 Disabled Parking #1 ea 03/17/23 digoxin 250 mcg (0.25 mg) tablet 250 mcg PO DAILY #30 tabs 02/28/24 glipizide 10 mg tablet 10 mg PO BID #180 tabs 02/28/24 apixaban 5 mg tablet 5 mg PO QPM #60 tabs 04/06/24 metoprolol succinate 25 mg 25 mg PO QPM #60 tabs 04/06/24 tablet,extended release 24 hr Allergies Allergy/AdvReac Type Severity Reaction Status Date / Time metformin AdvReac Severe I had all Verified 04/06/24 11:35 the side effects lorazepam AdvReac Intermediate Headache Verified 04/06/24 11:35 Patient History Medical History History of COVID-19 (~2020) PTSD (post-traumatic stress disorder) COPD (chronic obstructive pulmonary disease) History of cardioversion Paroxysmal atrial fibrillation Unspecified asthma (06/08/11) Esophageal dysmotility Hyperlipidemia Hypothyroidism Type 2 diabetes mellitus without complication (11/16/17) Essential hypertension (11/16/17) 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/17) Atrial fibrillation (03/12/14) Chronic cholecystitis Surgical History H/O vasectomy History of arthroscopy of right shoulder Hx of shoulder surgery Hx of eye surgery Hx of bilateral cataract extraction Hx of arthroscopy of left knee Hx of arthroscopy of right knee Hx of fusion of cervical spine (2018) History of carpal tunnel repair Status post hernia repair Status post cholecystectomy History of knee replacement Family History Mother Hypertension Gallstones Father Hypertension Cancer Grandmother Hypertension Heart disease Cancer Social History marital status: number of children: 1 household members: none lives independently: Yes caregiver/support person: No housing: house pets and animals: No education level: college occupational status: other current occupational exposures/hazards: No 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: None leisure activities: fishing and other Smoking Status: Never smoker Tobacco: How many years used: 0 quit status: quit date established second hand exposure: Yes alcohol intake: current substance use type: does not use eating out: 1-3 times/week Type(s) of exercise: other and normal ROM and activity Smoking Status: Never smoker alcohol intake frequency: holidays/special occasions only Substance Use Type: does not use Exam Initial Vital Signs Initial Vital Signs: Vital Signs Pulse Rate 70 04/22/24 11:47 Respiratory Rate 16 04/22/24 11:47 Blood Pressure 130/84 04/22/24 11:47 Pulse Oximetry 95 04/22/24 11:47 Oxygen Delivery Method Room Air 04/22/24 11:47 GENERAL: Patient 73-year-old male and in no acute distress. HEENT: Head atraumatic,EOMI, pupils reactive, face symmetric, moist mucous membranes CARDIOVASCULAR: Tachycardic irregularly irregular RESPIRATORY: Breath sounds equal bilaterally, no wheezes rales or rhonchi. ABDOMEN: Soft, nontender. Normoactive bowel sounds all 4 quadrants. No guarding or rebound. EXTREMITIES: Normal range of motion, no clubbing or edema. Neurovascularly intact NEUROLOGICAL: Alert and oriented x4.Normal gait and speech. SKIN: Warm, dry, no laceration, no petechiae, no rashes or lesions. Course Orders Ordered: ED Orders 04/22/24 11:50 BNP [NT-proBNP (BNP-Adult 18+)] Stat Complete Blood Count AUTO DIFF Stat Comprehensive Metabolic Panel Stat DIG [Digoxin] Stat Lipase Stat Troponin & CK Cardiac Panel Stat 04/22/24 11:51 XR chest 1V Stat EKG-12 Lead Stat Discontinued Medications Aspirin (Aspirin 81 Mg Chew Tab) 324 mg PO NOW ONE Stop: 04/22/24 11:52 Last Admin: 04/22/24 12:38 Dose: 324 mg Documented By: FROY Digoxin (Digoxin 0.125 Mg Tablet) 0.125 mg PO NOW ONE Stop: 04/22/24 15:13 Last Admin: 04/22/24 15:31 Dose: 0.125 mg Documented By: FROY Diltiazem HCl (Diltiazem 25 Mg/5 Ml Sdv) 10 mg IV NOW ONE Stop: 04/22/24 12:19 Last Admin: 04/22/24 12:39 Dose: 10 mg Documented By: FROY Metoprolol Succinate (Metoprolol Er 25 Mg Tablet) 25 mg PO NOW ONE Stop: 04/22/24 15:13 Last Admin: 04/22/24 15:31 Dose: 25 mg Documented By: FROY Metoprolol Tartrate (Metoprolol Tartrate 5 Mg/5 Ml Inj) 5 mg IV NOW ONE Stop: 04/22/24 15:45 Last Admin: 04/22/24 15:55 Dose: 5 mg Documented By: MAXIMO Vital Signs Vital signs: Vital Signs - 8 hr 04/22/24 11:47 04/22/24 12:15 04/22/24 12:15 Pulse Rate 70 149 H Respiratory Rate 16 15 Blood Pressure 130/84 110/80 Pulse Oximetry 95 95 Oxygen Delivery Method Room Air 04/22/24 12:30 04/22/24 12:30 04/22/24 12:39 Pulse Rate 143 H 149 H Respiratory Rate 22 Blood Pressure 99/83 117/82 Pulse Oximetry 93 Oxygen Delivery Method 04/22/24 12:40 04/22/24 12:40 04/22/24 12:59 Pulse Rate 147 H 121 H Respiratory Rate 43 H Blood Pressure 117/82 Pulse Oximetry 94 96 Oxygen Delivery Method 04/22/24 13:00 04/22/24 13:00 04/22/24 13:30 Pulse Rate 118 H 102 H Respiratory Rate 20 19 Blood Pressure 113/84 Pulse Oximetry 94 93 Oxygen Delivery Method 04/22/24 14:00 04/22/24 14:00 04/22/24 14:30 Pulse Rate 96 H 102 H Respiratory Rate 18 19 Blood Pressure 108/75 Pulse Oximetry 95 94 Oxygen Delivery Method 04/22/24 14:30 04/22/24 15:00 04/22/24 15:00 Pulse Rate 109 H Respiratory Rate 20 Blood Pressure 123/73 107/83 Pulse Oximetry 94 Oxygen Delivery Method 04/22/24 15:30 04/22/24 15:30 04/22/24 15:31 Pulse Rate 134 H 145 H Respiratory Rate 28 H Blood Pressure 130/80 130/80 Pulse Oximetry 95 Oxygen Delivery Method 04/22/24 15:31 04/22/24 16:00 04/22/24 16:01 Pulse Rate 145 H 96 H Respiratory Rate 19 Blood Pressure 130/80 108/69 Pulse Oximetry 93 Oxygen Delivery Method 04/22/24 16:01 04/22/24 16:32 04/22/24 16:40 Pulse Rate 98 H 92 H 96 H Respiratory Rate 22 18 Blood Pressure 126/82 112/69 Pulse Oximetry 92 96 Oxygen Delivery Method Room Air MDM - Chest Pain Lab Data 04/22/24 11:50 04/22/24 11:50 Labs: Lab Results 04/22/24 Range/Units 11:50 WBC 5.9 (4.5-11.0) X10^3/uL RBC 4.29 L (4.5-5.9) X10^6/uL Hgb 15.3 (13.5-17.5) g/dL Hct 44.0 (41-53) % MCV 102.7 H (80-100) fL MCH 35.6 H (26-34) PG MCHC 34.7 (30-36) % RDW 14.6 (11.6-14.8) % Plt Count 158 (150-400) X10^3/uL Neut % (Auto) 61.2 (50-75) % Lymph % (Auto) 24.9 L (25-40) % Johnston % (Auto) 9.7 (3-14) % Eos % (Auto) 3.4 (2-4) % Baso % (Auto) 0.8 (0-2) % Neut # (Auto) 3600 (1865-6986) /uL Lymph # (Auto) 1500 (1076-5986) /uL Johnston # (Auto) 600 (0-900) /uL Eos # (Auto) 200 (0-450) /uL Baso # (Auto) 0 (0-100) /uL Sodium 137 (137-145) mmol/L Potassium 4.1 (3.4-5.1) mmol/L Chloride 109 H (98-107) mmol/L Carbon Dioxide 21 L (22-32) mmol/L BUN 15 (9-20) mg/dL Creatinine 0.78 (0.66-1.25) mg/dL Estimated GFR > 60 (>60) mL/min BUN/Creatinine Ratio 19.2 (6-22) Glucose 218 H (80-110) mg/dL Calcium 8.9 (8.4-10.2) mg/dL Total Bilirubin 1.0 (0.2-1.3) mg/dL AST 33 (17-59) IU/L ALT 24 (<50) IU/L Alkaline Phosphatase 105 (38-126) U/L Total Creatine Kinase 98 (55-170) U/L Troponin I < 0.012 (0.01-0.034) ng/mL NT-Pro-B Natriuret Pep 1640 H (<450) pg/mL Total Protein 6.8 (6.3-8.2) g/dL Albumin 4.1 (3.5-5.0) g/dL Globulin 2.7 (1.7-4.1) g/dL Albumin/Globulin Ratio 1.5 (1.0-2.8) Lipase 44 (23-300) U/L Digoxin < 0.4 L (0.8-2.0) ng/mL Imaging Data Chest x-ray: Radiologist's Impression: PROCEDURE: XR CHEST 1V INDICATIONS: chest pain TECHNIQUE: One view of the chest was acquired. COMPARISON: [facility], , XR CHEST 1V, 03/04/2024, 16:56. FINDINGS: Surgical changes and devices: None. Lungs and pleura: Lungs are clear. No pleural effusions or pneumothorax. Mediastinum: Mediastinal contours appear normal. Heart size is normal. Bones and chest wall: No suspicious bony lesions. Overlying soft tissues appear unremarkable. IMPRESSION: No acute cardiopulmonary abnormality is seen. Approved by: Essie Conti M.D.,Ph.D. on 04/22/2024 at 13:04 ECG Data Attestation: I personally reviewed and interpreted this ECG as follows: Prior ECG tracings: available for review Interpretation: Atrial fibrillation rate 152 no ischemic changes similar to previous EKGs MDM Narrative Medical decision making narrative: Patient 73-year-old male history of atrial fibrillation noncompliant with his medications including Eliquis making him not a candidate for cardioversion. He reports that he is having side effects from his medication he no longer wants to take him. He actually has an appointment with Cardiology Dr. Verma next week. Blood work has been reviewed no anemia hemoglobin 15.3 hematocrit 44.0, PT 15.2 INR 1.3, sodium 137, potassium 4.1, chloride 109, carbon dioxide 21, BUN 15, creatinine 0.7, glucose 218, bilirubin 1.0 AST 33 ALT 24 alk-phos 105, troponin negative BNP 16 40 previously 2570, lipase 40 Chest x-ray has been reviewed without acute cardiopulmonary process EKG reviewed AFib with RVR Patient received 10 mg of diltiazem which did slow his heart rate down but he remained in AFib. Records have been reviewed he had an echocardiogram 02/24/2024 with an EF of 50- 55%. Patient's heart rate then again sped up he is given his home doses of medication here. Upon further review of his chart it is found that he has not taken his Eliquis since April 06 an intermittently takes his other medications. He has certainly not a candidate for any sort of cardioversion. Long discussion with patient about making sure he takes his Eliquis out for stroke. He understands his risks and the benefits and at this time he does not want to take his medication. Which report is okay and he understands the risk. He has a appointment with Cardiology next week. At this time no need for further evaluation. Discharge Plan Departure Patient Disposition: Home Clinical Impression: Atrial fibrillation with rapid ventricular response Instructions: DI for Atrial Fibrillation Activity Restrictions/Additional Instructions: *You have been diagnosed with atrial fibrillation *What to do: Atrial fibrillation put you at risk for stroke. Eliquis helps prevent stroke. Please talk with Cardiology about your other medications *Continue to take medications as directed *Follow up with your primary care provider in 2-3 days or call [phone] *Return to ER if you should have increasing heart rate dizziness lightheadedness can [or] any new, worsening or concerning symptoms Prescriptions: No Action (DME) blood-glucose meter Misc See Rx Instructions .ROUTE .MEDSUPPLY Qty: 1 0RF Rx Instructions: As directed (DME) Blood Glucose Test Strip See Rx Instructions .ROUTE .MEDSUPPLY Qty: 100 3RF Rx Instructions: Use to check 1-2x a day for blood sugar (DME) lancets Misc See Rx Instructions .ROUTE .MEDSUPPLY Qty: 100 0RF Rx Instructions: Use to check blood sugars 1-2x a day (DME) Disabled Parking See Rx Instructions .ROUTE .MEDSUPPLY Qty: 1 0RF Rx Instructions: Patient qualifies for disabled parking as per the attached form. metoprolol succinate 25 mg tablet extended release 24 hr 25 mg PO QPM Qty: 60 3RF apixaban 5 mg tablet 5 mg PO QPM Qty: 60 3RF digoxin 250 mcg (0.25 mg) tablet 250 mcg PO DAILY Qty: 30 3RF glipizide 10 mg tablet 10 mg PO BID Qty: 180 3RF Referrals: Tripp Spears MD [Primary Care Provider] - Stand Alone Forms: Patient Portal/API
[2024-04-22] MEDS: METOPROLOL ER 25 MG TABLET PO (15:31)
[2024-04-22] MEDS: DIGOXIN 0.125 MG TABLET PO (15:31)
--- NOTE | 2024-04-22 15:39 | PC.NURSE ---
pt made this RN aware that they dont want to be here for much longer [id number]
[2024-04-22] MEDS: METOPROLOL TARTRATE 5 MG/5 ML INJ IV (15:55)
== END 2024-04-22 16:35 | disposition home or self-care (01) ==
PROVIDERS: Emergency Provider Emergency Medicine; Family Provider Internal Medicine; PCP Internal Medicine
DX: I48.20 Chronic atrial fibrillation, unspecified (principal); Z79.01 Long term (current) use of anticoagulants
CPT/HCPCS: 36415; 71045; 80053; 80162; 82550; 83690; 83880; 84484; 85025; 93005; 96374; 96375; 99284

== ENCOUNTER 2024-05-02 13:23 | Emergency (ER) | payer MEDICARE, BC, SELFPAY ==
[2024-02-24 21:44] VITALS: BMI 27.2
[2024-05-02 13:25] VITALS: BP 130/77; PULSE 87; RESP 20; TEMP 37; O2SAT 96; BMI 28.7
[2024-05-02 13:29] VITALS: PULSE 90; RESP 24; O2SAT 95
[2024-05-02 13:30] VITALS: BP 130/77; PULSE 87; RESP 19; O2SAT 95
--- NOTE | 2024-05-02 13:36 | EKG_ITS ---
[facility] [address] [place] [id number] Test Date: 2024-05-02 Pat Name: Joel Moreland Department: [facility] Room: Gender: Male Database Design Analyst: CASANDRA : 1950 Requested By: Order Number: [id number] Reading MD: Luis Miguel Keating Measurements Intervals Calvin Rate: 85 P: 32 SC: 170 QRS: 13 QRSD: 92 T: 34 QT: 372 QTc: 442 Interpretive Statements Normal sinus rhythm Electronically Signed On 05-02-2024 15:06:39 PDT by Luis Miguel Keating
--- NOTE | 2024-05-02 13:44 | ED.ARRPALP ---
HPI - Arrhythmia/Palpitations General Chief Complaint: Arrhythmia/Palpitations Stated Complaint: had cardioversion t-1 think it didn't work Time Seen by Provider: 05/02/24 13:37 Source: patient Mode of arrival: Family Vehicle History of Present Illness HPI narrative: Patient is a 73-year-old male. Underwent a BANDAR with subsequent cardioversion yesterday by Cardiology. He states the procedure went well. He was here because he was working out in his yard today he had 2 episodes of ?twinges? in his chest. They lasted seconds. There were approximately 30 minutes apart. He also describes some chest pressure. The chest pressure still present. No shortness of breath. No lightheadedness. He was yet to order picker/assembler his medicines that were prescribed yesterday. Related Data Home Medications Medication Instructions Recorded Confirmed cetirizine 10 mg tablet (All Day 10 mg PO DAILY PRN 04/23/24 04/23/24 Allergy (cetirizine)) Previous Rx's Medication Instructions Recorded blood sugar diagnostic (Blood #100 ea 04/03/21 Glucose Test strips) blood-glucose meter #1 ea 04/03/21 lancets #100 ea 04/03/21 Disabled Parking #1 ea 03/17/23 digoxin 250 mcg (0.25 mg) tablet 250 mcg PO DAILY #30 tabs 02/28/24 glipizide 10 mg tablet 10 mg PO BID #180 tabs 02/28/24 apixaban 5 mg tablet 5 mg PO QPM #60 tabs 04/06/24 metoprolol succinate 25 mg 25 mg PO QPM #60 tabs 04/06/24 tablet,extended release 24 hr Allergies Allergy/AdvReac Type Severity Reaction Status Date / Time metformin AdvReac Severe I had all Verified 04/23/24 11:07 the side effects lorazepam AdvReac Intermediate Headache Verified 04/23/24 11:07 Review of Systems Review of Systems ROS Unobtainable: All systems reviewed & are unremarkable except as noted in HPI and below Patient History Medical History History of COVID-19 (~2020) PTSD (post-traumatic stress disorder) COPD (chronic obstructive pulmonary disease) History of cardioversion Paroxysmal atrial fibrillation Unspecified asthma (06/08/11) Esophageal dysmotility Hyperlipidemia Hypothyroidism Type 2 diabetes mellitus without complication (11/16/17) Essential hypertension (11/16/17) 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/17) Atrial fibrillation (03/12/14) Chronic cholecystitis Surgical History H/O vasectomy History of arthroscopy of right shoulder Hx of shoulder surgery Hx of eye surgery Hx of bilateral cataract extraction Hx of arthroscopy of left knee Hx of arthroscopy of right knee Hx of fusion of cervical spine (2018) History of carpal tunnel repair Status post hernia repair Status post cholecystectomy History of knee replacement Family History Mother Hypertension Gallstones Father Hypertension Cancer Grandmother Hypertension Heart disease Cancer Social History marital status: number of children: 1 household members: none lives independently: Yes caregiver/support person: No housing: house pets and animals: No education level: college occupational status: other current occupational exposures/hazards: No 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: None leisure activities: fishing and other Smoking Status: Never smoker Tobacco: How many years used: 0 quit status: quit date established second hand exposure: Yes alcohol intake: current substance use type: does not use eating out: 1-3 times/week Type(s) of exercise: other and normal ROM and activity Smoking Status: Never smoker alcohol intake frequency: holidays/special occasions only Substance Use Type: does not use Exam Initial Vital Signs Initial Vital Signs: Vital Signs Temperature 98.6 F 05/02/24 13:25 Pulse Rate 87 05/02/24 13:25 Respiratory Rate 20 05/02/24 13:25 Blood Pressure 130/77 05/02/24 13:25 Pulse Oximetry 96 05/02/24 13:25 Oxygen Delivery Method Room Air 05/02/24 13:25 HENMT Head: normal to inspection and normocephalic Resp Effort & Inspection: normal respiratory effort Auscultation: clear to auscultation bilaterally Cardio Rate: regular rate Rhythm: regular rhythm GI Inspection: normal to inspection and non-distended Skin General: no rashes or lesions noted Neuro General: patient alert, patient awake and moves all extremities Course Orders Ordered: ED Orders 05/02/24 13:25 EKG-12 Lead Stat 05/02/24 13:45 XR chest 1V Stat 05/02/24 14:25 Complete Blood Count AUTO DIFF Stat Comprehensive Metabolic Panel Stat Lipase Stat Troponin & CK Cardiac Panel Stat Vital Signs Vital signs: Vital Signs - 8 hr 05/02/24 13:25 05/02/24 13:29 05/02/24 13:30 Temperature 98.6 F Pulse Rate 87 90 Respiratory Rate 20 24 Blood Pressure 130/77 130/77 Pulse Oximetry 96 95 Oxygen Delivery Method Room Air 05/02/24 13:30 05/02/24 14:00 05/02/24 14:00 Temperature Pulse Rate 87 80 Respiratory Rate 19 21 Blood Pressure 116/75 Pulse Oximetry 95 93 Oxygen Delivery Method 05/02/24 14:30 05/02/24 14:30 Temperature Pulse Rate 78 Respiratory Rate 19 Blood Pressure 116/79 Pulse Oximetry 92 Oxygen Delivery Method MDM - Arrhythmia/Palpitations Lab Data 05/02/24 14:25 05/02/24 14:25 Labs: Lab Results 05/02/24 Range/Units 14:25 WBC 5.9 (4.5-11.0) X10^3/uL RBC 4.28 L (4.5-5.9) X10^6/uL Hgb 15.2 (13.5-17.5) g/dL Hct 44.1 (41-53) % MCV 103.0 H (80-100) fL MCH 35.4 H (26-34) PG MCHC 34.4 (30-36) % RDW 14.5 (11.6-14.8) % Plt Count 171 (150-400) X10^3/uL Neut % (Auto) 65.0 (50-75) % Lymph % (Auto) 19.6 L (25-40) % [place] % (Auto) 11.0 (3-14) % Eos % (Auto) 3.8 (2-4) % Baso % (Auto) 0.6 (0-2) % Neut # (Auto) 3900 (0439-6570) /uL Lymph # (Auto) 1200 (3226-8993) /uL [place] # (Auto) 700 (0-900) /uL Eos # (Auto) 200 (0-450) /uL Baso # (Auto) 0 (0-100) /uL Sodium 139 (137-145) mmol/L Potassium 3.9 (3.4-5.1) mmol/L Chloride 110 H (98-107) mmol/L Carbon Dioxide 24 (22-32) mmol/L BUN 16 (9-20) mg/dL Creatinine 0.79 (0.66-1.25) mg/dL Estimated GFR > 60 (>60) mL/min BUN/Creatinine Ratio 20.3 (6-22) Glucose 132 H (80-110) mg/dL Calcium 9.2 (8.4-10.2) mg/dL Total Bilirubin 0.9 (0.2-1.3) mg/dL AST 35 (17-59) IU/L ALT 28 (<50) IU/L Alkaline Phosphatase 90 (38-126) U/L Total Creatine Kinase 75 (55-170) U/L Troponin I < 0.012 (0.01-0.034) ng/mL Total Protein 6.8 (6.3-8.2) g/dL Albumin 4.1 (3.5-5.0) g/dL Globulin 2.7 (1.7-4.1) g/dL Albumin/Globulin Ratio 1.5 (1.0-2.8) Lipase 54 (23-300) U/L Imaging Data Chest x-ray: Radiologist's Impresson: PROCEDURE: XR CHEST 1V INDICATIONS: Chest pressure TECHNIQUE: One view of the chest was acquired. COMPARISON: [facility], , XR CHEST 1V, 04/22/2024, 12:18. [facility], , XR CHEST 1V, 03/04/2024, 16:56. FINDINGS: Surgical changes and devices: None. Lungs and pleura: Lungs are clear. No pleural effusions or pneumothorax. Mediastinum: Mediastinal contours appear normal. Heart size is normal. Bones and chest wall: No suspicious bony lesions. Overlying soft tissues appear unremarkable. IMPRESSION: No acute cardiopulmonary abnormality is seen. ECG Data Attestation: I personally reviewed and interpreted this ECG as follows: Interpretation: Sinus rhythm Ventricular rate 85 Normal axis Normal QRS Normal QTC No ST T wave changes MDM Narrative Medical decision making narrative: Patient has been in sinus rhythm since arrival here in the ER. Chest x-ray and labs unremarkable. Low suspicion that this is ACS. Suspect that he was having some esophageal discomfort because he just had a BANDAR yesterday with the cardioversion. Will have him continue to take all of his medications. Will discharge patient home with return precautions. Discharge Plan Departure Patient Disposition: Home Clinical Impression: Atypical chest pain Instructions: DI for Atypical Chest Pain Activity Restrictions/Additional Instructions: Continue to take all of your medications as directed. Follow all of the postprocedure instructions given to you by the singeing torch operator and keep all of your scheduled medical appointments. Return to the emergency department for new symptoms. Prescriptions: No Action (DME) blood-glucose meter Misc See Rx Instructions .ROUTE .MEDSUPPLY Qty: 1 0RF Rx Instructions: As directed (DME) Blood Glucose Test Strip See Rx Instructions .ROUTE .MEDSUPPLY Qty: 100 3RF Rx Instructions: Use to check 1-2x a day for blood sugar (DME) lancets Misc See Rx Instructions .ROUTE .MEDSUPPLY Qty: 100 0RF Rx Instructions: Use to check blood sugars 1-2x a day (DME) Disabled Parking See Rx Instructions .ROUTE .MEDSUPPLY Qty: 1 0RF Rx Instructions: Patient qualifies for disabled parking as per the attached form. metoprolol succinate 25 mg tablet extended release 24 hr 25 mg PO QPM Qty: 60 3RF apixaban 5 mg tablet 5 mg PO QPM Qty: 60 3RF cetirizine [All Day Allergy (cetirizine)] 10 mg tablet 10 mg PO DAILY PRN digoxin 250 mcg (0.25 mg) tablet 250 mcg PO DAILY Qty: 30 3RF glipizide 10 mg tablet 10 mg PO BID Qty: 180 3RF Referrals: Tripp Spears MD [Primary Care Provider] - Stand Alone Forms: Patient Portal/API
--- NOTE | 2024-05-02 13:45 | DI.RAD.S_ITS ---
PROCEDURE: XR CHEST 1V INDICATIONS: Chest pressure TECHNIQUE: One view of the chest was acquired. COMPARISON: [facility], CR, XR CHEST 1V, 04/22/2024, 12:18. [facility], CR, XR CHEST 1V, 03/04/2024, 16:56. FINDINGS: Surgical changes and devices: None. Lungs and pleura: Lungs are clear. No pleural effusions or pneumothorax. Mediastinum: Mediastinal contours appear normal. Heart size is normal. Bones and chest wall: No suspicious bony lesions. Overlying soft tissues appear unremarkable. IMPRESSION: No acute cardiopulmonary abnormality is seen. Dictated by: Matthew Harris M.D. on 05/02/2024 at 14:27 Approved by: Matthew Harris M.D. on 05/02/2024 at 14:27
[2024-05-02 14:00] VITALS: BP 116/75; PULSE 80; RESP 21; O2SAT 93
[2024-05-02 14:30] VITALS: BP 116/79; PULSE 78; RESP 19; O2SAT 92
[2024-05-02 14:41] LABS: Add Manual Diff / Slide Review NO; Basophils Absolute Auto 0 /uL (0-100); Basophils Percent Auto 0.6 % (0-2); Eosinophils Absolute Auto 200 /uL (0-450); Eosinophils Percent Auto 3.8 % (2-4); Hematocrit 44.1 % (41-53); Hemoglobin 15.2 g/dL (13.5-17.5); Lymphocytes Absolute Auto 1200 /uL (1100-4500); Lymphocytes Percent Auto 19.6 % (25-40); Mean Corpuscular HGB Conc 34.4 % (30-36); Mean Corpuscular Hemoglobin 35.4 PG (26-34); Monocytes Absolute Auto 700 /uL (0-900); Neutrophils Absolute Auto 3900 /uL (1500-7000); Platelet Count 171 X10^3/uL (150-400); Red Blood Cell Count 4.28 X10^6/uL (4.5-5.9); Red Cell Distribution Width 14.5 % (11.6-14.8); White Blood Cell Count 5.9 X10^3/uL (4.5-11.0)
[2024-05-02 14:57] LABS: Alanine Aminotransferase 28 IU/L (<50); Albumin 4.1 g/dL (3.5-5.0); Albumin Globulin Ratio 1.5 (1.0-2.8); Alkaline Phosphatase 90 U/L (38-126); Aspartate Aminotransferase 35 IU/L (17-59); BUN Creatinine Ratio 20.3 (6-22); Bilirubin Total 0.9 mg/dL (0.2-1.3); Blood Urea Nitrogen 16 mg/dL (9-20); Calcium 9.2 mg/dL (8.4-10.2); Carbon Dioxide 24 mmol/L (22-32); Chloride 110 mmol/L (98-107); Creatine Kinase 75 U/L (55-170); Estimated Glomerular Filt Rate > 60 mL/min (>60); Globulin 2.7 g/dL (1.7-4.1); Glucose 132 mg/dL (80-110); HEMOLYSIS 24 (0-50); Lipase 54 U/L (23-300); Potassium 3.9 mmol/L (3.4-5.1); Sodium 139 mmol/L (137-145); Total Protein 6.8 g/dL (6.3-8.2)
[2024-05-02 15:00] VITALS: BP 126/82; PULSE 75; RESP 19; O2SAT 91
[2024-05-02 15:09] LABS: Troponin I < 0.012 ng/mL (0.01-0.034)
== END 2024-05-02 15:34 | disposition home or self-care (01) ==
PROVIDERS: Emergency Provider Emergency Medicine; Family Provider Internal Medicine; PCP Internal Medicine
DX: R07.89 Other chest pain (principal)
CPT/HCPCS: 36415; 71045; 80053; 82550; 83690; 84484; 85025; 93005; 99283; 99284

== ENCOUNTER → 2024-07-27 14:33 | Outpatient (CLI) | payer MEDICARE, BC, SELFPAY ==
[2024-02-24 21:44] VITALS: BMI 27.2
[2024-07-27 15:07] LABS: Hemoglobin A1C% w Est Avg Glu 10.1 % (4.0-6.0)
[2024-07-27 15:17] LABS: BUN Creatinine Ratio 13.4 (6-22); Blood Urea Nitrogen 11 mg/dL (9-20); Calcium 9.6 mg/dL (8.4-10.2); Carbon Dioxide 20 mmol/L (22-32); Chloride 105 mmol/L (98-107); Estimated Glomerular Filt Rate > 60 mL/min (>60); Glucose 305 mg/dL (80-110); HEMOLYSIS < 15 (0-50); Potassium 4.3 mmol/L (3.4-5.1); Sodium 134 mmol/L (137-145)
== END ==
PROVIDERS: Family Provider Internal Medicine; PCP Internal Medicine; Referring Provider Internal Medicine; Visit Provider Internal Medicine
DX: E11.65 Type 2 diabetes mellitus with hyperglycemia (principal); I10 Essential (primary) hypertension
CPT/HCPCS: 36415; 80048; 83036

== ENCOUNTER → 2024-08-09 13:29 | Outpatient (CLI) | payer MEDICARE, BC, SELFPAY ==
[2024-02-24 21:44] VITALS: BMI 27.2
--- NOTE | 2024-08-09 13:31 | DI.ECHO.S_ITS ---
[facility] : : [address] : : [place] : : [id number] : : Phone: [phone] Echocardiogram Report + + :Name: AURY ANDREW Study Date: 08/09/2024 Height: 71 in : :[facility] ReadingLocation: Weight: 190 lb : : Gender: Male BSA: 2.1 m2 : :: 1950 Age: 74 yrs BP: 118/74 mmHg: :Reason For Study: HEART FAILURE, ATRIAL FIBRILLATION : :Ordering Physician: YOVANI COLLINS Performed By: Kumar Jorgensen : :Referring: YOVANI COLLINS : + + Interpretation Summary 1. The left ventricular contractility is borderline. Estimate ejection fraction is 50 to 55% with no segmental wall motion abnormalities. No LVH. Grade 1 diastolic dysfunction. 2. The right ventricular contractility is normal. 3. All cardiac chambers are of normal size. 4. Mild tricuspid regurgitation with estimated pulmonary systolic artery pressures of 31 mmHg. 5. No obvious intracardiac shunts. 6. No obvious intracardiac masses nor thrombi. 7. No hemodynamically significant pericardial effusion. 8. Low right-sided filling pressures. Conclusion: Low normal left ventricular systolic function with no significant valvular abnormalities. When compared with previous echocardiogram, no significant changes have occurred. Procedure: A two-dimensional transthoracic echocardiogram with color flow and Doppler was performed. The study quality was technically good. Comparison is made with the echocardiogram of 02/25/2024. The patient was in atrial fibrillation with heart rates between 65-96 bpm during the exam. Left Ventricle: The left ventricle is normal in size and wall thickness. There is no ventricular septal defect visualized. The ejection fraction is estimated to be 50-55%. Diastolic parameters suggest a relaxation abnormality of the left ventricle, consistent with probable normal filling pressures. Right Ventricle: The right ventricle is normal in size and function. Atria: The left atrial size is normal. Right atrial size is normal. There is no Doppler evidence for an atrial septal defect. Mitral Valve: The mitral valve is normal in structure and function. There is trace mitral regurgitation. Aortic Valve: The aortic valve is trileaflet. The aortic valve opens well. No aortic regurgitation is present. Tricuspid Valve: The tricuspid valve is normal in structure and function. There is mild tricuspid regurgitation. The right ventricular systolic pressure is estimated to be at least 31 mmHg based on an estimated right atrial pressure of 3 mm Hg. Pulmonic Valve: The pulmonic valve is normal in structure and function. There is trace pulmonic regurgitation. Great Vessels: The aortic root is normal size. The dimensions of the ascending aorta are normal. The pulmonary artery is normal size. The IVC is of normal diameter and collapses greater than 50% with a sniff. This suggests a low right atrial pressure of 3 mm Hg. Pericardium/ Pleura There is no pericardial effusion. There is no pleural effusion. MMode/2D Measurements & Calculations LVIDd: 4.8 cm LVOT diam: 2.5 cm LVIDs: 3.3 cm Ao root diam: 3.9 cm FS: 31.6 % asc Aorta Diam: 4.1 cm EPSS: 1.1 cm IVSd: 1.0 cm LVPWd: 1.0 cm LV flaherty. diameter/BSA (cm/m^2): 2.3 LV sys. diameter/BSA (cm/m^2): 1.6 LA A2 area: 18.8 cm2 RA long axis: 5.8 cm LA A4 area: 27.3 cm2 RA area: 17.9 cm2 LA length (vol): 6.2 cm RA vol: 47.1 ml LA vol: 70.0 ml RA : 22.8 ml/m2 LA vol index: 33.9 ml/m2 IVC diam: 1.2 cm RVD1 (basal): 3.9 cm RVD2 (mid): 3.5 cm TAPSE: 2.5 cm Doppler Measurements & Calculations Ao V2 max: 123.5 cm/sec LVOT Max Sterling: 97.9 cm/sec Ao V2 mean: 80.7 cm/sec LV V1 max P.8 mmHg Ao max P.1 mmHg LV V1 VTI: 19.5 cm Ao mean P.1 mmHg JEAN(I,D): 4.6 cm2 Ao V2 VTI: 20.0 cm JEAN(V,D): 3.7 cm2 sev ratio: 0.98 JEAN indexed to BSA (cm^2/m^2): 2.2 MV E max sterling: 50.7 cm/sec TR max sterling: 266.5 cm/sec MV A max sterling: 83.6 cm/sec TR max P.4 mmHg MV E/A: 0.61 PA V2 max: 73.1 cm/sec Med Peak E' Sterling: 4.2 cm/sec PA V2 mean: 53.3 cm/sec E/E' med: 12.1 PA mean P.2 mmHg Lat Peak E' Sterling: 7.6 cm/sec PA pr(Accel): 36.2 mmHg E/E' lat: 6.7 E/e' average: 9.4 MV dec time: 0.19 sec SV(LVOT): 92.2 ml Reading Physician:
--- NOTE | 2024-08-09 19:25 | DI.NM.S_ITS ---
DATE OF SERVICE: 08/09/2024 EXERCISE STRESS TEST INDICATION: Atrial fibrillation. CARDIAC STRESS TEST: The patient underwent exercise stress test under the supervision of an attending staff. He walked on Can protocol for 3 minutes and 17 seconds. Test was discontinued because of hip pain and fatigue. Resting blood pressure 128/84 and peak blood pressure 140/82 mmHg. KARSON positive 35%. 4.6 METS of workload. Resting rhythm was sinus with concave ST depression in inferolateral leads with possible dig effect up to 1 mm. During stress, patient has isolated PACs, atrial couplets, as well as some PVCs without any obvious AFib or ventricular tachycardia. Baseline inferolateral ST depression got more pronounced. The patient continued to have PVCs and PACs in recovery. The patient had moderate shortness of breath. No chest pain. Overall no sustained ventricular tachycardia or AFib seen. CONCLUSION: Exercise stress test is inconclusive for inducible ischemia due to baseline ST depression as stated above. Poor exercise tolerance. KARSON positive 35%. Moderate shortness of breath. No chest pain. Intermittent PACs and PVCs during stress and recovery without any obvious AFib. Correlate clinically. Repeat exercise stress test with imaging modality like exercise perfusion study for ischemic evaluation. Joel Moreland - TIERRA/ethan/JOSIAS doc#: [id number]/job#: [id number] dd: 08/09/2024 17:16:00 dt: 08/09/2024 19:17:00 DICTATING /COPIES TO: Will Anderson MD COPIES MNE: JOSE;
== END ==
PROVIDERS: Family Provider Internal Medicine; PCP Internal Medicine; Referring Provider Internal Medicine; Visit Provider Internal Medicine
DX: I50.22 Chronic systolic (congestive) heart failure (principal); I48.91 Unspecified atrial fibrillation; I07.1 Rheumatic tricuspid insufficiency
CPT/HCPCS: 93017; 93306

== ENCOUNTER 2024-08-11 11:24 | Emergency (ER) | payer MEDICARE, BC, SELFPAY ==
[2024-02-24 21:44] VITALS: BMI 27.2
[2024-08-11] VITALS (10 sets, daily range): BP systolic 118–152; BP diastolic 67–90; PULSE 61–89; RESP 16–25; TEMP 36.2; O2SAT 91–95; BMI 26.4
--- NOTE | 2024-08-11 11:39 | DI.RAD.S_ITS ---
PROCEDURE: XR CHEST 1V INDICATIONS: chest pain TECHNIQUE: One view of the chest was acquired. COMPARISON: [facility], CR, XR CHEST 1V, 04/22/2024, 12:18. [facility], CR, XR CHEST 1 VIEW, 05/01/2024, 12:38. [facility], CR, XR CHEST 1V, 05/02/2024, 14:08. FINDINGS: Surgical changes and devices: Cholecystectomy clips are seen. There is truncation of the right distal clavicle. Lungs and pleura: An incomplete inspiratory result is noted, causing a crowded appearance to the lung markings. No focal infiltrates are seen. No pneumothorax or significant pleural effusions are seen. Mediastinum: The cardiac contours are within normal limits. The aorta demonstrates calcification and tortuosity. Bones and chest wall: No suspicious bony lesions. Age-appropriate bony degenerative changes are seen. Overlying soft tissues appear unremarkable. IMPRESSION: Low lung volumes, without an acute abnormality seen by plain film. Postoperative and degenerative changes are seen. Dictated by: Warner Ross M.D. on 08/11/2024 at 11:51 Approved by: Warner Ross M.D. on 08/11/2024 at 11:52
--- NOTE | 2024-08-11 11:48 | EKG_ITS ---
[facility] [address] [place] [address] Test Date: 2024-08-11 Pat Name: Joel Moreland Department: [facility] Room: Gender: Male [employer]: JOSÉ : 1950 Requested By: Order Number: [id number] Reading MD: Tripp Spears MD Measurements Intervals [place] Rate: 64 P: 2 VA: 136 QRS: 10 QRSD: 90 T: 6 QT: 404 QTc: 416 Interpretive Statements Sinus rhythm with marked sinus arrhythmia Nonspecific ST abnormality Electronically Signed On 08-11-2024 17:36:45 PDT by Tripp Spears MD
[2024-08-11] MEDS: ASPIRIN 81 MG CHEW TAB 324 MG PO (12:00)
[2024-08-11 12:20] LABS: Add Manual Diff / Slide Review NO; Basophils Absolute Auto 0 /uL (0-100); Basophils Percent Auto 0.6 % (0-2); Eosinophils Absolute Auto 600 /uL (0-450); Eosinophils Percent Auto 11.2 % (2-4); Hemoglobin 16.1 g/dL (13.5-17.5); INR 1.1 (0.9-1.3); Lymphocytes Absolute Auto 600 /uL (1100-4500); Lymphocytes Percent Auto 12.2 % (25-40); Mean Corpuscular HGB Conc 34.9 % (30-36); Mean Corpuscular Hemoglobin 35.7 PG (26-34); Mean Corpuscular Volume 102.4 fL (80-100); Monocytes Absolute Auto 500 /uL (0-900); Monocytes Percent Auto 10.6 % (3-14); Neutrophils Absolute Auto 3300 /uL (1500-7000); Neutrophils Percent Auto 65.4 % (50-75); Platelet Count 150 X10^3/uL (150-400); Prothrombin Time 12.8 SECONDS (9.4-12.5); Red Cell Distribution Width 14.5 % (11.6-14.8)
[2024-08-11 12:23] LABS: PTT Partial Thromboplastin Tim 33 SECONDS (25.1-36.5)
[2024-08-11 12:27] LABS: Alanine Aminotransferase 186 IU/L (<50); Albumin 3.8 g/dL (3.5-5.0); Albumin Globulin Ratio 1.5 (1.0-2.8); Alkaline Phosphatase 281 U/L (38-126); Aspartate Aminotransferase 163 IU/L (17-59); BUN Creatinine Ratio 17.9 (6-22); Bilirubin Total 1.5 mg/dL (0.2-1.3); Blood Urea Nitrogen 14 mg/dL (9-20); Calcium 9.3 mg/dL (8.4-10.2); Carbon Dioxide 21 mmol/L (22-32); Chloride 104 mmol/L (98-107); Creatine Kinase 81 U/L (55-170); Estimated Glomerular Filt Rate > 60 mL/min (>60); Globulin 2.6 g/dL (1.7-4.1); Glucose 256 mg/dL (80-110); HEMOLYSIS 17 (0-50); Lipase 68 U/L (23-300); Magnesium 1.6 mg/dL (1.6-2.3); Potassium 4.1 mmol/L (3.4-5.1); Sodium 133 mmol/L (137-145); Total Protein 6.4 g/dL (6.3-8.2)
[2024-08-11 12:39] LABS: NT-proBNP (BNP-Adult 18+) 86 pg/mL (<450); Troponin I < 0.012 ng/mL (0.01-0.034)
--- NOTE | 2024-08-11 12:40 | ED.WEAKNESS ---
HPI - Weakness General Chief complaint: Weakness Stated complaint: Weak, Can't eat, AFIB Time Seen by Provider: 08/11/24 11:53 Source: patient Mode of arrival: Family Vehicle History of Present Illness HPI Narrative: 74-year-old male with history of atrial fibrillation, complains of generalized weakness for the last couple of days, no fevers or chills. No nausea or vomiting or diarrhea. Eating less, drinking less. No change in medications. Taking chronic blood thinner medications. No black or red stools. No bloody urine. No abdominal discomfort. No chest discomfort. No focal weakness or numbness to face arm or leg Related Data Home Medications Medication Instructions Recorded Confirmed cetirizine 10 mg tablet (All Day 10 mg PO DAILY PRN 04/23/24 07/30/24 Allergy (cetirizine)) Previous Rx's Medication Instructions Recorded blood sugar diagnostic (Blood #100 ea 04/03/21 Glucose Test strips) blood-glucose meter #1 ea 04/03/21 lancets #100 ea 04/03/21 Disabled Parking #1 ea 03/17/23 digoxin 250 mcg (0.25 mg) tablet 250 mcg PO DAILY #30 tabs 02/28/24 glipizide 10 mg tablet 10 mg PO BID #180 tabs 02/28/24 apixaban 5 mg tablet 5 mg PO QPM #60 tabs 04/06/24 metoprolol succinate 25 mg 25 mg PO QPM #60 tabs 04/06/24 tablet,extended release 24 hr Allergies Allergy/AdvReac Type Severity Reaction Status Date / Time metformin AdvReac Severe I had all Verified 07/30/24 11:00 the side effects lorazepam AdvReac Intermediate Headache Verified 07/30/24 11:00 Review of Systems Review of Systems Narrative: See HPI Patient History Medical History (Updated 08/11/24 @ 15:00 by Panda Zhang MD) Atrial fibrillation with rapid ventricular response History of COVID-19 (~2020) PTSD (post-traumatic stress disorder) COPD (chronic obstructive pulmonary disease) History of cardioversion Paroxysmal atrial fibrillation Unspecified asthma (06/08/11) Esophageal dysmotility Hyperlipidemia Hypothyroidism Type 2 diabetes mellitus without complication (11/16/17) Essential hypertension (11/16/17) 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/17) Atrial fibrillation (03/12/14) Chronic cholecystitis Surgical History H/O vasectomy History of arthroscopy of right shoulder Hx of shoulder surgery Hx of eye surgery Hx of bilateral cataract extraction Hx of arthroscopy of left knee Hx of arthroscopy of right knee Hx of fusion of cervical spine (2018) History of carpal tunnel repair Status post hernia repair Status post cholecystectomy History of knee replacement Family History Mother Hypertension Gallstones Father Hypertension Cancer Grandmother Hypertension Heart disease Cancer Social History marital status: number of children: 1 household members: none lives independently: Yes caregiver/support person: No housing: house pets and animals: No education level: college occupational status: other current occupational exposures/hazards: No 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 HEAD: Atraumatic. Normocephalic. EYES: Pupils equal round and reactive. Extraocular motions intact. No scleral icterus. No injection or drainage. ENT: Nose without bleeding, purulent drainage. Throat without erythema, tonsillar hypertrophy or exudate. Airway patent. NECK: Trachea midline. Non tender CARDIOVASCULAR: Regular rate and rhythm without murmurs, gallops, or rubs. RESPIRATORY: Clear to auscultation. Breath sounds equal bilaterally. No wheezes, rales, or rhonchi. GASTROINTESTINAL: Abdomen soft, non-tender, nondistended. EXTREMITIES: No edema or joint tenderness. BACK: Nontender without deformity or crepitance. No flank tenderness. NEURO: AOx3. Motor functions grossly nonfocal SKIN: No rash or erythema of visible areas Initial Vital Signs Initial Vital Signs: Vital Signs Temperature 97.1 F L 08/11/24 11:36 Pulse Rate 83 08/11/24 11:36 Respiratory Rate 19 08/11/24 11:36 Blood Pressure 152/90 H 08/11/24 11:36 Pulse Oximetry 95 08/11/24 11:36 Oxygen Delivery Method Room Air 08/11/24 11:36 Course Orders Ordered: Discontinued Medications Aspirin (Aspirin 81 Mg Chew Tab) 324 mg PO NOW ONE Stop: 08/11/24 11:40 Last Admin: 08/11/24 12:00 Dose: 324 mg Documented By: RB Vital Signs Vital signs: Vital Signs - 8 hr 08/11/24 11:36 08/11/24 11:43 08/11/24 12:00 Temperature 97.1 F L Pulse Rate 83 86 68 Respiratory Rate 19 24 Blood Pressure 152/90 H Pulse Oximetry 95 92 91 Oxygen Delivery Method Room Air 08/11/24 12:06 08/11/24 12:06 08/11/24 12:30 Temperature Pulse Rate 89 69 Respiratory Rate Blood Pressure 123/84 Pulse Oximetry 93 Oxygen Delivery Method 08/11/24 13:00 08/11/24 13:00 08/11/24 13:30 Temperature Pulse Rate 65 61 Respiratory Rate 21 17 Blood Pressure 118/69 Pulse Oximetry 91 92 Oxygen Delivery Method 08/11/24 13:30 08/11/24 14:00 Temperature Pulse Rate 65 Respiratory Rate 25 H Blood Pressure 123/68 Pulse Oximetry 91 Oxygen Delivery Method MDM - Weakness Lab Data Attestation: I reviewed the patient's lab results. Lab results narrative: CBC normal, glucose 256 but no DKA findings BMP, LFTs normal, UA neg. Trop neg 08/11/24 11:47 08/11/24 11:47 Labs: Lab Results 08/11/24 08/11/24 08/11/24 Range/Units 11:47 12:30 13:42 WBC 5.0 (4.5-11.0) X10^3/uL RBC 4.50 (4.5-5.9) X10^6/uL Hgb 16.1 (13.5-17.5) g/dL Hct 46.0 (41-53) % MCV 102.4 H (80-100) fL MCH 35.7 H (26-34) PG MCHC 34.9 (30-36) % RDW 14.5 (11.6-14.8) % Plt Count 150 (150-400) X10^3/uL Neut % (Auto) 65.4 (50-75) % Lymph % (Auto) 12.2 L (25-40) % Simpson % (Auto) 10.6 (3-14) % Eos % (Auto) 11.2 H (2-4) % Baso % (Auto) 0.6 (0-2) % Neut # (Auto) 3300 (1544-8832) /uL Lymph # (Auto) 600 L (5968-3666) /uL Simpson # (Auto) 500 (0-900) /uL Eos # (Auto) 600 H (0-450) /uL Baso # (Auto) 0 (0-100) /uL PT 12.8 H (9.4-12.5) SECONDS INR 1.1 (0.9-1.3) APTT 33 (25.1-36.5) SECONDS Sodium 133 L (137-145) mmol/L Potassium 4.1 (3.4-5.1) mmol/L Chloride 104 (98-107) mmol/L Carbon Dioxide 21 L (22-32) mmol/L BUN 14 (9-20) mg/dL Creatinine 0.78 (0.66-1.25) mg/dL Estimated GFR > 60 (>60) mL/min BUN/Creatinine Ratio 17.9 (6-22) Glucose 256 H (80-110) mg/dL Calcium 9.3 (8.4-10.2) mg/dL Magnesium 1.6 (1.6-2.3) mg/dL Total Bilirubin 1.5 H (0.2-1.3) mg/dL AST 163 H (17-59) IU/L ALT 186 H (<50) IU/L Alkaline Phosphatase 281 H (38-126) U/L Total Creatine Kinase 81 (55-170) U/L Troponin I < 0.012 < 0.012 (0.01-0.034) ng/mL NT-Pro-B Natriuret Pep 86 (<450) pg/mL Total Protein 6.4 (6.3-8.2) g/dL Albumin 3.8 (3.5-5.0) g/dL Globulin 2.6 (1.7-4.1) g/dL Albumin/Globulin Ratio 1.5 (1.0-2.8) Lipase 68 (23-300) U/L Urine Color Dark yellow Urine Appearance Clear Urine pH 5.5 (4.5-8.0) Ur Specific Flora >=1.030 H (1.000-1.035) Urine Protein 1+ H (Negative) Urine Glucose (UA) 2+ H (Negative) g/dL Urine Ketones 1+ H (NEGATIVE) Urine Occult Blood Negative (Negative) Urine Nitrate Negative (Negative) Urine Bilirubin 1+ H (NEGATIVE) Ur Bilirubin Confirm Positive H (Negative) Urine Urobilinogen 2.0 H (0.2) E.U./dL Ur Leukocyte Esterase Negative (NEGATIVE) Urine RBC 0-1/hpf (0-5/HPF) Urine WBC 0-1/hpf (0-5/HPF) Ur Squamous Epith Cells 0-1 /hpf (0-5/HPF) Urine Bacteria Occasional (0-1) (None) Urine Mucus 3+ H (Negative) Ur Culture Indicated? Cult not indicated Vol Urine Centrifuged 10ml (spun) Imaging Data Chest x-ray: Radiologist Impression: Close Chest X-Ray (Signed) Warner Ross - 08/11/24 Launch?[place] [address] XRay Report Signed Patient: Joel Moreland MR#: [id number] : 1950 Acct:[id number] Age/Sex: 74 / M Date of Service: 08/11/24 Loc: ED Accession Number: [id number] Procedure: XR chest 1V Ordering Provider: Panda Zhang MD PROCEDURE: XR CHEST 1V INDICATIONS: chest pain TECHNIQUE: One view of the chest was acquired. COMPARISON: [facility], CR, XR CHEST 1V, 04/22/2024, 12:18. [facility], CR, XR CHEST 1 VIEW, 05/01/2024, 12:38. [facility], CR, XR CHEST 1V, 05/02/2024, 14:08. FINDINGS: Surgical changes and devices: Cholecystectomy clips are seen. There is truncation of the right distal clavicle. Lungs and pleura: An incomplete inspiratory result is noted, causing a crowded appearance to the lung markings. No focal infiltrates are seen. No pneumothorax or significant pleural effusions are seen. Mediastinum: The cardiac contours are within normal limits. The aorta demonstrates calcification and tortuosity. Bones and chest wall: No suspicious bony lesions. Age-appropriate bony degenerative changes are seen. Overlying soft tissues appear unremarkable. IMPRESSION: Low lung volumes, without an acute abnormality seen by plain film. Postoperative and degenerative changes are seen. Dictated by: Warner Ross M.D. on 08/11/2024 at 11:51 ECG Data Attestation: I personally reviewed and interpreted this ECG as follows: Interpretation: Normal sinus rhythm with rate of 64, no obvious ST segment elevation or depression changes. T-wave inversion lead 3. T-wave flattening AVF. T-wave upright lead 2. PA 136, QRS 90, QTC 416. MDM Narrative Medical decision making narrative: 74yo with history of Afib complains generalized weakenss, nonfocal exam, nontoxic, afebrile, vitals unremarkable, Afib on EKG and monitor but no in slow or fast ventricular rate. Screening labs unremarkable. Glucose 256 known DM but labs not suggestive DKA. 1+ ketones consider dehydration and increased fluid intake. No prerenal BUN/Cr doubt significant dehydration. He ambulated in department without symptoms. Takes metoprolol in context Afib but BP adequate, keep same dose for now. Doubt stroke, hold advanced brain imaging for now, patient agrees. Afebrile, WBC normal, UA neg, CXR neg, abdomen benign, no obvious infections. No obvious cause for current generalized fatigue symptoms, he thinks it might be his meds but none are new, no dose changes recent. He would like to go home. Keep current med regimen for now. Follow-up early this next week with PCP. Return precautions discussed Discharge Plan Departure Patient Disposition: Home Clinical Impression: Generalized weakness Activity Restrictions/Additional Instructions: Generalized weakness for the last couple of days of unclear cause, though you apparently have been eating or drinking little bit less. Consider some component of dehydration. Screening lab studies unremarkable. History of atrial fibrillation known, but no no fast or slow heart rate, and no evidence of heart attack by blood work results. Consider side effect of your medications but you have been on the same medications for some time. Follow up with your regular doctor early this next week. Return to this/nearest emergency department for any change worsening symptoms or any concerns prior Prescriptions: No Action (DME) blood-glucose meter Misc See Rx Instructions .ROUTE .MEDSUPPLY Qty: 1 0RF Rx Instructions: As directed (DME) Blood Glucose Test Strip See Rx Instructions .ROUTE .MEDSUPPLY Qty: 100 3RF Rx Instructions: Use to check 1-2x a day for blood sugar (DME) lancets Misc See Rx Instructions .ROUTE .MEDSUPPLY Qty: 100 0RF Rx Instructions: Use to check blood sugars 1-2x a day (DME) Disabled Parking See Rx Instructions .ROUTE .MEDSUPPLY Qty: 1 0RF Rx Instructions: Patient qualifies for disabled parking as per the attached form. metoprolol succinate 25 mg tablet extended release 24 hr 25 mg PO QPM Qty: 60 3RF apixaban 5 mg tablet 5 mg PO QPM Qty: 60 3RF cetirizine [All Day Allergy (cetirizine)] 10 mg tablet 10 mg PO DAILY PRN digoxin 250 mcg (0.25 mg) tablet 250 mcg PO DAILY Qty: 30 3RF glipizide 10 mg tablet 10 mg PO BID Qty: 180 3RF Referrals: Tripp Spears MD [Primary Care Provider] - Stand Alone Forms: Patient Portal/API
[2024-08-11 12:42] LABS: Appearance Urine UA CLEAR; Bilirubin Urine UA 1+ (NEGATIVE); Glucose Urine UA 2+ g/dL (Negative); Ketones Urine UA 1+ (NEGATIVE); Leukocyte Esterase Urine UA NEGATIVE (NEGATIVE); Occult Blood Urine UA NEGATIVE (Negative); Protein Urine UA 1+ (Negative); Specific Gravity Urine UA >=1.030 (1.000-1.035); pH Urine UA 5.5 (4.5-8.0)
[2024-08-11 12:43] LABS: Color Urine UA Dark Yellow
[2024-08-11 12:44] LABS: Nitrite Urine UA NEGATIVE (Negative)
[2024-08-11 12:50] LABS: Ictotest Urine Positive (Negative)
[2024-08-11 12:51] LABS: Bacteria Urine Occasional (0-1); Culture Indicated Urine Cult Not Indicated; Mucus Urine 3+ (Negative); RBC Urine 0-1/HPF (0-5/HPF); Squamous Epithelial Cell Urine 0-1 /HPF (0-5/HPF); Urine Volume 10mL (spun); WBC Urine 0-1/HPF (0-5/HPF)
[2024-08-11 14:10] LABS: Troponin I < 0.012 ng/mL (0.01-0.034)
== END 2024-08-11 15:11 | disposition home or self-care (01) ==
PROVIDERS: Emergency Provider Emergency Medicine; Family Provider Internal Medicine; PCP Internal Medicine
DX: R53.1 Weakness (principal); R07.9 Chest pain, unspecified; I49.8 Other specified cardiac arrhythmias
CPT/HCPCS: 36415; 71045; 80053; 81001; 82550; 83690; 83735; 83880; 84484; 85025; 85610; 85730; 93005; 93010; 99284

== ENCOUNTER → 2024-08-24 14:01 | Outpatient (CLI) | payer MEDICARE, BC, SELFPAY ==
[2024-02-24 21:44] VITALS: BMI 27.2
[2024-08-24 14:50] LABS: Add Manual Diff / Slide Review NO; Basophils Absolute Auto 100 /uL (0-100); Basophils Percent Auto 0.9 % (0-2); Eosinophils Absolute Auto 200 /uL (0-450); Eosinophils Percent Auto 3.7 % (2-4); Hematocrit 45.2 % (41-53); Hemoglobin 15.5 g/dL (13.5-17.5); Lymphocytes Absolute Auto 2100 /uL (1100-4500); Lymphocytes Percent Auto 34.6 % (25-40); Mean Corpuscular HGB Conc 34.2 % (30-36); Mean Corpuscular Hemoglobin 35.1 PG (26-34); Mean Corpuscular Volume 102.5 fL (80-100); Monocytes Absolute Auto 800 /uL (0-900); Monocytes Percent Auto 13.5 % (3-14); Neutrophils Absolute Auto 2900 /uL (1500-7000); Neutrophils Percent Auto 47.3 % (50-75); Platelet Count 205 X10^3/uL (150-400); Red Blood Cell Count 4.42 X10^6/uL (4.5-5.9); Red Cell Distribution Width 14.4 % (11.6-14.8); White Blood Cell Count 6.2 X10^3/uL (4.5-11.0)
[2024-08-24 15:09] LABS: Digoxin < 0.4 ng/mL (0.8-2.0)
== END ==
PROVIDERS: Family Provider Internal Medicine; PCP Internal Medicine; Referring Provider Internal Medicine; Visit Provider Internal Medicine
DX: I50.22 Chronic systolic (congestive) heart failure (principal); I48.91 Unspecified atrial fibrillation
CPT/HCPCS: 36415; 80162; 85025

== ENCOUNTER → 2024-10-19 11:13 | Outpatient (CLI) | payer MEDICARE, BC, SELFPAY ==
[2024-02-24 21:44] VITALS: BMI 27.2
[2024-10-19 13:10] LABS: Hemoglobin A1C% w Est Avg Glu 8.4 % (4.0-6.0)
[2024-10-19 13:23] LABS: BUN Creatinine Ratio 17.2 (6-22); Blood Urea Nitrogen 15 mg/dL (9-20); Calcium 9.7 mg/dL (8.4-10.2); Carbon Dioxide 27 mmol/L (22-32); Chloride 102 mmol/L (98-107); Estimated Glomerular Filt Rate > 60 mL/min (>60); Glucose 234 mg/dL (80-110); HEMOLYSIS < 15 (0-50); Potassium 4.5 mmol/L (3.4-5.1); Sodium 137 mmol/L (137-145)
== END ==
PROVIDERS: Family Provider Internal Medicine; PCP Internal Medicine; Referring Provider Internal Medicine; Visit Provider Internal Medicine
DX: E11.65 Type 2 diabetes mellitus with hyperglycemia (principal); I48.0 Paroxysmal atrial fibrillation; I10 Essential (primary) hypertension
CPT/HCPCS: 36415; 80048; 83036

== ENCOUNTER → 2024-11-05 08:31 | Outpatient (CLI) | payer MEDICARE, BC, SELFPAY ==
[2024-02-24 21:44] VITALS: BMI 27.2
--- NOTE | 2024-11-05 08:33 | DI.NM.S_ITS ---
PROCEDURE: NM CAROL ANN PERF SPECT R&S PHARM Rest and pharmacological stress myocardial perfusion SPECT with gated imaging and ejection fraction RADIOPHARMACEUTICAL: 11.0 mCi Tc-99m tetrafosmin IV at rest and 25.9 mCi Tc-99m tetrafosmin IV at peak effect of pharmacological stress. [id number] was performed. INDICATIONS: longstanding persistent atrial fibrilation TECHNIQUE: Radiopharmaceutical was injected at peak stress test, and also at rest. SPECT images were obtained. SPECT myocardial perfusion images were displayed in short axis, horizontal long axis, and vertical long axis views. Gated images were reviewed using TermSc[employer] software. COMPARISON: None. CARDIAC STRESS: A pharmacologic stress test was performed under the supervision of an attending staff, using an infusion of lexiscan 0.4mg IV X1. Hemodynamic data: There is normal blood pressure and heart rate response to pharmacologic stress. Symptoms: The patient denied anginal chest pain. Aminophylline: none EKG: No diagnostic changes of ischemia; brief 5 beat run of atrial tachycardia. FINDINGS: Raw data: There is good myocardial uptake of radiotracer. No significant motion artifacts. Left ventricle function: Gated images demonstrate normal left ventricular wall thickening. No segmental wall motion abnormalities. No transient ischemic dilation; TID is 0.94 (normal less than 1.3). Left ventricle resting end diastolic volume is 146 mL. Left ventricle stress ejection fraction is 62%; normal range is above 45%. Myocardial perfusion: There is a moderately intense fixed apical defect that improves with prone suggesting artifact with probable old prior infarction. There is a moderately intense fixed inferior wall defect that improves with prone suggesting artifact with probable old prior infarction. No ischemia. SSS 10, SRS 14. IMPRESSION: Abnormal pharm nuclear stress test. 1) There is a moderately intense fixed apical defect that improves with prone imging, suggesting artifact with probable old prior infarction. There is a moderately intense fixed inferior wall defect that improves with prone imaging, suggesting artifact with probable old prior infarction. No ischemia. SSS 10, SRS 14. 2) Enlarged left ventricle (resting EDV 146cc) with normal wall motion and normal systolic function (EF post stress 62%). 3) No diagnostic ST changes with lexiscan. 4) No angina during the study. 5) No prior nuclear stress test available for comparison. Dictated by: Adriana Sinha MD on 11/06/2024 at 16:43 Approved by: Adriana Sinha MD on 11/06/2024 at 16:48
== END ==
PROVIDERS: Family Provider Internal Medicine; PCP Internal Medicine; Referring Provider Internal Medicine; Visit Provider Internal Medicine
DX: I48.11 Longstanding persistent atrial fibrillation (principal); R94.39 Abnormal result of other cardiovascular function study
CPT/HCPCS: 78452; 93017; A9502; J2785

== ENCOUNTER → 2024-11-21 10:22 | Outpatient (CLI) | payer MEDICARE, BC, SELFPAY ==
[2024-02-24 21:44] VITALS: BMI 27.2
[2024-11-21 11:55] LABS: Add Manual Diff / Slide Review NO; Basophils Absolute Auto 0 /uL (0-100); Basophils Percent Auto 0.8 % (0-2); Eosinophils Absolute Auto 100 /uL (0-450); Eosinophils Percent Auto 2.5 % (2-4); Hematocrit 46.3 % (41-53); Hemoglobin 15.9 g/dL (13.5-17.5); Lymphocytes Absolute Auto 1200 /uL (1100-4500); Lymphocytes Percent Auto 21.2 % (25-40); Mean Corpuscular HGB Conc 34.4 % (30-36); Mean Corpuscular Hemoglobin 35.3 PG (26-34); Mean Corpuscular Volume 102.7 fL (80-100); Monocytes Absolute Auto 600 /uL (0-900); Monocytes Percent Auto 10.3 % (3-14); Neutrophils Absolute Auto 3800 /uL (1500-7000); Neutrophils Percent Auto 65.2 % (50-75); Platelet Count 184 X10^3/uL (150-400); Red Cell Distribution Width 14.1 % (11.6-14.8); White Blood Cell Count 5.8 X10^3/uL (4.5-11.0)
[2024-11-21 12:14] LABS: BUN Creatinine Ratio 19.7 (6-22); Blood Urea Nitrogen 15 mg/dL (9-20); Calcium 9.6 mg/dL (8.4-10.2); Carbon Dioxide 21 mmol/L (22-32); Chloride 105 mmol/L (98-107); Estimated Glomerular Filt Rate > 60 mL/min (>60); Glucose 242 mg/dL (80-110); HEMOLYSIS < 15 (0-50); Potassium 4.4 mmol/L (3.4-5.1); Sodium 135 mmol/L (137-145)
== END ==
PROVIDERS: Family Provider Internal Medicine; PCP Internal Medicine; Referring Provider Internal Medicine Cardiovascular Disease; Visit Provider Internal Medicine Cardiovascular Disease
DX: I48.91 Unspecified atrial fibrillation (principal)
CPT/HCPCS: 36415; 80048; 85025

== ENCOUNTER → 2024-12-06 15:33 | Outpatient (CLI) | payer MEDICARE, BC, SELFPAY ==
[2024-02-24 21:44] VITALS: BMI 27.2
--- NOTE | 2024-12-06 15:34 | DI.RAD.S_ITS ---
PROCEDURE: XR CERVICAL SPINE 4V OR 5V INDICATIONS: NECK PAIN TECHNIQUE: 5 views of the cervical spine acquired. COMPARISON: None. FINDINGS: Bones: No fractures or dislocations to the T1 level. Status post ACDF from C3-C6 with intervertebral disc spacer. Trace anterolisthesis of C7 on T1. blique images demonstrate no bony foraminal stenoses. No evidence of hardware complication. Bilateral bony foraminal narrowing seen on oblique views. Soft tissues: No prevertebral soft tissue swelling. IMPRESSION: Status post C3-C6 ACDF with intervertebral disc spacer without evidence of hardware complication. No acute osseous abnormality. C7-T1 spondylolisthesis. Multilevel degenerative changes and bilateral bony foraminal narrowing worse at C5 and C6 levels bilaterally. Approved by: Essie Conti M.D.,Ph.D. on 12/06/2024 at 16:04
== END ==
LOC: RAD 15:34
PROVIDERS: Family Provider Internal Medicine; PCP Internal Medicine; Referring Provider Physical Medicine & Rehabilitation; Visit Provider Physical Medicine & Rehabilitation
DX: M47.812 Spondylosis without myelopathy or radiculopathy, cervical region (principal); M48.02 Spinal stenosis, cervical region; M54.2 Cervicalgia; M43.13 Spondylolisthesis, cervicothoracic region; Z98.1 Arthrodesis status
CPT/HCPCS: 72050

== ENCOUNTER 2024-12-08 14:56 | Emergency (ER) | payer MEDICARE, BC, SELFPAY ==
[2024-02-24 21:44] VITALS: BMI 27.2
[2024-12-08] VITALS (7 sets, daily range): BP systolic 128–153; BP diastolic 80–100; PULSE 70–82; RESP 14–20; TEMP 36.4; O2SAT 94–100; BMI 26.7
--- NOTE | 2024-12-08 15:02 | EKG_ITS ---
[place] [id number] [place] [id number] Test Date: 2024-12-08 Pat Name: Joel Moreland Department: 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
--- NOTE | 2024-12-08 15:08 | DI.RAD.S_ITS ---
PROCEDURE: XR CHEST 1V INDICATIONS: chest pain TECHNIQUE: One view of the chest was acquired. COMPARISON: [facility], CR, XR CHEST 1V, 08/11/2024, 11:54. FINDINGS: Surgical changes and devices: None. Lungs and pleura: Lungs are clear. No pleural effusions or pneumothorax. Mediastinum: Mediastinal contours appear normal. Heart size is normal. Bones and chest wall: No suspicious bony lesions. Overlying soft tissues appear unremarkable. Postsurgical changes of the right acromioclavicular joint. IMPRESSION: No acute cardiopulmonary abnormality is seen. Dictated by: Foreign Richter M.D. on 12/08/2024 at 15:11 Approved by: Foreign Richter M.D. on 12/08/2024 at 15:11
[2024-12-08 15:22] LABS: Add Manual Diff / Slide Review NO; Basophils Absolute Auto 100 /uL (0-100); Basophils Percent Auto 1.1 % (0-2); Eosinophils Absolute Auto 200 /uL (0-450); Eosinophils Percent Auto 3.2 % (2-4); Hematocrit 44.2 % (41-53); Hemoglobin 15.4 g/dL (13.5-17.5); Lymphocytes Absolute Auto 1100 /uL (1100-4500); Lymphocytes Percent Auto 22.1 % (25-40); Mean Corpuscular HGB Conc 34.9 % (30-36); Mean Corpuscular Hemoglobin 35.7 PG (26-34); Mean Corpuscular Volume 102.3 fL (80-100); Monocytes Absolute Auto 500 /uL (0-900); Monocytes Percent Auto 9.5 % (3-14); Neutrophils Absolute Auto 3200 /uL (1500-7000); Neutrophils Percent Auto 64.1 % (50-75); Platelet Count 170 X10^3/uL (150-400); Red Blood Cell Count 4.32 X10^6/uL (4.5-5.9); Red Cell Distribution Width 14.2 % (11.6-14.8)
[2024-12-08 15:28] LABS: INR 1.1 (0.9-1.3); Prothrombin Time 12.3 SECONDS (9.4-12.5)
[2024-12-08 15:31] LABS: PTT Partial Thromboplastin Tim 31 SECONDS (25.1-36.5)
[2024-12-08 15:33] LABS: Alanine Aminotransferase 60 IU/L (<50); Albumin 4.3 g/dL (3.5-5.0); Albumin Globulin Ratio 1.8 (1.0-2.8); Alkaline Phosphatase 136 U/L (38-126); Aspartate Aminotransferase 56 IU/L (17-59); BUN Creatinine Ratio 16.3 (6-22); Bilirubin Total 0.7 mg/dL (0.2-1.3); Blood Urea Nitrogen 13 mg/dL (9-20); Calcium 9.5 mg/dL (8.4-10.2); Carbon Dioxide 26 mmol/L (22-32); Chloride 103 mmol/L (98-107); Creatine Kinase 68 U/L (55-170); Estimated Glomerular Filt Rate > 60 mL/min (>60); Globulin 2.4 g/dL (1.7-4.1); Glucose 307 mg/dL (80-110); HEMOLYSIS < 15 (0-50); Lipase 63 U/L (23-300); Magnesium 1.9 mg/dL (1.6-2.3); Sodium 135 mmol/L (137-145); Total Protein 6.7 g/dL (6.3-8.2)
[2024-12-08 15:45] LABS: NT-proBNP (BNP-Adult 18+) 67 pg/mL (<450); Troponin I < 0.012 ng/mL (0.01-0.034)
--- NOTE | 2024-12-08 17:34 | ED_ITS ---
HPI - Chest Pain General Chief Complaint: Chest Pain Stated Complaint: afib Time Seen by Provider: 12/08/24 17:34 Source: patient Mode of arrival: Ambulatory Limitations: no limitations History of Present Illness HPI narrative: 74-year-old male history of atrial fibrillation on Eliquis, diabetes had ablation on November [address] Lincoln has felt weird the past 2 days felt pulse today and felt like it was abnormal and atrial fibrillation. Patient states still on Eliquis also taking glipizide. He states he was felt little bit went tried sleepy last couple of days. He was felt some palpitations intermittently but no chest pain or pressure, no shortness of breath. No fevers or chills. No nausea or vomiting. No other GI or urinary symptoms. No swelling in his extremities. Patient does not believe he was on anything else besides Eliquis in his glipizide. He does mention that he sometimes has a little bit depressed and has PTSD type symptoms with significant nightmares related to his time in [place] and the loss of his . Patient denies any suicidal ideation or thoughts of harming others. Does have some resources but is interested in meeting with the DIAL EQUIPMENT ENGINEER for potential resources. Patient has follow up on December 24 with his cardiology team. Related Data Home Medications Medication Instructions Recorded Confirmed cetirizine 10 mg tablet (All Day 10 mg PO DAILY PRN 04/23/24 10/23/24 Allergy (cetirizine)) apixaban 5 mg tablet 5 mg PO BID 10/23/24 Previous Rx's Medication Instructions Recorded blood sugar diagnostic (Blood #100 ea 04/03/21 Glucose Test strips) blood-glucose meter #1 ea 04/03/21 lancets #100 ea 04/03/21 Disabled Parking #1 ea 03/17/23 glipizide 10 mg tablet 10 mg PO BID #180 tabs 02/28/24 Allergies Allergy/AdvReac Type Severity Reaction Status Date / Time metformin AdvReac Severe I had all Verified 12/08/24 15:00 the side effects lorazepam AdvReac Intermediate Headache Verified 12/08/24 15:00 Review of Systems Review of Systems ROS Unobtainable: All systems reviewed & are unremarkable except as noted in HPI and below Patient History Medical History Atrial fibrillation with rapid ventricular response History of COVID-19 (~2020) PTSD (post-traumatic stress disorder) COPD (chronic obstructive pulmonary disease) History of cardioversion Paroxysmal atrial fibrillation Unspecified asthma (06/08/11) Esophageal dysmotility Hyperlipidemia Hypothyroidism Type 2 diabetes mellitus without complication (11/16/17) Essential hypertension (11/16/17) 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/17) Atrial fibrillation (03/12/14) Chronic cholecystitis Surgical History S/P lumbar fusion H/O vasectomy History of arthroscopy of right shoulder Hx of shoulder surgery Hx of eye surgery Hx of bilateral cataract extraction Hx of arthroscopy of left knee Hx of arthroscopy of right knee Hx of fusion of cervical spine (2017) History of carpal tunnel repair Status post hernia repair Status post cholecystectomy History of knee replacement Family History Mother Hypertension Gallstones Father Hypertension Cancer Grandmother Hypertension Heart disease Cancer Social History marital status: number of children: 1 household members: none lives independently: Yes caregiver/support person: No housing: house pets and animals: No education level: college occupational status: other current occupational exposures/hazards: No 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 steve/anglican: None leisure activities: fishing and other Smoking Status: Never smoker Tobacco: How many years used: 0 quit status: quit date established second hand exposure: Yes alcohol intake: current substance use type: does not use eating out: 1-3 times/week Type(s) of exercise: other and normal ROM and activity Smoking Status: Never smoker alcohol intake frequency: holidays/special occasions only Exam Initial Vital Signs Initial Vital Signs: Vital Signs Temperature 97.6 F 12/08/24 15:00 Pulse Rate 82 12/08/24 15:00 Respiratory Rate 18 12/08/24 15:00 Blood Pressure 153/82 H 12/08/24 15:00 Pulse Oximetry 94 12/08/24 15:00 Oxygen Delivery Method Room Air 12/08/24 15:00 Course Orders Ordered: ED Orders 12/08/24 15:02 EKG-12 Lead Stat 12/08/24 15:08 XR chest 1V Stat 12/08/24 15:14 Complete Blood Count AUTO DIFF Stat Comprehensive Metabolic Panel Stat Lipase Stat Magnesium Stat NT-proBNP (BNP-Adult 18+) Stat PTT Partial Thromboplastin Julián Stat Prothrombin Time INR Stat Troponin & CK Cardiac Panel Stat 12/08/24 17:13 Trop I [Troponin I] Stat 12/08/24 17:51 Consult to [facility] [place] - Proofing Machine Operator Stat Vital Signs Vital signs: Vital Signs - 8 hr 12/08/24 15:00 12/08/24 15:15 12/08/24 16:38 Temperature 97.6 F Pulse Rate 82 81 77 Respiratory Rate 18 14 18 Blood Pressure 153/82 H 151/84 H Pulse Oximetry 94 96 94 Oxygen Delivery Method Room Air Room Air 12/08/24 16:51 12/08/24 17:00 12/08/24 17:00 Temperature Pulse Rate 70 76 Respiratory Rate 20 20 Blood Pressure 146/80 H 147/100 H Pulse Oximetry 96 96 Oxygen Delivery Method Room Air 12/08/24 17:30 12/08/24 18:04 Temperature Pulse Rate 73 Respiratory Rate 17 Blood Pressure 128/83 Pulse Oximetry 95 100 Oxygen Delivery Method MDM - Chest Pain Lab Data 12/08/24 15:14 12/08/24 15:14 Labs: Lab Results 12/08/24 12/08/24 Range/Units 15:14 17:13 WBC 5.0 (4.5-11.0) X10^3/uL RBC 4.32 L (4.5-5.9) X10^6/uL Hgb 15.4 (13.5-17.5) g/dL Hct 44.2 (41-53) % MCV 102.3 H (80-100) fL MCH 35.7 H (26-34) PG MCHC 34.9 (30-36) % RDW 14.2 (11.6-14.8) % Plt Count 170 (150-400) X10^3/uL Neut % (Auto) 64.1 (50-75) % Lymph % (Auto) 22.1 L (25-40) % [place] % (Auto) 9.5 (3-14) % Eos % (Auto) 3.2 (2-4) % Baso % (Auto) 1.1 (0-2) % Neut # (Auto) 3200 (6201-9704) /uL Lymph # (Auto) 1100 (4090-3449) /uL [place]on # (Auto) 500 (0-900) /uL Eos # (Auto) 200 (0-450) /uL Baso # (Auto) 100 (0-100) /uL PT 12.3 (9.4-12.5) SECONDS INR 1.1 (0.9-1.3) APTT 31 (25.1-36.5) SECONDS Sodium 135 L (137-145) mmol/L Potassium 4.0 (3.4-5.1) mmol/L Chloride 103 (98-107) mmol/L Carbon Dioxide 26 (22-32) mmol/L BUN 13 (9-20) mg/dL Creatinine 0.80 (0.66-1.25) mg/dL Estimated GFR > 60 (>60) mL/min BUN/Creatinine Ratio 16.3 (6-22) Glucose 307 H (80-110) mg/dL Calcium 9.5 (8.4-10.2) mg/dL Magnesium 1.9 (1.6-2.3) mg/dL Total Bilirubin 0.7 (0.2-1.3) mg/dL AST 56 (17-59) IU/L ALT 60 H (<50) IU/L Alkaline Phosphatase 136 H (38-126) U/L Total Creatine Kinase 68 (55-170) U/L Troponin I < 0.012 < 0.012 (0.01-0.034) ng/mL NT-Pro-B Natriuret Pep 67 (<450) pg/mL Total Protein 6.7 (6.3-8.2) g/dL Albumin 4.3 (3.5-5.0) g/dL Globulin 2.4 (1.7-4.1) g/dL Albumin/Globulin Ratio 1.8 (1.0-2.8) Lipase 63 (23-300) U/L Imaging Data Chest x-ray: Radiologist's Impression: Joel Moreland?(Saran)??74??M??1950 ? Allergy/Adv: metformin, lorazepam (More??) Close Chest X-Ray (Signed) Foreign Richter - 12/08/24 Cervical Spine X-Ray (Signed) Essie Conti - 12/06/24 Outside DI 11/09/24 Myocardial Perfusion Scan Nuc Med (Signed) Jerson Sinhau - 11/05/24 Chest X-Ray (Signed) Warner Ross - 08/11/24 Radiology Report (Cancelled) Will Anderson - 08/09/24 Echocardiogram Ultrasound (Signed) Gerardo Collins - 08/09/24 Chest X-Ray (Signed) Matthew Harris - 05/02/24 Chest X-Ray (Signed) Gallito,Essie - 04/22/24 Chest X-Ray (Signed) Warner Ross - 03/04/24 Echocardiogram Ultrasound (Signed) Mireya Jenkins - 02/24/24 Telemetry Strips 02/24/24 Telemetry Strips 02/24/24 Chest X-Ray (Signed) Juan Manuel Hong - 02/24/24 Shoulder MRI (Signed) Anthony Collins - 08/18/23 Chest CTA (Signed) Felton Yoo - 05/21/23 Chest X-Ray (Signed) Jerman Lunsford - 05/21/23 Lumbar Spine X-Ray (Signed) Jerman Lunsford - 05/16/23 Lumbar Spine MRI (Signed) Joaquim Reynoso - 03/12/23 Carotid Doppler Study (Signed) Warner Ross - 06/04/22 Brain MRI (Signed) Nayan Perez - 06/04/22 Lumbar Spine MRI (Signed) Dinesh Sanchez - 04/18/22 Chest X-Ray (Signed) Warner Ross - 09/19/21 Chest X-Ray (Signed) Kumar Richter - 04/10/21 Outside Echo 04/01/[address] (Signed) Evie Man - 04/30/20 Barium Swallow X-Ray (Signed) Selvin King - 04/30/20 Echocardiogram Ultrasound (Signed) Will Anderson - 11/28/19 Carotid Doppler Study (Signed) Jeri Castro - 10/09/19 Brain MRI (Signed) Vee Penn - 10/09/[address] (Signed) Jeri Castro - 09/25/[address] [address] XRay Report Signed Patient: Joel Moreland MR#: [id number] : 1950 Acct:[id number] Age/Sex: 74 / M Date of Service: 12/08/24 Loc: ED Accession Number: [id number] Procedure: XR chest 1V Ordering Provider: Christine Marrero D.O. PROCEDURE: XR CHEST 1V INDICATIONS: chest pain TECHNIQUE: One view of the chest was acquired. COMPARISON: [facility], XR CHEST 1V, 08/11/2024, 11:54. FINDINGS: Surgical changes and devices: None. Lungs and pleura: Lungs are clear. No pleural effusions or pneumothorax. Mediastinum: Mediastinal contours appear normal. Heart size is normal. Bones and chest wall: No suspicious bony lesions. Overlying soft tissues appear unremarkable. Postsurgical changes of the right acromioclavicular joint. IMPRESSION: No acute cardiopulmonary abnormality is seen. Dictated by: Foreign Richter M.D. on 12/08/2024 at 15:11 Approved by: Foreign Richter M.D. on 12/08/2024 at 15:11 ECG Data Attestation: I personally reviewed and interpreted this ECG as follows: Interpretation: Normal sinus rhythm rate of 76 OH 164 QRS of 96 QTC 414, no acute ST elevation appears to be in sinus rhythm. MDM Narrative Medical decision making narrative: EKG shows sinus rhythm Chest x-ray shows no acute change Labs show white count of 5 hemoglobin of 15.4 platelets of 170, coags are negative, sodium is 135 electrolytes are otherwise appropriate creatinine 0.8 glucose is 307. Patient appears to around about 2 to 300s fairly regularly occasionally in the 100 range labs dating back to 2020 ALT 60 alk-phos is 136 AST is 56 with a total bilirubin of 0.7 lipase is 63. Troponins less than 0.012, repeat troponin is negative. Patient has had some depressive thoughts plan to meet with DIAL EQUIPMENT ENGINEER but he was not having any SI HI or high-risk concerning changes. He was interesting potentially counseling resources. 74-year-old male recent ablation on November 23 patient has had occasional palpitations no chest pain occasional PACs and PVCs here in the department but no arrhythmias. Patient is felt appropriate for discharge has follow up in the next 2 weeks with Cardiology asked that he reach out to make sure they do not want any additional monitoring before his office visit. He is on Eliquis but nothing for rate control currently. Discharge Plan Departure Patient Disposition: Home Clinical Impression: Palpitations Instructions: DI for Palpitations Activity Restrictions/Additional Instructions: Follow up with your certified medication aide, you have had occasional PVCs or PACs but no arrhythmias here in the department. Please call the office Tuesday morning see if they would like to have you be seen sooner or have any additional monitoring. Continue your home medications as prescribed. You are and a blood thinner but nothing for rate control at this time. Please return for new or worsening chest pain, shortness of breath, lightheadedness or passing out, fevers, coughing up blood, new swelling of your extremities or other new or concerning changes. Prescriptions: No Action (DME) blood-glucose meter Misc See Rx Instructions .ROUTE .MEDSUPPLY Qty: 1 0RF Rx Instructions: As directed (DME) Blood Glucose Test Strip See Rx Instructions .ROUTE .MEDSUPPLY Qty: 100 3RF Rx Instructions: Use to check 1-2x a day for blood sugar (DME) lancets Misc See Rx Instructions .ROUTE .MEDSUPPLY Qty: 100 0RF Rx Instructions: Use to check blood sugars 1-2x a day (DME) Disabled Parking See Rx Instructions .ROUTE .MEDSUPPLY Qty: 1 0RF Rx Instructions: Patient qualifies for disabled parking as per the attached form. cetirizine [All Day Allergy (cetirizine)] 10 mg tablet 10 mg PO DAILY PRN apixaban 5 mg tablet 5 mg PO BID glipizide 10 mg tablet 10 mg PO BID Qty: 180 3RF Referrals: Trae Serrano MD [Physician] - Tripp Spears MD [Primary Care Provider] - Stand Alone Forms: Patient Portal/API/Survey
[2024-12-08 17:50] LABS: Troponin I < 0.012 ng/mL (0.01-0.034)
--- NOTE | 2024-12-08 19:18 | CM.SWNOTE ---
ED CHEF BROILER OR FRY Assessment Note: Pt is a 74yo male, resident of [place], admitted to the ED for palpitations. Pt lives in a house alone. Pt's Primary Care Provider is Dr. Tripp Spears and insurance is Medicare and [facility]. Reviewed chart and discussed with multidisciplinary team pt's medical status and initial discharge needs. Per Provider, pt would benefit from MH referrals as anxiety could be the source of palpitations, identified stress symptoms due to previous line of work ([place] and [employer]). CHEF BROILER OR FRY entered room to meet with patient, introduced self and role. Pt endorses he does not have a MH provider at this time and is considering starting therapy soon. CHEF BROILER OR FRY provided contacts for [facility], Medicare contracted therapists in the area as well as providers who specialize with a background. ED CHEF BROILER OR FRY spent some time utilizing empathetic listening and some planning of identifying pt supports in the area. Plan: Pt to discharge home, transporting self, and will follow up with client advisor per discharge instructions. BRUNO PlazaSW
== END 2024-12-08 19:01 | disposition home or self-care (01) ==
PROVIDERS: Emergency Provider Emergency Medicine; Family Provider Internal Medicine; PCP Internal Medicine
DX: R00.2 Palpitations (principal); Z86.79 Personal history of other diseases of the circulatory system; Z79.01 Long term (current) use of anticoagulants; E11.9 Type 2 diabetes mellitus without complications
CPT/HCPCS: 36415; 71045; 80053; 82550; 83690; 83735; 83880; 84484; 85025; 85610; 85730; 93005; 99284

== ENCOUNTER → 2025-01-11 08:49 | Outpatient (CLI) | payer MEDICARE, BC, SELFPAY ==
[2024-02-24 21:44] VITALS: BMI 27.2
[2025-01-11 09:48] LABS: Alanine Aminotransferase 50 IU/L (<50); Albumin 4.4 g/dL (3.5-5.0); Albumin Globulin Ratio 1.8 (1.0-2.8); Alkaline Phosphatase 152 U/L (38-126); Aspartate Aminotransferase 52 IU/L (17-59); BUN Creatinine Ratio 16.3 (6-22); Blood Urea Nitrogen 13 mg/dL (9-20); Calcium 9.4 mg/dL (8.4-10.2); Carbon Dioxide 25 mmol/L (22-32); Chloride 103 mmol/L (98-107); Estimated Glomerular Filt Rate > 60 mL/min (>60); Globulin 2.4 g/dL (1.7-4.1); Glucose 227 mg/dL (80-110); HEMOLYSIS < 15 (0-50); Sodium 137 mmol/L (137-145); Total Protein 6.8 g/dL (6.3-8.2)
[2025-01-11 09:57] LABS: Free T4, Direct Thyroxine 0.78 ng/dL (0.78-2.19)
[2025-01-11 10:11] LABS: Thyroid Stimulating Hormone 7.03 uIU/mL (0.47-4.68)
[2025-01-11 10:38] LABS: Hemoglobin A1C% w Est Avg Glu 9.3 % (4.0-6.0)
== END ==
PROVIDERS: Family Provider Internal Medicine; PCP Internal Medicine; Referring Provider Internal Medicine; Visit Provider Internal Medicine
DX: E11.65 Type 2 diabetes mellitus with hyperglycemia (principal); E03.9 Hypothyroidism, unspecified
CPT/HCPCS: 36415; 80053; 83036; 84439; 84443

== ENCOUNTER → 2025-01-12 12:26 | Outpatient (CLI) | payer MEDICARE, BC, SELFPAY ==
[2024-02-24 21:44] VITALS: BMI 27.2
--- NOTE | 2025-01-12 12:27 | DI.CT.S_ITS ---
PROCEDURE: CT ABDOMEN PELVIS W CON INDICATIONS: Dyspepsia TECHNIQUE: After the administration of intravenous contrast, axial sections acquired from the lung bases to the pubic symphysis. Coronal and sagittal reformats were performed. For radiation dose reduction, the following was used: automated exposure control, adjustment of mA and/or kV according to patient size. COMPARISON: [facility], CR, XR LUMBAR SPINE 2 OR 3 VIEWS, 06/30/2018, 9:11. FINDINGS: Image quality: Diagnostic. Lower Chest: No significant findings. ABDOMEN: Liver: No solid mass. Steatosis. Gallbladder: Removed. Biliary ducts: No biliary dilation. Pancreas: No ductal dilation. Spleen: Size is within normal limits. Adrenal Glands: No adrenal nodules. Kidneys and Ureters: No hydronephrosis. No solid mass. No complex renal cystic lesion which requires follow up. Stomach and Bowel: Normal colonic caliber, without significant wall thickening. Appendix is normal. Scattered diverticula without inflammatory change. Minimal hiatal hernia. Peritoneum: No abnormal intraperitoneal fluid. No free air. Ventral Wall: Fat containing ventral hernia. Abdominal Nodes: No retroperitoneal or mesenteric adenopathy by size criteria. Vessels: Aorta and inferior vena cava are normal in size. PELVIS: Pelvic Organs: Unremarkable. Bladder: No bladder wall thickening, accounting for underdistention. Pelvic Nodes: No enlarged lymph nodes. Miscellaneous: Bilateral fat containing inguinal hernias are seen. Bones: No aggressive osseous abnormality. IMPRESSION: Diverticulosis. Minimal hiatal hernia. Prominent steatosis. Dictated by: Jeri Castro M.D. on 01/12/2025 at 18:15 Approved by: Jeri Castro M.D. on 01/12/2025 at 18:20
== END ==
PROVIDERS: Family Provider Internal Medicine; PCP Internal Medicine; Referring Provider Surgery; Visit Provider Surgery
DX: R10.13 Epigastric pain (principal); K57.90 Diverticulosis of intestine, part unspecified, without perforation or abscess without bleeding; K44.9 Diaphragmatic hernia without obstruction or gangrene; K76.0 Fatty (change of) liver, not elsewhere classified
CPT/HCPCS: 74177; Q9967

== ENCOUNTER → 2025-03-08 14:49 | Outpatient (CLI) | payer MEDICARE, BC, SELFPAY ==
[2024-02-24 21:44] VITALS: BMI 27.2
--- NOTE | 2025-03-08 14:50 | DI.RAD.S_ITS ---
PROCEDURE: FL JOINT INJECTION LARGE RT INDICATIONS: bilateral hip pain COMPARISON: None. TECHNIQUE: The indications, alternatives, benefits, risks, and complications of the procedure were explained to the patient. Written informed consent was obtained and placed in the chart. The patient was placed in an appropriate position on the fluoroscopy table, and a site was chosen for percutaneous access under fluoroscopic guidance. The site was prepped and draped in a sterile fashion. Local anesthetic was administered using a 1% lidocaine solution. A hypodermic or spinal needle was then used to access the symptomatic joint. Intra-articular location of the needle tip was confirmed by injecting a small amount of contrast, followed by steroid administration. The needle was then withdrawn, and a bandage applied to the puncture site. FINDINGS: Joint injected: Right hip Medications injected: 4 mL of 40 mg/mL Kenalog and 0.5% Ropivacaine mixture. Patient's pain before injection: 7-8 out of 10. Patient's pain after injection: 1-2 out of 10. Complications: None. IMPRESSION: Successful fluoroscopically guided administration of steroid and anaesthetic solution into the right hip joint. Dictated by: Jeri Castro M.D. on 03/08/2025 at 16:44 Approved by: Jeri Castro M.D. on 03/08/2025 at 16:44
[2025-03-08] MEDS: LIDOCAINE 1% 20 ML INJ (15:45)
[2025-03-08] MEDS: ROPIVACAINE 0.5% PF 5 MG/ML 20ML VIAL 20 ML INJ (15:46)
[2025-03-08] MEDS: TRIAMCINOLONE 40 MG/ML VIAL INTRA-ARTI (15:46)
== END ==
PROVIDERS: Family Provider Internal Medicine; PCP Internal Medicine; Referring Provider Orthopaedic Surgery Orthopaedic Surgery of the Spine; Visit Provider Orthopaedic Surgery Orthopaedic Surgery of the Spine
DX: M16.0 Bilateral primary osteoarthritis of hip (principal)
CPT/HCPCS: 20610; 77002; A9579; Q9967

== ENCOUNTER 2025-03-17 14:49 | Emergency (ER) | payer MEDICARE, BC, SELFPAY ==
[2024-02-24 21:44] VITALS: BMI 27.2
[2025-03-17] VITALS (8 sets, daily range): BP systolic 116–140; BP diastolic 63–91; PULSE 68–83; RESP 15–22; TEMP 36.6; O2SAT 93–97; BMI 26.3
--- NOTE | 2025-03-17 14:59 | DI.RAD.S_ITS ---
PROCEDURE: XR CHEST 1V INDICATIONS: Chest Pain TECHNIQUE: One view of the chest was acquired. COMPARISON: [facility], CR, XR CHEST 1V, 12/08/2024, 15:39. [facility], CR, XR CHEST 1V, 08/11/2024, 11:54. FINDINGS: Surgical changes and devices: ACDF of the lower cervical spine. Lungs and pleura: Lungs are clear. No pleural effusions or pneumothorax. Mediastinum: Mediastinal contours appear normal. Heart size is normal. Bones and chest wall: No suspicious bony lesions. Overlying soft tissues appear unremarkable. IMPRESSION: No acute cardiopulmonary abnormality is seen. Dictated by: Sreedhar Currie M.D. on 03/17/2025 at 15:43 Approved by: Sreedhar Currie M.D. on 03/17/2025 at 15:44
--- NOTE | 2025-03-17 14:59 | EKG_ITS ---
[address] [address] [address] [address] Test Date: 2025-03-17 Pat Name: Joel Moreland Department: Room: Gender: Male Child Watch Attendant: ALEX : 1950 Requested By: Order Number: [id number] Reading MD: Luis Miguel Keating Measurements Intervals [place] Rate: 75 P: 37 UT: 154 QRS: 16 QRSD: 94 T: 33 QT: 360 QTc: 402 Interpretive Statements Sinus rhythm with premature atrial complexes Electronically Signed On 03-20-2025 16:17:57 PDT by Luis Miguel Keating
[2025-03-17 15:16] LABS: INR 1.2 (0.9-1.3); Prothrombin Time 13.3 SECONDS (9.4-12.5)
[2025-03-17 15:19] LABS: Add Manual Diff / Slide Review NO; Basophils Absolute Auto 100 /uL (0-100); Basophils Percent Auto 1.2 % (0-2); Eosinophils Absolute Auto 300 /uL (0-450); Eosinophils Percent Auto 3.2 % (2-4); Hematocrit 45.1 % (41-53); Hemoglobin 15.9 g/dL (13.5-17.5); Lymphocytes Absolute Auto 1400 /uL (1100-4500); Lymphocytes Percent Auto 15.6 % (25-40); Mean Corpuscular HGB Conc 35.3 % (30-36); Mean Corpuscular Hemoglobin 36.3 PG (26-34); Mean Corpuscular Volume 102.9 fL (80-100); Monocytes Absolute Auto 700 /uL (0-900); Monocytes Percent Auto 8.3 % (3-14); Neutrophils Absolute Auto 6400 /uL (1500-7000); Neutrophils Percent Auto 71.7 % (50-75); PTT Partial Thromboplastin Tim 33 SECONDS (25.1-36.5); Platelet Count 155 X10^3/uL (150-400); Red Blood Cell Count 4.38 X10^6/uL (4.5-5.9); Red Cell Distribution Width 14.3 % (11.6-14.8); White Blood Cell Count 8.9 X10^3/uL (4.5-11.0)
[2025-03-17 15:21] LABS: Lactate (Lactic Acid) 1.5 mmol/L (0.7-2.1)
[2025-03-17 15:22] LABS: Alanine Aminotransferase 79 IU/L (<50); Albumin 4.2 g/dL (3.5-5.0); Albumin Globulin Ratio 1.7 (1.0-2.8); Alkaline Phosphatase 146 U/L (38-126); Aspartate Aminotransferase 53 IU/L (17-59); Bilirubin Total 0.9 mg/dL (0.2-1.3); Blood Urea Nitrogen 20 mg/dL (9-20); Calcium 9.5 mg/dL (8.4-10.2); Carbon Dioxide 23 mmol/L (22-32); Chloride 103 mmol/L (98-107); Creatine Kinase 51 U/L (55-170); Estimated Glomerular Filt Rate > 60 mL/min (>60); Globulin 2.5 g/dL (1.7-4.1); Glucose 204 mg/dL (70-99); HEMOLYSIS 17 (0-50); Lipase 93 U/L (23-300); Magnesium 1.7 mg/dL (1.6-2.3); Potassium 4.4 mmol/L (3.4-5.1); Sodium 135 mmol/L (137-145); Total Protein 6.7 g/dL (6.3-8.2)
[2025-03-17 15:33] LABS: NT-proBNP (BNP-Adult 18+) 32 pg/mL (<450); Troponin I < 0.012 ng/mL (0.01-0.034)
--- NOTE | 2025-03-17 15:46 | PC.NURSE ---
Pt reports different feeling in his chest while eating lunch. States he listened with is stethoscope and felt he was in afib so he came in. States he has been compliant with blood thinner. States he had ablation 3 months ago and was told everything looked good. Hx of cardioversion as well.
--- NOTE | 2025-03-17 17:19 | ED.ARRPALP ---
HPI - Arrhythmia/Palpitations General Chief Complaint: Arrhythmia/Palpitations Stated Complaint: Per Patient He is in AFIB Today Time Seen by Provider: 03/17/25 17:19 Source: patient, RN notes reviewed and old records reviewed Mode of arrival: Ambulatory Limitations: no limitations History of Present Illness HPI narrative: 74-year-old male history of diabetes, asthma, atrial fibrillation on Eliquis states he had a ablation a couple of months ago and has been cardioverted in the past. Presents with complaint of feeling a little bit fast earlier states his heart rate bumped up 84 than 90 and 110 stay there for little bit and then improved I states it has not really felt irregular he was noted some extra beats but no irregularly irregular type rhythm. Patient states it has resolved. He denies any chest pain or pressure no shortness of breath. Patient denies any nausea or vomiting. States no issues with bowel movements or urination he denies any swelling of the extremities. States he was physically active working in the [employer] and moving around regularly. Was eating today when this began. He states he currently feels asymptomatic. States he has had no recent medication changes is on Eliquis and glipizide states he was not on any daily medications or anything for rate control. He was scheduled to follow up for a Watchman but has to have his A1c under control before that we will occur. He follows with Dr. Spears as primary care physician has not appointment on 04/15/2025 also has a upcoming cardiology follow up with Dr. Collins through [facility] cardiology. Related Data Previous Rx's Medication Instructions Recorded blood sugar diagnostic (Blood #100 ea 04/03/21 Glucose Test strips) blood-glucose meter #1 ea 04/03/21 lancets #100 ea 04/03/21 Disabled Parking #1 ea 03/17/23 glipizide 10 mg tablet 10 mg PO BID #180 tabs 02/28/24 apixaban 5 mg tablet 5 mg PO BID #180 tabs 01/02/25 Allergies Allergy/AdvReac Type Severity Reaction Status Date / Time metformin AdvReac Severe I had all Verified 03/17/25 15:00 the side effects lorazepam AdvReac Intermediate Headache Verified 03/17/25 15:00 Review of Systems Review of Systems ROS Unobtainable: All systems reviewed & are unremarkable except as noted in HPI and below Patient History Medical History Atrial fibrillation with rapid ventricular response History of COVID-19 (~2020) PTSD (post-traumatic stress disorder) COPD (chronic obstructive pulmonary disease) History of cardioversion Paroxysmal atrial fibrillation Unspecified asthma (06/08/11) Esophageal dysmotility Hyperlipidemia Hypothyroidism Type 2 diabetes mellitus without complication (11/16/17) Essential hypertension (11/16/17) 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/17) Chronic cholecystitis Surgical History S/P lumbar fusion H/O vasectomy History of arthroscopy of right shoulder Hx of shoulder surgery Hx of eye surgery Hx of bilateral cataract extraction Hx of arthroscopy of left knee Hx of arthroscopy of right knee Hx of fusion of cervical spine (2017) History of carpal tunnel repair Status post hernia repair Status post cholecystectomy History of knee replacement Family History Mother Hypertension Gallstones Father Hypertension Cancer Grandmother Hypertension Heart disease Cancer Social History marital status: number of children: 1 household members: none lives independently: Yes caregiver/support person: No housing: house pets and animals: No education level: college occupational status: other current occupational exposures/hazards: No 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 HEENT: Head normocephalic, atraumatic, EOMI, pupils reactive, face symmetric, moist mucous membranes NECK: Supple, full range of motion CARDIOVASCULAR: Regular rate and rhythm without murmurs, rubs or gallops. No JVD. No edema bilateral lower extremities. RESPIRATORY: Breath sounds equal bilaterally, no wheezes rales or rhonchi. No tachypnea or accessory muscle use. ABDOMEN: Soft, nontender. Normoactive bowel sounds all 4 quadrants. No guarding or rebound, rigidity, no mass : No CVA tenderness EXTREMITIES: Normal range of motion, no clubbing or edema. Neurovascularly intact NEUROLOGICAL: Cranial nerves II through XII grossly intact. Moving all extremities SKIN: Warm, dry, no petechiae, no rashes or lesions. Initial Vital Signs Initial Vital Signs: Vital Signs Temperature 97.9 F 03/17/25 14:51 Pulse Rate 83 03/17/25 14:51 Respiratory Rate 15 03/17/25 14:51 Blood Pressure 134/79 03/17/25 14:51 Pulse Oximetry 96 03/17/25 14:51 Oxygen Delivery Method Room Air 03/17/25 14:51 Course Orders Ordered: ED Orders 03/17/25 14:58 Complete Blood Count AUTO DIFF Stat Comprehensive Metabolic Panel Stat Lactate (Lactic Acid) Stat Lipase Stat Magnesium Stat NT-proBNP (BNP-Adult 18+) Stat PTT Partial Thromboplastin Julián Stat Prothrombin Time INR Stat Troponin & CK Cardiac Panel Stat 03/17/25 14:59 XR chest 1V Stat EKG-12 Lead Stat RT Consult Eval and Treat NOW Discontinued Medications Aspirin (Aspirin 81 Mg Chew Tab) 324 mg PO NOW ONE Stop: 03/17/25 15:00 Last Admin: 03/17/25 15:04 Dose: Not Given Documented By: MARITZA Vital Signs Vital signs: Vital Signs - 8 hr 03/17/25 14:51 03/17/25 14:57 03/17/25 15:00 Temperature 97.9 F Pulse Rate 83 81 Respiratory Rate 15 Blood Pressure 134/79 140/91 H Pulse Oximetry 96 96 Oxygen Delivery Method Room Air 03/17/25 15:00 03/17/25 15:30 03/17/25 15:30 Temperature Pulse Rate 79 82 Respiratory Rate 16 18 Blood Pressure 123/63 Pulse Oximetry 97 95 Oxygen Delivery Method 03/17/25 16:00 03/17/25 16:00 03/17/25 16:30 Temperature Pulse Rate 77 Respiratory Rate 19 Blood Pressure 120/74 116/78 Pulse Oximetry 94 Oxygen Delivery Method 03/17/25 16:30 03/17/25 17:00 03/17/25 17:00 Temperature Pulse Rate 79 70 Respiratory Rate 19 19 Blood Pressure 127/79 Pulse Oximetry 93 94 Oxygen Delivery Method 03/17/25 17:30 03/17/25 17:30 Temperature Pulse Rate 68 Respiratory Rate 22 Blood Pressure 137/87 Pulse Oximetry 97 Oxygen Delivery Method MDM - Arrhythmia/Palpitations Lab Data 03/17/25 14:58 03/17/25 14:58 Labs: Lab Results 03/17/25 Range/Units 14:58 WBC 8.9 (4.5-11.0) X10^3/uL RBC 4.38 L (4.5-5.9) X10^6/uL Hgb 15.9 (13.5-17.5) g/dL Hct 45.1 (41-53) % MCV 102.9 H (80-100) fL MCH 36.3 H (26-34) PG MCHC 35.3 (30-36) % RDW 14.3 (11.6-14.8) % Plt Count 155 (150-400) X10^3/uL Neut % (Auto) 71.7 (50-75) % Lymph % (Auto) 15.6 L (25-40) % Humphreys % (Auto) 8.3 (3-14) % Eos % (Auto) 3.2 (2-4) % Baso % (Auto) 1.2 (0-2) % Neut # (Auto) 6400 (3203-9081) /uL Lymph # (Auto) 1400 (7587-6481) /uL Humphreys # (Auto) 700 (0-900) /uL Eos # (Auto) 300 (0-450) /uL Baso # (Auto) 100 (0-100) /uL PT 13.3 H (9.4-12.5) SECONDS INR 1.2 (0.9-1.3) APTT 33 (25.1-36.5) SECONDS Sodium 135 L (137-145) mmol/L Potassium 4.4 (3.4-5.1) mmol/L Chloride 103 (98-107) mmol/L Carbon Dioxide 23 (22-32) mmol/L BUN 20 (9-20) mg/dL Creatinine 0.77 (0.66-1.25) mg/dL Estimated GFR > 60 (>60) mL/min BUN/Creatinine Ratio 26.0 H (6-22) Glucose 204 H (70-99) mg/dL Lactate 1.5 (0.7-2.1) mmol/L Calcium 9.5 (8.4-10.2) mg/dL Magnesium 1.7 (1.6-2.3) mg/dL Total Bilirubin 0.9 (0.2-1.3) mg/dL AST 53 (17-59) IU/L ALT 79 H (<50) IU/L Alkaline Phosphatase 146 H (38-126) U/L Total Creatine Kinase 51 L (55-170) U/L Troponin I < 0.012 (0.01-0.034) ng/mL NT-Pro-B Natriuret Pep 32 (<450) pg/mL Total Protein 6.7 (6.3-8.2) g/dL Albumin 4.2 (3.5-5.0) g/dL Globulin 2.5 (1.7-4.1) g/dL Albumin/Globulin Ratio 1.7 (1.0-2.8) Lipase 93 (23-300) U/L ECG Data Attestation: I personally reviewed and interpreted this ECG as follows: Prior ECG tracings: available for review Interpretation: Sinus rhythm premature atrial complexes, rate of 75 MN 154 QRS of 94 QTC of 402, no acute ST elevation or depression. Patient was prior from 01/02 25 which shows sinus rhythm. [facility] Narrative Medical decision making narrative: EKG shows sinus rhythm premature atrial complexes. Labs show normal white count, hemoglobin his appropriate at 15.9 patient's macrocytic on prior labs as well as today, platelets are 155. INR is 1.22 sodium is 135 potassium is 4.4 Mag is 1.7 electrolytes BUN and creatinine are otherwise appropriate glucose is 204, ALT 79 alk-phos is 146 AST is 53 bilirubin is normal at 0.9 with a lipase of 93. Troponins less than 0.012. BNP is 32. Chest x-ray shows no acute change surgical changes in device show an ACDF for cervical spine. Discussed with patient had sounds like some palpitations heart rate got a little bit high for a brief period of time although he states he was outside moving around when that portion occurred he was not having any persistent symptoms he did have a few PACs but no atrial fibrillation or significant arrhythmia here. He is anticoagulated appropriately he was on glipizide but no rate controlling medication. He has had a prior ablation and cardioversion. He was has a some occasional PACs unclear if he may have had an episode of atrial fibrillation at home but none captured here. Discussed possibly starting a very low dose with the medications as his metoprolol but patient defers. Patient felt appropriate for discharge home. Discussed return precautions. Discharge Plan Departure Patient Disposition: Home Clinical Impression: Palpitations, PAC (premature atrial contraction) Instructions: DI for Palpitations Activity Restrictions/Additional Instructions: Follow up with your physician in your cardiology team. Today you did not have any arrhythmias but did have occasional extra beats or premature atrial complexes. Continue your home medications as prescribed. Please return if you have new or worsening changes chest pain, persistent palpitations, fast or irregular heartbeat, shortness of breath, nausea or vomiting, passing out or lightheadedness, new swelling of your extremities or other new or concerning changes. Prescriptions: No Action (DME) blood-glucose meter Misc See Rx Instructions .ROUTE .MEDSUPPLY Qty: 1 0RF Rx Instructions: As directed (DME) Blood Glucose Test Strip See Rx Instructions .ROUTE .MEDSUPPLY Qty: 100 3RF Rx Instructions: Use to check 1-2x a day for blood sugar (DME) lancets Misc See Rx Instructions .ROUTE .MEDSUPPLY Qty: 100 0RF Rx Instructions: Use to check blood sugars 1-2x a day (DME) Disabled Parking See Rx Instructions .ROUTE .MEDSUPPLY Qty: 1 0RF Rx Instructions: Patient qualifies for disabled parking as per the attached form. apixaban 5 mg tablet 5 mg PO BID Qty: 180 0RF glipizide 10 mg tablet 10 mg PO BID Qty: 180 3RF Referrals: Gerardo Collins MD [Physician] - Tripp Spears MD [Primary Care Provider] - Stand Alone Forms: Patient Portal/API/Survey
== END 2025-03-17 17:45 | disposition home or self-care (01) ==
PROVIDERS: Emergency Provider Emergency Medicine; Family Provider Internal Medicine; PCP Internal Medicine
DX: R00.2 Palpitations (principal); I49.1 Atrial premature depolarization
CPT/HCPCS: 71045; 80053; 82550; 83605; 83690; 83735; 83880; 84484; 85025; 85610; 85730; 93005; 99283; 99284

== ENCOUNTER → 2025-03-26 09:58 | Outpatient (CLI) | payer MEDICARE, BC, SELFPAY ==
[2024-02-24 21:44] VITALS: BMI 27.2
--- NOTE | 2025-03-27 12:36 | ST.SWALLOW ---
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 Dennis, ENT. Pt reported that he has had difficulty with swallowing pills, saliva, liquids and foods. He described a sense of globus (pointing to sternal notch) and stickling in his epiglottis. He noted that he has had difficulty swallowing for years and feels it is at a moderate to severe level. He reports a coughing sensation and chronic throat clearing. Pt also c/o vocal hoarseness and laryngospasm. Dr. 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 Pt denied neurological diagnoses, but did report that his neck was broken while serving in [employer] [facility] [employer] many years ago. He added that approximately 10 years ago, he underwent cervical fusion surgery at [facility]. He noted additional surgical procedures on C4-C5. Pt's PMH also includes GERD for which he is taking omneprozol. Subjective Observations Pt was seated in the fluoroscopy chair with directions and procedures described for him. He indicated he understood and agreed to proceed. Patient Positioning Position View Lat-A/P Imaging Lateral View Textures Administered Trials Presented Thin Liquid via Spoon (IDDSI 0 ),Thin Liquid via Cup (IDDSI 0 ),Extremely Thick Liquid via Spoon (IDDSI 4),Regular (IDDSI 7) Barium Tablet Yes The IDDSI Framework Protocol: IDDSI.1 Oral Impairment Source: The Modified Barium Swallow Impairment Profile (MBSImP??) Lip Closure No labial escape Tongue Control During Bolus Hold Cohesive bolus between tongue to palatal seal Bolus Preparation/Mastication Timely & efficient chewing & mashing Bolus Transport/Lingual Motion Brisk tongue motion Oral Residue Trace residue lining oral structures Location Tongue Initiation of Pharyngeal Swallow Bolus head at pyriforms Additional Oral Impairment Observations Oral phase of swallow WNL *OME and DKS were observed to be WNL. *Dentition natural and in good hygiene *Mastication observed with rotary chew pattern. *Good bolus formation, control and AP transition. *Velopharyngeal closure was WNL. Pharyngeal Impairment Source: The Modified Barium Swallow Impairment Profile (MBSImP??) Soft Palate Elevation No bolus between soft palate & pharyngeal wall Laryngeal Elevation Comp.sup.move.thyroid cart.w/ comp.approx.arytenoids to epiglot petiole Anterior Hyoid Excursion No anterior movement Epiglottic Movement Complete inversion Laryngeal Vestibular Closure Complete; no air/contrast in laryngeal vestibule Pharyngeal Stripping Wave Absent Pharyngoesophageal Segment Opening Complete distention & complete duration; no obstruction of flow Tongue Base Retraction Trace column of contrast/air betwn tongue base & post. pharyngeal wall Pharyngeal Residue Collection of residue within/ on pharyngeal structures Location Diffuse (>3 areas) Additional Pharyngeal Impairment *ACDF cage appeared to narrow Observations the pharynx and UES extension *Reduced base of tongue retraction strength *Adequate laryngeal elevation, no forward movement of the hyoid; complete epiglottic inversion and good seal of the laryngeal vestibule *Stripping of the posterior pharyngeal wall was not observed resulting in reduced bolus control *Vallecular pooling for semi soft and regular texture; pt reporting a sensation of particles still in his throat *No laryngeal penetration or tracheal aspiration observed Mild pharyngeal phase of swallow. A/P View The IDDSI Framework Protocol: IDDSI.1 A/P View Observations Pharyngeal Contraction Complete Esophageal Clearance Upright Position Esophageal retention w/ regtrograde flow below pharyngoesoph segment Vocal Fold Function Good Esophageal Function Slowed Clearing,Narrowing Additional A-P Observations *With thin liquid trial, 3 areas of narrowing with retro flow of contrast was observed mid-chest area. *The contrast was slow to clear the constricted esophagus. *A 13mm calibrated barium tablet stopped at the level near pt's heart and required several swallow to clear tablet to the stomach A referral to GI is recommended Clinical Impressions Dysphagia Type Pharyngeal,Esophageal Findings Mild pharyngeal and esophageal dysphagia observed. *It is possible that some of the above observations are be related to the cervical fusion procedure pt had 10 years ago ; pt's age may also be a factor *Additionally, a correlation between the reported posterior commissure atrophy and frequent coughing during meals may exist Pt would benefit from ST: targeting vocal fold adduction exercises as well as base of tongue strengthening exercises Rehabilitation Potential Excellent Patient Appropriate for Therapy Yes Recommendations Diet Comments No change in diet recommended Treatment Plan Recommended Referrals GI Consult
== END ==
PROVIDERS: Family Provider Internal Medicine; PCP Internal Medicine; Referring Provider Specialist; Visit Provider Specialist
DX: R13.13 Dysphagia, pharyngeal phase (principal); R13.14 Dysphagia, pharyngoesophageal phase
CPT/HCPCS: 74220; 74230; 92611

== ENCOUNTER 2025-04-09 17:30 | Emergency (ER) | payer MEDICARE, BC, SELFPAY ==
[2024-02-24 21:44] VITALS: BMI 27.2
[2025-04-09] VITALS (14 sets, daily range): BP systolic 112–165; BP diastolic 59–79; PULSE 57–68; RESP 16–24; TEMP 36.6; O2SAT 92–97; BMI 26.4
--- NOTE | 2025-04-09 17:43 | EKG_ITS ---
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
--- NOTE | 2025-04-09 17:43 | DI.RAD.S_ITS ---
PROCEDURE: XR CHEST 1V INDICATIONS: Chest Pain TECHNIQUE: One view of the chest was acquired. COMPARISON: [facility], CT, CT ABDOMEN PELVIS W CON, 01/12/2025, 13:37. [facility], CR, XR CHEST 1V, 03/17/2025, 15:06. [facility], CR, XR CHEST 1V, 12/08/2024, 15:39. FINDINGS: Surgical changes and devices: ACDF. Lungs and pleura: Lungs are clear. No pleural effusions or pneumothorax. Mediastinum: Mediastinal contours appear normal. Heart size is normal. Bones and chest wall: No suspicious bony lesions. Right distal clavicle osteotomy. Overlying soft tissues appear unremarkable. IMPRESSION: No acute cardiopulmonary abnormality is seen. Dictated by: Mani Abebe M.D. on 04/09/2025 at 18:12 Approved by: Mani Abebe M.D. on 04/09/2025 at 18:14
[2025-04-09 18:02] LABS: Add Manual Diff / Slide Review NO; Basophils Absolute Auto 100 /uL (0-100); Basophils Percent Auto 1.5 % (0-2); Eosinophils Absolute Auto 200 /uL (0-450); Eosinophils Percent Auto 3.4 % (2-4); Hematocrit 43.5 % (41-53); Hemoglobin 15.3 g/dL (13.5-17.5); Lymphocytes Absolute Auto 1400 /uL (1100-4500); Lymphocytes Percent Auto 24.7 % (25-40); Mean Corpuscular HGB Conc 35.1 % (30-36); Mean Corpuscular Volume 102.7 fL (80-100); Monocytes Absolute Auto 600 /uL (0-900); Monocytes Percent Auto 10.1 % (3-14); Neutrophils Absolute Auto 3500 /uL (1500-7000); Neutrophils Percent Auto 60.3 % (50-75); Platelet Count 175 X10^3/uL (150-400); Red Blood Cell Count 4.24 X10^6/uL (4.5-5.9); White Blood Cell Count 5.7 X10^3/uL (4.5-11.0)
[2025-04-09 18:11] LABS: INR 1.2 (0.9-1.3); Prothrombin Time 13.5 SECONDS (9.4-12.5)
[2025-04-09 18:14] LABS: PTT Partial Thromboplastin Tim 36 SECONDS (25.1-36.5)
[2025-04-09 18:16] LABS: Alanine Aminotransferase 47 IU/L (<50); Albumin 4.4 g/dL (3.5-5.0); Albumin Globulin Ratio 1.8 (1.0-2.8); Alkaline Phosphatase 154 U/L (38-126); Aspartate Aminotransferase 55 IU/L (17-59); BUN Creatinine Ratio 24.3 (6-22); Bilirubin Total 0.7 mg/dL (0.2-1.3); Blood Urea Nitrogen 18 mg/dL (9-20); Calcium 9.5 mg/dL (8.4-10.2); Carbon Dioxide 22 mmol/L (22-32); Chloride 106 mmol/L (98-107); Creatine Kinase 83 U/L (55-170); Estimated Glomerular Filt Rate > 60 mL/min (>60); Globulin 2.5 g/dL (1.7-4.1); Glucose 196 mg/dL (70-99); HEMOLYSIS 31 (0-50); Lipase 47 U/L (23-300); Potassium 4.2 mmol/L (3.4-5.1); Sodium 137 mmol/L (137-145); Total Protein 6.9 g/dL (6.3-8.2)
[2025-04-09 18:28] LABS: NT-proBNP (BNP-Adult 18+) 63 pg/mL (<450); Troponin I < 0.012 ng/mL (0.01-0.034)
--- NOTE | 2025-04-09 18:30 | ED_ITS ---
HPI - Chest Pain General Chief Complaint: Chest Pain Stated Complaint: chest pain heart problems Time Seen by Provider: 04/09/25 18:29 History of Present Illness HPI narrative: 74-year-old male with history of atrial fibrillation diagnosed more than 20 years ago, has been on Eliquis blood thinner medication, takes metoprolol twice daily, has had intermittent chest discomfort known to his most recent project/production manager imaging Dr. Collins, who advised oral nitrite last month and from clinic which he has not yet started. This morning 11:00 a.m. he felt like he had racing irregular heart, fell if it is atrial fibrillation might have returned and might be going fast. No syncope or presyncope symptoms. No nausea or vomiting. He has no shortness of breath. Some chest discomfort. Related Data Previous Rx's ?Medication ?Instructions ?Recorded blood sugar diagnostic (Blood #100 ea 04/03/21 Glucose Test strips) blood-glucose meter #1 ea 04/03/21 lancets #100 ea 04/03/21 [address]ing #1 ea 03/17/23 glipizide 10 mg tablet 10 mg PO BID #180 tabs 02/27 apixaban 5 mg tablet 5 mg PO BID #180 tabs Allergies Allergy/AdvReac Type Severity Reaction Status Date / Time metformin AdvReac Severe I had all Verified 03/17/25 15:00 the side effects lorazepam AdvReac Intermediate Headache Verified 03/17/25 15:00 Patient History Medical History Atrial fibrillation with rapid ventricular response History of COVID-19 (~2020) PTSD (post-traumatic stress disorder) COPD (chronic obstructive pulmonary disease) History of cardioversion Paroxysmal atrial fibrillation Unspecified asthma (06/08/11) Esophageal dysmotility Hyperlipidemia Hypothyroidism Type 2 diabetes mellitus without complication (11/16/17) Essential hypertension (11/16/17) 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/17) Chronic cholecystitis Surgical History S/P lumbar fusion H/O vasectomy History of arthroscopy of right shoulder Hx of shoulder surgery Hx of eye surgery Hx of bilateral cataract extraction Hx of arthroscopy of left knee Hx of arthroscopy of right knee Hx of fusion of cervical spine (2017) History of carpal tunnel repair Status post hernia repair Status post cholecystectomy History of knee replacement Family History Mother Hypertension Gallstones Father Hypertension Cancer Grandmother Hypertension Heart disease Cancer Social History marital status: number of children: 1 household members: none lives independently: Yes caregiver/support person: No housing: house pets and animals: No education level: college occupational status: other current occupational exposures/hazards: No 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 HEAD: Atraumatic. Normocephalic. EYES: Pupils equal round and reactive. Extraocular motions intact. No scleral icterus. No injection or drainage. ENT: Nose without bleeding, purulent drainage. Throat without erythema, tonsillar hypertrophy or exudate. Airway patent. NECK: Trachea midline. Non tender CARDIOVASCULAR: Regular rate and rhythm without murmurs, gallops, or rubs. RESPIRATORY: Clear to auscultation. Breath sounds equal bilaterally. No wheezes, rales, or rhonchi. GASTROINTESTINAL: Abdomen soft, non-tender, nondistended. EXTREMITIES: No edema or joint tenderness. BACK: Nontender without deformity or crepitance. No flank tenderness. NEURO: AOx3. Motor functions grossly nonfocal. SKIN: No rash or erythema of visible areas Initial Vital Signs Initial Vital Signs: Vital Signs Pulse Rate 68 04/09/25 17:36 Blood Pressure 130/79 04/09/25 17:36 Pulse Oximetry 93 04/09/25 17:36 Course Orders Ordered: ED Orders 04/09/25 20:05 Troponin I Stat Vital Signs Vital signs: Vital Signs - 8 hr 04/09/25 20:30 04/09/25 20:30 04/09/25 21:00 Pulse Rate 60 Respiratory Rate 16 Blood Pressure 115/66 116/59 L Pulse Oximetry 93 Oxygen Delivery Method 04/09/25 21:00 04/09/25 21:30 04/09/25 21:30 Pulse Rate 63 62 Respiratory Rate 18 17 Blood Pressure 112/68 Pulse Oximetry 93 92 Oxygen Delivery Method 04/09/25 22:00 04/09/25 22:00 04/09/25 22:30 Pulse Rate 57 L Respiratory Rate 16 Blood Pressure 113/64 115/69 Pulse Oximetry 93 Oxygen Delivery Method 04/09/25 22:30 Pulse Rate 62 Respiratory Rate 16 Blood Pressure Pulse Oximetry 92 Oxygen Delivery Method Room Air MDM - Chest Pain Lab Data Attestation: I reviewed the patient's lab results. Lab results narrative: White blood cell count 5700, hemoglobin 15.3, platelets adequate. Glucose 196. Normal renal function. Serum CO2 22. Electrolytes unremarkable. Alkaline phosphatase 154 slight elevation, other liver functions normal. Lipase normal. Troponin negative/unmeasurable. BNP normal. 04/09/25 17:49 04/09/25 17:49 Labs: Lab Results 04/09/25 04/09/25 Range/Units 17:49 20:05 WBC 5.7 (4.5-11.0) X10^3/uL RBC 4.24 L (4.5-5.9) X10^6/uL Hgb 15.3 (13.5-17.5) g/dL Hct 43.5 (41-53) % MCV 102.7 H (80-100) fL MCH 36.0 H (26-34) PG MCHC 35.1 (30-36) % RDW 14.0 (11.6-14.8) % Plt Count 175 (150-400) X10^3/uL Neut % (Auto) 60.3 (50-75) % Lymph % (Auto) 24.7 L (25-40) % Oliver % (Auto) 10.1 (3-14) % Eos % (Auto) 3.4 (2-4) % Baso % (Auto) 1.5 (0-2) % Neut # (Auto) 3500 (1549-3341) /uL Lymph # (Auto) 1400 (6130-7005) /uL Oliver # (Auto) 600 (0-900) /uL Eos # (Auto) 200 (0-450) /uL Baso # (Auto) 100 (0-100) /uL PT 13.5 H (9.4-12.5) SECONDS INR 1.2 (0.9-1.3) APTT 36 (25.1-36.5) SECONDS Sodium 137 (137-145) mmol/L Potassium 4.2 (3.4-5.1) mmol/L Chloride 106 (98-107) mmol/L Carbon Dioxide 22 (22-32) mmol/L BUN 18 (9-20) mg/dL Creatinine 0.74 (0.66-1.25) mg/dL Estimated GFR > 60 (>60) mL/min BUN/Creatinine Ratio 24.3 H (6-22) Glucose 196 H (70-99) mg/dL Calcium 9.5 (8.4-10.2) mg/dL Magnesium 2.0 (1.6-2.3) mg/dL Total Bilirubin 0.7 (0.2-1.3) mg/dL AST 55 (17-59) IU/L ALT 47 (<50) IU/L Alkaline Phosphatase 154 H (38-126) U/L Total Creatine Kinase 83 (55-170) U/L Troponin I < 0.012 < 0.012 (0.01-0.034) ng/mL NT-Pro-B Natriuret Pep 63 (<450) pg/mL Total Protein 6.9 (6.3-8.2) g/dL Albumin 4.4 (3.5-5.0) g/dL Globulin 2.5 (1.7-4.1) g/dL Albumin/Globulin Ratio 1.8 (1.0-2.8) Lipase 47 (23-300) U/L Imaging Data Chest x-ray: Radiologist's Impression: [address] [address] XRay Report Signed Patient: Joel Moreland MR#: [id number] : 1950 Acct:[id number] Age/Sex: 74 / M Date of Service: 04/09/25 Loc: ED Accession Number: [id number] Procedure: XR chest 1V Ordering Provider: Foreign Dubois MD PROCEDURE: XR CHEST 1V INDICATIONS: Chest Pain TECHNIQUE: One view of the chest was acquired. COMPARISON: Merged With [facility], CT, CT ABDOMEN PELVIS W CON, 01/12/2025, 13:37. Merged With [facility], CR, XR CHEST 1V, 03/17/2025, 15:06. Merged With [facility], CR, XR CHEST 1V, 12/08/2024, 15:39. FINDINGS: Surgical changes and devices: ACDF. Lungs and pleura: Lungs are clear. No pleural effusions or pneumothorax. Mediastinum: Mediastinal contours appear normal. Heart size is normal. Bones and chest wall: No suspicious bony lesions. Right distal clavicle osteotomy. Overlying soft tissues appear unremarkable. IMPRESSION: No acute cardiopulmonary abnormality is seen. Dictated by: Mani Abebe M.D. on 04/09/2025 at 18:12 Approved by: Mani Abebe M.D. on 04/09/2025 at 18:14 ECG Data Interpretation: Normal sinus rhythm with rate of 65, no obvious ST segment elevation or depression changes. AL 148, QRS 94, QTC 399. MDM Narrative Medical decision making narrative: 74-year-old male with history of atrial fibrillation, on Eliquis and metoprolol, was advised by his project/production manager imaging Dr. Collins last month start oral nitroglycerin which he has not done, this morning having palpitation fast heart rate sensation in chest discomfort. EKG without obvious ischemic change, normal sinus rhythm noted with rate of 65. Labs pending. Chest x-ray no acute changes. See radiology report. Electrolytes unremarkable, renal function normal, white blood cell count not elevated, initial troponin negative. We will repeat interval troponin. Repeat interval troponin also negative/unmeasurable. Advised to continue current medication regimen. Continue current dosing of metoprolol. Normal sinus heart rate 60s noted, we will leave dose of metoprolol the same for now as he might become symptomatic with bradycardia if further increased. Advised also to start the oral nitroglycerin medication prescribed by his project/production manager imaging Dr. Collins. Follow up with Dr. Collins, call his office during regular hours advised tomorrow. Return precautions discussed. Discharge Plan Departure Patient Disposition: Home Clinical Impression: Paroxysmal atrial fibrillation, Chest pain Instructions: DI for Atrial Fibrillation, DI for Chest Pain Activity Restrictions/Additional Instructions: History of paroxysmal atrial fibrillation, taking chronic blood thinner medications, follow up by your project/production manager imaging Dr. Collins who had recently advised taking oral nitroglycerin which you had not yet filled. Today with palpitation racing heart like sensation. Screening EKG shows normal sinus rhythm, it is very possible you might be having intermittent paroxysmal atrial fibrillation events. Continue taking your metoprolol medication. We did discuss increasing the dose of your metoprolol but here in the emergency department your sinus rhythm heart rate was only 60, further dose increase of your metoprolol could cause this to become low enough to become symptomatic. Serial blood tests not suggestive of heart attack at this time. No chest discomfort ongoing. Advised to fill and take the oral nitroglycerin medication that was advised by your project/production manager imaging Dr. Collins. Call the office of Dr. Collins tomorrow to arrange close follow up. Take your chronic current medications as prescribed for now. Return earlier to this/nearest emergency department for any change worsening symptoms or any concerns prior. Prescriptions: No Action (DME) blood-glucose meter Misc See Rx Instructions .ROUTE .MEDSUPPLY Qty: 1 0RF Rx Instructions: As directed (DME) Blood Glucose Test Strip See Rx Instructions .ROUTE .MEDSUPPLY Qty: 100 3RF Rx Instructions: Use to check 1-2x a day for blood sugar (DME) lancets Misc See Rx Instructions .ROUTE .MEDSUPPLY Qty: 100 0RF Rx Instructions: Use to check blood sugars 1-2x a day (DME) Disabled Parking See Rx Instructions .ROUTE .MEDSUPPLY Qty: 1 0RF Rx Instructions: Patient qualifies for disabled parking as per the attached form. apixaban 5 mg tablet 5 mg PO BID Qty: 180 0RF glipizide 10 mg tablet 10 mg PO BID Qty: 180 3RF Referrals: Tripp Spears MD [Primary Care Provider, Internal Medicine] Stand Alone Forms: Patient Portal/API
[2025-04-09 20:40] LABS: Troponin I < 0.012 ng/mL (0.01-0.034)
== END 2025-04-09 22:43 | disposition home or self-care (01) ==
PROVIDERS: Emergency Medicine; Emergency Provider Emergency Medicine; Family Provider Internal Medicine; PCP Internal Medicine
DX: I48.0 Paroxysmal atrial fibrillation (principal); Z79.01 Long term (current) use of anticoagulants; R07.9 Chest pain, unspecified
CPT/HCPCS: 36415; 71045; 80053; 82550; 83690; 83735; 83880; 84484; 85025; 85610; 85730; 93005; 99283; 99284

== ENCOUNTER → 2025-04-12 15:02 | Outpatient (CLI) | payer MEDICARE, BC, SELFPAY ==
[2024-02-24 21:44] VITALS: BMI 27.2
[2025-04-12 16:33] LABS: BUN Creatinine Ratio 20.9 (6-22); Blood Urea Nitrogen 14 mg/dL (9-20); Calcium 9.2 mg/dL (8.4-10.2); Carbon Dioxide 23 mmol/L (22-32); Chloride 105 mmol/L (98-107); Estimated Glomerular Filt Rate > 60 mL/min (>60); Glucose 136 mg/dL (70-99); HEMOLYSIS < 15 (0-50); Sodium 136 mmol/L (137-145)
[2025-04-12 16:36] LABS: Hemoglobin A1C% w Est Avg Glu 8.2 % (4.0-6.0)
== END ==
PROVIDERS: Family Provider Internal Medicine; PCP Internal Medicine; Referring Provider Internal Medicine; Visit Provider Internal Medicine
DX: E11.65 Type 2 diabetes mellitus with hyperglycemia (principal)
CPT/HCPCS: 36415; 80048; 83036

== ENCOUNTER → 2025-04-16 10:29 | Outpatient (CLI) | payer MEDICARE, BC, SELFPAY ==
[2024-02-24 21:44] VITALS: BMI 27.2
--- NOTE | 2025-04-16 10:31 | DI.CT.S_ITS ---
PROCEDURE: CT CHEST WO CON INDICATIONS: Pulmonary nodule, CT previously at [facility] TECHNIQUE: Noncontrast 5 mm thick sections acquired from the pulmonary apices to the posterior costophrenic angles. 1 mm lung window, 5 mm thick coronal and sagittal and 7 mm axial MIP reformats were then acquired. For radiation dose reduction, the following was used: automated exposure control, adjustment of mA and/or kV according to patient size. COMPARISON: [facility], CT, CT ANGIO CHEST, 11/09/2024, 11:55. [facility], CR, XR CHEST 1V, 04/09/2025, 17:37. FINDINGS: Image quality: Diagnostic. Lower Neck: No enlarged lymph nodes. Thyroid: No thyroid nodules which require sonographic follow up, per consensus guidelines. Axillae: No enlarged lymph nodes. Chest Wall: Unremarkable. Bones: Unremarkable. Lungs and Pleura: Within the right upper lobe, reticulonodular opacities are seen. No additional significant pulmonary nodule can be seen. No focal infiltrates are seen. No pneumothorax or pleural effusions. Heart: Heart size is normal. No pericardial effusion. There is moderate coronary artery calcification. Thoracic Vessels: The aorta and pulmonary arteries demonstrate normal size. Mediastinum and Mita: No enlarged lymph nodes. Esophagus: No wall thickening. No hiatal hernia. Upper Abdomen: Cholecystectomy clips are seen. Visualized upper abdomen solid organs and bowel loops appear normal. IMPRESSION: Within the right upper lobe, reticulonodular opacities can be seen which are similar to the prior examination. The appearance is nonspecific, although chronic infection is considered to be the most likely. Additional findings: Moderate coronary artery calcification Cholecystectomy Dictated by: Warner Ross M.D. on 04/16/2025 at 15:26 Approved by: Warner Ross M.D. on 04/16/2025 at 15:28
== END ==
LOC: CT 10:31
PROVIDERS: PCP Internal Medicine; Referring Provider Internal Medicine; Visit Provider Internal Medicine
DX: R91.1 Solitary pulmonary nodule (principal); I25.10 Atherosclerotic heart disease of native coronary artery without angina pectoris; Z90.49 Acquired absence of other specified parts of digestive tract
CPT/HCPCS: 71250

== ENCOUNTER → 2025-07-13 07:53 | Outpatient (CLI) | payer MEDICARE, BC, SELFPAY ==
[2024-02-24 21:44] VITALS: BMI 27.2
[2025-07-13 09:17] LABS: Alanine Aminotransferase 49 IU/L (<50); Albumin 4.5 g/dL (3.5-5.0); Albumin Globulin Ratio 1.7 (1.0-2.8); Alkaline Phosphatase 136 U/L (38-126); Blood Urea Nitrogen 18 mg/dL (9-20); Calcium 9.7 mg/dL (8.4-10.2); Carbon Dioxide 27 mmol/L (22-32); Chloride 103 mmol/L (98-107); Estimated Glomerular Filt Rate > 60 mL/min (>60); Globulin 2.6 g/dL (1.7-4.1); Glucose 159 mg/dL (70-99); HEMOLYSIS < 15 (0-50); Potassium 4.6 mmol/L (3.4-5.1); Sodium 139 mmol/L (137-145); Total Protein 7.1 g/dL (6.3-8.2)
[2025-07-13 09:19] LABS: Hemoglobin A1C% w Est Avg Glu 7.5 % (4.0-6.0)
[2025-07-13 09:44] LABS: Free T4, Direct Thyroxine 0.88 ng/dL (0.78-2.19)
[2025-07-13 09:58] LABS: Thyroid Stimulating Hormone 6.77 uIU/mL (0.47-4.68)
== END ==
PROVIDERS: PCP Internal Medicine; Referring Provider Internal Medicine; Visit Provider Internal Medicine
DX: E11.9 Type 2 diabetes mellitus without complications (principal); E03.9 Hypothyroidism, unspecified; E78.2 Mixed hyperlipidemia
CPT/HCPCS: 36415; 80053; 83036; 84439; 84443

== ENCOUNTER 2025-07-18 13:12 | Day surgery (SDC) | payer MEDICARE, BC, SELFPAY ==
[2024-02-24 21:44] VITALS: BMI 27.2
[2025-07-18] VITALS (9 sets, daily range): BP systolic 107–137; BP diastolic 67–81; PULSE 42–59; RESP 16–20; TEMP 36.2–36.6; O2SAT 48–98
[2025-07-18] MEDS: LACTATED RINGERS 1,000 ML 42 ML IV (13:42)
--- NOTE | 2025-07-18 14:34 | PM.HP.IH.1 ---
History of Present Illness History of Present Illness Date Patient Seen: 07/18/25 Time Patient Seen: 14:34 Chief complaint: EGD & Colonoscopy w/poss bx's Narrative: Saran is a 75-year-old man with a dysphagia he was also due for colonoscopy for screening. See the prior office note for details. [facility] Medical History (Updated 07/18/25 @ 14:35 by Karl Carrington MD) Pulmonary nodule Atrial fibrillation with rapid ventricular response History of COVID-19 (~2020) PTSD (post-traumatic stress disorder) COPD (chronic obstructive pulmonary disease) History of cardioversion Paroxysmal atrial fibrillation Unspecified asthma (06/08/11) Esophageal dysmotility Hyperlipidemia Hypothyroidism Type 2 diabetes mellitus without complication (11/16/17) Essential hypertension (11/16/17) 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/17) Chronic cholecystitis Surgical History S/P lumbar fusion H/O vasectomy History of arthroscopy of right shoulder Hx of shoulder surgery Hx of eye surgery Hx of bilateral cataract extraction Hx of arthroscopy of left knee Hx of arthroscopy of right knee Hx of fusion of cervical spine (2017) History of carpal tunnel repair Status post hernia repair Status post cholecystectomy History of knee replacement Family History Mother Hypertension Gallstones Father Hypertension Cancer Grandmother Hypertension Heart disease Cancer Social History marital status: number of children: 1 household members: none lives independently: Yes caregiver/support person: No housing: house pets and animals: No education level: college occupational status: other current occupational exposures/hazards: No 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 steve/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: None leisure activities: fishing and other Smoking Status: Never smoker Tobacco: How many years used: 0 quit status: quit date established second hand exposure: Yes alcohol intake: current substance use type: does not use eating out: 1-3 times/week Type(s) of exercise: other and normal ROM and activity Meds Home Medications and Allergies Home Medications ?Medication ?Instructions ?Recorded ?Confirmed ?Type blood sugar diagnostic (Blood #100 ea 04/03/21 04/15/25 Rx Glucose Test strips) blood-glucose meter #1 ea 04/03/21 04/15/25 Rx lancets #100 ea 04/03/21 04/15/25 Rx Disabled Parking #1 ea 03/17/23 04/15/25 Rx apixaban 5 mg tablet 5 mg PO BID #180 tabs 01/02/25 07/18/25 Rx glipizide 10 mg tablet 10 mg PO BID #180 tabs 04/22/25 07/18/25 Rx diltiazem HCl 30 mg tablet 30 mg PO BID 1 month #60 tabs 06/30/25 07/18/25 Rx (Cardizem) Allergies Allergy/AdvReac Type Severity Reaction Status Date / Time metformin AdvReac Severe I had all Verified 05/31/25 13:38 the side effects lorazepam AdvReac Intermediate Headache Verified 05/31/25 13:38 Exam Vital Signs (past 8 hours): - 07/18/25 13:51 Temperature 98 F Pulse Rate 59 L Respiratory Rate 20 Blood Pressure 129/72 Pulse Oximetry 94 Oxygen Delivery Method Room Air Oxygen Delivery Method Room Air Const General: healthy appearing Assessment & Plan Assessment and plan (1) Dysphagia: Qualifiers: Dysphagia type: esophageal phase Qualified Code(s): R13.19 - Other dysphagia Status: Acute (2) Colon cancer screening: Status: Acute Plan EGD for dysphagia colonoscopy for colon cancer screening Time-Based Coding :: [TOTAL MINUTES] spent with patient and on the chart (including review of chart, obtaining history, exam, reviewing outside data, placing orders, documenting exam and treatment plan, and counseling patient) on [DATE]. [facility] Emergency Room Clinician Document charge(s): No
--- NOTE | 2025-07-18 15:05 | P.OP.EGD&C_ITS ---
Operative Date/Time/Diagnoses Date of procedure: 07/18/25 Time of procedure: 15:06 Pre-op diagnosis: Dysphagia and colon cancer screening Post-op diagnosis: same Procedure & Clinicians Study performed: EGD and colonoscopy Same procedure(s) as scheduled: Yes Surgeon: Karl Carrington Anesthesia Type: MAC +/- Procedure Notes Procedure in detail: Surgeon: Karl Carrington MD Anesthesia: Mita Priest AUTOMATIC OUTSOLE CUTTER Procedure in detail: A timeout was performed. A bite blocked was placed and monitors were attached to the patient. The patient was positioned in the left lateral decubitus position. Sedation was administered. Once the patient was sedated the endoscope was inserted through the bite block and passed through the esophagus and stomach and into the duodenum. No abnormalities were noted. We then withdrew the scope into the stomach. No abnormalities were noted. The endoscope was retroflexed and a small hiatal hernia was noted. The endoscope was straightned and withdrawn into the esophagus. No strictures or other abnormalities were found. EGD findings: Small hiatal hernia Next we repositioned the patient for a colonoscopy. A digital rectal exam was performed and was normal. The colonoscope was inserted and advanced to the cecum. The appendiceal orifice was identified and photographed. The scope was slowly withdrawn over greater than 6 minutes. No polyps or other abnormalities were found. The scope was retroflexed in the rectum and no further abnormalities were seen. The scope straightened and withdrawn. Colonoscopy findings: Grossly normal colon Total procedural EBL: 0 Scope withdrawal time: 7 minutes Sedation minutes: 22 minutes Post-procedure Disposition: PACU
== END 2025-07-18 16:13 | disposition home or self-care (01) ==
PROVIDERS: PCP Internal Medicine; Referring Provider Surgery; Visit Provider Surgery
PROC: 0DJ08ZZ Inspection of Upper Intestinal Tract, Via Natural or Artificial Opening Endoscopic (ICD-10-PCS; CPT 43235; principal; 2025-07-18 14:45)
PROC: 0DJD8ZZ Inspection of Lower Intestinal Tract, Via Natural or Artificial Opening Endoscopic (ICD-10-PCS; CPT 45378; 2025-07-18 14:45)
DX: Z12.11 Encounter for screening for malignant neoplasm of colon (principal); R13.10 Dysphagia, unspecified; K44.9 Diaphragmatic hernia without obstruction or gangrene
CPT/HCPCS: 43235; G0105; 82962; J2704